=== PATIENT | male | born 1960 | race Caucasian/White ===

== ENCOUNTER 2018-02-22 01:54 | Emergency (ER) | payer SELFPAY ==
[2018-02-22] MEDS ORDERED: ALBUTEROL 2.5 MG/3 ML NEB SOL ONE ×2 (02:23→04:39)
[2018-02-22] MEDS ORDERED: METHYLPREDNISOLONE 125 MG INJ ONE (02:23)
[2018-02-22] MEDS ORDERED: IPRATROPIUM BROM 0.5MG/2.5ML ONE (02:23)
[2018-02-22] MEDS ORDERED: NA CHLORIDE 0.9% 1,000 ML ONE (02:24)
[2018-02-22 02:45] LABS: Absolute Lymphocytes (CBC) 1.4 K/uL (0.7-4.9); Absolute Monocytes 0.4 K/uL (0.1-1.3); Absolute Neutrophil 2.2 K/uL (1.8-8.0); Basophils % 0.9 % (0-1.3); Hematocrit 36.1 % (39.6-49.0); Lymphocytes % 32.1 % (15.3-44.8); MCH 31.5 pg (27.0-35.0); MCV 91.7 fL (80-100); MPV 8.5 fL (7.6-11.3); Monocytes % 9.8 % (3.3-12.3); RBC Red Blood Cell Count 3.94 M/uL (4.33-5.43)
[2018-02-22 02:46] LABS: Protime INR 1.09
[2018-02-22 02:57] LABS: ALT/SGPT 39 U/L (12-78); AST/SGOT 39 U/L (15-37); Albumin 3.3 g/dL (3.4-5.0); Alkaline Phosphatase 66 U/L (45-117); BUN Blood Urea Nitrogen 20 mg/dL (7-18); Bicarbonate 27 mmol/L (21-32); Bilirubin Direct 0.2 mg/dL (0-0.2); Bilirubin Total 0.7 mg/dL (0.2-1.0); CKMB Creatine Kinase MB 2.4 ng/mL (0.3-3.6); Creatine Phosphokinase 114 U/L (39-308); Glucose Level 91 mg/dL (74-106); Magnesium 1.9 mg/dL (1.8-2.4); NT PRO-BNP 86 pg/mL (<125); Potassium 4.2 mmol/L (3.5-5.1); Protein, Total 7.3 g/dL (6.4-8.2); Sodium Level 141 mmol/L (136-145)
[2018-02-22 04:17] LABS: Blood Gas Oxyhemoglobin 88.8 % (94-97); Blood O2 Saturation 91.4 % (92-98.5)
--- NOTE | 2018-02-22 04:37 | ER ---
Nurse's Notes [facility] Name: Joseph Quach Age: 58 yrs Sex: Male : 1960 Arrival Date: 02/22/2018 Time: 01:55 Bed 4 Private MD: Diagnosis: Exacerbation COPD Presentation: 02/22 02:04 Presenting complaint: Patient states: he was diagnosed with pneumonia on the and bb started on a zpack, and steroids but symptoms are getting worse he is having more trouble breathing, is having to sit up to try and sleep. Transition of care: patient was not received from another setting of care. Onset of symptoms was February 13, 2018. Risk Assessment: Do you want to hurt yourself or someone else? Patient reports no desire to harm self or others. Initial Sepsis Screen: Does the patient meet any 2 criteria? No. Patient's initial sepsis screen is negative. Does the patient have a suspected source of infection? Yes: Productive cough/pneumonia. Care prior to arrival: None. 02:04 Method Of Arrival: Ambulatory bb 02:04 Acuity: AISLINN 3 bb Historical: - Allergies: 02:06 NKDA; bb - Home Meds: 02:06 zpack [Active]; promethazine syrup [Active]; Prednisone Oral [Active]; bb - PMHx: 02:06 None; bb - PSHx: 02:06 Hernia repair; bb - Immunization history:: Adult Immunizations up to date. - Social history:: Smoking status: Patient uses tobacco products, smokes one pack cigarettes per day. Patient/guardian denies using alcohol, street drugs. - Ebola Screening: : No symptoms or risks identified at this time. Screenin:15 Abuse screen: Denies threats or abuse. Denies injuries from another. Nutritional lp1 screening: No deficits noted. Tuberculosis screening: No symptoms or risk factors identified. Fall Risk None identified. Assessment: 02:13 General: Appears uncomfortable, Behavior is calm, cooperative, appropriate for age. lp1 Pain: Denies pain. Neuro: Level of Consciousness is awake, alert, obeys commands, Oriented to person, place, time, situation. Cardiovascular: Patient's skin is warm and dry. Rhythm is sinus rhythm. Respiratory: Reports shortness of breath at rest cough that is productive, Airway is patent Trachea midline Respiratory effort is even, labored, Respiratory pattern is symmetrical, Breath sounds with wheezes bilaterally. Onset: The symptoms/episode began/occurred gradually, the patient has moderate shortness of breath. GI: No signs and/or symptoms were reported involving the gastrointestinal system. : No signs and/or symptoms were reported regarding the genitourinary system. EENT: No signs and/or symptoms were reported regarding the EENT system. Derm: Skin is intact, Skin is dry, Skin is normal. Musculoskeletal: Circulation, motion, and sensation intact. 03:30 Reassessment: Patient appears in no apparent distress at this time. Patient states lp1 feeling better. 04:41 Reassessment: Patient states feeling better. Respiratory: Respiratory effort is even, lp1 Breath sounds are clear bilaterally. 05:06 Reassessment: Patient calling for ride home, states unable to get in contact with lp1 friend, will continue calling. Vital Signs: 02:06 BP 131 / 90; Pulse 87; Resp 16 S; Temp 98.3(O); Pulse Ox 96% on R/A; Weight 74.84 kg bb (R); Height 5 ft. 11 in. (180.34 cm) (R); 02:30 BP 134 / 93; Pulse 71; Resp 18; Pulse Ox 96% on R/A; lp1 03:30 BP 134 / 89; Pulse 72; Resp 21; Pulse Ox 94% on R/A; lp1 04:30 BP 135 / 86; Pulse 77; Resp 18; Pulse Ox 94% on R/A; lp1 02:06 Body Mass Index 23.01 (74.84 kg, 180.34 cm) bb ED Course: 01:55 Patient arrived in ED. ds1 02:00 Todd Avila MD is Attending Physician. pkl 02:05 Alex Henderson, JEZ is Primary Nurse. ao 02:05 Triage completed. bb 02:05 Inserted saline lock: 20 gauge in left wrist, using aseptic technique. Blood collected. cc 02:06 Arm band placed on Patient placed in an exam room, on a stretcher, on bus monitor, bb on pulse oximetry. 02:13 EKG done, by ED staff, reviewed by Todd Avila MD. lp1 02:15 Patient has correct armband on for positive identification. Placed in gown. Bed in low lp1 position. Call light in reach. teletypesetter monitor on. Pulse ox on. NIBP on. 02:24 Initial lab(s) drawn, by me, sent to lab. cc 02:37 XRAY Chest (1 view) In Process Unspecified. EDMS 02:37 X-ray completed. Portable x-ray completed in exam room. Patient tolerated procedure kp1 well. 03:39 Ute Carl, RN is Primary Nurse. lp1 03:41 No provider procedures requiring assistance completed. lp1 05:07 IV discontinued, No redness/swelling at site. Pressure dressing applied. lp1 Administered Medications: 02:27 Drug: NS 0.9% 1000 ml Route: IV; Rate: 125 ml/hr; Site: left wrist; ao 04:41 Follow up: IV Status: IV converted to saline lock lp1 02:29 Drug: Albuterol - atroVENT (3:1) (2.5 mg - 0.5 mg) 3 ml Route: Nebulizer; lp1 03:30 Follow up: Response: Marked relief of symptoms lp1 02:29 Drug: SOLU-Medrol 125 mg Route: IVP; Site: left hand; lp1 03:30 Follow up: Response: No adverse reaction lp1 04:40 Drug: Albuterol 1.25 mg Route: Inhalation; lp1 Outcome: 04:37 Discharge ordered by . pklashell 05:07 Condition: good lp1 05:07 Discharge instructions given to patient, Instructed on discharge instructions, follow up and referral plans. medication usage, Demonstrated understanding of instructions, follow-up care, medications, Prescriptions given X 1. 05:24 Discharged to home ambulatory, with friend. lp1 05:25 Patient left the ED. lp1 Signatures: Dispatcher [employer] EDMS Todd Avila MD MD pkBrissa Sprague ds1 Genie Rachel RN RN bb [place] Ute Carl RN RN lp1 Alex Henderson RN RN Kandace Montero [facility] Corrections: (The following items were deleted from the chart) 02:16 02:13 Respiratory: Reports shortness of breath at rest cough that is productive, Airway lp1 is patent Trachea midline Respiratory effort is even, labored, Respiratory pattern is symmetrical, Breath sounds with wheezes bilaterally. the patient has moderate shortness of breath lp1
--- NOTE | 2018-02-22 04:37 | EDPHYS ---
Physician Documentation [facility] Name: Joseph Quach Age: 58 yrs Sex: Male : 1960 Arrival Date: 02/22/2018 Time: 01:55 Bed 4 Private MD: ED Physician Todd Avila HPI: 02/22 02:15 This 58 yrs old Male presents to ER via Ambulatory with complaints of pkl Breathing Difficulty. 02:15 The patient has shortness of breath at rest. Onset: The symptoms/episode began/occurred pkl 1 week(s) ago. Associated signs and symptoms: Pertinent positives: productive cough. The patient has been recently seen by a physician: the patient's primary care provider, with similar presenting complaints, was given a prescription for antibiotics, Z-dev. Historical: - Allergies: 02:06 NKDA; bb - Home Meds: 02:06 zpack [Active]; promethazine syrup [Active]; Prednisone Oral [Active]; bb - PMHx: 02:06 None; bb - PSHx: 02:06 Hernia repair; bb - Immunization history:: Adult Immunizations up to date. - Social history:: Smoking status: Patient uses tobacco products, smokes one pack cigarettes per day. Patient/guardian denies using alcohol, street drugs. - Ebola Screening: : No symptoms or risks identified at this time. ROS: 02:15 Eyes: Negative for injury, pain, redness, and discharge, ENT: Negative for injury, pkl pain, and discharge, Neck: Negative for injury, pain, and swelling, Cardiovascular: Negative for chest pain, palpitations, and edema. 02:15 Respiratory: Positive for cough, with green sputum, shortness of breath, at rest. wheezing. 02:15 Abdomen/GI: Negative for abdominal pain, nausea, vomiting, and diarrhea. 02:15 Back: Negative for acute changes. 02:15 : Negative for urinary symptoms. 02:15 MS/extremity: Negative for acute changes. 02:15 Skin: Negative for rash. 02:15 Neuro: Negative for altered mental status. Exam: 02:15 Head/Face: Normocephalic, atraumatic. Eyes: Pupils equal round and reactive to light, pkl extra-ocular motions intact. Lids and lashes normal. Conjunctiva and sclera are non-icteric and not injected. Cornea within normal limits. Periorbital areas with no swelling, redness, or edema. ENT: Nares patent. No nasal discharge, no septal abnormalities noted. Tympanic membranes are normal and external auditory canals are clear. Oropharynx with no redness, swelling, or masses, exudates, or evidence of obstruction, uvula midline. Mucous membranes moist. Neck: Trachea midline, no thyromegaly or masses palpated, and no cervical lymphadenopathy. Supple, full range of motion without nuchal rigidity, or vertebral point tenderness. No Meningismus. Chest/axilla: Normal chest wall appearance and motion. Nontender with no deformity. No lesions are appreciated. Cardiovascular: Regular rate and rhythm with a normal S1 and S2. No gallops, murmurs, or rubs. Normal PMI, no JVD. No pulse deficits. 02:15 Respiratory: the patient does not display signs of respiratory distress, Respirations: normal, Breath sounds: bronchial sounds, that are mild, rhonchi, that are mild, are scattered. 02:15 Abdomen/GI: Bowel sounds: normal, Palpation: abdomen is soft and non-tender, in all quadrants. 02:15 Back: Exam negative for acute changes. 02:15 : Exam negative for acute changes. 02:15 Musculoskeletal/extremity: Exam is negative for acute changes. 02:15 Skin: Exam negative for rash. 02:15 Neuro: Orientation: is normal, Mentation: is normal, Cranial nerves: grossly normal, Motor: is normal. Vital Signs: 02:06 BP 131 / 90; Pulse 87; Resp 16 S; Temp 98.3(O); Pulse Ox 96% on R/A; Weight 74.84 kg bb (R); Height 5 ft. 11 in. (180.34 cm) (R); 02:30 BP 134 / 93; Pulse 71; Resp 18; Pulse Ox 96% on R/A; lp1 03:30 BP 134 / 89; Pulse 72; Resp 21; Pulse Ox 94% on R/A; lp1 04:30 BP 135 / 86; Pulse 77; Resp 18; Pulse Ox 94% on R/A; lp1 02:06 Body Mass Index 23.01 (74.84 kg, 180.34 cm) MDM: 02:00 Patient medically screened. pkl 04:36 Data reviewed: vital signs, nurses notes, lab test result(s), EKG, radiologic studies, pkl plain films. 02/22 02:12 Order name: Basic Metabolic Panel; Complete Time: 04:06 pkl 02/22 02:12 Order name: CBC with Diff; Complete Time: 04:06 pkl 02/22 02:12 Order name: Ckmb; Complete Time: 04:06 pkl 02/22 02:12 Order name: CPK; Complete Time: 04:06 pkl 02/22 02:12 Order name: LFT's; Complete Time: 04:06 pkl 02/22 02:12 Order name: Magnesium; Complete Time: 04:06 pkl 02/22 02:12 Order name: NT PRO-BNP; Complete Time: 04:06 pkl 02/22 02:12 Order name: PT-INR; Complete Time: 04:06 pkl 02/22 02:12 Order name: Ptt, Activated; Complete Time: 04:06 pkl 02/22 02:12 Order name: Troponin (emerg Dept Use Only); Complete Time: 04:06 pkl 02/22 02:15 Order name: Blood Culture Adult (2) pk 02/22 02:15 Order name: Sputum Culture pk 02/22 02:15 Order name: Procalcitonin; Complete Time: 04:06 pkl 02/22 02:15 Order name: Lactate; Complete Time: 04:06 pkl 02/22 02:12 Order name: XRAY Chest (1 view) pk 02/22 02:12 Order name: EKG; Complete Time: 02:13 pkl 02/22 02:12 Order name: Cardiac monitoring; Complete Time: 02: pkl 02/22 02:12 Order name: EKG - Nurse/Tech; Complete Time: 02: pkl 02/22 02:12 Order name: IV Saline Lock; Complete Time: 02: pkl 02/22 02:12 Order name: Labs collected and sent; Complete Time: 02: pkl 02/22 02:12 Order name: O2 Per Protocol; Complete Time: 02: pkl 02/22 02:12 Order name: O2 Sat Monitoring; Complete Time: 02: pkl 02/22 02:15 Order name: ABG; Complete Time: 04: pkl 02/22 02:15 Order name: Blood Culture [facility] 02/22 02:15 Order name: Sputum Culture [facility] 02/22 05:05 Order name: Urine Dipstick--Ancillary (enter results); Complete Time: 05:47 ms 02/22 02:12 Order name: Urine Dipstick-Ancillary (obtain specimen); Complete Time: 04:55 pkl Administered Medications: 02:27 Drug: NS 0.9% 1000 ml Route: IV; Rate: 125 ml/hr; Site: left wrist; ao 04:41 Follow up: IV Status: IV converted to saline lock lp1 02:29 Drug: Albuterol - atroVENT (3:1) (2.5 mg - 0.5 mg) 3 ml Route: Nebulizer; lp1 03:30 Follow up: Response: Marked relief of symptoms lp1 02:29 Drug: SOLU-Medrol 125 mg Route: IVP; Site: left hand; lp1 03:30 Follow up: Response: No adverse reaction lp1 04:40 Drug: Albuterol 1.25 mg Route: Inhalation; lp1 Disposition: 02/22/18 04:37 Discharged to Home. Impression: Exacerbation COPD. - Condition is Stable. - Prescriptions for Albuterol Sulfate 2.5 mg /3 mL (0.083 %) Inhalation Solution for Nebulization - inhale 1 unit by NEBULIZATION route every 8 hours As needed; 1 box. - Medication Reconciliation Form, Thank You Letter, Antibiotic Education, Prescription Opioid Use form. - Follow up: Private Physician; When: 2 - 3 days; Reason: Re-evaluation by your physician. - Problem is new. - Symptoms have improved. Signatures: Dispatcher [employer] [facility] Todd Avila MD MD pkl Genie Rachel, RN RN bb Ute Carl RN RN lp1 Alex Henderson, RN RN ao Corrections: (The following items were deleted from the chart) 05:25 04:37 02/22/2018 04:37 Discharged to Home. Impression: Exacerbation COPD. Condition is lp1 Stable. Forms are Medication Reconciliation Form, Thank You Letter, Antibiotic Education, Prescription Opioid Use. Follow up: Private Physician; When: 2 - 3 days; Reason: Re-evaluation by your physician. Problem is new. Symptoms have improved. pkl
[2018-02-22 05:19] LABS: Urine Blood NEGATIVE (NEG); Urine Glucose NEGATIVE (NEG); Urine Protein NEGATIVE (NEG)
--- NOTE | 2018-02-22 06:46 | EKG ---
Test Date: 2018-02-22 Test Time: 02:04:39 Program Medical Director: CARLIE MEASUREMENT RESULTS: Intervals: Rate: 85 TX: 128 QRSD: 82 QT: 356 QTc: 423 [place]: P: 79 TX: 128 QRS: 71 T: 61 INTERPRETIVE STATEMENTS: Normal sinus rhythm Normal ECG No previous ECG available for comparison Electronically Signed On 02-22-18 06:45:53 CDT by Shaka De Paz
--- NOTE | 2018-02-22 07:23 | RAD REPORT ---
EXAM DESCRIPTION: RAD - Chest Single View - 02/22/2018 2:39 am CLINICAL HISTORY: COPD, cough, history of pneumonia diagnosis COMPARISON: None. TECHNIQUE: AP portable chest image was obtained 0225 hours . FINDINGS: Lungs are clear. Heart and vasculature are normal. No measurable pleural effusion and no p neumothorax. No gross bony abnormality seen. No acute aortic findings suspected. IMPRESSION: No acute cardiopulmonary process.
== END 2018-02-22 05:25 | disposition home or self-care (01) ==
LOC: ER 01:54
DX: J44.1 Chronic obstructive pulmonary disease with (acute) exacerbation (principal); F17.210 Nicotine dependence, cigarettes, uncomplicated
CPT/HCPCS: 36415; 71045; 80048; 80076; 81003; 82550; 82553; 82805; 83605; 83735; 83880; 84145; 84484; 85025; 85610; 85730; 87040; 87070; 87205; 93005; 94640; 96361; 96374; 99285; J2930; J7030

== ENCOUNTER 2020-10-20 10:08 | Inpatient (IN) | payer SELFPAY ==
[2020-10-20] MEDS ORDERED: METHYLPREDNISOLONE 125 MG INJ ONE (10:43)
[2020-10-20] MEDS ORDERED: IPRATROPIUM BROM 0.5MG/2.5ML ONE (10:44)
[2020-10-20] MEDS ORDERED: Magnesium Sulfate 2gm IVPB 2 G/50 ML BAG IV ONE (10:44)
[2020-10-20] MEDS ORDERED: ALBUTEROL 2.5 MG/3 ML NEB SOL ONE ×2 (10:44→12:29)
[2020-10-20 10:54] LABS: Absolute Lymphocytes (CBC) 0.6 K/uL (0.7-4.9); Basophils % 0.9 % (0-1.3); Hematocrit 38.1 % (39.6-49.0); Lymphocytes % 16.1 % (15.3-44.8); MPV 7.8 fL (7.6-11.3)
[2020-10-20 10:55] LABS: Protime INR 1.19
[2020-10-20 11:10] LABS: ALT/SGPT 27 U/L (12-78); AST/SGOT 33 U/L (15-37); Albumin 2.7 g/dL (3.4-5.0); Alkaline Phosphatase 86 U/L (45-117); BUN Blood Urea Nitrogen 16 mg/dL (7-18); Bicarbonate 31 mmol/L (21-32); Bilirubin Direct 0.3 mg/dL (0-0.2); Bilirubin Total 0.9 mg/dL (0.2-1.0); Glucose Level 119 mg/dL (74-106); Magnesium 1.7 mg/dL (1.8-2.4); NT PRO-BNP 64 pg/mL (<125); Potassium 4.4 mmol/L (3.5-5.1); Sodium Level 141 mmol/L (136-145); Troponin (Emerg Dept Use Only) < 0.02 ng/mL (0.0-0.045)
[2020-10-20 11:35] LABS: Blood Morphology Comment NOT SEEN (NOT SEEN); Platelet Estimate DECR; White Blood Cell Scan OK (OK)
[2020-10-20] MEDS ORDERED: HYDROCODONE/CHLORPHEN 5 ML/OSYR ONE (11:41)
--- NOTE | 2020-10-20 11:51 | RAD REPORT ---
EXAM DESCRIPTION: RAD - Chest Single View - 10/20/2020 11:36 am CLINICAL HISTORY: DYSPNEA Chest pain. COMPARISON: Chest Single View dated 02/22/2018 FINDINGS: Portable technique limits examination quality. The lungs are emphysematous but grossly clear. The heart is normal in size. No displaced fractures. IMPRESSION: No acute intrathoracic process suspected.
--- NOTE | 2020-10-20 12:21 | ER ---
Nurse's Notes [facility] Name: Joseph Quach Age: 60 yrs Sex: Male : 1960 Arrival Date: 10/20/2020 Time: 10:09 Bed 8 Private MD: Diagnosis: Chronic obstructive pulmonary disease with (acute) exacerbation;Acute respiratory failure with hypoxia Presentation: 10/20 10:16 Chief complaint: Patient states: SOB and cough since Tuesday night getting worse each ll1 day. No fever at home. Coronavirus screen: Client denies travel out of the [place] in the last 14 days. cough unrelated to allergies, difficulty breathing, shortness of breath, Client presents with at least one sign or symptom that may indicate coronavirus-19. Standard/surgical mask placed on the client. Ebola Screen: Patient denies travel to an Ebola-affected area in the 21 days before illness onset. Initial Sepsis Screen: Does the patient meet any 2 criteria? RR > 20 per min. HR > 90 bpm. Yes Does the patient have a suspected source of infection? Yes: Productive cough/pneumonia. Risk Assessment: Do you want to hurt yourself or someone else? Patient reports no desire to harm self or others. Onset of symptoms was October 18, 2020. 10:16 Method Of Arrival: Ambulatory ll1 10:16 Acuity: AISLINN 2 ll1 Triage Assessment: 10:25 Respiratory: the patient has severe shortness of breath. sv Historical: - Allergies: 10:16 NKDA; ll1 - PMHx: 10:16 COPD; ll1 - PSHx: 10:16 Hernia repair; ll1 - Immunization history:: Flu vaccine is up to date. - Social history:: Smoking status: Patient reports the use of cigarette tobacco products, denies chronic smoking, but will smoke occasionally, Reported history of juuling and/or vaping. Screenin:25 Abuse screen: Denies threats or abuse. Denies injuries from another. Nutritional sv screening: No deficits noted. Tuberculosis screening: No symptoms or risk factors identified. Fall Risk None identified. Assessment: 10:42 General: Appears in no apparent distress. uncomfortable, well developed, Behavior is sv calm, cooperative, appropriate for age. Pain: Complains of pain in chest. Neuro: Level of Consciousness is awake, alert, obeys commands, Oriented to person, place, time, situation, Moves all extremities. Full function. Cardiovascular: Patient's skin is warm and dry. Pulses are palpable in right radial artery and left radial artery Rhythm is sinus tachycardia. Respiratory: Airway is patent Respiratory effort is labored, pursed lip, shallow, weak, using tripod position, Respiratory pattern is tachypnea. Derm: Skin is intact, Skin is pink, warm \T\ dry. Musculoskeletal: Range of motion: intact in all extremities. 11:05 Reassessment: Patient appears in no apparent distress at this time. No changes from sv previously documented assessment. Patient and/or family updated on plan of care and expected duration. Pain level reassessed. Patient is alert, oriented x 3, equal unlabored respirations, skin warm/dry/pink. 12:20 Reassessment: Patient appears in no apparent distress at this time. Patient and/or sv family updated on plan of care and expected duration. Pain level reassessed. Patient is alert, oriented x 3, equal unlabored respirations, skin warm/dry/pink. Patient states feeling better. 12:50 Reassessment: Patient appears in no apparent distress at this time. Patient and/or sv family updated on plan of care and expected duration. Pain level reassessed. Patient is alert, oriented x 3, equal unlabored respirations, skin warm/dry/pink. 13:04 Reassessment: Dr Bright Bowers at the bedside. sv 13:39 Reassessment: Patient appears in no apparent distress at this time. Patient and/or sv family updated on plan of care and expected duration. Pain level reassessed. Patient is alert, oriented x 3, equal unlabored respirations, skin warm/dry/pink. 14:23 Reassessment: Patient appears in no apparent distress at this time. No changes from hb previously documented assessment. Patient and/or family updated on plan of care and expected duration. Pain level reassessed. Patient is alert, oriented x 3, equal unlabored respirations, skin warm/dry/pink. 14:41 Reassessment: Attempted to call report, nurse unavailable. sv 15:20 Reassessment: Attempted to call report, nurse unavailable. sv 15:41 Reassessment: Attempted to call report, nurse unavailable. sv Vital Signs: 10:16 BP 142 / 73; Pulse 106; Resp 26; Temp 98.0; Pulse Ox 90% on R/A; Weight 106.59 kg; ll1 Height 6 ft. 0 in. (182.88 cm); Pain 8/10; 10:46 BP 121 / 78; Pulse 102; Resp 20; Pulse Ox 98% on Nebulizer Mask; sv 11:05 Pulse Ox 83% on R/A; sv 11:26 BP 116 / 82; Pulse 104; Resp 36; Pulse Ox 91% on 2 lpm NC; sv 12:21 BP 131 / 88; Pulse 99; Resp 28; Pulse Ox 94% on Nebulizer Mask; sv 13:05 BP 133 / 89; Pulse 101; Resp 25; Pulse Ox 95% on 2 lpm NC; sv 14:23 BP 126 / 85; Pulse 94; Resp 24; Pulse Ox 95% on 2 lpm NC; hb 16:11 BP 148 / 84; Pulse 91; Resp 24; Pulse Ox 92% on 2 lpm NC; sv 10:16 Body Mass Index 31.87 (106.59 kg, 182.88 cm) ll1 10:16 85-91% RA during triage ll1 11:05 Pt placed on O2 \T\ 2L per NC. O2 sat up to 91%. Informed Dennis DIAZ sv ED Course: 10:09 Patient arrived in ED. ds1 10:12 Dennis Lara PA is PHCP. jr8 10:12 Pee Bowers MD is Attending Physician. jr8 10:12 Nara Guevara, JEZ is Primary Nurse. sv 10:15 Arm band placed on Patient placed in an exam room, on a stretcher. ll1 10:18 Triage completed. ll1 10:25 Patient has correct armband on for positive identification. Bed in low position. Call sv light in reach. patient monitor on. Pulse ox on. NIBP on. Head of bed elevated. 10:25 Inserted saline lock: 20 gauge in left wrist, using aseptic technique. Blood collected. sv Flushed left with 5 ml normal saline. 10:45 Awaiting for x-ray. sv 11:31 X-ray(s) taken. sv 11:32 X-ray completed. Portable x-ray completed in exam room. Patient tolerated procedure sw well. 11:33 XRAY Chest (1 view) In Process Unspecified. EDMS 12:20 Bright Bowers MD is Hospitalizing Provider. jr8 12:44 COVID swab sent to lab. sv 13:29 EKG done, by ED staff, reviewed by Dennis DIAZ. sv 14:09 Awaiting bed assignment. sv 14:42 No provider procedures requiring assistance completed. Patient admitted, IV remains in sv place. intact. Administered Medications: 10:30 Drug: Albuterol - atroVENT (ipratropium) (3:1) (2.5 mg - 0.5 mg) 3 ml Route: Nebulizer; sv 11:00 Follow up: Response: No adverse reaction sv 10:30 Drug: SOLU-Medrol 125 mg Route: IVP; Site: left wrist; sv 11:00 Follow up: Response: No adverse reaction sv 10:32 Drug: Magnesium Sulfate 2 grams Route: IVPB; Infused Over: 2 hrs; Site: left wrist; sv 11:30 Follow up: Response: No adverse reaction; IV Status: Completed infusion; IV Intake: 50mlsv 11:25 Drug: Tussionex Pennkinetic ER (chlorpheniramine-hydrocodone) 5 ml Route: PO; sv 12:19 Follow up: Response: No adverse reaction; Marked relief of symptoms sv 12:18 Drug: LevaQUIN 500 mg Volume: 100 ml; Route: IVPB; Infused Over: 60 mins; Site: left sv wrist; 13:20 Follow up: Response: No adverse reaction; IV Status: Completed infusion; IV Intake: sv 100ml 12:20 Drug: Albuterol 2.5 mg Route: Inhalation; sv 12:20 Drug: Albuterol 2.5 mg Route: Inhalation; sv 12:20 Drug: Albuterol 2.5 mg Route: Inhalation; sv 13:41 Drug: Tylenol 650 mg Route: PO; sv Intake: 11:30 IV: 50ml; Total: 50ml. sv 13:20 IV: 100ml; Total: 150ml. sv Outcome: 12:20 Decision to Hospitalize by Provider. jr8 16:12 Admitted to Tele accompanied by nurse, via wheelchair, room 223, with oxygen, with sv chart, Report called to Eliot STORY 16:12 Condition: stable 16:12 Instructed on the need for admit. 16:24 Patient left the ED. sv Signatures: Dispatcher [employer] EDNara Alba RN RN Brissa Boyd ds1 Dennis Lara PA PA jr8 Mabel Oro Heather, RN RN hb Romeo Ashton RN RN ll1
--- NOTE | 2020-10-20 12:21 | EDPHYS ---
Physician Documentation [facility] Name: Joseph Quach Age: 60 yrs Sex: Male : 1960 Arrival Date: 10/20/2020 Time: 10:09 Bed 8 Private MD: ED Physician Pee Bowers HPI: 10/20 10:47 This 60 yrs old Male presents to ER via Ambulatory with complaints of jr8 Shortness Of Breath. 10:47 The patient has shortness of breath at rest. Onset: The symptoms/episode began/occurred jr8 acutely, 2 day(s) ago. Duration: The symptoms are continuous, and are steadily getting worse. The patient's shortness of breath is aggravated by coughing, talking, walking. Associated signs and symptoms: Pertinent positives: chest pain. Severity of symptoms: At their worst the symptoms were moderate in the emergency department the symptoms are unchanged. It is unknown whether or not the patient has had similar symptoms in the past. The patient has not recently seen a physician. Patient with history of COPD. Currently without breathing treatments at home. Stated that since this past Tuesday has had increased SOB with coughing that will not go away. Got markedly worse today. Stated that he also started to have chest pains which he normally does not have. Historical: - Allergies: 10:16 NKDA; ll1 - PMHx: 10:16 COPD; ll1 - PSHx: 10:16 Hernia repair; ll1 - Immunization history:: Flu vaccine is up to date. - Social history:: Smoking status: Patient reports the use of cigarette tobacco products, denies chronic smoking, but will smoke occasionally, Reported history of juuling and/or vaping. ROS: 10:47 Eyes: Negative for injury, pain, redness, and discharge, ENT: Negative for injury, jr8 pain, and discharge, Neck: Negative for injury, pain, and swelling, Abdomen/GI: Negative for abdominal pain, nausea, vomiting, diarrhea, and constipation, Back: Negative for injury and pain, MS/Extremity: Negative for injury and deformity, Skin: Negative for injury, rash, and discoloration, Neuro: Negative for headache, weakness, numbness, tingling, and seizure. 10:47 Cardiovascular: Positive for chest pain, Negative for edema, orthopnea, palpitations, paroxysmal nocturnal dyspnea. 10:47 Respiratory: Positive for cough, dyspnea on exertion, shortness of breath, wheezing, expiratory. Exam: 10:49 Eyes: Pupils equal round and reactive to light, extra-ocular motions intact. Lids and jr8 lashes normal. Conjunctiva and sclera are non-icteric and not injected. Cornea within normal limits. Periorbital areas with no swelling, redness, or edema. ENT: Nares patent. No nasal discharge, no septal abnormalities noted. Tympanic membranes are normal and external auditory canals are clear. Oropharynx with no redness, swelling, or masses, exudates, or evidence of obstruction, uvula midline. Mucous membranes moist. Neck: Trachea midline, no thyromegaly or masses palpated, and no cervical lymphadenopathy. Supple, full range of motion without nuchal rigidity, or vertebral point tenderness. No Meningismus. Chest/axilla: Normal chest wall appearance and motion. Nontender with no deformity. No lesions are appreciated. Abdomen/GI: Soft, non-tender, with normal bowel sounds. No distension or tympany. No guarding or rebound. No evidence of tenderness throughout. Back: No spinal tenderness. No costovertebral tenderness. Full range of motion. Skin: Warm, dry with normal turgor. Normal color with no rashes, no lesions, and no evidence of cellulitis. MS/ Extremity: Pulses equal, no cyanosis. Neurovascular intact. Full, normal range of motion. Neuro: Awake and alert, GCS 15, oriented to person, place, time, and situation. Cranial nerves II-XII grossly intact. Motor strength 5/5 in all extremities. Sensory grossly intact. 10:49 Constitutional: The patient appears alert, awake, uncomfortable. 10:49 Cardiovascular: Rate: tachycardic, Rhythm: regular, Pulses: Pulses are 2+ in right radial artery and left radial artery. Heart sounds: normal, normal S1and S2, no S3 or S4, no murmur, no rub, no gallop, Edema: 1+ edema to level of left midcalf, left ankle, left foot, right midcalf, right ankle and right foot, JVD: is not appreciated. 10:49 Respiratory: mild respiratory distress is noted, Respirations: labored breathing, tachypnea, Breath sounds: wheezing: expiratory that is moderate, is heard diffusely. 13:36 ECG was reviewed by the Attending Physician. jr8 Vital Signs: 10:16 BP 142 / 73; Pulse 106; Resp 26; Temp 98.0; Pulse Ox 90% on R/A; Weight 106.59 kg; ll1 Height 6 ft. 0 in. (182.88 cm); Pain 8/10; 10:46 BP 121 / 78; Pulse 102; Resp 20; Pulse Ox 98% on Nebulizer Mask; sv 11:05 Pulse Ox 83% on R/A; sv 11:26 BP 116 / 82; Pulse 104; Resp 36; Pulse Ox 91% on 2 lpm NC; sv 12:21 BP 131 / 88; Pulse 99; Resp 28; Pulse Ox 94% on Nebulizer Mask; sv 13:05 BP 133 / 89; Pulse 101; Resp 25; Pulse Ox 95% on 2 lpm NC; sv 14:23 BP 126 / 85; Pulse 94; Resp 24; Pulse Ox 95% on 2 lpm NC; hb 16:11 BP 148 / 84; Pulse 91; Resp 24; Pulse Ox 92% on 2 lpm NC; sv 10:16 Body Mass Index 31.87 (106.59 kg, 182.88 cm) ll1 10:16 85-91% RA during triage ll1 11:05 Pt placed on O2 \T\ 2L per NC. O2 sat up to 91%. Informed Dennis DIAZ MDM: 10:12 Patient medically screened. jr8 12:19 Data reviewed: vital signs, nurses notes, lab test result(s), EKG, radiologic studies, jr8 plain films. Data interpreted: Pulse oximetry: on 3L(s) per nasal canula, is 91 %. Interpretation: borderline. Counseling: I had a detailed discussion with the patient and/or guardian regarding: the historical points, exam findings, and any diagnostic results supporting the discharge/admit diagnosis, lab results, radiology results, the need for further work-up and treatment in the hospital. 10/20 10:25 Order name: Basic Metabolic Panel; Complete Time: : [facility] 10/20 10:25 Order name: CBC with Diff; Complete Time: :35 8 10/20 10:25 Order name: LFT's; Complete Time: 11: 8 10/20 10:25 Order name: Magnesium; Complete Time: 11: [facility] 10/20 10:25 Order name: NT PRO-BNP; Complete Time: 11:35 10/20 10:25 Order name: PT-INR; Complete Time: 11:02 8 10/20 10:25 Order name: Troponin (emerg Dept Use Only); Complete Time: 11:35 8 10/20 10:25 Order name: XRAY Chest (1 view); Complete Time: 11:57 8 10/20 10:25 Order name: Procalcitonin; Complete Time: 11:35 8 10/20 10:56 Order name: CBC Smear Scan; Complete Time: 11:35 EDMS 10/20 13:27 Order name: SARS-COV-2 RT PCR; Complete Time: 13:28 EDMS 10/20 10:25 Order name: EKG; Complete Time: 10:26 10/20 10:25 Order name: Cardiac monitoring; Complete Time: 10:39 10/20 10:25 Order name: EKG - Nurse/Tech; Complete Time: 13:41 10/20 10:25 Order name: IV Saline Lock; Complete Time: 10:39 10/20 10:25 Order name: Labs collected and sent; Complete Time: 10:39 10/20 10:25 Order name: O2 Per Protocol; Complete Time: 10:39 10/20 10:25 Order name: O2 Sat Monitoring; Complete Time: 10:39 jr EC:36 Rate is 99 beats/min. Rhythm is regular, Normal Sinus Rhythm. QRS Sharon is Normal. NC jr8 interval is normal at 136 msec. QRS interval is normal at 82 msec. QT interval is normal at 348 msec. No Q waves. T waves are Normal. No ST changes noted. Clinical impression: Normal ECG. Interpreted by me. Reviewed by me. Administered Medications: 10:30 Drug: Albuterol - atroVENT (ipratropium) (3:1) (2.5 mg - 0.5 mg) 3 ml Route: Nebulizer; sv 11:00 Follow up: Response: No adverse reaction sv 10:30 Drug: SOLU-Medrol 125 mg Route: IVP; Site: left wrist; sv 11:00 Follow up: Response: No adverse reaction sv 10:32 Drug: Magnesium Sulfate 2 grams Route: IVPB; Infused Over: 2 hrs; Site: left wrist; sv 11:30 Follow up: Response: No adverse reaction; IV Status: Completed infusion; IV Intake: 50mlsv 11:25 Drug: Tussionex Pennkinetic ER (chlorpheniramine-hydrocodone) 5 ml Route: PO; sv 12:19 Follow up: Response: No adverse reaction; Marked relief of symptoms sv 12:18 Drug: LevaQUIN 500 mg Volume: 100 ml; Route: IVPB; Infused Over: 60 mins; Site: left sv wrist; 13:20 Follow up: Response: No adverse reaction; IV Status: Completed infusion; IV Intake: sv 100ml 12:20 Drug: Albuterol 2.5 mg Route: Inhalation; sv 12:20 Drug: Albuterol 2.5 mg Route: Inhalation; sv 12:20 Drug: Albuterol 2.5 mg Route: Inhalation; sv 13:41 Drug: Tylenol 650 mg Route: PO; sv Disposition: 16:43 Co-signature as Attending Physician, Pee Bowers MD. rn Disposition: 10/20/20 12:20 Hospitalization ordered by Bright Bowers for Inpatient Admission. Preliminary diagnosis are Chronic obstructive pulmonary disease with (acute) exacerbation, Acute respiratory failure with hypoxia. - Bed requested for Telemetry/MedSurg (Inpatient). - Status is Inpatient Admission. sv - Condition is Stable. - Problem is new. - Symptoms have improved. Signatures: Dispatcher [employer] EDMN Nara Guevara RN RN Pee Bowers MD MD rn Roszak, Josh, PA PA jr8 Babar Arreaga RN RN ja1 Romeo Ashton RN RN ll1 Corrections: (The following items were deleted from the chart) 10:49 10:47 Patient with history of COPD. Currently without breathing treatments at home. jr8 Stated that since this past Tuesday has had increased SOB with coughing that will not go away. Got markedly worse today. jr8 12:46 12:28 CORONAVIRUS+MR.LAB.BRZ ordered. EDMN EDMN 14:17 12:20 Hospitalization Ordered by Bright Bowers MD for Inpatient Admission. Preliminary ja1 diagnosis is Chronic obstructive pulmonary disease with (acute) exacerbation; Acute respiratory failure with hypoxia. Bed requested for Telemetry/MedSurg (Inpatient). Status is Inpatient Admission. Condition is Stable. Problem is new. Symptoms have improved. jr8 16:24 14:17 10/20/2020 12:20 Hospitalization Ordered by Bright Bowers MD for Inpatient sv Admission. Preliminary diagnosis is Chronic obstructive pulmonary disease with (acute) exacerbation; Acute respiratory failure with hypoxia. Bed requested for Telemetry/MedSurg (Inpatient). Status is Inpatient Admission. Condition is Stable. Problem is new. Symptoms have improved. ja1
[2020-10-20] MEDS ORDERED: Levofloxacin500mg IV 500 MG/100 ML BAG IV ONE (12:29)
--- NOTE | 2020-10-20 13:36 | P.HP ---
Certification for Inpatient Patient admitted to: Inpatient With expected LOS: >2 Midnights Practitioner: I am a practitioner with admitting privileges, knowledge of patient current condition, hospital course, and medical plan of care. Services: Services provided to patient in accordance with Admission requirements found in Title 42 Section 412.3 of the Code of Federal Regulations Patient History Date of Service: 10/20/20 Reason for admission: COPD Exacerbation History of Present Illness: 60yo M, PMH: hep c, cirrhosis, COPD, presents to ED due to worsening SOB/Marsh over the past ~2-3 days. Associated with dizziness, mild chest pain, and wheezing. He has been taking his Advair as prescribed, he ran out of the his albuterol inhaler prior to his exacerbation. He was waiting to get a hold of his PCP to get a refill, however shortness of breath worsens was severe enough to bring him to the ER. In the ER, he was noted to be hypoxic to the low 80s, required multiple nebulizers and high-dose steroids. He had marked improvement remained hypoxic. CXR: Emphysematous but grossly clear labs notable for WBC: 3.8, hemoglobin 12.8, BMP rather unremarkable, negative troponin, negative pro calcitonin. COVID negative Allergies No Known Drug Allergies Allergy (Unverified 02/22/18 05:29) Unknown Home Medications: Albuterol Sulfate [Albuterol Sulfate 0.083% Neb Soln] 1 inh IH Q8H 10/20/20 Carvedilol [Coreg] 1 tab PO BID 10/20/20 Fluticasone [Flovent Hfa 110*] 1 puff IH BID 10/20/20 Furosemide 20 mg PO BID 10/20/20 Gabapentin 1 tab PO TID PRN 10/20/20 - Past Medical/Surgical History -: Hernia repair - Family History Family History: Reviewed- Non-Contributory - Family History Sister -: Other (see notes) (Lupus) Brother -: Other (see notes) (Lupus) - Social History Smoking Status: Current every day smoker Place of Residence: Home Review of Systems 10-point ROS is otherwise unremarkable Physical Examination - Physical Exam General: Alert, Moderate distress HEENT: Sclerae nonicteric Respiratory: Diminished, Expiratory wheezes Cardiovascular: No edema, Regular rate/rhythm Gastrointestinal: Soft and benign, Non-distended, No tenderness Musculoskeletal: No tenderness Integumentary: No rashes Neurological: Normal speech, Normal affect - Studies Laboratory Data (last 24 hrs) 10/20/20 10:20: PT 13.7 H, INR 1.19 10/20/20 10:20: WBC 3.80 L, Hgb 12.8 L, Hct 38.1 L, Plt Count 94 L 10/20/20 10:20: Sodium 141, Potassium 4.4, BUN 16, Creatinine 0.61, Glucose 119 H, Magnesium 1.7 L, Total Bilirubin 0.9, AST 33, ALT 27, Alkaline Phosphatase 86 Assessment and Plan - Advance Directives Does patient have a Living Will: No Does patient have a Durable POA for Healthcare: No Physician Review Additional Text: Problem list: Acute hypoxemic respiratory failure secondary to acute on chronic COPD exacerbation Liver cirrhosis History of hepatitis-C Nicotine dependence -patient with significant tachypnea, and hypoxia on presentation -admit, treat COPD with IV Solu-Medrol, nebulizers, Advair, azithromycin, wean O2 as tolerated -patient with some improvement here in the ED -this is the 2nd admission for COPD, 1st was approximately 6 months ago -has not seen a airplane engineer for this issue -Discussed tobacco cessation at length, patient has been trying a switch to a vape pe Dispo: anticipate dc home in ~48hrs Time Spent Managing Pts Care (In Minutes): 60
[2020-10-20] MEDS ORDERED: ACETAMINOPHEN 325 MG TABLET ONE (13:46)
[2020-10-20] MEDS ORDERED: ACETAMINOPHEN 500 MG TAB PO PRN (15:48)
[2020-10-20] MEDS: IPRATROPIUM BROM 0.5MG/2.5ML NEB SCH ×2 (15:48→19:20)
[2020-10-20 17:14] VITALS: BMI 31.8
[2020-10-20] MEDS: METHYLPREDNISOLONE 40 MG INJ IV SCH (17:44)
[2020-10-20] MEDS: AZITHROMYCIN IV 500 MG in NA CHLORIDE 0.9% 250 ML IVPB SCH (17:44)
[2020-10-20] MEDS: ENOXAPARIN 40 MG/0.4 ML SQ SCH (17:44)
[2020-10-20] MEDS: ALBUTEROL 2.5 MG/3 ML NEB SOL NEB PRN (19:20)
[2020-10-20] MEDS: DULERA 100/5 (MOMETASONE/FORMOTEROL) INHALER IH SCH (21:30)
[2020-10-20] MEDS: BENZONATATE 100 MG CAP PO PRN (22:47)
[2020-10-20 23:22] LABS: Urine Appearance CLEAR; Urine Bilirubin NEGATIVE (NEG); Urine Blood NEGATIVE (NEG); Urine Color YELLOW; Urine Glucose 3+ (NEG); Urine Protein NEGATIVE (NEG); Urine Specific Gravity >=1.030 (1.005-1.030); Urine pH 6.5 (5.0-7.0)
[2020-10-20 23:26] LABS: Urine Microscopic Reflex NO UMIC
[2020-10-21] MEDS: METHYLPREDNISOLONE 40 MG INJ IV SCH ×3 (01:30→16:06)
[2020-10-21] MEDS: IPRATROPIUM BROM 0.5MG/2.5ML NEB SCH ×4 (02:55→19:28)
[2020-10-21] MEDS: ALBUTEROL 2.5 MG/3 ML NEB SOL NEB PRN (02:55)
[2020-10-21 04:31] LABS: Absolute Lymphocytes (CBC) 0.3 K/uL (0.7-4.9); Hematocrit 37.2 % (39.6-49.0); Lymphocytes % 7.9 % (15.3-44.8); MPV 8.4 fL (7.6-11.3); RBC Red Blood Cell Count 4.05 M/uL (4.33-5.43)
[2020-10-21 04:55] LABS: ALT/SGPT 26 U/L (12-78); AST/SGOT 30 U/L (15-37); Albumin 2.7 g/dL (3.4-5.0); Alkaline Phosphatase 75 U/L (45-117); BUN Blood Urea Nitrogen 21 mg/dL (7-18); Bicarbonate 30 mmol/L (21-32); Bilirubin Total 0.5 mg/dL (0.2-1.0); Glucose Level 176 mg/dL (74-106); Magnesium 2.1 mg/dL (1.8-2.4); Potassium 4.4 mmol/L (3.5-5.1); Protein, Total 7.1 g/dL (6.4-8.2); Sodium Level 139 mmol/L (136-145)
[2020-10-21 05:30] LABS: Blood Morphology Comment NOT SEEN (NOT SEEN); Platelet Estimate DECR
--- NOTE | 2020-10-21 06:21 | EKG ---
Test Date: 2020-10-20 Test Time: 13:32:04 Molder Shoulder Pad: SV MEASUREMENT RESULTS: Intervals: Rate: 99 ND: 136 QRSD: 82 QT: 348 QTc: 446 Pollok: P: 68 ND: 136 QRS: 69 T: 57 INTERPRETIVE STATEMENTS: Normal sinus rhythm Normal ECG Compared to ECG 02/22/2018 02:04:39 No significant changes Electronically Signed On 10-21-20 06:19:39 CDT by Manuel Joya
[2020-10-21] MEDS: ENOXAPARIN 40 MG/0.4 ML SQ SCH (09:00)
[2020-10-21] MEDS: DULERA 100/5 (MOMETASONE/FORMOTEROL) INHALER IH SCH ×2 (09:14→21:00)
[2020-10-21] MEDS: BENZONATATE 100 MG CAP PO PRN (09:15)
[2020-10-21] MEDS: AZITHROMYCIN IV 500 MG in NA CHLORIDE 0.9% 250 ML IVPB SCH (09:16)
--- NOTE | 2020-10-21 14:27 | P.PN ---
Subjective Date of Service: 10/21/20 Chief Complaint: COPD Exacerbation Patient states he is doing better compared to yesterday. He is still occasionally wheezing audibly. He is maintained on 2 L oxygen by nasal cannula. Physical Examination - Vital Signs Temperature: 97.4 F Blood Pressure: 160/82 Pulse: 95 Respirations: 20 Pulse Ox (%): 93 - Physical Exam General: Alert, In no apparent distress, Oriented x3 HEENT: Mucous membr. moist/pink Neck: Supple, JVD not distended Respiratory: Diminished (Bilateral lungs), Expiratory wheezes (Bilateral lungs) Cardiovascular: No edema, Regular rate/rhythm, Normal S1 S2 Gastrointestinal: Normal bowel sounds, Soft and benign, Non-distended, No tenderness Integumentary: No rashes Neurological: Normal speech, Normal strength at 5/5 x4 extr, Cranial nerves 3-12 intact Assessment And Plan - Current Problems (Diagnosis) (1) COPD exacerbation Current Visit: Yes Status: Acute (2) Acute respiratory failure with hypoxia Current Visit: Yes Status: Acute (3) Liver cirrhosis Current Visit: Yes Status: Acute (4) Tobacco use Current Visit: Yes Status: Acute - Plan Continue scheduled bronchodilators. Continue IV steroid and antibiotics. Weaned off oxygen as possible. Smoking cessation advised. Blood pressure readings are elevated. Monitor and start antihypertensives if high blood pressure persists.
[2020-10-22] MEDS: METHYLPREDNISOLONE 40 MG INJ IV SCH ×2 (00:21→08:58)
[2020-10-22] MEDS: IPRATROPIUM BROM 0.5MG/2.5ML NEB SCH ×2 (02:15→07:41)
[2020-10-22] MEDS: ENOXAPARIN 40 MG/0.4 ML SQ SCH (08:53)
[2020-10-22] MEDS: AZITHROMYCIN IV 500 MG in NA CHLORIDE 0.9% 250 ML IVPB SCH (08:57)
[2020-10-22] MEDS: BENZONATATE 100 MG CAP PO PRN (08:58)
[2020-10-22] MEDS: DULERA 100/5 (MOMETASONE/FORMOTEROL) INHALER IH SCH (08:58)
[2020-10-22 09:30] VITALS: O2SAT 91
--- NOTE | 2020-10-22 12:49 | P.CNS ---
Date of Consult: 10/22/20 Reason for Consult: COPD exacerbation Chief Complaint: COPD Exacerbation History of Present Illness: Patient is 60 years of age with a history of COPD cirrhosis of the liver 3 of hepatitis CAD presented to the emergency room with worsening dyspnea he is compliant with his inhaler ran out of his inhalers a few days ago he is feeling better now patient follows up at the [facility] Allergies No Known Drug Allergies Allergy (Verified 10/21/20 09:13) Unknown Home Medications: Albuterol Sulfate [Albuterol Sulfate 0.083% Neb Soln] 1 inh IH Q8H 10/20/20 Carvedilol [Coreg] 1 tab PO BID 10/20/20 Fluticasone [Flovent Hfa 110*] 1 puff IH BID 10/20/20 Furosemide 20 mg PO BID 10/20/20 Gabapentin 1 tab PO TID PRN 10/20/20 - Past Medical/Surgical History Diabetic: No -: COPD -: Hernia repair - Family History Sister Medical History: Other (see notes) (Lupus) Brother Medical History: Other (see notes) (Lupus) - Social History Smoking Status: Current some day smoker Place of Residence: Home Review of Systems General: Weakness Respiratory: Cough, Shortness of Breath Physical Examination Temp Pulse Resp BP Pulse Ox 97.6 F 103 H 24 H 153/90 H 90 L 10/22/20 08:00 10/22/20 08:00 10/22/20 08:00 10/22/20 08:00 10/22/20 08:00 General: Alert, In no apparent distress, Oriented x3 Respiratory: Expiratory wheezes Cardiovascular: No edema, Regular rate/rhythm - Problems (1) COPD exacerbation Current Visit: Yes Status: Acute Plan: Patient is 60 years of age admitted with COPD exacerbation he has a history of COPD, heavy smoker labs chemistries all reviewed chest x-ray shows COPD changes patient's oxygenation is satisfactory can discharge home on prednisone 20 twice daily for 10 days patient to resume his Advair follow-up with me in 2 weeks
--- NOTE | 2020-10-22 12:51 | P.DS ---
Admission Date: 10/20/20 Discharge Date: 10/22/20 Disposition: ROUTINE DISCHARGE Discharge Condition: FAIR Reason for Admission: COPD Exacerbation - Problems (1) COPD exacerbation Status: Acute (2) Acute respiratory failure with hypoxia Status: Acute (3) Liver cirrhosis Status: Acute (4) Tobacco use Status: Acute Brief History of Present Illness: 60-year-old gentleman with a history of COPD presented to the emergency department with a complaint of shortness of breath, nonproductive cough and wheezing. Patient stated his respiratory symptoms did not respond to his Advair. He was given multiple nebulizer treatments and IV steroids with partially improved in the ED. Chest x-ray demonstrated emphysematous changes, no infiltrate. He was admitted for further management. Hospital Course: Patient admitted to the medical floor and treated for COPD exacerbation with IV steroid, Zithromax, and scheduled bronchodilators. He was initially requiring 2 L of oxygen for his oxygen saturation to stay above 90%. Patient clinically improved within a couple of days of hospitalization. Today patient has been tolerating room air both at rest and with exertion good oxygen saturation. He feels he has improved to baseline. He was seen in consultation by pulmonary-Dr. Douglass. He is deemed clinically stable for discharge today. He is prescribed nebulizer treatment, oral prednisone therapy to continue treatment for COPD exacerbation. Vital Signs/Physical Exam: Temp Pulse Resp BP Pulse Ox 97.6 F 103 H 24 H 153/90 H 90 L 10/22/20 08:00 10/22/20 08:00 10/22/20 08:00 10/22/20 08:00 10/22/20 08:00 General: Alert, In no apparent distress, Oriented x3 HEENT: Mucous membr. moist/pink Neck: Supple, JVD not distended Respiratory: Clear to auscultation bilaterally, Normal air movement Cardiovascular: No edema, Regular rate/rhythm, Normal S1 S2 Gastrointestinal: Soft and benign, Non-distended, No tenderness Musculoskeletal: No clubbing, No swelling Integumentary: No rashes Neurological: Normal strength at 5/5 x4 extr, Cranial nerves 3-12 intact Laboratory Data at Discharge: WBC 4.40 K/uL (4.3-10.9) D 10/21/20 04:00 Hgb 12.2 g/dL (13.6-17.9) L 10/21/20 04:00 Hct 37.2 % (39.6-49.0) L 10/21/20 04:00 Plt Count 83 K/uL (152-406) L 10/21/20 04:00 PT 13.7 SECONDS (9.5-12.5) H 10/20/20 10:20 INR 1.19 10/20/20 10:20 Sodium 139 mmol/L (136-145) 10/21/20 04:00 Potassium 4.4 mmol/L (3.5-5.1) 10/21/20 04:00 BUN 21 mg/dL (7-18) H 10/21/20 04:00 Creatinine 0.63 mg/dL (0.55-1.3) 10/21/20 04:00 Glucose 176 mg/dL (74-106) H 10/21/20 04:00 Magnesium 2.1 mg/dL (1.8-2.4) 10/21/20 04:00 Total Bilirubin 0.5 mg/dL (0.2-1.0) 10/21/20 04:00 AST 30 U/L (15-37) 10/21/20 04:00 ALT 26 U/L (12-78) 10/21/20 04:00 Alkaline Phosphatase 75 U/L (45-117) 10/21/20 04:00 Troponin I < 0.02 ng/mL (0.0-0.045) 10/21/20 00:33 Home Medications: Carvedilol [Coreg] 1 tab PO BID 10/20/20 Fluticasone [Flovent Hfa 110*] 1 puff IH BID 10/20/20 Furosemide 20 mg PO BID 10/20/20 Gabapentin 1 tab PO TID PRN 10/20/20 Albuterol Sulfate [Albuterol Sulfate 0.083% Neb Soln] 1 inh IH Q8H #90 ml 10/22/20 Azithromycin Tab [Zithromax*] 500 mg PO DAILY #6 tab 10/22/20 Benzonatate [Tessalon Perle*] 100 mg PO TID PRN #30 cap 10/22/20 Fluticasone/Salmeterol [Advair 250-50 Diskus] 1 each IH BID #60 blst.w.dev 10/22/20 Ipratropium Neb [Atrovent*] 0.5 mg NEB Q8H #120 amp 10/22/20 predniSONE [Deltasone] 20 mg PO BID 10 Days #20 tab 10/22/20 New Medications: Fluticasone/Salmeterol [Advair 250-50 Diskus] 1 each IH BID #60 blst.w.dev Albuterol Sulfate [Albuterol Sulfate 0.083% Neb Soln] 1 inh IH Q8H #90 ml Ipratropium Neb [Atrovent*] 0.5 mg NEB Q8H #120 amp predniSONE [Deltasone] 20 mg PO BID 10 Days #20 tab Benzonatate [Tessalon Perle*] 100 mg PO TID PRN #30 cap PRN Reason: Cough Azithromycin Tab [Zithromax*] 500 mg PO DAILY #6 tab Diet: AHA Activity: Ad ivan Followup: JAH TYSON [Primary Care Provider] - Richardson Douglass MD [ACTIVE - CAN ADMIT] - 1-2 Weeks Time spent managing pt's care (in minutes): 35
[2020-10-22 13:55] VITALS: BP 156/91; TEMP 98
== END 2020-10-22 14:36 | disposition home or self-care (01) | DRG 190 ==
LOC: ER 10:08 → ERHOLD 13:18 → 2ND 15:41
PROVIDERS: ADMIT Hospitalist; ATTEND Internal Medicine
DX: J44.1 Chronic obstructive pulmonary disease with (acute) exacerbation (principal); J96.01 Acute respiratory failure with hypoxia; F17.210 Nicotine dependence, cigarettes, uncomplicated; K74.60 Unspecified cirrhosis of liver; R07.9 Chest pain, unspecified; Z79.899 Other long term (current) drug therapy; Z79.52 Long term (current) use of systemic steroids; Z20.822 Contact with and (suspected) exposure to COVID-19
CPT/HCPCS: 36415; 71045; 80048; 80053; 80076; 81003; 83735; 83880; 84145; 84484; 85025; 85610; 93005; 94760; 96365; 96367; 96375; 99285; J0456; J1650; J2920; J2930; J3475; J7050; J7606; U0003

== ENCOUNTER 2020-12-27 01:24 | Inpatient (IN) | payer SELFPAY ==
[2020-12-27 02:24] LABS: Absolute Lymphocytes (CBC) 0.9 K/uL (0.7-4.9); Hematocrit 40.7 % (39.6-49.0); MPV 7.6 fL (7.6-11.3); Protime INR 1.13; RBC Red Blood Cell Count 4.51 M/uL (4.33-5.43)
[2020-12-27 02:38] LABS: ALT/SGPT 21 U/L (12-78); AST/SGOT 30 U/L (15-37); Alkaline Phosphatase 75 U/L (45-117); BUN Blood Urea Nitrogen 16 mg/dL (7-18); Bicarbonate 29 mmol/L (21-32); Bilirubin Direct 0.2 mg/dL (0-0.2); Bilirubin Total 0.7 mg/dL (0.2-1.0); Glucose Level 97 mg/dL (74-106); NT PRO-BNP 34 pg/mL (<125); Potassium 4.3 mmol/L (3.5-5.1); Protein, Total 7.3 g/dL (6.4-8.2); Sodium Level 139 mmol/L (136-145); Troponin (Emerg Dept Use Only) < 0.02 ng/mL (0.0-0.045)
[2020-12-27] MEDS ORDERED: ALBUTEROL 2.5 MG/3 ML NEB SOL ONE ×3 (03:12→10:18)
[2020-12-27] MEDS ORDERED: METHYLPREDNISOLONE 125 MG INJ ONE (03:12)
[2020-12-27] MEDS ORDERED: IPRATROPIUM BROM 0.5MG/2.5ML ONE ×2 (03:12→05:16)
--- NOTE | 2020-12-27 04:48 | ER ---
Nurse's Notes [facility] Name: Joseph Quach Age: 60 yrs Sex: Male : 1960 Arrival Date: 12/27/2020 Time: 01:27 Bed 14 Private MD: Diagnosis: COPD Exacerbation Presentation: 12/27 01:41 Chief complaint: Patient states: difficulty breathing X 2 days, worse tonight, has hx iw of COPD, diff breathing worse when he lays down, also having chest pressure and abd pressure , also has productive cough. Coronavirus screen: Ebola Screen: Patient negative for fever greater than or equal to 101.5 degrees Fahrenheit, and additional compatible Ebola Virus Disease symptoms Patient denies exposure to infectious person. Patient denies travel to an Ebola-affected area in the 21 days before illness onset. No symptoms or risks identified at this time. Initial Sepsis Screen: Does the patient meet any 2 criteria? No. Patient's initial sepsis screen is negative. Does the patient have a suspected source of infection? No. Patient's initial sepsis screen is negative. Risk Assessment: Do you want to hurt yourself or someone else? Patient reports no desire to harm self or others. Onset of symptoms was December 25, 2020. 01:41 Method Of Arrival: Wheelchair iw 01:41 Acuity: AISLINN 2 iw Triage Assessment: 02:00 Respiratory: Reports shortness of breath Onset: The symptoms/episode began/occurred pt ea reports a few days ago but worsened , the patient has mild shortness of breath. Historical: - Allergies: 01:44 NKDA; iw - PMHx: 01:44 COPD; iw - PSHx: 01:44 Hernia repair; iw - Immunization history:: Adult Immunizations not up to date, Client reports having NOT received the Covid vaccine. - Social history:: Smoking status: Patient reports the use of cigarette tobacco products, smokes one-half pack cigarettes per day. Screenin: Abuse screen: Denies threats or abuse. Nutritional screening: No deficits noted. ea Tuberculosis screening: No symptoms or risk factors identified. Fall Risk IV access (20 points). Assessment: 02:00 General: Appears uncomfortable, Behavior is cooperative. Pain: Complains of pain in ea chest. Neuro: Level of Consciousness is awake, alert, obeys commands, Oriented to person, place, time. Cardiovascular: Patient's skin is warm and dry. Respiratory: Airway is patent Respiratory effort is even, labored, Respiratory pattern is tachypnea pt placed 2L per nasal cannula. Derm: Skin is pink, warm \T\ dry. 03:30 Reassessment: Patient and/or family updated on plan of care and expected duration. Pain ea level reassessed. Patient is alert, oriented x 3, equal unlabored respirations, skin warm/dry/pink. 04:48 Reassessment: Patient and/or family updated on plan of care and expected duration. Pain ea level reassessed. Patient is alert, oriented x 3, equal unlabored respirations, skin warm/dry/pink. Hospitalist at bedside updating pt on plan of care. 05:57 Reassessment: Patient and/or family updated on plan of care and expected duration. Pain ea level reassessed. Patient is alert, oriented x 3, equal unlabored respirations, skin warm/dry/pink. Awaiting on covid swab. 06:55 Reassessment: Patient and/or family updated on plan of care and expected duration. Pain ea level reassessed. Patient is alert, oriented x 3, equal unlabored respirations, skin warm/dry/pink. Awaiting on room assignment. 07:05 General: Appears in no apparent distress. Behavior is calm, cooperative. Pain: rb3 Complains of pain in chest Quality of pain is described as pressure. Neuro: Level of Consciousness is awake, alert, obeys commands, Oriented to person, place, time. Cardiovascular: Patient's skin is warm and dry. 07:05 Respiratory: Airway is patent Respiratory effort is even, unlabored, Respiratory rb3 pattern is regular, symmetrical, 3 L NC. 08:00 Reassessment: Patient appears in no apparent distress at this time. Patient and/or rb3 family updated on plan of care and expected duration. Pain level reassessed. Patient is alert, oriented x 3, equal unlabored respirations, skin warm/dry/pink. Pt. is sitting in the bedside chair. 09:00 Reassessment: Patient appears in no apparent distress at this time. No changes from rb3 previously documented assessment. 10:00 Respiratory: Airway is patent Respiratory effort is even, labored, Respiratory pattern rb3 is symmetrical. 10:38 Reassessment: Gave report to JEZ Olivares. Information was given from the SBAR. All rb3 questions asked and answered. 10:52 Reassessment: Patient appears in no apparent distress at this time. Patient and/or rb3 family updated on plan of care and expected duration. Pain level reassessed. Patient is alert, oriented x 3, equal unlabored respirations, skin warm/dry/pink. Patient states symptoms have improved. Vital Signs: 01:41 BP 150 / 86; Pulse 106; Resp 30 S; Temp 99.1; Pulse Ox 92% on R/A; Weight 104.33 kg; iw Height 5 ft. 11 in. (180.34 cm); Pain 7/10; 02:33 BP 119 / 85; Pulse 88; Resp 24; Pulse Ox 95% on 2 lpm NC; ea 04:50 BP 127 / 86; Pulse 98; Resp 22; Pulse Ox 97% 2 lpm ; ea 05:58 BP 146 / 91; Pulse 88; Resp 18; Pulse Ox 97% on 3 lpm NC; ea 07:00 BP 147 / 95; Pulse 93; Resp 20; Pulse Ox 93% on 3 lpm NC; rb3 08:00 BP 116 / 79; Pulse 99; Resp 21; Pulse Ox 91% on 3 lpm NC; rb3 09:00 BP 163 / 91; Pulse 93; Resp 22; Pulse Ox 94% on 3 lpm NC; rb3 10:00 BP 159 / 88; Pulse 100; Resp 20; Temp 98.9; Pulse Ox 92% on 3 lpm NC; rb3 10:51 BP 159 / 88; Pulse 90; Resp 20; Pulse Ox 92% on 3 lpm NC; rb3 01:41 Body Mass Index 32.08 (104.33 kg, 180.34 cm) iw ED Course: 01:27 Patient arrived in ED. es 01:43 Triage completed. iw 01:44 Arm band placed on. iw 01:48 Alisha Tucker RN is Primary Nurse. ea 02:12 Fabian Bourne MD is Attending Physician. 7 02:15 Missed attempt(s): 20 gauge in right antecubital area. Bleeding controlled, band aid ea applied, catheter tip intact. 02:20 Inserted saline lock: 20 gauge in right hand, using aseptic technique. ea 02:26 XRAY Chest (1 view) In Process Unspecified. EDMS 02:30 Patient has correct armband on for positive identification. Bed in low position. Call ea light in reach. Side rails up X2. personnel monitor on. Pulse ox on. NIBP on. 04:47 Bright Bowers MD is Hospitalizing Provider. [facility] 04:49 No provider procedures requiring assistance completed. Patient admitted, IV remains in ea place. Administered Medications: 03:10 Drug: SOLU-Medrol (methylPrednisoLONE) 125 mg Route: IVP; Site: right hand; ea 06:55 Follow up: Response: No adverse reaction ea 03:11 Drug: Albuterol - atroVENT (ipratropium) (3:1) (2.5 mg - 0.5 mg) 3 ml Route: Nebulizer; ea 06:55 Follow up: Response: No adverse reaction ea 04:42 Drug: Tessalon Perle (benzonatate) 100 mg Route: PO; ea 06:55 Follow up: Response: No adverse reaction ea 05:01 Drug: AtroVENT (ipratropium) Aerosol 0.5 mg Route: Inhalation; ea 05:02 Drug: Albuterol 2.5 mg Route: Inhalation; ea 05:02 Drug: Magnesium Sulfate 1 grams Route: IVPB; Infused Over: 1 hrs; Site: right hand; ea 06:00 Follow up: Response: No adverse reaction; IV Status: Completed infusion ea 10:20 Drug: Albuterol 2.5 mg Route: Inhalation; rb3 Outcome: 04:47 Decision to Hospitalize by Provider. [facility] 04:49 Instructed on the need for admit. ea 11:12 Admitted to Tele accompanied by tech, via wheelchair, room 403, with oxygen, with rb3 chart, Report called to JEZ Olivares 11:12 Condition: stable 11:14 Patient left the ED. rb3 Signatures: Dispatcher [employer] Candy Ackerman Irene, RN RN iw Antunez, Elena, RN RN ea Holmes, Maurice, MD MD [facility] Maren Oliva RN RN rb3 Corrections: (The following items were deleted from the chart) 01:43 01:41 Chief complaint: Patient states: difficulty breathing X 2 days, worse tonight, iw has hx of COPD, diff breathing worse when he lays down, also having chest pressure and abd pressure iw
--- NOTE | 2020-12-27 04:48 | EDPHYS ---
Physician Documentation [facility] Name: Joseph Quach Age: 60 yrs Sex: Male : 1960 Arrival Date: 12/27/2020 Time: 01:27 Bed 14 Private MD: ED Physician Fabian Bourne HPI: 12/27 04:41 This 60 yrs old Male presents to ER via Wheelchair with complaints of mh7 Breathing Difficulty, Chest Pain, Back Pain. 04:41 The patient has shortness of breath at rest. Onset: The symptoms/episode began/occurred mh7 2 day(s) ago. Duration: The symptoms are continuous, and are steadily getting worse. The patient's shortness of breath is aggravated by coughing, is alleviated by nothing. Associated signs and symptoms: Pertinent positives: chest pain, non-productive cough, Pertinent negatives: diaphoresis, dizziness, fever, hemoptysis, loss of consciousness, nausea, numbness in extremities, visual changes, vomiting. Severity of symptoms: At their worst the symptoms were moderate last night, in the emergency department the symptoms are unchanged. 04:43 The patient has experienced similar episodes in the past, multiple times. mh7 Historical: - Allergies: 01:44 NKDA; iw - PMHx: 01:44 COPD; iw - PSHx: 01:44 Hernia repair; iw - Immunization history:: Adult Immunizations not up to date, Client reports having NOT received the Covid vaccine. - Social history:: Smoking status: Patient reports the use of cigarette tobacco products, smokes one-half pack cigarettes per day. ROS: 04:43 Constitutional: Negative for fever, chills, and weight loss, Eyes: Negative for injury, mh7 pain, redness, and discharge, ENT: Negative for injury, pain, and discharge, Neck: Negative for injury, pain, and swelling, Abdomen/GI: Negative for abdominal pain, nausea, vomiting, diarrhea, and constipation, : Negative for injury, bleeding, discharge, and swelling, MS/Extremity: Negative for injury and deformity, Skin: Negative for injury, rash, and discoloration, Neuro: Negative for headache, weakness, numbness, tingling, and seizure, Psych: Negative for depression, anxiety, suicide ideation, homicidal ideation, and hallucinations, Allergy/Immunology: Negative for hives, rash, and allergies, Endocrine: Negative for neck swelling, polydipsia, polyuria, polyphagia, and marked weight changes, Hematologic/Lymphatic: Negative for swollen nodes, abnormal bleeding, and unusual bruising. Exam: 04:43 Constitutional: This is a well developed, well nourished patient who is awake, alert, mh7 and in no acute distress. Head/Face: Normocephalic, atraumatic. Eyes: Pupils equal round and reactive to light, extra-ocular motions intact. Lids and lashes normal. Conjunctiva and sclera are non-icteric and not injected. Cornea within normal limits. Periorbital areas with no swelling, redness, or edema. Neck: Trachea midline, no thyromegaly or masses palpated, and no cervical lymphadenopathy. Supple, full range of motion without nuchal rigidity, or vertebral point tenderness. No Meningismus. Chest/axilla: Normal chest wall appearance and motion. Nontender with no deformity. No lesions are appreciated. Cardiovascular: Regular rate and rhythm with a normal S1 and S2. No gallops, murmurs, or rubs. Normal PMI, no JVD. No pulse deficits. 04:43 Abdomen/GI: Soft, non-tender, with normal bowel sounds. No distension or tympany. No guarding or rebound. No evidence of tenderness throughout. Back: No spinal tenderness. No costovertebral tenderness. Full range of motion. Skin: Warm, dry with normal turgor. Normal color with no rashes, no lesions, and no evidence of cellulitis. MS/ Extremity: Pulses equal, no cyanosis. Neurovascular intact. Full, normal range of motion. Neuro: Awake and alert, GCS 15, oriented to person, place, time, and situation. Cranial nerves II-XII grossly intact. Motor strength 5/5 in all extremities. Sensory grossly intact. Cerebellar exam normal. Normal gait. Psych: Awake, alert, with orientation to person, place and time. Behavior, mood, and affect are within normal limits. 04:43 Respiratory: the patient does not display signs of respiratory distress, Respirations: prolonged exhalation, that is moderate, Breath sounds: rhonchi, that are mild, are scattered, wheezing: expiratory that is moderate, is heard diffusely, Respiratory rate: 24 Vital Signs: 01:41 BP 150 / 86; Pulse 106; Resp 30 S; Temp 99.1; Pulse Ox 92% on R/A; Weight 104.33 kg; iw Height 5 ft. 11 in. (180.34 cm); Pain 7/10; 02:33 BP 119 / 85; Pulse 88; Resp 24; Pulse Ox 95% on 2 lpm NC; ea 04:50 BP 127 / 86; Pulse 98; Resp 22; Pulse Ox 97% 2 lpm ; ea 05:58 BP 146 / 91; Pulse 88; Resp 18; Pulse Ox 97% on 3 lpm NC; ea 07:00 BP 147 / 95; Pulse 93; Resp 20; Pulse Ox 93% on 3 lpm NC; rb3 08:00 BP 116 / 79; Pulse 99; Resp 21; Pulse Ox 91% on 3 lpm NC; rb3 09:00 BP 163 / 91; Pulse 93; Resp 22; Pulse Ox 94% on 3 lpm NC; rb3 10:00 BP 159 / 88; Pulse 100; Resp 20; Temp 98.9; Pulse Ox 92% on 3 lpm NC; rb3 10:51 BP 159 / 88; Pulse 90; Resp 20; Pulse Ox 92% on 3 lpm NC; rb3 01:41 Body Mass Index 32.08 (104.33 kg, 180.34 cm) iw MDM: 04:43 Differential diagnosis: Anemia Anxiety Reaction asthma, Bronchitis CHF exacerbation, mh7 Chronic Obstructive Pulmonary Disease Myocardial Infarction pneumonia, Pneumothorax Psychogenic pulmonary edema, reactive airway disease. Data reviewed: vital signs, nurses notes, old medical records, lab test result(s), cardiac enzymes, CBC, electrolytes, EKG, radiologic studies, plain films. Data interpreted: Pulse oximetry: on 3L(s) per nasal canula, is 95 %. Interpretation: acceptable. Counseling: I had a detailed discussion with the patient and/or guardian regarding: the historical points, exam findings, and any diagnostic results supporting the discharge/admit diagnosis, lab results, radiology results, the need for further work-up and treatment in the hospital. Response to treatment: the patient's symptoms have mildly improved after treatment. 04:47 Patient medically screened. [facility] 12/27 01:51 Order name: Basic Metabolic Panel 12/27 01:51 Order name: CBC with Diff; Complete Time: 02:45 12/27 01:51 Order name: LFT's; Complete Time: 02:46 12/27 01:51 Order name: Magnesium; Complete Time: 02:46 12/27 01:51 Order name: NT PRO-BNP; Complete Time: 02:46 12/27 01:51 Order name: PT-INR; Complete Time: 02:46 12/27 01:51 Order name: Troponin (emerg Dept Use Only); Complete Time: 02:46 12/27 01:51 Order name: XRAY Chest (1 view) 12/27 01:52 Order name: Basic Metabolic Panel; Complete Time: 02:46 [facility] 12/27 04:38 Order name: Arterial Blood Gas [facility] 12/27 05:16 Order name: COVID-19 : Document "Date of Symptom Onset" if Symptomatic. 12/27 05:36 Order name: CORONAVIRUS [facility] 12/27 06:38 Order name: SARS-COV-2 RT PCR [facility] 12/27 01:51 Order name: EKG; Complete Time: 01:52 12/27 01:51 Order name: Cardiac monitoring; Complete Time: 02:36 12/27 01:51 Order name: EKG - Nurse/Tech; Complete Time: 02:36 12/27 01:51 Order name: IV Saline Lock; Complete Time: 02:36 12/27 01:51 Order name: Labs collected and sent; Complete Time: 02:36 12/27 01:51 Order name: O2 Per Protocol; Complete Time: 02:36 12/27 01:51 Order name: O2 Sat Monitoring; Complete Time: 02:36 ea Administered Medications: 03:10 Drug: SOLU-Medrol (methylPrednisoLONE) 125 mg Route: IVP; Site: right hand; ea 06:55 Follow up: Response: No adverse reaction ea 03:11 Drug: Albuterol - atroVENT (ipratropium) (3:1) (2.5 mg - 0.5 mg) 3 ml Route: Nebulizer; ea 06:55 Follow up: Response: No adverse reaction ea 04:42 Drug: Tessalon Perle (benzonatate) 100 mg Route: PO; ea 06:55 Follow up: Response: No adverse reaction ea 05:01 Drug: AtroVENT (ipratropium) Aerosol 0.5 mg Route: Inhalation; ea 05:02 Drug: Albuterol 2.5 mg Route: Inhalation; ea 05:02 Drug: Magnesium Sulfate 1 grams Route: IVPB; Infused Over: 1 hrs; Site: right hand; ea 06:00 Follow up: Response: No adverse reaction; IV Status: Completed infusion ea 10:20 Drug: Albuterol 2.5 mg Route: Inhalation; rb3 Disposition: 12/27/20 04:47 Hospitalization ordered by Bright Bowers for Inpatient Admission. Preliminary diagnosis is COPD Exacerbation. - Bed requested for Telemetry/MedSurg (Inpatient). - Status is Inpatient Admission. rb3 - Condition is Stable. - Problem is an acute exacerbation. - Symptoms have improved. Signatures: Dispatcher [employer] EDMS Aislinn Chance RN RN iw Percy Correia, CUT OFF SAW OPERATOR PIPE BLANKS-C CUT OFF SAW OPERATOR PIPE BLANKS-Cla1 Alisha Tucker RN RN ea Botello, Elizabeth eb Holmes, Maurice, MD MD 7 Maren Oliva RN RN rb3 Corrections: (The following items were deleted from the chart) 10: 04:47 Hospitalization Ordered by Bright Bowers MD for Inpatient Admission. Preliminary eb diagnosis is COPD Exacerbation. Bed requested for Telemetry/MedSurg (Inpatient). Status is Inpatient Admission. Condition is Stable. Problem is an acute exacerbation. Symptoms have improved. 7 11:14 10:21 12/27/2020 04:47 Hospitalization Ordered by Bright Bowers MD for Inpatient rb3 Admission. Preliminary diagnosis is COPD Exacerbation. Bed requested for Telemetry/MedSurg (Inpatient). Status is Inpatient Admission. Condition is Stable. Problem is an acute exacerbation. Symptoms have improved. eb
[2020-12-27] MEDS ORDERED: BENZONATATE 100 MG CAP PO ONE (04:52)
[2020-12-27 05:00] LABS: Blood Gas Oxyhemoglobin 81.3 % (94-97); Blood O2 Saturation 84.5 % (92-98.5)
--- NOTE | 2020-12-27 05:11 | P.HP ---
Certification for Inpatient Patient admitted to: Inpatient With expected LOS: >2 Midnights Patient will require the following post-hospital care: None Practitioner: I am a practitioner with admitting privileges, knowledge of patient current condition, hospital course, and medical plan of care. Services: Services provided to patient in accordance with Admission requirements found in Title 42 Section 412.3 of the Code of Federal Regulations <Percy Correia - Last Filed: 12/27/20 05:12> Patient History Date of Service: 12/27/20 Primary Care Provider: [facility] Reason for admission: COPD exacerbation History of Present Illness: 60-year-old male with history of COPD, tobacco abuse, hypertension presents emergency department for shortness of breath. Patient reports increasing shortness of breath over the course of the last 3-4 days, at home patient using Advair, albuterol to control his COPD reports that he can barely got cider walk without significant symptoms. Patient has not follow up with pulmonology in the past for financial reasons. Patient evaluated in the emergency department, CBC and chemistry unremarkable, ABG and menstruates hypercapnia, hypoxia with PO2 55.2 and pCO2 50. Patient still with significant amounts of expiratory wheezing after multiple rounds of nebulizer treatments and steroids in the emergency department, ED provider wishes to admit for further evaluation and management of COPD exacerbation. 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 - Family History Sister -: Other (see notes) (Lupus) Brother -: Other (see notes) (Lupus) - Social History Smoking Status: Current every day smoker Counseled patient to stop smoking for: less than 10 minutes Smoking therapy provided: No (Patient declined) Alcohol use: No CD- Drugs: No Caffeine use: Yes Place of Residence: Home <Percy Correia - Last Filed: 12/27/20 05:12> Date of Service: 12/27/20 <Bright Bowers - Last Filed: 12/27/20 13:07> Allergies No Known Drug Allergies Allergy (Verified 10/21/20 09:13) Unknown Home Medications: Carvedilol [Coreg] 1 tab PO BID 10/20/20 Fluticasone [Flovent Hfa 110*] 1 puff IH BID 10/20/20 Furosemide 20 mg PO BID 10/20/20 Gabapentin 1 tab PO TID PRN 10/20/20 Albuterol Sulfate [Albuterol Sulfate 0.083% Neb Soln] 1 inh IH Q8H #90 ml 10/22/20 Azithromycin Tab [Zithromax*] 500 mg PO DAILY #6 tab 10/22/20 Benzonatate [Tessalon Perle*] 100 mg PO TID PRN #30 cap 10/22/20 Fluticasone/Salmeterol [Advair 250-50 Diskus] 1 each IH BID #60 blst.w.dev 10/22/20 Ipratropium Neb [Atrovent*] 0.5 mg NEB Q8H #120 amp 10/22/20 predniSONE [Deltasone] 20 mg PO BID 10 Days #20 tab 10/22/20 Review of Systems 10-point ROS is otherwise unremarkable Respiratory: Cough, Shortness of Breath <Percy Correia - Last Filed: 12/27/20 05:12> Physical Examination - Physical Exam General: Alert, In no apparent distress, Oriented x3 HEENT: Atraumatic, PERRLA, Mucous membr. moist/pink Neck: Supple, 2+ carotid pulse no bruit, No LAD Respiratory: Normal air movement, Expiratory wheezes, Other (Mildly increased respiratory effort, significant expiratory wheezing noted on exam.) Cardiovascular: Regular rate/rhythm, Normal S1 S2 Capillary refill: <2 Seconds Gastrointestinal: Normal bowel sounds, No tenderness Musculoskeletal: No tenderness Integumentary: No rashes Neurological: Normal speech, Normal strength at 5/5 x4 extr, Normal tone, Normal affect - Studies Laboratory Data (last 24 hrs) 12/27/20 02:07: PT 13.0 H, INR 1.13 12/27/20 02:07: WBC 4.30, Hgb 13.4 L, Hct 40.7, Plt Count 106 L 12/27/20 02:07: Sodium 139, Potassium 4.3, BUN 16, Creatinine 0.57, Glucose 97, Magnesium 2.0, Total Bilirubin 0.7, AST 30, ALT 21, Alkaline Phosphatase 75 <Percy Correia - Last Filed: 12/27/20 05:12> - Studies Laboratory Data (last 24 hrs) 12/27/20 02:07: PT 13.0 H, INR 1.13 12/27/20 02:07: WBC 4.30, Hgb 13.4 L, Hct 40.7, Plt Count 106 L 12/27/20 02:07: Sodium 139, Potassium 4.3, BUN 16, Creatinine 0.57, Glucose 97, Magnesium 2.0, Total Bilirubin 0.7, AST 30, ALT 21, Alkaline Phosphatase 75 <Bright Bowers - Last Filed: 12/27/20 13:07> Assessment and Plan - Plan Assessment Acute hypercapnic hypoxic respiratory failure secondary to COPD exacerbation Hypertension Thrombocytopenia secondary to cirrhosis of the liver Plan Acute hypercapnic hypoxic respiratory failure secondary to COPD exacerbation: Continue with scheduled nebs, IV steroids, inhalers. Pulmonology consulted. Daily room air saturations. Anticipate clinical improvement next 24-48 hr, patient may need additional resources at discharge as he is before follow up with pulmonology. DVT prophylaxis with Lovenox 40 mg subcutaneous once daily. Patient unsure of his home medications, will need to evaluate. Hypertension: Patient does not know what medications he is on, will need to evaluate and possibly just. Thrombocytopenia secondary to cirrhosis of the liver: Cirrhosis secondary to hepatitis-C. Continue with Lovenox, hold for platelet count less than 90. Otherwise stable. Discharge Plan: Home Plan to discharge in: 48 Hours - Advance Directives Does patient have a Living Will: No Does patient have a Durable POA for Healthcare: No - Code Status/Comfort Care Code Status Assessed: Yes (Full code) Critical Care: No Time Spent Managing Pts Care (In Minutes): 55 <Percy Correia - Last Filed: 12/27/20 05:12> - Plan Patient seen and examined this morning. Plan of care reviewed as noted above. acute on chronic COPD exacerbation. continue steroids, nebs as noted above. confirm /obtain home medications and restart as appropriate. <Bright Bowers - Last Filed: 12/27/20 13:07>
[2020-12-27] MEDS ORDERED: Magnesium Sulfate 2gm IVPB 2 G/50 ML BAG IV ONE (05:16)
--- NOTE | 2020-12-27 08:21 | RAD REPORT ---
EXAM DESCRIPTION: Lennie Single View12/27/2020 2:26 am CLINICAL HISTORY: Chest pain COMPARISON: September 2020 FINDINGS: Right base is hazy. The remainder of the lungs appear clear of acute infiltrate. The heart is probably borderline enlarge d IMPRESSION: Right base is hazy which may indicate pneumonia or atelectasis. This should be followed until it is clear to help exclude a post obstructive process/underlying mass
[2020-12-27] MEDS ORDERED: ACETAMINOPHEN 500 MG TAB PO PRN (10:39)
[2020-12-27] MEDS: ALBUTEROL 2.5 MG/3 ML NEB SOL NEB SCH ×3 (10:39→19:10)
[2020-12-27] MEDS ORDERED: ONDANSETRON 4 MG/2 ML VIAL IV PRN (10:39)
[2020-12-27] MEDS: IPRATROPIUM BROM 0.5MG/2.5ML NEB SCH ×3 (11:00→19:10)
[2020-12-27] MEDS: ENOXAPARIN 40 MG/0.4 ML SQ SCH (12:43)
[2020-12-27] MEDS: METHYLPREDNISOLONE 125 MG INJ IV SCH ×2 (12:43→18:33)
[2020-12-27 13:09] VITALS: BMI 32.1
[2020-12-27 14:36] LABS: Urine Appearance CLEAR (Clear); Urine Bilirubin NEGATIVE (Negative); Urine Blood NEGATIVE (Negative); Urine Color YELLOW (Yellow); Urine Glucose 1+ (Negative); Urine Protein NEGATIVE (Negative); Urine Specific Gravity >=1.030 (1.005-1.030); Urine pH 6.5 (5.0-7.0)
[2020-12-27 14:56] LABS: Urine Microscopic Reflex NO UMIC
[2020-12-27] MEDS: DULERA 100/5 (MOMETASONE/FORMOTEROL) INHALER IH SCH ×2 (15:21→21:51)
[2020-12-27] MEDS ORDERED: GABAPENTIN 100 MG CAP PO PRN (17:08)
[2020-12-27] MEDS ORDERED: IPRATROPIUM BROM 0.5MG/2.5ML NEB PRN (19:04)
[2020-12-27] MEDS ORDERED: ALBUTEROL 2.5 MG/3 ML NEB SOL NEB PRN (19:04)
[2020-12-27] MEDS: SALMETEROL IH SCH (21:00)
[2020-12-27] MEDS: FLUTICASONE IH SCH (21:00)
[2020-12-27] MEDS: carvediloL 3.125 MG TAB PO SCH (21:50)
[2020-12-27] MEDS: BENZONATATE 100 MG CAP PO PRN (21:50)
[2020-12-28] MEDS: METHYLPREDNISOLONE 125 MG INJ IV SCH ×2 (00:09→05:46)
[2020-12-28] MEDS: ALBUTEROL 2.5 MG/3 ML NEB SOL NEB SCH ×4 (01:05→19:42)
[2020-12-28] MEDS: IPRATROPIUM BROM 0.5MG/2.5ML NEB SCH ×4 (01:05→19:42)
[2020-12-28 04:54] LABS: Absolute Lymphocytes (CBC) 0.4 K/uL (0.7-4.9); Basophils % 0.2 % (0-1.3); Hematocrit 37.9 % (39.6-49.0); MPV 7.8 fL (7.6-11.3); RBC Red Blood Cell Count 4.19 M/uL (4.33-5.43)
[2020-12-28 05:13] LABS: ALT/SGPT 19 U/L (12-78); AST/SGOT 21 U/L (15-37); Albumin 2.8 g/dL (3.4-5.0); Alkaline Phosphatase 60 U/L (45-117); BUN Blood Urea Nitrogen 21 mg/dL (7-18); Bicarbonate 30 mmol/L (21-32); Bilirubin Total 0.7 mg/dL (0.2-1.0); Glucose Level 139 mg/dL (74-106); Magnesium 2.3 mg/dL (1.8-2.4); Potassium 4.9 mmol/L (3.5-5.1); Protein, Total 6.6 g/dL (6.4-8.2); Sodium Level 137 mmol/L (136-145)
[2020-12-28 08:07] LABS: Blood Morphology Comment NOT SEEN (NOT SEEN); Platelet Estimate DECR
[2020-12-28] MEDS: carvediloL 3.125 MG TAB PO SCH ×2 (08:09→20:06)
[2020-12-28] MEDS: GUAIFENESIN 600 MG SA TAB PO SCH ×2 (08:09→20:06)
[2020-12-28] MEDS: ENOXAPARIN 40 MG/0.4 ML SQ SCH (08:12)
[2020-12-28] MEDS: DULERA 100/5 (MOMETASONE/FORMOTEROL) INHALER IH SCH ×2 (08:16→20:06)
[2020-12-28] MEDS: SALMETEROL IH SCH ×2 (09:00→20:06)
[2020-12-28] MEDS: FLUTICASONE IH SCH ×2 (09:00→20:06)
--- NOTE | 2020-12-28 12:22 | P.CNS ---
Date of Consult: 12/28/20 Primary Care Provider: Eileen alexandre Chief Complaint: COPD exacerbation History of Present Illness: patient is 60 years of age with a history of COPD continues to smoker admitted with an exacerbation worsening shortness of breath nocturnal sleep disturbance cough congestion significant choking spells at night Allergies No Known Drug Allergies Allergy (Verified 10/21/20 09:13) Unknown Home Medications: Carvedilol [Coreg] 1 tab PO BID 10/20/20 Fluticasone [Flovent Hfa 110*] 1 puff IH BID 10/20/20 Furosemide 20 mg PO DAILY 10/20/20 Gabapentin 1 tab PO TID PRN 10/20/20 Albuterol Sulfate [Albuterol Sulfate 0.083% Neb Soln] 1 inh IH Q8H #90 ml 10/22/20 Benzonatate [Tessalon Perle*] 100 mg PO TID PRN #30 cap 10/22/20 Fluticasone/Salmeterol [Advair 250-50 Diskus] 1 each IH BID #60 blst.w.dev 10/22/20 Ipratropium Neb [Atrovent*] 0.5 mg NEB Q8H #120 amp 10/22/20 predniSONE [Deltasone] 20 mg PO BID 10 Days #20 tab 10/22/20 - Past Medical/Surgical History Diabetic: No -: COPD -: Tobacco abuse -: Hypertension -: 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 - Family History Sister Medical History: Cancer, Other (see notes) Notes: lupus Brother Medical History: Kidney disease, Other (see notes) Notes: lupus Mother Medical History: Other (see notes) Notes: copd - Social History Smoking Status: Current every day smoker Alcohol use: No CD- Drugs: No Caffeine use: Yes Place of Residence: Home Review of Systems 10-point ROS is otherwise unremarkable General: Weakness Respiratory: Cough, Shortness of Breath Physical Examination Temp Pulse Resp BP Pulse Ox 98.0 F 73 20 112/65 94 12/28/20 12:00 12/28/20 12:00 12/28/20 12:00 12/28/20 12:00 12/28/20 12:00 General: Alert, Oriented x3, Moderate distress Respiratory: Expiratory wheezes Cardiovascular: No edema, Regular rate/rhythm, Normal S1 S2 Gastrointestinal: Normal bowel sounds, Soft and benign - Problems (1) COPD exacerbation Current Visit: No Status: Acute Plan: patient is 60 years of age. I suspect he has severe COPD admitted with an exacerbation significant nocturnal was deemed disturbance chest x-ray shows some cardiomegaly and chronic interstitial changes blood gases show hypoxemia with hypercarbia CBC unremarkable BNP is normal oxygenation satisfactory continue w ith bronchodilator and use a dose of steroids patient is still continues to smoke heavily tsh level ordered at Augmentin sputum cultures pending add theophylline
[2020-12-28] MEDS: METHYLPREDNISOLONE 40 MG INJ IV SCH (13:54)
--- NOTE | 2020-12-28 13:55 | P.PN ---
Subjective Date of Service: 12/28/20 Primary Care Provider: Eileen alexandre Chief Complaint: COPD exacerbation Subjective: Improving (feels ~50% better, still SOB, requiring O2, wheezing.) Review of Systems 10-point ROS is otherwise unremarkable Physical Examination - Vital Signs Temperature: 98.0 F Blood Pressure: 112/65 Pulse: 73 Respirations: 20 Pulse Ox (%): 94 Assessment & Plan Physician Review Additional Text: Physical Exam General: alert, NAD Respiratory: shallow respirations, tight, +expiratory wheeze on 3 LNC Cardiovascular: Regular rate/rhythm, Normal S1 S2 Gastrointestinal: soft, nontender, nondistended Musculoskeletal: No tenderness Integumentary: No rashes Neurological: Normal speech, Normal strength at 5/5 x4 extr, Normal affect Problem List Acute hypercapnic hypoxic respiratory failure secondary to acute on chronic COPD exacerbation Hypertension Thrombocytopenia secondary to cirrhosis of the liver -continue steroids, nebs, inhalers. pulm consulted - d-dimer pending -daily RA sats -improving -continue home meds as indicated -patient reports slept better with O2. advised will need sleep study -medical care difficult as patient does not have insurance and [place] for all tests/treatment needed Dispo: anticipate dc home in ~24-48hrs, may need home o2, uninsured Time Spent Managing Pts Care (In Minutes): 35
[2020-12-28] MEDS: THEOPHYLLINE SR 100 MG TAB PO SCH ×2 (13:56→20:06)
[2020-12-28] MEDS ORDERED: METHYLPREDNISOLONE 125 MG INJ IV SCH (14:00)
--- NOTE | 2020-12-28 15:44 | RAD REPORT ---
EXAM DESCRIPTION: CT - Chest For Pe Angio - 12/28/2020 3:12 pm CLINICAL HISTORY: elevated ddimer COPD, smoking history, worsening shortness of breath COMPARISON: Chest Single View dated 12/27/2020; Chest Single View dated 10/20/2020 TECHNIQUE: Dynamically enhanced 3 mm thick images of the chest were obtained during administration o f approximately 150mL Isovue 370 IV contrast. Coronal and oblique MIP reconstruction images were gene rated and reviewed. Exam utilizes a protocol to evaluate the pulmonary arterial tree. All CT scans are performed using dose optimization technique as appropriate and may include automated exposure control or mA/KV adjustment according to patient size. FINDINGS: Pulmonary arterial tree contrast density is suboptimal but felt to be sufficient for evalu ation of any significant degree of pulmonary embolic disease. The main and lobar arteries for each petra ng field are clear of thrombus. The segmental branches also appear to be clear of thrombus. Subsegmen jamel branch assessment is limited due to the density of contrast and component of motion. The aorta as imaged shows no acute or suspicious finding. No pericardial thickening or effusion. No pulmonary hemorrhage, mass or focal infiltrate seen. A few scattered subpleural bulla and bleb not ed. Trace amounts of atelectasis in each posterior gutter. Trace amount of scarring changes present a s well. No pleural effusion or pleural thickening. No mediastinal or hilar suspicious masses. No chest wall masses or abnormal axillary lymphadenopathy. IMPRESSION: No pulmonary emboli confirmed on this study. Subsegmental branch assessment, particularl y in each lung base, limited due to less than optimal contrast density and respiratory motion. Patient can be monitored with a repeat PE CT study performed if there is evidence for progressive sym ptoms. Mild COPD changes are evident. No acute lung parenchymal process seen.
[2020-12-28] MEDS: AMOX/K CLAV 500 MG TAB PO SCH (20:06)
[2020-12-28] MEDS: BENZONATATE 100 MG CAP PO PRN (23:15)
[2020-12-29] MEDS: METHYLPREDNISOLONE 40 MG INJ IV SCH ×2 (00:29→12:20)
[2020-12-29] MEDS: IPRATROPIUM BROM 0.5MG/2.5ML NEB SCH ×4 (01:25→20:00)
[2020-12-29] MEDS: ALBUTEROL 2.5 MG/3 ML NEB SOL NEB SCH ×4 (01:25→20:00)
[2020-12-29 04:07] LABS: Absolute Lymphocytes (CBC) 0.5 K/uL (0.7-4.9); Basophils % 0.1 % (0-1.3); Lymphocytes % 5.9 % (15.3-44.8); MPV 7.7 fL (7.6-11.3); RBC Red Blood Cell Count 4.15 M/uL (4.33-5.43)
[2020-12-29 04:26] LABS: ALT/SGPT 21 U/L (12-78); AST/SGOT 23 U/L (15-37); Alkaline Phosphatase 61 U/L (45-117); BUN Blood Urea Nitrogen 23 mg/dL (7-18); Bicarbonate 31 mmol/L (21-32); Bilirubin Total 0.6 mg/dL (0.2-1.0); Glucose Level 138 mg/dL (74-106); Magnesium 2.4 mg/dL (1.8-2.4); Potassium 4.4 mmol/L (3.5-5.1); Protein, Total 6.9 g/dL (6.4-8.2); Sodium Level 139 mmol/L (136-145)
[2020-12-29] MEDS: BENZONATATE 100 MG CAP PO PRN (08:11)
[2020-12-29] MEDS: DULERA 100/5 (MOMETASONE/FORMOTEROL) INHALER IH SCH ×2 (08:11→21:00)
[2020-12-29] MEDS: GUAIFENESIN 600 MG SA TAB PO SCH ×2 (08:12→21:02)
[2020-12-29] MEDS: THEOPHYLLINE SR 100 MG TAB PO SCH ×2 (08:12→21:02)
[2020-12-29] MEDS: AMOX/K CLAV 500 MG TAB PO SCH ×2 (08:12→21:02)
[2020-12-29] MEDS: carvediloL 3.125 MG TAB PO SCH ×2 (08:12→21:02)
[2020-12-29] MEDS: FLUTICASONE IH SCH ×2 (08:13→21:00)
[2020-12-29] MEDS: SALMETEROL IH SCH ×2 (08:13→21:00)
--- NOTE | 2020-12-29 13:49 | P.PN ---
Subjective Date of Service: 12/29/20 Primary Care Provider: Eileen alexandre Chief Complaint: COPD exacerbation Subjective: Other (had improvement yesterday but feels liek he has hit a sandstill today. Nebs don't help too much, and helps incosnsistetnly pt has his home advair) Review of Systems 10-point ROS is otherwise unremarkable Physical Examination - Vital Signs Temperature: 97.4 F Blood Pressure: 120/68 Pulse: 70 Respirations: 20 Pulse Ox (%): 93 Assessment & Plan Physician Review Additional Text: Physical Exam General: alert, NAD Respiratory: shallow respirations, tight, +expiratory wheeze on 3 LNC Cardiovascular: Regular rate/rhythm, Normal S1 S2 Gastrointestinal: soft, nontender, nondistended Musculoskeletal: No tenderness Integumentary: No rashes Neurological: Normal speech, Normal strength at 5/5 x4 extr, Normal affect Problem List Acute hypercapnic hypoxic respiratory failure secondary to acute on chronic COPD exacerbation Hypertension Thrombocytopenia secondary to cirrhosis of the liver -continue steroids, nebs, inhalers. pulm consulted -d-dimer elevated. CTA - suboptimal views, but reported negative for PE -daily RA sats, check, plan to wean patient off o2, no insurance -continue home meds as indicated -patient reports slept better with O2. advised will need sleep study -medical care difficult as patient does not have insurance and [place] for all t ests/treatment needed Dispo: anticipate dc home in ~24-48hrs, may need home o2, uninsured Time Spent Managing Pts Care (In Minutes): 35
[2020-12-30] MEDS: METHYLPREDNISOLONE 40 MG INJ IV SCH ×2 (00:53→12:05)
[2020-12-30] MEDS: ALBUTEROL 2.5 MG/3 ML NEB SOL NEB SCH ×4 (02:00→21:00)
[2020-12-30] MEDS: IPRATROPIUM BROM 0.5MG/2.5ML NEB SCH ×4 (02:00→21:00)
[2020-12-30] MEDS: AMOX/K CLAV 500 MG TAB PO SCH ×2 (08:08→20:45)
[2020-12-30] MEDS: GUAIFENESIN 600 MG SA TAB PO SCH ×2 (08:08→20:46)
[2020-12-30] MEDS: THEOPHYLLINE SR 100 MG TAB PO SCH ×2 (08:08→20:45)
[2020-12-30] MEDS: BENZONATATE 100 MG CAP PO PRN (08:08)
[2020-12-30] MEDS: carvediloL 3.125 MG TAB PO SCH ×2 (08:08→20:46)
[2020-12-30] MEDS: DULERA 100/5 (MOMETASONE/FORMOTEROL) INHALER IH SCH ×2 (08:09→20:46)
[2020-12-30] MEDS: SALMETEROL IH SCH ×2 (08:10→20:46)
[2020-12-30] MEDS: FLUTICASONE IH SCH ×2 (08:10→20:46)
--- NOTE | 2020-12-30 12:15 | P.PN ---
Subjective Date of Service: 12/30/20 Primary Care Provider: Elieen alexandre Chief Complaint: COPD exacerbation Subjective: Improving (Patient is doing better room-air sats a satisfactory feeling better) Review of Systems General: Weakness Respiratory: Cough, Shortness of Breath Physical Examination - Vital Signs Temperature: 97.6 F Blood Pressure: 135/78 Pulse: 80 Respirations: 20 Pulse Ox (%): 94 - Physical Exam General: Alert, Oriented x3, Mild distress Respiratory: Expiratory wheezes Cardiovascular: No edema, Regular rate/rhythm Assessment & Plan - Problems (Diagnosis) (1) COPD exacerbation Current Visit: No Status: Acute Plan: Patient is doing a little bit better oxygenation borderline chemistries reviewed change to p.o. prednisone plan for discharge patient is self-pay have ordered oxygen vital signs stable continue with Advair and low-dose prednisone at home follow-up with me in 2 week tsh normal
--- NOTE | 2020-12-30 18:55 | P.PN ---
Subjective Date of Service: 12/30/20 Primary Care Provider: [facility] Chief Complaint: COPD exacerbation Patient still with significant wheezing and requiring 2 L oxygen by nasal cannula. He is complaining of shortness of breath. Physical Examination - Vital Signs Temperature: 97.9 F Blood Pressure: 136/76 Pulse: 85 Respirations: 20 Pulse Ox (%): 94 - Physical Exam General: Alert, In no apparent distress, Oriented x3 HEENT: Mucous membr. moist/pink Neck: Supple, JVD not distended Respiratory: Diminished, Expiratory wheezes Cardiovascular: No edema, Regular rate/rhythm, Normal S1 S2 Gastrointestinal: Normal bowel sounds, Soft and benign, Non-distended Musculoskeletal: No swelling, No tenderness Integumentary: No rashes Neurological: Normal strength at 5/5 x4 extr Assessment And Plan Physician Review Additional Text: Problem List Acute hypercapnic hypoxic respiratory failure secondary to acute on chronic COPD exacerbation Hypertension Thrombocytopenia secondary to cirrhosis of the liver -continue steroids, nebs, inhalers. -pulmonary is following -d-dimer elevated. CTA - suboptimal views, but reported negative for PE -daily RA sats, check, plan to wean patient off o2, no insurance. -I suspect patient would require home oxygen given the severity of COPD changes on his chest CT. -continue home meds as indicated Dispo: May need home o2, uninsured
[2020-12-30] MEDS: predniSONE 20 MG TAB PO SCH (20:46)
[2020-12-31] MEDS: IPRATROPIUM BROM 0.5MG/2.5ML NEB SCH ×4 (01:46→20:00)
[2020-12-31] MEDS: ALBUTEROL 2.5 MG/3 ML NEB SOL NEB SCH ×4 (01:46→20:00)
[2020-12-31] MEDS: THEOPHYLLINE SR 100 MG TAB PO SCH ×2 (07:44→21:55)
[2020-12-31] MEDS: predniSONE 20 MG TAB PO SCH ×2 (07:44→21:55)
[2020-12-31] MEDS: GUAIFENESIN 600 MG SA TAB PO SCH ×2 (07:44→21:54)
[2020-12-31] MEDS: AMOX/K CLAV 500 MG TAB PO SCH ×2 (07:44→21:55)
[2020-12-31] MEDS: carvediloL 3.125 MG TAB PO SCH ×2 (07:45→21:54)
[2020-12-31] MEDS: FLUTICASONE IH SCH ×2 (07:49→21:00)
[2020-12-31] MEDS: DULERA 100/5 (MOMETASONE/FORMOTEROL) INHALER IH SCH ×2 (07:49→21:56)
[2020-12-31] MEDS: SALMETEROL IH SCH ×2 (07:49→21:00)
[2020-12-31] MEDS: BENZONATATE 100 MG CAP PO PRN ×2 (07:50→16:48)
--- NOTE | 2020-12-31 20:01 | P.PN ---
Subjective Date of Service: 12/31/20 Primary Care Provider: [facility] Chief Complaint: COPD exacerbation Patient states he feels much better today. He was tolerating room air at rest but this saturated with ambulation and felt short of breath with exertion. Physical Examination - Vital Signs Temperature: 97.9 F Blood Pressure: 134/90 Pulse: 95 Respirations: 20 Pulse Ox (%): 92 - Physical Exam General: Alert, In no apparent distress, Oriented x3 HEENT: Mucous membr. moist/pink Neck: JVD not distended Respiratory: Expiratory wheezes (Mild scattered wheeze) Cardiovascular: No edema, Regular rate/rhythm, Normal S1 S2 Gastrointestinal: Soft and benign, Non-distended, No tenderness Musculoskeletal: No swelling Integumentary: No rashes Neurological: Normal strength at 5/5 x4 extr Assessment And Plan Physician Review Additional Text: Problem List Acute hypercapnic hypoxic respiratory failure secondary to acute on chronic COPD exacerbation Hypertension Thrombocytopenia secondary to cirrhosis of the liver -continue steroids, nebs, inhalers. -pulmonary is following -d-dimer elevated. CTA - suboptimal views, but reported negative for PE -continue treatment and monitor for 1 more day to to see if we can weaned him off oxygen. -continue home meds as indicated
[2021-01-01] MEDS: BENZONATATE 100 MG CAP PO PRN ×3 (00:35→16:02)
[2021-01-01] MEDS: IPRATROPIUM BROM 0.5MG/2.5ML NEB SCH ×4 (01:38→19:40)
[2021-01-01] MEDS: ALBUTEROL 2.5 MG/3 ML NEB SOL NEB SCH ×4 (01:38→19:40)
[2021-01-01] MEDS: carvediloL 3.125 MG TAB PO SCH ×2 (08:27→21:16)
[2021-01-01] MEDS: FLUTICASONE IH SCH ×2 (08:28→21:00)
[2021-01-01] MEDS: DULERA 100/5 (MOMETASONE/FORMOTEROL) INHALER IH SCH ×2 (08:28→21:00)
[2021-01-01] MEDS: THEOPHYLLINE SR 100 MG TAB PO SCH ×2 (08:28→21:16)
[2021-01-01] MEDS: predniSONE 20 MG TAB PO SCH ×2 (08:28→21:16)
[2021-01-01] MEDS: GUAIFENESIN 600 MG SA TAB PO SCH ×2 (08:28→21:16)
[2021-01-01] MEDS: SALMETEROL IH SCH ×2 (08:28→21:00)
[2021-01-01] MEDS: AMOX/K CLAV 500 MG TAB PO SCH ×2 (08:28→21:16)
--- NOTE | 2021-01-01 14:44 | P.DS ---
Admission Date: 12/27/20 Discharge Date: 01/02/21 Primary Care Provider: Eileen alexandre Disposition: ROUTINE DISCHARGE Discharge Condition: FAIR Reason for Admission: COPD exacerbation - Problems (1) Respiratory failure with hypoxia and hypercapnia Status: Acute (2) COPD exacerbation Status: Acute (3) Liver cirrhosis Status: Acute (4) Tobacco use Status: Acute Brief History of Present Illness: 58-year-old gentleman with a history of COPD, current smoker presented to the emergency department with a complaint of progressive shortness of breath, wheezing and coughing of 4 days duration. Patient noted to be hypoxic on room a ir in the ED. Arterial blood gas showed hypoxemia and hypercapnia. CTA thorax demonstrated COPD changes. Patient given bronchodilators, IV steroid and admitted for further management. Hospital Course: Patient admitted to the medical floor and treated for COPD exacerbation with IV steroid, scheduled bronchodilators. He was placed on oral antibiotics. Patient was seen and evaluated by a pulmonary-Dr. Douglass. His respiratory condition improved gradually with treatment. Patient was unable to weaned off oxygen. He was 90% on room air at rest and 86% with ambulation. Patient is needing home oxygen especially with exertion. He has clinically improved and deemed stable for discharge. Home oxygen recommended. Patient stated he has home oxygen. Patient also discharged with short course prednisone therapy and antibiotics. Vital Signs/Physical Exam: Temp Pulse Resp BP Pulse Ox 97.9 F 85 21 H 134/75 94 01/01/21 12:00 01/01/21 12:00 01/01/21 12:00 01/01/21 12:00 01/01/21 12:00 General: Alert, In no apparent distress, Oriented x3 HEENT: Mucous membr. moist/pink Neck: JVD not distended Respiratory: Normal air movement, Expiratory wheezes (Mild scattered wheezes) Cardiovascular: No edema, Regular rate/rhythm, Normal S1 S2, No murmurs Gastrointestinal: Normal bowel sounds, Soft and benign, Non-distended, No tenderness Musculoskeletal: No swelling Integumentary: No rashes Neurological: Normal strength at 5/5 x4 extr Laboratory Data at Discharge: WBC 9.00 K/uL (4.3-10.9) D 12/29/20 03:08 Hgb 12.7 g/dL (13.6-17.9) L 12/29/20 03:08 Hct 38.0 % (39.6-49.0) L 12/29/20 03:08 Plt Count 108 K/uL (152-406) L D 12/29/20 03:08 PT 13.0 SECONDS (9.5-12.5) H 12/27/20 02:07 INR 1.13 12/27/20 02:07 Sodium 139 mmol/L (136-145) 12/29/20 03:08 Potassium 4.4 mmol/L (3.5-5.1) 12/29/20 03:08 BUN 23 mg/dL (7-18) H 12/29/20 03:08 Creatinine 0.63 mg/dL (0.55-1.3) 12/29/20 03:08 Glucose 138 mg/dL (74-106) H 12/29/20 03:08 Magnesium 2.4 mg/dL (1.8-2.4) 12/29/20 03:08 Total Bilirubin 0.6 mg/dL (0.2-1.0) 12/29/20 03:08 AST 23 U/L (15-37) 12/29/20 03:08 ALT 21 U/L (12-78) 12/29/20 03:08 Alkaline Phosphatase 61 U/L (45-117) 12/29/20 03:08 Home Medications: Carvedilol [Coreg] 1 tab PO BID 10/20/20 Fluticasone [Flovent Hfa 110*] 1 puff IH BID 10/20/20 Furosemide 20 mg PO DAILY 10/20/20 Gabapentin 1 tab PO TID PRN 10/20/20 Albuterol Sulfate [Albuterol Sulfate 0.083% Neb Soln] 1 inh IH Q8H #90 ml 10/22/20 Benzonatate [Tessalon Perle*] 100 mg PO TID PRN #30 cap 10/22/20 Fluticasone/Salmeterol [Advair 250-50 Diskus] 1 each IH BID #60 blst.w.dev 10/22/20 Ipratropium Neb [Atrovent*] 0.5 mg NEB Q8H #120 amp 10/22/20 Amox/Clavulanate [Augmentin 500-125 mg Tab*] 500 mg PO BID #10 tab 01/01/21 Theophylline [Juan C-Dur*] 200 mg PO BID #120 tab 01/01/21 predniSONE [Prednisone*] 20 mg PO BID #10 tab 01/01/21 New Medications: Amox/Clavulanate [Augmentin 500-125 mg Tab*] 500 mg PO BID #10 tab predniSONE [Prednisone*] 20 mg PO BID #10 tab Theophylline [Juan C-Dur*] 200 mg PO BID #120 tab Physician Discharge Instructions: PROBLEM: COPD Exacerbation GOAL: Clear understanding of disease process E-scripts sent to [facility] in [place]. INSTRUCTIONS: - Follow up with your primary care provider in 1 week. - Follow up with pulmonology, Dr. Douglass, in 2 weeks. - Return to the ER if your symptoms worsen. - Call the 4th floor if you have any questions regarding your medications or hospital stay. Diet: Heart healthy Activity: As tolerated DME DME: Home oxygen Date Ordered: 12/30/2020 Name of Company: [employer] Patient IMMUNIZATION Influenza Vaccine Indicated: Influenza Vaccine Given: Date Given: Pneumonia Vaccine Indicated: No Pneumonia Vaccine Given: Date Given: Diet: AHA Activity: Ad ivan Followup: Richardson Douglass MD [ACTIVE - CAN ADMIT] - (Follow up in office in 2 weeks. Call to schedule an appointment.) Time spent managing pt's care (in minutes): 36
--- NOTE | 2021-01-01 14:46 | P.PN ---
Subjective Date of Service: 01/01/21 Primary Care Provider: [facility] Chief Complaint: COPD exacerbation Patient doing much better today. He was tolerating room air at rest but desaturate with ambulation. Physical Examination - Vital Signs Temperature: 97.9 F Blood Pressure: 134/75 Pulse: 85 Respirations: 21 Pulse Ox (%): 94 - Physical Exam General: Alert, In no apparent distress, Oriented x3 HEENT: Mucous membr. moist/pink Neck: JVD not distended Respiratory: Normal air movement, Expiratory wheezes (Mild scattered wheezes) Cardiovascular: No edema, Regular rate/rhythm, Normal S1 S2 Gastrointestinal: Soft and benign, Non-distended, No tenderness Musculoskeletal: No swelling Integumentary: No rashes Neurological: Normal strength at 5/5 x4 extr Assessment And Plan - Current Problems (Diagnosis) (1) Respiratory failure with hypoxia and hypercapnia Current Visit: Yes Status: Acute (2) COPD exacerbation Current Visit: No Status: Acute (3) Liver cirrhosis Current Visit: No Status: Acute (4) Tobacco use Current Visit: No Status: Acute Physician Review Additional Text: Problem List Acute hypercapnic hypoxic respiratory failure secondary to acute on chronic COPD exacerbation Hypertension Thrombocytopenia secondary to cirrhosis of the liver -continue steroids, nebs, inhalers. -d-dimer elevated. CTA - suboptimal views, but reported negative for PE -continue home meds as indicated. -unable to weaned off oxygen. -arranged for home oxygen.
[2021-01-02] MEDS: IPRATROPIUM BROM 0.5MG/2.5ML NEB SCH ×2 (02:15→09:08)
[2021-01-02] MEDS: ALBUTEROL 2.5 MG/3 ML NEB SOL NEB SCH ×2 (02:15→09:08)
[2021-01-02] MEDS: THEOPHYLLINE SR 100 MG TAB PO SCH (07:31)
[2021-01-02] MEDS: carvediloL 3.125 MG TAB PO SCH (07:31)
[2021-01-02] MEDS: GUAIFENESIN 600 MG SA TAB PO SCH (07:31)
[2021-01-02] MEDS: SALMETEROL IH SCH (07:32)
[2021-01-02] MEDS: AMOX/K CLAV 500 MG TAB PO SCH (07:32)
[2021-01-02] MEDS: DULERA 100/5 (MOMETASONE/FORMOTEROL) INHALER IH SCH (07:32)
[2021-01-02] MEDS: predniSONE 20 MG TAB PO SCH (07:32)
[2021-01-02] MEDS: BENZONATATE 100 MG CAP PO PRN (07:32)
[2021-01-02] MEDS: FLUTICASONE IH SCH (07:32)
[2021-01-02 09:41] VITALS: O2SAT 96
[2021-01-02 12:51] VITALS: BP 136/80; TEMP 97.8
== END 2021-01-02 13:05 | disposition home or self-care (01) | DRG 190 ==
LOC: ER 01:24 → ERHOLD 04:48 → 4TH 10:53
PROVIDERS: ADMIT Hospitalist; ATTEND Internal Medicine
DX: J44.1 Chronic obstructive pulmonary disease with (acute) exacerbation (principal); J96.02 Acute respiratory failure with hypercapnia; J96.01 Acute respiratory failure with hypoxia; I10 Essential (primary) hypertension; D69.6 Thrombocytopenia, unspecified; K74.60 Unspecified cirrhosis of liver; B19.20 Unspecified viral hepatitis C without hepatic coma; Z20.822 Contact with and (suspected) exposure to COVID-19; F17.210 Nicotine dependence, cigarettes, uncomplicated
CPT/HCPCS: 36415; 71045; 71275; 80048; 80053; 80076; 81003; 82805; 83605; 83735; 83880; 84443; 84484; 85025; 85379; 85610; 87070; 87205; 94760; 96365; 96375; 99285; J1650; J2920; J2930; J3475; J7512; J7606; Q9967; U0003

== ENCOUNTER 2021-05-14 17:09 | Inpatient (IN) | payer SELFPAY ==
--- NOTE | 2021-05-14 18:29 | RAD REPORT ---
EXAM DESCRIPTION: RAD - Chest Single View - 05/14/2021 6:03 pm CLINICAL HISTORY: Cough;SOB Chest pain. COMPARISON: Chest Single View dated 12/27/2020; Chest Single View dated 10/20/2020; Chest Single View dated 02/22/2018 FINDINGS: Portable technique limits examination quality. Mild interstitial prominence is seen bilaterally likely representing a viral infection or bronchitis. The heart is upper limit of normal in size. No displaced fractures.
[2021-05-14 18:58] LABS: Absolute Lymphocytes (CBC) 0.9 K/uL (0.7-4.9); Basophils % 0.8 % (0-1.3); Hematocrit 42.9 % (39.6-49.0); Lymphocytes % 21.8 % (15.3-44.8); MPV 7.3 fL (7.6-11.3); RBC Red Blood Cell Count 4.72 M/uL (4.33-5.43)
[2021-05-14 18:59] LABS: Protime INR 1.26
[2021-05-14 19:11] LABS: ALT/SGPT 38 U/L (12-78); AST/SGOT 44 U/L (15-37); Albumin 3.3 g/dL (3.4-5.0); Alkaline Phosphatase 72 U/L (45-117); BUN Blood Urea Nitrogen 14 mg/dL (7-18); Bicarbonate 27 mmol/L (21-32); Bilirubin Direct 0.3 mg/dL (0-0.2); Bilirubin Total 0.9 mg/dL (0.2-1.0); Glucose Level 90 mg/dL (74-106); Magnesium 1.9 mg/dL (1.8-2.4); NT PRO-BNP 24 pg/mL (<125); Potassium 4.3 mmol/L (3.5-5.1); Protein, Total 7.7 g/dL (6.4-8.2); Sodium Level 139 mmol/L (136-145); Troponin (Emerg Dept Use Only) < 0.02 ng/mL (0.0-0.045)
[2021-05-14 19:37] LABS: Blood Morphology Comment NOT SEEN (NOT SEEN); Platelet Estimate DECR; White Blood Cell Scan OK (OK)
[2021-05-14] MEDS ORDERED: METHYLPREDNISOLONE 125 MG INJ ONE (20:53)
[2021-05-14 21:53] LABS: Arterial Blood Carboxyhemoglob 1.7 % (0-1.5); Blood Gas Oxyhemoglobin 89.8 % (94-97); Blood O2 Saturation 92.2 % (92-98.5)
--- NOTE | 2021-05-14 21:59 | ER ---
Nurse's Notes [facility] Name: Joseph Quach Age: 61 yrs Sex: Male : 1960 Arrival Date: 05/14/2021 Time: 17:11 Bed 15 Private MD: Diagnosis: Influenza due to other identified influenza virus with pneumonia;COPD/ Chronic obstructive pulmonary disease with acute lower respiratory infection Presentation: 05/14 17:22 Chief complaint: Patient states: he has felt short of breath and has had body aches for ap3 a few days (Since Sunday May 09, 2021). Patient states he has had a cough for about a week as well. Denies fever. Coronavirus screen: Client presents with at least one sign or symptom that may indicate coronavirus-19. Standard/surgical mask placed on the client. Ebola Screen: No symptoms or risks identified at this time. Initial Sepsis Screen: Does the patient meet any 2 criteria? RR > 20 per min. HR > 90 bpm. Yes Does the patient have a suspected source of infection? No. Patient's initial sepsis screen is negative. Risk Assessment: Do you want to hurt yourself or someone else? Patient reports no desire to harm self or others. Onset of symptoms was May 09, 2021. 17:22 Method Of Arrival: Ambulatory ap3 17:22 Acuity: AISLINN 3 ap3 Triage Assessment: 17:25 General: Appears distressed, Behavior is cooperative. Pain: Complains of pain in ap3 generalized body aches, and chest aches with coughing Aggravated by coughing. Neuro: Level of Consciousness is awake, alert, obeys commands, Oriented to person, place, time, situation, Moves all extremities. Gait is steady, Speech is normal. Cardiovascular: Patient's skin is warm and dry. Respiratory: Reports shortness of breath Airway is patent Respiratory effort is even, labored, Respiratory pattern is tachypnea Onset: The symptoms/episode began/occurred gradually, the patient has moderate shortness of breath. Historical: - Allergies: 17:24 NKDA; ap3 - Home Meds: 17:24 Albuterol Nebulizer as needed [Active]; ap3 - PMHx: 17:24 COPD; ap3 17:24 Oxygen as he needs it; ap3 - Immunization history:: Client reports having NOT received the Covid vaccine. - Social history:: Smoking status: Patient/guardian denies using tobacco, Stopped _ months ago 5. Screenin:26 Abuse screen: Denies threats or abuse. Nutritional screening: No deficits noted. ap3 Tuberculosis screening: No symptoms or risk factors identified. 19:10 Fall Risk None identified. oh Assessment: 19:08 General: Reports fever for productive cough, sore throat, hx of copd, pt placed on 2l oh nc. Respiratory: Reports shortness of breath cough that is productive, yellow sputum. Vital Signs: 17:22 BP 145 / 77; Pulse 114; Resp 26; Temp 99.6(TE); Pulse Ox 93% on R/A; Weight 104.33 kg; ap3 Height 6 ft. 0 in. (182.88 cm); 23:10 BP 135 / 67; Pulse 95; Resp 20; Temp 98.8; Pulse Ox 98% on 2 lpm NC; mr2 17:22 Body Mass Index 31.19 (104.33 kg, 182.88 cm) ap3 ED Course: 17:11 Patient arrived in ED. rg4 17:24 Triage completed. ap3 17:26 Arm band placed on left wrist. ap3 17:28 Sohail Jensen PA is PHCP. cp 17:28 Sohail Campbell MD is Attending Physician. cp 17:43 Oscar Flores, JEZ is Primary Nurse. oh 18:02 XRAY Chest (1 view) In Process Unspecified. EDMS 19:08 Basic Metabolic Panel Sent. oh 19:08 CBC with Diff Sent. oh 19:08 LFT's Sent. oh 19:08 Magnesium Sent. oh 19:08 NT PRO-BNP Sent. oh 19:08 PT-INR Sent. oh 19:08 Troponin (emerg Dept Use Only) Sent. oh 19:08 Inserted saline lock: 22 gauge in left wrist, using aseptic technique. Blood collected. oh 19:10 Bed in low position. Call light in reach. oh 21:58 Bright Bowers MD is Hospitalizing Provider. cp Administered Medications: 21:00 Drug: SOLU-Medrol (methylPrednisoLONE) 125 mg Route: IVP; Site: right antecubital; mr2 21:00 Drug: Xopenex (levalbuterol) (3) 1.25 mg Route: Inhalation; mr2 22:00 Drug: Tamiflu (oseltamivir) 75 mg Route: PO; mr2 22:30 Drug: Zithromax (azithromycin) 500 mg Route: PO; mr2 22:30 Drug: Magnesium Sulfate 2 grams Route: IVPB; Infused Over: 1 hrs; Site: left mr2 antecubital; 22:30 Drug: Xopenex (levalbuterol) 1.25 mg Route: Inhalation; mr2 Outcome: 21:59 Decision to Hospitalize by Provider. nasima 05/15 00:55 Patient left the ED. em Signatures: Dispatcher [employer] Cabrera Bishop, RN RN em Sohail Jensen PA PA cp Garcia, Rubi rg4 Mary Lou Rose RN RN ap3 Roberto Lenz RN RN mr2 Oscar Flores RN RN oh
--- NOTE | 2021-05-14 21:59 | EDPHYS ---
Physician Documentation [facility] Name: Joseph Quach Age: 61 yrs Sex: Male : 1960 Arrival Date: 05/14/2021 Time: 17:11 Bed 15 Private MD: ED Physician Sohail Campbell HPI: 05/14 17:50 This 61 yrs old Male presents to ER via Ambulatory with complaints of cp Breathing Difficulty. 17:50 The patient has shortness of breath at rest. Onset: The symptoms/episode began/occurred cp 3 day(s) ago. Duration: The symptoms are continuous, and are steadily getting worse. Associated signs and symptoms: Pertinent positives: chest pain, productive cough, fever, Pertinent negatives: diaphoresis, vomiting. Severity of symptoms: in the emergency department the symptoms are unchanged despite home interventions. Patient reports cough times 1 week. Historical: - Allergies: 17:24 NKDA; ap3 - Home Meds: 17:24 Albuterol Nebulizer as needed [Active]; ap3 - PMHx: 17:24 COPD; ap3 17:24 Oxygen as he needs it; ap3 - Immunization history:: Client reports having NOT received the Covid vaccine. - Social history:: Smoking status: Patient/guardian denies using tobacco, Stopped _ months ago 5. ROS: 17:55 Constitutional: Positive for body aches, Negative for fever, poor PO intake. cp 17:55 Eyes: Negative for injury, pain, redness, and discharge. cp 17:55 ENT: Positive for sore throat, Negative for drainage from ear(s), ear pain, difficulty swallowing, difficulty handling secretions. 17:55 Cardiovascular: Positive for chest pain, Negative for edema, palpitations. 17:55 Respiratory: Positive for cough, shortness of breath, at rest. wheezing. 17:55 Abdomen/GI: Negative for abdominal pain, vomiting, diarrhea, constipation. 17:55 Neuro: Negative for altered mental status, headache, syncope, weakness. 17:55 All other systems are negative. Exam: 18:00 Constitutional: The patient appears in no acute distress, alert, awake, cp non-diaphoretic, non-toxic, well developed, well nourished, uncomfortable. 18:00 Head/Face: Normocephalic, atraumatic. cp 18:00 Eyes: Periorbital structures: appear normal, Conjunctiva: normal, no exudate, no injection, Sclera: no appreciated abnormality, Lids and lashes: appear normal, bilaterally. 18:00 ENT: External ear(s): are unremarkable, Ear canal(s): are normal, clear, TM's: dullness, bilaterally, Nose: is normal, Mouth: Lips: moist, Oral mucosa: moist, Posterior pharynx: Airway: no evidence of obstruction, patent, Tonsils: no enlargement, no exudate, erythema, that is mild, exudate, is not appreciated. 18:00 Neck: ROM/movement: is normal, is supple, without pain, no range of motions limitations, no meningismus. 18:00 Chest/axilla: Inspection: normal, Palpation: is normal, no crepitus, no tenderness. 18:00 Cardiovascular: Rate: tachycardic, Rhythm: regular, Edema: is not appreciated, JVD: is not appreciated. 18:00 Respiratory: mild respiratory distress is noted, Respirations: labored breathing, that is mild, shallow respirations, that is mild, Breath sounds: decreased breath sounds, that are mild, throughout, stridor, is not appreciated, wheezing: that is mild, is heard diffusely. 18:00 Abdomen/GI: Inspection: abdomen appears normal, Bowel sounds: active, all quadrants, Palpation: abdomen is soft and non-tender, in all quadrants. 18:00 Back: pain, is absent, ROM is normal. 18:00 Skin: cellulitis, is not appreciated, no rash present. 18:00 Neuro: Orientation: to person, place \T\ time. Mentation: is normal, Motor: moves all fours, Sensation: is normal. 19:20 ECG was reviewed by the Attending Physician. cp Vital Signs: 17:22 BP 145 / 77; Pulse 114; Resp 26; Temp 99.6(TE); Pulse Ox 93% on R/A; Weight 104.33 kg; ap3 Height 6 ft. 0 in. (182.88 cm); 23:10 BP 135 / 67; Pulse 95; Resp 20; Temp 98.8; Pulse Ox 98% on 2 lpm NC; mr2 17:22 Body Mass Index 31.19 (104.33 kg, 182.88 cm) ap3 MDM: 17:28 Patient medically screened. angelo 18:00 Differential diagnosis: asthma, Bronchitis CHF exacerbation, Chronic Obstructive cp Pulmonary Disease pneumonia, pulmonary edema, Pulmonary Embolism Sepsis Unstable Angina. 21:55 Physician consultation: Percy Correia was contacted at 21:55, regarding admission, to the telemetry unit. patient's condition. 22:00 Data reviewed: vital signs, nurses notes, lab test result(s), EKG, radiologic studies, cp plain films. 22:00 Test interpretation: by ED physician or midlevel provider: ECG, plain radiologic cp studies. 05/14 17:48 Order name: Basic Metabolic Panel 05/14 17:48 Order name: CBC with Diff 05/14 17:48 Order name: LFT's 05/14 17:48 Order name: Magnesium 05/14 17:48 Order name: NT PRO-BNP 05/14 17:48 Order name: PT-INR 05/14 17:48 Order name: Troponin (emerg Dept Use Only) 05/14 17:48 Order name: Strep; Complete Time: 21:27 05/14 17:48 Order name: Influenza Screen (a \T\ B); Complete Time: 21:27 05/14 21:27 Interpretation: Normal except: FLUB FLU B ----- POSITIVE for FLU B protein antigen. 05/14 17:49 Order name: Basic Metabolic Panel; Complete Time: 19:48 EDMS 05/14 19:48 Interpretation: Normal except: CL 108. 05/14 17:49 Order name: CBC with Automated Diff; Complete Time: 19:48 EDMS 05/14 19:48 Interpretation: Normal except: WBC 4.20; PLT 97; MPV 7.3; EOSINOPHIL % 4.9. 05/14 17:49 Order name: Liver (Hepatic) Function; Complete Time: 19:48 EDMS 05/14 19:49 Interpretation: Normal except: AST 44; BILID 0.3; ALB 3.3; GLOB 4.4; A/G 0.8. 05/14 17:49 Order name: Magnesium; Complete Time: 19:48 EDMS 05/14 19:48 Interpretation: MG 1.9; Reviewed. 05/14 17:48 Order name: XRAY Chest (1 view); Complete Time: 18:30 05/14 18:30 Interpretation: Report reviewed. cp 05/14 17:48 Order name: EKG; Complete Time: 17:49 cp 05/14 17:48 Order name: Cardiac monitoring; Complete Time: 18:50 cp 05/14 17:49 Order name: NT PRO-BNP; Complete Time: 19:48 EDMS 05/14 17:49 Order name: Protime (+INR); Complete Time: 19:48 EDMS 05/14 17:49 Order name: Troponin (Emerg Dept Use Only); Complete Time: 19:48 EDMS 05/14 19:37 Order name: CBC Smear Scan; Complete Time: 19:48 EDMS 05/14 20:01 Order name: SARS-COV-2 RT PCR; Complete Time: 21:27 EDMS 05/14 20:59 Order name: Throat Culture EDMS 05/14 21:35 Order name: ABG; Complete Time: 22:05 cp 05/14 17:48 Order name: EKG - Nurse/Tech; Complete Time: 19:08 cp 05/14 17:48 Order name: IV Saline Lock; Complete Time: 18:50 cp 05/14 17:48 Order name: Labs collected and sent; Complete Time: 18:50 cp 05/14 17:48 Order name: O2 Per Protocol; Complete Time: 18:50 cp 05/14 17:48 Order name: O2 Sat Monitoring; Complete Time: 18:50 cp EC:20 Rate is 90 beats/min. Rhythm is regular. AL interval is normal. QRS interval is normal. cp QT interval is normal. T waves are Inverted in lead aVR. Interpreted by me. Reviewed by me. Administered Medications: 21:00 Drug: SOLU-Medrol (methylPrednisoLONE) 125 mg Route: IVP; Site: right antecubital; mr2 21:00 Drug: Xopenex (levalbuterol) (3) 1.25 mg Route: Inhalation; mr2 22:00 Drug: Tamiflu (oseltamivir) 75 mg Route: PO; mr2 22:30 Drug: Zithromax (azithromycin) 500 mg Route: PO; mr2 22:30 Drug: Magnesium Sulfate 2 grams Route: IVPB; Infused Over: 1 hrs; Site: left mr2 antecubital; 22:30 Drug: Xopenex (levalbuterol) 1.25 mg Route: Inhalation; mr2 Disposition: 05/15 13:03 Co-signature as Attending Physician, Sohail Campbell MD I agree with the assessment and angelo plan of care. Disposition Summary: 05/14/21 21:59 Hospitalization Ordered Hospitalization Status: Inpatient Admission cp Provider: Bright Bowers cp Location: Telemetry/MedSurg (Inpatient) cp Condition: Stable cp Problem: new cp Symptoms: have improved cp Bed/Room Type: Standard cp Room Assignment: 204(05/14/21 22:41) cg Diagnosis - Influenza due to other identified influenza virus with pneumonia cp - COPD/ Chronic obstructive pulmonary disease with acute lower respiratory infection cp Forms: - Medication Reconciliation Form cp - SBAR form cp Signatures: Dispatcher [employer] EDWV Sohail Campbell MD MD cha Attema, Lee, GENERAL REPAIRER-C GENERAL REPAIRER-Cla1 Sohail Jensen PA PA cp Elizabeth Hendrickson, RN RN cg Mary Lou Rose RN RN ap3 Roberto Lenz RN RN mr2 Corrections: (The following items were deleted from the chart) 05/14 20:01 17:49 CORONAVIRUS+MR.LAB.BRZ ordered. [facility] EDWV 22:41 21:59 cp cg
--- NOTE | 2021-05-14 22:15 | P.HP ---
Certification for Inpatient Patient admitted to: Inpatient With expected LOS: >2 Midnights Patient will require the following post-hospital care: None Practitioner: I am a practitioner with admitting privileges, knowledge of patient current condition, hospital course, and medical plan of care. Services: Services provided to patient in accordance with Admission requirements found in Title 42 Section 412.3 of the Code of Federal Regulations Patient History Date of Service: 05/14/21 Primary Care Provider: Eileen alexandre Reason for admission: COPD exacerbation, influenza pneumonia History of Present Illness: 61-year-old male with history of COPD on home oxygen as needed presents the emergency department for shortness of breath, myalgias. Patient reports traveling to [place] a few days ago with symptoms starting ever since he got back. Patient tested positive for influenza in the emergency department was noted to have significant expiratory wheezing after IV steroids, nebulizer treatments. Labs are significant for white blood cell count 4.2 platelet count 97 chest x-ray with viral pneumonia pattern. ED provider wishes to admit for further evaluation and management of COPD exacerbation, viral pneumonia/influenza. Allergies No Known Drug Allergies Allergy (Verified 10/21/20 09:13) Unknown Home Medications: Carvedilol [Coreg] 1 tab PO BID 10/20/20 Fluticasone [Flovent Hfa 110*] 1 puff IH BID 10/20/20 Furosemide 20 mg PO DAILY 10/20/20 Gabapentin 1 tab PO TID PRN 10/20/20 Albuterol Sulfate [Albuterol Sulfate 0.083% Neb Soln] 1 inh IH Q8H #90 ml 10/22/20 Benzonatate [Tessalon Perle*] 100 mg PO TID PRN #30 cap 10/22/20 Fluticasone/Salmeterol [Advair 250-50 Diskus] 1 each IH BID #60 blst.w.dev 10/22/20 Ipratropium Neb [Atrovent*] 0.5 mg NEB Q8H #120 amp 10/22/20 Amox/Clavulanate [Augmentin 500-125 mg Tab*] 500 mg PO BID #10 tab 01/01/21 Theophylline [Juan C-Dur*] 200 mg PO BID #120 tab 01/01/21 predniSONE [Prednisone*] 20 mg PO BID #10 tab 01/01/21 - Past Medical/Surgical History Diabetic: No -: COPD -: Tobacco abuse -: Hypertension -: 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 - Family History Sister -: Cancer, Other (see notes) Notes: lupus Brother -: Kidney disease, Other (see notes) Notes: lupus Mother -: Other (see notes) Notes: copd - Social History Smoking Status: Former smoker Alcohol use: No CD- Drugs: No Caffeine use: Yes Place of Residence: Home Review of Systems 10-point ROS is otherwise unremarkable General: Fever, Chills, Weakness, Malaise Respiratory: Cough, Dry, Shortness of Breath Physical Examination - Physical Exam General: Alert, In no apparent distress, Oriented x3 HEENT: Atraumatic, PERRLA, Mucous membr. moist/pink, EOMI, Sclerae nonicteric Neck: Supple, 2+ carotid pulse no bruit, No LAD, Without JVD or thyroid abnormality Respiratory: Diminished, Expiratory wheezes Cardiovascular: Regular rate/rhythm, Normal S1 S2 Gastrointestinal: Normal bowel sounds, No tenderness Musculoskeletal: No tenderness Integumentary: No rashes Neurological: Normal gait, Normal speech, Normal strength at 5/5 x4 extr, Normal tone, Normal affect Lymphatics: No axilla or inguinal lymphadenopathy - Studies Laboratory Data (last 24 hrs) 05/14/21 18:47: Sodium 139, Potassium 4.3, BUN 14, Creatinine 0.64, Glucose 90, Magnesium 1.9 D, Total Bilirubin 0.9, AST 44 H, ALT 38, Alkaline Phosphatase 72 05/14/21 18:41: PT 14.5 H, INR 1.26 05/14/21 18:41: WBC 4.20 L, Hgb 14.5, Hct 42.9, Plt Count 97 L Microbiology Data (last 24 hrs): 05/14/21 18:41 Throat Group A Streptococcus Rapid Screen - Final 05/14/21 18:41 Nasopharnyx Influenza Type A Antigen Screen - Final 05/14/21 18:41 Nasopharnyx Influenza Type B Antigen Screen - Final Assessment and Plan - Plan Assessment: Acute on chronic hypoxic respiratory failure secondary to COPD with exacerbation complicated with viral pneumoniainfluenza B History of hepatitis C currently with thrombocytopenia Plan: Acute on chronic hypoxic respiratory failure secondary to COPD with exacerbation complicated with viral pneumoniainfluenza B: Continue IV steroids, scheduled nebs, incentive spirometry, ICS, Tamiflu, Zithromax. Pulmonology consulted for additional assistance in management. Anticipate clinical provement over the course next 24 to 48 hours. History of hepatitis C currently with thrombocytopenia: Platelets 98 continue with SCDs for DVT prophylaxis for platelets less than 100. DVT PPX: SCDs given thrombocytopenia Code status: Full Discharge Plan: Home Plan to discharge in: 48 Hours - Advance Directives Does patient have a Living Will: No Does patient have a Durable POA for Healthcare: No - Code Status/Comfort Care Code Status Assessed: Yes (Full code) Critical Care: No Time Spent Managing Pts Care (In Minutes): 55
[2021-05-14] MEDS ORDERED: OSELTAMIVIR 75 MG CAP ONE (22:25)
[2021-05-14] MEDS ORDERED: AZITHROMYCIN 250 MG TAB ONE (22:37)
[2021-05-14] MEDS ORDERED: LEVALBUTEROL 1.25 MG/3 ML NEB ONE (22:37)
[2021-05-14] MEDS ORDERED: Magnesium Sulfate 2gm IVPB 2 G/50 ML BAG IV ONE (22:37)
[2021-05-14] MEDS ORDERED: ACETAMINOPHEN 500 MG TAB PO PRN (22:57)
[2021-05-14] MEDS ORDERED: ONDANSETRON 4 MG/2 ML VIAL IV PRN (22:57)
[2021-05-15] MEDS ORDERED: METHYLPREDNISOLONE 40 MG INJ IV SCH (01:00)
[2021-05-15] MEDS: ALBUTEROL 2.5 MG/3 ML NEB SOL NEB SCH ×4 (02:05→19:30)
[2021-05-15] MEDS: IPRATROPIUM BROM 0.5MG/2.5ML NEB SCH ×4 (02:05→19:30)
[2021-05-15 02:11] LABS: Urine Appearance CLEAR (Clear); Urine Blood NEGATIVE (Negative); Urine Color DK YELLOW (Yellow); Urine Glucose 1+ (Negative); Urine Protein NEGATIVE (Negative); Urine Specific Gravity 1.025 (1.005-1.030); Urine pH 5.5 (5.0-7.0)
[2021-05-15 02:14] LABS: Urine Bilirubin NEGATIVE (Negative); Urine Microscopic Reflex NO UMIC
[2021-05-15] MEDS ORDERED: BENZONATATE 100 MG CAP PO PRN (05:27)
[2021-05-15 05:59] LABS: Absolute Lymphocytes (CBC) 0.3 K/uL (0.7-4.9); Basophils % 0.4 % (0-1.3); Hematocrit 40.2 % (39.6-49.0); Lymphocytes % 15.2 % (15.3-44.8); MPV 7.6 fL (7.6-11.3); RBC Red Blood Cell Count 4.39 M/uL (4.33-5.43)
--- NOTE | 2021-05-15 06:00 | P.PN ---
Date of Service: 05/15/21 Subjective: improving, feels he is breathing better, still with SOB/AUGUST, requiring O2 supplementation cough improved, +generalized aches ROS: 10 point ROS otherwise negative Physical Exam General: AOx3, mild distress HEENT: normal conjunctiva, sclera anicteric Respiratory: Diminished, Expiratory wheezes bilaterally Cardiovascular: Regular rate/rhythm, Normal S1 S2 Gastrointestinal: soft, nontender, nondistended Integumentary: No rashes Problem List Acute on chronic hypoxic respiratory failure secondary to COPD with exacerbation complicated with viral pneumoniainfluenza B History of hepatitis C currently with thrombocytopenia mild neutropenia IV -> PO steroids, continue nebs, IS, home inhalers continue tamiflu pulm consulted improving anticipate neutropenia likely from flu wean O2 as tolerated cough meds PRN Dispo: anticipate dc home in 24-48hrs Time Spent Managing Pts Care (In Minutes): 35
[2021-05-15 06:26] LABS: Bilirubin Total 0.7 mg/dL (0.2-1.0); Protein, Total 7.2 g/dL (6.4-8.2); Thyroid Stimulating Hormone 0.823 uIU/mL (0.360-3.740)
[2021-05-15 07:02] LABS: Blood Morphology Comment NOT SEEN (NOT SEEN); Platelet Estimate DECR
[2021-05-15] MEDS ORDERED: INFLUENZA VACCINE (for 6+ mo) 0.5 ML DOSE IMVAC ONE (08:00)
[2021-05-15] MEDS: OSELTAMIVIR 75 MG CAP PO SCH ×2 (09:20→20:18)
[2021-05-15] MEDS: DULERA 200/5 (MOMETASONE/FORMOTEROL) INHALER IH SCH ×2 (09:20→20:18)
[2021-05-15] MEDS: predniSONE 20 MG TAB PO SCH ×2 (09:20→20:18)
--- NOTE | 2021-05-15 13:10 | P.CNS ---
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 - Family History Sister Medical History: Cancer, Other (see notes) Notes: lupus Brother Medical History: Kidney disease, Other (see notes) Notes: lupus Mother Medical History: Other (see notes) Notes: copd - Social History Smoking Status: Current every day smoker Alcohol use: No CD- Drugs: No Caffeine use: Yes Place of Residence: Home Review of Systems 10-point ROS is otherwise unremarkable Respiratory: Shortness of Breath Physical Examination Temp Pulse Resp BP Pulse Ox 99.2 F 102 H 24 H 128/61 93 05/15/21 12:00 05/15/21 12:00 05/15/21 12:00 05/15/21 12:00 05/15/21 12:00 General: Alert, Oriented x3 Neck: Supple Respiratory: Expiratory wheezes Cardiovascular: No edema, Normal S1 S2 Laboratory Data (last 24 hrs) 05/14/21 18:47: Sodium 139, Potassium 4.3, BUN 14, Creatinine 0.64, Glucose 90, Magnesium 1.9 D, Total Bilirubin 0.9, AST 44 H, ALT 38, Alkaline Phosphatase 72 05/14/21 18:41: PT 14.5 H, INR 1.26 05/14/21 18:41: WBC 4.20 L, Hgb 14.5, Hct 42.9, Plt Count 97 L - Problems (1) COPD exacerbation Current Visit: No Status: Acute Plan: Patient is 61 years of age admitted with COPD exacerbation hypoxic mildly hypercapnic history of severe COPD home oxygen uses Advair chest x-ray shows COPD changes signs stable patient can be discharged home resume Advair on prednisone 10 twice daily for 10 days positive for influenza B labs medication all reviewed peers to be neutropenic for some reason DC Zithromax
[2021-05-15] MEDS ORDERED: AZITHROMYCIN IV 500 MG in NA CHLORIDE 0.9% 250 ML IVPB SCH (21:00)
[2021-05-16 00:40] VITALS: BMI 30.9
[2021-05-16] MEDS: IPRATROPIUM BROM 0.5MG/2.5ML NEB SCH ×2 (03:15→08:00)
[2021-05-16] MEDS: ALBUTEROL 2.5 MG/3 ML NEB SOL NEB SCH ×2 (03:15→08:00)
[2021-05-16 06:13] LABS: Absolute Lymphocytes (CBC) 0.6 K/uL (0.7-4.9); Basophils % 0.1 % (0-1.3); Lymphocytes % 10.1 % (15.3-44.8); MPV 7.3 fL (7.6-11.3); RBC Red Blood Cell Count 4.15 M/uL (4.33-5.43)
[2021-05-16 06:21] LABS: ALT/SGPT 30 U/L (12-78); AST/SGOT 28 U/L (15-37); Albumin 2.8 g/dL (3.4-5.0); Alkaline Phosphatase 55 U/L (45-117); BUN Blood Urea Nitrogen 16 mg/dL (7-18); Bicarbonate 26 mmol/L (21-32); Bilirubin Total 0.5 mg/dL (0.2-1.0); Glucose Level 189 mg/dL (74-106); Potassium 4.8 mmol/L (3.5-5.1); Protein, Total 6.7 g/dL (6.4-8.2); Sodium Level 139 mmol/L (136-145)
[2021-05-16 08:22] VITALS: O2SAT 93
[2021-05-16 08:42] VITALS: BP 119/72; TEMP 98.2
[2021-05-16] MEDS: DULERA 200/5 (MOMETASONE/FORMOTEROL) INHALER IH SCH (09:00)
[2021-05-16] MEDS: OSELTAMIVIR 75 MG CAP PO SCH (10:08)
[2021-05-16] MEDS: predniSONE 20 MG TAB PO SCH (10:08)
--- NOTE | 2021-05-16 11:46 | EKG ---
Test Date: 2021-05-14 Test Time: 19:13:03 [employer] Specialist: FRANCIS MEASUREMENT RESULTS: Intervals: Rate: 90 KS: 138 QRSD: 86 QT: 364 QTc: 445 [place]: P: 79 KS: 138 QRS: 82 T: 72 INTERPRETIVE STATEMENTS: Normal sinus rhythm Normal ECG Compared to ECG 10/20/2020 13:32:04 No significant changes Electronically Signed On 05-16-21 11:44:36 CDT by Manuel Joya
--- NOTE | 2021-05-16 20:03 | P.DS ---
Admission Date: 05/14/21 Discharge Date: 05/16/21 Primary Care Provider: Chesterland bettie Disposition: ROUTINE DISCHARGE Discharge Condition: GOOD Reason for Admission: COPD exacerbation, influenza pneumonia Consultations: Pulmonology - Dr. Douglass Procedures: CXR (05/14): Mild interstitial prominence is seen bilaterally likely representing a viral infection or bronchitis. The heart is upper limit of normal in size. No displaced fractures. Problem List Acute on chronic hypoxic respiratory failure secondary to COPD with exacerbation complicated with viral pneumoniainfluenza B acute on chronic COPD exacerbation History of hepatitis C currently with thrombocytopenia mild neutropenia, resolved Brief History of Present Illness: 61-year-old male with history of COPD on home oxygen as needed presents the emergency department for shortness of breath, myalgias. Patient reports traveling to [place] a few days ago with symptoms starting ever since he got back. Patient tested positive for influenza in the emergency department was noted to have significant expiratory wheezing after IV steroids, nebulizer treatments. Labs are significant for white blood cell count 4.2 platelet count 97 chest x-ray with viral pneumonia pattern. ED provider wishes to admit for further evaluation and management of COPD exacerbation, viral pneumonia/influenza. Hospital Course: Treated with tamiflu and steroids. Had quick improvement of his symptoms. Pulmonology was consulted, and patient was deemed stable to discharge home. He is to complete a course of steroids and tamiflu. Follow up with Dr. Douglass (Pulm) in ~1-2 weeks. Vital Signs/Physical Exam: Physical Exam General: AOx3, NAD HEENT: normal conjunctiva, sclera anicteric Respiratory: Diminished at bases, mild expiratory wheeze bilaterally. nonlabored respirations on 2L NC Cardiovascular: Regular rate/rhythm, Normal S1 S2 Gastrointestinal: soft, nontender, nondistended Integumentary: No rashes Temp Pulse Resp BP Pulse Ox 98.2 F 94 H 22 H 119/72 94 05/16/21 08:00 05/16/21 08:00 05/16/21 08:00 05/16/21 08:00 05/16/21 08:00 Laboratory Data at Discharge: WBC 6.10 K/uL (4.3-10.9) D 05/16/21 05:45 Hgb 12.9 g/dL (13.6-17.9) L 05/16/21 05:45 Hct 38.0 % (39.6-49.0) L 05/16/21 05:45 Plt Count 75 K/uL (152-406) L 05/16/21 05:45 PT 14.5 SECONDS (9.5-12.5) H 05/14/21 18:41 INR 1.26 05/14/21 18:41 Sodium 139 mmol/L (136-145) 05/16/21 05:45 Potassium 4.8 mmol/L (3.5-5.1) 05/16/21 05:45 BUN 16 mg/dL (7-18) 05/16/21 05:45 Creatinine 0.56 mg/dL (0.55-1.3) 05/16/21 05:45 Glucose 189 mg/dL (74-106) H 05/16/21 05:45 Magnesium 1.9 mg/dL (1.8-2.4) D 05/14/21 18:47 Total Bilirubin 0.5 mg/dL (0.2-1.0) 05/16/21 05:45 AST 28 U/L (15-37) 05/16/21 05:45 ALT 30 U/L (12-78) 05/16/21 05:45 Alkaline Phosphatase 55 U/L (45-117) 05/16/21 05:45 Triglycerides 69 mg/dL (<150) 05/15/21 05:39 Cholesterol 141 mg/dL (<200) 05/15/21 05:39 HDL Cholesterol 53 mg/dL (40-60) 05/15/21 05:39 Cholesterol/HDL Ratio 2.66 05/15/21 05:39 Home Medications: Oseltamivir [Tamiflu*] 75 mg PO BID 3 Days #6 cap 05/16/21 predniSONE [Prednisone*] 20 mg PO SEECOM 8 Days #12 tab 05/16/21 New Medications: predniSONE [Prednisone*] 20 mg PO SEECOM 8 Days #12 tab Oseltamivir [Tamiflu*] 75 mg PO BID 3 Days #6 cap Diet: AHA Activity: Ad ivan Followup: Richardson Douglass MD [ACTIVE - CAN ADMIT] - NONE,NONE [Primary Care Provider] - Time spent managing pt's care (in minutes): 45
== END 2021-05-16 12:46 | disposition home or self-care (01) | DRG 193 ==
LOC: ER 17:09 → 2ND 22:51
PROVIDERS: ADMIT Hospitalist; ATTEND Hospitalist
DX: J10.08 Influenza due to other identified influenza virus with other specified pneumonia (principal); J96.21 Acute and chronic respiratory failure with hypoxia; J44.1 Chronic obstructive pulmonary disease with (acute) exacerbation; J12.9 Viral pneumonia, unspecified; J44.0 Chronic obstructive pulmonary disease with (acute) lower respiratory infection; D69.6 Thrombocytopenia, unspecified; F17.200 Nicotine dependence, unspecified, uncomplicated; D70.9 Neutropenia, unspecified; I10 Essential (primary) hypertension; Z79.899 Other long term (current) drug therapy; Z99.81 Dependence on supplemental oxygen; Z79.52 Long term (current) use of systemic steroids; Z20.822 Contact with and (suspected) exposure to COVID-19
CPT/HCPCS: 36415; 71045; 80048; 80053; 80061; 80076; 81003; 82805; 83735; 83880; 84145; 84439; 84443; 84484; 85025; 85610; 87070; 87081; 87205; 87804; 93005; 94010; 94640; 99284; J0456; J2920; J2930; J3475; J7050; J7512; J7606; U0003

== ENCOUNTER 2021-08-23 23:07 | Inpatient (IN) | payer SELFPAY ==
[2021-08-23] MEDS ORDERED: METHYLPREDNISOLONE 125 MG INJ ONE (23:28)
[2021-08-23] MEDS ORDERED: ALBUTEROL 2.5 MG/3 ML NEB SOL ONE (23:28)
[2021-08-23] MEDS ORDERED: IPRATROPIUM BROM 0.5MG/2.5ML ONE (23:29)
[2021-08-24 00:04] LABS: Protime INR 1.21
[2021-08-24 00:06] LABS: Absolute Lymphocytes (CBC) 1.2 K/uL (0.7-4.9); Hematocrit 41.1 % (39.6-49.0); Lymphocytes % 19.8 % (15.3-44.8); MPV 7.5 fL (7.6-11.3)
[2021-08-24 00:17] LABS: ALT/SGPT 25 U/L (12-78); AST/SGOT 32 U/L (15-37); Albumin 2.9 g/dL (3.4-5.0); Alkaline Phosphatase 73 U/L (45-117); BUN Blood Urea Nitrogen 13 mg/dL (7-18); Bicarbonate 28 mmol/L (21-32); Bilirubin Direct 0.3 mg/dL (0-0.2); Bilirubin Total 0.9 mg/dL (0.2-1.0); Glucose Level 107 mg/dL (74-106); Magnesium 1.9 mg/dL (1.8-2.4); NT PRO-BNP 39 pg/mL (<125); Potassium 3.9 mmol/L (3.5-5.1); Protein, Total 7.2 g/dL (6.4-8.2); Sodium Level 139 mmol/L (136-145)
[2021-08-24 01:13] LABS: Blood Morphology Comment NOT SEEN (NOT SEEN); Platelet Estimate DECR; White Blood Cell Scan OK (OK)
[2021-08-24] MEDS ORDERED: HYDROCODONE/CHLORPHEN 5 ML/OSYR ONE (01:18)
--- NOTE | 2021-08-24 01:25 | ER ---
Nurse's Notes [facility] Name: Joseph Quach Age: 61 yrs Sex: Male : 1960 Arrival Date: 08/23/2021 Time: 23:12 Bed 17 Private MD: Diagnosis: COPD/ Chronic obstructive pulmonary disease with (acute) exacerbation Presentation: 08/23 23:13 Chief complaint: Patient states: " I am just miserable breathing, and I have coughing tw5 up nasty yellow stuff. I have COPD and I have been having to wear my oxygen most of the day. I also feel so dry I have drank 2-3 Gallons of water today.". Coronavirus screen: Vaccine status: Patient reports being unvaccinated. Ebola Screen: Patient negative for fever greater than or equal to 101.5 degrees Fahrenheit, and additional compatible Ebola Virus Disease symptoms Patient denies exposure to infectious person. Patient denies travel to an Ebola-affected area in the 21 days before illness onset. Initial Sepsis Screen: Does the patient meet any 2 criteria? RR > 20 per min. HR > 90 bpm. Does the patient have a suspected source of infection? No. Patient's initial sepsis screen is negative. Risk Assessment: Do you want to hurt yourself or someone else? Patient reports no desire to harm self or others. Onset of symptoms is unknown. 23:13 Method Of Arrival: Ambulatory tw5 23:13 Acuity: AISLINN 2 tw5 Triage Assessment: 23:14 General: Appears uncomfortable, Behavior is appropriate for age, anxious. Pain: tw5 Complains of pain in chest Pain currently is 4 out of 10 on a pain scale. Respiratory: Reports shortness of breath at rest Onset: The symptoms/episode began/occurred "When the cold front came in", the patient has moderate shortness of breath. Historical: - Allergies: 23:14 NKDA; tw5 - Home Meds: 23:14 Albuterol Inhl as needed [Active]; Advair Diskus 100-50 mcg/dose Inhl dsdv [Active]; tw5 - PMHx: 23:14 COPD; Oxygen as he needs it; tw5 - PSHx: 23:14 hernia repair -1959; tw5 - Immunization history:: Flu vaccine is not up to date. - Social history:: Smoking status: Reported history of juuling and/or vaping. Screenin:36 Abuse screen: Denies threats or abuse. Nutritional screening: No deficits noted. sv1 Tuberculosis screening: No symptoms or risk factors identified. Fall Risk None identified. Assessment: 23:44 Reassessment: No changes from previously documented assessment. Patient and/or family lg3 updated on plan of care and expected duration. Pain level reassessed. Patient is alert, oriented x 3, equal unlabored respirations, skin warm/dry/pink. General: Appears uncomfortable, Behavior is calm, cooperative. Pain: Denies pain. Neuro: No deficits noted. Level of Consciousness is awake, alert, obeys commands, Oriented to person, place, time, situation. Cardiovascular: No deficits noted. Capillary refill < 3 seconds JVD is absent Patient's skin is warm and dry. Cardiovascular: Rhythm is regular. Respiratory: Airway is patent Trachea midline Respiratory effort is even, labored, Breath sounds with rhonchi bilaterally. GI: No deficits noted. No signs and/or symptoms were reported involving the gastrointestinal system. : No deficits noted. No signs and/or symptoms were reported regarding the genitourinary system. EENT: No deficits noted. No signs and/or symptoms were reported regarding the EENT system. Derm: No deficits noted. No signs and/or symptoms reported regarding the dermatologic system. Skin is intact, is healthy with good turgor. Musculoskeletal: No deficits noted. No signs and/or symptoms reported regarding the musculoskeletal system. Circulation, motion, and sensation intact. Range of motion: intact in all extremities. Vital Signs: 23:13 BP 122 / 80; Pulse 114; Resp 26; Temp 98.2; Pulse Ox 94% on R/A; Weight 104.33 kg; tw5 Height 5 ft. 11 in. (180.34 cm); Pain /10; 23:36 BP 132 / 109; Pulse 100 MON; Resp 25 S; Temp 98.3(O); Pulse Ox 94% on R/A; Weight sv1 104.33 kg; Height 5 ft. 11 in. (180.34 cm); 08/24 01:14 BP 140 / 91; Pulse 93; Resp 15 S; Pulse Ox 94% on 3 lpm NC; lg3 02:20 BP 150 / 94; Pulse 95; Resp 21 S; Pulse Ox 94% on 3 lpm NC; Pain 0/10; lg3 08/23 23:36 Body Mass Index 32.08 (104.33 kg, 180.34 cm) sv1 ED Course: 08/23 23:12 Patient arrived in ED. tw5 23:14 Triage completed. tw5 23:14 Arm band placed on left wrist. tw5 23:16 Andrzej Murillo, NICOLA is PHCP. pm1 23:16 Todd Avila MD is Attending Physician. pm1 23:36 Chidi Alexander, JEZ is Primary Nurse. sv1 23:36 Patient has correct armband on for positive identification. Placed in gown. Bed in low sv1 position. Call light in reach. Side rails up X2. 23:43 COVID-19/FLU A+B Sent. lg3 23:43 Basic Metabolic Panel Sent. lg3 23:43 CBC with Diff Sent. lg3 23:43 LFT's Sent. lg3 23:43 Magnesium Sent. lg3 23:43 NT PRO-BNP Sent. lg3 23:43 PT-INR Sent. lg3 23:43 Troponin HS Sent. lg3 23:43 COVID-19/FLU A+B (Document "Date of Onset" if Symptomatic) Sent. lg3 23:44 Inserted saline lock: 20 gauge in left hand, using aseptic technique. Blood collected. lg3 23:53 XRAY Chest (1 view) In Process Unspecified. EDMS 08/24 01:24 Percy Correia FNP-C is Hospitalizing Provider. pm1 01:38 Hospitalizing Provider role handed off by Percy Correia FNP-C pm1 01:38 Belem Clark MD is Hospitalizing Provider. pm1 01:50 Blood Culture Adult (2) Sent. lg3 03:39 ABG Sent. lg3 03:39 Blood Culture Sent. lg3 05:06 No provider procedures requiring assistance completed. Patient admitted, IV remains in lg3 place. 14:29 Inserted saline lock: 22 gauge in right hand, using aseptic technique. mb7 Administered Medications: 08/23 23:30 Drug: SOLU-Medrol (methylPrednisoLONE) 125 mg Route: IVP; Site: left hand; vc1 23:43 Follow up: Response: No adverse reaction lg3 23:30 Drug: Albuterol - atroVENT (ipratropium) (3:1) (2.5 mg - 0.5 mg) 3 ml Route: Nebulizer; vc1 23:43 Follow up: Response: No adverse reaction lg3 08/24 01:18 Drug: Tussionex Pennkinetic ER (chlorpheniramine-hydrocodone) Suspension 5 ml Route: PO;lg3 01:18 Follow up: Response: No adverse reaction lg3 02:19 Drug: Rocephin (cefTRIAXone) 1 grams Route: IV; Rate: calculated rate; Site: left lg3 forearm; 02:26 Follow up: Response: No adverse reaction; IV Status: Completed infusion; IV Intake: 43itto3 02:19 Drug: AZITHromycin 500 mg Route: IVPB; Infused Over: 1 hrs; Site: left forearm; lg3 02:26 Follow up: Response: No adverse reaction; IV Status: Completed infusion; IV Intake: lg3 250ml Intake: 02:26 IV: 10ml; Total: 10ml. lg3 02:26 IV: 250ml; Total: 260ml. lg3 Outcome: 01:24 Decision to Hospitalize by Provider. pm1 05:06 Admitted to ER Hold. Please see [facility] for further documentation. lg3 05:06 Condition: stable 15:34 Patient left the ED. ll1 Signatures: Dispatcher [employer] EDMS Andrzej Murillo, NICOLA MIXER PIGMENT pm1 Rocio Muñoz RN JEZ lg3 Romeo Ashton RN RN ll1 Kaity Sandhu 5 Linsey Britton 7 Chidi Alexander RN RN sv1 Kyara Wick RN RN vc1
--- NOTE | 2021-08-24 01:26 | EDPHYS ---
Physician Documentation [facility] Name: Joseph Quach Age: 61 yrs Sex: Male : 1960 Arrival Date: 08/23/2021 Time: 23:12 Bed 17 Private MD: ED Physician Todd Avila HPI: 08/23 23:48 This 61 yrs old Male presents to ER via Ambulatory with complaints of Breathing pm1 Difficulty. 23:48 The patient has shortness of breath at rest, and the patient has a history of COPD. pm1 Onset: The symptoms/episode began/occurred 3 day(s) ago. Duration: The symptoms are continuous, and are markedly worse than the original presentation, patient reports home o2 saturation in the 70's. The patient's shortness of breath is alleviated by nebulizer treatment, application of supplemental oxygen. Associated signs and symptoms: Pertinent positives: chest pain, productive cough, sputum color change 3 days ago, Pertinent negatives: fever, nausea, vomiting. Severity of symptoms: in the emergency department the symptoms are worse. The patient has experienced similar episodes in the past, multiple times. The patient has not recently seen a physician, Dr. Douglass manages his COPD. Historical: - Allergies: 23:14 NKDA; tw5 - Home Meds: 23:14 Albuterol Inhl as needed [Active]; Advair Diskus 100-50 mcg/dose Inhl dsdv [Active]; tw5 - PMHx: 23:14 COPD; Oxygen as he needs it; tw5 - PSHx: 23:14 hernia repair -1959; tw - Immunization history:: Flu vaccine is not up to date. - Social history:: Smoking status: Reported history of juuling and/or vaping. ROS: 23:48 Constitutional: Negative for fever, chills, and weight loss. pm1 23:48 Abdomen/GI: Negative for abdominal pain, nausea, vomiting, diarrhea, and constipation, Back: Negative for injury and pain, MS/Extremity: Negative for injury and deformity, Skin: Negative for injury, rash, and discoloration, Neuro: Negative for headache, weakness, numbness, tingling, and seizure. 23:48 Cardiovascular: Positive for chest pain, Negative for edema. 23:48 Respiratory: Positive for cough, with yellow sputum, shortness of breath, at rest. 23:48 All other systems are negative. Exam: 23:48 Constitutional: This is a well developed, well nourished patient who is awake, alert, pm1 and in no acute distress. Head/Face: Normocephalic, atraumatic. 23:48 Skin: Warm, dry with normal turgor. Normal color with no rashes, no lesions, and no evidence of cellulitis. MS/ Extremity: Pulses equal, no cyanosis. Neurovascular intact. Full, normal range of motion. 23:48 Cardiovascular: Exam negative for acute changes, Rate: tachycardic, Rhythm: regular, Pulses: no pulse deficits are appreciated, Heart sounds: normal, normal S1and S2. 23:48 Respiratory: mild respiratory distress is noted, Respirations: tachypnea, Breath sounds: bronchial sounds, that are mild, are heard diffusely, wheezing: expiratory that is mild, is heard diffusely. 23:48 Abdomen/GI: Exam negative for acute changes, Inspection: abdomen appears normal, Palpation: abdomen is soft and non-tender, in all quadrants. 23:48 Neuro: Exam negative for acute changes, Orientation: is normal, Mentation: is normal, Motor: is normal, moves all fours. Vital Signs: 23:13 BP 122 / 80; Pulse 114; Resp 26; Temp 98.2; Pulse Ox 94% on R/A; Weight 104.33 kg; tw5 Height 5 ft. 11 in. (180.34 cm); Pain 4/10; 23:36 BP 132 / 109; Pulse 100 MON; Resp 25 S; Temp 98.3(O); Pulse Ox 94% on R/A; Weight sv1 104.33 kg; Height 5 ft. 11 in. (180.34 cm); 08/24 01:14 BP 140 / 91; Pulse 93; Resp 15 S; Pulse Ox 94% on 3 lpm NC; lg3 02:20 BP 150 / 94; Pulse 95; Resp 21 S; Pulse Ox 94% on 3 lpm NC; Pain 0/10; lg3 08/23 23:36 Body Mass Index 32.08 (104.33 kg, 180.34 cm) sv1 MDM: 08/23 23:21 Patient medically screened. pm1 08/24 01:22 Data reviewed: vital signs. Data interpreted: Pulse oximetry: on 2L(s) per nasal pm1 canula, is 94 %. Interpretation: acceptable. 01:22 Counseling: I had a detailed discussion with the patient and/or guardian regarding: the pm1 historical points, exam findings, and any diagnostic results supporting the discharge/admit diagnosis, lab results, radiology results, the need for further work-up and treatment in the hospital. 01:38 Physician consultation: Percy BUENO was contacted at 01:38, regarding admission, pm1 patient's condition, and will see patient would like further tests performed, ABG. 08/23 23:22 Order name: COVID-19/FLU A+B (Document "Date of Onset" if Symptomatic) pm1 08/23 23:22 Order name: Basic Metabolic Panel; Complete Time: 00:31 pm1 08/23 23:22 Order name: CBC with Diff; Complete Time: 01:25 pm1 08/23 23:22 Order name: LFT's; Complete Time: 00:31 pm1 08/23 23:22 Order name: Magnesium; Complete Time: 00:31 pm1 08/23 23:22 Order name: NT PRO-BNP; Complete Time: 00:31 pm1 08/23 23:22 Order name: PT-INR; Complete Time: 00:07 pm1 08/23 23:22 Order name: Troponin HS; Complete Time: 00:31 pm1 08/23 23:22 Order name: COVID-19/FLU A+B; Complete Time: 01:37 EDMS 08/24 00:19 Order name: CBC Smear Scan; Complete Time: 01:25 EDMS 08/24 01:22 Order name: Blood Culture Adult (2) pm08/24 01:23 Order name: Blood Culture EDMS 08/24 01:37 Order name: ABG pm08/24 01:38 Order name: ABG Arterial Blood Gas; Complete Time: 02:18 EDMS 08/23 23:22 Order name: XRAY Chest (1 view); Complete Time: 20:39 pm1 08/23 23:22 Order name: EKG; Complete Time: 23:23 pm08/23 23:22 Order name: Cardiac monitoring; Complete Time: 23:43 pm1 08/23 23:22 Order name: EKG - Nurse/Tech; Complete Time: 23:41 pm1 08/23 23:22 Order name: IV Saline Lock; Complete Time: 23:41 pm1 08/23 23:22 Order name: Labs collected and sent; Complete Time: 23:41 pm1 08/23 23:22 Order name: O2 Per Protocol; Complete Time: 23:43 pm1 08/23 23:22 Order name: O2 Sat Monitoring; Complete Time: 23:43 pm1 08/24 03:24 Order name: Urine Dipstick-Ancillary (obtain specimen); Complete Time: 03:39 3 08/24 03:39 Order name: Urine Dipstick-Ancillary; Complete Time: 20:39 EDMS Administered Medications: 08/23 23:30 Drug: SOLU-Medrol (methylPrednisoLONE) 125 mg Route: IVP; Site: left hand; vc1 23:43 Follow up: Response: No adverse reaction lg3 23:30 Drug: Albuterol - atroVENT (ipratropium) (3:1) (2.5 mg - 0.5 mg) 3 ml Route: Nebulizer; vc1 23:43 Follow up: Response: No adverse reaction 3 08/24 01:18 Drug: Tussionex Pennkinetic ER (chlorpheniramine-hydrocodone) Suspension 5 ml Route: PO;lg3 01:18 Follow up: Response: No adverse reaction lg3 02:19 Drug: Rocephin (cefTRIAXone) 1 grams Route: IV; Rate: calculated rate; Site: left lg3 forearm; 02:26 Follow up: Response: No adverse reaction; IV Status: Completed infusion; IV Intake: 50nwhy2 02:19 Drug: AZITHromycin 500 mg Route: IVPB; Infused Over: 1 hrs; Site: left forearm; lg3 02:26 Follow up: Response: No adverse reaction; IV Status: Completed infusion; IV Intake: lg3 250ml Disposition Summary: 08/24/21 01:24 Hospitalization Ordered Hospitalization Status: Inpatient Admission pm1 Condition: Stable pm1 Problem: new pm1 Symptoms: have improved pm1 Bed/Room Type: Standard pm1 Provider: Belem Clark(08/24/21 01:38) pm1 Location: Telemetry/MedSurg (Inpatient)(08/24/21 14:16) bd Room Assignment: [facility](08/24/21 14:16) bd Diagnosis - COPD/ Chronic obstructive pulmonary disease with (acute) exacerbation pm1 Forms: - Medication Reconciliation Form pm1 - SBAR form pm1 Addendum: 08/28/2021 00:30 Co-signature as Attending Physician, Todd Avila MD. frederick morrow Signatures: Dispatcher [employer] EDBhavana Conrad Pin, MD MD pkElizabeth Joe, RN RN cg Andrzej Murillo, HAND FLESHER HAND FLESHER pm1 Rocio Muñoz RN RN 3 Kaity Sandhu tw5 Kyara Wick RN RN vc1 Corrections: (The following items were deleted from the chart) 08/24 01:38 01:24 Percy Correia pm1 pm1 02:42 01:24 Telemetry/MedSurg (Inpatient) pm1 cg 02:42 01:24 pm1 cg 14:16 02:42 [facility] ER HOLD cg bd 14:16 02:42 ERHOLD- cg bd
[2021-08-24] MEDS ORDERED: CEFTRIAXONE 1000 MG/VIAL ONE ×2 (01:30→08:10)
[2021-08-24] MEDS ORDERED: AZITHROMYCIN 500 MG INJ IVPB ONE ×2 (01:31→08:10)
[2021-08-24] MEDS ORDERED: NA CHLORIDE 0.9% 100 ML ONE ×2 (01:31→08:10)
[2021-08-24] MEDS ORDERED: NA CHLORIDE 0.9% 250 ML ONE ×2 (01:31→08:10)
[2021-08-24 01:37] LABS: SARS-COV-2 RT PCR NEGATIVE (NEGATIVE)
[2021-08-24 02:14] LABS: Arterial Blood Carboxyhemoglob 3.9 % (0-1.5); Blood Gas Oxyhemoglobin 88.9 % (94-97); Blood O2 Saturation 93.4 % (92-98.5)
--- NOTE | 2021-08-24 02:39 | P.HP ---
Certification for Inpatient Patient admitted to: Inpatient With expected LOS: >2 Midnights Patient will require the following post-hospital care: None Practitioner: I am a practitioner with admitting privileges, knowledge of patient current condition, hospital course, and medical plan of care. Services: Services provided to patient in accordance with Admission requirements found in Title 42 Section 412.3 of the Code of Federal Regulations Patient History Date of Service: 08/24/21 Primary Care Provider: none Reason for admission: COPD exacerbation History of Present Illness: 61-year-old male with history of COPD on chronic home oxygen, history of hepatitis with normocytic shannon presents emergency department for shortness of breath. Patient with increasing shortness of breath over the course last 2 days with productive cough. Patient was evaluated in the emergency department labs were unremarkable chest x-ray appears to demonstrate mild right lower lobe pneumonia. Patient was hypoxic reportedly at home with his oxygen with sats in the 70s to 80s, oxygen okay here on nasal cannula. Patient given IV steroids, breathing treatments still wheezing with tachypnea, ED provider wishes to admit for further evaluation and management of COPD exacerbation. 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 - Family History Sister -: Cancer, Other (see notes) Notes: lupus Brother -: Kidney disease, Other (see notes) Notes: lupus Mother -: Other (see notes) Notes: copd - Social History Smoking Status: Former smoker Alcohol use: No CD- Drugs: No Caffeine use: Yes Place of Residence: Home Review of Systems 10-point ROS is otherwise unremarkable Respiratory: Cough, Shortness of Breath, Sputum, Wheezing Physical Examination - Physical Exam General: Alert, In no apparent distress, Oriented x3 HEENT: Atraumatic, PERRLA, Mucous membr. moist/pink, EOMI, Sclerae nonicteric Neck: Supple, 2+ carotid pulse no bruit, No LAD, Without JVD or thyroid abnormality Respiratory: Expiratory wheezes, Other (tachypnea) Cardiovascular: Regular rate/rhythm, Normal S1 S2 Gastrointestinal: Normal bowel sounds, No tenderness Musculoskeletal: No tenderness Integumentary: No rashes Neurological: Normal gait, Normal speech, Normal strength at 5/5 x4 extr, Normal tone, Normal affect Lymphatics: No axilla or inguinal lymphadenopathy - Studies Laboratory Data (last 24 hrs) 08/23/21 23:35: PT 14.0 H, INR 1.21 08/23/21 23:35: WBC 5.90, Hgb 13.7, Hct 41.1, Plt Count 88 L 08/23/21 23:35: Sodium 139, Potassium 3.9, BUN 13, Creatinine 0.69, Glucose 107 H, Magnesium 1.9, Total Bilirubin 0.9, AST 32, ALT 25, Alkaline Phosphatase 73 Assessment and Plan - Plan Assessment: Acute on chronic hypoxic respiratory failure secondary to COPD with exacerbation complicated with possible right lower lobe pneumonia History of hepatitis C currently with thrombocytopenia Plan: Acute on chronic hypoxic respiratory failure secondary to COPD with exacerbation complicated with possible right lower lobe pneumonia: Scheduled ICS nebs, as needed albuterol/Atrovent, IV steroids, supplemental oxygen as needed, pulmonology consulted. Anticipate clinical improvement over the course next 24 to 48 hours. Patient on home oxygen as needed. We will need to continue this at discharge. History of hepatitis C currently with thrombocytopenia: SCDs for DVT prophylaxis. DVT PPX: SCD Code status: Full Discharge Plan: Home Plan to discharge in: 48 Hours - Advance Directives Does patient have a Living Will: No Does patient have a Durable POA for Healthcare: No - Code Status/Comfort Care Code Status Assessed: Yes (FC) Critical Care: No Time Spent Managing Pts Care (In Minutes): 55
[2021-08-24] MEDS ORDERED: IPRATROPIUM BROM 0.5MG/2.5ML NEB PRN (02:52)
[2021-08-24] MEDS ORDERED: ONDANSETRON 4 MG/2 ML VIAL IV PRN (02:52)
[2021-08-24] MEDS ORDERED: ACETAMINOPHEN 500 MG TAB PO PRN (02:52)
[2021-08-24 03:12] VITALS: BMI 32.1
[2021-08-24] MEDS ORDERED: BENZONATATE 100 MG CAP PO ONE ×2 (03:29→12:53)
[2021-08-24 03:38] LABS: Urine Blood Negative (Negative); Urine Glucose Negative (Negative); Urine Protein Negative (Negative); Urine Specific Gravity >=1.030 (1.005-1.030)
[2021-08-24] MEDS: BENZONATATE 100 MG CAP PO PRN ×3 (03:49→19:51)
--- NOTE | 2021-08-24 08:03 | EKG ---
Test Date: 2021-08-23 Test Time: 23:26:01 Instrument Repair Specialist: MEASUREMENT RESULTS: Intervals: Rate: 101 [place]: 134 QRSD: 84 QT: 338 QTc: 438 [place]: P: 67 [place]: 134 QRS: 78 T: 68 INTERPRETIVE STATEMENTS: Sinus tachycardia with premature atrial complexes Otherwise normal ECG Compared to ECG 05/14/2021 19:13:03 Atrial premature complex(es) now present Sinus rhythm no longer present Electronically Signed On 08-24-21 08:02:43 INSIDE TRUCKER by Manuel Joya
[2021-08-24] MEDS ORDERED: METHYLPREDNISOLONE 40 MG INJ ONE (08:10)
[2021-08-24] MEDS: ARFORMOTEROL TARTRATE 15 MCG/2 ML VIAL.NEB NEB SCH ×2 (08:25→21:50)
[2021-08-24] MEDS ORDERED: ARFORMOTEROL TARTRATE 15 MCG/2 ML VIAL.NEB ONE (08:29)
--- NOTE | 2021-08-24 08:30 | RAD REPORT ---
EXAM DESCRIPTION: RAD - Chest Single View - 08/23/2021 11:53 pm CLINICAL HISTORY: SOB COMPARISON: Chest Single View dated 05/14/2021; Chest Single View dated 12/27/2020; Chest Single View dated 10/20/2020; Chest Single View dated 02/22/2018 FINDINGS: Lines: None. Lungs: No evidence of edema or pneumonia. Pleural: No significant pleural effusions or pneumothorax. Cardiac: The heart size is within normal limits. Bones: No acute fractures. Other: IMPRESSION: No acute cardiopulmonary disease.
[2021-08-24] MEDS ORDERED: METHYLPREDNISOLONE 40 MG INJ IV SCH (09:00)
[2021-08-24] MEDS ORDERED: AZITHROMYCIN IV 500 MG in NA CHLORIDE 0.9% 250 ML IVPB SCH (09:00)
[2021-08-24] MEDS ORDERED: CEFTRIAXONE 1,000 MG in NA CHLORIDE 0.9% 50 ML IVPB SCH (09:00)
--- NOTE | 2021-08-24 10:41 | P.PN ---
Subjective Date of Service: 08/24/21 Chief Complaint: COPD exacerbation Subjective: No new changes, No C/O voiced, Improving Review of Systems 10-point ROS is otherwise unremarkable Physical Examination - Vital Signs Temperature: 97.5 F Blood Pressure: 131/78 Pulse: 98 Respirations: 19 Pulse Ox (%): 98 - Physical Exam General: Alert, In no apparent distress HEENT: Atraumatic, PERRLA, EOMI Neck: Supple, JVD not distended Respiratory: Clear to auscultation bilaterally, Normal air movement Cardiovascular: Regular rate/rhythm, Normal S1 S2 Gastrointestinal: Normal bowel sounds, No tenderness Musculoskeletal: No tenderness Integumentary: No rashes Neurological: Normal speech, Normal tone, Normal affect Lymphatics: No axilla or inguinal lymphadenopathy - Studies Laboratory Data (last 24 hrs) 08/23/21 23:35: PT 14.0 H, INR 1.21 08/23/21 23:35: WBC 5.90, Hgb 13.7, Hct 41.1, Plt Count 88 L 08/23/21 23:35: Sodium 139, Potassium 3.9, BUN 13, Creatinine 0.69, Glucose 107 H, Magnesium 1.9, Total Bilirubin 0.9, AST 32, ALT 25, Alkaline Phosphatase 73 Medications List Reviewed: Yes Assessment & Plan - Problems (Diagnosis) (1) Acute respiratory failure with hypoxia Current Visit: No Status: Acute (2) COPD exacerbation Current Visit: No Status: Acute - Advance Directives Does patient have a Living Will: No Does patient have a Durable POA for Healthcare: No
--- NOTE | 2021-08-24 12:42 | P.CNS ---
Date of Consult: 08/24/21 Primary Care Provider: none Chief Complaint: COPD exacerbation History of Present Illness: Patient is 61 years of age with a history of COPD admitted with an exacerbation/has been worse over the past week more short of breath using his inhaler quit smoking is very short of breath Allergies No Known Drug Allergies Allergy (Verified 05/15/21 01:03) Unknown Home Medications: Oseltamivir [Tamiflu*] 75 mg PO BID 3 Days #6 cap 05/16/21 predniSONE [Prednisone*] 20 mg PO SEECOM 8 Days #12 tab 05/16/21 - Past Medical/Surgical History Diabetic: No -: COPD -: Tobacco abuse -: Hypertension -: 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 - Family History Sister Medical History: Cancer, Other (see notes) Notes: lupus Brother Medical History: Kidney disease, Other (see notes) Notes: lupus Mother Medical History: Other (see notes) Notes: copd - Social History Smoking Status: Current every day smoker Alcohol use: No CD- Drugs: No Caffeine use: No Place of Residence: Home Review of Systems 10-point ROS is otherwise unremarkable General: Weakness Respiratory: Cough, Shortness of Breath Physical Examination Temp Pulse Resp BP Pulse Ox 98.4 F 96 H 20 139/88 93 08/24/21 12:00 08/24/21 12:00 08/24/21 12:00 08/24/21 12:00 08/24/21 12:00 General: Alert, Oriented x3, Mild distress Respiratory: Diminished, Expiratory wheezes Cardiovascular: No edema Gastrointestinal: Normal bowel sounds, Soft and benign Musculoskeletal: No clubbing, No swelling Neurological: Normal speech, Normal strength at 5/5 x4 extr Laboratory Data (last 24 hrs) 08/23/21 23:35: PT 14.0 H, INR 1.21 08/23/21 23:35: WBC 5.90, Hgb 13.7, Hct 41.1, Plt Count 88 L 08/23/21 23:35: Sodium 139, Potassium 3.9, BUN 13, Creatinine 0.69, Glucose 107 H, Magnesium 1.9, Total Bilirubin 0.9, AST 32, ALT 25, Alkaline Phosphatase 73 - Problems (1) COPD exacerbation Current Visit: No Status: Acute Plan: Patient is 61 years of age admitted with COPD exacerbation chest x-ray shows some interstitial changes blood gases labs reviewed vital signs satisfactory he is using a bronchodilator at home possible discharge tomorrow check for whether he qualifies for home O2 can be discharged home on prednisone 20 twice daily for 7 days and antibiotics for 5 days he will need a long-acting bronchodilator and follow-up with me in 2-week
[2021-08-24] MEDS ORDERED: IPRATROPIUM BROM 0.5MG/2.5ML ONE (13:54)
[2021-08-24] MEDS ORDERED: ALBUTEROL 2.5 MG/3 ML NEB SOL ONE (13:54)
[2021-08-24] MEDS: IPRATROPIUM BROM 0.5MG/2.5ML NEB SCH ×2 (13:55→21:50)
[2021-08-24] MEDS: ALBUTEROL 2.5 MG/3 ML NEB SOL NEB PRN (13:55)
[2021-08-24] MEDS: GUAIFENESIN/CODEINE 5ML UCUP PO PRN (16:53)
[2021-08-24] MEDS: predniSONE 20 MG TAB PO SCH (19:51)
[2021-08-25] MEDS: GUAIFENESIN/CODEINE 5ML UCUP PO PRN (03:33)
[2021-08-25] MEDS: ALBUTEROL 2.5 MG/3 ML NEB SOL NEB PRN (04:20)
[2021-08-25] MEDS: IPRATROPIUM BROM 0.5MG/2.5ML NEB SCH ×2 (04:20→08:30)
[2021-08-25 05:32] LABS: Absolute Lymphocytes (CBC) 0.7 K/uL (0.7-4.9); Hematocrit 37.5 % (39.6-49.0); Lymphocytes % 10.2 % (15.3-44.8); MPV 7.6 fL (7.6-11.3); RBC Red Blood Cell Count 4.02 M/uL (4.33-5.43)
[2021-08-25 05:48] LABS: ALT/SGPT 23 U/L (12-78); AST/SGOT 26 U/L (15-37); Albumin 2.6 g/dL (3.4-5.0); Alkaline Phosphatase 68 U/L (45-117); BUN Blood Urea Nitrogen 17 mg/dL (7-18); Bicarbonate 27 mmol/L (21-32); Bilirubin Total 0.5 mg/dL (0.2-1.0); Glucose Level 142 mg/dL (74-106); NT PRO-BNP 132 pg/mL (<125); Potassium 4.5 mmol/L (3.5-5.1); Protein, Total 6.7 g/dL (6.4-8.2); Sodium Level 137 mmol/L (136-145)
[2021-08-25 06:47] VITALS: BP 125/69; TEMP 97.9
--- NOTE | 2021-08-25 07:25 | RAD REPORT ---
EXAM DESCRIPTION: RAD - Chest Single View - 08/25/2021 6:18 am CLINICAL HISTORY: pneumonia COMPARISON: Portable August 23 TECHNIQUE: AP portable chest image was obtained 08/25/2021 6:18 am . FINDINGS: Minimal prominence of the interstitial pattern remains. No new or progressive lung parench ymal finding. Heart and vasculature are normal. No measurable pleural effusion and no pneumothorax. Delete select IMPRESSION: No new or progressive lung parenchymal finding. Stable exam since August 23.
[2021-08-25] MEDS: ARFORMOTEROL TARTRATE 15 MCG/2 ML VIAL.NEB NEB SCH (08:30)
--- NOTE | 2021-08-25 08:44 | P.PN ---
Subjective Date of Service: 08/25/21 Primary Care Provider: none Chief Complaint: COPD exacerbation Subjective: Improving (Patient is doing much better cough is improved) Review of Systems Respiratory: Cough, Shortness of Breath Physical Examination - Vital Signs Temperature: 97.9 F Blood Pressure: 125/69 Pulse: 86 Respirations: 18 Pulse Ox (%): 93 - Physical Exam General: Alert, In no apparent distress, Oriented x3 HEENT: Atraumatic Respiratory: Expiratory wheezes Cardiovascular: No edema, Regular rate/rhythm - Studies Medications List Reviewed: Yes Assessment & Plan - Problems (Diagnosis) (1) COPD exacerbation Current Visit: No Status: Acute Plan: Patient has improved significantly plan to discharge home on Dulera 2 puffs twice a day patient has albuterol at home to be used as as needed basis DC Flovent discharge home on prednisone 10 twice a day for at least 10 days continue with antibiotics follow-up with me in 2 weeks may qualify for home O2
[2021-08-25] MEDS ORDERED: DULERA 200/5 (MOMETASONE/FORMOTEROL) INHALER IH SCH (09:00)
[2021-08-25] MEDS ORDERED: levoFLOXacin 500 MG TAB PO SCH (09:00)
[2021-08-25] MEDS: predniSONE 20 MG TAB PO SCH (09:01)
[2021-08-25 09:40] VITALS: O2SAT 94
== END 2021-08-25 11:52 | disposition home or self-care (01) | DRG 190 ==
LOC: ER 23:07 → ERHOLD 08-24 02:06 → 2ND 08-24 15:22
PROVIDERS: ADMIT Hospitalist; ATTEND Hospitalist
DX: J44.1 Chronic obstructive pulmonary disease with (acute) exacerbation (principal); J18.9 Pneumonia, unspecified organism; J96.21 Acute and chronic respiratory failure with hypoxia; J44.0 Chronic obstructive pulmonary disease with (acute) lower respiratory infection; Z99.81 Dependence on supplemental oxygen; D69.6 Thrombocytopenia, unspecified; Z87.891 Personal history of nicotine dependence; Z86.19 Personal history of other infectious and parasitic diseases; Z20.822 Contact with and (suspected) exposure to COVID-19
CPT/HCPCS: 0240U; 36415; 71045; 80048; 80053; 80076; 81003; 82805; 83735; 83880; 84484; 85025; 85610; 87040; 93005; 94640; 99285; J0456; J2920; J2930; J7050; J7512; J7605; J7606

== ENCOUNTER 2021-10-13 20:27 | Inpatient (IN) | payer SELFPAY ==
[2021-10-13] MEDS ORDERED: ALBUTEROL 2.5 MG/3 ML NEB SOL ONE (21:06)
[2021-10-13] MEDS ORDERED: METHYLPREDNISOLONE 125 MG INJ ONE (21:06)
[2021-10-13 21:13] LABS: Absolute Lymphocytes (CBC) 0.8 K/uL (0.7-4.9); Hematocrit 48.4 % (39.6-49.0); Lymphocytes % 22.4 % (15.3-44.8); MPV 7.2 fL (7.6-11.3); RBC Red Blood Cell Count 5.18 M/uL (4.33-5.43)
[2021-10-13 21:15] LABS: Blood Gas Oxyhemoglobin 88.6 % (94-97); Blood O2 Saturation 91.7 % (92-98.5)
[2021-10-13 21:16] LABS: Arterial Blood Carboxyhemoglob 2.4 % (0-1.5)
[2021-10-13 21:16] LABS: Protime INR 1.23
[2021-10-13 21:33] LABS: ALT/SGPT 33 U/L (12-78); AST/SGOT 39 U/L (15-37); Albumin 3.4 g/dL (3.4-5.0); Alkaline Phosphatase 80 U/L (45-117); BUN Blood Urea Nitrogen 13 mg/dL (7-18); Bicarbonate 31 mmol/L (21-32); Bilirubin Direct 0.4 mg/dL (0-0.2); Bilirubin Total 1.1 mg/dL (0.2-1.0); Glucose Level 93 mg/dL (74-106); Magnesium 1.5 mg/dL (1.8-2.4); Protein, Total 7.9 g/dL (6.4-8.2); Sodium Level 137 mmol/L (136-145)
[2021-10-13 21:48] LABS: SARS-COV-2 RT PCR NEGATIVE (NEGATIVE)
[2021-10-13 21:49] LABS: NT PRO-BNP 33 pg/mL (<125)
[2021-10-13] MEDS ORDERED: Magnesium Sulfate 2gm IVPB 2 G/50 ML BAG IV ONE (22:01)
--- NOTE | 2021-10-13 22:08 | P.HP ---
Certification for Inpatient Patient admitted to: Inpatient With expected LOS: >2 Midnights Patient will require the following post-hospital care: None Practitioner: I am a practitioner with admitting privileges, knowledge of patient current condition, hospital course, and medical plan of care. Services: Services provided to patient in accordance with Admission requirements found in Title 42 Section 412.3 of the Code of Federal Regulations Patient History Date of Service: 10/13/21 Reason for admission: COPD exacerbation History of Present Illness: 61-year-old male with history of COPD on chronic home oxygen, history of hepatitis presents emergency department for increasing shortness of breath. Patient reports that his saturations were in the 80s on his normal amount of home oxygen which is 2 L. Patient does not take chronic steroid therapy. Patient evaluated here in the emergency department was found to be mildly hypoxic on 2 L still with expiratory wheezing and mild dyspnea. This x-ray without acute findings pending official radiology interpretation. Patient was given Solu-Medrol, nebulizer treatment still with significant shortness of breath, expiratory wheezing. Will admit for further evaluation and management of acute on chronic hypoxic respiratory failure related to COPD with exacerbation. Allergies No Known Drug Allergies Allergy (Verified 05/15/21 01:03) Unknown Home Medications: Benzonatate [Tessalon Perle*] 100 mg PO TID PRN #30 cap 08/25/21 Gabapentin 300 mg PO BID #60 08/25/21 Guaifen W/Codeine Syrup [ROBITUSSIN A-C Syrup*] 10 ml PO BID PRN #100 ml 08/25/21 Ipratropium/Albuterol Sulfate [Iprat-Albut 0.5-3(2.5) mg/3 ml] 3 ml NEB Q6H #60 ampul.neb 08/25/21 Mometasone/Formoterol [Dulera 200 Mcg/5 Mcg Inhaler] 2 puff IH BID #1 inhaler 08/25/21 levoFLOXacin [Levaquin*] 500 mg PO DAILY #7 tab 08/25/21 predniSONE [Prednisone*] 20 mg PO BID #20 tab 08/25/21 - Past Medical/Surgical History Diabetic: No -: COPD -: Tobacco abuse -: Hypertension -: 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 - Family History Sister -: Cancer, Other (see notes) Notes: lupus Brother -: Kidney disease, Other (see notes) Notes: lupus Mother -: Other (see notes) Notes: copd - Social History Smoking Status: Light Tobacco smoker (1-9 cigarettes/day) Counseled patient to stop smoking for: less than 10 minutes Alcohol use: No CD- Drugs: No Caffeine use: No Place of Residence: Home Review of Systems 10-point ROS is otherwise unremarkable Respiratory: Cough, Shortness of Breath, Sputum (green) Physical Examination - Physical Exam General: Alert, In no apparent distress, Oriented x3 HEENT: Atraumatic Neck: Supple Respiratory: Diminished, Expiratory wheezes Cardiovascular: No edema, Normal S1 S2 Capillary refill: <2 Seconds Gastrointestinal: Normal bowel sounds Musculoskeletal: No erythema, No tenderness, No warmth Integumentary: No erythema, No warmth Neurological: Normal speech, Normal tone - Studies Laboratory Data (last 24 hrs) 10/13/21 20:56: PT 13.6 H, INR 1.23 10/13/21 20:56: WBC 3.80 L, Hgb 16.4, Hct 48.4, Plt Count 108 L 10/13/21 20:56: Sodium 137, Potassium 4.0, BUN 13, Creatinine 0.63, Glucose 93, Magnesium 1.5 L D, Total Bilirubin 1.1 H, AST 39 H, ALT 33, Alkaline Phosphatase 80 Assessment and Plan - Plan Assessment: Acute on chronic hypoxic respiratory failure secondary to COPD with exacerb ationon chronic home oxygen 2 L History of cirrhosis of liver secondary to hepatitis C with chronic anemia/thrombocytopenia Hypomagnesemia Tobacco abuse Plan: Acute on chronic hypoxic respiratory failure secondary to COPD with exacerbationon chronic home oxygen 2 L: Scheduled nebulizer treatment, as needed albuterol/Atrovent, IV steroids, supplemental oxygen as needed. Pulmonary consulted. History of cirrhosis of liver secondary to hepatitis C with chronic anemia/thrombocytopenia: Stable, will hold Lovenox if platelets drop less than 100 currently 108. Hypomagnesemia: Replaced in the ER, monitor daily, protocol in place. Tobacco abuse: Patient reports he is down to about 3 cigarettes per day counseled on need for complete cessation. DVT PPX: Lovenox, hold if platelets less than 100 Code status: Full Discharge Plan: Home Plan to discharge in: 48 Hours - Advance Directives Does patient have a Living Will: No Does patient have a Durable POA for Healthcare: No - Code Status/Comfort Care Code Status Assessed: Yes (Full) Critical Care: No Time Spent Managing Pts Care (In Minutes): 55
--- NOTE | 2021-10-13 22:19 | RAD REPORT ---
EXAM DESCRIPTION: RAD - Chest Single View - 10/13/2021 10:05 pm CLINICAL HISTORY: SOB Chest pain. COMPARISON: Chest Single View dated 08/25/2021; Chest Single View dated 08/23/2021; Chest Single View dated 05/14/2021; Chest Single View dated 12/27/2020 FINDINGS: Portable technique limits examination quality. The lungs are emphysematous but grossly clear. The heart is upper limit of normal in size. No displac ed fractures. IMPRESSION: [id number] COPD.
--- NOTE | 2021-10-13 22:41 | ER ---
Nurse's Notes [facility] Name: Joseph Quach Age: 61 yrs Sex: Male : 1960 Arrival Date: 10/13/2021 Time: 20:28 Bed 5 Private MD: Diagnosis: COPD/ Chronic obstructive pulmonary disease with (acute) exacerbation Presentation: 10/13 20:35 Chief complaint: Patient states: "I've been SOB for the past 4 days but today it has ab2 gotten worse. Im supposed to wear oxygen but I didn't bring it.". Coronavirus screen: Vaccine status: Patient reports being unvaccinated. Client denies travel out of the [place] in the last 14 days. difficulty breathing, shortness of breath, Client presents with at least one sign or symptom that may indicate coronavirus-19. Standard/surgical mask placed on the client. Provider contacted for isolation considerations. Ebola Screen: Patient negative for fever greater than or equal to 101.5 degrees Fahrenheit, and additional compatible Ebola Virus Disease symptoms Patient denies exposure to infectious person. Patient denies travel to an Ebola-affected area in the 21 days before illness onset. No symptoms or risks identified at this time. Initial Sepsis Screen: Does the patient meet any 2 criteria? RR > 20 per min. HR > 90 bpm. Yes Does the patient have a suspected source of infection? No. Patient's initial sepsis screen is negative. Risk Assessment: Do you want to hurt yourself or someone else? Patient reports no desire to harm self or others. Onset of symptoms is unknown. 20:35 Method Of Arrival: Ambulatory ab2 20:35 Acuity: AISLINN 3 ab2 Triage Assessment: 20:37 General: Appears in no apparent distress. uncomfortable, Behavior is calm, cooperative, ab2 appropriate for age. Pain: Denies pain. Respiratory: Reports shortness of breath at rest labored breathing Airway is patent Respiratory effort is labored, Respiratory pattern is symmetrical, Onset: The symptoms/episode began/occurred gradually, the patient has moderate shortness of breath. Historical: - Allergies: 20:37 NKDA; ab2 - Home Meds: 20:37 Advair Diskus 100-50 mcg/dose Inhl dsdv [Active]; Albuterol Inhl as needed [Active]; ab2 - PMHx: 20:37 COPD; ab2 - PSHx: 20:37 hernia repair -1960; ab2 - Immunization history:: Adult Immunizations up to date. - Social history:: Smoking status: Patient reports the use of cigarette tobacco products, unknown amount. Screenin:14 Abuse screen: Denies threats or abuse. Denies injuries from another. Nutritional as6 screening: No deficits noted. Tuberculosis screening: No symptoms or risk factors identified. Fall Risk None identified. Assessment: 20:40 General: Appears distressed, Behavior is cooperative, anxious. Pain: Complains of pain as6 in anterior aspect of right upper chest. Neuro: Level of Consciousness is awake, alert, obeys commands, Oriented to person, place, time, situation. Cardiovascular: Reports chest pain, shortness of breath, Rhythm is sinus tachycardia. 20:40 Respiratory: Airway is patent Trachea midline Respiratory effort is labored, using as6 tripod position, Respiratory pattern is regular, symmetrical, Breath sounds with crackles bilaterally. Vital Signs: 20:30 BP 152 / 82; Pulse 115; Resp 16; Pulse Ox 95% on R/A; st1 20:35 BP 183 / 104; Pulse 117; Resp 28; Temp 97.9(TE); Pulse Ox 86% on R/A; Weight 102.06 kg; ab2 Height 5 ft. 11 in. (180.34 cm); Pain 0/10; 21:00 BP 126 / 83; Pulse 102; Resp 15; Pulse Ox 95% on 2 lpm NC; st1 21:15 BP 122 / 73; Pulse 95; Resp 13; Pulse Ox 99% on 2 lpm NC; st1 22:15 BP 140 / 95; Pulse 98; Resp 27; Pulse Ox 93% on 2 lpm NC; st1 23:15 BP 138 / 99; Pulse 99; Resp 21; Pulse Ox 91% on 2 lpm NC; lg3 03 00:27 BP 136 / 86; Pulse 99; Resp 21 S; Pulse Ox 91% on 2 lpm NC; lg3 10/13 20:35 Body Mass Index 31.38 (102.06 kg, 180.34 cm) ab2 ED Course: 10/13 20:28 Patient arrived in ED. kc5 20:31 Fabian Bourne MD is Attending Physician. mh7 20:31 Lawson Dangelo, JEZ is Primary Nurse. as6 20:37 Triage completed. ab2 20:38 Arm band placed on right wrist. ab2 20:50 Inserted saline lock: 22 gauge in left antecubital area, using aseptic technique. Blood as6 collected. 21:00 COVID-19/FLU A+B (Document "Date of Onset" if Symptomatic) Sent. as6 21:00 CBC with Diff Sent. as6 21:00 LFT's Sent. as6 21:00 Magnesium Sent. as6 21:00 NT PRO-BNP Sent. as6 21:00 PT-INR Sent. as6 21:00 Troponin HS Sent. as6 21:00 Basic Metabolic Panel Sent. as6 21:15 Placed in gown. Bed in low position. Call light in reach. Side rails up X2. Cardiac as6 monitor on. Pulse ox on. NIBP on. 22:27 XRAY Chest (1 view) Sent. st1 22:27 Basic Metabolic Panel Sent. st1 22:39 Bright Bowers MD is Hospitalizing Provider. 7 23:44 No provider procedures requiring assistance completed. st1 23:57 Patient admitted, IV remains in place. st1 Administered Medications: 21:07 Drug: Albuterol - atroVENT (ipratropium) (3:1) (2.5 mg - 0.5 mg) 3 ml Route: Nebulizer; st1 21:31 Follow up: Response: No adverse reaction st1 21:07 Drug: SOLU-Medrol (methylPrednisoLONE) 125 mg Route: IVP; Site: left antecubital; st1 21:32 Follow up: Response: No adverse reaction; Other; Other: patient states he is able to st1 breathe better 22:06 Drug: Magnesium Sulfate 2 grams Route: IVPB; Infused Over: 2 hrs; Site: left ke1 antecubital; 10/14 00:28 Follow up: Response: No adverse reaction; IV Status: Completed infusion; IV Intake: lg3 100ml Intake: 00:28 IV: 100ml; Total: 100ml. lg3 Outcome: 10/13 22:40 Decision to Hospitalize by Provider. 7 23:56 Admitted to [facility] accompanied by tech, via stretcher, room 215, with oxygen, with chart, st1 Report called to JEZ Diggs 23:56 Condition: good 23:56 Instructed on the need for admit, Demonstrated understanding of admission to the hospital 10/14 00:25 Patient left the ED. lg3 Signatures: Rocio Muñoz, RN RN lg3 Fabian Bourne MD MD mh7 Lawson Dangelo RN RN as6 Shirley Jeffrey 5 Ez Balderas 2 Andree Alvarez RN RN st1 CarlosA Alcantara RN RN ke1 Corrections: (The following items were deleted from the chart) 10/13 21:15 21:14 PMHx: Oxygen as he needs it; as6 as6
--- NOTE | 2021-10-13 22:41 | EDPHYS ---
Physician Documentation [facility] Name: Joseph Quach Age: 61 yrs Sex: Male : 1960 Arrival Date: 10/13/2021 Time: 20:28 Bed 5 Private MD: ED Physician Fabian Bourne HPI: 10/13 20:52 This 61 yrs old Male presents to ER via Ambulatory with complaints of Breathing mh7 Difficulty. 20:52 The patient has shortness of breath at rest. Onset: The symptoms/episode began/occurred mh7 4 day(s) ago. Duration: The symptoms are continuous, and are steadily getting worse. The patient's shortness of breath is aggravated by coughing, exertion, light activity, is alleviated by nothing. Associated signs and symptoms: Pertinent positives: chest pain, productive cough, Pertinent negatives: non-productive cough, diaphoresis, dizziness, fever, hemoptysis, loss of consciousness, nausea, numbness in extremities, visual changes, vomiting. Severity of symptoms: At their worst the symptoms were moderate last night, in the emergency department the symptoms are unchanged. The patient has experienced similar episodes in the past, multiple times. Historical: - Allergies: 20:37 NKDA; ab2 - Home Meds: 20:37 Advair Diskus 100-50 mcg/dose Inhl dsdv [Active]; Albuterol Inhl as needed [Active]; ab2 - PMHx: 20:37 COPD; ab2 - PSHx: 20:37 hernia repair -1959; ab2 - Immunization history:: Adult Immunizations up to date. - Social history:: Smoking status: Patient reports the use of cigarette tobacco products, unknown amount. ROS: 20:52 Constitutional: Negative for fever, chills, and weight loss, Eyes: Negative for injury, mh7 pain, redness, and discharge, ENT: Negative for injury, pain, and discharge, Neck: Negative for injury, pain, and swelling, Abdomen/GI: Negative for abdominal pain, nausea, vomiting, diarrhea, and constipation, Back: Negative for injury and pain, : Negative for injury, bleeding, discharge, and swelling, MS/Extremity: Negative for injury and deformity, Skin: Negative for injury, rash, and discoloration, Neuro: Negative for headache, weakness, numbness, tingling, and seizure, Psych: Negative for depression, anxiety, suicide ideation, homicidal ideation, and hallucinations, Allergy/Immunology: Negative for hives, rash, and allergies, Endocrine: Negative for neck swelling, polydipsia, polyuria, polyphagia, and marked weight changes, Hematologic/Lymphatic: Negative for swollen nodes, abnormal bleeding, and unusual bruising. Exam: 20:52 Head/Face: Normocephalic, atraumatic. Eyes: Pupils equal round and reactive to light, mh7 extra-ocular motions intact. Lids and lashes normal. Conjunctiva and sclera are non-icteric and not injected. Cornea within normal limits. Periorbital areas with no swelling, redness, or edema. Neck: Trachea midline, no thyromegaly or masses palpated, and no cervical lymphadenopathy. Supple, full range of motion without nuchal rigidity, or vertebral point tenderness. No Meningismus. Chest/axilla: Normal chest wall appearance and motion. Nontender with no deformity. No lesions are appreciated. 20:52 Abdomen/GI: Soft, non-tender, with normal bowel sounds. No distension or tympany. No guarding or rebound. No evidence of tenderness throughout. Back: No spinal tenderness. No costovertebral tenderness. Full range of motion. Skin: Warm, dry with normal turgor. Normal color with no rashes, no lesions, and no evidence of cellulitis. MS/ Extremity: Pulses equal, no cyanosis. Neurovascular intact. Full, normal range of motion. Neuro: Awake and alert, GCS 15, oriented to person, place, time, and situation. Cranial nerves II-XII grossly intact. Motor strength 5/5 in all extremities. Sensory grossly intact. Cerebellar exam normal. Normal gait. Psych: Awake, alert, with orientation to person, place and time. Behavior, mood, and affect are within normal limits. 20:52 Constitutional: The patient appears alert, awake, in obvious distress, mildly distressed. 20:52 Cardiovascular: Rate: tachycardic, Rhythm: regular, Pulses: no pulse deficits are appreciated, Heart sounds: normal, normal S1and S2, Edema: is not appreciated, JVD: is not appreciated. 20:52 Respiratory: mild respiratory distress is noted, Respirations: prolonged exhalation, that is moderate, tachypnea, that is mild, Breath sounds: rhonchi, that are moderate, are heard diffusely, wheezing: expiratory that is moderate, is heard diffusely, Respiratory rate: 28 20:52 ECG was reviewed by the Attending Physician. 7 Vital Signs: 20:30 BP 152 / 82; Pulse 115; Resp 16; Pulse Ox 95% on R/A; st1 20:35 BP 183 / 104; Pulse 117; Resp 28; Temp 97.9(TE); Pulse Ox 86% on R/A; Weight 102.06 kg; ab2 Height 5 ft. 11 in. (180.34 cm); Pain 0/10; 21:00 BP 126 / 83; Pulse 102; Resp 15; Pulse Ox 95% on 2 lpm NC; st1 21:15 BP 122 / 73; Pulse 95; Resp 13; Pulse Ox 99% on 2 lpm NC; st1 22:15 BP 140 / 95; Pulse 98; Resp 27; Pulse Ox 93% on 2 lpm NC; st1 23:15 BP 138 / 99; Pulse 99; Resp 21; Pulse Ox 91% on 2 lpm NC; lg3 10/14 00:27 BP 136 / 86; Pulse 99; Resp 21 S; Pulse Ox 91% on 2 lpm NC; lg3 10/13 20:35 Body Mass Index 31.38 (102.06 kg, 180.34 cm) ab2 MDM: 10/13 22:36 Differential diagnosis: Anemia Anxiety Reaction asthma, Bronchitis CHF exacerbation, 7 Chronic Obstructive Pulmonary Disease Myocardial Infarction pneumonia, Pneumothorax Psychogenic pulmonary edema, reactive airway disease. Data reviewed: vital signs, nurses notes, old medical records, lab test result(s), EKG, radiologic studies, plain films. Data interpreted: Pulse oximetry: on 2L(s) per nasal canula, is 93 %. Interpretation: acceptable. Counseling: I had a detailed discussion with the patient and/or guardian regarding: the historical points, exam findings, and any diagnostic results supporting the discharge/admit diagnosis, the presence of at least one elevated blood pressure reading (>120/80) during this emergency department visit, lab results, radiology results, the need for further work-up and treatment in the hospital. Response to treatment: the patient's symptoms have mildly improved after treatment. 22:40 Patient medically screened. [facility] 10/13 20:47 Order name: Basic Metabolic Panel [facility] 10/13 20:47 Order name: CBC with Diff; Complete Time: 21:40 [facility] 10/13 20:47 Order name: LFT's; Complete Time: 22:05 [facility] 10/13 20:47 Order name: Magnesium; Complete Time: 22:05 [facility] 10/13 20:47 Order name: NT PRO-BNP; Complete Time: 22:05 [facility] 10/13 20:47 Order name: PT-INR; Complete Time: 21:40 [facility] 10/13 20:47 Order name: Troponin HS; Complete Time: 22:05 [facility] 10/13 20:47 Order name: XRAY Chest (1 view) [facility] 10/13 20:47 Order name: COVID-19/FLU A+B (Document "Date of Onset" if Symptomatic); Complete Time: [facility] :10/13 20:47 Order name: Basic Metabolic Panel; Complete Time: 22:05 [facility] 10/13 20:48 Order name: Arterial Blood Gas; Complete Time: 21:20 [facility] 10/13 22:20 Order name: RAD; Complete Time: 22:33 [facility] 10/13 20:47 Order name: EKG; Complete Time: 20:47 [facility] 10/13 20:47 Order name: Cardiac monitoring; Complete Time: 21:00 [facility] 10/13 20:47 Order name: EKG - Nurse/Tech; Complete Time: 21:00 [facility] 10/13 20:47 Order name: IV Saline Lock; Complete Time: 21:00 [facility] 10/13 20:47 Order name: Labs collected and sent; Complete Time: 21:00 [facility] 10/13 20:47 Order name: O2 Per Protocol; Complete Time: 21:00 [facility] 10/13 20:47 Order name: O2 Sat Monitoring; Complete Time: 21:00 [facility] EC:52 Rate is 107 beats/min. Rhythm is regular, Sinus tachycardia with No ectopy. QRS [place] is 7 Normal. IA interval is normal. QRS interval is normal. QT interval is normal. No Q waves. T waves are Normal. No ST changes noted. Clinical impression: Sinus tachycardia and No evidence of ischemia. Administered Medications: 21:07 Drug: Albuterol - atroVENT (ipratropium) (3:1) (2.5 mg - 0.5 mg) 3 ml Route: Nebulizer; st1 21:31 Follow up: Response: No adverse reaction st1 21:07 Drug: SOLU-Medrol (methylPrednisoLONE) 125 mg Route: IVP; Site: left antecubital; st1 21:32 Follow up: Response: No adverse reaction; Other; Other: patient states he is able to st1 breathe better 22:06 Drug: Magnesium Sulfate 2 grams Route: IVPB; Infused Over: 2 hrs; Site: left ke1 antecubital; 10/14 00:28 Follow up: Response: No adverse reaction; IV Status: Completed infusion; IV Intake: lg3 100ml Disposition Summary: 10/13/21 22:40 Hospitalization Ordered Hospitalization Status: Inpatient Admission [facility] Provider: Bright Bowers [facility] Location: Telemetry/MedSurg (Inpatient) [facility] Condition: Stable [facility] Problem: an acute exacerbation [facility] Symptoms: have improved [facility] Bed/Room Type: Standard [facility] Room Assignment: [facility](10/13/21 23:10) Diagnosis - COPD/ Chronic obstructive pulmonary disease with (acute) exacerbation [facility] Forms: - Medication Reconciliation Form [facility] - SBAR form [facility] Signatures: Dispatcher [employer] EDMS Yessy Marquis RN RN Percy Correia, IMPORT COORDINATION AND PRODUCTION HEAD-C IMPORT COORDINATION AND PRODUCTION HEAD-Cla1 Fabian Bourne MD MD 7 Lawson Dangelo RN RN as6 Ez Balderas Shellie, RN RN st1 Carlos A Alcantara RN RN ke1 Rocio Muñoz RN lg3 Corrections: (The following items were deleted from the chart) 10/13 21:15 21:14 PMHx: Oxygen as he needs it; as6 as6 23:10 22:40 [facility] hospital
[2021-10-14] MEDS ORDERED: ACETAMINOPHEN 500 MG TAB PO PRN (00:39)
[2021-10-14] MEDS ORDERED: ONDANSETRON 4 MG/2 ML VIAL IV PRN (00:39)
[2021-10-14] MEDS ORDERED: GUAIFENESIN/CODEINE 5ML UCUP PO PRN (00:39)
[2021-10-14 00:58] VITALS: BMI 31.0
[2021-10-14] MEDS: METHYLPREDNISOLONE 40 MG INJ IV SCH ×2 (01:23→10:35)
[2021-10-14 04:14] LABS: Absolute Lymphocytes (CBC) 0.4 K/uL (0.7-4.9); Hematocrit 43.7 % (39.6-49.0); Lymphocytes % 11.1 % (15.3-44.8); MPV 6.9 fL (7.6-11.3); RBC Red Blood Cell Count 4.75 M/uL (4.33-5.43)
[2021-10-14 04:35] LABS: ALT/SGPT 32 U/L (12-78); AST/SGOT 34 U/L (15-37); Albumin 3.1 g/dL (3.4-5.0); Alkaline Phosphatase 72 U/L (45-117); BUN Blood Urea Nitrogen 15 mg/dL (7-18); Bicarbonate 27 mmol/L (21-32); Glucose Level 153 mg/dL (74-106); Magnesium 2.1 mg/dL (1.8-2.4); Potassium 4.3 mmol/L (3.5-5.1); Protein, Total 7.2 g/dL (6.4-8.2); Sodium Level 135 mmol/L (136-145)
[2021-10-14 04:38] LABS: Blood Morphology Comment NOT SEEN (NOT SEEN); Platelet Estimate ADEQ
--- NOTE | 2021-10-14 06:12 | P.PN ---
Date of Service: 10/14/21 Subjective: still short of breath, wheezing feeling better vs yesterday denies fever/chills, no new symptoms since admission ROS: 10 point ROS as noted above, otherwise negative Physical exam GEN: Alert, oriented HEENT: Normal conjunctiva, sclera anicteric CV: Regular rate and rhythm, no edema Pulm: Bilateral expiratory wheeze, on 2L NC, slightly tachypneic ABD: Soft, nontender, nondistended Neuro: Normal speech, normal affect Problem List Acute on chronic hypoxic respiratory failure secondary to COPD with exacerbationon chronic home oxygen 2 L History of cirrhosis of liver secondary to hepatitis C with chronic anemia/ thrombocytopenia Hypomagnesemia Tobacco abuse Continue steroids, nebulizers Wean oxygen as tolerated Pulmonology consulted Patient with multiple admissions over the last 6 months due to COPD exacerbation Reports he continues to take his medications as prescribed, has been cutting back on smoking, but does still smoke. 3 cigarettes/day No evidence of pneumonia on chest x-ray VTE: Lovenox Code: Full Dispo: Home, tomorrow, pending further improvement Time Spent Managing Pts Care (In Minutes): 35
--- NOTE | 2021-10-14 07:23 | EKG ---
Test Date: 2021-10-13 Test Time: 19:44:06 Machine Guide Base Winder: JULIANNA MEASUREMENT RESULTS: Intervals: Rate: 107 CT: 134 QRSD: 82 QT: 350 QTc: 467 [place]: P: 83 CT: 134 QRS: 72 T: 70 INTERPRETIVE STATEMENTS: Sinus tachycardia Otherwise normal ECG Compared to ECG 08/23/2021 23:26:01 Atrial premature complex(es) no longer present Electronically Signed On 10-14-21 07:22:00 CDT by Manuel Joya
[2021-10-14] MEDS ORDERED: INFLUENZA VACCINE (for 6+ mo) 0.5 ML DOSE IMVAC ONE (08:00)
[2021-10-14] MEDS ORDERED: ARFORMOTEROL TARTRATE 15 MCG/2 ML VIAL.NEB NEB SCH (08:00)
[2021-10-14] MEDS: ALBUTEROL 2.5 MG/3 ML NEB SOL NEB PRN ×2 (08:08→13:04)
[2021-10-14] MEDS: IPRATROPIUM BROM 0.5MG/2.5ML NEB PRN ×2 (08:08→13:04)
[2021-10-14] MEDS: ENOXAPARIN 40 MG/0.4 ML SQ SCH (09:00)
[2021-10-14 10:23] LABS: Urine Appearance CLEAR (Clear); Urine Bilirubin NEGATIVE (Negative); Urine Blood NEGATIVE (Negative); Urine Color DK YELLOW (Yellow); Urine Glucose NEGATIVE (Negative); Urine Protein NEGATIVE (Negative); Urine Specific Gravity 1.025 (1.005-1.030)
[2021-10-14 10:28] LABS: Urine Microscopic Reflex NO UMIC
[2021-10-14] MEDS: GABAPENTIN 300 MG CAP PO SCH ×2 (10:35→20:37)
--- NOTE | 2021-10-14 12:06 | P.CNS ---
Date of Consult: 10/14/21 Reason for Consult: COPD exacerbation Chief Complaint: COPD exacerbation History of Present Illness: Patient is 61 years of age with a history of COPD and worse over the past week creasing shortness of breath chest congestion hypoxemia he was admitted with res piratory distress he is doing better discussed compliant with his medications at home and inhalers Allergies No Known Drug Allergies Allergy (Verified 05/15/21 01:03) Unknown Home Medications: Benzonatate [Tessalon Perle*] 100 mg PO TID PRN #30 cap 08/25/21 Gabapentin 300 mg PO BID #60 08/25/21 Ipratropium/Albuterol Sulfate [Iprat-Albut 0.5-3(2.5) mg/3 ml] 3 ml NEB Q6H #60 ampul.neb 08/25/21 Mometasone/Formoterol [Dulera 200 Mcg/5 Mcg Inhaler] 2 puff IH BID #1 inhaler 08/25/21 - Past Medical/Surgical History Diabetic: No -: COPD -: Tobacco abuse -: Hypertension -: 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 - Family History Sister Medical History: Cancer, Other (see notes) Notes: lupus Brother Medical History: Kidney disease, Other (see notes) Notes: lupus Mother Medical History: Other (see notes) Notes: copd - Social History Smoking Status: Current every day smoker Alcohol use: No CD- Drugs: No Caffeine use: No Place of Residence: Home Review of Systems 10-point ROS is otherwise unremarkable General: Weakness Respiratory: Cough, Shortness of Breath Physical Examination Temp Pulse Resp BP Pulse Ox 97.3 F 88 24 H 149/99 H 93 10/14/21 08:00 10/14/21 08:00 10/14/21 08:00 10/14/21 08:00 10/14/21 08:00 General: Alert, In no apparent distress, Oriented x3 Respiratory: Expiratory wheezes Cardiovascular: No edema, Regular rate/rhythm, Normal S1 S2 Gastrointestinal: Normal bowel sounds, Soft and benign Laboratory Data (last 24 hrs) 10/13/21 20:56: PT 13.6 H, INR 1.23 10/13/21 20:56: WBC 3.80 L, Hgb 16.4, Hct 48.4, Plt Count 108 L 10/13/21 20:56: Sodium 137, Potassium 4.0, BUN 13, Creatinine 0.63, Glucose 93, Magnesium 1.5 L D, Total Bilirubin 1.1 H, AST 39 H, ALT 33, Alkaline Phosphatase 80 - Problems (1) COPD exacerbation Current Visit: No Status: Acute Plan: Patient is 61 years of age well-known to me admitted with COPD exacerbation is compliant with Dulera patient is uninsured labs chemistries reviewed he does have oxygen at home continue with present medication possible discharge tomorrow on prednisone his bronchodilators add levofloxacin coughing up some productive phlegm possible discharge tomorrow currently stable still continues to smoke
[2021-10-14] MEDS: levoFLOXacin 500 MG TAB PO SCH (12:24)
[2021-10-14] MEDS: DULERA 200/5 (MOMETASONE/FORMOTEROL) INHALER IH SCH (20:37)
[2021-10-14] MEDS: predniSONE 20 MG TAB PO SCH (20:37)
[2021-10-15 04:19] LABS: Absolute Lymphocytes (CBC) 0.8 K/uL (0.7-4.9); Hematocrit 42.5 % (39.6-49.0); MPV 7.3 fL (7.6-11.3); RBC Red Blood Cell Count 4.56 M/uL (4.33-5.43)
[2021-10-15 06:20] LABS: BUN Blood Urea Nitrogen 16 mg/dL (7-18); Bicarbonate 28 mmol/L (21-32); Glucose Level 138 mg/dL (74-106); Potassium 4.6 mmol/L (3.5-5.1); Sodium Level 135 mmol/L (136-145)
[2021-10-15 08:27] VITALS: BP 138/71; TEMP 97.3
[2021-10-15] MEDS: GABAPENTIN 300 MG CAP PO SCH (09:45)
[2021-10-15] MEDS: ENOXAPARIN 40 MG/0.4 ML SQ SCH (09:45)
[2021-10-15] MEDS: predniSONE 20 MG TAB PO SCH (09:45)
[2021-10-15] MEDS: levoFLOXacin 500 MG TAB PO SCH (09:45)
[2021-10-15] MEDS: DULERA 200/5 (MOMETASONE/FORMOTEROL) INHALER IH SCH (09:47)
[2021-10-15 10:29] VITALS: O2SAT 94
--- NOTE | 2021-10-15 10:30 | P.DS ---
Admission Date: 10/13/21 Discharge Date: 10/15/21 Disposition: ROUTINE DISCHARGE Discharge Condition: GOOD Reason for Admission: COPD exacerbation Consultations: Pulmonology - Dr. Douglass Procedures: Problem List Acute on chronic hypoxic respiratory failure secondary to COPD with exacerbationon chronic home oxygen 2 L History of cirrhosis of liver secondary to hepatitis C with chronic ane kiera/thrombocytopenia Hypomagnesemia Tobacco abuse Brief History of Present Illness: 61-year-old male with history of COPD on chronic home oxygen, history of hepatitis presents emergency department for increasing shortness of breath. Patient reports that his saturations were in the 80s on his normal amount of home oxygen which is 2 L. Patient does not take chronic steroid therapy. Patient evaluated here in the emergency department was found to be mildly hypoxic on 2 L still with expiratory wheezing and mild dyspnea. This x-ray without acute findings pending official radiology interpretation. Patient was given Solu-Medrol, nebulizer treatment still with significant shortness of breath, expiratory wheezing. Will admit for further evaluation and management of acute on chronic hypoxic respiratory failure related to COPD with exacerbation. Hospital Course: Patient was found to have acute COPD exacerbation. Improved with steroids and nebulizers. Pulmonology was consulted. Patient improved and deemed stable for discharge home. continue medications as prescribed. Prescriptions for prednisone and levaquin on discharge. Follow up with Pulmonology / PCP within 1 week. Vital Signs/Physical Exam: Temp Pulse Resp BP Pulse Ox 97.3 F 66 20 138/71 93 10/15/21 08:00 10/15/21 08:00 10/15/21 08:00 10/15/21 08:00 10/15/21 08:00 Physical exam GEN: Alert, oriented HEENT: Normal conjunctiva, sclera anicteric CV: Regular rate and rhythm, no edema Pulm: mild b/l wheeze, non-labored respirations on 2L NC ABD: Soft, nontender, nondistended Neuro: Normal speech, normal affect Laboratory Data at Discharge: WBC 7.90 K/uL (4.3-10.9) D 10/15/21 03:59 Hgb 14.4 g/dL (13.6-17.9) 10/15/21 03:59 Hct 42.5 % (39.6-49.0) 10/15/21 03:59 Plt Count 110 K/uL (152-406) L 10/15/21 03:59 PT 13.6 SECONDS (9.5-12.5) H 10/13/21 20:56 INR 1.23 10/13/21 20:56 Sodium 135 mmol/L (136-145) L 10/15/21 03:59 Potassium 4.6 mmol/L (3.5-5.1) 10/15/21 03:59 BUN 16 mg/dL (7-18) 10/15/21 03:59 Creatinine 0.51 mg/dL (0.55-1.3) L 10/15/21 03:59 Glucose 138 mg/dL (74-106) H 10/15/21 03:59 Magnesium 2.0 mg/dL (1.8-2.4) 10/15/21 03:59 Total Bilirubin 1.0 mg/dL (0.2-1.0) 10/14/21 04:02 AST 34 U/L (15-37) 10/14/21 04:02 ALT 32 U/L (12-78) 10/14/21 04:02 Alkaline Phosphatase 72 U/L (45-117) 10/14/21 04:02 Home Medications: Benzonatate [Tessalon Perle*] 100 mg PO TID PRN #30 cap 08/25/21 Gabapentin 300 mg PO BID #60 08/25/21 Ipratropium/Albuterol Sulfate [Iprat-Albut 0.5-3(2.5) mg/3 ml] 3 ml NEB Q6H #60 ampul.neb 08/25/21 Mometasone/Formoterol [Dulera 200 Mcg/5 Mcg Inhaler] 2 puff IH BID #1 inhaler 08/25/21 levoFLOXacin [Levaquin*] 500 mg PO DAILY 7 Days #7 tab 10/15/21 predniSONE [Prednisone*] 20 mg PO SEECOM 7 Days #11 tab 10/15/21 New Medications: levoFLOXacin [Levaquin*] 500 mg PO DAILY 7 Days #7 tab predniSONE [Prednisone*] 20 mg PO SEECOM 7 Days #11 tab Physician Discharge Instructions: Patient was found to have acute COPD exacerbation. Improved with steroids and nebulizers. Pulmonology was consulted. Patient improved and deemed stable for discharge home. continue medications as prescribed. Prescriptions for prednisone and levaquin on discharge. Follow up with Pulmonology / PCP within 1 week. Time spent managing pt's care (in minutes): 45
== END 2021-10-15 11:30 | disposition home or self-care (01) | DRG 190 ==
LOC: ER 20:27 → ERHOLD 21:56 → 2ND 10-14 00:15
PROVIDERS: ADMIT Hospitalist; ATTEND Hospitalist
DX: J44.1 Chronic obstructive pulmonary disease with (acute) exacerbation (principal); J96.21 Acute and chronic respiratory failure with hypoxia; Z99.81 Dependence on supplemental oxygen; E83.42 Hypomagnesemia; D64.9 Anemia, unspecified; D69.6 Thrombocytopenia, unspecified; I10 Essential (primary) hypertension; F17.210 Nicotine dependence, cigarettes, uncomplicated; Z86.19 Personal history of other infectious and parasitic diseases; Z20.822 Contact with and (suspected) exposure to COVID-19
CPT/HCPCS: 0240U; 36415; 71045; 80048; 80053; 80076; 81003; 82805; 83735; 83880; 84484; 85025; 85610; 93005; 94640; 96365; 96366; 96375; 99285; J1650; J2920; J2930; J3475; J7512; J7605; J7606

== ENCOUNTER 2021-10-30 18:54 | Inpatient (IN) | payer SELFPAY ==
[2021-10-30] MEDS ORDERED: METHYLPREDNISOLONE 125 MG INJ ONE (20:04)
[2021-10-30] MEDS ORDERED: ALBUTEROL 2.5 MG/3 ML NEB SOL ONE (20:04)
[2021-10-30] MEDS ORDERED: IPRATROPIUM BROM 0.5MG/2.5ML ONE (20:04)
[2021-10-30 20:17] LABS: Protime INR 1.2
[2021-10-30 20:18] LABS: Absolute Lymphocytes (CBC) 1.3 K/uL (0.7-4.9); Hematocrit 43.7 % (39.6-49.0); Lymphocytes % 27.6 % (15.3-44.8); MPV 7.9 fL (7.6-11.3); RBC Red Blood Cell Count 4.72 M/uL (4.33-5.43)
[2021-10-30 20:35] LABS: Blood Morphology Comment NOT SEEN (NOT SEEN); Platelet Estimate DECR; White Blood Cell Scan OK (OK)
[2021-10-30 20:43] LABS: ALT/SGPT 35 U/L (12-78); Albumin 2.9 g/dL (3.4-5.0); Alkaline Phosphatase 67 U/L (45-117); BUN Blood Urea Nitrogen 14 mg/dL (7-18); Bicarbonate 27 mmol/L (21-32); Bilirubin Direct 0.3 mg/dL (0-0.2); Bilirubin Total 1.3 mg/dL (0.2-1.0); Glucose Level 88 mg/dL (74-106); NT PRO-BNP 949 pg/mL (<125); Protein, Total 6.8 g/dL (6.4-8.2); Sodium Level 136 mmol/L (136-145)
[2021-10-30 20:44] LABS: AST/SGOT 54 U/L (15-37); Magnesium 1.7 mg/dL (1.8-2.4); Potassium 4.2 mmol/L (3.5-5.1)
[2021-10-30 20:47] LABS: Troponin High Sensitivity 411.6 pg/mL (<58.9)
--- NOTE | 2021-10-30 21:05 | EDPHYS ---
Physician Documentation [facility] Name: Joseph Quach Age: 61 yrs Sex: Male : 1960 Arrival Date: 10/30/2021 Time: 18:55 Bed 7 Private MD: ED Physician Fabian Bourne HPI: 10/30 19:51 This 61 yrs old Male presents to ER via Wheelchair with complaints of Chest Pain, mh7 Shortness Of Breath. 19:51 The patient has shortness of breath at rest, with light activity. Onset: The mh7 symptoms/episode began/occurred 3 day(s) ago. Duration: The symptoms are continuous, and are steadily getting worse. The patient's shortness of breath is aggravated by coughing, light activity, is alleviated by nothing. Associated signs and symptoms: Pertinent positives: chest pain, productive cough, Pertinent negatives: diaphoresis, dizziness, fever, hemoptysis, loss of consciousness, nausea, numbness in extremities, visual changes, vomiting. Severity of symptoms: At their worst the symptoms were moderate yesterday, in the emergency department the symptoms are unchanged. The patient has experienced similar episodes in the past, chronically. 19:51 The patient has been recently been admitted at [facility], was mh7 discharged a couple of weeks ago. Historical: - Allergies: 19:06 NKDA; ab2 - PMHx: 19:06 COPD; Cirrhosis of liver; ab2 - PSHx: 19:06 hernia repair -1959; ab2 - Immunization history:: Adult Immunizations up to date. - Social history:: Smoking status: Patient reports the use of cigarette tobacco products, smokes one-half pack cigarettes per day. ROS: 19:51 Constitutional: Negative for fever, chills, and weight loss, Eyes: Negative for injury, mh7 pain, redness, and discharge, ENT: Negative for injury, pain, and discharge, Neck: Negative for injury, pain, and swelling, Abdomen/GI: Negative for abdominal pain, nausea, vomiting, diarrhea, and constipation, Back: Negative for injury and pain, : Negative for injury, bleeding, discharge, and swelling, MS/Extremity: Negative for injury and deformity, Skin: Negative for injury, rash, and discoloration, Neuro: Negative for headache, weakness, numbness, tingling, and seizure, Psych: Negative for depression, anxiety, suicide ideation, homicidal ideation, and hallucinations, Allergy/Immunology: Negative for hives, rash, and allergies, Endocrine: Negative for neck swelling, polydipsia, polyuria, polyphagia, and marked weight changes, Hematologic/Lymphatic: Negative for swollen nodes, abnormal bleeding, and unusual bruising. Exam: 19:15 ECG was reviewed by the Attending Physician. cp 19:51 Head/Face: Normocephalic, atraumatic. Eyes: Pupils equal round and reactive to light, mh7 extra-ocular motions intact. Lids and lashes normal. Conjunctiva and sclera are non-icteric and not injected. Cornea within normal limits. Periorbital areas with no swelling, redness, or edema. Neck: Trachea midline, no thyromegaly or masses palpated, and no cervical lymphadenopathy. Supple, full range of motion without nuchal rigidity, or vertebral point tenderness. No Meningismus. Chest/axilla: Normal chest wall appearance and motion. Nontender with no deformity. No lesions are appreciated. 19:51 Abdomen/GI: Soft, non-tender, with normal bowel sounds. No distension or tympany. No guarding or rebound. No evidence of tenderness throughout. Back: No spinal tenderness. No costovertebral tenderness. Full range of motion. Skin: Warm, dry with normal turgor. Normal color with no rashes, no lesions, and no evidence of cellulitis. MS/ Extremity: Pulses equal, no cyanosis. Neurovascular intact. Full, normal range of motion. Neuro: Awake and alert, GCS 15, oriented to person, place, time, and situation. Cranial nerves II-XII grossly intact. Motor strength 5/5 in all extremities. Sensory grossly intact. Cerebellar exam normal. Normal gait. Psych: Awake, alert, with orientation to person, place and time. Behavior, mood, and affect are within normal limits. 19:51 Constitutional: The patient appears in no acute distress, alert, awake, uncomfortable. 19:51 Cardiovascular: Rate: tachycardic, Rhythm: regular, Pulses: no pulse deficits are appreciated, Heart sounds: normal, normal S1and S2, Edema: is not appreciated, JVD: is not appreciated. 19:51 Respiratory: the patient does not display signs of respiratory distress, Respirations: prolonged exhalation, that is moderate, Breath sounds: rhonchi, that are moderate, are heard diffusely, Respiratory rate: 22 Vital Signs: 19:06 BP 114 / 79; Pulse 99; Resp 24; Temp 98.7(TE); Pulse Ox 90% 3 lpm ; Weight 102.06 kg; ab2 Height 5 ft. 11 in. (180.34 cm); Pain 10/10; 20:09 BP 100 / 75; Pulse 85; Resp 12 S; Pulse Ox 99% on 7% Nebulizer Mask; as6 21:00 BP 125 / 79; Pulse 108; Resp 28 S; Pulse Ox 91% on 3 lpm NC; as6 22:07 BP 97 / 74; Pulse 105; Resp 11 S; Pulse Ox 90% on 3 lpm NC; as6 23:00 BP 110 / 87; Pulse 109; Resp 17 S; Pulse Ox 91% on 3 lpm NC; as6 10/31 00:00 BP 116 / 93; Pulse 111; Resp 17 S; Pulse Ox 90% on 3 lpm NC; as6 01:09 BP 132 / 87; Pulse 112; Resp 17 S; Pulse Ox 96% 4 lpm ; as6 10/30 19:06 Body Mass Index 31.38 (102.06 kg, 180.34 cm) ab2 MDM: 10/30 21:02 Differential diagnosis: Anemia Anxiety Reaction asthma, Bronchitis CHF exacerbation, mh7 Chronic Obstructive Pulmonary Disease Myocardial Infarction pneumonia, Pneumothorax Psychogenic pulmonary edema, Pulmonary Embolism reactive airway disease. Data reviewed: vital signs, nurses notes, old medical records, lab test result(s), cardiac enzymes, CBC, electrolytes, EKG, radiologic studies, plain films. Data interpreted: Pulse oximetry: on 2L(s) per nasal canula, is 99 %. Interpretation: acceptable. Counseling: I had a detailed discussion with the patient and/or guardian regarding: the historical points, exam findings, and any diagnostic results supporting the discharge/admit diagnosis, the presence of at least one elevated blood pressure reading (>120/80) during this emergency department visit, lab results, radiology results, the need for further work-up and treatment in the hospital. Response to treatment: the patient's symptoms have markedly improved after treatment. 21:05 Patient medically screened. [facility] 10/30 19:40 Order name: Basic Metabolic Panel; Complete Time: 20:57 as10/30 19:40 Order name: CBC with Diff; Complete Time: 20:57 as10/30 19:40 Order name: LFT's; Complete Time: 20:57 10/30 19:40 Order name: Magnesium; Complete Time: 20:57 10/30 19:40 Order name: NT PRO-BNP; Complete Time: 20:57 as10/30 19:40 Order name: PT-INR; Complete Time: 20:57 10/30 19:40 Order name: Troponin HS; Complete Time: 20:57 10/30 19:40 Order name: XRAY Chest (1 view) as6 10/30 20:36 Order name: CBC Smear Scan; Complete Time: 20:57 EDMS 10/30 21:01 Order name: CT Chest For PE Angio; Complete Time: 21:59 mh7 10/30 21:02 Order name: CT Chest For PE Angio la1 10/30 21:23 Order name: COVID-19/FLU A+B (Document "Date of Onset" if Symptomatic); Complete Time: 00:51 10/30 19:11 Order name: EKG - Nurse/Tech; Complete Time: 19:57 ab2 10/30 19:40 Order name: EKG; Complete Time: 19:41 10/30 19:40 Order name: Cardiac monitoring; Complete Time: 19:57 10/30 19:40 Order name: EKG - Nurse/Tech; Complete Time: 19:57 10/30 19:40 Order name: IV Saline Lock; Complete Time: 19:57 10/30 19:40 Order name: Labs collected and sent; Complete Time: 19:57 10/30 19:40 Order name: O2 Per Protocol; Complete Time: 19:57 10/30 19:40 Order name: O2 Sat Monitoring; Complete Time: 19:57 EC:15 Rate is 102 beats/min. Rhythm is regular. SD interval is normal. QRS interval is cp normal. QT interval is normal. T waves are Inverted in leads aVL, aVR, V2, V3. Interpreted by me. Reviewed by me. Administered Medications: 20:06 Drug: Albuterol - atroVENT (ipratropium) (3:1) (2.5 mg - 0.5 mg) 3 ml Route: Nebulizer; 10/31 01:34 Follow up: Response: No adverse reaction 10/30 20:06 Drug: SOLU-Medrol (methylPrednisoLONE) 125 mg Route: IVP; Site: left hand; 10/31 01:34 Follow up: Response: No adverse reaction 10/30 22:04 Drug: Zofran (Ondansetron) 4 mg Route: IVP; Site: left hand; 10/31 01:34 Follow up: Response: No adverse reaction 10/30 22:04 Drug: morphine 4 mg Route: IVP; Site: left hand; 10/31 01:34 Follow up: Response: No adverse reaction; RASS: Alert and Calm (0) 10/30 22:08 CANCELLED (Duplicate Order): morphine 4 mg IVP once; RASS on ADMIN: Combtv4, Very as6 Agttd3, Agttd2, Rstlss1, AlertClm0, Drwsy-1, Lt Sdtn-2, Mod Sdtn-3, Dp Sdtn-4, UnArsble-5 22:08 CANCELLED (Duplicate Order): Zofran (Ondansetron) 4 mg IVP once; over 2 minutes as6 22:28 Drug: Aspirin Chewable Tablet 324 mg Route: PO; 10/31 01:34 Follow up: Response: No adverse reaction as6 00:52 Drug: morphine 2 mg Route: IVP; Site: left hand; 01:35 Follow up: Response: No adverse reaction; RASS: Alert and Calm (0) as6 01:05 Drug: Albuterol 2.5 mg Route: Inhalation; 01:35 Follow up: Response: No adverse reaction as6 Disposition Summary: 10/30/21 21:05 Hospitalization Ordered Hospitalization Status: Inpatient Admission 7 Provider: Brgiht Bowers Condition: Stable [facility] Problem: new [facility] Symptoms: have improved [facility] Bed/Room Type: Standard [facility] Location: Intensive Care Unit(10/30/21 23:57) cg Room Assignment: 6-(10/30/21 23:57) cg Diagnosis - Subsequent non-ST elevation (NSTEMI) myocardial infarction mh7 - COPD/ Chronic obstructive pulmonary disease with (acute) exacerbation mh7 Forms: - Medication Reconciliation Form [facility] - SBAR form [facility] Signatures: Dispatcher [employer] EDMS Percy Correia, MEDICAL ASSEMBLY-C MEDICAL ASSEMBLY-Cla1 Sohail Jensen PA PA cp Garcia, Cindy, RN RN cg Abel Velazquez RN RN jb4 Fabian Bourne MD MD 7 Kaity Sandhu 5 Lawson Dangelo RN RN as6 Ez Balderas ab2 Corrections: (The following items were deleted from the chart) 10/30 22:08 22:04 morphine 4 mg IVP once; RASS on ADMIN: Combtv4, Very Agttd3, Agttd2, Rstlss1, as6 AlertClm0, Drwsy-1, Lt Sdtn-2, Mod Sdtn-3, Dp Sdtn-4, UnArsble-5 ordered. la1 22:08 22:04 Zofran (Ondansetron) 4 mg IVP once; over 2 minutes ordered. [facility] as6 23:57 21:05 [place] [facility] [place] 21:05 [facility] [place]
--- NOTE | 2021-10-30 21:05 | ER ---
Nurse's Notes [facility] Name: Joseph Quach Age: 61 yrs Sex: Male : 1960 Arrival Date: 10/30/2021 Time: 18:55 Bed 7 Private MD: Diagnosis: Subsequent non-ST elevation (NSTEMI) myocardial infarction;COPD/ Chronic obstructive pulmonary disease with (acute) exacerbation Presentation: 10/30 19:06 Chief complaint: Patient states: "I was discharged from here a few days ago and im not ab2 getting better. Im still having chest pain and SOB. I keep coughing up junk.". Coronavirus screen: Vaccine status: Patient reports being unvaccinated. Client denies travel out of the [place] in the last 14 days. At this time, the client does not indicate any symptoms associated with coronavirus-19. Ebola Screen: Patient negative for fever greater than or equal to 101.5 degrees Fahrenheit, and additional compatible Ebola Virus Disease symptoms Patient denies exposure to infectious person. Patient denies travel to an Ebola-affected area in the 21 days before illness onset. No symptoms or risks identified at this time. Initial Sepsis Screen: Does the patient meet any 2 criteria? RR > 20 per min. HR > 90 bpm. Yes Does the patient have a suspected source of infection? No. Patient's initial sepsis screen is negative. Risk Assessment: Do you want to hurt yourself or someone else? Patient reports no desire to harm self or others. Onset of symptoms is unknown. 19:06 Method Of Arrival: Wheelchair ab2 19:06 Acuity: AISLINN 3 ab2 Triage Assessment: 19:10 General: Appears in no apparent distress. uncomfortable, Behavior is calm, cooperative, ab2 appropriate for age. Pain: Complains of pain in chest Pain does not radiate. Pain currently is 10 out of 10 on a pain scale. Neuro: Level of Consciousness is awake, alert, obeys commands, Oriented to person, place, time, situation, Appropriate for age Magnetizer are equal bilaterally. Cardiovascular: Reports chest pain, shortness of breath, Patient's skin is warm and dry. Respiratory: Airway is patent Respiratory effort is labored, Respiratory pattern is symmetrical. GI: No deficits noted. No signs and/or symptoms were reported involving the gastrointestinal system. Abdomen is round non-distended. Derm: Skin is fragile. Historical: - Allergies: 19:06 NKDA; ab2 - PMHx: 19:06 COPD; Cirrhosis of liver; ab2 - PSHx: 19:06 hernia repair -1960; ab2 - Immunization history:: Adult Immunizations up to date. - Social history:: Smoking status: Patient reports the use of cigarette tobacco products, smokes one-half pack cigarettes per day. Screenin:59 Abuse screen: Denies threats or abuse. Denies injuries from another. Nutritional as6 screening: No deficits noted. Tuberculosis screening: No symptoms or risk factors identified. Fall Risk None identified. Assessment: 19:57 General: Appears uncomfortable, Behavior is calm, cooperative. Pain: Complains of pain as6 in mid-sternal area Pain radiates to thoracic area Quality of pain is described as heavy, Pain began gradually. Neuro: Level of Consciousness is awake, alert, obeys commands, Oriented to person, place, time, situation, Reports headache. Cardiovascular: Capillary refill < 3 seconds Patient's skin is warm and dry. Respiratory: Airway is patent Trachea midline Respiratory effort is even, Respiratory pattern is regular, symmetrical, pt grunting Breath sounds are coarse bilaterally. 20:09 Respiratory: Reports shortness of breath cough that is productive, hacking. as6 Vital Signs: 19:06 BP 114 / 79; Pulse 99; Resp 24; Temp 98.7(TE); Pulse Ox 90% 3 lpm ; Weight 102.06 kg; ab2 Height 5 ft. 11 in. (180.34 cm); Pain 10/10; 20:09 BP 100 / 75; Pulse 85; Resp 12 S; Pulse Ox 99% on 7% Nebulizer Mask; as6 21:00 BP 125 / 79; Pulse 108; Resp 28 S; Pulse Ox 91% on 3 lpm NC; as6 22:07 BP 97 / 74; Pulse 105; Resp 11 S; Pulse Ox 90% on 3 lpm NC; as6 23:00 BP 110 / 87; Pulse 109; Resp 17 S; Pulse Ox 91% on 3 lpm NC; as6 0402 00:00 BP 116 / 93; Pulse 111; Resp 17 S; Pulse Ox 90% on 3 lpm NC; as6 01:09 BP 132 / 87; Pulse 112; Resp 17 S; Pulse Ox 96% 4 lpm ; as6 10/30 19:06 Body Mass Index 31.38 (102.06 kg, 180.34 cm) ab2 ED Course: 10/30 18:55 Patient arrived in ED. as 19:10 Triage completed. ab2 19:10 Arm band placed on left wrist. ab2 19:39 Fabian Bourne MD is Attending Physician. mh7 19:39 Lawson Dangelo, JEZ is Primary Nurse. as6 19:55 Inserted saline lock: 22 gauge in left hand, using aseptic technique. Blood collected. as6 19:55 Oxygen administration via nasal cannula \\T\\ 3L/min Response to oxygen therapy:. as6 19:57 Troponin HS Sent. as6 19:57 PT-INR Sent. as6 19:57 NT PRO-BNP Sent. as6 19:57 Magnesium Sent. as6 19:57 LFT's Sent. as6 19:57 CBC with Diff Sent. as6 19:57 Basic Metabolic Panel Sent. as6 19:59 Bed in low position. Call light in reach. Side rails up X2. alarm security or surveillance monitor on. Pulse as6 ox on. NIBP on. 20:37 XRAY Chest (1 view) In Process Unspecified. EDMS 21:04 Bright Bowers MD is Hospitalizing Provider. mh7 21:31 Inserted saline lock: 20 gauge in left forearm, using aseptic technique. jb4 21:36 CT Chest For PE Angio In Process Unspecified. EDMS Administered Medications: 20:06 Drug: Albuterol - atroVENT (ipratropium) (3:1) (2.5 mg - 0.5 mg) 3 ml Route: Nebulizer; 10/31 01:34 Follow up: Response: No adverse reaction 10/30 20:06 Drug: SOLU-Medrol (methylPrednisoLONE) 125 mg Route: IVP; Site: left hand; 10/31 01:34 Follow up: Response: No adverse reaction 10/30 22:04 Drug: Zofran (Ondansetron) 4 mg Route: IVP; Site: left hand; 10/31 01:34 Follow up: Response: No adverse reaction 10/30 22:04 Drug: morphine 4 mg Route: IVP; Site: left hand; 10/31 01:34 Follow up: Response: No adverse reaction; RASS: Alert and Calm (0) as6 10/30 22:08 CANCELLED (Duplicate Order): morphine 4 mg IVP once; RASS on ADMIN: Combtv4, Very as6 Agttd3, Agttd2, Rstlss1, AlertClm0, Drwsy-1, Lt Sdtn-2, Mod Sdtn-3, Dp Sdtn-4, UnArsble-5 22:08 CANCELLED (Duplicate Order): Zofran (Ondansetron) 4 mg IVP once; over 2 minutes as6 22:28 Drug: Aspirin Chewable Tablet 324 mg Route: PO; jb4 10/31 01:34 Follow up: Response: No adverse reaction as6 00:52 Drug: morphine 2 mg Route: IVP; Site: left hand; jb4 01:35 Follow up: Response: No adverse reaction; RASS: Alert and Calm (0) as6 01:05 Drug: Albuterol 2.5 mg Route: Inhalation; jb4 01:35 Follow up: Response: No adverse reaction as6 Outcome: 10/30 21:05 Decision to Hospitalize by Provider. [facility] 10/31 01:47 Patient left the ED. jb4 Signatures: Dispatcher [employer] Celsa Son James, RN RN jb4 Fabian Bourne MD MD 7 Kaity Sandhu 5 Lawson Dangelo RN RN as6 Ez Balderas
--- NOTE | 2021-10-30 21:44 | RAD REPORT ---
EXAM DESCRIPTION: CT - Chest For Pe Angio - 10/30/2021 9:34 pm CLINICAL HISTORY: Chest pain;SOB COMPARISON: Chest For Pe Angio dated 12/28/2020 TECHNIQUE: Dynamically enhanced 3 mm thick images of the chest were obtained during administration o f approximately 150mL Isovue 370 IV contrast. Coronal and oblique MIP reconstruction images were gene rated and reviewed. Exam utilizes a protocol to evaluate the pulmonary arterial tree. All CT scans are performed using dose optimization technique as appropriate and may include automated exposure control or mA/KV adjustment according to patient size. FINDINGS: No central, lobar or segmental branch pulmonary emboli identified. The subsegmental far pe ripheral branches are limited due to motion. Pulmonary emboli are not suspected. The aorta as imaged shows no acute or suspicious finding. No pericardial thickening or effusion. No infiltrate or mass in the lung parenchyma. No pleural effusion or pleural thickening. Numerous bul la and bleb noted throughout the lung parenchyma. No mediastinal or hilar suspicious masses. No chest wall masses or abnormal axillary lymphadenopathy. IMPRESSION: Exam has some limitation in the far peripheral branch assessment. However, no pulmonary emboli identifiable and none suspected. Emphysematous lung changes are present with no acute lung parenchymal finding.
[2021-10-30] MEDS ORDERED: ONDANSETRON 4 MG/2 ML VIAL ONE (22:03)
[2021-10-30] MEDS ORDERED: MORPHINE 4 MG/ML SYR ONE (22:03)
[2021-10-30] MEDS ORDERED: ASPIRIN 81 MG CHEWABLE TABLET ONE (22:28)
[2021-10-30 22:46] LABS: SARS-COV-2 RT PCR NEGATIVE (NEGATIVE)
--- NOTE | 2021-10-30 22:46 | P.HP ---
Certification for Inpatient Patient admitted to: Inpatient With expected LOS: >2 Midnights Patient will require the following post-hospital care: None Practitioner: I am a practitioner with admitting privileges, knowledge of patient current condition, hospital course, and medical plan of care. Services: Services provided to patient in accordance with Admission requirements found in Title 42 Section 412.3 of the Code of Federal Regulations Patient History Date of Service: 10/30/21 Reason for admission: NSTEMI History of Present Illness: 61-year-old male with history of COPD, cirrhosis of the liver secondary to history of hepatitis C presents emergency department for chest pain. Patient reports that has been having chest pain on and off for last few days described as sharp radiating to the back associated with deep breaths. Patient was evaluated emergency department had CT PE protocol which was negative for pulmonary embolism or other acute findings his initial troponin was 411.6 BNP 949 EKG did not show any changes from previous. Patient does have low platelet count/thrombocytopenia with platelets of 69 I discussed the case with cardiology recommendation is for aspirin currently rather than full dose anticoagulation given thrombocytopenia although if his troponin were to have severe elevations throughout the evening would recommend heparin drip. Will admit for further evaluation and management of NSTEMI. Allergies No Known Drug Allergies Allergy (Verified 05/15/21 01:03) Unknown Home Medications: Benzonatate [Tessalon Perle*] 100 mg PO TID PRN #30 cap 08/25/21 Gabapentin 300 mg PO BID #60 08/25/21 Ipratropium/Albuterol Sulfate [Iprat-Albut 0.5-3(2.5) mg/3 ml] 3 ml NEB Q6H #60 ampul.neb 08/25/21 Mometasone/Formoterol [Dulera 200 Mcg/5 Mcg Inhaler] 2 puff IH BID #1 inhaler 08/25/21 levoFLOXacin [Levaquin*] 500 mg PO DAILY 7 Days #7 tab 10/15/21 predniSONE [Prednisone*] 20 mg PO SEECOM 7 Days #11 tab 10/15/21 - Past Medical/Surgical History Diabetic: No -: COPD -: Tobacco abuse -: Hypertension -: 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 - Family History Sister -: Cancer, Other (see notes) Notes: lupus Brother -: Kidney disease, Other (see notes) Notes: lupus Mother -: Other (see notes) Notes: copd - Social History Smoking Status: Current some day smoker Alcohol use: No CD- Drugs: No Caffeine use: No Place of Residence: Home Review of Systems 10-point ROS is otherwise unremarkable Respiratory: Cough, SOB with Excertion Cardiovascular: Chest Pain Physical Examination - Physical Exam General: Alert, In no apparent distress, Oriented x3 HEENT: Atraumatic, PERRLA, Mucous membr. moist/pink, EOMI, Sclerae nonicteric Neck: Supple, 2+ carotid pulse no bruit, No LAD, Without JVD or thyroid abnormality Respiratory: Diminished, Expiratory wheezes Cardiovascular: Regular rate/rhythm, Normal S1 S2 Gastrointestinal: Normal bowel sounds, No tenderness Musculoskeletal: No tenderness Integumentary: No rashes Neurological: Normal speech, Normal strength at 5/5 x4 extr, Normal tone, Normal affect - Studies Laboratory Data (last 24 hrs) 10/30/21 19:54: PT 13.2 H, INR 1.20 10/30/21 19:54: WBC 4.7, Hgb 14.8, Hct 43.7, Plt Count 69 L 10/30/21 19:54: Sodium 136, Potassium 4.2, BUN 14, Creatinine 0.51 L, Glucose 88, Magnesium 1.7 L, Total Bilirubin 1.3 H, AST 54 H, ALT 35, Alkaline Phosphatase 67 Assessment and Plan - Plan Assessment: NSTEMI COPD on home oxygen Cirrhosis of liver secondary to hepatitis C with thrombocytopenia Plan: NSTEMI: Trend troponins, monitor on telemetry, aspirin, statin, beta-jeanette therapy. Cardiology consulted case discussed given thrombocytopenia will hold off on full dose anticoagulation unless there are marked elevation in the troponin throughout the evening. COPD on home oxygen: Similar to baseline as needed nebulizer treatments continue medications supplemental oxygen as needed. Cirrhosis of liver secondary to hepatitis C with thrombocytopenia: Continue as above hold off on anticoagulation unless troponin rises sharply. DVT PPX: SCD Code status: Full Discharge Plan: Home Plan to discharge in: 72 Hours - Advance Directives Does patient have a Living Will: No Does patient have a Durable POA for Healthcare: No - Code Status/Comfort Care Code Status Assessed: Yes (Full code) Critical Care: No Time Spent Managing Pts Care (In Minutes): 55
[2021-10-31] MEDS ORDERED: ALBUTEROL 2.5 MG/3 ML NEB SOL NEB PRN (00:31)
[2021-10-31] MEDS ORDERED: MORPHINE 2 MG/ML SYR IV PRN (00:31)
[2021-10-31] MEDS ORDERED: ONDANSETRON 4 MG/2 ML VIAL IV PRN (00:31)
[2021-10-31] MEDS ORDERED: IPRATROPIUM BROM 0.5MG/2.5ML NEB PRN (00:31)
[2021-10-31] MEDS ORDERED: MORPHINE 2 MG/ML SYR ONE (00:50)
[2021-10-31] MEDS ORDERED: ALBUTEROL 2.5 MG/3 ML NEB SOL ONE (01:01)
[2021-10-31 02:46] VITALS: BMI 30.7
[2021-10-31 03:51] LABS: Absolute Lymphocytes (CBC) 0.3 K/uL (0.7-4.9); Hematocrit 43.3 % (39.6-49.0); Lymphocytes % 10.2 % (15.3-44.8); MPV 8.4 fL (7.6-11.3); RBC Red Blood Cell Count 4.63 M/uL (4.33-5.43)
[2021-10-31 04:09] LABS: ALT/SGPT 36 U/L (12-78); AST/SGOT 40 U/L (15-37); Albumin 2.8 g/dL (3.4-5.0); Alkaline Phosphatase 65 U/L (45-117); BUN Blood Urea Nitrogen 15 mg/dL (7-18); Bicarbonate 28 mmol/L (21-32); Glucose Level 186 mg/dL (74-106); HDL Cholesterol 46 mg/dL (40-60); LDL Cholesterol, Calculated 92 (<130); Potassium 4.2 mmol/L (3.5-5.1); Protein, Total 6.8 g/dL (6.4-8.2); Sodium Level 135 mmol/L (136-145)
[2021-10-31] MEDS: METOPROLOL TAR 25 MG TAB PO SCH ×2 (06:17→17:04)
[2021-10-31 06:23] LABS: Urine Appearance Clear (Clear); Urine Bilirubin Negative (Negative); Urine Blood Trace-intact (Negative); Urine Color DK YELLOW (Yellow); Urine Glucose Negative (Negative); Urine Microscopic Reflex ORDER UMIC; Urine Protein Negative (Negative); Urine Specific Gravity 1.015 (1.005-1.030); Urine pH 6.5 (5.0-7.0)
[2021-10-31 06:33] LABS: Urine Bacteria NONE SEEN /HPF (NONE SEEN); Urine RBC <5 /HPF (NONE SEEN)
[2021-10-31] MEDS ORDERED: INFLUENZA VACCINE (for 6+ mo) 0.5 ML DOSE IMVAC ONE (08:00)
[2021-10-31] MEDS: ASPIRIN EC 81 MG TAB PO SCH (08:34)
--- NOTE | 2021-10-31 08:42 | RAD REPORT ---
EXAM DESCRIPTION: RAD - Chest Single View - 10/30/2021 8:35 pm CLINICAL HISTORY: CHEST PAIN COMPARISON: Portable 10/13/2021 TECHNIQUE: AP portable chest image was obtained 10/30/2021 8:35 pm . FINDINGS: No peripheral mass or consolidation. Interstitial markings are prominent but not clearly d ifferent from prior study. Heart and vasculature are normal. No measurable pleural effusion and no pneumothorax. No acute bony abnormality seen. No acute aortic findings suspected. IMPRESSION: No acute cardiopulmonary process. Mild chronic interstitial lung pattern has not changed.
[2021-10-31] MEDS ORDERED: ENOXAPARIN 100 MG/ML SYR SQ SCH (10:02)
--- NOTE | 2021-10-31 10:03 | P.PN ---
Subjective Date of Service: 10/31/21 Chief Complaint: Chest pain non-STEMI Patient is 61 years of age multiple medical problems COPD cirrhosis it again with chest pain non-STEMI no evidence of pulmonary emboli still having some chest discomfort discharged home on steroids and antibiotics Review of Systems General: Weakness Respiratory: Shortness of Breath Cardiovascular: Chest Pain Physical Examination - Vital Signs Temperature: 97.2 F Blood Pressure: 120/90 Pulse: 73 Respirations: 14 Pulse Ox (%): 94 - Physical Exam General: Alert, In no apparent distress, Mild distress Respiratory: Clear to auscultation bilaterally, Normal air movement Cardiovascular: No edema, Regular rate/rhythm, Normal S1 S2 Gastrointestinal: Normal bowel sounds, Soft and benign, No ascites Musculoskeletal: No swelling - Studies Laboratory Data (last 24 hrs) 10/30/21 19:54: PT 13.2 H, INR 1.20 10/30/21 19:54: WBC 4.7, Hgb 14.8, Hct 43.7, Plt Count 69 L 10/30/21 19:54: Sodium 136, Potassium 4.2, BUN 14, Creatinine 0.51 L, Glucose 88, Magnesium 1.7 L, Total Bilirubin 1.3 H, AST 54 H, ALT 35, Alkaline Phosphatase 67 Assessment And Plan - Current Problems (Diagnosis) (1) Non-STEMI (non-ST elevated myocardial infarction) Current Visit: Yes Status: Acute - Plan Patient admitted with elevated troponin chest pain non-STEMI no evidence of pulmonary emboli I will order a 2D echo continue with beta-blockers fully anticoagulated continue with bronchodilators steroids vital signs satisfactory cardiology consultation
[2021-10-31] MEDS: predniSONE 20 MG TAB PO SCH ×2 (11:42→20:45)
[2021-10-31] MEDS: IPRATROPIUM BROM 0.5MG/2.5ML NEB SCH ×2 (14:30→19:55)
--- NOTE | 2021-10-31 16:35 | CON ---
Date of Consultation: 10/31/2021 Reason For Consultation: Elevated troponin. History Of Present Illness: This is a 61-year-old male, history of COPD, liver cirrhosis, hepatitis C, presented to the emergency room with chest pain, cough, shortness of breath and wheezing. Has BACK TACKER D with frequent hospitalization due to exacerbation and never had elevated troponin; however, at this time, he tested positive for influenza A, seen by bedside and he is feeling well. No further chest pain. Past Medical History: As outlined above in the HPI. Medications: Refer to medication reconciliation sheet for detailed list. Allergies: NO KNOWN DRUG ALLERGIES. Family History: No premature coronary artery disease or cancer. Social History: Smokes daily. Does not drink, use any drugs. Review of Systems: All systems reviewed and they were negative except for what mentioned in the HPI. Physical Examination: Vital Signs: Reviewed. Head and Neck: Pupils are equal, reactive to light. Intact eye movements. No JVD. No cervical lym phadenopathy. Neck is supple. Thyroid is not enlarged. Lungs: Clear to auscultation bilaterally. No rhonchi, rales, or crackles. No accessory muscle use. He has wheezing bilaterally. Heart: Regular rate and rhythm. No extra sounds. Abdomen: Soft, nontender. Bowel sounds positive. No organomegaly. No masses or hernia. No rigidi ty or rebound. Extremities: No edema, clubbing, or cyanosis. Intact pulses. Skin: No rash noted. Neurologic: Alert, awake, oriented x3. No acute focal deficits appreciated. Investigations: Hemoglobin 14.5, platelets are 70,000. Troponin . Positive for influenza A. Creatinine is 0.74. Assessment And Plan: Elevated troponin. This is likely demand ischemia. The patient, however, has significant risk factors for coronary artery disease including heavy smoking and age. Given the fact that his platelets are low and troponin is mildly elevated, I will discontinue full dose of Lovenox and just put him on deep vein thrombosis prophylaxis dose, carefully monitor the platelets, and plan for echocardiogram and an exercise nuclear stress test once his condition is more stable to do that. In summary, ischemia workup is indicated; however, I do not believe that this is an acute coronary s yndrome likely the troponin elevation is due to demand. Thank you for the consult. /ZENAL Voice ID: [id number] Report ID: [id number]
[2021-10-31] MEDS ORDERED: ENOXAPARIN 40 MG/0.4 ML SQ SCH (17:00)
[2021-10-31] MEDS: OSELTAMIVIR 75 MG CAP PO SCH ×2 (17:05→21:00)
[2021-10-31] MEDS: MORPHINE 4 MG/ML SYR IV PRN ×2 (17:22→22:05)
[2021-10-31] MEDS: GABAPENTIN 300 MG CAP PO SCH (20:45)
[2021-10-31] MEDS: ATORVASTATIN 40 MG TAB PO SCH (20:45)
[2021-10-31] MEDS: APIXABAN 2.5 MG TABLET PO SCH (20:45)
[2021-11-01] MEDS: IPRATROPIUM BROM 0.5MG/2.5ML NEB SCH ×4 (01:15→20:15)
[2021-11-01 06:03] LABS: Absolute Lymphocytes (CBC) 0.8 K/uL (0.7-4.9); Hematocrit 40.6 % (39.6-49.0); Lymphocytes % 9.5 % (15.3-44.8); MPV 8.6 fL (7.6-11.3); RBC Red Blood Cell Count 4.37 M/uL (4.33-5.43)
[2021-11-01 06:18] LABS: ALT/SGPT 33 U/L (12-78); AST/SGOT 28 U/L (15-37); Albumin 2.6 g/dL (3.4-5.0); Alkaline Phosphatase 57 U/L (45-117); BUN Blood Urea Nitrogen 20 mg/dL (7-18); Bicarbonate 30 mmol/L (21-32); Bilirubin Total 0.8 mg/dL (0.2-1.0); Glucose Level 132 mg/dL (74-106); Potassium 5.1 mmol/L (3.5-5.1); Protein, Total 6.1 g/dL (6.4-8.2); Sodium Level 136 mmol/L (136-145)
[2021-11-01] MEDS: METOPROLOL TAR 25 MG TAB PO SCH ×2 (06:44→17:11)
[2021-11-01] MEDS: APIXABAN 2.5 MG TABLET PO SCH ×2 (08:46→20:38)
[2021-11-01] MEDS: OSELTAMIVIR 75 MG CAP PO SCH ×2 (08:46→20:39)
[2021-11-01] MEDS: ASPIRIN EC 81 MG TAB PO SCH (08:46)
[2021-11-01] MEDS: GABAPENTIN 300 MG CAP PO SCH ×2 (08:46→20:39)
[2021-11-01] MEDS: predniSONE 20 MG TAB PO SCH ×2 (08:47→20:38)
--- NOTE | 2021-11-01 12:58 | P.PN ---
Subjective Date of Service: 11/01/21 Chief Complaint: Chest pain non-STEMI Patient is doing better chest pain has improved notes of breath is also improved is still wheezing Review of Systems General: Weakness Respiratory: Shortness of Breath Physical Examination - Vital Signs Temperature: 97.5 F Blood Pressure: 122/82 Pulse: 67 Respirations: 18 Pulse Ox (%): 93 - Physical Exam General: Alert, In no apparent distress, Mild distress Respiratory: Expiratory wheezes Cardiovascular: No edema, Normal pulses Assessment And Plan - Current Problems (Diagnosis) (1) Non-STEMI (non-ST elevated myocardial infarction) Current Visit: Yes Status: Acute - Plan Patient is doing better and STEMI seen by cardiology recent history of influenza A which could be contributing to still wheezing troponins are declining no change in present medication dated count is stable possible discharge in 1 to 2 days stable outpatient stress test seen by cardiology
[2021-11-01] MEDS: NITROGLYCERIN 0.4 MG/TAB SL PRN ×2 (14:56→15:01)
[2021-11-01] MEDS: MORPHINE 4 MG/ML SYR IV PRN (15:05)
--- NOTE | 2021-11-01 18:51 | PN ---
Date of Progress Note: 11/01/2021 Subjective: The patient is still having chest pains, but mainly with coughing and inspiration. Review of Systems: No nausea, vomiting, or diarrhea. No dysuria, polyuria, or urgency. All other systems reviewed are negative. Physical Examination: Vital Signs: Reviewed. Head and Neck: Pupils are equal, reactive to light. Intact eye movements. No JVD. No cervical lym phadenopathy. Neck is supple. Thyroid is not enlarged. Lungs: Decreased breathing sounds with diffuse wheezing. Heart: Regular. No extra sounds. Abdomen: Soft, nontender. Bowel sounds positive. No organomegaly. No masses or hernia. No rigidi ty or rebound. Extremities: No edema, clubbing, or cyanosis. Intact pulses. Skin: No rash noted. Neurologic: Alert, awake. No acute focal deficits appreciated. Investigations: Labs were reviewed. Assessment And Recommendations: Chest pain with elevated troponin. I believe this troponin leak is due to the influenza; however, he continues to have chest pain, which sounds to be pleuritic in natur e; however, I will repeat a stat troponin now if there is substantial change and then we might need t o consider coronary angiogram. If the troponin has not changed, then we will keep the original plan with a stress test once the patient's condition and lung status is more stable. Continue aspirin and monitor on telemetry and please obtain an echocardiogram. /NIGHAT Voice ID: [id number] Report ID: [id number]
[2021-11-01] MEDS: ARFORMOTEROL TARTRATE 15 MCG/2 ML VIAL.NEB NEB SCH (20:15)
[2021-11-01] MEDS: ATORVASTATIN 40 MG TAB PO SCH (20:39)
[2021-11-02] MEDS: NITROGLYCERIN 0.4 MG/TAB SL PRN (01:46)
[2021-11-02] MEDS: MORPHINE 4 MG/ML SYR IV PRN (01:48)
[2021-11-02] MEDS: IPRATROPIUM BROM 0.5MG/2.5ML NEB SCH ×4 (01:57→20:30)
[2021-11-02 04:13] LABS: Absolute Lymphocytes (CBC) 0.7 K/uL (0.7-4.9); Hematocrit 41.9 % (39.6-49.0); Lymphocytes % 10.9 % (15.3-44.8); MPV 8.4 fL (7.6-11.3); RBC Red Blood Cell Count 4.48 M/uL (4.33-5.43)
[2021-11-02 04:30] LABS: ALT/SGPT 33 U/L (12-78); AST/SGOT 33 U/L (15-37); Albumin 2.6 g/dL (3.4-5.0); Alkaline Phosphatase 54 U/L (45-117); BUN Blood Urea Nitrogen 23 mg/dL (7-18); Bicarbonate 31 mmol/L (21-32); Glucose Level 119 mg/dL (74-106); Potassium 5.1 mmol/L (3.5-5.1); Sodium Level 138 mmol/L (136-145)
[2021-11-02] MEDS: ARFORMOTEROL TARTRATE 15 MCG/2 ML VIAL.NEB NEB SCH ×2 (09:30→20:30)
[2021-11-02] MEDS: METOPROLOL TAR 25 MG TAB PO SCH ×2 (10:04→18:50)
[2021-11-02] MEDS: OSELTAMIVIR 75 MG CAP PO SCH ×2 (10:04→22:34)
[2021-11-02] MEDS: APIXABAN 2.5 MG TABLET PO SCH ×2 (10:05→22:34)
[2021-11-02] MEDS: predniSONE 20 MG TAB PO SCH ×2 (10:05→22:34)
[2021-11-02] MEDS: GABAPENTIN 300 MG CAP PO SCH ×2 (10:05→22:34)
[2021-11-02] MEDS: ASPIRIN EC 81 MG TAB PO SCH (10:05)
--- NOTE | 2021-11-02 11:18 | EKG ---
Test Date: 2021-10-30 Test Time: 19:08:55 Vocational Nursing Instructor: RILEY MEASUREMENT RESULTS: Intervals: Rate: 102 NV: 128 QRSD: 84 QT: 344 QTc: 448 [place]: P: 81 NV: 128 QRS: 90 T: 75 INTERPRETIVE STATEMENTS: Sinus tachycardia Rightward axis T wave abnormality, consider anterior ischemia Abnormal ECG Compared to ECG 10/13/2021 19:44:06 Right-axis deviation now present T-wave abnormality now present Possible ischemia now present Electronically Signed On 11-02-21 11:13:02 CDT by Manuel Joya
[2021-11-02] MEDS: ATORVASTATIN 40 MG TAB PO SCH (22:34)
[2021-11-03] MEDS: IPRATROPIUM BROM 0.5MG/2.5ML NEB SCH ×3 (01:25→14:37)
[2021-11-03 06:35] LABS: Arterial Blood Carboxyhemoglob 1.2 % (0-1.5); Blood Gas Oxyhemoglobin 91.5 % (94-97); Blood O2 Saturation 93.7 % (92-98.5)
[2021-11-03] MEDS: METOPROLOL TAR 25 MG TAB PO SCH (06:45)
--- NOTE | 2021-11-03 08:34 | EKG ---
Test Date: 2021-11-01 Test Time: 14:56:11 Planting Material Unloader: KRISSY MEASUREMENT RESULTS: Intervals: Rate: 78 RI: 130 QRSD: 96 QT: 368 QTc: 419 [place]: P: 76 RI: 130 QRS: 68 T: 46 INTERPRETIVE STATEMENTS: Normal sinus rhythm T wave abnormality, consider anterior ischemia Abnormal ECG Compared to ECG 10/30/2021 19:08:55 Sinus tachycardia no longer present Right-axis deviation no longer present T-wave abnormality still present Possible ischemia still present Electronically Signed On 11-03-21 08:28:25 CDT by Manuel Joya
[2021-11-03] MEDS: ARFORMOTEROL TARTRATE 15 MCG/2 ML VIAL.NEB NEB SCH (08:44)
[2021-11-03] MEDS: ASPIRIN EC 81 MG TAB PO SCH (09:23)
[2021-11-03] MEDS: OSELTAMIVIR 75 MG CAP PO SCH (09:23)
[2021-11-03] MEDS: predniSONE 20 MG TAB PO SCH (09:23)
[2021-11-03] MEDS: GABAPENTIN 300 MG CAP PO SCH (09:23)
[2021-11-03] MEDS: APIXABAN 2.5 MG TABLET PO SCH (09:23)
[2021-11-03 09:40] VITALS: O2SAT 94
--- NOTE | 2021-11-03 10:11 | ECHO ---
HEIGHT: 5 ft 11 in WEIGHT: 220 lb 0 oz DATE OF STUDY: 11/02/[address]: Manuel Joya MD 2-DIMENSIONAL: YES M.MODE: YES DOPPLER: YES COLOR FLOW: YES TDS: NO PORTABLE: NO DEFINITY: NO BUBBLE STUDY: NO DIAGNOSIS: NSTEMI CARDIAC HISTORY: CATHERIZATION: SURGERY: PROSTHETIC VALVE: PACEMAKER: MEASUREMENTS (cm) DIASTOLIC (NORMALS) SYSTOLIC (NORMALS) IVSd 1.0 (0.6-1.2) LA Diam 3.7 (1.9-4.0) LVEF 50% LVIDd 4.4 (3.5-5.7) LVIDs 3.3 (2.0-3.5) %FS 25% LVPWd 1.1 (0.6-1.2) Ao Diam 2.9 (2.0-3.7) 2 DIMENSIONAL ASSESSMENT: RIGHT ATRIUM: NORMAL LEFT ATRIUM: NORMAL RIGHT VENTRICLE: NORMAL LEFT VENTRICLE: NORMAL TRICUSPID VALVE: NORMAL MITRAL VALVE: NORMAL PULMONIC VALVE: NORMAL AORTIC VALVE: NORMAL PERICARDIAL EFFUSION: NONE AORTIC ROOT: NORMAL LEFT VENTRICULAR WALL MOTION: NORMAL. DOPPLER/COLOR FLOW: MILD TRICUSPID REGURGITATION. COMMENTS: MILD TRICUSPID REGURGITATION - RIGHT VENTRICULAR SYSTOLIC PRESSURE 47mmHg. NORMAL LEFT VENTRICULAR SIZE AND FUNCTION. NO WALL MOTION ABNORMALITY. NO EFFUSION. TECHNOLOGIST: ENRIQUETA ILGESIAS
[2021-11-03 14:28] VITALS: BP 158/81; TEMP 97.8
--- NOTE | 2021-11-05 16:26 | PN ---
Date of Progress Note: 11/02/2021 Mr. Sellers had come in with elevated troponin, admitted to Dr. Clark. Has been followed by Dr. Jaramillo . Has been pain free. No nausea, vomiting, diaphoresis. His vital signs are stable. He is afebril e. Echocardiogram is pending for today, 11/02/2021. I think he can go home after the echo. If the echo is normal, to have an outpatient Lexiscan and see us in the office. JAZIEL/NIGHAT Voice ID: [id number] Report ID: [id number]
== END 2021-11-03 17:30 | disposition home or self-care (01) | DRG 280 ==
LOC: ER 18:54 → ERHOLD 22:18 → 3RD-ICU 23:59 → 2ND 10-31 21:57
PROVIDERS: ADMIT Internal Medicine Sleep Medicine; ATTEND Hospitalist
DX: I21.4 Non-ST elevation (NSTEMI) myocardial infarction (principal); J10.00 Influenza due to other identified influenza virus with unspecified type of pneumonia; J44.1 Chronic obstructive pulmonary disease with (acute) exacerbation; I10 Essential (primary) hypertension; K74.60 Unspecified cirrhosis of liver; D69.6 Thrombocytopenia, unspecified; F17.210 Nicotine dependence, cigarettes, uncomplicated; B19.20 Unspecified viral hepatitis C without hepatic coma; Z79.82 Long term (current) use of aspirin; Z79.52 Long term (current) use of systemic steroids; Z79.899 Other long term (current) drug therapy; Z99.81 Dependence on supplemental oxygen
CPT/HCPCS: 0240U; 36415; 71045; 71275; 80048; 80053; 80061; 80076; 81003; 81015; 82805; 83735; 83880; 84484; 85025; 85610; 93005; 93306; 94640; 96374; 96375; 99285; J2270; J2405; J2930; J7512; J7605; Q9967

== ENCOUNTER 2021-11-19 06:54 | Inpatient (IN) | payer OTHER, SELFPAY ==
--- OUTSIDE RECORDS SUMMARY | 2021-11-19 06:58 | XMS REPORT | Continuity of Care Document ---
:1960 Author Organization [facility] t Address [address] [place] [address] Care Team Providers Name Role Phone PHONG Primary Care Physician Unavailable Stuart STORY Attending Clinician Unavailable PONCHO Attending Clinician Unavailable Oren PAC, S Attending Clinician America STEELE Attending Clinician Poncho STEELE Attending Clinician PONCHO Admitting Clinician Unavailable Poncho STEELE Admitting Clinician Payers Payer Name Policy Type Policy Number Effective Date Expiration Date S ource Problems Condition Condition Condition Status Onset Resolution Last Treating Co mments Source Name Details Category Date Date Treatment Clinician Date COPD with COPD with Disease Active Uni vers acute acute 4-07 [place] [facility] Obesity Obesity Disease Active Univers (BMI (BMI 4-06 ity of 30-39.9) 30-39.9) 00:00: [address] COPD COPD Disease Active Univers exacerbati exacerbati 4-06 it y of on on 00:: [address] Troponin I Troponin I Disease Active U nivers above above 4-06 ity of reference reference 00:00: Ray s range range [address] [place] [address] Cigarette Cigarette Disease Active 2022-0 Uni vers smoker smoker 4-06 ity of 00:00: [address] Chest pain Chest pain Disease Active U nivers 4-05 ity of 00:00: [address] Allergies, Adverse Reactions, Alerts Allergy Allergy Status Severity Reaction(s) Onset Inactive Treating Comm ents Source Name Type Date Date Clinician Seafood/ Propensi Active Rash 2018-08 Univer s Fish ty to 2-17 ity of adverse 00:00: [place] reaction [address] [place] [address] SEAFOOD/ Food Active Rash 2018-08 Univers FISH 2-17 ity of 00:00: [address] Social History Social Habit Start Date Stop Date Quantity Comments Source Exposure to Not sure [facility] SARS-CoV-2 [facility] (event) [place] Alcohol intake 2021-11-04 2021-11-04 Ex-drinker [facility] 00:00:00 00:00:00 (finding) [facility] Education 2021-11-04 2021-11-04 9 University 00:00:00 00:00:00 [facility] Tobacco use and 2019-05-29 2019-05-29 Current user Univers ity of exposure 00:00:00 00:00:00 [facility] History of 2017-05-29 Smoker University of tobacco use 00:00:00 [facility] Sex Ass[birth year] Universit y of 00:00:00 00:00:00 [facility] Smoking Status Start Date Stop Date Source Former smoker 2019-05-29 00:00:00 2019-05-29 00:00:00 Universi ty of [facility] Medications Ordered Filled Start Stop Current Ordering Indication Dosage Frequency Signature Comments Components Source Medication Medication Date Date Medication? Clinician (SIG) Name Name carol 2021- Yes 500mg 500 mg, U nivers n 11-06 04-09 Oral, ity of (ZITHROMAX) 13:00: 00:59 [place] 1 [place] 500 00 :00 dose, On Medic al mg 11/06/21 Branch at 0800, Routine
Reason for Anti-Infec tive: Empiric Therapy for Suspected Infection< br>Empiric Therapy Site: Respirator y
Durat ion of therapy: 72 hours aspirin 2021- Yes [id number] 325mg Take 1 U nivers E.C. 325 mg 11-06-09 tablet by it y of EC tablet 00:00: 04:59 mouth [place] 00 :00 daily with Medical breakfast [place] for 30 days. cholecalcif 2021- Yes [id number] 2000U Take 2 Univers tere, 4- 05-09 tablets by ity of vitamin D3, 00:00: 04:[place] 25 mcg 00 :00 daily for Medical (,000 30 days. Branch unit) tablet metoprolol 2021- Yes [id number] 25mg Take 1 Univers succinate 11-06 05-09 tablet by ity of XL 25 mg 24 00:00: 04:59 [place] hr tablet 00 :00 daily for Medic al 30 days. Branch aspirin 2021- Yes [id number] 325mg Take 1 U nivers E.C. 325 mg 11-06-09 tablet by it y of EC tablet 00:00: 04:59 mouth [place] 00 :00 daily with Medical breakfast [place] for 30 days. cholecalcif 2021- Yes [id number] 2000U Take 2 Univers tere, 11-06-09 tablets by ity of vitamin D3, 00:00: 04:59 [place] 25 mcg 00 :00 daily for Medical (000 30 days. Branch unit) tablet metoprolol 2021- Yes [id number] 25mg Take 1 Univers succinate 11-06 05-09 tablet by ity of XL 25 mg 24 00:00: 04:59 [place] tablet 00 :00 daily for Medic al 30 days. Branch predniSONE 2021- Yes [id number] 50mg Take 1 Univers 50 mg 11-06-12 tablet by ity of tablet 00:00: 04:59 mouth [place] 00 :00 every day Medical at 1200 Branch (noon) for 3 days. predniSONE 2021- Yes [id number] 50mg Take 1 Univers 50 mg 4-08 04-12 tablet by ity of tablet 00:00: 04:59 mouth [place] 00 :00 every day Medical at 1200 Branch (noon) for 3 days. mometasone/ Yes Inhale. Uni vers formoterol 11-05 ity of (DULERA 18:48: [place] INHALE) 11 Medical Branch mometasone/ Yes Inhale. Uni vers formoterol -07 ity of (DULERA 18:48: [place] INHALE) 11 Medical Branch cholecalcif 0 Yes 2000U 2,000 [facility] ers tere 4-07 Units, ity of (vitamin 15:00: Oral, [place] D3) tablet 00 DAILY, Medical 2,000 Units First dose Br anch on [place] 11/05/21 at 1000, Until Discontinu ed, Routine gabapentin 2021- No 300mg Take 300 U nivers 300 mg 11-05 04-07 mg by ity of capsule 14:03: 00:00 mouth 2 [place] 31 :00 (two) Medical times Branch daily. Unsure on dose ALBUTEROL 2021- No Inhale. [facility] ers INHALE 11-05 04-07 ity of 14:03: 00:00 [place] 31 :00 Medical Branch albuterol Yes [id number] 2{puff} Inhale 2 Univers 90 4-07 Puffs ity of mcg/actuati 00:00: every 6 [place] on inhaler 00 (six) Medical hours as Branch needed for Wheezing or Shortness of Breath. Budesonide Yes [id number] 1{puff} Inhale 1 Univers 90 4-07 Puff every ity of mcg/actuati 00:00: morning [place] on aerosol 00 and Medical powder evening. Branch HYDROcodone Yes [id number] 1{tbl} Take 1 Un [place] -acetaminop -07 tablet by ity of hen 5-325 00:00: mouth [place] mg tablet 00 every 6 Medical (six) Branch hours as needed for Pain (scale 4-6). Indication s: acute pain albuterol Yes [id number] 2{puff} Inhale 2 Univers 90 4-07 Puffs ity of mcg/actuati 00:00: every 6 [place] inhaler 00 (six) Medical hours as Branch needed for Wheezing or Shortness of Breath. Budesonide Yes [id number] 1{puff} Inhale 1 Univers 90 4-07 Puff every ity of mcg/actuati 00:00: morning [place] aerosol 00 and Medical powder evening. Branch HYDROcodone Yes [id number] 1{tbl} Take 1 Un [place] -acetaminop 4-07 tablet by ity of hen 5-325 00:00: mouth [place] mg tablet 00 every 6 Medical (six) Branch hours as needed for Pain (scale 4-6). Indication s: acute pain gabapentin 2021- Yes [id number] 300mg Take 1 Univers 300 mg 11-05- capsule by ity of capsule 00:00: 04:59 mouth 2 [place] 00 :00 (two) Medical times Branch daily for 30 days. gabapentin 2021- Yes [id number] 300mg Take 1 Univers 300 mg 11-05- capsule by ity of capsule 00:00: 04:59 mouth 2 [place] 00 :00 (two) Medical times Branch daily for 30 days. azithromyci 2021- Yes [id number] 500mg Take 1 Univers n 500 mg 11-0510 tablet by ity o f tablet 00:00: 04:59 mouth [place] 00 :00 daily for Medical 2 doses. [place] azithromyci 2021- Yes [id number] 500mg Take 1 Univers n 500 mg 11-0510 tablet by ity o f tablet 00:00: 04:59 mouth [place] 00 :00 daily for Medical 2 doses. [place] enoxaparin Yes 30mg 30 mg, Unive rs (LOVENOX) 11-04 Subcutaneo ity of injection 22:00: [place], [place]ILY, [place] 30 mg 00 First dose Medical on Tue11/04/21 at 1700, Until Discontinu ed, Routine sulfur 2021- No [id number] 5mL 5 mL, Univ ers hexafluorid 11-04 04-06 Intravenou i ty of e microsphr 17:45: 17:45 s, ONCE, 1 [place] (LUMASON) 00 :00 dose, On Medica l injection Tue11/04/21 Br anch mL at 1245, Routine
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 : ERIC ARANA predniSONE Yes 50mg 50 mg, Unive rs (DELTASONE) 4-06 Oral, ity of tablet 50 17:00: QNOON, [place] mg 00 First dose Medical on Tue Branch 11/04/21 at 1200, Until Discontinu ed, Routine morpHINE No 2mg 2 mg, Slow Un [place] injection 2 11-04 04-06 IV Push, ity of mg 16:15: 15:22 ONCE, 1 [place] 00 :00 dose, On Medical Tue11/04/21 Branch at 1115, Routine HYDROcodone 2021-0 Yes 1{tbl} 1 tablet, Univers -acetaminop 11-04 Oral, ity of hen (NORCO 15:06: Q6HPRN, [place] 5) 5-325 mg 46 Starting Medi reynaldo tablet 1 on Tue Branch tablet 11/04/21 at 1006, Until Discontinu ed, Routine, Pain (scale 4-6) metoprolol Yes 25mg 25 mg, Unive rs succinate 11-04 Oral, ity of XL (TOPROL 14:00: DAILY, [place] XL) tablet 00 First dose Med ical 25 mg on Tue Branch 11/04/21 at 0900, Until Discontinu ed, Routine azithromyci 2021- No 500mg 500 mg, IV Univers n 11-04 04-07 Piggyback, ity of (ZITHROMAX) 09:00: 13:35 Q24H ABX, [place] 500 mg in 00 :10 7 doses, Medica l NaCl 0.9% First dose Bran ch (NS) 250 mL on Tue VIAL-MATE 11/04/21 at IV 0400, Last piggyback dose on Tue11/10/21 at 0400, Administer over 60 Minutes, 250 mL
Reas on for Anti-Infec tive: Empiric Therapy for Suspected Infection< br>Empiric Therapy Site: Respirator y
Durat ion of therapy: 7 days aspirin Yes 325mg 325 mg, Univer s E.C. 4-06 Oral, QAM ity of (ECOTRIN) 08:30: WITH [place] tablet 325 00 BREAKFAST, Med ical mg First dose Branch on Tue11/04/21 at 0330, Until Discontinu ed, Routine budesonide Yes .5mg 0.5 mg, Univ ers (PULMICORT 11-04 Inhalation ity of RESPULE) 08:00: , BID, [place] nebulizer 00 First dose Medi reynaldo solution on Tue Branch 0.5 mg 11/04/21 at 0300, Until Discontinu ed, Routine ipratropium 2021-0 Yes 3mL 3 mL, Unive rs -albuteroL -06 Inhalation ity of (DUONEB) 08:00: , Q4H, [place] 0.5 mg-3 00 First dose Medic al mg(2.5 mg (after Branch base)/3 mL last nebulizer reorder) solution 3 on Tue mL 11/04/21 at 0300, Until Discontinu ed, Routine gabapentin 2021-0 Yes 300mg 300 mg, Uni vers (NEURONTIN) 4-06 Oral, BID, it y of capsule 300 08:00: First dose [place] mg 00 on Tue Medical 11/04/21 at Branch 0300, Until Discontinu ed, Routine docusate 2021-0 Yes 100mg 100 mg, Unive rs (COLACE) 4-06 Oral, BID, ity o f capsule 100 08:00: First dose [place] mg 00 on Tue Medical 11/04/21 at Branch 0300, Until Discontinu ed, Routine ondansetron 2021-0 Yes 4mg 4 mg, Slow Univers (ZOFRAN 11-04 IV Push, ity of (PF)) 07:56: Q6HPRN, [place] injection 4 12 Starting Medi reynaldo mg on Tue Branch 11/04/21 at 0256, Until Discontinu ed, Routine, Nausea and Vomiting (N/V) ipratropium 2021-0 2021- No 3mL 3 mL, Univ ers -albuteroL 11-04 04-06 Inhalation it y of (DUONEB) 04:45: 03:59 , ONCE, 1 [place] 0.5 mg-3 00 :00 dose, On Medical mg(2.5 mg e 11/03/21 Bran ch base)/3 mL at 2345, nebulizer Routine solution 3 mL methylpredn 2021-0 2021- No 125mg 125 mg, IV Univers isolone sod 11-04 04-06 Piggyback, i ty of succ 04:45: 04:59 ONCE, 1 [place] (SOLU-MEDRO 00 :00 dose, On Medi reynaldo L) Tue11/03/21 Branch injection at 2345, 125 mg LARRY Vital Signs Vital Name Observation Time Observation Value Comments Source Oxygen saturation in 2021-11-05 21:30:00 93 /min [facility] Arterial blood by [facility] Pulse oximetry Branch Respiratory rate 2021-11-05 21:30:00 20 /min [facility] Systolic blood 2021-11-05 16:16:00 116 mm[Hg] [facility] Diastolic blood 2021-11-05 16:16:00 71 mm[Hg] [facility] Heart rate 2021-11-05 16:16:00 95 /min General acute hospital Body temperature 2021-11-05 16:16:00 36.28 Lesley [facility] Body weight 2021-11-05 09:32:00 100.971 kg General acute hospital BMI 2021-11-05 09:32:00 31.05 kg/m2 General acute hospital Body height 2021-11-04 17:37:00 180.3 cm General acute hospital Procedures Procedure Date / Time Performing Clinician Source Performed MAGNESIUM 2021-11-05 16:31:00 Nader Cross [facility] COMP. METABOLIC PANEL 2021-11-05 16:31:00 Nader Cross [facility] ([id number]) [facility] LIPID PANEL ([id number])(TOTAL 2021-11-05 16:31:00 Jorge Fernández [facility] CHOLESTEROL, [facility] TRIGLYCERIDES, HDL) TROPONIN I 2021-11-05 09:50:00 Nadre Cross [facility] FREE T4 2021-11-05 09:50:00 Jorge Fernánedz [facility] THYROID STIMULATING 2021-11-05 09:50:00 Jorge Fernández [facility] HORMONE [facility] N-TERMINAL PRO-BNP 2021-11-05 09:50:00 Nader Cross [facility] TROPONIN I 2021-11-04 23:44:00 Nader Cross [facility] TRANSTHORACIC ECHO (TTE) 2021-11-04 17:37:10 Nader Cross [facility] COMPLETE W/ CONTRAST Medical [facility] PHOSPHORUS 2021-11-04 12:05:00 Nader Cross [facility] URIC ACID 2021-11-04 12:05:00 [place] edmond [facility] MAGNESIUM 2021-11-04 12:05:00 [place] edmond [facility] TROPONIN I 2021-11-04 12:05:00 [place] edmond [facility] LIPID PANEL ([id number])(TOTAL 2021-11-04 12:05:00 Nader Cross [facility] CHOLESTEROL, Medical Branch TRIGLYCERIDES, HDL) VITAMIN B12, LEVEL 2021-11-04 08:48:00 [place] edmond [facility] TROPONIN I 2021-11-04 08:48:00 [place] [facility] SEDIMENTATION RATE 2021-11-04 08:48:00 [place] edmond [facility] VITAMIN D, 25-OH 2021-11-04 08:48:00 [place] [facility] PROCALCITONIN 2021-11-04 08:48:00 [place] [facility] URINE DRUG (IMMUNOASSAY) 2021-11-04 08:08:00 Nader Cross [facility] SCREEN URINALYSIS 2021-11-04 08:08:00 [place] edmond [facility] URINE CULTURE 2021-11-04 08:08:00 [place] edmond [facility] UREA NITROGEN, URINE 2021-11-04 08:08:00 Nader Cross [facility] SODIUM, URINE RANDOM 2021-11-04 08:08:00 [place] edmond [facility] PROTEIN CREAT RATIO URINE 2021-11-04 08:08:[address] [facility] RESPIRATORY PANEL BY PCR 2021-11-04 08:08:00 Nader Cross [facility] COVID-19 (ID NOW RAPID 2021-11-04 04:03:00 Lott, Sheba S [facility] TESTING) Medical [place] LAB ONLY COVID 2021-11-04 04:03:00 Sheba Lott [facility] [place] INTERPRETATION [facility] XR CHEST 1 VW 2021-11-04 02:57:00 Birgit Lemon [facility] ACUTE CARE ARTERIAL BLOOD 2021-11-04 02:57:00 [facility] LIPASE 2021-11-04 02:45:00 Birgit Lemon [facility] TROPONIN I 2021-11-04 02:45:00 Birgit Lemon [facility] COMP. METABOLIC PANEL 2021-11-04 02:45:00 Birgit Lemon [facility] ([id number]) [facility] CBC WITH DIFF 2021-11-04 02:45:00 Birgit Lemon [facility] GLYCOSYLATED HEMOGLOBIN 2021-11-04 02:45:00 [facility] (A1C) [facility] PROTHROMBIN TIME / INR 2021-11-04 02:45:00 Birgit Lemon [facility] ACTIVATED PARTIAL 2021-11-04 02:45:00 Birgit Lemon [facility] THRFormerly [facility] HB ECG ROUTINE & RHYTHM 2021-11-04 02:13:29 Birgit Lemon [facility] NOTICE OF PRIVACY 2021-11-04 01:59:17 Doctor Unassigned, [facility] PRACTICES [place] [facility] [place] CONSENT/REFUSAL FOR 2021-11-04 01:58:37 Doctor Unasssilverio, [facility] DIAGNOSIS AND TREATMENT [place] [facility] Encounters Start End Encounter Admission Attending Care Care Encounter Source Date/Time Date/Time Type Type Clinicians Facility Department ID 2021-11-06 2021-11-06 Transition DONAVAN Davidson [id number] Univers 00:00:00 00:00:00 of Care Nickie LOYD [id number] y of [place] [id number] Ray kay [id number] [facility] 403 Branch 2021-11-03 2021-11-05 Outpatient X PONCHO [facility] [id number] Univers 21:06:00 18:36:00 ALEXIS [facility] 2021-11-03 2021-11-05 [facility] Sheba Lott [facility] [id number] Univers 21:06:00 18:36:00 Encounter [id number] [facility] [id number] [facility] [id number] [facility] 081 Branch Results Test Description Test Time Test Comments Results Result Comments Source LIPID PANEL (15570)(TOTAL CHOLESTEROL, TRIGLYCERIDES, HDL) 17:05:42 Test Item Value Reference Range Interpretation Comme nts CHOL (test code = 8553518853) 186 mg/dL 120-200 HDL (test code = 9380495253) 45 mg/dL >40 HDLC RATIO (test code = See_Comment [Au tomated message] The 0664413202) system which [facility] nerated this result transmit michael reference range: <=5.0. T he reference range was not u sed to interpret this result as normal/abnormal . TRIG (test code = 9581627043) 64 mg/dL 30-170 LDL CHOL (test code = 83202-9) 128 mg/dL See_Comment [Automated message] The system which [facility] nerated this result transmit michael reference range: <=160. T he reference range was not u sed to interpret this result as normal/abnormal . VLDL (test code = 3745815463) 13 mg/dL 5-60 Lab Interpretation (test code = Normal 78283-2) [facility] (88561)2021-11-05 17:05:21 Test Item Value Reference Range Interpretation Comments NA (test code = 138 mmol/L 135-145 7865820175) K (test code = 4.6 mmol/L 3.5-5.0 8902884754) CL (test code = 104 mmol/L 98-108 1963484274) CO2 TOTAL (test code = 30 mmol/L 23-31 3261045112) AGAP (test code = 2-16 8426308123) BUN (test code = 20 mg/dL 7-23 4811483043) GLUCOSE (test code = 102 mg/dL 70-110 9881061807) CREATININE (test code = 0.63 mg/dL 0.60-1.25 1394455990) TOTAL BILI (test code = 1.2 mg/dL 0.1-1.1 H 2606358347) CALCIUM (test code = 9.0 mg/dL 8.6-10.6 8105192960) T PROTEIN (test code = 6.6 g/dL 6.3-8.2 9088769548) ALBUMIN (test code = 3.2 g/dL 3.5-5.0 L 3447226613) ALK PHOS (test code = 75 U/L 34-122 0582379578) ALTv (test code = 35 U/L 5-50 2-6) AST(SGOT) (test code = 39 U/L 13-40 4120202100) eGFR (test code = mL/min/1.73m2 5248954035) TIFFANY (test code = TIFFANY) Association of Glomerular Filtration Rate (GFR) and Staging of Kidney Disease* + --+ --+ ------+| GFR (mL/min/1.73 m2) ?| With Kidney Damage ?| ?Without Kidney Damage+ --------+ --------+ +| ?>90 ?| ?Stage one ?| ? Normal ?+ ---+ ---+ -------+| ?60-89 ?| ?Stage two ?| ? Decreased GFR ? + --+ --+ ------+| ?30-59 ?| ?Stage three ?| ? Stage three ? + --+ --+ ------+| ?15-29 ?| ?Stage four ? | ? Stage four ?+ ---+ ---+ -------+| ?<15 (or dialysis) ? ?| ?Stage five ? | ? Stage five ?+ ---+ ---+ -------+ *Each stage assumes the associated GFR level has been in effect for at least three months. ?Stages 1 to 5, with or without kidney disease, indicate chronic kidney disease. Notes: Determination of stages one and two (with eGFR >59mL/min/1.73 m2) requires estimation of kidney damage for at least three months as defined by structural or functional abnormalities of the kidney, manifested by either:Pathological abnormalities or Markers of kidney damage (including abnormalities in the composition of the blood or urine or abnormalities in imaging tests). Lab Interpretation Abnormal (test code = 19791-8) [facility] 17:05:21 Test Item Value Reference Range Interpretation Comments MAGNESIUM (test code = 1951215284) 1.9 mg/dL 1.7-2.4 Lab Interpretation (test code = Normal 25876-3) [facility] [id number] 12:35:38 Test Item Value Reference Range Interpretation Comments TSH (test code = See_Comment [Automated message] 9760342584) The system [employer] generated this result transmitted ref erence range: 0.45 - 4 .70 mIU/L. The refe rence range was not u sed to interpret this result as normal/abnor mal. Lab Interpretation (test Normal code = 76252-4) [facility] [id number] 12:22:17 Test Item Value Reference Range Interpretation Comments FREE T4 (test code = See_Comment [Autom ated message] 4055770325) The system [employer] generated this result transmitted ref erence range: 0.78 - 2 .20 ng/dL:. The ref erence range was not u sed to interpret this result as normal/abnor mal. Lab Interpretation (test Normal code = 14335-0) [facility] [id number] 12:16:59 Test Item Value Reference Interpretation Comments Range TROPONIN I (test 0.026 ng/mL See_Comment [Automated code = 1055853364) message] The system which generated this result transmitted reference range : <=0.034. The reference range was not used to interpret this result as normal/abnormal . TIFFANY (test code = Reference (Normal) TIFFANY) Range (defined by the 99th percentile reference limit): <= 0.034 ng/mL Note: Cardiac troponin begins to rise 3-4 hours after the onset of ischemia. Repeat in 4-6 hours if the sample was drawn within 3-4 hours of the onset of the symptom and found normal. Diagnosis of myocardial injury is made with acute changes in cTn concentrations with at least one serial sample above the 99th percentile upper reference limit (URL), taken together with the patient's clinical presentation. Biotin has been reported to cause a negative bias, interpret results relative to patient's use of biotin. Lab Interpretation Normal (test code = 93402-7) [facility] [id number] 12:13:58 Test Item Value Reference Range Interpretation Comments NT-proBNP (test code 228 pg/mL See_Comment H [Autom ated = 4481866034) message] The system which generated this result transmitted reference range : <=125. The reference range was not used to interpret this result as normal/abnormal . TIFFANY (test code = TIFFANY) Biotin has been reported to cause a negative bias, interpret results relative to patient's use of biotin. Lab Interpretation Abnormal (test code = 66842-5) [facility] (TTE)2021-11-05 00:59:55 Test Item Value Reference Range Interpretation Comments LVIDD (test code = 4.50 cm 2953505866) IVS (test code = 1.10 cm 5733399212) Interventricular Septum 1.10 cm Diastolic Thickness by 2D (test code = 8228043) LVPWD (test code = 1.24 cm 9164176340) PW (test code = 1.24 cm 0.6-1.0 1072278299) LVOT diameter (test code 1.92 cm = 4651960161) ACS (test code = 1.82 cm 2067055554) Ao root annulus (test 3.5 cm code = 6874549682) Ao root diam (test code 3.50 cm = 8652138463) Aortic root (test code = 3.5 cm 2022922627) LA size (test code = 4.6 cm 6972022514) E wave decelartion time 0.21 s (test code = 6795716011) MV Peak E William (test code 64.9 cm/s = 2791263519) MV Peak A William (test code 83.8 cm/s = 3285463802) E/A ratio (test code = ratio 4398365856) MV Prop V (test code = 65.80 cm/s 1011740374) Tapse (test code = 1.92 cm 7969419335) LVOT stroke volume (test 67.60 cm3 code = 1336219007) LVOT peak william (test code 110.2 cm/s = 3233263350) LVOT mn grad (test code mmHg = 6318474465) AV LVOT peak gradient mmHg (test code = 0299991586) LVOT peak VTI (test code 23.3 cm = 0904378667) LV V1 mean (test code = 62.80 cm/s 6715552712) Aortic valve mean 129.2 cm/s velocity (test code = 0284319660) Ao peak william (test code = 230.1 cm/s 2082489333) Ao VTI (test code = 39.0 cm 9176288067) AV area by cont VTI 1.7 cm2 (test code = 3207185576) AV area peak william (test 1.4 cm2 code = 2139647183) Ao max PG (test code = 21.20 mm[Hg] 8593701721) AV peak gradient (test mmHg code = 5679960673) AV valve area (test code 1.73 cm2 = 0418702388) AV mean gradient (test mmHg code = 0377831480) TR Peak William (test code = 233.7 cm/s 1590667298) Triscuspid Valve mmHg Regurgitation Peak Gradient (test code = 2663395838) EF(Teich) (test code = 60.40 % 8552697649) LVIDS (test code = 3.10 cm 6260603609) FS (test code = 32 % 1159681197) EF - 2D (test code = 60.40 % 50597944) Radiology Study observation (narrative) (test code = 96712-1) TIFFANY (test code = TIFFANY) ?Left?Ventricle: Left ventricle size is normal. Mildly increased wall thickness. Normal wall motion. Normal systolic function with a visually estimated EF of 55 - 60%. There is impaired relaxation. ?Tricuspid?Valve: Tricuspid valve structure is grossly normal. Mild transvalvular regurgitation. Right ventricular systolic pressure is 20-25 mmHg. ?IVC not well seen. ?Right?Ventricle: Right ventricle is mildly dilated. Normal systolic function. ?Aorta: Mildly enlarged ascending aorta 3.4 cm. VitalsHeight Weight BSA (Calculated - sq m) BP Pulse 5' 11" (1.803 m) 220 lb (99.8 kg) 2.23 sq meters 130/95 88 [facility] [id number] 00:28[facility]36 Test Item Value Reference Interpretation Comments Range TROPONIN I (test 0.015 ng/mL See_Comment [Automated code = 9198621826) message] The system which generated this result transmitted reference range : <=0.034. The reference range was not used to interpret this result as normal/abnormal . TIFFANY (test code = Reference (Normal) TIFFANY) Range (defined by the 99th percentile reference limit): <= 0.034 ng/mL Note: Cardiac troponin begins to rise 3-4 hours after the onset of ischemia. Repeat in 4-6 hours if the sample was drawn within 3-4 hours of the onset of the symptom and found normal. Diagnosis of myocardial injury is made with acute changes in cTn concentrations with at least one serial sample above the 99th percentile upper reference limit (URL), taken together with the patient's clinical presentation. Biotin has been reported to cause a negative bias, interpret results relative to patient's use of biotin. Lab Interpretation Normal (test code = 87105-1) [facility], [id number] 17:50:34 Test Item Value Reference Range Interpretation Comments VIT D 25OH (test code = 19 ng/mL 25-80 L 81668-4) TIFFANY (test code = TIFFANY) Deficiency: <20 ng/mLInsufficiency: 20-24 ng/mLOptimal: 25-80 ng/mL Lab Interpretation (test Abnormal code = 45295-4) [facility] 16:54:29 Test Item Value Reference Range Interpretation Comments Procalcitonin (test 0.03 ng/mL <0.07 code = 6448742556) TIFFANY (test code = TIFFANY) INTERPRETATION OF PROCALCITONIN RESULTS IN ADULTS >= 18 YEARS OF AGE Initiation and discontinuation of antibiotics on patients with suspected or confirmed Lower Respiratory Tract Infection in Adults >= 18 years of age. + +-------- --------+ + -----+|Procalcitonin |Interpretation ?|Antibiotic ? ? |Considerations ? |ng/mL ? | ?|recommendation | ? + +-------- --------+ + -----+| <0.1 ? | Bacterial ? ? ?| Strongly ? ? ?| ? | ?| infection very | discouraged ? | Overruling: ? | ?| unlikely ? ? ? | ? | ? Clinically unstable ? ? ? + +-------- --------+ + ? High risk for adverse ? ? | <0.25 ?| Bacterial ? ? ?| Discouraged ? | ? outcome ? | ?| infection ? ? ?| ? | ? SEE IMPORTANT NOTE ?| ?| unlikely ? ? ? | ? | ? + +-------- --------+ + -----+| >=0.25 ? ? ? | Bacterial ? ? ?| Encouraged ? ?| ? | ?| infection ? ? ?| ? | ? | ?| likely ? | ? | Consider treatment failure ?+ +------- ---------+ -+ if levels does not decrease | >0.5 ? | Bacterial ? ? ?| Strongly ? ? ?| appropriately ? | ?| infection very | encouraged ? ?| ? | ?| likely ? | ? | ? + +-------- --------+ + -----+ Discontinuation of antibiotics in high-acuity patients with suspected or confirmed sepsis in Adults >= 18 years of age. + +-------- --------+ + -----+|Procalcitonin |Interpretation ?|Antibiotic ? ? |Considerations ? |ng/mL ? | ?|recommendation | ? + +-------- --------+ + -----+| <0.25 ?| Bacterial ? ? ?| Strongly ? ? ?| ? | ?| infection very | discouraged ? | Overruling: ? | ?| unlikely ? ? ? | ? | ? Clinically unstable ? ? ? + +-------- --------+ + ? High risk for adverse ? ? | <0.5 or drop | Bacterial ? ? ?| Discouraged ? | ? outcome ? | >80% from ? ?| infection ? ? ?| ? | ? SEE IMPORTANT NOTE ?| highest PCT ?| unlikely ? ? ? | ? | ? | level ?| ?| ? | ? + +-------- --------+ + -----+| >=0.5 ?| Bacterial ? ? ?| Encouraged ? ?| ? | ?| infection ? ? ?| ? | ? | ?| likely ? | ? | Consider treatment failure ?+ +------- ---------+ -+ if levels does not decrease | >1.0 ? | Bacterial ? ? ?| Strongly ? ? ?| appropriately ? | ?| infection very | encouraged ? ?| ? | ?| likely ? | ? | ? + +-------- --------+ + -----+ Percentage of drop of Procalcitonin calculation for Discontinuation of antibiotics in high-acuity patients with suspected or confirmed sepsis in Adults >= 18 years of age. ? Procalcitonin highest{}-Procalcitonin current{}Delta Procalcitonin = x100% ? Procalcitonin current {} IMPORTANT NOTE: Procalcitonin may be elevated without bacterial infection by physiologic stress related to trauma, spencer, chronic dialysis, metastatic cancer, surgery in the past seven days, malaria, some fungal infections, and some forms of vasculitis. The interpretation algorithm may not apply to patients with immunosuppression (equivalent of >10 mg of prednisone daily), HIV with CD4 cell count < 350 cells/mm3, active malignancy on systemic chemotherapy, solid organ transplant or hematopoietic stem cell transplantation, or hospital acquired pneumonia. Additionally, some clinical trials of procalcitonin have excluded patients with shock requiring vasopressor use, acute respiratory failure requiring mechanical ventilation, or those with known lung abscess/empyema. For further information please refer to:[email or web address] Lab Interpretation Normal (test code = 19791-5) [facility]12, [id number] 16:39:51 Test Item Value Reference Range Interpretation Comments VIT B12 (test code = 636 pg/mL 240-930 [id number]) TIFFANY (test code = TIFFANY) Biotin has been reported to cause a positive bias, interpret results relative to patient's use of biotin. Lab Interpretation (test Normal code = 08284-9) [facility]LIP[facility] PANEL (06546)(TOTAL CHOLESTEROL, TRIGLYCERIDES, HDL)2021-11-04 15:21:56 Test Item Value Reference Range Interpretation Comments CHOL (test code = 183 mg/dL 120-200 6175422747) HDL (test code = 40 mg/dL >40 L 1852392750) HDLC RATIO (test code = See_Comment [Au tomated message] 0330378722) The system [employer] generated this result transmit michael reference range : <=5.0. The refe rence range was not u sed to interpret th is result as normal/abnormal . TRIG (test code = 57 mg/dL 30-170 5903929025) LDL CHOL (test code = 132 mg/dL See_Comment [Auto mated message] 61546-1) The system [employer] generated this result transmit michael reference range : <=160. The refe rence range was not u sed to interpret th is result as normal/abnormal . VLDL (test code = 11 mg/dL 5-60 8262708937) Lab Interpretation (test Abnormal code = 22161-9) [facility] 15:21:56 Test Item Value Reference Range Interpretation Comments MAGNESIUM (test code = 4243472270) 1.6 mg/dL 1.7-2.4 L Lab Interpretation (test code = Abnormal 66834-5) [facility]2022-[facility] 15:21:36 Test Item Value Reference Range Interpretation Comments PHOSPHORUS (test code = 5196171547) 3.1 mg/dL 2.5-5.0 Lab Interpretation (test code = Normal 07739-1) [facility]URIC [id number] 15:21:16 Test Item Value Reference Range Interpretation Comments URIC ACID (test code = 9481764831) 4.4 mg/dL 3.6-8.0 Lab Interpretation (test code = Normal 85625-9) [facility] [id number] 13:34:13 Test Item Value Reference Interpretation Comments Range TROPONIN I (test 0.038 ng/mL See_Comment H [Automated code = 3302357818) message] The system which generated this result transmitted reference range : <=0.034. The reference range was not used to interpret this result as normal/abnormal . TIFFANY (test code = Reference (Normal) TIFFANY) Range (defined by the 99th percentile reference limit): <= 0.034 ng/mL Note: Cardiac troponin begins to rise 3-4 hours after the onset of ischemia. Repeat in 4-6 hours if the sample was drawn within 3-4 hours of the onset of the symptom and found normal. Diagnosis of myocardial injury is made with acute changes in cTn concentrations with at least one serial sample above the 99th percentile upper reference limit (URL), taken together with the patient's clinical presentation. Biotin has been reported to cause a negative bias, interpret results relative to patient's use of biotin. Lab Interpretation Abnormal (test code = 00957-4) [facility] [id number] 11:19:15 Test Item Value Reference Range Interpretation Comments ESR (test code = See_Comment [Automated message] 2210203770) The system [employer] generated this result transmitted ref erence range: 0 - 10 m m/HR. The reference r larua was not used to interpret this result as normal/abnor mal. Lab Interpretation (test Normal code = 10690-1) [facility] [id number] 10:43:39 Test Item Value Reference Interpretation Comments Range TROPONIN I (test 0.037 ng/mL See_Comment H Hemolyzed code = 9610771468) specimen [Automated message] The system which generated this result transmitted reference range : <=0.034. The reference range was not used to interpret this result as normal/abnormal . TIFFANY (test code = Reference (Normal) TIFFANY) Range (defined by the 99th percentile reference limit): <= 0.034 ng/mL Note: Cardiac troponin begins to rise 3-4 hours after the onset of ischemia. Repeat in 4-6 hours if the sample was drawn within 3-4 hours of the onset of the symptom and found normal. Diagnosis of myocardial injury is made with acute changes in cTn concentrations with at least one serial sample above the 99th percentile upper reference limit (URL), taken together with the patient's clinical presentation. Biotin has been reported to cause a negative bias, interpret results relative to patient's use of biotin. Lab Interpretation Abnormal (test code = 60898-4) [facility]GLYCOSYLATED HEMOGLOBIN (A1C)2021-11-04 09:01:59 Test Item Value Reference Range Interpretation Comments HGB A1C (test code = 6.0 % 4.0-5.7 H 4548-4) TIFFANY (test code = TIFFANY) Reference RangesNormal: <5.7%Prediabetes: 5.7 - 6.4%Diabetes: > 6.5% Lab Interpretation (test Abnormal code = 66880-7) [facility] [id number] 03:17:54 Test Item Value Reference Interpretation Comments Range TROPONIN I (test 0.035 ng/mL See_Comment H [Automated code = 8093745595) message] The system which generated this result transmitted reference range : <=0.034. The reference range was not used to interpret this result as normal/abnormal . TIFFANY (test code = Reference (Normal) TIFFANY) Range (defined by the 99th percentile reference limit): <= 0.034 ng/mL Note: Cardiac troponin begins to rise 3-4 hours after the onset of ischemia. Repeat in 4-6 hours if the sample was drawn within 3-4 hours of the onset of the symptom and found normal. Diagnosis of myocardial injury is made with acute changes in cTn concentrations with at least one serial sample above the 99th percentile upper reference limit (URL), taken together with the patient's clinical presentation. Biotin has been reported to cause a negative bias, interpret results relative to patient's use of biotin. Lab Interpretation Abnormal (test code = 40355-4) [facility]COMP. METABOLIC PANEL (49683)2021-11-04 03:06:14 Test Item Value Reference Range Interpretation Comments NA (test code = 136 mmol/L 135-145 7132845100) K (test code = 4.4 mmol/L 3.5-5.0 3215812490) CL (test code = 99 mmol/L 98-108 4511404804) CO2 TOTAL (test code = 29 mmol/L 23-31 2615008391) AGAP (test code = 2-16 9628347395) BUN (test code = 22 mg/dL 7-23 8116276193) GLUCOSE (test code = 164 mg/dL 70-110 H 9576837753) CREATININE (test code = 0.72 mg/dL 0.60-1.25 8197483881) TOTAL BILI (test code = 1.8 mg/dL 0.1-1.1 H 0058758696) CALCIUM (test code = 9.3 mg/dL 8.6-10.6 4699267485) T PROTEIN (test code = 7.5 g/dL 6.3-8.2 5813876245) ALBUMIN (test code = 3.7 g/dL 3.5-5.0 5510890725) ALK PHOS (test code = 98 U/L 34-122 9949743575) ALTv (test code = 35 U/L 5-50 1742-6) AST(SGOT) (test code = 48 U/L 13-40 H 1700980101) eGFR (test code = mL/min/1.73m2 4029545773) TIFFANY (test code = TIFFANY) Association of Glomerular Filtration Rate (GFR) and Staging of Kidney Disease* + --+ --+ ------+| GFR (mL/min/1.73 m2) ?| With Kidney Damage ?| ?Without Kidney Damage+ --------+ --------+ +| ?>90 ?| ?Stage one ?| ? Normal ?+ ---+ ---+ -------+| ?60-89 ?| ?Stage two ?| ? Decreased GFR ? + --+ --+ ------+| ?30-59 ?| ?Stage three ?| ? Stage three ? + --+ --+ ------+| ?15-29 ?| ?Stage four ? | ? Stage four ?+ ---+ ---+ -------+| ?<15 (or dialysis) ? ?| ?Stage five ? | ? Stage five ?+ ---+ ---+ -------+ *Each stage assumes the associated GFR level has been in effect for at least three months. ?Stages 1 to 5, with or without kidney disease, indicate chronic kidney disease. Notes: Determination of stages one and two (with eGFR >59mL/min/1.73 m2) requires estimation of kidney damage for at least three months as defined by structural or functional abnormalities of the kidney, manifested by either:Pathological abnormalities or Markers of kidney damage (including abnormalities in the composition of the blood or urine or abnormalities in imaging tests). Lab Interpretation Abnormal (test code = 93285-6) [facility]LIP[facility], [id number] 03:05:54 Test Item Value Reference Range Interpretation Comments LIPASE (test code = 5727030920) 253 U/L 0-220 H Lab Interpretation (test code = Abnormal 18040-1) [facility]aPTT[facility] 03:03:13 Test Item Value Reference Range Interpretation Comments APTT Patient (test See_Comment [Automat ed code = 3173-2) message] The system which generated this result transmitted reference range : 23 - 38 Seconds . The reference range was not used to interpr et this result as normal/abnormal . TIFFANY (test code = TIFFANY) The [facility] patient population mean normal value for aPTT is 30 seconds. Lab Interpretation Normal (test code = 11775-0) [facility] HospitalPROTHROMBIN TIME / [id number] 03:01:34 Test Item Value Reference Range Interpretation Comments PROTIME PATIENT (test See_Comment H [Auto mated message] code = 5964-2) The system wh ich generated this result transmitted ref erence range: 12.0 - 1 4.7 Seconds. The reference range was not used to int erpret this result as normal/abnormal . INR (test code = 6301-6) Nor mal INR <1.1; Warfarin Therap eutic range 2.0 to 3. 0 or 2.5 to 3.5, dep ending upon the indica tions. Lab Interpretation (test Abnormal code = 61275-8) [facility] HospitalCBC WITH [id number] 02:55:12 Test Item Value Reference Range Interpretation Comments WBC (test code = See_Comment [Automated 6690-2) message] The sy stem which generated this result transmitted reference range : 4.20 - 10.70 10*3/?L. The reference range was not used to interpret this result as normal/abnormal . RBC (test code = See_Comment H [Automated 789-8) message] The sy stem which generated this result transmitted reference range : 4.26 - 5.52 10*6/?L. The reference range was not used to interpret this result as normal/abnormal . HGB (test code = 17.3 g/dL 12.2-16.4 H 718-7) HCT (test code = 51.8 % 38.4-49.3 H 4544-3) MCV (test code = 92.7 fL 81.7-95.6 787-2) MCH (test code = 30.9 pg 26.1-32.7 785-6) MCHC (test code = 33.4 g/dL 31.2-35.0 786-4) RDW-SD (test code = 50.4 fL 38.5-51.6 93729-5) RDW-CV (test code = 14.8 % 12.1-15.4 788-0) PLT (test code = See_Comment L [Automated 777-3) message] The sy stem which generated this result transmitted reference range : 150 - 328 10*3/ ?L. The reference r laura was not used to interpret this result as normal/abnormal . MPV (test code = 10.3 fL 9.8-13.0 57013-4) NRBC/100 WBC (test See_Comment [Automat ed code = 8358563012) message] The system which generated this result transmitted reference range : 0.0 - 10.0 /100 WBCs. The refer ence range was not u sed to interpret th is result as normal/abnormal . NRBC x10^3 (test code <0.01 See_Comment [Auto mated = 1009562722) message] The s ystem which generated this result transmitted reference range : 10*3/?L. The reference range was not used to interpret this result as normal/abnormal . GRAN MAT (NEUT) % 72.3 % (test code = 770-8) IMM GRAN % (test code 1.70 % = 6676153080) LYMPH % (test code = 16.5 % 736-9) MONO % (test code = 8.2 % 5905-5) EOS % (test code = 1.0 % 713-8) BASO % (test code = 0.3 % 706-2) GRAN MAT x10^3(ANC) 7.35 10*3/uL 1.99-6.95 H (test code = 3154672878) IMM GRAN x10^3 (test 0.17 10*3/uL 0.00-0.06 H code = 5547991874) LYMPH x10^3 (test code 1.67 10*3/uL 1.09-3.23 = 731-0) MONO x10^3 (test code 0.83 10*3/uL 0.36-1.02 = 742-7) EOS x10^3 (test code = 0.10 10*3/uL 0.06-0.53 711-2) BASO x10^3 (test code 0.03 10*3/uL 0.01-0.09 = 704-7) Lab Interpretation Abnormal (test code = 19022-7) [facility]
[2021-11-19] MEDS ORDERED: METHYLPREDNISOLONE 125 MG INJ ONE (07:49)
[2021-11-19] MEDS ORDERED: FUROSEMIDE 40 MG/4 ML VIAL ONE ×2 (07:52→14:25)
[2021-11-19] MEDS ORDERED: LEVALBUTEROL 1.25 MG/3 ML NEB ONE (07:52)
[2021-11-19] MEDS ORDERED: AZITHROMYCIN 500 MG INJ IVPB ONE (07:52)
[2021-11-19] MEDS ORDERED: NA CHLORIDE 0.9% 250 ML ONE (07:53)
[2021-11-19] MEDS ORDERED: IPRATROPIUM BROM 0.5MG/2.5ML ONE (07:53)
[2021-11-19 08:16] LABS: Absolute Lymphocytes (CBC) 0.9 K/uL (0.7-4.9); Hematocrit 40.8 % (39.6-49.0); Lymphocytes % 13.9 % (15.3-44.8); MPV 7.1 fL (7.6-11.3)
[2021-11-19 08:31] LABS: Protime INR 1.11
[2021-11-19 08:34] LABS: ALT/SGPT 45 U/L (12-78); AST/SGOT 31 U/L (15-37); Albumin 2.7 g/dL (3.4-5.0); Alkaline Phosphatase 79 U/L (45-117); BUN Blood Urea Nitrogen 17 mg/dL (7-18); Bicarbonate 28 mmol/L (21-32); Bilirubin Direct 0.5 mg/dL (0-0.2); Bilirubin Total 1.6 mg/dL (0.2-1.0); CKMB Creatine Kinase MB 1.9 ng/mL (1.0-3.6); Creatine Phosphokinase 41 U/L (39-308); Glucose Level 106 mg/dL (74-106); Lipase 214 U/L (73-393); NT PRO-BNP 53 pg/mL (<125); Protein, Total 6.4 g/dL (6.4-8.2); Sodium Level 139 mmol/L (136-145); Troponin High Sensitivity 16.3 pg/mL (<58.9)
--- NOTE | 2021-11-19 08:43 | RAD REPORT ---
EXAM DESCRIPTION: RAD - Chest Single View - 11/19/2021 8:13 am CLINICAL HISTORY: CONGESTION Chest pain. COMPARISON: Chest Single View dated 11/11/2021; Chest Single View dated 10/30/2021; Chest Single View d ated 10/13/2021; Chest Single View dated 08/25/2021 FINDINGS: Portable technique limits examination quality. Small left pleural effusion with moderate bibasilar lung opacities present likely representing bibasi lar pneumonia. The heart is mildly prominent in size. No displaced fractures.
--- NOTE | 2021-11-19 08:57 | ER ---
Nurse's Notes [facility] Name: Joseph Quach Age: 61 yrs Sex: Male : 1960 Arrival Date: 11/19/2021 Time: 06:59 Bed 26 Private MD: Diagnosis: Chest pain, unspecified;Systolic (congestive) heart failure;Other pneumonia, unspecified organism Presentation: 11/19 07:16 Chief complaint: Patient states: Productive cough, left and right sided chest pain x 3 jl7 weeks, pt wears home O2 at 2 lpm NC. Coronavirus screen: At this time, the client does not indicate any symptoms associated with coronavirus-19. Ebola Screen: No symptoms or risks identified at this time. Initial Sepsis Screen: Does the patient meet any 2 criteria? RR > 20 per min. Risk Assessment: Do you want to hurt yourself or someone else? Patient reports no desire to harm self or others. Onset of symptoms was October 30, 2021. Care prior to arrival: None. 07:16 Method Of Arrival: Ambulatory jl7 07:16 Acuity: AISLINN 3 jl7 07:16 Initial Sepsis Screen: Does the patient have a suspected source of infection? Yes: aa5 Productive cough/pneumonia. Historical: - Allergies: 07:17 NKDA; jl7 - PMHx: 07:17 cirrhosis of liver; COPD; Myocardial infarction; Hypertensive disorder; high jl7 cholesterol; - PSHx: 07:17 hernia repair -1959; jl7 - Social history:: Patient/guardian denies using alcohol, street drugs, The patient lives with family, Smoking status: Patient/guardian denies using tobacco, Pt reports he quit smoking 2 weeks ago after getting out of hospital . - Family history:: not pertinent. Assessment: 07:30 General: Appears uncomfortable, Behavior is calm, cooperative. Pain: Complains of pain dw3 in right lateral anterior chest and left lateral anterior chest Pain currently is 10 out of 10 on a pain scale. 07:30 Pain: Complains of pain in right foot and left foot Pain currently is 10 out of 10 on a dw3 pain scale. Neuro: Level of Consciousness is awake, alert, obeys commands, Oriented to person, place, time, situation. Cardiovascular: Pulses are 4+ in pt has bilateral lower extremity swellling with wheeping. Cardiovascular: Chest pain quality is sharp, pt states he's had chest pain for the past 3 weeks, but it has now gotten unbearable . Respiratory: Sputum is yellow Breath sounds are coarse bilaterally. the patient has severe shortness of breath. Respiratory: GI: Abdomen is round. GI: No signs and/or symptoms were reported involving the gastrointestinal system. : No signs and/or symptoms were reported regarding the genitourinary system. EENT: No signs and/or symptoms were reported regarding the EENT system. Derm: Skin Skin is pt has purplish brown bruising on his arms and purple colored bruising on his abdomen area. Musculoskeletal: Swelling present in lateral aspect of right calf, right ankle, lateral aspect of right foot, right calf, right Achilles, right heel, medial aspect of right calf, medial aspect of right foot, right finn, anterior aspect of right ankle and dorsum of right foot. 08:35 General: notified MD of critical lab value D-Dimer [id number]. ap3 09:20 Reassessment: Patient is alert, oriented x 3, equal unlabored respirations, skin aa5 warm/dry/pink. Reports SOB has improved but chest pain has not improved, MD was notified. . 09:20 Respiratory: Breath sounds are clear bilaterally. aa5 Vital Signs: 07:16 BP 128 / 81; Pulse 87; Resp 26 S; Temp 98.6(TE); Pulse Ox 97% on 2 lpm NC; Weight 100.7 aa5 kg; Height 5 ft. 11 in. (180.34 cm); 08:35 BP 129 / 84; Pulse 76; Pulse Ox 100% on Nebulizer Mask; ap3 08:35 Temp 98.6; dw3 09:30 BP 120 / 72; Pulse 95; Resp 18 S; Pulse Ox 96% on 2 lpm NC; aa5 10:39 BP 114 / 90; Pulse 89; Resp 18; Temp 97.6; Pulse Ox 92% on 2 lpm NC; Pain 6/10; dw3 11:39 BP 121 / 75; Pulse 92; Resp 19; Temp 98.2; Pulse Ox 93% on 2 lpm NC; Pain 6/10; dw3 07:16 Body Mass Index 30.96 (100.70 kg, 180.34 cm) aa5 10:39 pt's states that his chest pain has decreased from 10/10 down to a 6/10. His feet are dw3 still paining him at 10/10. Pt had socks on both feet, I removed his socks to help reduce his feet swelling. At this time pt's calfs are still wheeping due to excessive fluid retention. 11:39 pt's stated "I feel like the medication is helping. My chest pain is slowly dw3 decreasing." pt's chest pain is now rated 5/10. The fluid retention in the pt's feet is still present and now appears to be non pitable but still 4+, pt rates the pain in his feet still at 10/10. ED Course: 06:59 Patient arrived in ED. bp1 07:04 Belem Molina MD is Attending Physician. ma2 07:17 Triage completed. jl7 07:17 Arm band placed on right wrist. jl7 08:04 Inserted saline lock: 20 gauge in left wrist, using aseptic technique. Blood collected. aa5 08:04 Initial lab(s) drawn, by me, sent to lab. First set of blood cultures drawn by me. aa5 08:15 XRAY Chest (1 view) In Process Unspecified. EDMS 08:39 Maria De Jesus Mathis, RN is Primary Nurse. dw3 08:57 Jose Alfredo Yates is Hospitalizing Provider. ma2 Administered Medications: 08:18 Drug: Lasix (furosemide) 40 mg Route: IVP; Site: left wrist; dw3 09:08 Follow up: Response: No adverse reaction dw3 08:18 Drug: SOLU-Medrol (methylPrednisoLONE) 125 mg Route: IVP; Site: left wrist; dw3 09:08 Follow up: Response: No adverse reaction dw3 08:39 Drug: AZITHromycin 500 mg Route: IVPB; Infused Over: 1 hrs; Site: left wrist; dw3 09:43 Follow up: Response: No adverse reaction; IV Status: Completed infusion aa5 08:40 Drug: AtroVENT (ipratropium) Aerosol 0.5 mg Route: Inhalation; dw3 09:08 Follow up: Response: No adverse reaction dw3 09:10 Follow up: Response: No adverse reaction dw3 08:40 Drug: AtroVENT (ipratropium) Aerosol 0.5 mg Route: Inhalation; dw3 08:40 Drug: AtroVENT (ipratropium) Aerosol 0.5 mg Route: Inhalation; dw3 08:41 Drug: Xopenex (levalbuterol) 1.25 mg Route: Inhalation; dw3 09:11 Follow up: Response: No adverse reaction dw3 09:27 Drug: morphine 4 mg Route: IVP; Site: left wrist; aa5 09:43 Follow up: Response: No adverse reaction aa5 09:27 Drug: Zofran (Ondansetron) 4 mg Route: IVP; Site: left wrist; aa5 09:43 Follow up: Response: No adverse reaction aa5 Outcome: 08:57 Decision to Hospitalize by Provider. ma2 16:35 Patient left the ED. jd3 Signatures: Dispatcher [employer] EDMS Dana Campbell, RN RN aa5 Jhoana Lozada RN RN jl7 Archie Hobbs RN RN jd3 Belem Molina MD MD ma2 Mary Lou Rose RN RN ap3 Antonia Chavez Danielle, RN RN dw3 Corrections: (The following items were deleted from the chart) 09: 07:16 Initial Sepsis Screen: Does the patient meet any 2 criteria? jl7 aa5 09:28 07:28 BP 128 / 81; Pulse 87bpm; Pulse Ox 97% 2 lpm Nasal Cannula; 100.7 kg; Height 5 aa5 ft. 11 in.; BMI: 30.9; dw3 09:28 07:28 BP 128 / 81; Pulse 87bpm; Resp 26bpm; Spontaneous; Pulse Ox 97% 2 lpm Nasal aa5 Cannula; Temp 98.6F Temporal; 100.7 kg; Height 5 ft. 11 in.; BMI: 30.9; aa5 09:53 07:30 Cardiovascular: Chest pain quality is sharp, pt states he's had chest pain for dw3 the past 3 weeks, but not it has gotten unbearable . dw3 :53 07:30 Pain: Complains of pain in right foot and left foot Pain currently is 10 out of dw3 10 on a pain scale. dw3
--- NOTE | 2021-11-19 08:57 | EDPHYS ---
Physician Documentation [facility] Name: Joseph Quach Age: 61 yrs Sex: Male : 1960 Arrival Date: 11/19/2021 Time: 06:59 Bed 26 Private MD: ED Physician Belem Molina HPI: 11/19 07:41 This 61 yrs old Male presents to ER via Ambulatory with complaints of Productive Cough. ma2 07:41 61-year-old male history of COPD on home oxygen 2 L daily 21/02, patient presents with ma2 cough productive for 1 week, patient also states he had chest pain that started substernal a week ago and now its left-sided intermittent, not patient was diagnosed with a flu 2 weeks ago and since then has been having this cough that seems to be worsening.. Historical: - Allergies: 07:17 NKDA; jl7 - PMHx: 07:17 cirrhosis of liver; COPD; Myocardial infarction; Hypertensive disorder; high jl7 cholesterol; - PSHx: 07:17 hernia repair -1959; jl7 - Social history:: Patient/guardian denies using alcohol, street drugs, The patient lives with family, Smoking status: Patient/guardian denies using tobacco, Pt reports he quit smoking 2 weeks ago after getting out of hospital . - Family history:: not pertinent. ROS: 07:41 Constitutional: Negative for fever, chills, and weight loss. ma2 07:41 All other systems are negative. Exam: 07:41 Constitutional: This is a well developed, well nourished patient who is awake, alert, ma2 and in no acute distress. ENT: Nares patent. No nasal discharge, no septal abnormalities noted. Tympanic membranes are normal and external auditory canals are clear. Oropharynx with no redness, swelling, or masses, exudates, or evidence of obstruction, uvula midline. Mucous membranes moist. Neck: Trachea midline, no thyromegaly or masses palpated, and no cervical lymphadenopathy. Supple, full range of motion without nuchal rigidity, or vertebral point tenderness. No Meningismus. Chest/axilla: Normal chest wall appearance and motion. Nontender with no deformity. No lesions are appreciated. Cardiovascular: Regular rate and rhythm with a normal S1 and S2. No gallops, murmurs, or rubs. Normal PMI, no JVD. No pulse deficits. Respiratory: Patient has bilateral basal rales diffuse, on oxygen 2 L, lungs have equal breath sounds bilaterally, clear to auscultation and percussion. No rales, rhonchi or wheezes noted. No increased work of breathing, no retractions or nasal flaring. Abdomen/GI: Soft, non-tender, with normal bowel sounds. No distension or tympany. No guarding or rebound. No evidence of tenderness throughout. Skin: Warm, dry with normal turgor. Normal color with no rashes, no lesions, and no evidence of cellulitis. MS/ Extremity: Bilateral lower extremity edema pitting 3+ equal bilaterally, pulses equal, no cyanosis. Neurovascular intact. Full, normal range of motion. Neuro: Awake and alert, GCS 15, oriented to person, place, time, and situation. Cranial nerves II-XII grossly intact. Motor strength 5/5 in all extremities. Sensory grossly intact. Cerebellar exam normal. Normal gait. Vital Signs: 07:16 BP 128 / 81; Pulse 87; Resp 26 S; Temp 98.6(TE); Pulse Ox 97% on 2 lpm NC; Weight 100.7 aa5 kg; Height 5 ft. 11 in. (180.34 cm); 08:35 BP 129 / 84; Pulse 76; Pulse Ox 100% on Nebulizer Mask; ap3 08:35 Temp 98.6; dw3 09:30 BP 120 / 72; Pulse 95; Resp 18 S; Pulse Ox 96% on 2 lpm NC; aa5 10:39 BP 114 / 90; Pulse 89; Resp 18; Temp 97.6; Pulse Ox 92% on 2 lpm NC; Pain 6/10; dw3 11:39 BP 121 / 75; Pulse 92; Resp 19; Temp 98.2; Pulse Ox 93% on 2 lpm NC; Pain 6/10; dw3 07:16 Body Mass Index 30.96 (100.70 kg, 180.34 cm) aa5 10:39 pt's states that his chest pain has decreased from 10/10 down to a 6/10. His feet are dw3 still paining him at 10/10. Pt had socks on both feet, I removed his socks to help reduce his feet swelling. At this time pt's calfs are still wheeping due to excessive fluid retention. 11:39 pt's stated "I feel like the medication is helping. My chest pain is slowly dw3 decreasing." pt's chest pain is now rated 5/10. The fluid retention in the pt's feet is still present and now appears to be non pitable but still 4+, pt rates the pain in his feet still at 10/10. MDM: 07:41 Differential Diagnosis: Bronchitis Influenza Upper Respiratory Infection Sinusitis ma2 Pharyngitis. Data reviewed: vital signs, nurses notes, EMS record. Counseling: I had a detailed discussion with the patient and/or guardian regarding: the historical points, exam findings, and any diagnostic results supporting the discharge/admit diagnosis, the presence of at least one elevated blood pressure reading (>120/80) during this emergency department visit, the need for outpatient follow up. Response to treatment: the patient's symptoms have markedly improved after treatment. ED course: Shortness of breath with chest pain and lower extremity edema, differentials include COPD with cor pulmonale versus CHF new onset versus pneumonia, versus acute CHF, versus ACS, will get labs chest x-ray treat for COPD exacerbation antibiotics. Patient is Lasix giuliana we will give Lasix 40 IV or new onset lower extremity edema severe equal bilaterally. 08:56 ED course: We will admit patient for chest pain ACS rule out, pneumonia, new onset CHF. nj2 08:57 Patient medically screened. 11/19 07:28 Order name: Basic Metabolic Panel; Complete Time: 08:45 11/19 07:28 Order name: CBC with Diff; Complete Time: 11:03 11/19 07:28 Order name: NT PRO-BNP; Complete Time: 08:45 11/19 07:28 Order name: PT-INR; Complete Time: 08:45 11/19 07:28 Order name: Troponin HS; Complete Time: 08:45 11/19 07:28 Order name: Blood Culture Adult (2) 11/19 07:28 Order name: CPK; Complete Time: 08:45 11/19 07:28 Order name: Ckmb; Complete Time: 08:45 11/19 07:28 Order name: D-Dimer; Complete Time: 08:45 nj11/19 07:28 Order name: Hepatic Function; Complete Time: 08:45 ma2 11/19 07:28 Order name: Lipase; Complete Time: 08:45 ma2 11/19 07:28 Order name: Magnesium; Complete Time: 08:45 ma2 11/19 07:28 Order name: Ptt, Activated; Complete Time: 08:45 ma2 11/19 09:38 Order name: CBC Smear Scan; Complete Time: 11:03 EDMS 11/19 09:51 Order name: COVID-19/FLU A+B; Complete Time: 11:03 EDMS 11/19 13:06 Order name: Basic Metabolic Panel EDMS 11/19 13:06 Order name: Basic Metabolic Panel EDMS 11/19 13:06 Order name: CBC with Automated Diff EDMS 11/19 13:06 Order name: CBC with Automated Diff EDMS 11/19 13:06 Order name: Lipid Profile EDMS 11/19 13:06 Order name: Lipid Profile EDMS 11/19 13:06 Order name: Magnesium EDMS 11/19 13:06 Order name: Magnesium EDMS 11/19 13:06 Order name: Phosphorus EDMS 11/19 13:06 Order name: Phosphorus EDMS 11/19 13:06 Order name: Troponin High Sensitivity EDMS 11/19 13:06 Order name: Troponin High Sensitivity EDMS 11/19 13:06 Order name: Troponin High Sensitivity EDMS 11/19 07:28 Order name: XRAY Chest (1 view); Complete Time: 08:45 ma2 11/19 07:28 Order name: EKG; Complete Time: 07:29 ma2 11/19 07:28 Order name: Cardiac monitoring; Complete Time: 07:31 ma2 11/19 07:28 Order name: EKG - Nurse/Tech; Complete Time: 07:31 ma2 11/19 07:28 Order name: IV Saline Lock; Complete Time: 07:31 ma2 11/19 07:28 Order name: Labs collected and sent; Complete Time: 07:31 ma2 11/19 07:28 Order name: O2 Per Protocol; Complete Time: 07:31 ma2 11/19 07:28 Order name: O2 Sat Monitoring; Complete Time: 07:31 ma2 11/19 13:06 Order name: Heart Healthy EDMS 11/19 13:06 Order name: Echo with Doppler EDMS Administered Medications: 08:18 Drug: Lasix (furosemide) 40 mg Route: IVP; Site: left wrist; dw3 09:08 Follow up: Response: No adverse reaction dw3 08:18 Drug: SOLU-Medrol (methylPrednisoLONE) 125 mg Route: IVP; Site: left wrist; dw3 09:08 Follow up: Response: No adverse reaction dw3 08:39 Drug: AZITHromycin 500 mg Route: IVPB; Infused Over: 1 hrs; Site: left wrist; dw3 09:43 Follow up: Response: No adverse reaction; IV Status: Completed infusion aa5 08:40 Drug: AtroVENT (ipratropium) Aerosol 0.5 mg Route: Inhalation; dw3 09:08 Follow up: Response: No adverse reaction dw3 09:10 Follow up: Response: No adverse reaction dw3 08:40 Drug: AtroVENT (ipratropium) Aerosol 0.5 mg Route: Inhalation; dw3 08:40 Drug: AtroVENT (ipratropium) Aerosol 0.5 mg Route: Inhalation; dw3 08:41 Drug: Xopenex (levalbuterol) 1.25 mg Route: Inhalation; dw3 09:11 Follow up: Response: No adverse reaction dw3 09:27 Drug: morphine 4 mg Route: IVP; Site: left wrist; aa5 09:43 Follow up: Response: No adverse reaction aa5 09:27 Drug: Zofran (Ondansetron) 4 mg Route: IVP; Site: left wrist; aa5 09:43 Follow up: Response: No adverse reaction aa5 Disposition Summary: 11/19/21 08:57 Hospitalization Ordered Hospitalization Status: Inpatient Admission ma2 Provider: Jose Alfredo Yates Condition: Stable ma2 Problem: new ma2 Symptoms: are unchanged ma2 Bed/Room Type: Standard ma2 Location: Telemetry/MedSurg (Inpatient)(11/19/21 15:35) em1 Room Assignment: 216(11/19/21 15:35) em1 Diagnosis - Chest pain, unspecified ma2 - Systolic (congestive) heart failure ma2 - Other pneumonia, unspecified organism ma2 Forms: - Medication Reconciliation Form ma2 - SBAR form ma2 Signatures: Dispatcher [employer] Matt Son em1 Dana Campbell RN RN aa5 Jhoana Lozada RN RN jl7 Archie Hobbs RN RN jd3 Belem Molina MD MD ma2 Maria De Jesus Mathis, RN RN dw3 Corrections: (The following items were deleted from the chart) 09:51 07:44 SARS-COV-2 RT PCR+MOL.LAB.BRZ ordered. EDMS EDMS 09:52 07:44 Influenza Screen (A \\T\\ B)+BA.LAB.BRZ ordered. EDMS EDMS 11:56 08:57 Telemetry/MedSurg (Inpatient) nj2 jd3 11:56 08:57 nj2 jd3 15:35 11:56 [facility] ER HOLD jd3 em1 15:35 11:56 ERHOLD- jd3 em1
[2021-11-19] MEDS ORDERED: ONDANSETRON 4 MG/2 ML VIAL ONE (09:26)
[2021-11-19] MEDS ORDERED: MORPHINE 4 MG/ML SYR ONE (09:26)
[2021-11-19 09:36] LABS: White Blood Cell Scan OK (OK)
[2021-11-19 09:37] LABS: Blood Morphology Comment NOT SEEN (NOT SEEN); Platelet Estimate DECR
[2021-11-19 10:28] LABS: SARS-COV-2 RT PCR NEGATIVE (NEGATIVE)
--- NOTE | 2021-11-19 12:53 | P.HP ---
Certification for Inpatient Patient admitted to: Inpatient With expected LOS: >2 Midnights Practitioner: I am a practitioner with admitting privileges, knowledge of patient current condition, hospital course, and medical plan of care. Services: Services provided to patient in accordance with Admission requirements found in Title 42 Section 412.3 of the Code of Federal Regulations Patient History Date of Service: 11/19/21 Reason for admission: Shortness of breath and chest pain History of Present Illness: 61-year-old gentleman with a history of COPD and liver cirrhosis presented to the emergency department with a complaint of chest pain of 21 days duration, associated shortness of breath. Patient also reports increased lower extremity swelling. Chest pain described as pleuritic, worse with deep breathing and coughing. Patient reports cough productive of yellowish sputum. He also reports orthopnea and paroxysmal nocturnal dyspnea. Checks x-ray done in the emergency department demonstrate pulm edema and bibasilar pneumonia. Troponin is negative. Patient is admitted for further management of new onset CHF and pneumonia. Allergies Fish Containing Products Allergy (Verified 10/31/21 09:57) Anaphylaxis Home Medications: Benzonatate [Tessalon Perle*] 100 mg PO TID PRN #30 cap 08/25/21 Gabapentin 300 mg PO BID #60 08/25/21 Ipratropium/Albuterol Sulfate [Iprat-Albut 0.5-3(2.5) mg/3 ml] 3 ml NEB Q6H #60 ampul.neb 08/25/21 Mometasone/Formoterol [Dulera 200 Mcg/5 Mcg Inhaler] 2 puff IH BID #1 inhaler 0 08/25/21 levoFLOXacin [Levaquin*] 500 mg PO DAILY 7 Days #7 tab 10/15/21 predniSONE [Prednisone*] 20 mg PO SEECOM 7 Days #11 tab 10/15/21 Albuterol Neb [Proventil 0.083% Neb Soln] 2.5 mg NEB [id number] PRN #60 amp 11/03/21 Apixaban [Eliquis *] 2.5 mg PO BID #60 tablet 11/03/21 Arformoterol Tartrate [Brovana] 15 mcg NEB BIDRESP #60 vial.neb 11/03/21 Atorvastatin Calcium [Lipitor] 40 mg PO BEDTIME #30 tab 11/03/21 Furosemide [Lasix] 40 mg PO DAILY #30 tab 04/05/22 Ipratropium Neb [Atrovent*] 0.5 mg NEB Q9DIQVB #60 amp 11/03/21 Oseltamivir [Tamiflu*] 75 mg PO BID #10 cap 11/03/21 Potassium Chloride 20 meq PO DAILY #30 tab.er.prt 11/03/21 predniSONE [Prednisone*] 20 mg PO BID #11 tab 11/03/21 - Past Medical/Surgical History Diabetic: No -: COPD -: Tobacco abuse -: Hypertension -: 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 - Family History Sister -: Cancer, Other (see notes) Notes: lupus Brother -: Kidney disease, Other (see notes) Notes: lupus Mother -: Other (see notes) Notes: copd - Social History Alcohol use: No CD- Drugs: No Caffeine use: Yes Review of Systems Other: Except as documented, all other systems reviewed and negative. Physical Examination - Physical Exam General: Alert, In no apparent distress, Oriented x3 HEENT: Mucous membr. moist/pink Neck: Supple, JVD not distended Respiratory: Normal air movement, Crackles/rales (Bilateral) Cardiovascular: Regular rate/rhythm, Normal S1 S2, Edema (Bilateral legs) Capillary refill: <2 Seconds Gastrointestinal: Normal bowel sounds, Soft and benign, Non-distended, No tenderness Musculoskeletal: No tenderness, Swelling (Bilateral legs) Integumentary: No cyanosis, Other (Bilateral venous stasis dermatitis) Neurological: Normal strength at 5/5 x4 extr, Cranial nerves 3-12 intact Lymphatics: No axilla or inguinal lymphadenopathy - Studies Laboratory Data (last 24 hrs) 11/19/21 08:05: PT 12.2, INR 1.11, APTT 29.2 11/19/21 08:05: WBC 6.2, Hgb 13.8, Hct 40.8, Plt Count 86 L D 11/19/21 08:05: Sodium 139, Potassium 4.0, BUN 17, Creatinine 0.58, Glucose 106, Magnesium 2.0, Total Bilirubin 1.6 H, AST 31, ALT 45, Alkaline Phosphatase 79, Lipase 214 Assessment and Plan - Problems (Diagnosis) (1) Acute heart failure Current Visit: Yes Status: Acute (2) Pneumonia Current Visit: Yes Status: Acute (3) Chest pain Current Visit: Yes Status: Acute (4) COPD exacerbation Current Visit: No Status: Acute (5) Liver cirrhosis Current Visit: No Status: Acute - Plan Admit patient to the medical floor. Start IV Levaquin for pneumonia IV Lasix for acute CHF Patient recently admitted and had an echocardiogram. Pulmonary edema is new so we will repeat the echo. Treat COPD exacerbation with scheduled bronchodilators and IV steroid. Monitor and replete electrolytes as needed Supplemental oxygen as needed. Trend troponin. - Advance Directives Does patient have a Living Will: No Does patient have a Durable POA for Healthcare: No
[2021-11-19] MEDS ORDERED: ACETAMINOPHEN 500 MG TAB PO PRN (13:03)
[2021-11-19] MEDS ORDERED: ONDANSETRON 4 MG/2 ML VIAL IV PRN (13:03)
[2021-11-19] MEDS: IPRATROPIUM BROM 0.5MG/2.5ML NEB SCH ×2 (14:00→21:00)
[2021-11-19] MEDS ORDERED: Levofloxacin 750mg IV 750 MG/150 ML BAG IV ONE (14:25)
[2021-11-19] MEDS ORDERED: METHYLPREDNISOLONE 40 MG INJ ONE (14:25)
[2021-11-19] MEDS: Levofloxacin 750mg IV 750 MG/150 ML BAG IV SCH (14:32)
[2021-11-19 14:52] VITALS: BMI 30.9
[2021-11-19] MEDS: METHYLPREDNISOLONE 40 MG INJ IV SCH (17:07)
[2021-11-19] MEDS: FUROSEMIDE 40 MG/4 ML VIAL IV SCH (17:07)
[2021-11-20] MEDS ORDERED: MORPHINE 4 MG/ML SYR IV ONE (00:09)
[2021-11-20] MEDS: METHYLPREDNISOLONE 40 MG INJ IV SCH ×3 (00:21→16:43)
[2021-11-20] MEDS: IPRATROPIUM BROM 0.5MG/2.5ML NEB SCH ×4 (02:20→19:42)
[2021-11-20 06:39] LABS: BUN Blood Urea Nitrogen 22 mg/dL (7-18); Bicarbonate 29 mmol/L (21-32); Glucose Level 151 mg/dL (74-106); HDL Cholesterol 84 mg/dL (40-60); LDL Cholesterol, Calculated 95 mg/dL (<130); Magnesium 1.9 mg/dL (1.8-2.4); Phosphorus 3.7 mg/dL (2.5-4.9); Potassium 4.3 mmol/L (3.5-5.1); Sodium Level 136 mmol/L (136-145)
[2021-11-20 06:45] LABS: Absolute Lymphocytes (CBC) 0.4 K/uL (0.7-4.9); Hematocrit 39.4 % (39.6-49.0); Lymphocytes % 8.4 % (15.3-44.8); MPV 7.7 fL (7.6-11.3); RBC Red Blood Cell Count 4.17 M/uL (4.33-5.43)
[2021-11-20] MEDS: FUROSEMIDE 40 MG/4 ML VIAL IV SCH ×2 (09:03→16:43)
[2021-11-20] MEDS: ENOXAPARIN 40 MG/0.4 ML SQ SCH (09:04)
[2021-11-20] MEDS: ASPIRIN EC 81 MG TAB PO SCH (09:05)
--- NOTE | 2021-11-20 12:00 | P.PN ---
Subjective Date of Service: 11/20/21 Chief Complaint: Shortness of breath and chest pain Patient states he feels better. He still complaining of pleuritic chest pain. Physical Examination - Vital Signs Temperature: 97.0 F Blood Pressure: 132/83 Pulse: 84 Respirations: 20 Pulse Ox (%): 96 - Studies Microbiology Data (last 24 hrs): 11/19/21 08:30 Blood - Blood Anaerobic Blood Culture - Final Assessment And Plan - Current Problems (Diagnosis) (1) Acute heart failure Current Visit: Yes Status: Acute (2) Pneumonia Current Visit: Yes Status: Acute (3) Chest pain Current Visit: Yes Status: Acute (4) COPD exacerbation Current Visit: No Status: Acute (5) Liver cirrhosis Current Visit: No Status: Acute - Plan Physical Exam General: Alert, In no apparent distress, Oriented x3 HEENT: Mucous membr. moist/pink Neck: Supple, JVD not distended Respiratory: Normal air movement, Crackles/rales (Bilateral) Cardiovascular: Regular rate/rhythm, Normal S1 S2, Edema (Bilateral legs) Gastrointestinal: Normal bowel sounds, Soft and benign, Non-distended, No tenderness Musculoskeletal: No tenderness, Swelling (Bilateral legs) Integumentary: No cyanosis, Other (Bilateral venous stasis dermatitis) Neurological: Normal strength at 5/5 x4 extr, Cranial nerves 3-12 intact Continue IV Levaquin for pneumonia Continue IV Lasix for acute CHF Follow-up echocardiogram Continue scheduled bronchodilators and IV steroid. Monitor and replete electrolytes as needed Pain management as needed Supplemental oxygen as needed. Troponin trended negative. No ACS.
[2021-11-20] MEDS: Levofloxacin 750mg IV 750 MG/150 ML BAG IV SCH (13:28)
[2021-11-20] MEDS: HYDROCODONE/APAP 5/325 MG TAB PO PRN (13:28)
[2021-11-21] MEDS: METHYLPREDNISOLONE 40 MG INJ IV SCH ×3 (01:45→16:52)
[2021-11-21] MEDS: HYDROCODONE/APAP 5/325 MG TAB PO PRN ×2 (01:45→12:59)
[2021-11-21] MEDS: IPRATROPIUM BROM 0.5MG/2.5ML NEB SCH ×4 (02:55→20:20)
[2021-11-21 03:28] LABS: Absolute Lymphocytes (CBC) 0.5 K/uL (0.7-4.9); Hematocrit 38.5 % (39.6-49.0); Lymphocytes % 8.1 % (15.3-44.8); MPV 7.4 fL (7.6-11.3); RBC Red Blood Cell Count 4.06 M/uL (4.33-5.43)
[2021-11-21 04:18] LABS: BUN Blood Urea Nitrogen 23 mg/dL (7-18); Bicarbonate 32 mmol/L (21-32); Glucose Level 172 mg/dL (74-106); Potassium 4.3 mmol/L (3.5-5.1); Sodium Level 136 mmol/L (136-145)
[2021-11-21] MEDS: ALBUTEROL 2.5 MG/3 ML NEB SOL NEB PRN ×2 (07:47→20:20)
[2021-11-21] MEDS: FUROSEMIDE 40 MG/4 ML VIAL IV SCH ×2 (08:39→16:52)
[2021-11-21] MEDS: ASPIRIN EC 81 MG TAB PO SCH (08:39)
[2021-11-21] MEDS: ENOXAPARIN 40 MG/0.4 ML SQ SCH (08:40)
--- NOTE | 2021-11-21 13:12 | P.PN ---
Subjective Date of Service: 11/21/21 Chief Complaint: Shortness of breath and chest pain Patient states he continues to improve. He remains on oxygen. He has been ambulatory. His legs edema have significantly improved. Physical Examination - Vital Signs Temperature: 97.4 F Blood Pressure: 139/73 Pulse: 92 Respirations: 20 Pulse Ox (%): 95 - Studies Microbiology Data (last 24 hrs): 11/19/21 08:30 Blood - Blood Anaerobic Blood Culture - Final Assessment And Plan - Current Problems (Diagnosis) (1) Acute heart failure Current Visit: Yes Status: Acute (2) Pneumonia Current Visit: Yes Status: Acute (3) Chest pain Current Visit: Yes Status: Acute (4) COPD exacerbation Current Visit: No Status: Acute (5) Liver cirrhosis Current Visit: No Status: Acute - Plan Physical Exam General: Alert, NAD. HEENT: Mucous membr. moist/pink Neck: Supple, JVD not distended Respiratory: Normal air movement, mild bibasilar crackles. Cardiovascular: Regular rate/rhythm, Normal S1 S2, bilateral lower extremity edema. Gastrointestinal: Normal bowel sounds, Soft and benign, Non-distended, No tenderness Musculoskeletal: No tenderness. Integumentary: No cyanosis. Neurological: Normal strength at 5/5 x4 extr, Cranial nerves 3-12 intact Continue IV Levaquin for pneumonia Continue IV Lasix for acute CHF for 1 more day. Follow-up echocardiogram Continue scheduled bronchodilators and IV steroid. Monitor and replete electrolytes as needed Pain management for pleuritic chest pain Supplemental oxygen as needed. Troponin trended negative. No ACS.
[2021-11-21] MEDS: Levofloxacin 750mg IV 750 MG/150 ML BAG IV SCH (14:21)
[2021-11-22] MEDS: HYDROCODONE/APAP 5/325 MG TAB PO PRN (00:36)
[2021-11-22] MEDS: METHYLPREDNISOLONE 40 MG INJ IV SCH ×2 (00:37→09:16)
[2021-11-22] MEDS: ALBUTEROL 2.5 MG/3 ML NEB SOL NEB PRN (02:00)
[2021-11-22] MEDS: IPRATROPIUM BROM 0.5MG/2.5ML NEB SCH ×2 (02:00→07:38)
[2021-11-22 03:47] LABS: Absolute Lymphocytes (CBC) 0.3 K/uL (0.7-4.9); Lymphocytes % 7.1 % (15.3-44.8); MPV 7.7 fL (7.6-11.3); RBC Red Blood Cell Count 4.11 M/uL (4.33-5.43)
[2021-11-22 04:05] LABS: BUN Blood Urea Nitrogen 19 mg/dL (7-18); Bicarbonate 32 mmol/L (21-32); Glucose Level 203 mg/dL (74-106); Sodium Level 134 mmol/L (136-145)
[2021-11-22 08:31] VITALS: O2SAT 96
[2021-11-22] MEDS: ASPIRIN EC 81 MG TAB PO SCH (09:15)
[2021-11-22] MEDS: FUROSEMIDE 40 MG/4 ML VIAL IV SCH (09:15)
[2021-11-22] MEDS: ENOXAPARIN 40 MG/0.4 ML SQ SCH (09:16)
[2021-11-22] MEDS ORDERED: ALBUTEROL 2.5 MG/3 ML NEB SOL NEB PRN (12:00)
[2021-11-22 12:21] VITALS: BP 142/77; TEMP 97.5
--- NOTE | 2021-11-22 12:27 | P.DS ---
Admission Date: 11/19/21 Discharge Date: 11/22/21 Disposition: ROUTINE DISCHARGE Discharge Condition: FAIR Reason for Admission: Shortness of breath and chest pain - Problems (1) Acute heart failure Current Visit: Yes Status: Acute (2) Pneumonia Current Visit: Yes Status: Acute (3) Chest pain Current Visit: Yes Status: Acute (4) COPD exacerbation Current Visit: No Status: Acute (5) Liver cirrhosis Current Visit: No Status: Acute Brief History of Present Illness: 61-year-old gentleman with a history of COPD and liver cirrhosis presented to the emergency department with a complaint of chest pain of 21 days duration, associated shortness of breath. Patient also reports increased lower extremity swelling. Chest pain described as pleuritic, worse with deep breathing and coughing. Patient reports cough productive of yellowish sputum. He also reports orthopnea and paroxysmal nocturnal dyspnea. Checks x-ray done in the emergency department demonstrate pulm edema and bibasilar pneumonia. Troponin negative. Patient admitted for further management of new onset CHF and pneumonia. Hospital Course: Patient admitted to the medical floor and treated for CHF exacerbation with IV Lasix. He diuresed well, lower extremity edema resolved, patient shortness of breath also improved. Patient was at baseline oxygen of 2 L by nasal cannula. He was also treated for COPD exacerbation with IV steroid and scheduled bronchodilators. Chest x-ray demonstrated pneumonia patient was treated with IV Levaquin. He has clinically improved, he is eating well, he is ambulatory just oxygen and vitals stable. Patient deemed stable for discharge. He is discharged with a tapering dose of prednisone, oral Levaquin to continue treatment for the pneumonia. Vital Signs/Physical Exam: Temp Pulse Resp BP Pulse Ox 97.5 F 89 20 142/77 H 95 11/22/21 12:00 11/22/21 12:00 11/22/21 12:00 11/22/21 12:00 11/22/21 12:00 General: Alert, In no apparent distress, Oriented x3, Obese HEENT: Mucous membr. moist/pink Neck: JVD not distended Respiratory: Clear to auscultation bilaterally, Normal air movement Cardiovascular: Regular rate/rhythm, Normal S1 S2, Edema (Trace bilateral lower extremity edema) Gastrointestinal: Soft and benign, Non-distended Musculoskeletal: No tenderness Integumentary: No erythema, No cyanosis Neurological: Normal strength at 5/5 x4 extr Laboratory Data at Discharge: WBC 4.5 K/uL (4.3-10.9) D 11/22/21 03:28 Hgb 13.1 g/dL (13.6-17.9) L 11/22/21 03:28 Hct 39.0 % (39.6-49.0) L 11/22/21 03:28 Plt Count 65 K/uL (152-406) L 11/22/21 03:28 PT 12.2 SECONDS (9.5-12.5) 11/19/21 08:05 INR 1.11 11/19/21 08:05 APTT 29.2 SECONDS (24.3-36.9) 11/19/21 08:05 Sodium 134 mmol/L (136-145) L 11/22/21 03:28 Potassium 4.0 mmol/L (3.5-5.1) 11/22/21 03:28 BUN 19 mg/dL (7-18) H 11/22/21 03:28 Creatinine 0.57 mg/dL (0.55-1.3) 11/22/21 03:28 Glucose 203 mg/dL (74-106) H 11/22/21 03:28 Phosphorus 3.7 mg/dL (2.5-4.9) 11/20/21 05:54 Magnesium 1.9 mg/dL (1.8-2.4) 11/20/21 05:54 Total Bilirubin 1.6 mg/dL (0.2-1.0) H 11/19/21 08:05 AST 31 U/L (15-37) 11/19/21 08:05 ALT 45 U/L (12-78) 11/19/21 08:05 Alkaline Phosphatase 79 U/L (45-117) 11/19/21 08:05 Triglycerides 40 mg/dL (<150) 11/20/21 05:54 Cholesterol 187 mg/dL (<200) 11/20/21 05:54 HDL Cholesterol 84 mg/dL (40-60) H 11/20/21 05:54 Cholesterol/HDL Ratio 2.23 11/20/21 05:54 Lipase 214 U/L (73-393) 11/19/21 08:05 Home Medications: Gabapentin 300 mg PO BID #60 08/25/21 Ipratropium/Albuterol Sulfate [Iprat-Albut 0.5-3(2.5) mg/3 ml] 3 ml NEB Q6H #60 ampul.neb 08/25/21 Mometasone/Formoterol [Dulera 200 Mcg/5 Mcg Inhaler] 2 puff IH BID #1 inhaler 08/25/21 Albuterol Neb [Proventil 0.083% Neb Soln] 2.5 mg NEB [id number] PRN #60 amp Apixaban [Eliquis *] 2.5 mg PO BID #60 tablet 11/03/21 Atorvastatin Calcium [Lipitor] 40 mg PO BEDTIME #30 tab 11/03/21 Metoprolol Succinate 25 mg PO DAILY 11/19/21 Aspirin [Aspirin EC 81 MG] 81 mg PO DAILY #30 tablet. 11/22/21 Furosemide [Lasix*] 40 mg PO BID #60 tab 11/22/21 levoFLOXacin [Levaquin] 750 mg PO DAILY #5 tab 11/22/21 predniSONE [Deltasone*] 10 mg PO DAILY #30 tab 11/22/21 New Medications: Aspirin [Aspirin EC 81 MG] 81 mg PO DAILY #30 tablet. predniSONE [Deltasone*] 10 mg PO DAILY #30 tab Furosemide [Lasix*] 40 mg PO BID #60 tab levoFLOXacin [Levaquin] 750 mg PO DAILY #5 tab Diet: AHA Activity: Ad ivan Followup: NONE,NONE [Primary Care Provider] - Manuel Joya MD [ACTIVE - CAN ADMIT] - 1-2 Weeks Richardson Douglass MD [ACTIVE - CAN ADMIT] - 1-2 Weeks Time spent managing pt's care (in minutes): 35
--- NOTE | 2021-11-23 07:04 | ECHO ---
HEIGHT: 5 ft 11 in WEIGHT: 222 lb 0.088 oz DATE OF STUDY: 11/20/[address]: erica haq 2-DIMENSIONAL: YES M.MODE: YES DOPPLER: YES COLOR FLOW: YES TDS: PORTABLE: YES DEFINITY: BUBBLE STUDY: DIAGNOSIS: CHEST PAIN CARDIAC HISTORY: CATHERIZATION: SURGERY: PROSTHETIC VALVE: PACEMAKER: MEASUREMENTS (cm) DIASTOLIC (NORMALS) SYSTOLIC (NORMALS) IVSd 1.2 (0.6-1.2) LA Diam 4.0 (1.9-4.0) LVEF 66% LVIDd 4.1 (3.5-5.7) LVIDs 2.6 (2.0-3.5) %FS 36% LVPWd 1.2 (0.6-1.2) Ao Diam 3.2 (2.0-3.7) 2 DIMENSIONAL ASSESSMENT: RIGHT ATRIUM: NORMAL LEFT ATRIUM: NORMAL RIGHT VENTRICLE: NORMAL LEFT VENTRICLE: NORMAL TRICUSPID VALVE: NORMAL MITRAL VALVE: NORMAL PULMONIC VALVE: NORMAL AORTIC VALVE: NORMAL PERICARDIAL EFFUSION: NONE AORTIC ROOT: NORMAL LEFT VENTRICULAR WALL MOTION: NORMAL DOPPLER/COLOR FLOW: SEE BELOW COMMENTS: NORMAL LEFT VENTRICULAR EJECTION FRACTION 60-65%. NORMAL WALL MOTION. MILD AORTIC VALVE CALCIFICATION. TECHNOLOGIST: ENRIQUETA PIÑA
== END 2021-11-22 13:47 | disposition home or self-care (01) | DRG 193 ==
LOC: ER 06:54 → ERHOLD 12:40 → 2ND 16:31
PROVIDERS: ADMIT Internal Medicine; ATTEND Internal Medicine
DX: J18.9 Pneumonia, unspecified organism (principal); I50.21 Acute systolic (congestive) heart failure; J44.0 Chronic obstructive pulmonary disease with (acute) lower respiratory infection; J44.1 Chronic obstructive pulmonary disease with (acute) exacerbation; I11.0 Hypertensive heart disease with heart failure; K74.60 Unspecified cirrhosis of liver; I87.2 Venous insufficiency (chronic) (peripheral); Z20.822 Contact with and (suspected) exposure to COVID-19; Z99.81 Dependence on supplemental oxygen
CPT/HCPCS: 0240U; 36415; 71045; 80048; 80061; 80076; 82550; 82553; 83690; 83735; 83880; 84100; 84484; 85025; 85379; 85610; 85730; 87040; 93005; 93306; 94640; 94760; 96365; 96375; 99284; J0456; J1650; J1940; J2405; J2920; J2930; J7050

== ENCOUNTER 2021-11-26 02:56 | Inpatient (IN) | payer OTHER, SELFPAY ==
--- OUTSIDE RECORDS SUMMARY | 2021-11-26 03:00 | XMS REPORT | Continuity of Care Document ---
:1960 Author Organization [facility] t Address [address] [place] [address] Care Team Providers Name Role Phone PHONG [...] exacerbati exacerb[place] Obesity Obesity Disease Active Univers (BMI (BMI 4-06 ity of 30-39.9) 30-39.9) 00:00: [address] COPD COPD Disease Active Univers exacerbati exacerbati 4-06 it y of on on 00:00: [address] Troponin I Troponin I Disease Active U nivers above above 4-06 ity of reference reference 00:00: Ray s range range [facility] Cigarette Cigarette Disease Active Uni vers smoker smoker -06 ity of 00:00: [place] 00 [facility] Chest pain Chest pain Disease Active U nivers 4-05 ity of 00:00: [address] Allergies, Adverse Reactions, Alerts Allergy Allergy Status Severity Reaction(s) Onset Inactive Treating Comm ents Source Name Type Date Date Clinician Seafood/ Propensi Active Rash 2018-08 Univer s Fish ty to 2-17 ity of adverse 00:00: [place] reaction 00 [facility] SEAFOOD/ Food Active Rash 2018-08 Univers FISH 2-17 ity of 00:00: [address] Social History Social Habit Start Date Stop Date Quantity Comments Source Exposure to Not sure [facility] SARS-CoV-2 [facility] (event) Brothers Alcohol intake 2021-11-04 2021-11-04 Ex-drinker [facility] 00:00:00 00:00:00 (finding) [facility] Education 2021-11-04 2021-11-04 9 University 00:00:00 00:00:00 [facility] Tobacco use and 2019-05-29 2019-05-29 Current user Univers ity of exposure 00:00:00 00:00:00 [facility] History of 2017-05-29 Smoker University of tobacco use 00:00:00 [facility] Sex [birth year] Universit y of 00:00:00 00:00:00 [facility] [place] [facility] Smoking Status Start Date Stop Date Source Former smoker 2019-05-29 00:00:00 2019-05-29 00:00:00 Universi ty of [facility] Medications Ordered Filled Start Stop Current Ordering Indication Dosage Frequency Signature Comments Components Source Medication Medication Date Date Medication? Clinician (SIG) Name Name veenai 2021- Yes 500mg 500 mg, U nivers n -08 04-09 Oral, ity of (ZITHROMAX) 13:00: 00:59 [place]CE[place] 1 [place] 500 00 :00 dose, On Medic al mg 11/06/21 Branch at 0800, Routine
Reason for Anti-Infec tive: Empiric Therapy for Suspected Infection< br>Empiric Therapy Site: Respirator y
Durat ion of therapy: 72 hours aspirin 2021- Yes [id number] 325mg Take 1 U nivers E.C. 325 mg 11-06-09 tablet by it y of EC tablet 00:00: 04:59 mouth [place] 00 :00 daily with Medical breakfast Brothers for 30 days. cholecalcif 2021- Yes [id number] 2000U Take 2 Univers tere, 4- 05-09 tablets by ity of vitamin D3, 00:00[place] 04[place] 25 mcg 00 :00 daily for Medical (,000 30 days. Branch unit) tablet metoprolol 2021- Yes [id number] 25mg Take 1 Univers succinate 11-06 05-09 tablet by ity of XL 25 mg 24 00:00: 04:59 [place] tablet 00 :00 daily for Medic al 30 days. Branch aspirin 2021- Yes [id number] 325mg Take 1 U nivers E.C. 325 mg 11-06-09 tablet by it y of EC tablet 00:00: 04:59 mouth [place] 00 :00 daily with Medical breakfast Brothers for 30 days. cholecalcif 2021- Yes [id number] 2000U Take 2 Univers tere, 11-06-09 tablets by ity of vitamin D3, 00:00: 04:59 [place] 25 mcg 00 :00 daily for Medical (,000 30 days. Branch unit) tablet metoprolol 2021- Yes [id number] 25mg Take 1 Univers succinate 11-06-09 tablet by ity of XL 25 mg 24 00:00: 04:59 [place] tablet 00 :00 daily for Medic al 30 days. Branch predniSONE 2021- Yes [id number] 50mg Take 1 Univers 50 mg 11-06-12 tablet by ity of tablet 00:00: 04:59 mouth [place] 00 :00 every day Medical at 1200 Branch (noon) for 3 days. predniSONE 2021- Yes [id number] 50mg Take 1 Univers 50 mg 4- 04-12 tablet by ity of tablet 00:00: 04:59 mouth [place] 00 :00 every day Medical at 1200 Branch (noon) for 3 days. mometasone/ Yes Inhale. Uni vers formoterol 4-07 ity of (DULERA 18:48: [place] INHALE) 11 Medical Branch mometasone/ Yes Inhale. Uni vers formoterol 4-07 ity of (DULERA 18:48: [place] INHALE) 11 Medical Branch cholecalcif Yes 2000U 2,000 [facility] ers tere 4-07 Units, ity of (vitamin [...] Unsure on dose ALBUTEROL 2021- No Inhale. [facility] ers INHALE 4-07 04-07 ity of 14:03: 00:00 [place] 31 :00 Medical Branch albuterol Yes [id number] 2{puff} Inhale 2 Univers 90 4-07 Puffs ity of mcg/actuati 00:00: every 6 [place] on inhaler 00 (six) Medical hours as Branch needed for Wheezing or Shortness of Breath. Budesonide Yes [id number] 1{puff} Inhale 1 Univers 90 4-07 Puff every ity of mcg/actuati 00:00: morning [place] on aerosol 00 and Medical powder evening. Branch HYDROcodone Yes [id number] 1{tbl} Take 1 Un savanna -acetaminop 4-07 tablet by ity of hen 5-325 00:00: mouth [place] mg tablet 00 every 6 Medical (six) Branch hours as needed for Pain (scale 4-6). Indication s: acute pain albuterol Yes [id number] 2{puff} Inhale 2 Univers 90 4-07 Puffs ity of mcg/actuati 00:00: every 6 [place] on inhaler 00 (six) Medical hours as Branch needed for Wheezing or Shortness of Breath. Budesonide Yes [id number] 1{puff} Inhale 1 Univers 90 4-07 Puff every ity of mcg/actuati 00:00: morning [place] on aerosol 00 and Medical powder evening. Brothers HYDROcodone Yes [id number] 1{tbl} Take 1 Un [place] -acetaminop -07 tablet by ity of hen 5-325 00:00: mouth [place] mg tablet 00 every 6 Medical (six) Branch hours as needed for Pain (scale 4-6). Indication s: acute pain gabapentin 2021- Yes [id number] 300mg Take 1 Univers 300 mg 11-05 capsule by ity of capsule 00:00: 04:59 mouth 2 [place] 00 :00 (two) Medical times Branch daily for 30 days. gabapentin 2021- Yes [id number] 300mg Take 1 Univers 300 mg 11-05- capsule by ity of capsule 00:00: 04:59 mouth 2 [place] 00 :00 (two) Medical times Brothers daily for 30 days. azithromyci 2021- Yes [id number] 500mg Take 1 Univers n 500 mg 11-0510 tablet by ity o f tablet 00:00: 04:59 mouth [place] 00 :00 daily for Medical 2 doses. Brothers azithromyci 2021- Yes [id number] 500mg Take 1 Univers n 500 mg 11-0510 tablet by ity o f tablet 00:00: 04:59 mouth [place] 00 :00 daily for Medical 2 doses. Brothers enoxaparin Yes 30mg 30 mg, Unive rs (LOVENOX) 11-04 Subcutaneo ity of injection 22:00: [place]ILY, [place] 30 [place] 00 First dose Medical on Tue11/04/21 at 1700, Until Discontinu ed, Routine sulfur 2021- No [id number] 5mL 5 mL, Univ ers hexafluorid 11-04-06 Intravenou i ty of e microsphr 17:45: 17:45 s, ONCE, 1 [place] (LUMASON) 00 :00 dose, On Medica l injection Tue11/04/21 Br anch mL at 1245, Routine
solar crew member approving Restricted medication : ERIC ARANA predniSONE Yes 50mg 50 mg, Unive rs (DELTASONE) 4-06 Oral, ity of tablet 50 17:00: QNOON, [place] mg 00 First dose Medical on Tue Branch 11/04/21 at 1200, Until Discontinu ed, Routine morpHINE 2021- No 2mg 2 mg, Slow Un savanna [...] Oral, ity of XL (TOPROL 14:00: DAILY, [place] XL) tablet 00 First dose Med ical [...]
Durat ion of therapy: 7 days aspirin 0 Yes 325mg 325 mg, Univer s E.C. 4- Oral, QAM ity of (ECOTRIN) 08:30: WITH [place] tablet 325 00 BREAKFAST, Med ical mg First dose Branch on Tue11/04/21 at 0330, Until Discontinu ed, Routine budesonide Yes .5mg 0.5 mg, Univ ers (PULMICORT - Inhalation ity of RESPULE) 08:00: , BID, [place] nebulizer 00 First dose Medi reynaldo solution on Tue Branch 0.5 mg 11/04/21 at 0300, Until Discontinu ed, Routine ipratropium 2022-0 Yes 3mL 3 mL, Unive rs -albuteroL 4-06 Inhalation ity of (DUONEB) 08:00: , Q4H, [...] No 3mL 3 mL, Univ ers -albuteroL 11-04-06 Inhalation it y of (DUONEB) 04:45: 03:59 , ONCE, 1 [place] 0.5 mg-3 00 :00 dose, On Medical mg(2.5 mg Tue11/03/21 Bran ch base)/3 mL at 2345, nebulizer Routine solution 3 mL methylpredn 2021-0 2021- No 125mg 125 mg, IV Univers isolone sod 11-04-06 Piggyback, i ty of succ 04:45: 04:59 ONCE, 1 [place] (SOLU-MEDRO 00 :00 dose, On Medi reynaldo L) Tue11/03/21 Branch injection at 2345, 125 mg LARRY Vital Signs Vital Name Observation Time Observation Value Comments Source Oxygen saturation in 2021-11-05 21:30:00 93 /min [facility] Arterial blood by [facility] Pulse oximetry Branch Respiratory rate 2021-11-05 21:30:00 20 /min [facility] Systolic blood 2021-11-05 16:16:00 116 mm[Hg] [facility] Diastolic blood 2021-11-05 16:16:00 71 mm[Hg] [facility] Heart rate 2021-11-05 16:16:00 95 /min [facility] Body temperature 2021-11-05 16:16:00 36.28 Lesley [facility] Body weight 2021-11-05 09:32:00 100.971 kg [facility] BMI 2021-11-05 09:32:00 31.05 kg/m2 [facility] Body height 2021-11-04 17:37:00 180.3 cm [facility] Procedures Procedure Date / Time Performing Clinician Source Performed MAGNESIUM 2021-11-05 16:31:00 Nader Cross [facility] COMP. METABOLIC PANEL 2021-11-05 16:31:00 Nader Cross [facility] ([id number]) [facility] LIPID PANEL (64768)(TOTAL 2021-11-05 16:31:00 Jorge Fernández [facility] CHOLESTEROL, [facility] TRIGLYCERIDES, HDL) TROPONIN I 2021-11-05 09:50:00 America edmond [facility] FREE T4 2021-11-05 09:50:00 Jorge Fernández [facility] THYROID STIMULATING 2021-11-05 09:50:00 Jorge Fernández [facility] HORMONE [facility] N-TERMINAL PRO-BNP 2021-11-05 09:50:00 Nader Cross [facility] TROPONIN I 2021-11-04 23:44:00 Nader Cross [facility] TRANSTHORACIC ECHO (TTE) 2021-11-04 17:37:10 Nader Cross [facility] COMPLETE W/ CONTRAST Medical [facility] PHOSPHORUS 2021-11-04 12:05:00 America edmond [facility] URIC ACID 2021-11-04 12:05:00 America edmond [facility] MAGNESIUM 2021-11-04 12:05:00 America edmond [facility] TROPONIN I 2021-11-04 12:05:00 America edmond [facility] LIPID PANEL (74290)(TOTAL 2021-11-04 12:05:00 Nader Cross [facility] CHOLESTEROL, [facility] TRIGLYCERIDES, HDL) VITAMIN B12, LEVEL 2021-11-04 08:48:00 America edmond [facility] TROPONIN I 2021-11-04 08:48:00 America edmond [facility] SEDIMENTATION RATE 2021-11-04 08:48:00 America edmond [facility] VITAMIN D, 25-OH 2021-11-04 08:48:00 America [facility] PROCALCITONIN 2021-11-04 08:48:00 America [facility] URINE DRUG (IMMUNOASSAY) 2021-11-04 08:08:00 Nader Cross [facility] COMPREHENSIVE DRUG Medical [facility] SCREEN URINALYSIS 2021-11-04 08:08:00 America edmond [facility] URINE CULTURE 2021-11-04 08:08:00 America edmond [facility] UREA NITROGEN, URINE 2021-11-04 08:08:00 Nader Cross [facility] SODIUM, URINE RANDOM 2021-11-04 08:08:00 America edmond [facility] PROTEIN CREAT RATIO URINE 2021-11-04 08:08:00 Nader Cross [facility] RESPIRATORY PANEL BY PCR 2021-11-04 08:08:00 Nader Cross [facility] COVID-19 (ID NOW RAPID 2021-11-04 04:03:00 Sheba Lott [facility] TESTING) Medical Branch LAB ONLY COVID 2021-11-04 04:03:00 Sheba Lott [facility] [place] INTERPRETATION [facility] XR CHEST 1 VW 2021-11-04 02:57:00 Birgit Lemon [facility] ACUTE CARE ARTERIAL BLOOD 2021-11-04 02:57:00 [facility] LIPASE 2021-11-04 02:45:00 Birgit Lemon [facility] TROPONIN I 2021-11-04 02:45:00 Birgit Lemon [facility] COMP. METABOLIC PANEL 2021-11-04 02:45:00 Birgit Lemon [facility] ([id number]) [facility] CBC WITH DIFF 2021-11-04 02:45:00 Birgit Lemon [facility] GLYCOSYLATED HEMOGLOBIN 2021-11-04 02:45:00 Nader Cross [facility] (A1C) [facility] PROTHROMBIN TIME / INR 2021-11-04 02:45:00 Birgit Lemon [facility] ACTIVATED PARTIAL 2021-11-04 02:45:00 Birgit Lemon [facility] THRLAS [facility] HB ECG ROUTINE & RHYTHM 2021-11-04 02:13:29 Birgit Lemon [facility] NOTICE OF PRIVACY 2021-11-04 01:59:17 Doctor Unassigned, [facility] PRACTICES [facility] CONSENT/REFUSAL FOR 2021-11-04 01:58:37 Doctor Unassigned, [facility] DIAGNOSIS AND TREATMENT [place] [facility] Encounters Start End Encounter Admission Attending Care Care Encounter Source Date/Time Date/Time Type Type Clinicians Facility Department ID 2021-11-06 2021-11-06 Transition BALBINA DavidsonRosa [id number] Univers 00:00:00 00:00:00 of Care Nickie LOYD [id number] Maximilian [id number] [facility] [id number] [facility] 403 Branch 2021-11-03 2021-11-05 Outpatient X [facility] [id number] [facility] 21:06:00 18:36:00 ALEXIS [facility] 2021-11-03 2021-11-05 [facility] L[facility] [id number] [facility] 21:06:00 18:36:00 Encounter AmericaNader agudelo [id number] [facility] Alexis Carey [place] [id number] [facility] [id number] [facility] 081 Branch Results Test Description Test Time Test Comments Results Result Comments Source LIPID PANEL (71837)(TOTAL CHOLESTEROL, TRIGLYCERIDES, HDL) 17:05:42 Test Item Value Reference Range Interpretation Comme nts CHOL (test code = 7270428755) 186 mg/dL 120-200 HDL (test code = 5167749507) 45 mg/dL >40 HDLC RATIO (test code = See_Comment [Au tomated message] The 2146744411) system which [employer] nerated this result transmit michael reference range: <=5.0. T he reference range was not u sed to interpret this result as normal/abnormal . TRIG (test code = 2593534509) 64 mg/dL 30-170 LDL CHOL (test code = 33466-7) 128 mg/dL See_Comment [Automated message] The system which [employer] nerated this result transmit michael reference range: <=160. T he reference range was not u sed to interpret this result as normal/abnormal . VLDL (test code = 4821516694) 13 mg/dL 5-60 Lab Interpretation (test code = Normal 02837-3) [facility] (20686)2021-11-05 17:05:21 Test Item Value Reference Range Interpretation Comments NA (test code = 138 mmol/L 135-145 1908498939) K (test code = 4.6 mmol/L 3.5-5.0 3394883837) CL (test code = 104 mmol/L 98-108 5544946535) CO2 TOTAL (test code = 30 mmol/L 23-31 5828349673) AGAP (test code = 2-16 6426858393) BUN (test code = 20 mg/dL 7-23 0074655127) GLUCOSE (test code = 102 mg/dL 70-110 8034173129) CREATININE (test code = 0.63 mg/dL 0.60-1.25 8160764656) TOTAL BILI (test code = 1.2 mg/dL 0.1-1.1 H 2931826807) CALCIUM (test code = 9.0 mg/dL 8.6-10.6 5157822544) T PROTEIN (test code = 6.6 g/dL 6.3-8.2 1907221738) ALBUMIN (test code = 3.2 g/dL 3.5-5.0 L 0608594893) ALK PHOS (test code = 75 U/L 34-122 3532618451) ALTv (test code = 35 U/L 5-50 1742-6) AST(SGOT) (test code = 39 U/L 13-40 9028117398) eGFR (test code = mL/min/1.73m2 6353787307) TIFFANY (test code = TIFFANY) Association of [...] tests). Lab Interpretation Abnormal (test code = 90025-4) [facility]2022-04-07 17:05:21 Test Item Value Reference Range Interpretation Comments MAGNESIUM (test code = 6479221899) 1.9 mg/dL 1.7-2.4 Lab Interpretation (test code = Normal 88007-5) [facility] Club[facility]YROID STIMULATING [id number] 12:35:38 Test Item Value Reference Range Interpretation Comments TSH (test code = See_Comment [Automated message] 5708940687) The system [employer] generated this result transmitted ref erence range: 0.45 - 4 .70 mIU/L. The refe rence range was not u sed to interpret this result as normal/abnor mal. Lab Interpretation (test Normal code = 88718-0) [facility] [id number] 12:22:17 Test Item Value Reference Range Interpretation Comments FREE T4 (test code = See_Comment [Autom ated message] 8320497119) The system [employer] generated this result transmitted ref erence range: 0.78 - 2 .20 ng/dL:. The ref erence range was not u sed to interpret this result as normal/abnor mal. Lab Interpretation (test Normal code = 95144-9) [facility] ClubTROP[facility] [id number] 12:16:59 Test Item Value Reference Interpretation Comments Range TROPONIN I (test 0.026 ng/mL See_Comment [Automated code = 5277986880) message] The system which generated this result [...] biotin. Lab Interpretation Normal (test code = 00959-0) [facility] ClubN-TERMINAL [id number] 12:13:58 Test Item Value Reference Range Interpretation Comments NT-proBNP (test code 228 pg/mL See_Comment H [Autom ated = 6919541968) message] The system which generated this result transmitted reference range : <=125. The reference range was not used to interpret this result as normal/abnormal . TIFFANY (test code = TIFFANY) Biotin has been reported to cause a negative bias, interpret results relative to patient's use of biotin. Lab Interpretation Abnormal (test code = 42204-8) [facility] ClubTransthoracic echo (TTE)2021-11-05 00:59:55 Test Item Value Reference Range Interpretation Comments LVIDD (test code = 4.50 cm 0454830168) IVS (test code = 1.10 cm 4102319064) Interventricular Septum 1.10 cm Diastolic Thickness by 2D (test code = 2981612) LVPWD (test code = 1.24 cm 2888637981) PW (test code = 1.24 cm 0.6-1.3 5545999582) LVOT diameter (test code 1.92 cm = 9569888165) ACS (test code = 1.82 cm 5077411671) Ao root annulus (test 3.5 cm code = 3054908878) Ao root diam (test code 3.50 cm = 6841122797) Aortic root (test code = 3.5 cm 8999866477) LA size (test code = 4.6 cm 5047758615) E wave decelartion time 0.21 s (test code = 0066690670) MV Peak E William (test code 64.9 cm/s = 0890049075) MV Peak A William (test code 83.8 cm/s = 3078089822) E/A ratio (test code = ratio 4977917870) MV Prop V (test code = 65.80 cm/s 4079592512) Tapse (test code = 1.92 cm 2193610771) LVOT stroke volume (test 67.60 cm3 code = 9610805942) LVOT peak william (test code 110.2 cm/s = 9760745059) LVOT mn grad (test code mmHg = 8631195354) AV LVOT peak gradient mmHg (test code = 4453935777) LVOT peak VTI (test code 23.3 cm = 9940373996) LV V1 mean (test code = 62.80 cm/s 9006061722) Aortic valve mean 129.2 cm/s velocity (test code = 9465234373) Ao peak william (test code = 230.1 cm/s 1423479302) Ao VTI (test code = 39.0 cm 0918372670) AV area by cont VTI 1.7 cm2 (test code = 1830000770) AV area peak william (test 1.4 cm2 code = 1230355137) Ao max PG (test code = 21.20 mm[Hg] 1362317226) AV peak gradient (test mmHg code = 0335208011) AV valve area (test code 1.73 cm2 = 8046489775) AV mean gradient (test mmHg code = 2988141828) TR Peak William (test code = 233.7 cm/s 6868048025) Triscuspid Valve mmHg Regurgitation Peak Gradient (test code = 6404678679) EF(Teich) (test code = 60.40 % 3056400879) LVIDS (test code = 3.10 cm 7528862138) FS (test code = 32 % 5998049971) EF - 2D (test code = 60.40 % 67005018) Radiology Study observation (narrative) (test code = 48531-8) TIFFANY (test code = TIFFANY) ?Left?Ventricle: Left [...] (99.8 kg) 2.23 sq meters 130/95 88 [facility] [id number] 00:28:36 Test Item Value Reference Interpretation Comments Range TROPONIN I (test 0.015 ng/mL See_Comment [Automated code = 0967579907) message] The system which generated this result [...] biotin. Lab Interpretation Normal (test code = 88735-3) [facility] ClubVIT[facility] D, [id number] 17:50:34 Test Item Value Reference Range Interpretation Comments VIT D 25OH (test code = 19 ng/mL 25-80 L 48174-6) TIFFANY (test code = TIFFANY) Deficiency: <20 ng/mLInsufficiency: 20-24 ng/mLOptimal: 25-80 ng/mL Lab Interpretation (test Abnormal code = 17281-5) [facility]ALCITONIN2022-04-06 16:54:29 Test Item Value Reference Range Interpretation Comments Procalcitonin (test 0.03 ng/mL <0.07 code = 0582841464) TIFFANY (test code = TIFFANY) INTERPRETATION OF [...] lung abscess/empyema. For further information please refer to:[email or web address] Lab Interpretation Normal (test code = 80770-3) [facility] Club[facility]IT[facility] B12, [id number] 16:39:51 Test Item Value Reference Range Interpretation Comments VIT B12 (test code = 636 pg/mL 240-930 6738070244) TIFFANY (test code = TIFFANY) Biotin has been reported to cause a positive bias, interpret results relative to patient's use of biotin. Lab Interpretation (test Normal code = 07601-5) [facility] ClubLIPID PANEL (62083)(TOTAL CHOLESTEROL, TRIGLYCERIDES, HDL)2021-11-04 15:21:56 Test Item Value Reference Range Interpretation Comments CHOL (test code = 183 mg/dL 120-200 3524166344) HDL (test code = 40 mg/dL >40 L 5505008849) HDLC RATIO (test code = See_Comment [Au tomated message] 3247957612) The system [employer] generated this result transmit michael reference range : <=5.0. The refe rence range was not u sed to interpret th is result as normal/abnormal . TRIG (test code = 57 mg/dL 30-170 4850613623) LDL CHOL (test code = 132 mg/dL See_Comment [Auto mated message] 51338-1) The system [employer] generated this result transmit michael reference range : <=160. The refe rence range was not u sed to interpret th is result as normal/abnormal . VLDL (test code = 11 mg/dL 5-60 2359496640) Lab Interpretation (test Abnormal code = 29027-4) [facility]2022-04-06 15:21:56 Test Item Value Reference Range Interpretation Comments MAGNESIUM (test code = 4233606358) 1.6 mg/dL 1.7-2.4 L Lab Interpretation (test code = Abnormal 84847-4) [facility]PHOSPHORUS2022-04-06 15:21:36 Test Item Value Reference Range Interpretation Comments PHOSPHORUS (test code = 3229975827) 3.1 mg/dL 2.5-5.0 Lab Interpretation (test code = Normal 39970-2) [facility] ClubURIC [id number] 15:21:16 Test Item Value Reference Range Interpretation Comments URIC ACID (test code = 5012689708) 4.4 mg/dL 3.6-8.0 Lab Interpretation (test code = Normal 58811-9) [facility] [id number] 13:34:13 Test Item Value Reference Interpretation Comments Range TROPONIN I (test 0.038 ng/mL See_Comment H [Automated code = 7988167171) message] The system which generated this result [...] biotin. Lab Interpretation Abnormal (test code = 70705-9) [facility] [id number] 11:19:15 Test Item Value Reference Range Interpretation Comments ESR (test code = See_Comment [Automated message] 7901412744) The system [employer] generated this result transmitted ref erence range: 0 - 10 m m/HR. The reference r laura was not used to interpret this result as normal/abnor mal. Lab Interpretation (test Normal code = 39294-9) [facility] [id number] 10:43:39 Test Item Value Reference Interpretation Comments Range TROPONIN I (test 0.037 ng/mL See_Comment H Hemolyzed code = 1208369644) specimen [Automated message] The system which generated [...] biotin. Lab Interpretation Abnormal (test code = 66158-6) [facility] ClubGLYCOSYLATED HEMOGLOBIN (A1C)2021-11-04 09:01:59 Test Item Value Reference Range Interpretation Comments HGB A1C (test code = 6.0 % 4.0-5.7 H 4548-4) TIFFANY (test code = TIFFANY) Reference RangesNormal: <5.7%Prediabetes: 5.7 - 6.4%Diabetes: > 6.5% Lab Interpretation (test Abnormal code = 27030-9) [facility] [id number] 03:17:54 Test Item Value Reference Interpretation Comments Range TROPONIN I (test 0.035 ng/mL See_Comment H [Automated code = 9269640552) message] The system which generated this result [...] biotin. Lab Interpretation Abnormal (test code = 46177-2) [facility] Club[facility]. METABOLIC PANEL (35207)2021-11-04 03:06:14 Test Item Value Reference Range Interpretation Comments NA (test code = 136 mmol/L 135-145 5602503731) K (test code = 4.4 mmol/L 3.5-5.0 0246213852) CL (test code = 99 mmol/L 98-108 0610677968) CO2 TOTAL (test code = 29 mmol/L 23-31 9042910545) AGAP (test code = 2-16 2829306398) BUN (test code = 22 mg/dL 7-23 4678969260) GLUCOSE (test code = 164 mg/dL 70-110 H 9990020476) CREATININE (test code = 0.72 mg/dL 0.60-1.25 5392979306) TOTAL BILI (test code = 1.8 mg/dL 0.1-1.1 H 8223298189) CALCIUM (test code = 9.3 mg/dL 8.6-10.6 3520033649) T PROTEIN (test code = 7.5 g/dL 6.3-8.2 1379661344) ALBUMIN (test code = 3.7 g/dL 3.5-5.0 8685646222) ALK PHOS (test code = 98 U/L 34-122 3323548821) ALTv (test code = 35 U/L 5-50 1742-6) AST(SGOT) (test code = 48 U/L 13-40 H 4544590131) eGFR (test code = mL/min/1.73m2 5310169909) TIFFANY (test code = TIFFANY) Association of [...] tests). Lab Interpretation Abnormal (test code = 41644-8) [facility] Club[facility]IP[facility], [id number] 03:05:54 Test Item Value Reference Range Interpretation Comments LIPASE (test code = 7935223403) 253 U/L 0-220 H Lab Interpretation (test code = Abnormal 27612-5) [facility] ClubaPTT2022-04-06 03:03:13 Test Item Value Reference Range Interpretation Comments APTT Patient (test See_Comment [Automat ed code = 3173-2) message] The system which generated this result transmitted reference range : 23 - 38 Seconds . The reference range was not used to interpr et this result as normal/abnormal . TIFFANY (test code = TIFFANY) The [facility] patient population mean normal value for aPTT is 30 seconds. Lab Interpretation Normal (test code = 07266-9) [facility] ClubPROTHROMBIN TIME / [id number] 03:01:34 Test Item Value Reference Range Interpretation [...] tions. Lab Interpretation (test Abnormal code = 44999-8) [facility] ClubCB WITH [id number] 02:55:12 Test Item Value Reference Range Interpretation Comments WBC (test code = See_Comment [Automated 8590-2) message] The sy stem which generated this [...] RDW-SD (test code = 50.4 fL 38.5-51.6 26823-9) RDW-CV (test code = 14.8 % 12.1-15.4 788-0) PLT (test code = See_Comment L [Automated 777-3) message] The sy stem which generated this result transmitted reference range : 150 - 328 10*3/ ?L. The reference r laura was not used to interpret this result as normal/abnormal . MPV (test code = 10.3 fL 9.8-13.0 11424-1) NRBC/100 WBC (test See_Comment [Automat ed code = 6061983117) message] The system which generated this result transmitted reference range : 0.0 - 10.0 /100 WBCs. The refer ence range was not u sed to interpret th is result as normal/abnormal . NRBC x10^3 (test code <0.01 See_Comment [Auto mated = 7245406526) message] The s ystem which generated this result transmitted reference range : 10*3/?L. The reference range was not used to interpret this result as normal/abnormal . GRAN MAT (NEUT) % 72.3 % (test code = 770-8) IMM GRAN % (test code 1.70 % = 0901552043) LYMPH % (test code = 16.5 % 736-9) MONO % (test code = 8.2 % 5905-5) EOS % (test code = 1.0 % 713-8) BASO % (test code = 0.3 % 706-2) GRAN MAT x10^3(ANC) 7.35 10*3/uL 1.99-6.95 H (test code = 7760105892) IMM GRAN x10^3 (test 0.17 10*3/uL 0.00-0.06 H code = 3872327431) LYMPH x10^3 (test code 1.67 10*3/uL 1.09-3.23 = 731-0) MONO x10^3 (test code 0.83 10*3/uL 0.36-1.02 = 742-7) EOS x10^3 (test code = 0.10 10*3/uL 0.06-0.53 711-2) BASO x10^3 (test code 0.03 10*3/uL 0.01-0.09 = 704-7) Lab Interpretation Abnormal (test code = 41701-8) [facility]
[2021-11-26 03:25] LABS: Blood Gas Oxyhemoglobin 97.6 % (94-97); Blood O2 Saturation 99.4 % (92-98.5)
[2021-11-26] MEDS ORDERED: METHYLPREDNISOLONE 125 MG INJ ONE (03:32)
[2021-11-26] MEDS ORDERED: IPRATROPIUM BROM 0.5MG/2.5ML ONE (03:33)
[2021-11-26] MEDS ORDERED: ONDANSETRON 4 MG/2 ML VIAL ONE ×2 (03:33→12:27)
[2021-11-26] MEDS ORDERED: LEVALBUTEROL 1.25 MG/3 ML NEB ONE (03:33)
[2021-11-26] MEDS ORDERED: dexAMETHasone 10 MG/ML VIAL ONE (03:33)
[2021-11-26] MEDS ORDERED: MORPHINE 2 MG/ML SYR ONE ×3 (03:33→12:27)
[2021-11-26] MEDS ORDERED: NA CHLORIDE 0.9% 1,000 ML ONE (03:34)
[2021-11-26] MEDS ORDERED: NA CHLORIDE 0.9% 500 ML ONE (03:34)
[2021-11-26] MEDS ORDERED: Levofloxacin500mg IV 500 MG/100 ML BAG IV ONE (03:34)
[2021-11-26] MEDS ORDERED: FAMOTIDINE 20 MG/2 ML VIAL IV ONE (03:34)
--- NOTE | 2021-11-26 03:38 | ER ---
Nurse's Notes [facility] Name: Joseph Quach Age: 61 yrs Sex: Male : 1960 Arrival Date: 11/26/2021 Time: 02:58 Bed 6 Private MD: Diagnosis: COPD/ Chronic obstructive pulmonary disease with (acute) exacerbation;Tachycardia, unspecified;Chest pain on breathing;Other cirrhosis of liver Presentation: 11/26 03:03 Chief complaint: Patient states: pt presents with chest pain and SOB. Coronavirus as6 screen: Client presents with at least one sign or symptom that may indicate coronavirus-19. Ebola Screen: No symptoms or risks identified at this time. 03:03 Method Of Arrival: Wheelchair as6 03:34 Onset of symptoms is unknown. as6 03:34 Acuity: AISLINN 2 as6 04:11 Initial Sepsis Screen: Does the patient meet any 2 criteria? HR > 90 bpm. Yes Does the as6 patient have a suspected source of infection? Yes: Productive cough/pneumonia. Risk Assessment: Do you want to hurt yourself or someone else? Patient reports no desire to harm self or others. Historical: - Allergies: 03:34 NKDA; as6 - PMHx: 03:34 cirrhosis of liver; COPD; High Cholesterol; Hypertensive disorder; Myocardial as6 infarction; Angina pectoris; - PSHx: 03:34 hernia repair -1959; as6 - Immunization history:: Adult Immunizations unknown. - Social history:: Smoking status: Patient/guardian denies using tobacco, Stopped _ months ago 1. - Family history:: not pertinent. Screenin:10 Abuse screen: Denies threats or abuse. Denies injuries from another. Nutritional as6 screening: No deficits noted. Tuberculosis screening: No symptoms or risk factors identified. Fall Risk None identified. Assessment: 03:30 General: Appears distressed, uncomfortable, Behavior is cooperative, restless. as6 03:30 Pain: Complains of pain in chest Pain does not radiate. Pain began gradually. Neuro: as6 Level of Consciousness is awake, alert, obeys commands, Oriented to person, place, time, situation. Cardiovascular: Reports chest pain, shortness of breath. Respiratory: Respiratory effort is labored, using tripod position, Patient placed on BiPAP:. 04:59 Respiratory: Respiratory effort is even, unlabored, Respiratory pattern is regular, as6 symmetrical. 05:57 General: pt removed to BiPAP. placed on 4 LPM via NC. tolerating well . as6 Vital Signs: 03:03 BP 140 / 111; Pulse 129; Resp 20; Temp 98.1(TE); Pulse Ox 100% on 100% BiPAP; Weight as6 100.7 kg; Height 5 ft. 11 in. (180.34 cm); Pain 10/10; 04:00 BP 129 / 81; Pulse 114; Resp 17; Pulse Ox 99% on BiPAP; oe 05:00 BP 128 / 81; Pulse 101; Resp 15 S; Pulse Ox 98% on 40% BiPAP; as6 06:00 BP 145 / 88; Pulse 88; Resp 17 S; Pulse Ox 100% on 4 lpm NC; as6 03:03 Body Mass Index 30.96 (100.70 kg, 180.34 cm) as6 ED Course: 02:58 Patient arrived in ED. kz 03:01 Lawson Dangelo, JEZ is Primary Nurse. as6 03:06 Sohail Campbell MD is Attending Physician. angelo 03:34 Triage completed. as6 03:37 Bright Bowers MD is Hospitalizing Provider. angelo 03:40 Inserted saline lock: 22 gauge in left forearm, using aseptic technique. Blood as6 collected. Response to oxygen therapy: symptoms improved. 03:43 XRAY Chest (1 view) In Process Unspecified. EDMS 03:46 Kary Carpio MD is Hospitalizing Provider. la1 04:08 Arm band placed on. as6 04:12 Bed in low position. Call light in reach. Side rails up X2. craft coordinator on. Pulse as6 ox on. NIBP on. 06:00 No provider procedures requiring assistance completed. Patient admitted, IV remains in as6 place. Administered Medications: 03:41 Drug: NS 0.9% 500 ml Route: IV; Rate: bolus; Site: left forearm; as6 06:01 Follow up: Response: No adverse reaction; IV Status: Completed infusion; IV Intake: as6 500ml 03:41 Drug: morphine 2 mg Route: IVP; Site: left forearm; as6 03:41 Drug: Zofran (Ondansetron) 4 mg Route: IVP; Site: left forearm; as6 05:01 Follow up: Response: No adverse reaction as6 03:45 Drug: Decadron - Dexamethasone 10 mg Route: IVP; Site: left forearm; as6 05:02 Follow up: Response: No adverse reaction as6 03:46 Drug: NS 0.9% 1000 ml Route: IV; Rate: 125 ml/hr; Site: left forearm; as6 06:01 Follow up: IV Status: Infusion continued upon admission as6 03:46 Drug: Pepcid (famotidine) 20 mg Route: IVP; Site: left forearm; as6 05:02 Follow up: Response: No adverse reaction as6 03:46 Drug: SOLU-Medrol (methylPrednisoLONE) 125 mg Route: IVP; Site: left forearm; as6 05:02 Follow up: Response: No adverse reaction as6 03:52 Drug: levofloxacin 500 mg Volume: 100 ml; Route: IVPB; Infused Over: 60 mins; Site: as6 left forearm; 06:01 Follow up: Response: No adverse reaction; IV Status: Completed infusion; IV Intake: as6 100ml 04:07 Drug: Xopenex (levalbuterol) 3.75 mg Route: Inhalation; as6 05:01 Follow up: Response: No adverse reaction as6 04:07 Drug: AtroVENT (ipratropium) Aerosol 0.5 mg Route: Inhalation; as6 05:01 Follow up: Response: No adverse reaction as6 04:43 Drug: morphine 2 mg Route: IVP; Site: left forearm; as6 05:01 Follow up: Response: No adverse reaction; RASS: Alert and Calm (0) as6 09:28 Drug: Xopenex (levalbuterol) 2.5 mg Route: Inhalation; farooq Intake: 06:01 IV: 500ml; Total: 500ml. as6 06:01 IV: 100ml; Total: 600ml. as6 Outcome: 03:38 Decision to Hospitalize by Provider. angelo 06:00 Admitted to ER Hold. [facility]. as6 06:00 Condition: stable 06:00 Instructed on the need for admit. 17:52 Patient left the ED. ll1 Signatures: Dispatcher [employer] EDMS Sohail Campbell MD MD cha Attema, Lee, TELEPHONIC CASE MANAGER-C TELEPHONIC CASE MANAGER-Cla1 Enio Sams Lynsay, RN RN ll1 Lawson Dangelo, RN RN as6 Kala Back, RN RN Samanta Walls
--- NOTE | 2021-11-26 03:38 | EDPHYS ---
Physician Documentation [facility] Name: Joseph Quach Age: 61 yrs Sex: Male : 1960 Arrival Date: 11/26/2021 Time: 02:58 Bed 6 Private MD: CATHY Physician Sohail Campbell HPI: 11/26 03:33 This 61 yrs old Male presents to ER via Wheelchair with complaints of Chest angelo Pain, Breathing Difficulty. 03:33 The patient or guardian reports chest pain that is located primarily in the anterior angelo chest wall, bilaterally. Onset: this morning, today. The pain does not radiate. Associated signs and symptoms: Pertinent positives: cough, shortness of breath. The chest pain is described as squeezing. Duration: The patient or guardian reports a single episode, that is still ongoing. Modifying factors: The symptoms are alleviated by remaining still, the symptoms are aggravated by activity, breathing, exertion, movement, palpation of area, twisting torso. Severity of pain: At its worst the pain was moderate in the emergency department the pain is unchanged. The patient has experienced similar episodes in the past, several times. Historical: - Allergies: 03:34 NKDA; as6 - PMHx: 03:34 cirrhosis of liver; COPD; High Cholesterol; Hypertensive disorder; Myocardial as6 infarction; Angina pectoris; - PSHx: 03:34 hernia repair -1959; - Immunization history:: Adult Immunizations unknown. - Social history:: Smoking status: Patient/guardian denies using tobacco, Stopped _ months ago 1. - Family history:: not pertinent. ROS: 03:33 Constitutional: Negative for fever, chills, and weight loss, Eyes: Negative for injury, angelo pain, redness, and discharge, ENT: Negative for injury, pain, and discharge, Neck: Negative for injury, pain, and swelling, Abdomen/GI: Negative for abdominal pain, nausea, vomiting, diarrhea, and constipation, Back: Negative for injury and pain, : Negative for injury, bleeding, discharge, and swelling, MS/Extremity: Negative for injury and deformity, Skin: Negative for injury, rash, and discoloration, Neuro: Negative for headache, weakness, numbness, tingling, and seizure, Psych: Negative for depression, anxiety, suicide ideation, homicidal ideation, and hallucinations, Allergy/Immunology: Negative for hives, rash, and allergies, Endocrine: Negative for neck swelling, polydipsia, polyuria, polyphagia, and marked weight changes, Hematologic/Lymphatic: Negative for swollen nodes, abnormal bleeding, and unusual bruising. 03:33 Cardiovascular: Positive for chest pain, of the chest. 03:33 Respiratory: Positive for cough, shortness of breath, at rest. wheezing, expiratory. Exam: 03:33 Constitutional: This is a well developed, well nourished patient who is awake, alert, angelo and in no acute distress. Head/Face: Normocephalic, atraumatic. Eyes: Pupils equal round and reactive to light, extra-ocular motions intact. Lids and lashes normal. Conjunctiva and sclera are non-icteric and not injected. Cornea within normal limits. Periorbital areas with no swelling, redness, or edema. ENT: Nares patent. No nasal discharge, no septal abnormalities noted. Tympanic membranes are normal and external auditory canals are clear. Oropharynx with no redness, swelling, or masses, exudates, or evidence of obstruction, uvula midline. Mucous membranes moist. Neck: Trachea midline, no thyromegaly or masses palpated, and no cervical lymphadenopathy. Supple, full range of motion without nuchal rigidity, or vertebral point tenderness. No Meningismus. Chest/axilla: Normal chest wall appearance and motion. Nontender with no deformity. No lesions are appreciated. Abdomen/GI: Soft, non-tender, with normal bowel sounds. No distension or tympany. No guarding or rebound. No evidence of tenderness throughout. Back: No spinal tenderness. No costovertebral tenderness. Full range of motion. Male : Normal genitalia with no discharge or lesions. Skin: Warm, dry with normal turgor. Normal color with no rashes, no lesions, and no evidence of cellulitis. MS/ Extremity: Pulses equal, no cyanosis. Neurovascular intact. Full, normal range of motion. Neuro: Awake and alert, GCS 15, oriented to person, place, time, and situation. Cranial nerves II-XII grossly intact. Motor strength 5/5 in all extremities. Sensory grossly intact. Cerebellar exam normal. Normal gait. Psych: Awake, alert, with orientation to person, place and time. Behavior, mood, and affect are within normal limits. 03:33 Cardiovascular: Rate: tachycardic, Rhythm: regular, Pulses: Pulses are 4+ in bilateral radial, brachial, femoral, popliteal, posterior tibial and and dorsalis pedis arteries.. Heart sounds: normal, Edema: 1+ edema to level of left midcalf and right midcalf, JVD: is not appreciated. 03:33 ECG was reviewed by the Attending Physician. Vital Signs: 03:03 BP 140 / 111; Pulse 129; Resp 20; Temp 98.1(TE); Pulse Ox 100% on 100% BiPAP; Weight as6 100.7 kg; Height 5 ft. 11 in. (180.34 cm); Pain 10/10; 04:00 BP 129 / 81; Pulse 114; Resp 17; Pulse Ox 99% on BiPAP; oe 05:00 BP 128 / 81; Pulse 101; Resp 15 S; Pulse Ox 98% on 40% BiPAP; as6 06:00 BP 145 / 88; Pulse 88; Resp 17 S; Pulse Ox 100% on 4 lpm NC; as6 03:03 Body Mass Index 30.96 (100.70 kg, 180.34 cm) as6 MDM: 03:06 Patient medically screened. angelo 03:40 Differential diagnosis: abnormal EKG, acute myocardial infarction, acute pericarditis, angelo anxiety, costochondritis, gastritis, hiatal hernia, pancreatitis, peptic ulcer disease, pleurisy, pulmonary embolus, thoracic aortic disection, unstable angina. HEART Score: History: Slightly Suspicious (0), ECG: Non specific repolarization disturbance / LBTB / PM (1), Age: > 45 and < 65 years (1), Risk Factors: > or = 3 Risk factors for atherosclerotic disease (2), [Hypercholesterolemia] [Hypertension] [+ Family HX] [Obesity] Troponin: < or = 1 x Normal Limit (0). The patient was given aspirin in the Emergency Department. The patient's deep vein thrombosis risk score was calculated as follows: Total Score: 0. This patient was found to be at low risk for a deep vein thrombosis by using the Well's assessment criteria. The patient's pulmonary embolism risk score was calculated as follows: the patients heart rate is greater than 100 beats per minute (1.5 Pts) Total Score: 0-2 points. This patient was found to be at low risk for a pulmonary embolism by using the Well's assessment criteria. BUFFY Risk Score: 1 - Three or more CAD risk factors, 1- Known CAD, TOTAL SCORE = 2. Data reviewed: vital signs, nurses notes, lab test result(s), EKG, radiologic studies, plain films. Data interpreted: environmental monitoring technician: rate is 129 beats/min, rhythm is regular, Pulse oximetry: on room air is 100 %. Test interpretation: by ED physician or midlevel provider: ECG, plain radiologic studies. Counseling: I had a detailed discussion with the patient and/or guardian regarding: the historical points, exam findings, and any diagnostic results supporting the discharge/admit diagnosis, lab results, radiology results, the need for further work-up and treatment in the hospital. 11/26 03:08 Order name: Basic Metabolic Panel; Complete Time: 04:04 [facility] 11/26 03:08 Order name: CBC with Diff; Complete Time: 06:04 [facility] 11/26 03:08 Order name: LFT's; Complete Time: 04:04 [facility] 11/26 03:08 Order name: Magnesium; Complete Time: 04:04 [facility] 11/26 03:08 Order name: NT PRO-BNP; Complete Time: 04:04 [facility] 11/26 03:08 Order name: PT-INR; Complete Time: 03:40 [facility] 11/26 03:08 Order name: Troponin HS; Complete Time: 04:04 [facility] 11/26 03:08 Order name: SARS-COV-2 RT PCR (Document "Date of Onset" if Symptomatic) [facility] 11/26 03:08 Order name: ABG; Complete Time: 03:40 [facility] 11/26 04:15 Order name: Manual Differential; Complete Time: 06:04 [facility] 11/26 04:45 Order name: Urinalysis [facility] 11/26 04:45 Order name: CBC with Automated Diff [facility] 11/26 04:45 Order name: CBC with Automated Diff [facility] 11/26 04:45 Order name: CBC with Automated Diff [facility] 11/26 03:08 Order name: XRAY Chest (1 view) [facility] 11/26 03:08 Order name: BIPAP [facility] 11/26 04:45 Order name: Comprehensive Metabolic Panel [facility] 11/26 04:45 Order name: Comprehensive Metabolic Panel [facility] 11/26 04:45 Order name: Comprehensive Metabolic Panel [facility] 11/26 04:45 Order name: Magnesium [facility] 11/26 04:45 Order name: Magnesium [facility] 11/26 04:45 Order name: Magnesium [facility] 11/26 04:45 Order name: Troponin High Sensitivity [facility] 11/26 04:45 Order name: Troponin High Sensitivity [facility] 11/26 04:45 Order name: Troponin High Sensitivity [facility] 11/26 04:50 Order name: Chest For Pe Angio [facility] 11/26 03:08 Order name: EKG; Complete Time: 03:09 angelo 11/26 03:08 Order name: Cardiac monitoring; Complete Time: 03:21 angelo 11/26 03:08 Order name: EKG - Nurse/Tech; Complete Time: 03:21 angleo 11/26 03:08 Order name: IV Saline Lock; Complete Time: 03:25 [facility] 11/26 03:08 Order name: Labs collected and sent; Complete Time: 03:21 [facility] 11/26 03:08 Order name: O2 Per Protocol; Complete Time: 03:21 [facility] 11/26 03:08 Order name: O2 Sat Monitoring; Complete Time: 03:21 [facility] 11/26 04:45 Order name: Heart Healthy EDID EC:33 Rate is 125 beats/min. Rhythm is regular. QRS [place] is Normal. PA interval is normal. angelo QRS interval is normal. QT interval is normal. No Q waves. T waves are Normal. No ST changes noted. Clinical impression: Sinus tachycardia and No evidence of ischemia. Interpreted by me. Reviewed by me. Administered Medications: 03:41 Drug: NS 0.9% 500 ml Route: IV; Rate: bolus; Site: left forearm; as6 06:01 Follow up: Response: No adverse reaction; IV Status: Completed infusion; IV Intake: as6 500ml 03:41 Drug: morphine 2 mg Route: IVP; Site: left forearm; as6 03:41 Drug: Zofran (Ondansetron) 4 mg Route: IVP; Site: left forearm; as6 05:01 Follow up: Response: No adverse reaction as6 03:45 Drug: Decadron - Dexamethasone 10 mg Route: IVP; Site: left forearm; as6 05:02 Follow up: Response: No adverse reaction as6 03:46 Drug: NS 0.9% 1000 ml Route: IV; Rate: 125 ml/hr; Site: left forearm; as6 06:01 Follow up: IV Status: Infusion continued upon admission as6 03:46 Drug: Pepcid (famotidine) 20 mg Route: IVP; Site: left forearm; as6 05:02 Follow up: Response: No adverse reaction as6 03:46 Drug: SOLU-Medrol (methylPrednisoLONE) 125 mg Route: IVP; Site: left forearm; as6 05:02 Follow up: Response: No adverse reaction as6 03:52 Drug: levofloxacin 500 mg Volume: 100 ml; Route: IVPB; Infused Over: 60 mins; Site: as6 left forearm; 06:01 Follow up: Response: No adverse reaction; IV Status: Completed infusion; IV Intake: as6 100ml 04:07 Drug: Xopenex (levalbuterol) 3.75 mg Route: Inhalation; as6 05:01 Follow up: Response: No adverse reaction as6 04:07 Drug: AtroVENT (ipratropium) Aerosol 0.5 mg Route: Inhalation; as6 05:01 Follow up: Response: No adverse reaction as6 04:43 Drug: morphine 2 mg Route: IVP; Site: left forearm; as6 05:01 Follow up: Response: No adverse reaction; RASS: Alert and Calm (0) as6 09:28 Drug: Xopenex (levalbuterol) 2.5 mg Route: Inhalation; farooq Disposition Summary: 11/26/21 03:38 Hospitalization Ordered Hospitalization Status: Inpatient Admission angelo Condition: Fair angelo Problem: new angelo Symptoms: have improved angelo Bed/Room Type: Standard angelo Provider: Kary Carpio(11/26/21 03:46) la1 Location: Telemetry/MedSurg (Inpatient)(11/26/21 16:34) [facility] Room Assignment: [facility](11/26/21 16:34) [facility] Diagnosis - COPD/ Chronic obstructive pulmonary disease with (acute) exacerbation angelo - Tachycardia, unspecified angelo - Chest pain on breathing angelo - Other cirrhosis of liver angelo Forms: - Medication Reconciliation Form angelo - SBAR form angelo Signatures: Dispatcher [employer] EDSohail Johnson MD MD cha Attema, Lee, GERIATRICS PHYSICIAN-C GERIATRICS PHYSICIAN-Cla1 Babar Arreaga RN RN ja1 Felisha Castro RN RN eb1 Slawson, Ashby, RN RN as6 Au-Stager, Kala, RN RN farooq Corrections: (The following items were deleted from the chart) 03:46 03:38 Robinson Bright angelo la1 03:54 03:38 Telemetry/MedSurg (Inpatient) angelo eb1 03:54 03:38 angelo eb1 04:50 04:35 Chest Angio+CT.RAD.BRZ ordered. EDMS EDMS 16:34 03:54 [facility] ER HOLD eb1 ja1 16:34 03:54 ERHOLD- eb1 ja1
[2021-11-26 03:39] LABS: Protime INR 1.13
[2021-11-26 03:40] LABS: Absolute Lymphocytes (CBC) 1.7 K/uL (0.7-4.9); Hematocrit 44.2 % (39.6-49.0); Lymphocytes % 18.3 % (15.3-44.8); MPV 7.6 fL (7.6-11.3); RBC Red Blood Cell Count 4.64 M/uL (4.33-5.43)
[2021-11-26 03:57] LABS: Albumin 3.1 g/dL (3.4-5.0); Bilirubin Direct 0.6 mg/dL (0-0.2); Bilirubin Total 1.6 mg/dL (0.2-1.0); Magnesium 1.9 mg/dL (1.8-2.4); Potassium 3.6 mmol/L (3.5-5.1); Protein, Total 6.7 g/dL (6.4-8.2); Troponin High Sensitivity 24.7 pg/mL (<58.9)
[2021-11-26] MEDS ORDERED: HYDROCODONE/APAP 5/325 MG TAB PO PRN (04:37)
[2021-11-26] MEDS ORDERED: ONDANSETRON 4 MG/2 ML VIAL IV PRN (04:37)
--- NOTE | 2021-11-26 04:50 | P.HP ---
Certification for Inpatient Patient admitted to: Observation With expected LOS: <2 Midnights Patient will require the following post-hospital care: None Practitioner: I am a practitioner with admitting privileges, knowledge of patient current condition, hospital course, and medical plan of care. Services: Services provided to patient in accordance with Admission requirements found in Title 42 Section 412.3 of the Code of Federal Regulations Patient History Date of Service: 11/26/21 Reason for admission: Chest pain History of Present Illness: 61-year-old male with history of cirrhosis of liver, COPD on home oxygen, chronic diastolic congestive heart failure, recurrent chest pain presents emergency department for severe chest pain, tachycardia and shortness of breath. Patient was placed on BiPAP upon arrival to the emergency department for respiratory distress. His labs were significant for a normal initial troponin chest x-ray demonstrates possible left perihilar pneumonia although patient was recently treated for pneumonia and is on his last day of Levaquin today. Patient reports that his oxygen has been fine throughout the day around 95% with his oxygen patient having severe chest pain radiating to his back associated with tachycardia. Patient did have echocardiogram last week with normal ejection fraction also had CT angio chest to rule out PE at the beginning of this month which rule out central PE but had some motion degradation. Patient has been evaluated by cardiology has had recommended echocardiogram but has not been able to have stress test yet. Will admit for chest pain, obtain CT angio to rule out PE and consult cardiology. Allergies Fish Containing Products Allergy (Verified 10/31/21 09:57) Anaphylaxis Home Medications: Gabapentin 300 mg PO BID #60 08/25/21 Ipratropium/Albuterol Sulfate [Iprat-Albut 0.5-3(2.5) mg/3 ml] 3 ml NEB Q6H #60 ampul.neb 08/25/21 Mometasone/Formoterol [Dulera 200 Mcg/5 Mcg Inhaler] 2 puff IH BID #1 inhaler 08/25/21 Albuterol Neb [Proventil 0.083% Neb Soln] 2.5 mg NEB [id number] PRN #60 amp 11/03/21 Apixaban [Eliquis *] 2.5 mg PO BID #60 tablet 11/03/21 Atorvastatin Calcium [Lipitor] 40 mg PO BEDTIME #30 tab 11/03/21 Metoprolol Succinate 25 mg PO DAILY 11/19/21 Aspirin [Aspirin EC 81 MG] 81 mg PO DAILY #30 tablet. 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 - Family History Sister -: Cancer, Other (see notes) Notes: lupus Brother -: Kidney disease, Other (see notes) Notes: lupus Mother -: Other (see notes) Notes: copd - Social History Alcohol use: No CD- Drugs: No Caffeine use: Yes Place of Residence: Home Review of Systems 10-point ROS is otherwise unremarkable Respiratory: Shortness of Breath Cardiovascular: Chest Pain, Palpitations, Orthopnea, Edema Physical Examination - Physical Exam General: Alert, In no apparent distress, Oriented x3 HEENT: Atraumatic, PERRLA, Mucous membr. moist/pink, EOMI, Sclerae nonicteric Neck: Supple, 2+ carotid pulse no bruit, No LAD, Without JVD or thyroid abnormality Respiratory: Clear to auscultation bilaterally, Normal air movement Cardiovascular: Regular rate/rhythm, Normal S1 S2, Edema (3+ pitting edema bilateral lower extremities) Capillary refill: <2 Seconds Gastrointestinal: Normal bowel sounds, No tenderness Musculoskeletal: No tenderness Integumentary: No rashes Neurological: Normal gait, Normal speech, Normal strength at 5/5 x4 extr, Normal tone, Normal affect Lymphatics: No axilla or inguinal lymphadenopathy - Studies Laboratory Data (last 24 hrs) 11/26/21 03:22: PT 12.5, INR 1.13 11/26/21 03:22: WBC 9.5 D, Hgb 14.6, Hct 44.2, Plt Count 125 L D 11/26/21 03:22: Sodium 139, Potassium 3.6, BUN 20 H, Creatinine 0.92, Glucose 150 H, Magnesium 1.9, Total Bilirubin 1.6 H, AST 39 H, ALT 53, Alkaline Phosphatase 106 Assessment and Plan - Plan Assessment: Chest painrecurrent rule out ACS/PE Acute on chronic diastolic congestive heart failure COPD Cirrhosis of liver Plan: Chest painrecurrent rule out ACS/PE: Patient continues to have significant chest pain to the anterior chest wall/substernal described as sharp/stabbing worse with deep breaths/coughs now pain is radiating to back. Patient has seen cardiology had recent echocardiogram that had normal left ventricular ejection fraction and wall motion. Will obtain CT PE protocol to rule out pulmonary embolism given his tachycardia, persistent pleuritic pain and shortness of breath. Acute on chronic diastolic congestive heart failure: Patient with 3+ pitting to bilateral lower extremities likely commendation cirrhosis liver and chronic diastolic congestive heart failure continue with IV Lasix 40 twice daily patient reports has been taking Lasix 40 daily at home and has had significant swelling. COPD: Continue IV steroids,. Nebulizer treatments, ICS. Patient without wheezing at this time states his COPD appears to be at his baseline is on home oxygen 3 L. Cirrhosis of liver: Stable, continue medication/Lasix. DVT PPX: Lovenox Code status: Full Discharge Plan: Home Plan to discharge in: 24 Hours - Advance Directives Does patient have a Living Will: No Does patient have a Durable POA for Healthcare: No - Code Status/Comfort Care Code Status Assessed: Yes (Full code) Critical Care: No Time Spent Managing Pts Care (In Minutes): 55
[2021-11-26 05:27] LABS: Blood Morphology Comment NOT SEEN (NOT SEEN); Platelet Estimate ADEQ
[2021-11-26 07:52] VITALS: BMI 30.7
[2021-11-26] MEDS ORDERED: Levofloxacin 750mg IV 750 MG/150 ML BAG IV ONE (08:42)
[2021-11-26] MEDS ORDERED: FUROSEMIDE 40 MG/4 ML VIAL ONE (08:42)
[2021-11-26] MEDS ORDERED: METHYLPREDNISOLONE 40 MG INJ ONE (08:42)
[2021-11-26] MEDS ORDERED: ENOXAPARIN 40 MG/0.4 ML SQ ONE (08:43)
[2021-11-26] MEDS: DULERA 200/5 (MOMETASONE/FORMOTEROL) INHALER IH SCH ×2 (08:50→20:01)
[2021-11-26] MEDS: FUROSEMIDE 40 MG/4 ML VIAL IV SCH ×2 (08:51→17:58)
[2021-11-26] MEDS: METHYLPREDNISOLONE 40 MG INJ IV SCH ×2 (08:52→17:59)
[2021-11-26] MEDS: ENOXAPARIN 40 MG/0.4 ML SQ SCH (08:52)
[2021-11-26] MEDS ORDERED: levoFLOXacin 750 MG TAB PO ONE (09:00)
--- NOTE | 2021-11-26 11:14 | RAD REPORT ---
EXAM DESCRIPTION: RAD - Chest Single View - 11/26/2021 3:41 am CLINICAL HISTORY: COPD COMPARISON: 10/13/2021. TECHNIQUE: XR CHEST 1 VIEW 11/26/2021 3:08 AM CDT FINDINGS: The heart is enlarged. There is a vague left perihilar opacity. There may be a small left pleural effusion. There is no pneumothorax. There are no acute osseous findings. IMPRESSION: Possible left perihilar pneumonia. Electronically signed by: Lowell Garner MD 11/26/2021 3:52 AM CDT Due to temporary technical issues with the PACS/Fluency reporting system, reports are being signed by the in house radiologist without review as a courtesy to ensure prompt reporting. The interpreting r adiologist is fully responsible for the content of the report.
--- NOTE | 2021-11-26 11:15 | RAD REPORT ---
EXAM DESCRIPTION: CT - Chest For Pe Angio - 11/26/2021 6:20 am CLINICAL HISTORY: Pulmonary embolism (PE) suspected, unknown D-dimer COMPARISON: None. TECHNIQUE: CT CHEST ANGIOGRAPHY WITH IV CONTRAST on 11/26/2021 4:34 AM CDT. MIPS reconstructions were generated. This exam was performed according to our departmental dose-optimization program, which includes autom ated exposure control, adjustment of the mA and/or kV according to patient size and/or use of iterati ve reconstruction technique. MIP images were generated. FINDINGS: Thoracic aorta is normal in course and caliber without aneurysm or dissection. Pulmonary a rteries are adequately opacified without acute or chronic filling defects. The heart is mildly enlarged. There is lipomatous hypertrophy of the interatrial septum. There is no pericardial effusion. Intrathoracic lymph nodes are not enlarged. There is no pleural effusion, pleural thickening or pneumothorax. Central airways are patent. There i s moderate bibasilar atelectasis. There is mild upper lung centrilobular emphysema. There is a questi onable mass within the periphery of the right lobe of the liver laterally measuring 2.9 cm. In the upper abdomen, the liver is cirrhotic in morphology. There are no acute osseous findings. No suspicious bony lesions. IMPRESSION: Cardiomegaly with no aortic dissection or aneurysm. No pulmonary embolus. Emphysema with bibasilar atelectasis. Hepatic cirrhosis with a questionable right hepatic lobe mass. Recommend nonemergent MRI. Electronically signed by: Lowell Garner MD 11/26/2021 6:05 AM CDT Due to temporary technical issues with the PACS/Fluency reporting system, reports are being signed by the in house radiologist without review as a courtesy to ensure prompt reporting. The interpreting r adiologist is fully responsible for the content of the report.
[2021-11-26] MEDS: MORPHINE 2 MG/ML SYR IV PRN ×2 (12:19→20:01)
--- NOTE | 2021-11-26 14:23 | CON ---
Date of Consultation: 11/26/[address] Carpio on 11/26/2021 with chest pain. I saw the patient on 11/26/2021. History Of Present Illness: Mr. Sellers was just discharged from the hospital after an episode of [employer] D exacerbation and he had a normal echocardiogram and he was supposed to have a stress test as an out patient, but had not done that yet. He came in with chest pain that is substernal, sharp, stabbing, atypical, does not radiate. It is not exertional. It is not associated with nausea, vomiting, diaph oresis, PND, orthopnea, pedal edema, palpitation, or syncope. MO has been ruled out. Past Medical History: Includes COPD, hypertension, dyslipidemia, coronary artery disease, and cirrho sis. Allergies: HE IS ALLERGIC TO FISH CONTAINING PRODUCT. Review of Systems: Negative. Social History: Negative. Family History: Noncontributory. Medications: At home include Lasix, inhalers, metoprolol, Neurontin, aspirin, Lopressor. He was als o taking antibiotics and . Physical Examination: Vital Signs: Stable, sinus rhythm, afebrile. He was on BiPAP with pO2 of 219, pCO2 of 53, pH of 7.4 1. HEENT: Negative. Neck: Supple with no bruit. Chest: Revealed wheezing on expiration. Cardiac: Normal. Abdomen: Benign. Extremities: Revealed no clubbing, cyanosis, or edema. Diagnostic Data: Showed a glucose of 150, otherwise was unremarkable. Impression And Plan: This is a patient with hypertension, dyslipidemia, coronary artery disease with atypical chest pain. We will arrange for stress test for the morning. The patient does not want farooq ve a heart catheterization unless it is absolutely necessary. His echo was normal. He does have cir rhosis. He does have chronic obstructive pulmonary disease with mild exacerbation. We will see what his stress test shows in the morning. JAZIEL/NIGHAT Voice ID: [id number] Report ID: [id number]
--- NOTE | 2021-11-26 16:22 | P.PN ---
Subjective Date of Service: 11/26/21 Chief Complaint: Chest pain Subjective: No new changes, No C/O voiced (Patient refused cardiac cath earlier today but later agreeable during discussion with me. Cardiology has been notified. Plan for cardiac cath in the a.m. we will keep n.p.o. overnight) Physical Examination - Vital Signs Temperature: 98.2 F Blood Pressure: 151/95 Pulse: 95 Respirations: 18 Pulse Ox (%): 95 - Studies Laboratory Data (last 24 hrs) 11/26/21 03:22: PT 12.5, INR 1.13 11/26/21 03:22: WBC 9.5 D, Hgb 14.6, Hct 44.2, Plt Count 125 L D 11/26/21 03:22: Sodium 139, Potassium 3.6, BUN 20 H, Creatinine 0.92, Glucose 150 H, Magnesium 1.9, Total Bilirubin 1.6 H, AST 39 H, ALT 53, Alkaline Phosphatase 106
[2021-11-26] MEDS: ALBUTEROL 2.5 MG/3 ML NEB SOL NEB PRN (20:15)
[2021-11-26] MEDS: IPRATROPIUM BROM 0.5MG/2.5ML NEB PRN (20:15)
[2021-11-26] MEDS ORDERED: ATORVASTATIN 40 MG TAB PO SCH (21:00)
[2021-11-26 22:44] LABS: Urine Appearance Clear (Clear); Urine Bilirubin Negative (Negative); Urine Blood Negative (Negative); Urine Color Yellow (Yellow); Urine Glucose Negative (Negative); Urine Protein Negative (Negative); Urine Specific Gravity 1.015 (1.005-1.030); Urine Urobilinogen 0.2 mg/dL (0.2-1.0)
[2021-11-26 23:13] LABS: Urine Microscopic Reflex NO UMIC
[2021-11-27] MEDS: METHYLPREDNISOLONE 40 MG INJ IV SCH ×3 (00:31→10:09)
[2021-11-27] MEDS: MORPHINE 2 MG/ML SYR IV PRN ×2 (02:19→09:57)
[2021-11-27 04:45] LABS: Absolute Lymphocytes (CBC) 0.3 K/uL (0.7-4.9); Lymphocytes % 5.8 % (15.3-44.8); MPV 7.5 fL (7.6-11.3); RBC Red Blood Cell Count 4.01 M/uL (4.33-5.43)
[2021-11-27 05:00] LABS: ALT/SGPT 40 U/L (12-78); AST/SGOT 24 U/L (15-37); Albumin 2.5 g/dL (3.4-5.0); Alkaline Phosphatase 71 U/L (45-117); BUN Blood Urea Nitrogen 23 mg/dL (7-18); Bicarbonate 34 mmol/L (21-32); Bilirubin Total 1.2 mg/dL (0.2-1.0); Glucose Level 124 mg/dL (74-106); Magnesium 1.8 mg/dL (1.8-2.4); Potassium 3.8 mmol/L (3.5-5.1); Protein, Total 5.4 g/dL (6.4-8.2); Sodium Level 138 mmol/L (136-145)
[2021-11-27] MEDS ORDERED: NA CHLORIDE 0.9% 500 ML ONE (05:44)
[2021-11-27] MEDS ORDERED: LIDOCAINE 1% 20 ML MDV ONE (05:51)
[2021-11-27] MEDS ORDERED: HEPA 1000U/500MLS 1,000 UNIT/500 ML BAG IV ONE (05:51)
[2021-11-27] MEDS ORDERED: MAGNESIUM SULFATE 1 gm IVPB 1 GM/100 ML BAG IV ONE (06:14)
[2021-11-27] MEDS ORDERED: FENTANYL CITR 100 MCG/2 ML ONE (07:16)
[2021-11-27] MEDS ORDERED: MIDAZOLAM HCL 2 MG/2 ML INJ ONE (07:16)
[2021-11-27] MEDS ORDERED: ATROPINE SULF 1 MG/10 ML SYR IV ONE (07:17)
[2021-11-27] MEDS ORDERED: NA CHLORIDE 0.9% 0 ML ONE (07:17)
[2021-11-27] MEDS ORDERED: FLUMAZENIL 0.1 MG/ML (5 mL VIAL) IV ONE (07:31)
[2021-11-27] MEDS: ENOXAPARIN 40 MG/0.4 ML SQ SCH (07:42)
[2021-11-27] MEDS: DULERA 200/5 (MOMETASONE/FORMOTEROL) INHALER IH SCH (07:42)
[2021-11-27] MEDS: FUROSEMIDE 40 MG/4 ML VIAL IV SCH ×2 (07:42→10:09)
--- NOTE | 2021-11-27 07:46 | EKG ---
Test Date: 2021-11-26 Test Time: 03:13:44 Expert Medical Writer: OSKAR MEASUREMENT RESULTS: Intervals: Rate: 125 NH: 134 QRSD: 78 QT: 302 QTc: 435 [place]: P: 87 NH: 134 QRS: 79 T: 74 INTERPRETIVE STATEMENTS: Sinus tachycardia with premature atrial complexes with aberrant conduction Otherwise normal ECG Compared to ECG 11/19/2021 07:28:57 Aberrant conduction of supraventricular beat(s) now present Sinus rhythm no longer present Electronically Signed On 11-27-21 07:42:36 CDT by Maunel Joya
[2021-11-27] MEDS: ALBUTEROL 2.5 MG/3 ML NEB SOL NEB PRN (08:25)
[2021-11-27] MEDS: IPRATROPIUM BROM 0.5MG/2.5ML NEB PRN (08:25)
[2021-11-27 12:32] VITALS: BP 163/86; TEMP 98.2
--- NOTE | 2021-11-27 14:45 | P.DS ---
Admission Date: 11/27/21 Discharge Date: 11/27/21 Disposition: ROUTINE DISCHARGE Discharge Condition: FAIR Reason for Admission: Chest pain Brief History of Present Illness: istory of Present Illness: 61-year-old male with history of cirrhosis of liver, COPD on home oxygen, chronic diastolic congestive heart failure, recurrent chest pain presents emergency department for severe chest pain, tachycardia and shortness of breath. Patient was placed on BiPAP upon arrival to the emergency department for respiratory distress. His labs were significant for a normal initial troponin chest x-ray demonstrates possible left perihilar pneumonia although patient was recently treated for pneumonia and is on his last day of Levaquin today. Patient reports that his oxygen has been fine throughout the day around 95% with his oxygen patient having severe chest pain radiating to his back associated with tachycardia. Patient did have echocardiogram last week with normal ejection fraction also had CT angio chest to rule out PE at the beginning of this month which rule out central PE but had some motion degradation. Patient has been evaluated by cardiology has had recommended echocardiogram but has not been able to have stress test yet. Will admit for chest pain, obtain CT angio to rule out PE and consult cardiology. Allergies Fish Containing Products Allergy (Verified 10/31/21 09:57) Anaphylaxis Home Medications: Gabapentin 300 mg PO BID #60 08/25/21 Ipratropium/Albuterol Sulfate [Iprat-Albut 0.5-3(2.5) mg/3 ml] 3 ml NEB Q6H #60 ampul.neb 08/25/21 Mometasone/Formoterol [Dulera 200 Mcg/5 Mcg Inhaler] 2 puff IH BID #1 inhaler 08/25/21 Albuterol Neb [Proventil 0.083% Neb Soln] 2.5 mg NEB [id number] PRN #60 amp 11/03/21 Apixaban [Eliquis *] 2.5 mg PO BID #60 tablet 11/03/21 Atorvastatin Calcium [Lipitor] 40 mg PO BEDTIME #30 tab 11/03/21 Metoprolol Succinate 25 mg PO DAILY 11/19/21 Aspirin [Aspirin EC 81 MG] 81 mg PO DAILY #30 tablet. 11/22/21 Furosemide [Lasix*] 40 mg PO BID #60 tab 11/22/21 levoFLOXacin [Levaquin] 750 mg PO DAILY #5 tab 11/22/21 predniSONE [Deltasone*] 10 mg PO DAILY #30 tab 11/22/21 Hospital Course: Hospital course Patient with hypertension, COPD with recent exacerbation on steroids and antibiotics admitted for persistent rib and chest pain. Patient denies any prior history of coronary artery disease. He continues to have persistent cough symptoms. He states he is adherent with his nebulizer and has completed the steroids and antibiotics. He was continued on IV steroids. Cardiology consult was obtained patient underwent cardiac cath with findings of normal coronaries. His chest pain symptoms improved with current pain medications. Patient will be discharged home to continue current pain and to follow-up with pulmonary in 1 to 2 weeks Vital Signs/Physical Exam: Temp Pulse Resp BP Pulse Ox 98.2 F 121 H 16 163/86 H 92 11/27/21 12:00 11/27/21 12:00 11/27/21 12:00 11/27/21 12:00 11/27/21 12:00 General: Alert, In no apparent distress, Oriented x3, Other (ON nc 02 2 L) HEENT: Atraumatic, Normocephalic, PERRLA Neck: Supple, 2+ carotid pulse no bruit, JVD not distended Respiratory: Clear to auscultation bilaterally, Normal air movement, Expiratory wheezes (FEW) Cardiovascular: Normal pulses, Regular rate/rhythm, Normal S1 S2 Gastrointestinal: Normal bowel sounds, Soft and benign, Non-distended Musculoskeletal: No clubbing, No swelling Neurological: Normal speech, Normal strength at 5/5 x4 extr, Normal tone, Sensation intact Laboratory Data at Discharge: WBC 5.9 K/uL (4.3-10.9) D 11/27/21 04:10 Hgb 12.9 g/dL (13.6-17.9) L 11/27/21 04:10 Hct 38.0 % (39.6-49.0) L 11/27/21 04:10 Plt Count 80 K/uL (152-406) L D 11/27/21 04:10 PT 12.5 SECONDS (9.5-12.5) 11/26/21 03:22 INR 1.13 11/26/21 03:22 Sodium 138 mmol/L (136-145) 11/27/21 04:10 Potassium 3.8 mmol/L (3.5-5.1) 11/27/21 04:10 BUN 23 mg/dL (7-18) H 11/27/21 04:10 Creatinine 0.63 mg/dL (0.55-1.3) 11/27/21 04:10 Glucose 124 mg/dL (74-106) H 11/27/21 04:10 Magnesium 1.8 mg/dL (1.8-2.4) 11/27/21 04:10 Total Bilirubin 1.2 mg/dL (0.2-1.0) H 11/27/21 04:10 AST 24 U/L (15-37) 11/27/21 04:10 ALT 40 U/L (12-78) 11/27/21 04:10 Alkaline Phosphatase 71 U/L (45-117) 11/27/21 04:10 Home Medications: Gabapentin 300 mg PO BID #60 08/25/21 Mometasone/Formoterol [Dulera 200 Mcg/5 Mcg Inhaler] 2 puff IH BID #1 inhaler 08/25/21 Albuterol Neb [Proventil 0.083% Neb Soln] 2.5 mg NEB [id number] PRN #60 amp 11/03/21 Metoprolol Succinate 25 mg PO DAILY 11/19/21 Aspirin [Aspirin EC 81 MG] 81 mg PO DAILY #30 tablet. 11/22/21 Furosemide [Lasix*] 40 mg PO BID #60 tab 11/22/21 Cholecalciferol (Vitamin D3) [Vitamin D3] 50 mcg PO DAILY 11/26/21 Ipratropium/Albuterol Sulfate [Iprat-Albut 0.5-3(2.5) mg/3 ml] 3 ml IH Q6H 11/26/21 Hydrocodone 5/APAP 325 [Ladd 5/325] 1 tab PO Q6H PRN #15 tab 11/27/21 predniSONE [Deltasone*] 10 mg PO DAILY #30 tab 11/27/21 New Medications: predniSONE [Deltasone*] 10 mg PO DAILY #30 tab Hydrocodone 5/APAP 325 [Ladd 5/325] 1 tab PO Q6H PRN #15 tab PRN Reason: Pain Diet: Low sodium Activity: Ad ivan Followup: Unknown,U [Primary Care Provider] - Richardson Douglass MD [ACTIVE - CAN ADMIT] - 1-2 Weeks Time spent managing pt's care (in minutes): 35
[2021-11-27 15:01] VITALS: O2SAT 97
--- NOTE | 2021-11-27 19:28 | OP ---
Date of Procedure: 11/27/2021 Surgeon: Manuel Joya MD Manual Lathe Operator: Ariadne Hendrickson. Indications: Admitted to Dr. Carpio on 11/26/2021. I saw the patient on 11/26/2021. Reason for c onsultation is recurrent admission to the hospital with chest pain and congestive heart failure diast olic with a COPD exacerbation, unstable angina type symptoms. Description Of Procedure: Brought to the photo lab manager today on 11/27/2021, underwent a left heart cathet erization with selective coronary arteriogram. Indication was unstable angina. The patient was prep ped and draped in the routine sterile fashion. Given Versed and fentanyl for sedation. A 6-Tamazight s latha introduced in the right common femoral artery successfully. Angiography there was normal. Sta rClose was used to close the case. Emily catheter was used to cannulate the left main and right ma in respectively. The patient was found to have perfectly normal coronaries. Large vessel codominant system. There were no complications. Blood Loss: 5 mL. The patient tolerated the procedure well. Anesthesia: Total conscious sedation was 30 minutes. Final Diagnoses: Unstable angina, chronic diastolic congestive heart failure, chronic obstructive pu lmonary disease exacerbation, normal coronaries. Disposition: The patient can go home today after 2 hours of bedrest. I will see him in the office i n 2 weeks. JAZIEL/NIGHAT Voice ID: [id number] Report ID: [id number]
== END 2021-11-27 16:00 | disposition home or self-care (01) | DRG 286 ==
LOC: ER 02:56 → ERHOLD 04:37 → 4TH 17:09 → OBSVTOIN 11-27 09:08
PROVIDERS: ADMIT Internal Medicine; ATTEND Internal Medicine
PROC: B201YZZ Plain Radiography of Multiple Coronary Arteries using Other Contrast (ICD-10-PCS; principal; 2021-11-27)
PROC: 5A09357 Assistance with Respiratory Ventilation, Less than 24 Consecutive Hours, Continuous Positive Airway Pressure (ICD-10-PCS; 2021-11-27)
DX: I20.0 Unstable angina (principal); I50.33 Acute on chronic diastolic (congestive) heart failure; J44.1 Chronic obstructive pulmonary disease with (acute) exacerbation; I11.0 Hypertensive heart disease with heart failure; K74.60 Unspecified cirrhosis of liver; B19.20 Unspecified viral hepatitis C without hepatic coma; E78.5 Hyperlipidemia, unspecified; R06.03 Acute respiratory distress; Z99.81 Dependence on supplemental oxygen; Z20.822 Contact with and (suspected) exposure to COVID-19
CPT/HCPCS: 36415; 71045; 71275; 80048; 80053; 80076; 81003; 82805; 83735; 83880; 84484; 85025; 85610; 93005; 93454; 94640; 94660; 96365; 96366; 96375; 99285; C1893; G0378; J0583; J1100; J1644; J1650; J1940; J2250; J2270; J2405; J2920; J2930; J3010; J3475; J3490; J3535; J7030; J7040; Q9967; U0003

== ENCOUNTER 2021-12-05 15:12 | Emergency (ER) | payer OTHER ==
--- OUTSIDE RECORDS SUMMARY | 2021-12-05 15:16 | XMS REPORT | Continuity of Care Document ---
:1960 Author Organization [facility] t Address [address] [place] [address] Care Team Providers Name Role Phone PHONG [...] Date COPD with COPD with Disease Active NPI :183 acute acute 11-05 [id number] exacerbati exacerbati 00:00: on on 00 Obesity Obesity Disease Active NPI:183 (BMI (BMI 11-048781 30-39.9) 30-39.9) 00:00: 00 COPD COPD Disease Active NPI:183 exacerbati exacerbati 11-04 on on 00:00: 00 Troponin I Troponin I Disease Active N PI:183 above above [id number] reference reference 00:00: range range 00 Cigarette Cigarette Disease Active NPI :183 smoker smoker 11-04 [id number] 00:00: 00 Chest pain Chest pain Disease Active N PI:183 11-03 [id number] 00:00: 00 Allergies, Adverse Reactions, Alerts Allergy Allergy Status Severity Reaction(s) Onset Inactive Treating Comm ents Source Name Type Date Date Clinician Seafood/ Propensi Active Rash 2018-08 NPI:18 3 Fish ty to 2-17 [id number] adverse 00:00: reaction 00 s SEAFOOD/ Food Active Rash 2018-08 NPI:183 FISH 2-17 [id number] 00:00: 00 Social History Social Habit Start Date Stop Date Quantity Comments Source Exposure to Not sure NPI:[id number] SARS-CoV-2 (event) Alcohol intake 2021-11-04 2021-11-04 Ex-drinker NPI:[id number] 00:00:00 00:00:00 (finding) Education 2021-11-04 2021-11-04 9 00:00:00 00:00:00 Tobacco use and 2019-05-29 2019-05-29 Current user NPI:613 [id number] exposure 00:00:00 00:00:00 History of tobacco 2017-05-29 Smoker NPI:18 [id number] use 00:00:00 Sex [birth year] At [birth year] NPI:59051 59049 00:00:00 00:00:00 Smoking Status Start Date Stop Date Source Former smoker 2019-05-29 00:00:00 2019-05-29 00:00:00 NPI:1831 [id number] Medications Ordered Filled Start Stop Current Ordering Indication Dosage Frequency Signature Comments Components Source Medication Medication Date Date Medication? Clinician (SIG) Name Name veenai 2021- Yes 500mg 500 mg, N PI:183 n 11-06 Oral, [id number] (ZITHROMAX) 13:00: 00:59 ONCE, 1 tablet 500 00 :00 dose, On mg 11/06/21 at 0800, Routine
Reason for Anti-Infec tive: Empiric Therapy for Suspected Infection< br>Empiric Therapy Site: Respirator y
Durat ion of therapy: 72 hours aspirin 2021- Yes [id number] 325mg Take 1 N PI:183 E.C. 325 mg 11-06 tablet by 13 [id number] EC tablet 00:00: 04:59 mouth 00 :00 daily with breakfast for 30 days. cholecalcif 2021- Yes [id number] 2000U Take 2 NPI:183 tere, 11-06 tablets by [id number] vitamin D3, 00:00: 04:59 mouth 25 mcg 00 :00 daily for (1,000 30 days. unit) tablet metoprolol 2021- Yes [id number] 25mg Take 1 NPI:183 succinate 11-06 tablet by [id number] XL 25 mg 24 00:00: 04:59 mouth hr tablet 00 :00 daily for 30 days. aspirin 2021- Yes [id number] 325mg Take 1 N PI:183 E.C. 325 mg 11-06 tablet by 13 [id number] EC tablet 00:00: 04:59 mouth 00 :00 daily with breakfast for 30 days. cholecalcif 2021- Yes [id number] 2000U Take 2 NPI:183 tere, 11-06 tablets by [id number] vitamin D3, 00:00: 04:59 mouth 25 mcg 00 :00 daily for (1,000 30 days. unit) tablet metoprolol 2021- Yes [id number] 25mg Take 1 NPI:183 succinate 11-06 tablet by [id number] XL 25 mg 24 00:00: 04:59 mouth hr tablet 00 :00 daily for 30 days. predniSONE 2021- Yes [id number] 50mg Take 1 NPI:183 50 mg 11-06 tablet by [id number] tablet 00:00: 04:59 mouth 00 :00 every day at 1200 (noon) for 3 days. predniSONE 2021- Yes [id number] 50mg Take 1 NPI:183 50 mg 11-06- tablet by [id number] tablet 00:00: 04:59 mouth 00 :00 every day at 1200 (noon) for 3 days. mometasone/ Yes Inhale. NPI :183 formoterol 11-05 [id number] (DULERA 18:48: INHALE) 11 mometasone/ 0 Yes Inhale. NPI :183 formoterol -07 [id number] (DULERA 18:48: INHALE) 11 cholecalcif 0 Yes 2000U 2,000 NPI: 183 tere 4-07 Units, 3057524 (vitamin 15:00: Oral, D3) tablet 00 DAILY, 2,000 Units First dose on Maribell 11/05/21 at 1000, Until Discontinu ed, Routine gabapentin 2021-0 202- No 300mg Take 300 N PI:183 300 mg - 04-07 mg by [id number] capsule 14:03: 00:00 mouth 2 31 :00 (two) times daily. Unsure on dose ALBUTEROL 2021- No Inhale. NPI: 183 INHALE - 04-07 [id number] 14:03: 00:00 31 :00 albuterol 0 Yes [id number] 2{puff} Inhale 2 NPI:183 90 4-07 Puffs [id number] mcg/actuati 00:00: every 6 on inhaler 00 (six) hours as needed for Wheezing or Shortness of Breath. Budesonide Yes [id number] 1{puff} Inhale 1 NPI:183 90 4-07 Puff every [id number] mcg/actuati 00:00: morning on aerosol 00 and powder evening. 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 Indication s: acute pain albuterol 0 Yes [id number] 2{puff} Inhale 2 NPI:183 90 4-07 Puffs [id number] mcg/actuati 00:00: every 6 on inhaler 00 (six) hours as needed for Wheezing or Shortness of Breath. Budesonide Yes [id number] 1{puff} Inhale 1 NPI:183 90 4-07 Puff every [id number] mcg/actuati 00:00: morning on aerosol 00 and powder evening. 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 Indication s: acute pain gabapentin 2021- Yes [id number] 300mg Take 1 NPI:183 300 mg 11-05-08 capsule by [id number] 1 capsule 00:00: 04:59 mouth 2 00 :00 (two) times daily for 30 days. gabapentin 2021- Yes [id number] 300mg Take 1 NPI:183 300 mg 11-05- capsule by [id number] 1 capsule 00:00: 04:59 mouth 2 00 :00 (two) times daily for 30 days. azithromyci 2021- Yes [id number] 500mg Take 1 NPI:183 n 500 mg 11-[place] [id number] 81 tablet 00:00: 04:59 mouth 00 :00 daily for 2 doses. azithromyci 2021- Yes [id number] 500mg Take 1 NPI:183 n 500 mg 11-[place] [id number] 81 tablet 00:00: 04:59 mouth 00 :00 daily for 2 doses. enoxaparin Yes 30mg 30 mg, NPI:1 83 (LOVENOX) 11-04 Subcutaneo 1318 781 injection 22:00: us, DAILY, 30 mg 00 First dose on Tue11/04/21 at 1700, Until Discontinu ed, Routine sulfur 2021- No [id number] 5mL 5 mL, NPI: 183 hexafluorid 11-04-06 Intravenou 1 091157 e microsphr 17:45: 17:45 s, ONCE, 1 (LUMASON) 00 :00 dose, On injection 5 Tue11/04/21 mL at 1245, Routine
history faculty member approving Restricted medication : ERIC ARANA predniSONE Yes 50mg 50 mg, NPI:1 83 (DELTASONE) 11-04 Oral, [id number] tablet 50 17:00: QNOON, mg 00 First dose on Tue11/04/21 at 1200, Until Discontinu ed, Routine morpHINE 2021- No 2mg 2 mg, Slow 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 DEVELOPMENT MANAGER I:183 injection 2 11-04 04-06 IV Push, 131 8781 mg 16:15: 15:22 ONCE, 1 00 :00 dose, On Tue11/04/21 at 1115, Routine HYDROcodone 2021-0 Yes 1{tbl} 1 tablet, NPI:183 -acetaminop 11-04 Oral, [id number] hen (NORCO 15:06: Q6HPRN, 5) 5-325 mg 46 Starting tablet 1 on Tue tablet 11/04/21 at 1006, Until Discontinu ed, Routine, Pain (scale 4-6) metoprolol 0 Yes 25mg 25 mg, NPI:1 83 succinate 11-04 Oral, [id number] XL (TOPROL 14:00: DAILY, XL) tablet 00 First dose 25 mg on Tue11/04/21 at 0900, Until Discontinu ed, Routine azithromyci 2021- No 500mg 500 mg, IV NPI:183 n 11-04 04-07 Piggyback, [id number] (ZITHROMAX) 09:00: 13:35 Q24H ABX, 500 mg in 00 :10 7 doses, NaCl 0.9% First dose (NS) 250 mL on Tue VIAL-MATE 11/04/21 at IV 0400, Last piggyback dose on Tue11/10/21 at 0400, Administer over 60 Minutes, 250 mL
Reas on for Anti-Infec tive: Empiric Therapy for Suspected Infection< br>Empiric Therapy Site: Respirator y
Durat ion of therapy: 7 days aspirin 2021-0 Yes 325mg 325 mg, NPI:18 3 E.C. -06 Oral, QAM [id number] (ECOTRIN) 08:30: WITH tablet 325 00 BREAKFAST, mg First dose on Tue11/04/21 at 0330, Until Discontinu ed, Routine budesonide 2021- Yes .5mg 0.5 mg, NPI: 183 (PULMICORT - Inhalation 131 8781 RESPULE) 08:00: , BID, nebulizer 00 First dose solution on Tue 0.5 mg 11/04/21 at 0300, Until Discontinu ed, Routine ipratropium 0 Yes 3mL 3 mL, NPI:1 83 -albuteroL 4-06 Inhalation 131 8781 (DUONEB) 08:00: , Q4H, 0.5 mg-3 00 First dose mg(2.5 mg (after base)/3 mL last nebulizer reorder) solution 3 on Tue mL 11/04/21 at 0300, Until Discontinu ed, Routine gabapentin 2021-0 Yes 300mg 300 mg, NPI :183 (NEURONTIN) 4- Oral, BID, 31497 capsule 300 08:00: First dose mg 00 on Tue11/04/21 at 0300, Until Discontinu ed, Routine docusate 0 Yes 100mg 100 mg, NPI:1 83 (COLACE) 4- Oral, BID, 11134 81 capsule 100 08:00: First dose mg 00 on Tue11/04/21 at 0300, Until Discontinu ed, Routine ondansetron Yes 4mg 4 mg, Slow NPI:183 (ZOFRAN 11-04 IV Push, 0936795 (PF)) 07:56: Q6HPRN, injection 4 12 Starting mg on Tue11/04/21 at 0256, Until Discontinu ed, Routine, Nausea and Vomiting (N/V) ipratropium 2021- No 3mL 3 mL, NPI: 183 -albuteroL 11-04- Inhalation 13 79090 (DUONEB) 04:45: 03:59 , ONCE, 1 0.5 mg-3 00 :00 dose, On mg(2.5 mg Tue11/03/21 base)/3 mL at 2345, nebulizer Routine solution 3 mL methylpredn 2021- No 125mg 125 mg, IV NPI:183 isolone sod - 04-06 Piggyback, 1 120367 succ 04:45: 04:59 ONCE, 1 (SOLU-MEDRO 00 :00 dose, On L) 11/03/21 injection at 2345, 125 mg LARRY Vital Signs Vital Name Observation Time Observation Value Comments Source Oxygen saturation in 2021-11-05 21:30:00 93 /min Arterial blood by Pulse oximetry Respiratory rate 2021-11-05 21:30:00 20 /min Systolic blood pressure 2021-11-05 16:16:00 116 mm[Hg] Diastolic blood 2021-11-05 16:16:00 71 mm[Hg] NPI:1 [id number] pressure Heart rate 2021-11-05 16:16:00 95 /min NPI:1831 [id number] Body temperature 2021-11-05 16:16:00 36.28 Lesley Body weight 2021-11-05 09:32:00 100.971 kg NPI:1831 213150 BMI 2021-11-05 09:32:00 31.05 kg/m2 NPI:1 [id number] Body height 2021-11-04 17:37:00 180.3 cm NPI:183 978013 Procedures Procedure Date / Time Performed Performing Clinician Sour e MAGNESIUM 2021-11-05 16:31:00 Nader Cross NPI:[id number] 81 COMP. METABOLIC PANEL 2021-11-05 16:31:00 Nader Cross NPI:18 [id number] ([id number]) LIPID PANEL (06232)(TOTAL 2021-11-05 16:31:00 Jorge Fernández CHOLESTEROL, TRIGLYCERIDES, HDL) TROPONIN I 2021-11-05 09:50:00 Nader Cross NPI:[id number] 81 FREE T4 2021-11-05 09:50:00 Jorge Fernández NPI:[id number] THYROID STIMULATING HORMONE 2021-11-05 09:50:00 Stephen Fernández N-TERMINAL PRO-BNP 2021-11-05 09:50:00 Nader Cross NPI:[id number] TROPONIN I 2021-11-04 23:44:00 Nader Cross NPI:[id number] 81 TRANSTHORACIC ECHO (TTE) 2021-11-04 17:37:10 Nader Cross NPI :[id number] COMPLETE W/ CONTRAST PHOSPHORUS 2021-11-04 12:05:00 Nader Cross NPI:[id number] 81 URIC ACID 2021-11-04 12:05:00 Nader Cross NPI:[id number] 81 MAGNESIUM 2021-11-04 12:05:00 Amercia, Nader NPI:[id number] 81 TROPONIN I 2021-11-04 12:05:00 America, Nader NPI:[id number] 81 LIPID PANEL (45520)(TOTAL 2021-11-04 12:05:00 America, Nader 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 MANAGER I:[id number] CHOLESTEROL, TRIGLYCERIDES, HDL) VITAMIN B12, LEVEL 2021-11-04 08:48:00 America, Nader NPI:[id number] TROPONIN I 2021-11-04 08:48:00 America, Nader NPI:[id number] 81 SEDIMENTATION RATE 2021-11-04 08:48:00 America Nader NPI:[id number] VITAMIN D, 25-OH 2021-11-04 08:48:00 Nader Cross NPI:[id number] PROCALCITONIN 2021-11-04 08:48:00 America Nader NPI:[id number] 81 URINE DRUG (IMMUNOASSAY) - 2021-11-04 08:08:00 Nader Cross N PI:[id number] COMPREHENSIVE DRUG SCREEN URINALYSIS 2021-11-04 08:08:00 America Nader NPI:[id number] 81 URINE CULTURE 2021-11-04 08:08:00 America Nader NPI:[id number] 81 UREA NITROGEN, URINE RANDOM 2021-11-04 08:08:00 America, [place]mond SODIUM, URINE RANDOM 2021-11-04 08:08:00 America Nader NPI:125 [id number] PROTEIN CREAT RATIO URINE 2021-11-04 08:08:00 America, Nader 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 DEVELOPMENT MANAGER I:[id number] RANDOM RESPIRATORY PANEL BY PCR 2021-11-04 08:08:00 America, [place]iedmond NPI :[id number] COVID-19 (ID NOW RAPID 2021-11-04 04:03:00 Sheba Lott NPI:1 [id number] TESTING) LAB ONLY COVID 2021-11-04 04:03:00 Sheba Lott NPI:[id number] 81 INTERPRETATION XR CHEST 1 VW 2021-11-04 02:57:00 Violeta Lemonshayla Castro NPI:[id number] 781 ACUTE CARE ARTERIAL BLOOD 2021-11-04 02:57:00 Lucinaviv Birgit Castro N PI:[id number] GAS LIPASE 2021-11-04 02:45:00 Violeta Lemonshayla Castro NPI:[id number] 781 TROPONIN I 2021-11-04 02:45:00 LucinaNeo namnova Castro NPI:[id number] 781 COMP. METABOLIC PANEL 2021-11-04 02:45:00 Violeta Lemonshayla Castro NPI:1 [id number] ([id number]) CBC WITH DIFF 2021-11-04 02:45:00 PenelopeilirNeo namnova Castro NPI:[id number] 781 GLYCOSYLATED HEMOGLOBIN 2021-11-04 02:45:00 Nader Cross (A1C) PROTHROMBIN TIME / INR 2021-11-04 02:45:00 Lucinaviv Birgit Castro ACTIVATED PARTIAL THRMPLAS 2021-11-04 02:45:00 Neo Lemonnova Castro MARIAM HB ECG ROUTINE & RHYTHM 2021-11-04 02:13:29 LucinaNeo namnova Castro NPI :[id number] STRIP NOTICE OF PRIVACY PRACTICES 2021-11-04 01:59:17 Doctor Jamin miller, No Name CONSENT/REFUSAL FOR 2021-11-04 01:58:37 Doctor Unassigned, No 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 MANAGER I:[id number] DIAGNOSIS AND TREATMENT Name Encounters Start End Encounter Admission Attending Care Care Encounter Source Date/Time Date/Time Type Type Clinicians Facility Department ID 2021-11-06 2021-11-06 Transition DONAVAN Davidson [id number] NPI:183 00:00:00 00:00:00 of Care Nickie LOYD [id number] [place] [id number] [id number] 2021-11-03 2021-11-05 Outpatient [facility] [place] [id number] NPI:183 21:06:00 18:36:00 ALEXIS [id number] 1 2021-11-03 2021-11-05 [facility] Sheba Lott [facility] 1.2.840.11 [id number] NPI:183 21:06:00 18:36:00 Encounter Nader Cross [id number] Alexis Carey 4.2.7.2.686 [facility] [id number] Results Test Description Test Time Test Comments Results Result Comments Source LIPID PANEL (27160)(TOTAL CHOLESTEROL, TRIGLYCERIDES, HDL) 2 17:05:42 Test Item Value Reference Range Interpretation Comme nts CHOL (test code = 1203744437) 186 mg/dL 120-200 HDL (test code = 9780173137) 45 mg/dL >40 HDLC RATIO (test code = See_Comment [Au tomated message] The 2451467649) system which Muut nerated this result transmit michael reference range: <=5.0. T he reference range was not u sed to interpret this result as normal/abnormal . TRIG (test code = 3755519688) 64 mg/dL 30-170 LDL CHOL (test code = 59788-8) 128 mg/dL See_Comment [Automated message] The system which Muut nerated this result transmit michael reference range: <=160. T he reference range was not u sed to interpret this result as normal/abnormal . VLDL (test code = 7224159022) 13 mg/dL 5-60 Lab Interpretation (test code = Normal 74979-4) NPI:[id number]. METABOLIC PANEL (78520)2021-11-05 17:05:21 Test Item Value Reference Range Interpretation Comments NA (test code = 138 mmol/L 135-145 8571529815) K (test code = 4.6 mmol/L 3.5-5.0 3772350636) CL (test code = 104 mmol/L 98-108 9223484191) CO2 TOTAL (test code = 30 mmol/L 23-31 3449605073) AGAP (test code = 2-16 5152307613) BUN (test code = 20 mg/dL 7-23 5018980625) GLUCOSE (test code = 102 mg/dL 70-110 2266574190) CREATININE (test code = 0.63 mg/dL 0.60-1.25 0604028747) TOTAL BILI (test code = 1.2 mg/dL 0.1-1.1 H 9195396377) CALCIUM (test code = 9.0 mg/dL 8.6-10.6 1767070491) T PROTEIN (test code = 6.6 g/dL 6.3-8.2 5990968230) ALBUMIN (test code = 3.2 g/dL 3.5-5.0 L 8653318994) ALK PHOS (test code = 75 U/L 34-122 4359545204) ALTv (test code = 35 U/L 5-50 1742-6) AST(SGOT) (test code = 39 U/L 13-40 8056923674) eGFR (test code = mL/min/1.73m2 9417718905) TIFFANY (test code = TIFFANY) Association of [...] tests). Lab Interpretation Abnormal (test code = 01272-9) NPI:[id number] 17:05:21 Test Item Value Reference Range Interpretation Comments MAGNESIUM (test code = 9848020698) 1.9 mg/dL 1.7-2.4 Lab Interpretation (test code = Normal 35836-0) NPI:[id number] STIMULATING [id number] 12:35:38 Test Item Value Reference Range Interpretation Comments TSH (test code = See_Comment [Automated message] 6663069395) The system Worklight generated this result transmitted ref erence range: 0.45 - 4 .70 mIU/L. The refe rence range was not u sed to interpret this result as normal/abnor mal. Lab Interpretation (test Normal code = 59469-8) NPI:[id number] [id number] 12:22:17 Test Item Value Reference Range Interpretation Comments FREE T4 (test code = See_Comment [Autom ated message] 4399732074) The system Worklight generated this result transmitted ref erence range: 0.78 - 2 .20 ng/dL:. The ref erence range was not u sed to interpret this result as normal/abnor mal. Lab Interpretation (test Normal code = 42114-1) NPI:[id number] [id number] 12:16:59 Test Item Value Reference Interpretation Comments Range TROPONIN I (test 0.026 ng/mL See_Comment [Automated code = 5950751467) message] The system which generated this result [...] biotin. Lab Interpretation Normal (test code = 59764-5) NPI:[id number]-NOTPMCGS [id number] 12:13:58 Test Item Value Reference Range Interpretation Comments NT-proBNP (test code 228 pg/mL See_Comment H [Autom ated = 7048845460) message] The system which generated this result transmitted reference range : <=125. The reference range was not used to interpret this result as normal/abnormal . TIFFANY (test code = TIFFANY) Biotin has been reported to cause a negative bias, interpret results relative to patient's use of biotin. Lab Interpretation Abnormal (test code = 80513-0) NPI:[id number] echo (TTE)2021-11-05 00:59:55 Test Item Value Reference Range Interpretation Comments LVIDD (test code = 4.50 cm 2622498810) IVS (test code = 1.10 cm 8360958127) Interventricular Septum 1.10 cm Diastolic Thickness by 2D (test code = 0613788) LVPWD (test code = 1.24 cm 2256894109) PW (test code = 1.24 cm 0.6-1.2 5467531279) LVOT diameter (test code 1.92 cm = 5685571526) ACS (test code = 1.82 cm 3875178287) Ao root annulus (test 3.5 cm code = 7387604497) Ao root diam (test code 3.50 cm = 3340444380) Aortic root (test code = 3.5 cm 1362184404) LA size (test code = 4.6 cm 8434407669) E wave decelartion time 0.21 s (test code = 7446477194) MV Peak E William (test code 64.9 cm/s = 0041158071) MV Peak A William (test code 83.8 cm/s = 2663343210) E/A ratio (test code = ratio 5705593496) MV Prop V (test code = 65.80 cm/s 7971313707) Tapse (test code = 1.92 cm 2113565898) LVOT stroke volume (test 67.60 cm3 code = 5460804079) LVOT peak william (test code 110.2 cm/s = 7867728834) LVOT mn grad (test code mmHg = 7492856503) AV LVOT peak gradient mmHg (test code = 6248495253) LVOT peak VTI (test code 23.3 cm = 3707521493) LV V1 mean (test code = 62.80 cm/s 7019217660) Aortic valve mean 129.2 cm/s velocity (test code = 6264428732) Ao peak william (test code = 230.1 cm/s 5097557433) Ao VTI (test code = 39.0 cm 7258610392) AV area by cont VTI 1.7 cm2 (test code = 6865751527) AV area peak william (test 1.4 cm2 code = 3300159233) Ao max PG (test code = 21.20 mm[Hg] 1356914002) AV peak gradient (test mmHg code = 0754390402) AV valve area (test code 1.73 cm2 = 2167358846) AV mean gradient (test mmHg code = 5830256242) TR Peak William (test code = 233.7 cm/s 5127041663) Triscuspid Valve mmHg Regurgitation Peak Gradient (test code = 9528101767) EF(Teich) (test code = 60.40 % 8959293106) LVIDS (test code = 3.10 cm 3519724992) FS (test code = 32 % 2558854849) EF - 2D (test code = 60.40 % 66651668) Radiology Study observation (narrative) (test code = 94018-2) TIFFANY (test code = TIFFANY) ?Left?Ventricle: Left [...] (99.8 kg) 2.23 sq meters 130/95 88 NPI:[id number] [id number] 00:28:36 Test Item Value Reference Interpretation Comments Range TROPONIN I (test 0.015 ng/mL See_Comment [Automated code = 6851874487) message] The system which generated this result [...] biotin. Lab Interpretation Normal (test code = 79911-2) NPI:[id number] D, [id number] 17:50:34 Test Item Value Reference Range Interpretation Comments VIT D 25OH (test code = 19 ng/mL 25-80 L 63777-4) TIFFANY (test code = TIFFANY) Deficiency: <20 ng/mLInsufficiency: 20-24 ng/mLOptimal: 25-80 ng/mL Lab Interpretation (test Abnormal code = 62041-2) NPI:[id number] 16:54:29 Test Item Value Reference Range Interpretation Comments Procalcitonin (test 0.03 ng/mL <0.07 code = 2255664290) TIFFANY (test code = TIFFANY) INTERPRETATION OF [...] lung abscess/empyema. For further information please refer to:[email or web address] Lab Interpretation Normal (test code = 17313-0) NPI:[id number] B12, [id number] 16:39:51 Test Item Value Reference Range Interpretation Comments VIT B12 (test code = 636 pg/mL 240-930 6036027324) TIFFANY (test code = TIFFANY) Biotin has been reported to cause a positive bias, interpret results relative to patient's use of biotin. Lab Interpretation (test Normal code = 82424-3) NPI:[id number] PANEL (79601)(TOTAL CHOLESTEROL, TRIGLYCERIDES, HDL) 2021-11-04 15:21:56 Test Item Value Reference Range Interpretation Comments CHOL (test code = 183 mg/dL 120-200 9268519655) HDL (test code = 40 mg/dL >40 L 9134145812) HDLC RATIO (test code = See_Comment [Au tomated message] 1166437217) The system Worklight generated this result transmit michael reference range : <=5.0. The refe rence range was not u sed to interpret th is result as normal/abnormal . TRIG (test code = 57 mg/dL 30-170 9847006806) LDL CHOL (test code = 132 mg/dL See_Comment [Auto mated message] 98655-6) The system Worklight generated this result transmit michael reference range : <=160. The refe rence range was not u sed to interpret th is result as normal/abnormal . VLDL (test code = 11 mg/dL 5-60 4836575739) Lab Interpretation (test Abnormal code = 39007-6) NPI:[id number] 15:21:56 Test Item Value Reference Range Interpretation Comments MAGNESIUM (test code = 0538385775) 1.6 mg/dL 1.7-2.4 L Lab Interpretation (test code = Abnormal 88270-4) NPI:[id number] 15:21:36 Test Item Value Reference Range Interpretation Comments PHOSPHORUS (test code = 9723875046) 3.1 mg/dL 2.5-5.0 Lab Interpretation (test code = Normal 20554-0) NPI:[id number] [id number] 15:21:16 Test Item Value Reference Range Interpretation Comments URIC ACID (test code = 6647328372) 4.4 mg/dL 3.6-8.0 Lab Interpretation (test code = Normal 96087-6) NPI:[id number] [id number] 13:34:13 Test Item Value Reference Interpretation Comments Range TROPONIN I (test 0.038 ng/mL See_Comment H [Automated code = 9871879240) message] The system which generated this result [...] biotin. Lab Interpretation Abnormal (test code = 90790-9) NPI:[id number] [id number] 11:19:15 Test Item Value Reference Range Interpretation Comments ESR (test code = See_Comment [Automated message] 3360766146) The system Worklight generated this result transmitted ref erence range: 0 - 10 m m/HR. The reference r laura was not used to interpret this result as normal/abnor mal. Lab Interpretation (test Normal code = 75798-4) NPI:[id number] [id number] 10:43:39 Test Item Value Reference Interpretation Comments Range TROPONIN I (test 0.037 ng/mL See_Comment H Hemolyzed code = 4003868673) specimen [Automated message] The system which generated [...] biotin. Lab Interpretation Abnormal (test code = 10777-7) NPI:[id number] HEMOGLOBIN (A1C)2021-11-04 09:01:59 Test Item Value Reference Range Interpretation Comments HGB A1C (test code = 6.0 % 4.0-5.7 H 4548-4) TIFFANY (test code = TIFFANY) Reference RangesNormal: <5.7%Prediabetes: 5.7 - 6.4%Diabetes: > 6.5% Lab Interpretation (test Abnormal code = 25747-3) NPI:[id number] 03:17:54 Test Item Value Reference Interpretation Comments Range TROPONIN I (test 0.035 ng/mL See_Comment H [Automated code = [id number]) message] The system which generated this result [...] biotin. Lab Interpretation Abnormal (test code = 27968-1) NPI:[id number]. METABOLIC PANEL (77421)2021-11-04 03:06:14 Test Item Value Reference Range Interpretation Comments NA (test code = 136 mmol/L 135-145 [id number]) K (test code = 4.4 mmol/L 3.5-5.0 9202083440) CL (test code = 99 mmol/L 98-108 3795344959) CO2 TOTAL (test code = 29 mmol/L 23-31 0545756536) AGAP (test code = 2-16 6440982722) BUN (test code = 22 mg/dL 7-23 0772390901) GLUCOSE (test code = 164 mg/dL 70-110 H 6030651329) CREATININE (test code = 0.72 mg/dL 0.60-1.25 0040771906) TOTAL BILI (test code = 1.8 mg/dL 0.1-1.1 H 8655618014) CALCIUM (test code = 9.3 mg/dL 8.6-10.6 [id number]) T PROTEIN (test code = 7.5 g/dL 6.3-8.2 1010934931) ALBUMIN (test code = 3.7 g/dL 3.5-5.0 1982216020) ALK PHOS (test code = 98 U/L 34-122 4339271945) ALTv (test code = 35 U/L 5-50 1742-6) AST(SGOT) (test code = 48 U/L 13-40 H 2857878188) eGFR (test code = mL/min/1.73m2 8502863938) TIFFANY (test code = TIFFANY) Association of [...] tests). Lab Interpretation Abnormal (test code = 33877-9) NPI:[id number], [id number] 03:05:54 Test Item Value Reference Range Interpretation Comments LIPASE (test code = 3176358443) 253 U/L 0-220 H Lab Interpretation (test code = Abnormal 82099-6) NPI:[id number] 03:03:13 Test Item Value Reference Range Interpretation Comments APTT Patient (test See_Comment [Automat ed code = 3173-2) message] The system which generated this result transmitted reference range : 23 - 38 Seconds . The reference range was not used to interpr et this result as normal/abnormal . TIFFANY (test code = TIFFANY) The [facility] patient population mean normal value for aPTT is 30 seconds. Lab Interpretation Normal (test code = 57133-7) NPI:[id number] TIME / [id number] 03:01:34 Test Item Value Reference Range Interpretation [...] tions. Lab Interpretation (test Abnormal code = 52644-0) NPI:[id number] WITH [id number] 02:55:12 Test Item Value Reference Range Interpretation [...] RDW-SD (test code = 50.4 fL 38.5-51.6 69968-4) RDW-CV (test code = 14.8 % 12.1-15.4 788-0) PLT (test code = See_Comment L [Automated 777-3) message] The sy stem which generated this result transmitted reference range : 150 - 328 10*3/ ?L. The reference r laura was not used to interpret this result as normal/abnormal . MPV (test code = 10.3 fL 9.8-13.0 04401-3) NRBC/100 WBC (test See_Comment [Automat ed code = 2293422048) message] The system which generated this result transmitted reference range : 0.0 - 10.0 /100 WBCs. The refer ence range was not u sed to interpret th is result as normal/abnormal . NRBC x10^3 (test code <0.01 See_Comment [Auto mated = 6202986679) message] The s ystem which generated this result transmitted reference range : 10*3/?L. The reference range was not used to interpret this result as normal/abnormal . GRAN MAT (NEUT) % 72.3 % (test code = 770-8) IMM GRAN % (test code 1.70 % = 8269342960) LYMPH % (test code = 16.5 % 736-9) MONO % (test code = 8.2 % 5905-5) EOS % (test code = 1.0 % 713-8) BASO % (test code = 0.3 % 706-2) GRAN MAT x10^3(ANC) 7.35 10*3/uL 1.99-6.95 H (test code = 7636826386) IMM GRAN x10^3 (test 0.17 10*3/uL 0.00-0.06 H code = 9220259586) LYMPH x10^3 (test code 1.67 10*3/uL 1.09-3.23 = 731-0) MONO x10^3 (test code 0.83 10*3/uL 0.36-1.02 = 742-7) EOS x10^3 (test code = 0.10 10*3/uL 0.06-0.53 711-2) BASO x10^3 (test code 0.03 10*3/uL 0.01-0.09 = 704-7) Lab Interpretation Abnormal (test code = 16380-3)
[2021-12-05] MEDS ORDERED: FAMOTIDINE 20 MG/2 ML VIAL IV ONE (16:04)
[2021-12-05 16:22] LABS: Absolute Lymphocytes (CBC) 0.7 K/uL (0.7-4.9); Lymphocytes % 16.4 % (15.3-44.8); RBC Red Blood Cell Count 3.82 M/uL (4.33-5.43)
[2021-12-05 16:24] LABS: Protime INR 1.19
[2021-12-05 16:42] LABS: ALT/SGPT 43 U/L (12-78); AST/SGOT 34 U/L (15-37); Albumin 2.5 g/dL (3.4-5.0); Alkaline Phosphatase 76 U/L (45-117); BUN Blood Urea Nitrogen 17 mg/dL (7-18); Bicarbonate 29 mmol/L (21-32); Bilirubin Direct 0.6 mg/dL (0-0.2); Glucose Level 96 mg/dL (74-106); Magnesium 1.9 mg/dL (1.8-2.4); NT PRO-BNP 60 pg/mL (<125); Potassium 3.7 mmol/L (3.5-5.1); Protein, Total 5.3 g/dL (6.4-8.2); Sodium Level 139 mmol/L (136-145); Troponin High Sensitivity 19.4 pg/mL (<58.9)
--- NOTE | 2021-12-05 17:08 | RAD REPORT ---
EXAM DESCRIPTION: RAD - Chest Single View - 12/05/2021 4:45 pm CLINICAL HISTORY: CHEST PAIN COMPARISON: Chest Single View dated 11/26/2021; Chest Single View dated 11/19/2021; Chest Single View dated 11/11/2021; Chest Single View dated 10/30/2021; Chest For Pe Angio dated 11/26/2021 FINDINGS: Lines: None. Lungs: Mild basilar opacities bilaterally. Pleural: Left pleural effusion. Cardiac: The heart size is within normal limits. Bones: No acute fractures. Other: IMPRESSION: Mild basilar opacities which may reflect atelectasis. Blunting of the left costophrenic angle is chronic and may be secondary to configuration of the patient's pericardial fat pad.
[2021-12-05] MEDS ORDERED: LIDOCAINE VISCOUS 2% SOLN 15 ML UDC ONE ×2 (17:23→17:24)
[2021-12-05] MEDS ORDERED: MAGNES/ALUMIN/SIMET 30ML UCUP ONE (17:24)
--- NOTE | 2021-12-05 17:31 | EDPHYS ---
Physician Documentation [facility] Name: Joseph Quach Age: 61 yrs Sex: Male : 1960 Arrival Date: 12/05/2021 Time: 15:13 Bed 19 Private MD: ED Physician Sohail Campbell HPI: 12/05 15:18 This 61 yrs old Male presents to ER via EMS with complaints of Chest Pain. pm1 15:18 The patient or guardian reports chest pain that is located primarily in the anterior pm1 aspect of right upper chest and anterior aspect of left upper chest. Onset: 6-7 weeks ago. Patient reports admission about 1 week ago with continued chest pain. The pain does not radiate. Associated signs and symptoms: Pertinent positives: pedal edema, he has not taken his evening lasix, Pertinent negatives: abdominal pain, cough, headache, shortness of breath. The chest pain is described as burning. Modifying factors: The symptoms are alleviated by nothing. the symptoms are aggravated by nothing. Severity of pain: in the emergency department the pain is unchanged. The patient has been recently been admitted at [facility], for similar complaints, but despite evaluation and treatment the patient has continued symptoms, patient with echocardiogram and cardiac catheterization during last hospitalization. Historical: - Allergies: 15:16 NKDA; ld1 - PMHx: 15:16 angina pectoris; cirrhosis of liver; COPD; High Cholesterol; Hypertensive disorder; ld1 Myocardial infarction; - PSHx: 15:16 hernia repair -1959; ld1 - Immunization history:: Adult Immunizations not up to date, Client reports having NOT received the Covid vaccine. - Social history:: Smoking status: Patient/guardian denies using tobacco, the patient reports quitting approximately 3 years ago, Patient/guardian denies using alcohol. ROS: 15:18 Constitutional: Negative for fever, chills, and weight loss. pm1 15:18 Respiratory: Negative for shortness of breath, cough, wheezing, and pleuritic chest pain, Abdomen/GI: Negative for abdominal pain, nausea, vomiting, diarrhea, and constipation, Back: Negative for injury and pain, MS/Extremity: Negative for injury and deformity, Skin: Negative for injury, rash, and discoloration, Neuro: Negative for headache, weakness, numbness, tingling, and seizure. 15:18 Cardiovascular: Positive for chest pain, edema, Negative for palpitations. 15:18 All other systems are negative. Exam: 15:18 Constitutional: This is a well developed, well nourished patient who is awake, alert, pm1 and in no acute distress. Head/Face: Normocephalic, atraumatic. 15:18 Back: No spinal tenderness. No costovertebral tenderness. Full range of motion. Skin: Warm, dry with normal turgor. Normal color with no rashes, no lesions, and no evidence of cellulitis. MS/ Extremity: Pulses equal, no cyanosis. Neurovascular intact. Full, normal range of motion. 15:18 Cardiovascular: Exam negative for acute changes, Rate: normal, Rhythm: regular, Pulses: no pulse deficits are appreciated, Heart sounds: normal. 15:18 Respiratory: Exam negative for acute changes, respiratory distress, shortness of breath, Breath sounds: are clear throughout. 15:18 Abdomen/GI: Inspection: obese Palpation: abdomen is soft and non-tender, in all quadrants. 15:18 Neuro: Exam negative for acute changes, Orientation: is normal, Mentation: is normal, Motor: is normal, moves all fours. Vital Signs: 15:15 BP 141 / 129; Pulse 69; Resp 18; Temp 98.1(TE); Pulse Ox 95% on R/A; Weight 109.77 kg; ld1 Height 5 ft. 11 in. (180.34 cm); Pain 10/10; 16:42 BP 97 / 72; Pulse 73; Resp 18; Pulse Ox 97% on R/A; ld1 17:25 BP 112 / 67; Pulse 77; Resp 18; Pulse Ox 97% on R/A; ld1 15:15 Body Mass Index 33.75 (109.77 kg, 180.34 cm) ld1 MDM: 15:16 Patient medically screened. pm1 15:18 Data interpreted: Pulse oximetry: on room air is 97 %. Interpretation: normal. pm1 15:46 Data reviewed: old medical records, Echocardiogram from October admission reviewed. pm1 Patient with 60 to 65% ejection fraction. Cardiac cath on 11/27/2021 reviewed and patient with normal coronaries. 17:27 ED course: patient reports resolution of his chest pain with medications given in the pm1 ER. Patient with negative cardiac catheterization, EF 60-65, negative cardiac work up today and resolution of chest pain with medications targeting burning pain which appears to be GI related. Will discharge home with Pepcid and follow up with GI. patient requested his Lasix since he has not taken his second dose for the day. 17:29 Counseling: I had a detailed discussion with the patient and/or guardian regarding: the pm1 historical points, exam findings, and any diagnostic results supporting the discharge/admit diagnosis, lab results, radiology results, the need for outpatient follow up, a conveyancer, to return to the emergency department if symptoms worsen or persist or if there are any questions or concerns that arise at home. 12/05 15:17 Order name: Basic Metabolic Panel; Complete Time: 16:47 pm1 12/05 15:17 Order name: CBC with Diff; Complete Time: 16:28 pm1 12/05 15:17 Order name: LFT's; Complete Time: 16:47 pm1 12/05 15:17 Order name: Magnesium; Complete Time: 16:47 pm1 12/05 15:17 Order name: NT PRO-BNP; Complete Time: 16:47 pm1 12/05 15:17 Order name: PT-INR; Complete Time: 16:28 pm1 12/05 15:17 Order name: Troponin HS; Complete Time: 16:47 pm1 12/05 15:17 Order name: XRAY Chest (1 view); Complete Time: 17:16 pm1 12/05 15:17 Order name: EKG; Complete Time: 15:18 pm1 12/05 15:17 Order name: Cardiac monitoring; Complete Time: 15:47 pm1 12/05 15:58 Order name: COVID-19 SARS RT PCR (Document "Date of Onset" if Symptomatic); Complete ld1 Time: 17:01 12/05 15:17 Order name: EKG - Nurse/Tech; Complete Time: 15:47 pm1 12/05 15:17 Order name: IV Saline Lock; Complete Time: 16:05 pm1 12/05 15:17 Order name: Labs collected and sent; Complete Time: 16:05 pm1 12/05 15:17 Order name: O2 Per Protocol; Complete Time: 15:19 pm1 12/05 15:17 Order name: O2 Sat Monitoring; Complete Time: 15:19 pm1 Administered Medications: 16:04 Drug: Pepcid (famotidine) 20 mg Route: IVP; Site: left wrist; ld1 17:21 Drug: GI Cocktail without - (Maalox Suspension 30 ml, Lidocaine Liquid 2 % 15 ld1 ml) Route: PO; 17:37 Drug: LaSIX (furosemide) 40 mg Route: PO; ld1 Disposition Summary: 12/05/21 17:30 Discharge Ordered Location: Home pm1 Problem: new pm1 Symptoms: have improved pm1 Condition: Stable pm1 Diagnosis - Chest pain, unspecified pm1 Followup: pm1 - With: Emergency Department - When: As needed - Reason: Worsening of condition Followup: pm1 - With: Private Physician - When: 2 - 3 days - Reason: Recheck today's complaints, Continuance of care, Re-evaluation by your physician Discharge Instructions: - Discharge Summary Sheet pm1 - Nonspecific Chest Pain, Adult pm1 Forms: - Medication Reconciliation Form pm1 - Thank You Letter pm1 - Antibiotic Education pm1 - Prescription Opioid Use pm1 Prescriptions: - Pepcid 20 mg Oral Tablet - take 1 tablet by ORAL route every 12 hours for 10 days; 20 tablet; Refills: 0, pm1 Product Selection Permitted Signatures: Dispatcher [employer] EDMS Andrzej Murillo, NICOLA TIMBER GIRDLER pm1 Alfreda Corral, RN RN ld1
--- NOTE | 2021-12-05 17:31 | ER ---
Nurse's Notes [facility] Name: Joseph Quach Age: 61 yrs Sex: Male : 1960 Arrival Date: 12/05/2021 Time: 15:13 Bed 19 Private MD: Diagnosis: Chest pain, unspecified Presentation: 12/05 15:15 Chief complaint: EMS states: toned out for Right sided chest pain. Pt c/o chest pain ld1 right sided. Coronavirus screen: At this time, the client does not indicate any symptoms associated with coronavirus-19. Ebola Screen: No symptoms or risks identified at this time. Initial Sepsis Screen: Does the patient meet any 2 criteria? No. Patient's initial sepsis screen is negative. Does the patient have a suspected source of infection? No. Patient's initial sepsis screen is negative. Risk Assessment: Do you want to hurt yourself or someone else? Patient reports no desire to harm self or others. Onset of symptoms was December 05, 2021. 15:15 Method Of Arrival: EMS: [facility] ld1 15:15 Acuity: AISLINN 3 ld1 Triage Assessment: 15:16 General: Appears in no apparent distress. uncomfortable, Behavior is cooperative, ld1 anxious. Pain: Complains of pain in chest Pain does not radiate. Pain currently is 9 out of 10 on a pain scale. Quality of pain is described as throbbing. EENT: No signs and/or symptoms were reported regarding the EENT system. Neuro: Level of Consciousness is awake, alert, obeys commands, Oriented to person, place, time, situation. Cardiovascular: Capillary refill < 3 seconds Patient's skin is warm and dry. Rhythm is. Respiratory: Airway is patent Respiratory effort is even, unlabored. GI: Abdomen is round distended, Bowel sounds present X 4 quads. : No signs and/or symptoms were reported regarding the genitourinary system. Derm: No signs and/or symptoms reported regarding the dermatologic system. Musculoskeletal: No signs and/or symptoms reported regarding the musculoskeletal system. Historical: - Allergies: 15:16 NKDA; ld1 - PMHx: 15:16 angina pectoris; cirrhosis of liver; COPD; High Cholesterol; Hypertensive disorder; ld1 Myocardial infarction; - PSHx: 15:16 hernia repair -1960; ld1 - Immunization history:: Adult Immunizations not up to date, Client reports having NOT received the Covid vaccine. - Social history:: Smoking status: Patient/guardian denies using tobacco, the patient reports quitting approximately 3 years ago, Patient/guardian denies using alcohol. Screenin:18 Abuse screen: Denies threats or abuse. Denies injuries from another. Nutritional ld1 screening: On. Nutritional screening: No deficits noted. Tuberculosis screening: No symptoms or risk factors identified. Fall Risk None identified. Assessment: 15:18 Reassessment: See triage assessment. Pain: Complains of pain in chest. ld1 16:05 Reassessment: Patient appears in no apparent distress at this time. ld1 16:42 Reassessment: Patient appears in no apparent distress at this time. Patient and/or ld1 family updated on plan of care and expected duration. Pain level reassessed. 17:25 Reassessment: Patient appears in no apparent distress at this time. Patient and/or ld1 family updated on plan of care and expected duration. Pain level reassessed. Vital Signs: 15:15 BP 141 / 129; Pulse 69; Resp 18; Temp 98.1(TE); Pulse Ox 95% on R/A; Weight 109.77 kg; ld1 Height 5 ft. 11 in. (180.34 cm); Pain 10/10; 16:42 BP 97 / 72; Pulse 73; Resp 18; Pulse Ox 97% on R/A; ld1 17:25 BP 112 / 67; Pulse 77; Resp 18; Pulse Ox 97% on R/A; ld1 15:15 Body Mass Index 33.75 (109.77 kg, 180.34 cm) ld1 ED Course: 15:13 Patient arrived in ED. ld1 15:15 Andrzej Murillo NP is PHCP. pm1 15:15 Sohail Campbell MD is Attending Physician. pm1 15:16 Triage completed. ld1 15:16 Arm band placed on right wrist. ld1 15:18 Patient has correct armband on for positive identification. Placed in gown. Bed in low ld1 position. Call light in reach. Side rails up X2. materials and processes manager on. Pulse ox on. NIBP on. Door closed. Noise minimized. Warm blanket given. 15:18 No provider procedures requiring assistance completed. Patient maintains SpO2 ld1 saturation greater than 95% on room air. 15:19 Alfreda Corral, RN is Primary Nurse. ld1 15:48 Missed attempt(s): 22 gauge in left hand. Bleeding controlled, band aid applied, ll1 catheter tip intact. 15:50 Missed attempt(s): 22 gauge in left wrist. Bleeding controlled, band aid applied, ll1 catheter tip intact. 16:08 COVID-19 SARS RT PCR (Document "Date of Onset" if Symptomatic) Sent. ld1 16:47 XRAY Chest (1 view) In Process Unspecified. EDMS 17:50 IV discontinued, intact, bleeding controlled, No redness/swelling at site. ld1 Administered Medications: 16:04 Drug: Pepcid (famotidine) 20 mg Route: IVP; Site: left wrist; ld1 17:21 Drug: GI Cocktail without - (Maalox Suspension 30 ml, Lidocaine Liquid 2 % 15 ld1 ml) Route: PO; 17:37 Drug: LaSIX (furosemide) 40 mg Route: PO; ld1 Outcome: 17:30 Discharge ordered by MD. pm1 17:50 Discharged to home ambulatory. ld1 17:50 Condition: stable 17:50 Discharge instructions given to patient, Instructed on discharge instructions, follow up and referral plans. Demonstrated understanding of instructions, follow-up care. 17:50 Patient left the ED. ld1 Signatures: Dispatcher [employer] EDMS Andrzej Murillo, NICOLA BLACK LEATHER BUFFER pm1 Romeo Ashton RN RN ll1 Alfreda Corral, RN RN ld1
[2021-12-05] MEDS ORDERED: FUROSEMIDE 20 MG TABLET ONE (17:35)
[2021-12-05 18:12] VITALS: TEMP 98.1
[2021-12-05 18:13] VITALS: O2SAT 97
[2021-12-05 18:15] VITALS: BP 112/67
--- NOTE | 2021-12-07 09:01 | EKG ---
Test Date: 2021-12-05 Test Time: 15:25:47 Teaching Associate: GRACIELA MEASUREMENT RESULTS: Intervals: Rate: 65 MN: 142 QRSD: 82 QT: 376 QTc: 391 Combs: P: 85 MN: 142 QRS: 86 T: 86 INTERPRETIVE STATEMENTS: Normal sinus rhythm Normal ECG Compared to ECG 11/26/2021 03:13:44 Sinus tachycardia no longer present Atrial premature complex(es) no longer present Aberrant conduction of supraventricular beat(s) no longer present Electronically Signed On 12-07-21 08:56:56 CDT by Manuel Joya
== END 2021-12-05 17:50 | disposition home or self-care (01) ==
LOC: ER 15:12
DX: R07.9 Chest pain, unspecified (principal); I25.2 Old myocardial infarction; I10 Essential (primary) hypertension; J44.9 Chronic obstructive pulmonary disease, unspecified; Z20.822 Contact with and (suspected) exposure to COVID-19
CPT/HCPCS: 93005; 85025; 80048; 36415; 83735; 85610; 80076; 84484; 83880; 71045; 96374; 99285; U0003; J3490

== ENCOUNTER 2021-12-07 22:09 | Emergency (ER) | payer OTHER ==
--- OUTSIDE RECORDS SUMMARY | 2021-12-07 22:12 | XMS REPORT | Continuity of Care Document ---
:1960 Author Organization [facility] t Address [address] [place] [address] Care Team Providers Name Role Phone PHONG Primary Care Physician Unavailable Stuart STORY Attending Clinician Unavailable PONCHO Attending Clinician Unavailable Oren BLACK, S Attending Clinician America STEELE Attending Clinician Poncho STEELE Attending Clinician PONCHO Admitting Clinician Unavailable Poncho STEELE Admitting Clinician Payers Payer Name Policy Type Policy Number Effective Date Expiration Date S ource [place]ID [place] [id number] 2020 00:00:00 Problems Condition Condition Condition Status Onset Resolution Last Treating Co mments Source Name Details Category Date Date Treatment Clinician Date COPD with COPD with Disease Active NPI :183 acute acute 11-05 [id number] exacerbati exacerbati 00:00: on on 00 Obesity Obesity Disease Active NPI:183 (BMI (BMI 11-04 5732402 30-39.9) 30-39.9) 00:00: 00 COPD COPD Disease Active NPI:183 exacerbati exacerbati 11-04 54586 on on 00:00: 00 Troponin I Troponin I Disease Active N PI:183 above above 11-04 [id number] reference reference 00:00: range range 00 Cigarette Cigarette Disease Active NPI :183 smoker smoker 11-04 [id number] 00:00: 00 Chest pain Chest pain Disease Active N PI:183 11-03 [id number] 00:00: 00 Allergies, Adverse Reactions, Alerts Allergy Allergy Status Severity Reaction(s) Onset Inactive Treating Comm ents Source Name Type Date Date Clinician Seafood/ Propensi Active Rash 2018-08 NPI:18 3 Fish ty to 2-17 0729605 adverse 00:00: reaction 00 s SEAFOOD/ Food Active Rash 2018-08 NPI:183 FISH 2-17 5529153 00:00: 00 Social History Social Habit Start Date Stop Date Quantity Comments Source Exposure to Not sure NPI:[id number] 1 SARS-CoV-2 (event) Alcohol intake 2021-11-04 2021-11-04 Ex-drinker NPI:[id number] 00:00:00 00:00:00 (finding) Education 2021-11-04 2021-11-04 9 00:00:00 00:00:00 Tobacco use and 2019-05-29 2019-05-29 Current user NPI:608 [id number] exposure 00:00:00 00:00:00 History of tobacco 2017-05-29 Smoker NPI:18 [id number] use 00:00:00 Sex [birth year] At [birth year] NPI:[id number] 67063 00:00:00 00:00:00 Smoking Status Start Date Stop Date Source Former smoker 2019-05-29 00:00:00 2019-05-29 00:00:00 NPI:1831 [id number] Medications Ordered Filled Start Stop Current Ordering Indication Dosage Frequency Signature Comments Components Source Medication Medication Date Date Medication? Clinician (SIG) Name Name carol 2021- 500mg 500 mg, N PI:183 n 11-06 Oral, 8363593 (ZITHROMAX) 13:00: 00:59 ONCE, 1 tablet 500 00 :00 dose, On mg 11/06/21 at 0800, Routine
Reason for Anti-Infec tive: Empiric Therapy for Suspected Infection< br>Empiric Therapy Site: Respirator y
Durat ion of therapy: 72 hours aspirin 2021- Yes [id number] 325mg Take 1 N PI:183 E.C. 325 mg 11-06-09 tablet by 13 [id number] EC tablet 00:00: 04:59 mouth 00 :00 daily with breakfast for 30 days. cholecalcif 2021- Yes [id number] 2000U Take 2 NPI:183 tere, 4 05-09 tablets by [id number] vitamin D3, 00:00: 04:59 mouth 25 mcg 00 :00 daily for (1,000 30 days. unit) tablet metoprolol 2021- Yes [id number] 25mg Take 1 NPI:183 succinate 11-06-09 tablet by [id number] XL 25 mg 24 00:00: 04:59 mouth hr tablet 00 :00 daily for 30 days. aspirin 2021- Yes [id number] 325mg Take 1 N PI:183 E.C. 325 mg 11-06-09 tablet by 13 [id number] EC tablet 00:00: 04:59 mouth 00 :00 daily with breakfast for 30 days. cholecalcif 2021- Yes [id number] 2000U Take 2 NPI:183 tere, 11-06-09 tablets by [id number] vitamin D3, 00:00: 04:59 mouth 25 mcg 00 :00 daily for (1,000 30 days. unit) tablet metoprolol 2021- Yes [id number] 25mg Take 1 NPI:183 succinate 11-06 05-09 tablet by [id number] XL 25 mg 24 00:00: 04:59 mouth hr tablet 00 :00 daily for 30 days. predniSONE 2021- Yes [id number] 50mg Take 1 NPI:183 50 mg 11-06-12 tablet by [id number] tablet 00:00: 04:59 mouth 00 :00 every day at 1200 (noon) for 3 days. predniSONE 2021- Yes [id number] 50mg Take 1 NPI:183 50 mg 4-12 tablet by [id number] tablet 00:00: 04:59 mouth 00 :00 every day at 1200 (noon) for 3 days. mometasone/ Yes Inhale. NPI :183 formoterol 4-07 [id number] (DULERA 18:48: INHALE) 11 mometasone/ 2021-0 Yes Inhale. NPI :183 formoterol 4-07 [id number] (DULERA 18:48: INHALE) 11 cholecalcif 2021-0 Yes 2000U 2,000 NPI: 183 tere 4-07 Units, 9352058 (vitamin 15:00: Oral, D3) tablet 00 DAILY, 2,000 Units First dose on Maribell 11/05/21 at 1000, Until Discontinu ed, Routine gabapentin 2021-0 202- No 300mg Take 300 N PI:183 300 mg 4- 04-07 mg by [id number] capsule 14:03: 00:00 mouth 2 31 :00 (two) times daily. Unsure on dose ALBUTEROL 0 2021- No Inhale. NPI: 183 INHALE 4-07 04-07 [id number] 14:03: 00:00 31 :00 albuterol 2021-0 Yes [id number] 2{puff} Inhale 2 NPI:183 90 4-07 Puffs [id number] mcg/actuati 00:00: every 6 on inhaler 00 (six) hours as needed for Wheezing or Shortness of Breath. Budesonide 0 Yes [id number] 1{puff} Inhale 1 NPI:183 90 4-07 Puff every 3983962 mcg/actuati 00:00: morning on aerosol 00 and powder evening. HYDROcodone 2021-0 Yes 4647 1{tbl} Take 1 STAFF COUNSEL I:183 -acetaminop 4-07 tablet by 131 8781 hen 5-325 00:00: mouth mg tablet 00 every 6 (six) hours as needed for Pain (scale 4-6). Indication s: acute pain albuterol 2021-0 Yes [id number] 2{puff} Inhale 2 NPI:183 90 4-07 Puffs 0246091 mcg/actuati 00:00: every 6 on inhaler 00 (six) hours as needed for Wheezing or Shortness of Breath. Budesonide 0 Yes [id number] 1{puff} Inhale 1 NPI:183 90 4-07 Puff every 4718496 mcg/actuati 00:00: morning on aerosol 00 and powder evening. HYDROcodone Yes 4647 1{tbl} Take 1 STAFF COUNSEL I:183 -acetaminop -07 tablet by 131 8781 hen 5-325 00:00: mouth mg tablet 00 every 6 (six) hours as needed for Pain (scale 4-6). Indication s: acute pain gabapentin 2021- Yes [id number] 300mg Take 1 NPI:183 300 mg 11-05- capsule by [id number] 1 capsule 00:00: 04:59 mouth 2 00 :00 (two) times daily for 30 days. gabapentin 2021- Yes [id number] 300mg Take 1 NPI:183 300 mg 11-05- capsule by [id number] 1 capsule 00:00: 04:59 mouth 2 00 :00 (two) times daily for 30 days. azithromyci 2021- Yes [id number] 500mg Take 1 NPI:183 n 500 mg 11-05 tablet [place] [id number] 81 tablet 00:00: 04:59 mouth 00 :00 daily for 2 doses. azithromyci 2021- Yes [id number] 500mg Take 1 NPI:183 n 500 mg 11-05 [place] [address]69 81 tablet 00:00: 04:59 mouth 00 :00 daily for 2 doses. enoxaparin Yes 30mg 30 mg, NPI:1 83 (LOVENOX) 11-04 Subcutaneo 1318 781 injection 22:00: us, DAILY, 30 mg 00 First dose on Tue11/04/21 at 1700, Until Discontinu ed, Routine sulfur 2021- No [id number] 5mL 5 mL, NPI: 183 hexafluorid 11-04-06 Intravenou 1 318838 e microsphr 17:45: 17:45 s, ONCE, 1 (LUMASON) 00 :00 dose, On injection 5 Tue11/04/21 mL at 1245, Routine
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 approving Restricted medication : ERIC ARANA predniSONE Yes 50mg 50 mg, NPI:1 83 (DELTASONE) 4-06 Oral, 7137375 tablet 50 17:00: QNOON, mg 00 First dose on Tue11/04/21 at 1200, Until Discontinu ed, Routine morpHINE 0 2021- No 2mg 2 mg, Slow STAFF COUNSEL I:183 injection 2 11-04 04-06 IV Push, 131 8781 mg 16:15: 15:22 ONCE, 1 00 :00 dose, On Tue11/04/21 at 1115, Routine HYDROcodone 2021-0 Yes 1{tbl} 1 tablet, NPI:183 -acetaminop -06 Oral, 8897380 hen (NORCO 15:06: Q6HPRN, 5) 5-325 mg 46 Starting tablet 1 on Tue tablet 11/04/21 at 1006, Until Discontinu ed, Routine, Pain (scale 4-6) metoprolol Yes 25mg 25 mg, NPI:1 83 succinate 11-04 Oral, [id number] XL (TOPROL 14:00: DAILY, XL) tablet 00 First dose 25 mg on Tue11/04/21 at 0900, Until Discontinu ed, Routine azithromyci 2021- No 500mg 500 mg, IV NPI:183 n 11-04 04-07 Piggyback, [id number] (ZITHROMAX) 09:00: 13:35 Q24H ABX, 500 mg [...] 7 days aspirin Yes 325mg 325 mg, NPI:18 3 E.C. 4-06 Oral, QAM [id number] (ECOTRIN) 08:30: WITH tablet 325 00 BREAKFAST, mg First dose on Tue11/04/21 at 0330, Until Discontinu ed, Routine budesonide Yes .5mg 0.5 mg, NPI: 183 (PULMICORT [...] at 0300, Until Discontinu ed, Routine gabapentin 0 Yes 300mg 300 mg, NPI :183 (NEURONTIN) 4-06 Oral, BID, 13 93088 capsule 300 08:00: First dose mg 00 on Tue11/04/21 at 0300, Until Discontinu ed, Routine docusate Yes 100mg 100 mg, NPI:1 83 (COLACE) 4-06 Oral, BID, 62714 81 capsule 100 08:00: First dose mg 00 on Tue11/04/21 at 0300, Until Discontinu ed, Routine ondansetron Yes 4mg 4 mg, Slow NPI:183 (ZOFRAN 4-06 IV Push, 0684329 (PF)) 07:56: Q6HPRN, injection 4 12 Starting mg on Tue11/04/21 at 0256, Until Discontinu ed, Routine, Nausea and Vomiting (N/V) ipratropium 2021- No 3mL 3 mL, NPI: 183 -albuteroL - 04-06 Inhalation 13 54845 (DUONEB) 04:45: 03:59 , ONCE, 1 0.5 mg-3 00 :00 dose, On mg(2.5 mg Tue11/03/21 base)/3 mL at 2345, nebulizer Routine solution 3 mL methylpredn 2021- No 125mg 125 mg, IV NPI:183 isolone sod - 04-06 Piggyback, 1 061982 succ 04:45: 04:59 ONCE, 1 (SOLU-MEDRO 00 :00 dose, On L) Tue11/03/21 injection at 2345, 125 mg LARRY Vital Signs Vital Name Observation Time Observation Value Comments Source Oxygen saturation in 2021-11-05 21:30:00 93 /min Arterial blood by Pulse oximetry Respiratory rate 2021-11-05 21:30:00 20 /min Systolic blood pressure 2021-11-05 16:16:00 116 mm[Hg] Diastolic blood 2021-11-05 16:16:00 71 mm[Hg] NPI:1 [id number] pressure Heart rate 2021-11-05 16:16:00 95 /min NPI:1831 [id number] Body temperature 2021-11-05 16:16:00 36.28 Lesley Body weight 2021-11-05 09:32:00 100.971 kg NPI:1831 532158 BMI 2021-11-05 09:32:00 31.05 kg/m2 NPI:1831 [id number] Body height 2021-11-04 17:37:00 180.3 cm NPI:183 [id number] Procedures Procedure Date / Time Performed Performing Clinician Sourc e MAGNESIUM 2021-11-05 16:31:00 Nader Cross NPI:[id number] COMP. METABOLIC PANEL 2021-11-05 16:31:00 Nader Cross NPI:18 [id number] (89595) LIPID PANEL (51012)(TOTAL 2021-11-05 16:31:00 Jorge Fernández CHOLESTEROL, TRIGLYCERIDES, HDL) TROPONIN I 2021-11-05 09:50:00 Nader Cross NPI:[id number] 81 FREE T4 2021-11-05 09:50:00 Jorge Fernández NPI:[id number] THYROID STIMULATING HORMONE 2021-11-05 09:50:00 Stephen Fernández N-TERMINAL PRO-BNP 2021-11-05 09:50:00 Nader Cross NPI:[id number] TROPONIN I 2021-11-04 23:44:00 Nader Cross NPI:[id number] 81 TRANSTHORACIC ECHO (TTE) 2021-11-04 17:37:10 Nader Cross NPI :[id number] COMPLETE W/ CONTRAST PHOSPHORUS 2021-11-04 12:05:00 Nader Cross NPI:[id number] 81 URIC ACID 2021-11-04 12:05:00 America, Nader NPI:[id number] 81 MAGNESIUM 2021-11-04 12:05:00 America, Nader NPI:[id number] 81 TROPONIN I 2021-11-04 12:05:00 America, Nader NPI:[id number] 81 LIPID PANEL (54517)(TOTAL 2021-11-04 12:05:00 America Nader STAFF COUNSEL I:[id number] CHOLESTEROL, TRIGLYCERIDES, HDL) VITAMIN B12, LEVEL 2021-11-04 08:48:00 America, Nader NPI:[id number] TROPONIN I 2021-11-04 08:48:00 America Haiedmond NPI:[id number] 81 SEDIMENTATION RATE 2021-11-04 08:48:00 America, Nader NPI:[id number] VITAMIN D, 25-OH 2021-11-04 08:48:00 AmericaNader agudelo NPI:[id number] 781 PROCALCITONIN 2021-11-04 08:48:00 America, Haiedmond NPI:[id number] 81 URINE DRUG (IMMUNOASSAY) - 2021-11-04 08:08:00 AmericaHaiedmond N PI:[id number] COMPREHENSIVE DRUG SCREEN URINALYSIS 2021-11-04 08:08:00 America Haiedmond NPI:[id number] 81 URINE CULTURE 2021-11-04 08:08:00 America, Nader NPI:[id number] 81 UREA NITROGEN, URINE RANDOM 2021-11-04 08:08:00 Nader Cross SODIUM, URINE RANDOM 2021-11-04 08:08:00 America Haiedmond NPI:[id number] PROTEIN CREAT RATIO URINE 2021-11-04 08:08:00 AmericaNader agudelo STAFF COUNSEL I:[id number] RANDOM RESPIRATORY PANEL BY PCR 2021-11-04 08:08:00 Aemrica, Nader NPI :[id number] COVID-19 (ID NOW RAPID 2021-11-04 04:03:00 Sheba Lott NPI:1 [id number] TESTING) LAB ONLY COVID 2021-11-04 04:03:00 Sheba Lott NPI:[id number] 81 INTERPRETATION XR CHEST 1 VW 2021-11-04 02:57:00 Violeta Lemonshayla Castro NPI:[id number] 781 ACUTE CARE ARTERIAL BLOOD 2021-11-04 02:57:00 PenelopeilirNeo namnova Castro N PI:[id number] GAS LIPASE 2021-11-04 02:45:00 Lucinaviv Birgit Castro NPI:[id number] 781 TROPONIN I 2021-11-04 02:45:00 Neo Lemonnova Castro NPI:[id number] 781 COMP. METABOLIC PANEL 2021-11-04 02:45:00 PenelopeilirNeo namnova Castro NPI:1 [id number] ([id number]) CBC WITH DIFF 2021-11-04 02:45:00 PenelopeilirNeo namnova Castro NPI:[id number] 781 GLYCOSYLATED HEMOGLOBIN 2021-11-04 02:45:00 Nader Cross (A1C) PROTHROMBIN TIME / INR 2021-11-04 02:45:00 PenelopeilirNeo namnova Castro ACTIVATED PARTIAL THRMPLAS 2021-11-04 02:45:00 PenelopeilirNeo namnova Castro MARIAM HB ECG ROUTINE & RHYTHM 2021-11-04 02:13:29 PenelopeilirNeo namnova Castro NPI :[id number] STRIP NOTICE OF PRIVACY PRACTICES 2021-11-04 01:59:17 Doctor Jamin miller, No Name CONSENT/REFUSAL FOR 2021-11-04 01:58:37 Doctor Unassigned, No STAFF COUNSEL I:[id number] DIAGNOSIS AND TREATMENT Name Encounters Start End Encounter Admission Attending Care Care Encounter Source Date/Time Date/Time Type Type Clinicians Facility Department ID 2021-11-06 2021-11-06 Transition DONAVAN Davidson [id number] NPI:183 00:00:00 00:00:00 of Care Nickie RACH [id number] [facility] 4.2.7.2.686 [id number] 2021-11-03 2021-11-05 Outpatient X [facility] [id number] NPI:183 21:06:00 18:36:00 ALEXIS [id number] 1 2021-11-03 2021-11-05 [facility] Sheba Lott [facility] [id number] NPI:183 21:06:00 18:36:00 Encounter Nader Cross [id number] [id number] Alexis Carey [place] 4.2.7.2.686 [facility] [id number] Results Test Description Test Time Test Comments Results Result Comments Source LIPID PANEL (08061)(TOTAL CHOLESTEROL, TRIGLYCERIDES, HDL) 17:05:42 Test Item Value Reference Range Interpretation Comme nts CHOL (test code = 8831100069) 186 mg/dL 120-200 HDL (test code = 6907853526) 45 mg/dL >40 HDLC RATIO (test code = See_Comment [Au tomated message] The 3139308178) system which [employer] nerated this result transmit michael reference range: <=5.0. T he reference range was not u sed to interpret this result as normal/abnormal . TRIG (test code = 2856434319) 64 mg/dL 30-170 LDL CHOL (test code = 61861-5) 128 mg/dL See_Comment [Automated message] The system which [employer] nerated this result transmit michael reference range: <=160. T he reference range was not u sed to interpret this result as normal/abnormal . VLDL (test code = 9410325849) 13 mg/dL 5-60 Lab Interpretation (test code = Normal 00293-1) NPI:[id number]. METABOLIC PANEL (23712)2021-11-05 17:05:21 Test Item Value Reference Range Interpretation Comments NA (test code = 138 mmol/L 135-145 0924677814) K (test code = 4.6 mmol/L 3.5-5.0 5774611144) CL (test code = 104 mmol/L 98-108 6923314879) CO2 TOTAL (test code = 30 mmol/L 23-31 6121317932) AGAP (test code = 2-16 9158306557) BUN (test code = 20 mg/dL 7-23 3203101191) GLUCOSE (test code = 102 mg/dL 70-110 7890683791) CREATININE (test code = 0.63 mg/dL 0.60-1.25 2271606798) TOTAL BILI (test code = 1.2 mg/dL 0.1-1.1 H 5028890124) CALCIUM (test code = 9.0 mg/dL 8.6-10.6 6227141544) T PROTEIN (test code = 6.6 g/dL 6.3-8.2 7053258618) ALBUMIN (test code = 3.2 g/dL 3.5-5.0 L 9396597124) ALK PHOS (test code = 75 U/L 34-122 0860440274) ALTv (test code = 35 U/L 5-50 2-6) AST(SGOT) (test code = 39 U/L 13-40 9396624399) eGFR (test code = mL/min/1.73m2 3989005536) TIFFANY (test code = TIFFANY) Association of [...] tests). Lab Interpretation Abnormal (test code = 02286-0) NPI:[id number] 17:05:21 Test Item Value Reference Range Interpretation Comments MAGNESIUM (test code = 5896916750) 1.9 mg/dL 1.7-2.4 Lab Interpretation (test code = Normal 92005-3) NPI:[id number] STIMULATING [id number] 12:35:38 Test Item Value Reference Range Interpretation Comments TSH (test code = See_Comment [Automated message] 7212745066) The system [employer] generated this result transmitted ref erence range: 0.45 - 4 .70 mIU/L. The refe rence range was not u sed to interpret this result as normal/abnor mal. Lab Interpretation (test Normal code = 42897-5) NPI:[id number] [id number] 12:22:17 Test Item Value Reference Range Interpretation Comments FREE T4 (test code = See_Comment [Autom ated message] 0566962327) The system [employer] generated this result transmitted ref erence range: 0.78 - 2 .20 ng/dL:. The ref erence range was not u sed to interpret this result as normal/abnor mal. Lab Interpretation (test Normal code = 40400-3) NPI:[id number] [id number] 12:16:59 Test Item Value Reference Interpretation Comments Range TROPONIN I (test 0.026 ng/mL See_Comment [Automated code = 0113940439) message] The system which generated this result [...] biotin. Lab Interpretation Normal (test code = 12118-8) NPI:[id number]-IJGEIRJK [id number] 12:13:58 Test Item Value Reference Range Interpretation Comments NT-proBNP (test code 228 pg/mL See_Comment H [Autom ated = 2370653284) message] The system which generated this result transmitted reference range : <=125. The reference range was not used to interpret this result as normal/abnormal . TIFFANY (test code = TIFFANY) Biotin has been reported to cause a negative bias, interpret results relative to patient's use of biotin. Lab Interpretation Abnormal (test code = 80574-4) NPI:[id number] echo (TTE)2021-11-05 00:59:55 Test Item Value Reference Range Interpretation Comments LVIDD (test code = 4.50 cm 4056600097) IVS (test code = 1.10 cm 9762663897) Interventricular Septum 1.10 cm Diastolic Thickness by 2D (test code = 4379443) LVPWD (test code = 1.24 cm 1230226211) PW (test code = 1.24 cm 0.6-1.0 7146725331) LVOT diameter (test code 1.92 cm = 4684629070) ACS (test code = 1.82 cm 9060488986) Ao root annulus (test 3.5 cm code = 4104779740) Ao root diam (test code 3.50 cm = 8229686047) Aortic root (test code = 3.5 cm 5281883322) LA size (test code = 4.6 cm 8233678484) E wave decelartion time 0.21 s (test code = 0781377474) MV Peak E William (test code 64.9 cm/s = 6392907933) MV Peak A William (test code 83.8 cm/s = 3318073521) E/A ratio (test code = ratio 2782924173) MV Prop V (test code = 65.80 cm/s 3788195027) Tapse (test code = 1.92 cm 6285414718) LVOT stroke volume (test 67.60 cm3 code = 3146100559) LVOT peak william (test code 110.2 cm/s = 0969374806) LVOT mn grad (test code mmHg = 5142428590) AV LVOT peak gradient mmHg (test code = 5534373490) LVOT peak VTI (test code 23.3 cm = 3569709680) LV V1 mean (test code = 62.80 cm/s 2174946592) Aortic valve mean 129.2 cm/s velocity (test code = 7573664672) Ao peak william (test code = 230.1 cm/s 9312372394) Ao VTI (test code = 39.0 cm 5235120320) AV area by cont VTI 1.7 cm2 (test code = 0651896209) AV area peak william (test 1.4 cm2 code = 0785441456) Ao max PG (test code = 21.20 mm[Hg] 1655289303) AV peak gradient (test mmHg code = 9246889098) AV valve area (test code 1.73 cm2 = 1777959738) AV mean gradient (test mmHg code = 9955635208) TR Peak William (test code = 233.7 cm/s 7203059347) Triscuspid Valve mmHg Regurgitation Peak Gradient (test code = 6925844899) EF(Teich) (test code = 60.40 % 8206548443) LVIDS (test code = 3.10 cm 6797229063) FS (test code = 32 % 3504858726) EF - 2D (test code = 60.40 % 35406178) Radiology Study observation (narrative) (test code = 18528-2) TIFFANY (test code = TIFFANY) ?Left?Ventricle: Left [...] (99.8 kg) 2.23 sq meters 130/95 88 NPI:[id number] [id number] 00:28:36 Test Item Value Reference Interpretation Comments Range TROPONIN I (test 0.015 ng/mL See_Comment [Automated code = 1285992583) message] The system which generated this result [...] biotin. Lab Interpretation Normal (test code = 41143-6) NPI:[id number] D, [id number] 17:50:34 Test Item Value Reference Range Interpretation Comments VIT D 25OH (test code = 19 ng/mL 25-80 L 10580-5) TIFFANY (test code = TIFFANY) Deficiency: <20 ng/mLInsufficiency: 20-24 ng/mLOptimal: 25-80 ng/mL Lab Interpretation (test Abnormal code = 53609-2) NPI:[id number] 16:54:29 Test Item Value Reference Range Interpretation Comments Procalcitonin (test 0.03 ng/mL <0.07 code = 9468813642) TIFFANY (test code = TIFFANY) INTERPRETATION OF [...] lung abscess/empyema. For further information please refer to:[email or web address] Lab Interpretation Normal (test code = 80746-6) NPI:[id number] B12, [id number] 16:39:51 Test Item Value Reference Range Interpretation Comments VIT B12 (test code = 636 pg/mL 240-930 9069259472) TIFFANY (test code = TIFFANY) Biotin has been reported to cause a positive bias, interpret results relative to patient's use of biotin. Lab Interpretation (test Normal code = 97852-1) NPI:[id number] PANEL (40486)(TOTAL CHOLESTEROL, TRIGLYCERIDES, HDL) 2021-11-04 15:21:56 Test Item Value Reference Range Interpretation Comments CHOL (test code = 183 mg/dL 120-200 4697978032) HDL (test code = 40 mg/dL >40 L 7224265962) HDLC RATIO (test code = See_Comment [Au tomated message] 1999834524) The system [employer] generated this result transmit michael reference range : <=5.0. The refe rence range was not u sed to interpret th is result as normal/abnormal . TRIG (test code = 57 mg/dL 30-170 4818906640) LDL CHOL (test code = 132 mg/dL See_Comment [Auto mated message] 15409-1) The system [employer] generated this result transmit michael reference range : <=160. The refe rence range was not u sed to interpret th is result as normal/abnormal . VLDL (test code = 11 mg/dL 5-60 6996447856) Lab Interpretation (test Abnormal code = 65643-7) NPI:[id number] 15:21:56 Test Item Value Reference Range Interpretation Comments MAGNESIUM (test code = 2829098721) 1.6 mg/dL 1.7-2.4 L Lab Interpretation (test code = Abnormal 77377-6) NPI:[id number] 15:21:36 Test Item Value Reference Range Interpretation Comments PHOSPHORUS (test code = 3563500152) 3.1 mg/dL 2.5-5.0 Lab Interpretation (test code = Normal 18002-8) NPI:[id number] 15:21:16 Test Item Value Reference Range Interpretation Comments URIC ACID (test code = 5487252844) 4.4 mg/dL 3.6-8.0 Lab Interpretation (test code = Normal 85770-5) NPI:[id number] [id number] 13:34:13 Test Item Value Reference Interpretation Comments Range TROPONIN I (test 0.038 ng/mL See_Comment H [Automated code = 4745773366) message] The system which generated this result [...] biotin. Lab Interpretation Abnormal (test code = 90841-3) NPI:[id number] [id number] 11:19:15 Test Item Value Reference Range Interpretation Comments ESR (test code = See_Comment [Automated message] 9493934855) The system [employer] generated this result transmitted ref erence range: 0 - 10 m m/HR. The reference r laura was not used to interpret this result as normal/abnor mal. Lab Interpretation (test Normal code = 44871-6) NPI:[id number] [id number] 10:43:39 Test Item Value Reference Interpretation Comments Range TROPONIN I (test 0.037 ng/mL See_Comment H Hemolyzed code = 2881168862) specimen [Automated message] The system which generated [...] biotin. Lab Interpretation Abnormal (test code = 41254-1) NPI:[id number] HEMOGLOBIN (A1C)2021-11-04 09:01:59 Test Item Value Reference Range Interpretation Comments HGB A1C (test code = 6.0 % 4.0-5.7 H 4548-4) TIFFANY (test code = TIFFANY) Reference RangesNormal: <5.7%Prediabetes: 5.7 - 6.4%Diabetes: > 6.5% Lab Interpretation (test Abnormal code = 17622-4) NPI:[id number] 03:17:54 Test Item Value Reference Interpretation Comments Range TROPONIN I (test 0.035 ng/mL See_Comment H [Automated code = [id number]) message] The system which generated this result [...] biotin. Lab Interpretation Abnormal (test code = 49861-3) NPI:[id number]. METABOLIC PANEL (14286)2021-11-04 03:06:14 Test Item Value Reference Range Interpretation Comments NA (test code = 136 mmol/L 135-145 [id number]) K (test code = 4.4 mmol/L 3.5-5.0 4977545029) CL (test code = 99 mmol/L 98-108 2648983271) CO2 TOTAL (test code = 29 mmol/L 23-31 7197815124) AGAP (test code = 2-16 6291242429) BUN (test code = 22 mg/dL 7-23 3179490664) GLUCOSE (test code = 164 mg/dL 70-110 H [id number]) CREATININE (test code = 0.72 mg/dL 0.60-1.25 8944719595) TOTAL BILI (test code = 1.8 mg/dL 0.1-1.1 H 6835561575) CALCIUM (test code = 9.3 mg/dL 8.6-10.6 7575988823) T PROTEIN (test code = 7.5 g/dL 6.3-8.2 8207632907) ALBUMIN (test code = 3.7 g/dL 3.5-5.0 [id number]) ALK PHOS (test code = 98 U/L 34-122 [id number]) ALTv (test code = 35 U/L 5-50 1742-6) AST(SGOT) (test code = 48 U/L 13-40 H 0776105408) eGFR (test code = mL/min/1.73m2 4547763665) TIFFANY (test code = TIFFANY) Association of [...] tests). Lab Interpretation Abnormal (test code = 57831-5) NPI:[id number], [id number] 03:05:54 Test Item Value Reference Range Interpretation Comments LIPASE (test code = 3875379471) 253 U/L 0-220 H Lab Interpretation (test code = Abnormal 24605-3) NPI:[id number] 03:03:13 Test Item Value Reference Range Interpretation Comments APTT Patient (test See_Comment [Automat ed code = 3173-2) message] The system which generated this result transmitted reference range : 23 - 38 Seconds . The reference range was not used to interpr et this result as normal/abnormal . TIFFANY (test code = TIFFANY) The [facility] patient population mean normal value for aPTT is 30 seconds. Lab Interpretation Normal (test code = 02506-3) NPI:[id number] TIME / [id number] 03:01:34 Test Item Value Reference Range Interpretation [...] tions. Lab Interpretation (test Abnormal code = 51848-3) NPI:[id number] WITH [id number] 02:55:12 Test Item Value Reference Range Interpretation [...] RDW-SD (test code = 50.4 fL 38.5-51.6 69130-3) RDW-CV (test code = 14.8 % 12.1-15.4 788-0) PLT (test code = See_Comment L [Automated 777-3) message] The sy stem which generated this result transmitted reference range : 150 - 328 10*3/ ?L. The reference r laura was not used to interpret this result as normal/abnormal . MPV (test code = 10.3 fL 9.8-13.0 23734-0) NRBC/100 WBC (test See_Comment [Automat ed code = 9765779746) message] The system which generated this result transmitted reference range : 0.0 - 10.0 /100 WBCs. The refer ence range was not u sed to interpret th is result as normal/abnormal . NRBC x10^3 (test code <0.01 See_Comment [Auto mated = 9634724845) message] The s ystem which generated this result transmitted reference range : 10*3/?L. The reference range was not used to interpret this result as normal/abnormal . GRAN MAT (NEUT) % 72.3 % (test code = 770-8) IMM GRAN % (test code 1.70 % = 6153982428) LYMPH % (test code = 16.5 % 736-9) MONO % (test code = 8.2 % 5905-5) EOS % (test code = 1.0 % 713-8) BASO % (test code = 0.3 % 706-2) GRAN MAT x10^3(ANC) 7.35 10*3/uL 1.99-6.95 H (test code = 0473235024) IMM GRAN x10^3 (test 0.17 10*3/uL 0.00-0.06 H code = 2022709968) LYMPH x10^3 (test code 1.67 10*3/uL 1.09-3.23 = 731-0) MONO x10^3 (test code 0.83 10*3/uL 0.36-1.02 = 742-7) EOS x10^3 (test code = 0.10 10*3/uL 0.06-0.53 711-2) BASO x10^3 (test code 0.03 10*3/uL 0.01-0.09 = 704-7) Lab Interpretation Abnormal (test code = 45594-8)
[2021-12-07] MEDS ORDERED: MAGNES/ALUMIN/SIMET 30ML UCUP ONE (22:45)
[2021-12-07] MEDS ORDERED: ASPIRIN 81 MG CHEWABLE TABLET ONE (22:46)
[2021-12-07] MEDS ORDERED: FAMOTIDINE 20 MG/2 ML VIAL IV ONE (22:46)
[2021-12-07] MEDS ORDERED: LIDOCAINE VISCOUS 2% SOLN 15 ML UDC ONE (22:46)
[2021-12-07 23:40] LABS: Absolute Lymphocytes (CBC) 0.8 K/uL (0.7-4.9); Hematocrit 37.8 % (39.6-49.0); Lymphocytes % 15.3 % (15.3-44.8); MPV 7.6 fL (7.6-11.3); RBC Red Blood Cell Count 3.95 M/uL (4.33-5.43)
[2021-12-08 00:05] LABS: Albumin 2.7 g/dL (3.4-5.0); Bilirubin Direct 0.4 mg/dL (0-0.2); Magnesium 1.8 mg/dL (1.8-2.4); Potassium 4.2 mmol/L (3.5-5.1); Protein, Total 5.8 g/dL (6.4-8.2); Troponin High Sensitivity 20.9 pg/mL (<58.9)
[2021-12-08 00:20] LABS: Blood Morphology Comment NOT SEEN (NOT SEEN); Platelet Estimate DECR; White Blood Cell Scan OK (OK)
[2021-12-08] MEDS ORDERED: ONDANSETRON 4 MG/2 ML VIAL ONE (00:37)
[2021-12-08] MEDS ORDERED: MORPHINE 4 MG/ML SYR ONE (00:37)
[2021-12-08] MEDS ORDERED: FUROSEMIDE 20 MG/ 2ML VIAL ONE (01:34)
[2021-12-08] MEDS ORDERED: KETOROLAC 30 MG/ML INJ ONE (01:34)
--- NOTE | 2021-12-08 02:06 | EDPHYS ---
Physician Documentation [facility] Name: Joseph Quach Age: 61 yrs Sex: Male : 1960 Arrival Date: 12/07/2021 Time: 22:13 Bed 16 Private MD: ED Physician Pee Bowers HPI: 12/07 22:35 This 61 yrs old Male presents to ER via Ambulatory with complaints of Chest Pain. jh7 22:35 Onset: The symptoms/episode began/occurred "for weeks and weeks". Associated signs and jh7 symptoms: Pertinent positives: cough, Pertinent negatives: constipation, diarrhea, fever, shortness of breath, vomiting, wheezing. Patient presents complaining of chest pain for several weeks. States that pain is significantly worsened by a cough. States that he is coughing up yellow mucus. Denies fever, shortness of breath, wheezing, dizziness, or any other symptoms. He had a heart cath 2 weeks ago that was normal.. Historical: - Allergies: 22:35 Fish Containing Products; ke1 - PMHx: 22:35 angina pectoris; cirrhosis of liver; COPD; High Cholesterol; Hypertensive disorder; ke1 Myocardial infarction; - Immunization history:: Pneumococcal vaccine is up to date. - Social history:: Smoking status: Patient reports the use of cigarette tobacco products, smokes one-half pack cigarettes per day, Patient/guardian denies using tobacco, Stopped _ months ago 2. ROS: 12/08 01:50 Constitutional: Negative for fever, chills, and weight loss. jh7 Neck: Negative for injury, pain, and swelling, Abdomen/GI: Negative for abdominal pain, nausea, vomiting, diarrhea, and constipation, Back: Negative for injury and pain, Skin: Negative for injury, rash, and discoloration, Neuro: Negative for headache, weakness, numbness, tingling, and seizure. Cardiovascular: Positive for chest pain, with cough, Negative for palpitations. Respiratory: Positive for cough, with yellow sputum, Negative for orthopnea, shortness of breath, wheezing. All other systems are negative. Exam: 01:50 Constitutional: This is a well developed, well nourished patient who is awake, alert, jh7 and in no acute distress. Cardiovascular: Regular rate and rhythm with a normal S1 and S2. No gallops, murmurs, or rubs. Normal PMI, no JVD. No pulse deficits. Respiratory: Lungs have equal breath sounds bilaterally, clear to auscultation and percussion. No rales, rhonchi or wheezes noted. No increased work of breathing, no retractions or nasal flaring. Abdomen/GI: Soft, non-tender, with normal bowel sounds. Protuberant abdomen. No guarding or rebound. No evidence of tenderness throughout. Skin: Warm, dry with normal turgor. Normal color with no rashes, no lesions, and no evidence of cellulitis. Neuro: Awake and alert, GCS 15, oriented to person, place, time, and situation. 01:50 Musculoskeletal/extremity: bilateral pitting edema in LLE. Vital Signs: 12/07 22:31 BP 173 / 95; Pulse 113; Resp 22; Temp 98.2(O); Pulse Ox 92% on R/A; ke1 12/08 02:43 BP 155 / 86; Pulse 96; Resp 18; Pulse Ox 93% on R/A; ke1 MDM: 12/07 22:23 Patient medically screened. [facility] 22:35 Differential diagnosis: viral Infection, bacterial infection, Acute DE. Data [facility] interpreted: Pulse oximetry: is 93 %. Interpretation: acceptable. Counseling: I had a detailed discussion with the patient and/or guardian regarding: the historical points, exam findings, and any diagnostic results supporting the discharge/admit diagnosis, lab results, radiology results. 12/08 02:11 Data reviewed: vital signs, nurses notes, lab test result(s), EKG, radiologic studies, [facility] plain films. Counseling: I had a detailed discussion with the patient and/or guardian regarding: to return to the emergency department if symptoms worsen or persist or if there are any questions or concerns that arise at home. Special discussion: I discussed with the patient/guardian in detail that at this point there is no indication for admission to the hospital. It is understood, however, that if the symptoms persist or worsen the patient needs to return immediately for re-evaluation. ED course: The patient's pain somewhat improved after medication therapy. He remained hemodynamically stable throughout the ER visit. He continued to stressed that the pain was worse when he coughed, and that his cough has been keeping him awake all night for 2 weeks. Requested a cough syrup. Advised for him to follow-up with his PCP. If his symptoms return or he experiences any new concerning symptoms, he should return to the ER for further eval. The patient understood the plan of care.. 12/07 22:31 Order name: Basic Metabolic Panel; Complete Time: 00:25 [facility] 12/07 22:31 Order name: CBC with Diff; Complete Time: 00:25 [facility] 12/07 22:31 Order name: LFT's; Complete Time: 00:25 [facility] 12/07 22:31 Order name: Magnesium; Complete Time: 00:25 [facility] 12/07 22:31 Order name: NT PRO-BNP; Complete Time: 00:25 [facility] 12/07 22:31 Order name: Troponin HS; Complete Time: 00:25 [facility] 12/07 22:31 Order name: XRAY Chest (1 view) [facility] 12/07 23:42 Order name: CBC Smear Scan; Complete Time: 00:25 [facility] 12/07 22:31 Order name: EKG; Complete Time: 22:32 [facility] 12/07 22:31 Order name: Cardiac monitoring; Complete Time: 22:44 [facility] 12/07 22:31 Order name: EKG - Nurse/Tech; Complete Time: 22:44 [facility] 12/07 22:31 Order name: IV Saline Lock; Complete Time: 23:09 [facility] 12/07 22:31 Order name: Labs collected and sent; Complete Time: 23:15 [facility] 12/07 22:31 Order name: O2 Per Protocol; Complete Time: 22:44 [facility] 12/07 22:31 Order name: O2 Sat Monitoring; Complete Time: 22:45 [facility] EC/09 22:35 Rate is 114 beats/min. Rhythm is regular. QRS [place] is Normal. MS interval is normal. [facility] QRS interval is normal. T waves are Normal. No ST changes noted. Clinical impression: Sinus tachycardia. Administered Medications: 22:44 Drug: Aspirin Chewable Tablet 324 mg Route: PO; 12/08 02:42 Follow up: Response: No adverse reaction 12/07 22:44 Drug: GI Cocktail without - (Maalox Suspension 30 ml, Lidocaine Liquid 2 % 15 ke1 ml) Route: PO; 23:00 Follow up: Response: Pain is unchanged, physician notified 23:08 Drug: Pepcid (famotidine) 20 mg Route: IVP; Site: left hand; ke1 23:30 Follow up: Response: No change in condition 12/08 00:35 Drug: Zofran (Ondansetron) 4 mg Route: IVP; Site: left hand; bb 01:00 Follow up: Response: Marked relief of symptoms ke1 00:40 Drug: morphine 4 mg {Note: RASS 0.} Route: IVP; Site: left hand; bb 01:00 Follow up: Response: No change in condition; Pain is unchanged, physician notified ke1 01:35 Drug: Lasix (furosemide) 20 mg Route: IVP; Site: left hand; ke1 02:38 Follow up: Response: No adverse reaction 01:35 Drug: Ketorolac 15 mg Route: IVP; Site: left hand; ke1 02:38 Follow up: Response: Marked relief of symptoms; Pain is decreased ke Disposition: 05:18 Co-signature as Attending Physician, Pee Bowers MD. rn Disposition Summary: 12/08/21 02:05 Discharge Ordered Location: Home [facility] Problem: an ongoing problem [facility] Symptoms: have improved [facility] Condition: Stable [facility] Diagnosis - Chest pain, unspecified [facility] - Cough [facility] Followup: [facility] - With: Private Physician - When: 2 - 3 days - Reason: Recheck today's complaints Discharge Instructions: - Discharge Summary Sheet [facility] Forms: - Medication Reconciliation Form [facility] - Thank You Letter [facility] - Antibiotic Education [facility] - Prescription Opioid Use [facility] Prescriptions: - promethazine 6.25 mg/5 mL Oral Syrup - take 10 milliliters by ORAL route every 6 hours As needed; 200 milliliter; [facility] Refills: 0, Product Selection Permitted Signatures: Dispatcher [employer] Genie Zuluaga RN RN bb Nieto, Roman, MD MD rn Ebrottie, Kouassi, RN RN Toshia Corrales FNP FNP [facility] Corrections: (The following items were deleted from the chart) 12/07 22:36 22:35 PSHx: hernia repair -1960; ke1 12/08 01:53 01:47 Onset: The symptoms/episode began/occurred "for weeks and weeks", [place] [phone] 01:47 Associated signs and symptoms: Pertinent positives: cough, Pertinent negatives: jh7 constipation, diarrhea, fever, shortness of breath, vomiting, wheezing, jh7 01:53 01:47 Patient presents complaining of chest pain for several weeks. States that pain is jh7 significantly worsened by a cough. States that he is coughing up yellow mucus. Denies fever, shortness of breath, wheezing, dizziness, or any other symptoms. He had a heart cath 2 weeks ago that was normal.. jh7 01:53 01:47 This 61 yrs old Male presents to ER via Ambulatory with complaints of Chest Pain. jh7 jh7
--- NOTE | 2021-12-08 02:06 | ER ---
Nurse's Notes [facility] Name: Joseph Quach Age: 61 yrs Sex: Male : 1960 Arrival Date: 12/07/2021 Time: 22:13 Bed 16 Private MD: Diagnosis: Chest pain, unspecified;Cough Presentation: 12/07 22:31 Chief complaint: Patient states: Chest pain for 6 weeks that is getting worse. ke1 Coronavirus screen: Vaccine status: Patient reports being unvaccinated. Ebola Screen: No symptoms or risks identified at this time. Initial Sepsis Screen: Does the patient meet any 2 criteria? No. Patient's initial sepsis screen is negative. Does the patient have a suspected source of infection? No. Patient's initial sepsis screen is negative. Risk Assessment: Do you want to hurt yourself or someone else? Patient reports no desire to harm self or others. Onset of symptoms is unknown. 22:31 Method Of Arrival: Ambulatory [facility] 22:31 Acuity: AISLINN 3 ke1 Triage Assessment: 22:36 General: Appears uncomfortable, Behavior is anxious. Pain: Complains of pain in chest ke1 Pain currently is 10 out of 10 on a pain scale. Historical: - Allergies: 22:35 Fish Containing Products; ke1 - PMHx: 22:35 angina pectoris; cirrhosis of liver; COPD; High Cholesterol; Hypertensive disorder; ke1 Myocardial infarction; - Immunization history:: Pneumococcal vaccine is up to date. - Social history:: Smoking status: Patient reports the use of cigarette tobacco products, smokes one-half pack cigarettes per day, Patient/guardian denies using tobacco, Stopped _ months ago 2. Screenin:01 Abuse screen: Denies threats or abuse. Nutritional screening: No deficits noted. ke1 Tuberculosis screening: No symptoms or risk factors identified. Fall Risk No fall in past 12 months (0 pts). No secondary diagnosis (0 pts). IV access (20 points). Ambulatory Aid- None/Bed Rest/Nurse Assist (0 pts). Gait- Normal/Bed Rest/Wheelchair (0 pts) Mental Status- Oriented to own ability (0 pts). Assessment: 22:30 General: Appears uncomfortable, Behavior is anxious. Pain: Complains of pain in chest ke1 Pain does not radiate. Pain currently is 10 out of 10 on a pain scale. at worst was 10 out of 10 on a pain scale. level that patient reports is acceptable is 4 out of 10 on a pain scale. Quality of pain is described as burning, Pain began 6 weeks ago. Cardiovascular: Reports chest pain, Heart tones S1 S2 Capillary refill < 3 seconds Rhythm is sinus tachycardia. Respiratory: Respiratory effort is even, unlabored, Breath sounds are diminished bilaterally. GI: Abdomen is distended, obese. : No deficits noted. Musculoskeletal: Range of motion: intact in all extremities. 23:02 Reassessment: IV inserted, no good blood return to draw lab, research lab assistant called to draw. ke1 23:26 Reassessment: lab here to draw blood. ke1 12/08 00:30 Reassessment: No changes from previously documented assessment. ke1 01:30 Reassessment: No changes from previously documented assessment. ke1 02:40 Reassessment: Patient states feeling better. Patient states symptoms have improved. ke1 Vital Signs: 12/07 22:31 BP 173 / 95; Pulse 113; Resp 22; Temp 98.2(O); Pulse Ox 92% on R/A; ke1 12/08 02:43 BP 155 / 86; Pulse 96; Resp 18; Pulse Ox 93% on R/A; ke1 ED Course: 12/07 22:13 Patient arrived in ED. ag3 22:22 Toshia Frey FNP is [facility]. jh7 22:22 Pee Bowers MD is Attending Physician. jh7 22:30 No provider procedures requiring assistance completed. Patient maintains SpO2 ke1 saturation greater than 95% on room air. 22:31 Carlos A Alcantara, RN is Primary Nurse. ke1 22:35 Triage completed. ke1 22:55 XRAY Chest (1 view) In Process Unspecified. EDMS 23:00 Inserted saline lock: 22 gauge in left hand, using aseptic technique. ke1 12/08 00:00 Arm band placed on left wrist. ke1 00:00 traffic monitor specialist on. Pulse ox on. NIBP on. ke1 02:41 Bed in low position. Call light in reach. ke1 02:42 IV discontinued. ke1 Administered Medications: 12/07 22:44 Drug: Aspirin Chewable Tablet 324 mg Route: PO; ke1 12/08 02:42 Follow up: Response: No adverse reaction ke1 12/07 22:44 Drug: GI Cocktail without - (Maalox Suspension 30 ml, Lidocaine Liquid 2 % 15 ke1 ml) Route: PO; 23:00 Follow up: Response: Pain is unchanged, physician notified ke1 23:08 Drug: Pepcid (famotidine) 20 mg Route: IVP; Site: left hand; ke1 23:30 Follow up: Response: No change in condition ke1 12/08 00:35 Drug: Zofran (Ondansetron) 4 mg Route: IVP; Site: left hand; bb 01:00 Follow up: Response: Marked relief of symptoms ke1 00:40 Drug: morphine 4 mg {Note: RASS 0.} Route: IVP; Site: left hand; bb 01:00 Follow up: Response: No change in condition; Pain is unchanged, physician notified ke1 01:35 Drug: Lasix (furosemide) 20 mg Route: IVP; Site: left hand; ke1 02:38 Follow up: Response: No adverse reaction ke1 01:35 Drug: Ketorolac 15 mg Route: IVP; Site: left hand; ke1 02:38 Follow up: Response: Marked relief of symptoms; Pain is decreased ke1 Outcome: 00:00 Discharged to home ambulatory. ke1 00:00 Condition: good 00:00 Discharge instructions given to patient. 02:05 Discharge ordered by MD. [place] 02:43 Patient left the ED. ke1 Signatures: Dispatcher [employer] EDGenie López RN RN bb Gomez, Alice Carlos A Lyle RN RN ke1 Toshia Frey FNP FNP 7 Corrections: (The following items were deleted from the chart) 12/07 22:36 22:35 PSHx: hernia repair -1961; ke1 ke1
[2021-12-08 04:03] VITALS: TEMP 98.2
[2021-12-08 04:08] VITALS: BP 155/86; O2SAT 93
--- NOTE | 2021-12-08 10:19 | EKG ---
Test Date: 2021-12-07 Test Time: 22:30:23 Story Writer: CARLIE MEASUREMENT RESULTS: Intervals: Rate: 114 OH: 138 QRSD: 82 QT: 320 QTc: 441 [place]: P: 76 OH: 138 QRS: 66 T: 66 INTERPRETIVE STATEMENTS: Sinus tachycardia Otherwise normal ECG Compared to ECG 12/05/2021 15:25:47 Sinus rhythm no longer present Electronically Signed On 12-08-21 10:17:26 CDT by Manuel Joya
--- NOTE | 2021-12-08 12:08 | RAD REPORT ---
EXAM DESCRIPTION: RAD - Chest Single View - 12/07/2021 10:54 pm CLINICAL HISTORY: 61 years Male CHEST PAIN TECHNIQUE: One view of the chest is compared to the prior dated 11/26/2021. FINDINGS: Again seen is bibasilar atelectasis. Difficult to exclude a focal infiltrate and trace ple ural effusion at the left lung base. No pneumothorax. Stable cardiomediastinal silhouette. IMPRESSION: Difficult to exclude a focal left basilar airspace infiltrate and trace left pleural eff usion. Electronically signed by: Shellie Bey MD 12/07/2021 11:24 PM CDT Due to temporary technical issues with the PACS/Fluency reporting system, reports are being signed by the in house radiologists without review as a courtesy to insure prompt reporting. The interpreting radiologist is fully responsible for the content of the report.
== END 2021-12-08 02:43 | disposition home or self-care (01) ==
LOC: ER 22:09
DX: R07.9 Chest pain, unspecified (principal); R05.9 Cough, unspecified; I10 Essential (primary) hypertension; I25.2 Old myocardial infarction; K74.60 Unspecified cirrhosis of liver; F17.210 Nicotine dependence, cigarettes, uncomplicated; Z91.013 Allergy to seafood
CPT/HCPCS: 93005; 85025; 80048; 36415; 83735; 80076; 84484; 83880; 71045; 96375; 96374; 99285; J1940; J2405; J3490

== ENCOUNTER 2021-12-09 21:53 | Emergency (ER) | payer OTHER ==
--- OUTSIDE RECORDS SUMMARY | 2021-12-09 21:57 | XMS REPORT | Continuity of Care Document ---
:1960 Author Organization [facility] t Address [address] [place] [address] Care Team Providers Name Role Phone PHONG Primary Care Physician Unavailable Stuart STORY Attending Clinician Unavailable PONCHO Attending Clinician Unavailable Oren PAC, S Attending Clinician America STEELE Attending Clinician Poncho STEELE Attending Clinician PONCHO Admitting Clinician Unavailable Poncho STEELE Admitting Clinician Payers Payer Name Policy Type Policy Number Effective Date Expiration Date S ource [place]ID [place] [id number] 2020 00:00:00 Problems Condition Condition Condition Status Onset Resolution Last Treating Co mments Source Name Details Category Date Date Treatment Clinician Date COPD with COPD with Disease Active Uni vers acute acute 4-07 [place] Obesity Obesity Disease Active Univers (BMI (BMI 4-06 ity of 30-39.9) 30-39.9) 00:00: [address] COPD COPD Disease Active Univers exacerbati exacerbati 4-06 it y of on on 00:: [address] Troponin I Troponin I Disease Active U nivers above above 4-06 [place] 00 [facility] Cigarette Cigarette Disease Active Uni vers smoker smoker 4-06 ity of 00:00: [place] 00 [facility] Chest pain Chest pain Disease Active U nivers 4-05 ity of 00:00: [place] 00 [facility] Allergies, Adverse Reactions, Alerts Allergy Allergy Status Severity Reaction(s) Onset Inactive Treating Comm ents Source Name Type Date Date Clinician Seafood/ Propensi Active Rash 2018-08 Univer s Fish ty to 2-17 ity of adverse 00:00: [place] reaction 00 [facility] SEAFOOD/ Food Active Rash 2018-08 Univers FISH 2-17 ity of 00:00: [place] 00 [facility] Social History Social Habit Start Date Stop Date Quantity Comments Source Exposure to Not sure [facility] SARS-CoV-2 [facility] (event) [place] Alcohol intake 2021-11-04 2021-11-04 Ex-drinker [facility] 00:00:00 00:00:00 (finding) [facility] Education 2021-11-04 2021-11-04 9 University of 00:00:00 00:00:00 [facility] Tobacco use and 2019-05-29 2019-05-29 Current user Univers ity of exposure 00:00:00 00:00:00 [facility] History of 2017-05-29 Smoker University of tobacco use 00:00:00 [facility] Sex [birth year] Universit y of 00:00:00 00:00:00 [facility] Smoking Status Start Date Stop Date Source Former smoker 2019-05-29 00:00:00 2019-05-29 00:00:00 Universi ty of [facility] Medications Ordered Filled Start Stop Current Ordering Indication Dosage Frequency Signature Comments Components Source Medication Medication Date Date Medication? Clinician (SIG) Name Name carol 2021- Yes 500mg 500 mg, U nivers n 4-08 04-09 Oral, ity of (ZITHROMAX) 13:00: 00:59 [place] :00 dose, On Medic al mg 11/06/21 Branch at 0800, Routine
Reason for Anti-Infec tive: Empiric Therapy for Suspected Infection< br>Empiric Therapy Site: Respirator y
Durat ion of therapy: 72 hours aspirin 2021- Yes [id number] 325mg Take 1 U nivers E.C. 325 mg 11-06 05-09 tablet by it y of EC tablet 00:00: 04:59 mouth [place] 00 :00 daily with Medical breakfast [place] for 30 days. cholecalcif 2021- Yes [id number] 2000U Take 2 Univers tere, 11-06 05-09 tablets by ity of vitamin D3, 00:00: 04:[place] 25 m[place] 00 :00 daily for Medical (1,000 30 days. Branch unit) tablet metoprolol 2021- Yes [id number] 25mg Take 1 Univers succinate 11-06 05-09 tablet by ity of XL 25 mg 24 00:00: 04:59 [place] hr tablet 00 :00 daily for Medic al 30 days. Branch aspirin 2021- Yes [id number] 325mg Take 1 U nivers E.C. 325 mg 11-06-09 tablet by it y of EC tablet 00:00: 04:59 mouth [place] 00 :00 daily with Medical breakfast [place] for 30 days. cholecalcif 2021- Yes [id number] 2000U Take 2 Univers tere, 11-06 05-09 tablets by ity of vitamin D3, 00:00: 04:59 [place] 25 mcg 00 :00 daily for Medical (1,000 30 days. Branch unit) tablet metoprolol 2021- Yes [id number] 25mg Take 1 Univers succinate 11-06-09 tablet by ity of XL 25 mg 24 00:00: 04:59 [place] hr tablet 00 :00 daily for Medic al 30 days. Branch predniSONE 2021- Yes [id number] 50mg Take 1 Univers 50 mg 4 04-12 tablet by ity of tablet 00:00: 04:59 mouth [place] 00 :00 every day Medical at 1200 Branch (noon) for 3 days. predniSONE 2021- Yes [id number] 50mg Take 1 Univers 50 mg -03 04-12 tablet by ity of tablet 00:00: 04:59 mouth [place] 00 :00 every day Medical at 1200 Branch (noon) for 3 days. mometasone/ 0 Yes Inhale. Uni vers formoterol 4-07 ity of (DULERA 18:48: [place] INHALE) 11 Medical Branch mometasone/ 0 Yes Inhale. Uni vers formoterol 4-07 ity of (DULERA 18:48: [place] INHALE) 11 Medical Branch cholecalcif 0 Yes 2000U 2,000 [facility] ers tere 4-07 Units, ity of (vitamin 15:00: Oral, [place] D3) tablet 00 DAILY, Medical 2,000 Units First dose Br anch on [place] 11/05/21 at 1000, Until Discontinu ed, Routine gabapentin 2021- No 300mg Take 300 U nivers 300 mg 11-05-07 mg by ity of capsule 14:03: 00:00 mouth 2 [place] 31 :00 (two) Medical times Branch daily. Unsure on dose ALBUTEROL 2021- No Inhale. [facility] ers INHALE 11-05 04-07 ity of 14:03: 00:00 [place] 31 :00 Medical Branch albuterol Yes [id number] 2{puff} Inhale 2 Univers 90 4-07 Puffs ity of mcg/actuati 00:00: every 6 [place] on inhaler 00 (six) Medical hours as Branch needed for Wheezing or Shortness of Breath. Budesonide Yes [id number] 1{puff} Inhale 1 Univers 90 4-07 Puff every ity of mcg/actuati 00:00: morning [place] on aerosol 00 and Medical powder evening. Branch HYDROcodone Yes [id number] 1{tbl} Take 1 Un [place] -acetaminop -07 tablet by ity of hen 5-325 00:00: mouth [place] mg tablet 00 every 6 Medical (six) Branch hours as needed for Pain (scale 4-6). Indication s: acute pain albuterol Yes [id number] 2{puff} Inhale 2 Univers 90 4-07 Puffs ity of mcg/actuati 00:00: every 6 [place] on inhaler 00 (six) Medical hours as Branch needed for Wheezing or Shortness of Breath. Budesonide Yes [id number] 1{puff} Inhale 1 Univers 90 4-07 Puff [...] Indication s: acute pain gabapentin 2021- Yes [id number] 300mg Take 1 Univers 300 mg 11-05-08 capsule by ity of capsule 00:00: 04:59 mouth 2 [place] 00 :00 (two) Medical times Branch daily for 30 days. gabapentin 2021- Yes [id number] 300mg Take 1 Univers 300 mg 11-05-08 capsule by ity of capsule 00:00: 04:59 mouth 2 [place] 00 :00 (two) Medical times Branch daily for 30 days. azithromyci 2021- Yes [id number] 500mg Take 1 Univers n 500 mg 11-05-10 tablet by ity o f tablet 00:00: 04:59 mouth [place] 00 :00 daily for Medical 2 doses. Branch azithromyci 2021- Yes [id number] 500mg Take 1 Univers n 500 mg 11-05-10 tablet by ity o f tablet 00:00: 04:59 mouth [place] 00 :00 daily for Medical 2 doses. [place] enoxaparin Yes 30mg 30 mg, Unive rs (LOVENOX) 11-04 Subcutaneo ity of injection 22:00: [place]ILY[place] mg 00 First dose Medical on Tue11/04/21 at 1700, Until Discontinu ed, Routine sulfur 2021- No [id number] 5mL 5 mL, Univ ers hexafluorid 11-04-06 Intravenou i ty of e microsphr 17:45: 17:45 s, ONCE, 1 [place] (LUMASON) 00 :00 dose, On Medica l injection 5 Tue11/04/21 Br anch mL at 1245, Routine
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 Restricted medication : ERIC ARANA predniSONE Yes 50mg 50 mg, Unive rs (DELTASONE) 11-04 Oral, ity of tablet 50 17:00: QNOON, [place] mg 00 First dose Medical on Tue Branch 11/04/21 at 1200, Until Discontinu ed, Routine morpHINE No 2mg 2 mg, Slow Un [place] injection 2 11-04 04-06 IV Push, ity of mg 16:15: 15:22 ONCE, 1 [place] 00 :00 dose, On Medical Tue11/04/21 Branch at 1115, Routine HYDROcodone 0 Yes 1{tbl} 1 tablet, Univers -acetaminop 11-04 Oral, ity of hen (NORCO 15:06: Q6HPRN, [place] 5) 5-325 mg 46 Starting Medi reynaldo tablet 1 on Tue Branch tablet 11/04/21 at 1006, Until Discontinu ed, Routine, Pain (scale 4-6) metoprolol Yes 25mg 25 mg, Unive rs succinate 11-04 Oral, ity of XL (TOPROL 14:00: DAILY, [place] XL) tablet 00 First dose Med ical [...] Yes 325mg 325 mg, Univer s E.C. 4 Oral, QAM ity of (ECOTRIN) 08:30: WITH [place] tablet 325 00 BREAKFAST, Med ical mg First dose Branch on Tue11/04/21 at 0330, Until Discontinu ed, Routine budesonide Yes .5mg 0.5 mg, Univ ers (PULMICORT -06 Inhalation ity of RESPULE) 08:00: , BID, [place] nebulizer 00 First dose Medi reynaldo solution on Tue Branch 0.5 mg 11/04/21 at 0300, Until Discontinu ed, Routine ipratropium 2021-0 Yes 3mL 3 mL, Unive rs -albuteroL 11-04 Inhalation ity of (DUONEB) 08:00: , Q4H, [place] 0.5 mg-3 00 First dose Medic al mg(2.5 mg (after Branch base)/3 mL last nebulizer reorder) solution 3 on Tue mL 11/04/21 at 0300, Until Discontinu ed, Routine gabapentin 2021-0 Yes 300mg 300 mg, Uni vers (NEURONTIN) 406 Oral, BID, it y of capsule 300 08:00: First dose [place] mg 00 on Tue Medical 11/04/21 at Branch 0300, Until Discontinu ed, Routine docusate 2021-0 Yes 100mg 100 mg, Unive rs (COLACE) 06 Oral, BID, ity o f capsule 100 08:00: First dose [place] mg 00 on Tue Medical 11/04/21 at Branch 0300, Until Discontinu ed, Routine ondansetron 0 Yes 4mg 4 mg, Slow Univers (ZOFRAN 11-04 IV Push, ity of (PF)) 07:56: Q6HPRN, [place] injection 4 12 Starting Medi reynaldo mg on Tue Branch 11/04/21 at 0256, Until Discontinu ed, Routine, Nausea and Vomiting (N/V) ipratropium 0 2021- No 3mL 3 mL, Univ ers -albuteroL 11-04 04-06 Inhalation it y of (DUONEB) 04:45: 03:59 , ONCE, 1 [place] 0.5 mg-3 00 :00 dose, On Medical mg(2.5 mg Tue11/03/21 Bran ch base)/3 mL at 2345, nebulizer Routine solution 3 mL methylpredn 2021- No 125mg 125 mg, IV Univers isolone sod 11-04 04-06 Piggyback, i ty of succ 04:45: 04:59 ONCE, 1 [place] (SOLU-MEDRO 00 :00 dose, On Medi reynaldo L) essence 11/03/21 Branch injection at 2345, 125 mg LARRY Vital Signs Vital Name Observation Time Observation Value Comments Source Oxygen saturation in 2021-11-05 21:30:00 93 /min [facility] Arterial blood by [facility] Pulse oximetry Branch Respiratory rate 2021-11-05 21:30:00 20 /min [facility] Systolic blood 2021-11-05 16:16:00 116 mm[Hg] [facility] Diastolic blood 2021-11-05 16:16:00 71 mm[Hg] [facility] Heart rate 2021-11-05 16:16:00 95 /min [facility] Body temperature 2021-11-05 16:16:00 36.28 Lesley [facility] Body weight 2021-11-05 09:32:00 100.971 kg [facility] BMI 2021-11-05 09:32:00 31.05 kg/m2 [facility] Body height 2021-11-04 17:37:00 180.3 cm [facility] Procedures Procedure Date / Time Performing Clinician Source Performed MAGNESIUM 2021-11-05 16:31:00 Nader Cross [facility] COMP. METABOLIC PANEL 2021-11-05 16:31:00 Nader Cross [facility] ([id number]) [facility] LIPID PANEL ([id number])(TOTAL 2021-11-05 16:31:00 Jorge Fern[facility]dez [facility] CHOLESTEROL, [facility] TRIGLYCERIDES, HDL) TROPONIN I 2021-11-05 09:50:00 Nader Cross [facility] FREE T4 2021-11-05 09:50:00 Jorge Fernández [facility] THYROID STIMULATING 2021-11-05 09:50:00 Jorge Fernández [facility] HORMONE [facility] N-TERMINAL PRO-BNP 2021-11-05 09:50:00 Nader Cross [facility] TROPONIN I 2021-11-04 23:44:00 Nader Cross [facility] TRANSTHORACIC ECHO (TTE) 2021-11-04 17:37:10 Nader Cross [facility] COMPLETE W/ CONTRAST Medical [facility] PHOSPHORUS 2021-11-04 12:05:00 America edmond [facility] URIC ACID 2021-11-04 12:05:00 [place] edmond [facility] MAGNESIUM 2021-11-04 12:05:00 America edmond [facility] TROPONIN I 2021-11-04 12:05:00 America [facility] LIPID PANEL (25285)(TOTAL 2021-11-04 12:05:00 Nader Cross [facility] CHOLESTEROL, [facility] TRIGLYCERIDES, HDL) VITAMIN B12, LEVEL 2021-11-04 08:48:00 Nader Cross [facility] TROPONIN I 2021-11-04 08:48:00 America edmond [facility] SEDIMENTATION RATE 2021-11-04 08:48:00 America edmond [facility] VITAMIN D, 25-OH 2021-11-04 08:48:00 [place] [facility] PROCALCITONIN 2021-11-04 08:48:00 America edmond [facility] URINE DRUG (IMMUNOASSAY) 2021-11-04 08:08[facility]00 [facility] SCREEN URINALYSIS 2021-11-04 08:08:00 America edmond [facility] URINE CULTURE 2021-11-04 08:08:00 [place] edmond [facility] UREA NITROGEN, URINE 2021-11-04 08:08:00 Nader Cross [facility] SODIUM, URINE RANDOM 2021-11-04 08:08:00 [place] edmond [facility] PROTEIN CREAT RATIO URINE 2021-11-04 08:08:00 [facility] BY PCR 2021-11-04 08:08:00 Nader Cross [facility] COVID-19 (ID NOW RAPID 2021-11-04 04:03:00 Sheba Lott [facility] TESTING) Medical Branch LAB ONLY COVID 2021-11-04 04:03:00 [place] Lott [place] [facility] [place] INTERPRETATION [facility] Branch XR CHEST 1 VW 2021-11-04 02:57:00 Birgit Lemon [facility] ACUTE CARE ARTERIAL BLOOD 2021-11-04 02:57:00 [facility] LIPASE 2021-11-04 02:45:00 Birgit Lemon [facility] TROPONIN I 2021-11-04 02:45:00 Birgit Lemon [facility] COMP. METABOLIC PANEL 2021-11-04 02:45:00 Birgit Lemon [facility] ([id number]) Medical Branch CBC WITH DIFF 2021-11-04 02:45:00 Birgit Lemon [facility] GLYCOSYLATED HEMOGLOBIN 2021-11-04 02:45:00 Nader Cross [facility] (A1C) [facility] PROTHROMBIN TIME / INR 2021-11-04 02:45:00 Birgit Lemon [facility] ACTIVATED PARTIAL 2021-11-04 02:45:00 Birgit Lemon [facility] THRLAS [facility] HB ECG ROUTINE & RHYTHM 2021-11-04 02:13:29 Birgit Lemon [facility] NOTICE OF PRIVACY 2021-11-04 01:59:17 Doctor Unassigned, [facility] PRACTICES [facility] [place] CONSENT/REFUSAL FOR 2021-11-04 01:58:37 Doctor Unasssilverio, [facility] DIAGNOSIS AND TREATMENT [facility] [place] Encounters Start End Encounter Admission Attending Care Care Encounter Source Date/Time Date/Time Type Type Clinicians Facility Department ID 2021-11-06 2021-11-06 Transition DONAVAN Davidson [id number] Univers 00:00:00 00:00:00 of Care [id number] Ray kay [id number] [facility] 403 Branch 2021-11-03 2021-11-05 Outpatient X PONCHO [facility] [id number] Univers 21:06:00 18:36:00 ALEXIS [facility] 2021-11-03 2021-11-05 Hospital Sheba Lott [facility] [id number] Univers 21:06:00 18:36:00 Encounter Nader Cross [id number] ity Alexis Carey [id number] [facility] [id number] [facility] 081 Branch Results Test Description Test Time Test Comments Results Result Comments Source LIPID PANEL ([id number])(TOTAL CHOLESTEROL, TRIGLYCERIDES, HDL) 17:05:42 Test Item Value Reference Range Interpretation Comme nts CHOL (test code = 4442396694) 186 mg/dL 120-200 HDL (test code = 7394170332) 45 mg/dL >40 HDLC RATIO (test code = See_Comment [Au tomated message] The 0897998856) system which [employer] nerated this result transmit michael reference range: <=5.0. T he reference range was not u sed to interpret this result as normal/abnormal . TRIG (test code = 4381719481) 64 mg/dL 30-170 LDL CHOL (test code = 51067-6) 128 mg/dL See_Comment [Automated message] The system which [employer] nerated this result transmit michael reference range: <=160. T he reference range was not u sed to interpret this result as normal/abnormal . VLDL (test code = 2111077659) 13 mg/dL 5-60 Lab Interpretation (test code = Normal 19631-9) [facility] (30448)2021-11-05 17:05:21 Test Item Value Reference Range Interpretation Comments NA (test code = 138 mmol/L 135-145 9739947207) K (test code = 4.6 mmol/L 3.5-5.0 3714943409) CL (test code = 104 mmol/L 98-108 1343319574) CO2 TOTAL (test code = 30 mmol/L 23-31 7867986316) AGAP (test code = 2-16 3944852950) BUN (test code = 20 mg/dL 7-23 0246839519) GLUCOSE (test code = 102 mg/dL 70-110 9525085137) CREATININE (test code = 0.63 mg/dL 0.60-1.25 1012687557) TOTAL BILI (test code = 1.2 mg/dL 0.1-1.1 H 3254125222) CALCIUM (test code = 9.0 mg/dL 8.6-10.6 4150171803) T PROTEIN (test code = 6.6 g/dL 6.3-8.2 4834302208) ALBUMIN (test code = 3.2 g/dL 3.5-5.0 L 3823916207) ALK PHOS (test code = 75 U/L 34-122 4354168858) ALTv (test code = 35 U/L 5-50 1742-6) AST(SGOT) (test code = 39 U/L 13-40 8031997837) eGFR (test code = mL/min/1.73m2 1692968578) TIFFANY (test code = TIFFANY) Association of [...] tests). Lab Interpretation Abnormal (test code = 07097-1) [facility]2022-[facility]-07 17:05:21 Test Item Value Reference Range Interpretation Comments MAGNESIUM (test code = 4047061081) 1.9 mg/dL 1.7-2.4 Lab Interpretation (test code = Normal 07533-8) [facility] Hospital[facility] STIMULATING [id number] 12:35:38 Test Item Value Reference Range Interpretation Comments TSH (test code = See_Comment [Automated message] 4378747917) The system [employer] generated this result transmitted ref erence range: 0.45 - 4 .70 mIU/L. The refe rence range was not u sed to interpret this result as normal/abnor mal. Lab Interpretation (test Normal code = 67906-5) [facility] [id number] 12:22:17 Test Item Value Reference Range Interpretation Comments FREE T4 (test code = See_Comment [Autom ated message] 8886929475) The system [employer] generated this result transmitted ref erence range: 0.78 - 2 .20 ng/dL:. The ref erence range was not u sed to interpret this result as normal/abnor mal. Lab Interpretation (test Normal code = 87640-4) [facility] [id number] 12:16:59 Test Item Value Reference Interpretation Comments Range TROPONIN I (test 0.026 ng/mL See_Comment [Automated code = 3231934884) message] The system which generated this result [...] biotin. Lab Interpretation Normal (test code = 60633-8) [facility] [id number] 12:13:58 Test Item Value Reference Range Interpretation Comments NT-proBNP (test code 228 pg/mL See_Comment H [Autom ated = 6502759074) message] The system which generated this result transmitted reference range : <=125. The reference range was not used to interpret this result as normal/abnormal . TIFFANY (test code = TIFFANY) Biotin has been reported to cause a negative bias, interpret results relative to patient's use of biotin. Lab Interpretation Abnormal (test code = 00207-0) [facility]an[facility] echo (TTE)2021-11-05 00:59:55 Test Item Value Reference Range Interpretation Comments LVIDD (test code = 4.50 cm 3054484793) IVS (test code = 1.10 cm 4604775794) Interventricular Septum 1.10 cm Diastolic Thickness by 2D (test code = 7886094) LVPWD (test code = 1.24 cm 3078795528) PW (test code = 1.24 cm 0.6-1.2 2518911339) LVOT diameter (test code 1.92 cm = 6959447831) ACS (test code = 1.82 cm 7345179215) Ao root annulus (test 3.5 cm code = 5372977692) Ao root diam (test code 3.50 cm = 6272486608) Aortic root (test code = 3.5 cm 0266774527) LA size (test code = 4.6 cm 9314739531) E wave decelartion time 0.21 s (test code = 6080257220) MV Peak E William (test code 64.9 cm/s = 4339447040) MV Peak A William (test code 83.8 cm/s = 6329772786) E/A ratio (test code = ratio 9721229301) MV Prop V (test code = 65.80 cm/s 1869631801) Tapse (test code = 1.92 cm 5040355539) LVOT stroke volume (test 67.60 cm3 code = 3385680836) LVOT peak william (test code 110.2 cm/s = 3964944506) LVOT mn grad (test code mmHg = 8306359153) AV LVOT peak gradient mmHg (test code = 6889635503) LVOT peak VTI (test code 23.3 cm = 6027713783) LV V1 mean (test code = 62.80 cm/s 7275967667) Aortic valve mean 129.2 cm/s velocity (test code = 2564799794) Ao peak william (test code = 230.1 cm/s 8983125043) Ao VTI (test code = 39.0 cm 8056470636) AV area by cont VTI 1.7 cm2 (test code = 5320882187) AV area peak william (test 1.4 cm2 code = 3339767680) Ao max PG (test code = 21.20 mm[Hg] 5704790571) AV peak gradient (test mmHg code = 8556057050) AV valve area (test code 1.73 cm2 = 6645859588) AV mean gradient (test mmHg code = 1805480397) TR Peak William (test code = 233.7 cm/s 0806451190) Triscuspid Valve mmHg Regurgitation Peak Gradient (test code = 3630090463) EF(Teich) (test code = 60.40 % 9387930131) LVIDS (test code = 3.10 cm 0024530078) FS (test code = 32 % 9205068383) EF - 2D (test code = 60.40 % 72394083) Radiology Study observation (narrative) (test code = 96535-6) TIFFANY (test code = TIFFANY) ?Left?Ventricle: Left [...] (99.8 kg) 2.23 sq meters 130/95 88 [facility] [id number] 00:28:36 Test Item Value Reference Interpretation Comments Range TROPONIN I (test 0.015 ng/mL See_Comment [Automated code = 2581218415) message] The system which generated this result [...] biotin. Lab Interpretation Normal (test code = 98993-9) [facility] D, [id number] 17:50:34 Test Item Value Reference Range Interpretation Comments VIT D 25OH (test code = 19 ng/mL 25-80 L 86483-7) TIFFANY (test code = TIFFANY) Deficiency: <20 ng/mLInsufficiency: 20-24 ng/mLOptimal: 25-80 ng/mL Lab Interpretation (test Abnormal code = 60045-5) [facility]AL[facility]IN2022-04-06 16:54:29 Test Item Value Reference Range Interpretation Comments Procalcitonin (test 0.03 ng/mL <0.07 code = 7358712786) TIFFANY (test code = TIFFANY) INTERPRETATION OF [...] lung abscess/empyema. For further information please refer to:[email or web address] Lab Interpretation Normal (test code = 37010-3) [facility] Hospital[facility] B12, [id number] 16:39:51 Test Item Value Reference Range Interpretation Comments VIT B12 (test code = 636 pg/mL 240-930 2729417918) TIFFANY (test code = TIFFANY) Biotin has been reported to cause a positive bias, interpret results relative to patient's use of biotin. Lab Interpretation (test Normal code = 96907-6) [facility] HospitalLIPID PANEL (70294)(TOTAL CHOLESTEROL, TRIGLYCERIDES, HDL)2021-11-04 15:21:56 Test Item Value Reference Range Interpretation Comments CHOL (test code = 183 mg/dL 120-200 3376811786) HDL (test code = 40 mg/dL >40 L 5496469861) HDLC RATIO (test code = See_Comment [Au tomated message] 8538128771) The system [employer] generated this result transmit michael reference range : <=5.0. The refe rence range was not u sed to interpret th is result as normal/abnormal . TRIG (test code = 57 mg/dL 30-170 6573787586) LDL CHOL (test code = 132 mg/dL See_Comment [Auto mated message] 37518-0) The system [employer] generated this result transmit michael reference range : <=160. The refe rence range was not u sed to interpret th is result as normal/abnormal . VLDL (test code = 11 mg/dL 5-60 9818928785) Lab Interpretation (test Abnormal code = 17400-7) [facility]2022-04-06 15:21:56 Test Item Value Reference Range Interpretation Comments MAGNESIUM (test code = 7544416253) 1.6 mg/dL 1.7-2.4 L Lab Interpretation (test code = Abnormal 44340-3) [facility]PHOSPHORUS2022-04-06 15:21:36 Test Item Value Reference Range Interpretation Comments PHOSPHORUS (test code = 1811456617) 3.1 mg/dL 2.5-5.0 Lab Interpretation (test code = Normal 51906-1) [id number] 15:21:16 Test Item Value Reference Range Interpretation Comments URIC ACID (test code = 0764150771) 4.4 mg/dL 3.6-8.0 Lab Interpretation (test code = Normal 17703-2) [facility] [id number] 13:34:13 Test Item Value Reference Interpretation Comments Range TROPONIN I (test 0.038 ng/mL See_Comment H [Automated code = 7964104907) message] The system which generated this result [...] biotin. Lab Interpretation Abnormal (test code = 98954-2) [facility] [id number] 11:19:15 Test Item Value Reference Range Interpretation Comments ESR (test code = See_Comment [Automated message] 5202444381) The system Miso generated this result transmitted ref erence range: 0 - 10 m m/HR. The reference r laura was not used to interpret this result as normal/abnor mal. Lab Interpretation (test Normal code = 94867-0) [facility] [id number] 10:43:39 Test Item Value Reference Interpretation Comments Range TROPONIN I (test 0.037 ng/mL See_Comment H Hemolyzed code = 5707821626) specimen [Automated message] The system which generated [...] biotin. Lab Interpretation Abnormal (test code = 00751-4) [facility] (A1C)2021-11-04 09:01:59 Test Item Value Reference Range Interpretation Comments HGB A1C (test code = 6.0 % 4.0-5.7 H 4548-4) TIFFANY (test code = TIFFANY) Reference RangesNormal: <5.7%Prediabetes: 5.7 - 6.4%Diabetes: > 6.5% Lab Interpretation (test Abnormal code = 04216-9) [facility] [id number] 03:17:54 Test Item Value Reference Interpretation Comments Range TROPONIN I (test 0.035 ng/mL See_Comment H [Automated code = 0889009589) message] The system which generated this result [...] biotin. Lab Interpretation Abnormal (test code = 31884-2) [facility]COMP. METABOLIC PANEL (00355)2021-11-04 03:06:14 Test Item Value Reference Range Interpretation Comments NA (test code = 136 mmol/L 135-145 2438490547) K (test code = 4.4 mmol/L 3.5-5.0 3437042368) CL (test code = 99 mmol/L 98-108 8705331617) CO2 TOTAL (test code = 29 mmol/L 23-31 7837625244) AGAP (test code = 2-16 2061792276) BUN (test code = 22 mg/dL 7-23 1949248092) GLUCOSE (test code = 164 mg/dL 70-110 H 0161155375) CREATININE (test code = 0.72 mg/dL 0.60-1.25 6314824509) TOTAL BILI (test code = 1.8 mg/dL 0.1-1.1 H 7227620885) CALCIUM (test code = 9.3 mg/dL 8.6-10.6 7917429094) T PROTEIN (test code = 7.5 g/dL 6.3-8.2 9150855639) ALBUMIN (test code = 3.7 g/dL 3.5-5.0 8541642521) ALK PHOS (test code = 98 U/L 34-122 8743232496) ALTv (test code = 35 U/L 5-50 1742-6) AST(SGOT) (test code = 48 U/L 13-40 H 7970644027) eGFR (test code = mL/min/1.73m2 5952776136) TIFFANY (test code = TIFFANY) Association of [...] tests). Lab Interpretation Abnormal (test code = 64455-5) [facility] HospitalLIP[facility], [id number] 03:05:54 Test Item Value Reference Range Interpretation Comments LIPASE (test code = 2704380751) 253 U/L 0-220 H Lab Interpretation (test code = Abnormal 97480-3) [facility] HospitalaPTT2022-04-06 03:03:13 Test Item Value Reference Range Interpretation Comments APTT Patient (test See_Comment [Automat ed code = 3173-2) message] The system which generated this result transmitted reference range : 23 - 38 Seconds . The reference range was not used to interpr et this result as normal/abnormal . TIFFANY (test code = TIFFANY) The [facility] patient population mean normal value for aPTT is 30 seconds. Lab Interpretation Normal (test code = 55492-1) [facility] HospitalPROTHROMBIN TIME / [id number] 03:01:34 Test Item Value Reference Range Interpretation [...] tions. Lab Interpretation (test Abnormal code = 55081-0) [facility] HospitalCB WITH [id number] 02:55:12 Test Item Value Reference Range Interpretation Comments WBC (test code = See_Comment [Automated 5290-2) message] The sy stem which generated this [...] RDW-SD (test code = 50.4 fL 38.5-51.6 59438-3) RDW-CV (test code = 14.8 % 12.1-15.4 788-0) PLT (test code = See_Comment L [Automated 777-3) message] The sy stem which generated this result transmitted reference range : 150 - 328 10*3/ ?L. The reference r laura was not used to interpret this result as normal/abnormal . MPV (test code = 10.3 fL 9.8-13.0 26317-9) NRBC/100 WBC (test See_Comment [Automat ed code = 8624174191) message] The system which generated this result transmitted reference range : 0.0 - 10.0 /100 WBCs. The refer ence range was not u sed to interpret th is result as normal/abnormal . NRBC x10^3 (test code <0.01 See_Comment [Auto mated = 1607845234) message] The s ystem which generated this result transmitted reference range : 10*3/?L. The reference range was not used to interpret this result as normal/abnormal . GRAN MAT (NEUT) % 72.3 % (test code = 770-8) IMM GRAN % (test code 1.70 % = 1633570867) LYMPH % (test code = 16.5 % 736-9) MONO % (test code = 8.2 % 5905-5) EOS % (test code = 1.0 % 713-8) BASO % (test code = 0.3 % 706-2) GRAN MAT x10^3(ANC) 7.35 10*3/uL 1.99-6.95 H (test code = 2775641967) IMM GRAN x10^3 (test 0.17 10*3/uL 0.00-0.06 H code = 6189859637) LYMPH x10^3 (test code 1.67 10*3/uL 1.09-3.23 = 731-0) MONO x10^3 (test code 0.83 10*3/uL 0.36-1.02 = 742-7) EOS x10^3 (test code = 0.10 10*3/uL 0.06-0.53 711-2) BASO x10^3 (test code 0.03 10*3/uL 0.01-0.09 = 704-7) Lab Interpretation Abnormal (test code = 43393-6) [facility]
[2021-12-09] MEDS ORDERED: KETOROLAC 30 MG/ML INJ ONE (23:20)
[2021-12-09] MEDS ORDERED: METHOCARBAMOL 1,000 MG/10 ML VIAL IV ONE (23:20)
[2021-12-09] MEDS ORDERED: FENTANYL CITR 100 MCG/2 ML ONE (23:20)
[2021-12-09] MEDS ORDERED: NA CHLORIDE 0.9% 100 ML IV ONE (23:20)
[2021-12-09 23:28] LABS: Absolute Lymphocytes (CBC) 0.8 K/uL (0.7-4.9); Hematocrit 37.3 % (39.6-49.0); Lymphocytes % 14.5 % (15.3-44.8); MPV 7.2 fL (7.6-11.3); RBC Red Blood Cell Count 3.94 M/uL (4.33-5.43)
[2021-12-09 23:35] LABS: Magnesium 1.6 mg/dL (1.8-2.4); Potassium 3.5 mmol/L (3.5-5.1); Troponin High Sensitivity 20.8 pg/mL (<58.9)
[2021-12-09] MEDS ORDERED: FUROSEMIDE 40 MG/4 ML VIAL ONE (23:37)
[2021-12-10 00:01] LABS: Blood Morphology Comment NOT SEEN (NOT SEEN); Platelet Estimate DECR; White Blood Cell Scan OK (OK)
[2021-12-10] MEDS ORDERED: Magnesium Sulfate 2gm IVPB 2 G/50 ML BAG IV ONE (00:23)
--- NOTE | 2021-12-10 00:24 | EDPHYS ---
Physician Documentation [facility] Name: Joseph Quach Age: 61 yrs Sex: Male : 1960 Arrival Date: 12/09/2021 Time: 21:57 Bed 7 Private MD: ED Physician Sohail Campbell HPI: 12/09 23:27 This 61 yrs old Male presents to ER via Wheelchair with complaints of Breathing jr8 Difficulty, Pain All Over. 23:27 Patient stated that he has been having continued pain to chest and upper back. Stated jr8 that he saw Dr. Douglass and had imaging done of thoracic spine and saw a compression fracture. Stated that he has been ordered meds but have not come in yet. Stated that the pain was too much for him tonight and is causing shortness of breath. Patient had recent echocardiogram and heart cath, both of which did not show acute infarction . Severity of symptoms: At their worst the symptoms were moderate in the emergency department the symptoms are unchanged. The patient has experienced similar episodes in the past, several times. The patient has been recently seen by a physician:. Historical: - Allergies: 22:11 Fish Containing Products; ld1 - PMHx: 22:11 angina pectoris; cirrhosis of liver; COPD; High Cholesterol; Hypertensive disorder; ld1 Myocardial infarction; - Immunization history:: Adult Immunizations up to date, Client reports having NOT received the Covid vaccine. - Social history:: Smoking status: Patient/guardian denies using tobacco, Stopped _ months ago 2 Patient/guardian denies using alcohol. ROS: 23:27 Eyes: Negative for injury, pain, redness, and discharge, ENT: Negative for injury, jr8 pain, and discharge, Neck: Negative for injury, pain, and swelling, Abdomen/GI: Negative for abdominal pain, nausea, vomiting, diarrhea, and constipation, MS/Extremity: Negative for injury and deformity, Skin: Negative for injury, rash, and discoloration, Neuro: Negative for headache, weakness, numbness, tingling, and seizure. 23:27 Cardiovascular: Positive for chest pain, edema, Negative for orthopnea, palpitations, paroxysmal nocturnal dyspnea. 23:27 Respiratory: Positive for shortness of breath. 23:27 Back: Positive for pain at rest, pain with movement, of the thoracic area. Exam: 23:27 Eyes: Pupils equal round and reactive to light, extra-ocular motions intact. Lids and jr8 lashes normal. Conjunctiva and sclera are non-icteric and not injected. Cornea within normal limits. Periorbital areas with no swelling, redness, or edema. Neck: Trachea midline, no thyromegaly or masses palpated, and no cervical lymphadenopathy. Supple, full range of motion without nuchal rigidity, or vertebral point tenderness. No Meningismus. Abdomen/GI: Soft, non-tender, with normal bowel sounds. No distension or tympany. No guarding or rebound. No evidence of tenderness throughout. Skin: Warm, dry with normal turgor. Normal color with no rashes, no lesions, and no evidence of cellulitis. MS/ Extremity: Pulses equal, no cyanosis. Neurovascular intact. Full, normal range of motion. Neuro: Awake and alert, GCS 15, oriented to person, place, time, and situation. Cranial nerves II-XII grossly intact. Motor strength 5/5 in all extremities. Sensory grossly intact. 23:27 Constitutional: The patient appears alert, awake, in obvious pain. 23:27 Cardiovascular: Rate: tachycardic, Rhythm: regular, Pulses: Pulses are 2+ in right radial artery and left radial artery. Heart sounds: normal, Edema: 2+ edema to level of left midcalf, left ankle, left foot, right midcalf, right ankle and right foot. 23:27 Respiratory: the patient does not display signs of respiratory distress, Respirations: normal, Breath sounds: wheezing: expiratory that is mild, is heard diffusely. 23:27 Back: pain, that is moderate, of the thoracic area, ROM is painful, normal spinal alignment noted, vertebral tenderness, is appreciated at T6, T7 and T8. Vital Signs: 22:10 BP 128 / 69; Pulse 118; Resp 18; Temp 98.3(TE); Pulse Ox 96% on R/A; Weight 113.4 kg; ld1 Height 5 ft. 11 in. (180.34 cm); Pain 10/10; 23:39 BP 152 / 81; Pulse 116; Resp 22 S; Pulse Ox 95% on R/A; as6 05/12 00:40 BP 137 / 96; Pulse 108; Resp 20 S; Pulse Ox 93% on R/A; as6 01:43 BP 115 / 77; Pulse 108; Resp 18 S; Pulse Ox 94% on R/A; as6 03:12 BP 123 / 80; Pulse 107; Resp 18 S; Pulse Ox 93% on R/A; as6 12/09 22:10 Body Mass Index 34.87 (113.40 kg, 180.34 cm) ld1 MDM: 12/09 22:37 Patient medically screened[address] [facility] 23:27 Data reviewed: vital signs, nurses notes, lab test result(s), EKG, radiologic studies, jr8 plain films. Data interpreted: Pulse oximetry: on room air is 96 %. Interpretation: normal. Counseling: I had a detailed discussion with the patient and/or guardian regarding: the historical points, exam findings, and any diagnostic results supporting the discharge/admit diagnosis, lab results, radiology results. 12/10 00:15 Transition of care: After a detail discussion of the patient's case, care is jr8 transferred to Sohail Campbell MD. ED course: Patient doing mildly better. Will continue to observe. 12/09 22:37 Order name: Basic Metabolic Panel; Complete Time: 23:[address] [facility] 12/09 22:37 Order name: CBC with Diff; Complete Time: 00:[address] [facility] 12/09 22:37 Order name: Magnesium; Complete Time: 23:[address] [facility] 12/09 22:37 Order name: NT PRO-BNP; Complete Time: 23:[address] [facility] 12/09 22:37 Order name: Troponin HS; Complete Time: 23:[address] [facility] 12/09 23:31 Order name: CBC Smear Scan; Complete Time: 00:02 EDMS 12/09 22:37 Order name: XRAY Chest (1 view) [facility] 12/09 22:37 Order name: EKG; Complete Time: 22:[address] [facility] 12/09 22:37 Order name: Cardiac monitoring; Complete Time: 22:[address] [facility] 12/09 22:37 Order name: EKG - Nurse/Tech; Complete Time: 22:[address] [facility] 12/09 22:37 Order name: IV Saline Lock; Complete Time: 23:[address] [facility] 12/09 22:37 Order name: Labs collected and sent; Complete Time: 23:[address] [facility] 12/09 22:37 Order name: O2 Per Protocol; Complete Time: 23:[address] [facility] 12/09 22:37 Order name: O2 Sat Monitoring; Complete Time: 23:05 jr8 Administered Medications: 12/09 23:25 Drug: Ketorolac 15 mg Route: IVP; Site: left wrist; as6 12/10 03:13 Follow up: Response: No adverse reaction as6 12/09 23:25 Drug: Robaxin (methocarbamol) 1 grams Route: IVPB; Infused Over: 1 hrs; Site: left as6 wrist; 12/10 03:13 Follow up: Response: No adverse reaction; IV Status: Completed infusion; IV Intake: as6 100ml 12/09 23:28 Drug: fentaNYL (PF) 50 mcg Route: IVP; Site: left wrist; as6 12/10 03:13 Follow up: Response: No adverse reaction; RASS: Alert and Calm (0) as6 12/09 23:39 Drug: Lasix (furosemide) 40 mg Route: IVP; Site: left wrist; as6 12/10 03:13 Follow up: Response: No adverse reaction as6 00:47 Drug: fentaNYL (PF) 75 mcg Route: IVP; Site: left wrist; as6 03:13 Follow up: Response: No adverse reaction; RASS: Alert and Calm (0) as6 01:42 Drug: Magnesium Sulfate 2 grams Route: IVPB; Infused Over: 1 hrs; Site: left wrist; as6 03:13 Follow up: Response: No adverse reaction; IV Status: Completed infusion; IV Intake: [id number] Disposition Summary: 12/10/21 00:24 Discharge Ordered Location: Home jr8 Problem: new jr8 Symptoms: have improved jr8 Condition: Stable jr8 Diagnosis - Chest pain, unspecified jr8 - Pain in thoracic spine jr8 Followup: jr8 - With: Private Physician - When: 2 - 3 days - Reason: Recheck today's complaints, Continuance of care, Re-evaluation by your physician Discharge Instructions: - Discharge Summary Sheet jr8 - Nonspecific Chest Pain, Adult jr8 - Chest Wall Pain jr8 Forms: - Medication Reconciliation Form jr8 - Thank You Letter jr8 - Antibiotic Education jr8 - Prescription Opioid Use jr8 Signatures: Dispatcher [employer] EDDennis King PA PA jr8 Alfreda Corral RN RN ld1 Lawson Dangelo RN RN as6
--- NOTE | 2021-12-10 00:24 | ER ---
Nurse's Notes [facility] Name: Joseph Quach Age: 61 yrs Sex: Male : 1960 Arrival Date: 12/09/2021 Time: 21:57 Bed 7 Private MD: Diagnosis: Chest pain, unspecified;Pain in thoracic spine Presentation: 12/09 22:10 Chief complaint: Patient states: I have been to the hospital several times in the past ld1 few weeks. C/O chest pain and SOB. Upon arrival to ER SpO2 96% RA. Coronavirus screen: At this time, the client does not indicate any symptoms associated with coronavirus-19. Ebola Screen: No symptoms or risks identified at this time. Initial Sepsis Screen: Does the patient meet any 2 criteria? No. Patient's initial sepsis screen is negative. Does the patient have a suspected source of infection? No. Patient's initial sepsis screen is negative. Risk Assessment: Do you want to hurt yourself or someone else? Patient reports no desire to harm self or others. Onset of symptoms was December 09, 2021. 22:10 Method Of Arrival: Wheelchair ld1 22:10 Acuity: AISLINN 3 ld1 Triage Assessment: 22:11 General: Appears in no apparent distress. comfortable, Behavior is cooperative, ld1 appropriate for age, anxious. Pain: Complains of pain in chest Pain does not radiate. Pain currently is 8 out of 10 on a pain scale. Quality of pain is described as heavy, throbbing. Neuro: Level of Consciousness is awake, alert, obeys commands, Oriented to person, place, time, situation. Cardiovascular: Capillary refill < 3 seconds Patient's skin is warm and dry. Rhythm is sinus tachycardia. Respiratory: Reports shortness of breath Airway is patent Respiratory effort is even, labored, Onset: The symptoms/episode began/occurred gradually, the patient has moderate shortness of breath. Musculoskeletal: Reports pain in chest. Historical: - Allergies: 22:11 Fish Containing Products; ld1 - PMHx: 22:11 angina pectoris; cirrhosis of liver; COPD; High Cholesterol; Hypertensive disorder; ld1 Myocardial infarction; - Immunization history:: Adult Immunizations up to date, Client reports having NOT received the Covid vaccine. - Social history:: Smoking status: Patient/guardian denies using tobacco, Stopped _ months ago 2 Patient/guardian denies using alcohol. Screenin:41 Abuse screen: Denies threats or abuse. Denies injuries from another. Nutritional as6 screening: No deficits noted. Tuberculosis screening: No symptoms or risk factors identified. Fall Risk None identified. Assessment: 23:00 General: Appears in no apparent distress. Behavior is calm, cooperative. as6 23:00 Pain: Complains of pain in chest Pain radiates to back. Neuro: Level of Consciousness as6 is awake, alert, obeys commands, Oriented to person, place, time, situation. Cardiovascular: Reports chest pain, shortness of breath, Rhythm is sinus tachycardia. Cardiovascular: Edema pitting to left midcalf, left ankle, left foot, left toes, right midcalf, right ankle, right foot and right toes. Respiratory: Reports shortness of breath cough that is Respiratory effort is even, unlabored, Respiratory pattern is regular, symmetrical. Vital Signs: 22:10 BP 128 / 69; Pulse 118; Resp 18; Temp 98.3(TE); Pulse Ox 96% on R/A; Weight 113.4 kg; ld1 Height 5 ft. 11 in. (180.34 cm); Pain 10/10; 23:39 BP 152 / 81; Pulse 116; Resp 22 S; Pulse Ox 95% on R/A; as6 05/12 00:40 BP 137 / 96; Pulse 108; Resp 20 S; Pulse Ox 93% on R/A; as6 01:43 BP 115 / 77; Pulse 108; Resp 18 S; Pulse Ox 94% on R/A; as6 03:12 BP 123 / 80; Pulse 107; Resp 18 S; Pulse Ox 93% on R/A; as6 05 22:10 Body Mass Index 34.87 (113.40 kg, 180.34 cm) ld1 ED Course: 12/09 21:57 Patient arrived in ED. jj6 22:11 Triage completed. ld1 22:11 Arm band placed on right wrist. ld1 22:37 Dennis Lara PA is PHCP. jr8 22:37 Sohail Campbell MD is Attending Physician. jr8 22:38 Lawson Dangelo RN is Primary Nurse. as6 22:55 XRAY Chest (1 view) In Process Unspecified. EDMS 23:02 Inserted saline lock: 22 gauge in left wrist, using aseptic technique. Blood collected. as6 23:41 Placed in gown. Bed in low position. Call light in reach. Side rails up X2. Client as6 placed on continuous cardiac and pulse oximetry monitoring. NIBP monitoring applied. Warm blanket given. 12/10 03:12 No provider procedures requiring assistance completed. IV discontinued, intact, as6 bleeding controlled, No redness/swelling at site. Pressure dressing applied. Administered Medications: 12/09 23:25 Drug: Ketorolac 15 mg Route: IVP; Site: left wrist; as6 12/10 03:13 Follow up: Response: No adverse reaction as6 12/09 23:25 Drug: Robaxin (methocarbamol) 1 grams Route: IVPB; Infused Over: 1 hrs; Site: left as6 wrist; 12/10 03:13 Follow up: Response: No adverse reaction; IV Status: Completed infusion; IV Intake: as6 100ml 12/09 23:28 Drug: fentaNYL (PF) 50 mcg Route: IVP; Site: left wrist; as6 12/10 03:13 Follow up: Response: No adverse reaction; RASS: Alert and Calm (0) as6 12/09 23:39 Drug: Lasix (furosemide) 40 mg Route: IVP; Site: left wrist; as6 12/10 03:13 Follow up: Response: No adverse reaction as6 00:47 Drug: fentaNYL (PF) 75 mcg Route: IVP; Site: left wrist; as6 03:13 Follow up: Response: No adverse reaction; RASS: Alert and Calm (0) as6 01:42 Drug: Magnesium Sulfate 2 grams Route: IVPB; Infused Over: 1 hrs; Site: left wrist; as6 03:13 Follow up: Response: No adverse reaction; IV Status: Completed infusion; IV Intake: [id number] Medication: 12/09 23:41 VIS not applicable for this client. as6 Intake: 12/10 03:13 IV: 100ml; Total: 100ml. as6 03:13 IV: 50ml; Total: 150ml. as6 Outcome: 00:24 Discharge ordered by MD. sorensen 03:12 Discharged to home ambulatory. as6 03:12 Condition: stable 03:12 Discharge instructions given to patient, Instructed on discharge instructions, follow up and referral plans. Demonstrated understanding of instructions, follow-up care. 03:14 Patient left the ED. as6 Signatures: Dispatcher [employer] EDMS Dennis Lara PA PA jr8 Alfreda Corral RN RN ld1 Toshia Coy jj6 Lawson Dangelo RN RN as6
[2021-12-10] MEDS ORDERED: FENTANYL CITR 100 MCG/2 ML ONE (00:45)
[2021-12-10 04:31] VITALS: TEMP 98.3
[2021-12-10 04:36] VITALS: BP 123/80; O2SAT 93
--- NOTE | 2021-12-10 07:43 | EKG ---
Test Date: 2021-12-09 Test Time: 22:52:50 [place] Fil[employer] Supervisor: MEASUREMENT RESULTS: Intervals: Rate: 118 NE: 130 QRSD: 82 QT: 308 QTc: 431 [place]: P: 77 NE: 130 QRS: 75 T: 74 INTERPRETIVE STATEMENTS: Sinus tachycardia with fusion complexes Otherwise normal ECG Compared to ECG 12/07/2021 22:30:23 Fusion complex(es) now present Electronically Signed On 12-10-21 07:42:54 CDT by Manuel Joya
--- NOTE | 2021-12-10 15:38 | RAD REPORT ---
EXAM DESCRIPTION: RAD - Chest Single View - 12/09/2021 10:53 pm CLINICAL HISTORY: 1 years Male, DYSPNEA COMPARISON: Chest radiograph dated 12/07/2021 FINDINGS/IMPRESSION: No focal consolidation. No pleural effusion. No pneumothorax. Cardiomediastinal silhouette is enlarged. Vascular congestion and interstitial edema. No acute osseous abnormality. Electronically signed by: Rafael Hines DO 12/09/2021 11:15 PM CDT Due to temporary technical issues with the PACS/Fluency reporting system, reports are being signed by the in house radiologists without review as a courtesy to insure prompt reporting. The interpreting radiologist is fully responsible for the content of the report.
== END 2021-12-10 03:14 | disposition home or self-care (01) ==
LOC: ER 21:53
DX: R07.9 Chest pain, unspecified (principal); M54.6 Pain in thoracic spine; E78.00 Pure hypercholesterolemia, unspecified; I10 Essential (primary) hypertension; I25.2 Old myocardial infarction; Z91.013 Allergy to seafood
CPT/HCPCS: 96365; 93005; 85025; 80048; 36415; 83735; 84484; 83880; 71045; 96375; 99284; 96366; J1940; J3010 ×2; J3475; J2800

== ENCOUNTER 2021-12-30 07:38 | Emergency (ER) | payer OTHER ==
--- OUTSIDE RECORDS SUMMARY | 2021-12-30 07:43 | XMS REPORT | Continuity of Care Document ---
:1960 Author Organization [facility] t Address [address] [place] [address] Care Team Providers Name Role Phone [facility] [phone] Ingrid MEHTA Attending Clinician Unavailable Laila STEELE Attending Clinician Harlan STEELE W Attending Clinician Ingrid Mehta MD Attending Clinician Valente STEELE Attending Clinician Stuart STORY Attending Clinician Unavailable PONCHO Attending Clinician Unavailable Oren BLACK S Attending Clinician America STEELE Attending Clinician Poncho STEELE Attending Clinician VALENTE Admitting Clinician Unavailable Valente STEELE Admitting Clinician PONCHO Admitting Clinician Unavailable Poncho STEELE Admitting Clinician Payers Payer Name Policy Type Policy Number Effective Date Expiration Date S [facility] [id number] 2021 COMM 00:00:00 [place] OF [place] [id number] 2020 00:00:00 Problems Condition Condition Condition Status Onset Resolution Last Treating Co mments Source Name Details Category Date Date Treatment Clinician Date Volume Volume Disease Active Univers overload overload 5-18 ity of 00:00: [place] [address] [facility] [place] COPD with COPD with Disease Active Uni vers acute acute 4-07 ity of exacerbati exacerb[place] Obesity Obesity Disease Active Univers (BMI (BMI 4-06 ity of 30-39.9) 30-39.9) 00:00: [address] COPD COPD Disease Active Univers exacerbati exacerbati 4-06 it y of on on 00:00: [place] [address] [facility] [place] Troponin I Troponin I Disease Active U nivers above above 4-06 [place] of [place] range [place] Cigarette Cigarette Disease Active Uni vers smoker smoker 4-06 ity of 00:00: [address] Chest pain Chest pain Disease Active U nivers 4-05 ity of 00:00: [place] 00 [facility] Allergies, Adverse Reactions, Alerts Allergy Allergy Status Severity Reaction(s) Onset Inactive Treating Comm ents Source Name Type Date Date Clinician Seafood/ Propensi Active Rash 2018-08 Univer s Fish ty to 2-17 ity of adverse 00:00: [place] reaction 00 Medical Branch SEAFOOD/ Food Active Rash 2018-08 Univers FISH 2-17 ity of 00:00: [address] Social History Social Habit Start Date Stop Date Quantity Comments Source Exposure to 2021-12-05 2021-12-15 Not sure [facility] SARS-CoV-2 00:00:00 15:50:00 [facility] (event) Branch Alcohol intake 2021-12-15 2021-12-15 Ex-drinker [facility] 00:00:00 00:00:00 (finding) [facility] Branch Education 2021-11-04 2021-11-04 9 University of 00:00:00 00:00:00 [facility] Tobacco use and 2019-05-29 2019-05-29 Current user Univers ity of exposure 00:00:00 00:00:00 [facility] History of 2017-05-29 Smoker University of tobacco use 00:00:00 [facility] Sex Ass[birth year] At [birth year] Universit y of 00:00:00 00:00:00 [facility] Smoking Status Start Date Stop Date Source Former smoker 2019-05-29 00:00:00 2019-05-29 00:00:00 [facility] Medications Ordered Filled Start Stop Current Ordering Indication Dosage Frequency Signature Comments Components Source Medication Medication Date Date Medication? Clinician (SIG) Name Name spironolact 2021- Yes [id number] 100mg Take 1 Univers one 100 mg 5-20 -19 tablet by ity of tablet 00:00: 04:59 mouth [place] 00 :00 daily for Medical 90 days. Branch mometasone/ Yes Inhale. Uni vers formoterol 5-19 ity of (DULERA 21:29: [place] INHALE) Medical Branch aspirin 81 0 Yes 81mg Take 81 mg U nivers mg chewable 5-19 by mouth ity of tablet 21:29: daily. [place] [address] Medical [place] gabapentin Yes 300mg Take 300 [place] 300 mg 5-19 mg by ity of capsule 21:29: mouth 2 [place] 50 (two) Medical times Branch daily. lactulose Yes 15mL 15 mL, Univer s (CEPHULAC) -19 Oral, QID, ity of solution 15 17:00: First dose [place] 00 (after Medical last Branch modificati on) on [facility] 12/17/21 at 1200, Until Discontinu ed, Routine furosemide 2021- No 40mg Take 40 mg Univers (LASIX) 40 12-17 05-19 by mouth ity of mg tablet 14:49: 00:00 every [place] 22 :00 morning Medical and Branch evening. torsemide Yes 80mg 80 mg, Univer s (SOAANZ) -19 Oral, ity of tablet 80 14:00: DAILY, [place] mg 00 First dose Medical on [facility] 12/17/21 at 0900, Until Discontinu ed, Routine lactulose 2021- Yes [id number] 15mL Take 15 mL Univers 10 gram/15 12-17 08-18 by mouth 4 it y of mL solution 00:00: 04:59 (four) [place] 00 :00 times Medical daily for Branch 90 days. furosemide 2021- Yes [id number] 60mg Take 1.5 Univers 40 mg 12-17 tablets by ity of tablet 00:00: 04:59 mouth [place] 00 :00 every Medical morning Branch and evening for 90 days. carvediloL 2021- Yes [id number] 3.125mg Take 1 Univers 3.125 mg 12-17 tablet by ity o f tablet 00:00: 04:59 mouth 2 [place] 00 :00 (two) Medical times Branch daily with meals for 90 days. triamcinolo 2021- Yes [id number] Apply to [facility] 12-17 area(s) 2 ity of acetonide 00:00: 04:59 (two) [place] 0.1 % 00 :00 times Medical ointment daily for Branch 30 days. carvedilol 2021- No [id number] 3.125mg Take 2.5 Univers 1.25 mg/mL 12-17 mL by ity of oral 00:00: 00:00 mouth 2 [place] suspension 00 :00 (two) Medical times Branch daily with meals for 90 days. enoxaparin Yes 40mg 40 mg, Unive rs (LOVENOX) 12-16 Subcutaneo ity of injection 22:00: [place], DAILY, [place] 40 mg 00 First dose Medical on Tue Branch 12/16/21 at 1700, Until Discontinu ed, Routine mupirocin Yes Univers (BACTROBAN 12-16 ity of OINT) 2 % 19:00: [place] skin 00 Medical ointment Branch lactulose 2021- No 15mL 15 mL, Unive rs (CEPHULAC) 12-16 Oral, TID, it y of solution 15 19:00: 14:29 First dose [place] mL 00 :17 (after Medical last Branch modificati on) on Tue12/16/21 at 1400, Until Discontinu ed, Routine torsemide 2021- No 60mg 60 mg, Unive rs (SOAANZ) 12-16 Oral, ONCE ity of tablet 60 15:45: 15:50 NOW, 1 [place] mg 00 :00 dose, On Medical Tue Branch 12/16/21 at 1045, Routine triamcinolo Yes Topical, [place] ne 5-18 BID, First ity of acetonide 14:45: dose on (KENALOG) Tue Medical 0.1 % 12/16/21 at [place] ointment 0945, Until Discontinu ed, Routine carvedilol Yes 3.125mg 3.125 mg, Univers (COREG) 18 Oral, BID ity of 1.25 mg/mL 14:30: MEALS, [place] oral 00 First dose Medical suspension on Tue [place] 3.125 mg 12/16/21 at 0930, Until Discontinu ed, Routine spironolact Yes 100mg 100 mg, [place] one 18 Oral, ity of (ALDACTONE) 14:00: DAILY, [place] tablet 100 00 First dose Med ical mg on Tue [place] 12/16/21 at 0900, Until Discontinu ed, Routine aspirin Yes 81mg 81 mg, Univers chewable 12-16 Oral, ity of tablet 81 14:00: DAILY, [place] mg 00 First dose Medical on Tue [place] 12/16/21 at 0900, Until Discontinu ed, Routine lactulose 2021- No 15mL 15 mL, Unive rs (CEPHULAC) 12-16 Oral, ity of solution 15 14:00: 14:13 DAILY, [place] mL 00 :06 First dose Medical on Tue [place] 12/16/21 at 0900, Until Discontinu ed, Routine furosemide 2021- No 40mg 40 mg, Univ ers (LASIX) 12-16 Oral, ity of tablet 40 14:00: 16:26 DAILY, [place] mg 00 :55 First dose Medical on Tue [place] 12/16/21 at 0900, Until Discontinu ed, Routine budesonide- Yes 2{puff} 2 Puff, Univers formoteroL -18 Inhalation ity of (SYMBICORT) 13:00: , BID, [place] 80-4.5 00 First dose Medical mcg/actuati (after Branch on inhaler last 2 Puff modificati on) on Tue12/16/21 at 0800, Until Discontinu ed gabapentin Yes 300mg 300 mg, Uni vers (NEURONTIN) 5-18 Oral, BID, it y of capsule 300 13:00: First dose [place] mg 00 on Tue Medical 12/16/21 at Branch 0800, Until Discontinu ed, Routine ipratropium Yes 3mL 3 mL, Unive rs -albuteroL 12-16 Inhalation ity of (DUONEB) 09:00: , Q4H, [place] 0.5 mg-3 00 First dose Medic al mg(2.5 mg (after Branch base)/3 mL last nebulizer modificati solution 3 on) on Tue mL 12/16/21 at 0400, Until Discontinu ed, Routine albuterol Yes 2.5mg 2.5 mg, Univ ers (PROVENTIL) 12-16 Inhalation it y of 2.5 mg /3 08:29: , Q6HPRN, [place] mL (0.083 37 Starting Medica l %) on Tue nebulizer 12/16/21 at solution 0329, 2.5 mg Until Discontinu ed, Routine, Shortness of Breath, Wheezing acetaminoph Yes 650mg 650 mg, [place] en 12-16 Oral, ity of (TYLENOL) 08:02: [facility], [place] tablet 650 27 Starting Medic al mg on Tue Branch 12/16/21 at 0302, Until Discontinu ed, Routine, Pain (scale 1-3) traMADoL 2021- Yes 50mg 50 mg, Univer s (ULTRAM) 12-16 Oral, ity of tablet 50 08:02: 08:01 Q8HPRN, [place] mg 27 :27 Starting Medical on Tue Branch 12/16/21 at 0302, Until Tue12/18/21 at 0301, Routine, Pain (scale 4-6) iohexol 2021- No [id number] 80mL 80 mL, Uni vers (OMNIPAQUE 12-16 Intravenou it y of 350 02:15: 02:15 s, ONCE, 1 [place] BULK-100 00 :00 dose, On Medical mL) Tue Branch injection 12/15/21 at 80 mL 2115, Routine furosemide 2021- No 80mg 80 mg, IV U nivers (LASIX) 12-16 Push, ity of injection 02:00: 01:23 ONCE, 1 [place] 80 mg 00 :00 dose, On Medical [facility] Branch 12/15/21 at 2100, LARRY aspirin 2021- No 325mg 325 mg, Unive rs tablet 325 12-15 Oral, ity of mg 23:00: 22:47 ONCE, 1 [place] 00 :00 dose, On Medical [facility] Branch 12/15/21 at 1800, STAT ipratropium 2021- No 3mL 3 mL, Univ ers -albuteroL 12-15 Inhalation it y of (DUONEB) 21:48: 22:47 , ONCE [place] 0.5 mg-3 00 :00 NOW, 1 Medical mg(2.5 mg dose, On Branch base)/3 mL Tue nebulizer 12/15/21 at solution 3 1700, LARRY mL sodium Yes 5mL 5 mL, Univers chloride 12-15 Intravenou ity o f (NS) 21:28: s, PRN, [place] injection 5 01 Starting Medi reynaldo mL on e Branch 12/15/21 at 1628, Until Discontinu ed, Routine, IV line flushing azithromyci 2021- Yes 500mg 500 mg, U nivers n 08 04-09 Oral, ity of (ZITHROMAX) 13:00: 00:59 ONCE, 1 [place] tablet 500 00 :00 dose, On Medic al mg 11/06/21 Branch at 0800, Routine
Reason for Anti-Infec tive: Empiric Therapy for Suspected Infection< br>Empiric Therapy Site: Respirator y
Durat ion of therapy: 72 hours albuterol 2021-0 Yes [id number] 2.5mg Inhale 3 Univers 2.5 mg /3 4-08 mL every 4 ity of mL (0.083 00:00: (four) [place] %) 00 hours as Medical nebulizer needed for Bran ch solution Wheezing or Shortness of Breath. ipratropium 2021-0 2021- No [id number] .5mg Inhale 2.5 Univers 0.02 % 4-08 05-18 mL every 4 ity of nebulizer 00:00: 00:00 (four) [place] solution 00 :00 hours as Medical needed for Branch Wheezing or Shortness of Breath. aspirin 2021- Yes [id number] 325mg Take 1 U nivers E.C. 325 mg 4 05-09 tablet by it y of EC tablet 00:00: 04:59 mouth [place] 00 :00 daily with Medical breakfast [place] for 30 days. cholecalcif 2021- Yes [id number] 2000U Take 2 Univers tere, - 05-09 tablets by ity of vitamin D3, 00:00: 04:59 [place] 25 mcg 00 :00 daily for Medical (1,000 30 days. Branch unit) tablet metoprolol 2021- Yes [id number] 25mg Take 1 Univers succinate - 05-09 tablet by ity of XL 25 mg 24 00:00: 04:59 [place] hr tablet 00 :00 daily for Medic al 30 days. Branch aspirin 2021- Yes [id number] 325mg Take 1 U nivers E.C. 325 mg 11-06-09 tablet by it y of EC tablet 00:00: 04:59 mouth [place] 00 :00 daily with Medical breakfast [place] for 30 days. cholecalcif 2021- Yes [id number] 2000U Take 2 Univers tere, - 05-09 tablets by ity of vitamin D3, 00:00: 04:59 mouth [place] 25 mcg 00 :00 daily for Medical (1,000 30 days. Branch unit) tablet metoprolol 2021- Yes [id number] 25mg Take 1 Univers succinate 11-06 05-09 tablet by ity of XL 25 mg 24 00:00: 04:59 [place] hr tablet 00 :00 daily for Medic al 30 days. Branch predniSONE 2021- Yes [id number] 50mg Take 1 Univers 50 mg 4- 04-12 tablet by ity of tablet 00:00: 04:59 mouth [place] 00 :00 every day Medical at 1200 Branch (noon) for 3 days. predniSONE 2021- Yes [id number] 50mg Take 1 Univers 50 mg 4- [...] Medical Branch cholecalcif 0 Yes 2000U 2,000 [facility] ers tere 4-07 Units, ity of (vitamin 15:00: Oral, [place] D3) tablet 00 DAILY, Medical 2,000 Units First dose Br anch on [place] 11/05/21 at 1000, Until Discontinu ed, Routine gabapentin 2021- No 300mg Take 300 U nivers 300 mg 11-05 04-07 mg by ity of capsule 14:03: 00:00 mouth 2 [place] 31 :00 (two) Medical times Branch daily. Unsure on dose ALBUTEROL 2021- No Inhale. [facility] ers INHALE 4-07 04-07 ity of 14:03: 00:00 [place] 31 :00 Medical Branch albuterol Yes [id number] 2{puff} Inhale 2 Univers 90 4-07 Puffs ity of mcg/actuati 00:00: every 6 [place] on inhaler 00 (six) Medical hours as Branch needed for Wheezing or Shortness of Breath. Budesonide Yes [id number] 1{puff} Inhale 1 Univers 90 4-07 Puff every ity of mcg/actuati 00:00: morning [place] on aerosol 00 and Medical powder evening. Branch HYDROcodone 0 Yes [id number] 1{tbl} Take 1 [place] -acetaminop 4-07 tablet by ity of hen 5-325 00:00: mouth [place] mg tablet 00 every 6 Medical (six) Branch hours as needed for Pain (scale 4-6). Indication s: acute pain albuterol Yes [id number] 2{puff} Inhale 2 Univers 90 4-07 Puffs ity of mcg/actuati 00:00: every 6 [place] on inhaler 00 (six) Medical hours as Branch needed for Wheezing or Shortness of Breath. albuterol Yes [id number] 2{puff} Inhale 2 Univers 90 4-07 Puffs ity of mcg/actuati 00:00: every 6 [place] on inhaler 00 (six) Medical hours as Branch needed for Wheezing or Shortness of Breath. Budesonide Yes [id number] 1{puff} Inhale 1 Univers 90 4-07 Puff every ity of mcg/actuati 00:00: morning [place] on aerosol 00 and Medical powder evening. Branch HYDROcodone Yes [id number] 1{tbl} Take 1 [place] -acetaminop 4-07 tablet by ity of hen 5-325 00:00: mouth [place] mg tablet 00 every 6 Medical (six) Branch hours as needed for Pain (scale 4-6). Indication s: acute pain Budesonide 2021- No [id number] 1{puff} Inhale 1 Univers 90 4-07 05-18 Puff every ity of mcg/actuati 00:00: 00:00 [place] aerosol 00 :00 and Medical powder evening. Branch HYDROcodone 2021- No [id number] 1{tbl} Take 1 U nivers -acetaminop 4-07 05-18 tablet by it y of hen 5-325 00:00: 00:00 mouth [place] mg tablet 00 :00 every 6 Medical (six) Branch hours as needed for Pain (scale 4-6). Indication s: acute pain gabapentin 2021- Yes [id number] 300mg Take 1 Univers 300 mg 4- 05-08 capsule by ity of capsule 00:00: 04:59 mouth 2 [place] 00 :00 (two) Medical times Branch daily for 30 days. gabapentin 2021- Yes [id number] 300mg Take 1 Univers 300 mg 4-07 05-08 capsule by ity of capsule 00:00: 04:59 mouth 2 [place] 00 :00 (two) Medical times Branch daily for 30 days. azithromyci 2021- Yes [id number] 500mg Take 1 Univers n 500 mg 4-07 04-10 tablet by ity o f tablet 00:00: 04:59 mouth [place] 00 :00 daily for Medical 2 doses. Branch azithromyci 2021- Yes [id number] 500mg Take 1 Univers n 500 mg 4-07 04-10 tablet by ity o f tablet 00:00: 04:59 mouth [place] 00 :00 daily for Medical 2 doses. Branch enoxaparin Yes 30mg 30 mg, Unive rs (LOVENOX) 11-04 Subcutaneo ity of injection 22:00: [place], DAILY, [place] 30 mg 00 First dose Medical on Tue11/04/21 at 1700, Until Discontinu ed, Routine sulfur 2021- No [id number] 5mL 5 mL, Univ ers hexafluorid 11-04 Intravenou i ty of e microsphr 17:45: 17:45 s, ONCE, 1 [place] (LUMASON) 00 :00 dose, On Medica l injection 5 Tue11/04/21 Br anch mL at 1245, Routine
media law faculty member approving Restricted medication : ERIC ARANA predniSONE Yes 50mg 50 mg, Unive rs (DELTASONE) 11-04 Oral, ity of tablet 50 17:00: QNOON, [place] mg 00 First dose Medical on Tue Branch 11/04/21 at 1200, Until Discontinu ed, Routine morpHINE No 2mg 2 mg, Slow [place] injection 2 11-04 IV Push, ity of mg 16:15: 15:22 ONCE, 1 [place] 00 :00 dose, On Medical Tue11/04/21 Branch at 1115, Routine HYDROcodone Yes 1{tbl} 1 tablet, Univers -acetaminop 11-04 Oral, ity of hen (NORCO 15:06: Q6HPRN, [place] 5) 5-325 mg 46 Starting Medi reynaldo tablet 1 on Tue Branch tablet 11/04/21 at 1006, Until Discontinu ed, Routine, Pain (scale 4-6) metoprolol Yes 25mg 25 mg, Unive rs succinate 11-04 Oral, ity of XL (TOPROL 14:00: DAILY, [place] XL) tablet 00 First dose Med ical 25 mg on Tue Branch 11/04/21 at 0900, Until Discontinu ed, Routine azithromyci 2021- No 500mg 500 mg, IV Univers n 4-06 04-07 Piggyback, ity of (ZITHROMAX) 09:00: 13:35 [...]
Durat ion of therapy: 7 days aspirin 2022-0 Yes 325mg 325 mg, Univer s E.C. 4-06 Oral, QAM ity of (ECOTRIN) 08:30: WITH [place] tablet 325 00 BREAKFAST, Med ical mg First dose Branch on Tue11/04/21 at 0330, Until Discontinu ed, Routine budesonide 2021-0 Yes .5mg 0.5 mg, Univ ers (PULMICORT - Inhalation ity of RESPULE) 08:00: , BID, [place] nebulizer 00 First dose Medi reynaldo solution on Tue Branch 0.5 mg 11/04/21 at 0300, Until Discontinu ed, Routine ipratropium 2021-0 Yes 3mL 3 mL, Unive rs -albuteroL 11-04 Inhalation ity of (DUONEB) 08:00: , Q4H, [place] 0.5 mg-3 00 First dose Medic al mg(2.5 mg (after Branch base)/3 mL last nebulizer reorder) solution 3 on Tue mL 11/04/21 at 0300, Until Discontinu ed, Routine gabapentin 2022-0 Yes 300mg 300 mg, Uni vers (NEURONTIN) 4-06 Oral, BID, it y of capsule 300 08:00: First dose [place] mg 00 on Tue Medical 11/04/21 at Branch 0300, Until Discontinu ed, Routine docusate 2022-0 Yes 100mg 100 mg, Unive rs (COLACE) -06 Oral, BID, ity o f capsule 100 08:00: First dose [place] mg 00 on Tue Medical 11/04/21 at Branch 0300, Until Discontinu ed, Routine ondansetron 2022-0 Yes 4mg 4 mg, Slow Univers (ZOFRAN 11-04 IV Push, ity of (PF)) 07:56: Q6HPRN, [place] injection 4 12 Starting Medi reynaldo mg on Wed Branch 11/04/21 at 0256, Until Discontinu ed, Routine, Nausea and Vomiting (N/V) ipratropium 2021- No 3mL 3 mL, Univ ers -albuteroL 11-04 Inhalation it y of (DUONEB) 04:45: 03:59 , ONCE, 1 [place] 0.5 mg-3 00 :00 dose, On Medical mg(2.5 mg e 11/03/21 Bran ch base)/3 mL at 2345, nebulizer Routine solution 3 mL methylpredn 2021- No 125mg 125 mg, IV Univers isolone sod 11-04 Piggyback, i ty of succ 04:45: 04:59 ONCE, 1 [place] (SOLU-MEDRO 00 :00 dose, On Medi reynaldo L) Tue11/03/21 Branch injection at 2345, 125 mg LARRY Immunizations Ordered Filled Immunization Date Status Comments [facility] e Immunization Name Name Influenza Virus 2021-12-17 Completed Universit y of Vaccine Quad IM, 00:00:00 [place] Me dical Preserv and ABX Branch Free 6 MO-64 YRS Vital Signs Vital Name Observation Time Observation Value Comments Source Heart rate 2021-12-18 00:28:00 85 /min [facility] Respiratory rate 2021-12-18 00:28:00 18 /min [facility] Oxygen saturation in 2021-12-18 00:28:00 98 /min [facility] Arterial blood by [place] Medi [facility] Pulse oximetry [place] Systolic blood 2021-12-17 22:10:00 116 mm[Hg] Univer tahiray of pressure [facility] Diastolic blood 2021-12-17 22:10:00 79 mm[Hg] [facility] Body temperature 2021-12-17 22:10:00 36.11 Lesley [facility] Body height 2021-12-16 09:25:[address] [facility] Body weight 2021-12-16 09:25:[address] [facility] BMI 2021-12-16 09:25:00 32.89 kg/m2 [facility] Respiratory rate 2021-11-05 21:30:00 20 /min [facility] Oxygen saturation in 2021-11-05 21:30:00 93 /min [facility] Arterial blood by [facility] Pulse oximetry [place] Systolic blood 2021-11-05 16:16:00 116 mm[Hg] [facility] Diastolic blood 2021-11-05 16:16:00 71 mm[Hg] [facility] Heart rate 2021-11-05 16:16:00 95 /min [facility] Body temperature 2021-11-05 16:16:00 36.28 Lesley [facility] Body weight 2021-11-05 09:32:[address] [facility] BMI 2021-11-05 09:32:00 31.05 kg/m2 [facility] Body height 2021-11-04 17:37:[address] [facility] Procedures Procedure Date / Time Performing Clinician Source Performed BASIC METABOLIC PANEL 2021-12-17 17:36:00 Javier Colbert [facility] (NA, K, CL, CO2, GLUCOSE, Medica l Branch BUN, CREATININE, CA) BASIC METABOLIC PANEL 2021-12-17 00:18:00 [facility] (NA, K, CL, CO2, GLUCOSE, Medica l [place] BUN, CREATININE, CA) HCV ANTIBODY 2021-12-16 22:26:00 Andria [facility] US ABDOMEN LIMITED WITH 2021-12-16 10:43:58 Leia Flor [facility] DOPPLER [facility] CT ABDOMEN PELVIS WO 2021-12-16 06:10:43 Boyd Claros [facility] CONTRAST [facility] CT THORAX W CONTRAST 2021-12-16 02:02:00 Brigida Ulloa [facility] LIPASE 2021-12-15 22:37:00 Gorge [facility] TROPONIN I 2021-12-15 22:37:00 Gorge [facility] THYROID STIMULATING 2021-12-15 [facility]:37[facility] 2021-12-15 22:37:00 Gorge [facility] ([id number]) [facility] CBC WITH DIFF 2021-12-15 22:37:00 Gorge [facility] N-TERMINAL PRO-BNP 2021-12-15 22:37:00 Laila [facility] XR CHEST 2 VW 2021-12-15 22:22:00 Laila [facility] MAGNESIUM 2021-11-05 16:31:00 America [facility] COMP. METABOLIC PANEL 2021-11-05 16:31:00 America edmond [facility] ([id number] LIPID PANEL ([id number])(TOTAL 2021-11-05 16:31:00 Pradeep Replaced by [facility] CHOLESTEROL, [facility] TRIGLYCERIDES, HDL) TROPONIN I 2021-11-05 09:50:00 America [facility] FREE T4 2021-11-05 09:50:00 [facility] 2021-11-05 09:50:00 [facility]-BNP 2021-11-05 09:50:00 N[facility] Cross [facility] TROPONIN I 2021-11-04 23:44:[address] [facility] TRANSTHORACIC ECHO (TTE) 2021-11-04 17:37:10 Nader Cross [facility] COMPLETE W/ CONTRAST Medical Bra nch PHOSPHORUS 2021-11-04 12:05:[address] [facility] URIC ACID 2021-11-04 12:05:[address] [facility] MAGNESIUM 2021-11-04 12:05:[address] [facility] TROPONIN I 2021-11-04 12:05:[address] [facility] LIPID PANEL ([id number])(TOTAL 2021-11-04 12:05:[address] [facility] CHOLESTEROL, Medical [place] TRIGLYCERIDES, HDL) VITAMIN B12, LEVEL 2021-11-04 08:48:00 Nader Cross [facility] TROPONIN I 2021-11-04 08:48:[address] [facility] SEDIMENTATION RATE 2021-11-04 08:48:00 [place] edmond [facility] VITAMIN D, 25-OH 2021-11-04 08:48:[address] [facility] PROCALCITONIN 2021-11-04 08:48:[address] [facility] URINE DRUG (IMMUNOASSAY) 2021-11-04 08:08:00 Nader Cross [facility] SCREEN URINALYSIS 2021-11-04 08:08:[address] [facility] URINE CULTURE 2021-11-04 08:08:[address] [facility] UREA NITROGEN, URINE 2021-11-04 08:08:00 Nader Cross [facility] SODIUM, URINE RANDOM 2021-11-04 08:08:00 America edmond [facility] PROTEIN CREAT RATIO URINE 2021-11-04 08:08:00 Nader Cross [facility] RESPIRATORY PANEL BY PCR 2021-11-04 08:08:00 Nader Cross [facility] COVID-19 (ID NOW RAPID 2021-11-04 04:03:00 Sheba Lott [facility] TESTING) Medical Branch LAB ONLY COVID 2021-11-04 04:03:00 Sheba Lott [facility] XR CHEST 1 VW 2021-11-04 02:57:00 Birgit Lemon [facility] ACUTE CARE ARTERIAL BLOOD 2021-11-04 02:57:00 [facility] LIPASE 2021-11-04 02:45:00 Birgit Lemon [facility] TROPONIN I 2021-11-04 02:45:00 Birgit Lemon [facility] COMP. METABOLIC PANEL 2021-11-04 02:45:00 Birgit Lemon [facility] ([id number]) [facility] CBC WITH DIFF 2021-11-04 02:45:00 Birgit Lemon [facility] GLYCOSYLATED HEMOGLOBIN 2021-11-04 02:45:00 Nader Cross [facility] (A1C) [facility] PROTHROMBIN TIME / INR 2021-11-04 02:45:00 Birgit [facility] ACTIVATED PARTIAL 2021-11-04 02:45:00 Birgit Lemon [facility] HB ECG ROUTINE & RHYTHM 2021-11-04 02:13:29 Birgit Lemon [facility] NOTICE OF PRIVACY 2021-11-04 01:59:17 Doctor Unassigned, [facility] PRACTICES [facility] CONSENT/REFUSAL FOR 2021-11-04 01:58:37 Doctor Unassigned, [facility] DIAGNOSIS AND TREATMENT [facility] Encounters Start End Encounter Admission Attending Care Care Encounter Source Date/Time Date/Time Type Type Clinicians Facility Department ID 2021-12-15 2021-12-17 Outpatient X [facility] [id number] Univers 15:52:00 21:23:00 [facility] 2021-12-15 2021-12-17 [facility]8 40.114 [id number] Univers 15:52:00 21:23:00 Boyd Claros 350.1.13.10 [facility] Lex Mehta [facility] 4.2.7.2.686 [place] Sarahi Victor [phone] Medical 095 Branch 2021-11-06 2021-11-06 Transition DONAVAN Davidson [id number] Univers 00:00:00 00:00:00 of Joanne LOYD 350.1.13.10 it y of [place] 4.2.7.2.686 [facility] [id number] [facility] [address] Branch 2021-11-03 2021-11-05 Outpatient X PONCHO ESTEFANYEMETERIO JULIETTE [id number] Univers 21:06:00 18:36:[address] [facility] 2021-11-03 2021-11-05 [facility] 1.2.840.11 [id number] Univers 21:06:00 18:36:00 Encounter Nader Cross 350.1.13.10 ity Alexis Carey JAS 4.2.7.2.686 [facility] [id number] [place] [id number] Branch Results Test Description Test Time Test Comments Results Result Comments Source BASIC METABOLIC PANEL (NA, K, CL, CO2, GLUCOSE, BUN, 2021-11 18:59:33 CREATININE, CA) Test Item Value Reference Range Interpretation Comme nts NA (test code = 6629299374) 138 mmol/L 135-145 K (test code = 3910409641) 4.2 mmol/L 3.5-5.0 CL (test code = 8601931520) 97 mmol/L 98-108 L CO2 TOTAL (test code = 6629937751) 38 mmol/L 23-31 H AGAP (test code = 3976500034) 2-16 BUN (test code = 0936451858) 16 mg/dL 7-23 GLUCOSE (test code = 8490122329) 71 mg/dL 70-110 CREATININE (test code = 0.65 mg/dL 0.60-1.25 4396192102) CALCIUM (test code = 7833421310) 8.8 mg/dL 8.6-10.6 eGFR (test code = 0511445430) mL/min/1.73m2 TIFFANY (test code = TIFFANY) Association of Glomerular Filtration Rate (GFR) and Staging of Kidney Disease* + +-------- + ------+| GFR (mL/min/1.73 m2) ?| With Kidney Damage ?| ?Without Kidney Damage+ +-- + +| ?>90 ?| ?Stage one ?| ? Normal ?+ +------- + -------+| ?60-89 ?| ?Stage two ?| ? Decreased GFR ? + +-------- + ------+| ?30-59 ?| ?Stage three ?| ? Stage three ? + +-------- + ------+| ?15-29 ?| ?Stage four ? | ? Stage four ?+ +------- + -------+| ?<15 (or dialysis) ? ?| ?Stage five ? | ? Stage five ?+ +------- + -------+ *Each stage assumes the associated GFR [...] or abnormalities in imaging tests). Lab Interpretation (test code = Abnormal 77316-0) [facility] (NA, K, CL, CO2, GLUCOSE, BUN, CREATININE, CA)2021-12-17 01:21:47 Test Item Value Reference Range Interpretation Comments NA (test code = 135 mmol/L 135-145 8927394855) K (test code = 3.7 mmol/L 3.5-5.0 0522648338) CL (test code = 100 mmol/L 98-108 7815174584) CO2 TOTAL (test code = 33 mmol/L 23-31 H 5420962700) AGAP (test code = 2-16 0083880431) BUN (test code = 14 mg/dL 7-23 0703786001) GLUCOSE (test code = 112 mg/dL 70-110 H 4986743414) CREATININE (test code = 0.65 mg/dL 0.60-1.25 7919882146) CALCIUM (test code = 8.3 mg/dL 8.6-10.6 L 5190668813) eGFR (test code = mL/min/1.73m2 8095148603) TIFFANY (test code = TIFFANY) Association of [...] tests). Lab Interpretation Abnormal (test code = 08625-8) [facility] [id number] 00:35:35 Test Item Value Reference Range Interpretation Comments HCV Ab (test code = Positive 73411-9) HCV Semi-Quantitative (test code = 91405-1) TIFFANY (test code = Positive for HCV antibody. TIFFANY) This specimen has been reflexed to qualitative PCR test and submitted to [facility]. ?A report will be issued by that laboratory. ?If any questions, contact the Clinical Chemistry Director precision lens grinder at [phone].APRI score < 0.5: Suggestive of little to no fibrosisAPRI score > 1.5: Suggestive of moderate to severe fibrosisAPRI score > 2.0: Highly suggestive of cirrhosis. [facility] STIMULATING [id number] 04:08:35 Test Item Value Reference Range Interpretation Comments TSH (test code = See_Comment [Automated message] 6767450315) The system [employer] generated this result transmitted ref erence range: 0.45 - 4 .70 mIU/L. The refe rence range was not u sed to interpret this result as normal/abnor mal. Lab Interpretation (test Normal code = 74976-4) [facility]MINAL [id number] 01:35:18 Test Item Value Reference Range Interpretation Comments NT-proBNP (test code 74 pg/mL See_Comment [Autom ated = 0574481676) message] The system which generated this result transmitted reference range : <=125. The reference range was not used to interpret this result as normal/abnormal . TIFFANY (test code = TIFFANY) Biotin has been reported to cause a negative bias, interpret results relative to patient's use of biotin. Lab Interpretation Normal (test code = 52689-3) [facility] Worth[facility]IN [id number] 00:16:20 Test Item Value Reference Interpretation Comments Range TROPONIN I (test 0.015 ng/mL See_Comment [Automated code = 9754613638) message] The system which generated this result [...] biotin. Lab Interpretation Normal (test code = 81208-7) [facility]. METABOLIC PANEL (80227)2021-12-15 23:32:43 Test Item Value Reference Range Interpretation Comments NA (test code = 134 mmol/L 135-145 L 5961586036) K (test code = 4.8 mmol/L 3.5-5.0 Slight 8307712075) hemolysis CL (test code = 99 mmol/L 98-108 5388847692) CO2 TOTAL (test code 28 mmol/L 23-31 = 1514485559) AGAP (test code = 2-16 9597325942) BUN (test code = 12 mg/dL 7-23 Slight 2157896461) hemolysis GLUCOSE (test code = 84 mg/dL 70-110 1853653407) CREATININE (test code 0.58 mg/dL 0.60-1.25 L = 1405252069) TOTAL BILI (test code 2.4 mg/dL 0.1-1.1 H = 1857072171) CALCIUM (test code = 8.7 mg/dL 8.6-10.6 8868580419) T PROTEIN (test code 6.4 g/dL 6.3-8.2 = 8074708420) ALBUMIN (test code = 3.4 g/dL 3.5-5.0 L 5849912104) ALK PHOS (test code = 101 U/L 34-122 Slight 2210288219) hemolysis ALTv (test code = 31 U/L 5-50 1742-6) AST(SGOT) (test code 60 U/L 13-40 H Slight = 8864941759) hemolysis eGFR (test code = mL/min/1.73m2 9074083152) TIFFANY (test code = TIFFANY) Association of Glomerular Filtration Rate (GFR) and Staging of Kidney Disease* + -----+ --------+ +| GFR (mL/min/1.73 m2) ?| With Kidney Damage ?| ?Without Kidney Damage+ +------- +---- --+| ?>90 ?| ?Stage one ?| ? Normal ?+ ------+ ---------+--------- +| ?60-89 ?| ?Stage two ?| ? Decreased GFR ? + -----+ --------+ +| ?30-59 ?| ?Stage three ?| ? Stage three ? + -----+ --------+ +| ?15-29 ?| ?Stage four ? | ? Stage four ?+ ------+ ---------+--------- +| ?<15 (or dialysis) ? ?| ?Stage five ? | ? Stage five ?+ ------+ ---------+--------- + *Each stage assumes the associated GFR level [...] tests). Lab Interpretation Abnormal (test code = 79069-8) [facility]IP[facility], [id number] 23:32:43 Test Item Value Reference Range Interpretation Comments LIPASE (test code = 8223750815) 155 U/L 0-220 Lab Interpretation (test code = Normal 98226-9) [facility] WorthCBC WITH [id number] 23:10:57 Test Item Value Reference Range Interpretation Comments WBC (test code = See_Comment L [Automated 9890-2) message] The sy stem which generated this result transmitted reference range : 4.20 - 10.70 10*3/?L. The reference range was not used to interpret this result as normal/abnormal . RBC (test code = See_Comment [Automated 789-8) message] The sy stem which generated this result transmitted reference range : 4.26 - 5.52 10*6/?L. The reference range was not used to interpret this result as normal/abnormal . HGB (test code = 13.7 g/dL 12.2-16.4 718-7) HCT (test code = 41.9 % 38.4-49.3 4544-3) MCV (test code = 95.2 fL 81.7-95.6 787-2) MCH (test code = 31.1 pg 26.1-32.7 785-6) MCHC (test code = 32.7 g/dL 31.2-35.0 786-4) RDW-SD (test code = 50.9 fL 38.5-51.6 46013-7) RDW-CV (test code = 14.6 % 12.1-15.4 788-0) PLT (test code = See_Comment L [Automated 777-3) message] The sy stem which generated this result transmitted reference range : 150 - 328 10*3/ ?L. The reference r laura was not used to interpret this result as normal/abnormal . MPV (test code = 9.5 fL 9.8-13.0 L 34143-5) IPF % (test code = 1.3 % 1.2-10.7 Platelet count 3375218183) measured by fluorescence method. NRBC/100 WBC (test See_Comment [Automat ed code = 4508525930) message] The system which generated this result transmitted reference range : 0.0 - 10.0 /100 WBCs. The refer ence range was not u sed to interpret th is result as normal/abnormal . NRBC x10^3 (test code <0.01 See_Comment [Auto mated = 3065635437) message] The s ystem which generated this result transmitted reference range : 10*3/?L. The reference range was not used to interpret this result as normal/abnormal . GRAN MAT (NEUT) % 55.2 % (test code = 770-8) IMM GRAN % (test code 1.00 % = 8100690155) LYMPH % (test code = 25.7 % 736-9) MONO % (test code = 14.7 % 5905-5) EOS % (test code = 2.9 % 713-8) BASO % (test code = 0.5 % 706-2) GRAN MAT x10^3(ANC) 2.30 10*3/uL 1.99-6.95 (test code = 1977211370) IMM GRAN x10^3 (test 0.04 10*3/uL 0.00-0.06 code = 5201684634) LYMPH x10^3 (test code 1.07 10*3/uL 1.09-3.23 L = 731-0) MONO x10^3 (test code 0.61 10*3/uL 0.36-1.02 = 742-7) EOS x10^3 (test code = 0.12 10*3/uL 0.06-0.53 711-2) BASO x10^3 (test code <0.03 0.01-0.09 = 704-7) Lab Interpretation Abnormal (test code = 35323-6) [facility] WorthLIPID PANEL (43007)(TOTAL CHOLESTEROL, TRIGLYCERIDES, HDL)2021-11-05 17:05:42 Test Item Value Reference Range Interpretation Comments CHOL (test code = 186 mg/dL 120-200 8149048078) HDL (test code = 45 mg/dL >40 1871410261) HDLC RATIO (test code = See_Comment [Au tomated message] 9878776704) The system [employer] generated this result transmit michael reference range : <=5.0. The refe rence range was not u sed to interpret th is result as normal/abnormal . TRIG (test code = 64 mg/dL 30-170 5356474353) LDL CHOL (test code = 128 mg/dL See_Comment [Auto mated message] 22590-4) The system [employer] generated this result transmit michael reference range : <=160. The refe rence range was not u sed to interpret th is result as normal/abnormal . VLDL (test code = 13 mg/dL 5-60 4677053373) Lab Interpretation (test Normal code = 11805-1) [facility]. METABOLIC PANEL (91429)2021-11-05 17:05:21 Test Item Value Reference Range Interpretation Comments NA (test code = 138 mmol/L 135-145 4501899823) K (test code = 4.6 mmol/L 3.5-5.0 9672202423) CL (test code = 104 mmol/L 98-108 1000972423) CO2 TOTAL (test code = 30 mmol/L 23-31 9669848580) AGAP (test code = 2-16 7854395056) BUN (test code = 20 mg/dL 7-23 4959646889) GLUCOSE (test code = 102 mg/dL 70-110 5596197381) CREATININE (test code = 0.63 mg/dL 0.60-1.25 4866193120) TOTAL BILI (test code = 1.2 mg/dL 0.1-1.1 H 3496827220) CALCIUM (test code = 9.0 mg/dL 8.6-10.6 0407384129) T PROTEIN (test code = 6.6 g/dL 6.3-8.2 6286256286) ALBUMIN (test code = 3.2 g/dL 3.5-5.0 L 0705206295) ALK PHOS (test code = 75 U/L 34-122 7171921669) ALTv (test code = 35 U/L 5-50 1742-6) AST(SGOT) (test code = 39 U/L 13-40 4193653149) eGFR (test code = mL/min/1.73m2 5671915320) TIFFANY (test code = TIFFANY) Association of [...] tests). Lab Interpretation Abnormal (test code = 10646-4) [facility]NESIUM2022-04-07 17:05:21 Test Item Value Reference Range Interpretation Comments MAGNESIUM (test code = 6149675991) 1.9 mg/dL 1.7-2.4 Lab Interpretation (test code = Normal 52161-3) [facility] WorthTHYROID STIMULATING [id number] 12:35:38 Test Item Value Reference Range Interpretation Comments TSH (test code = See_Comment [Automated message] 6359119608) The system [employer] generated this result transmitted ref erence range: 0.45 - 4 .70 mIU/L. The refe rence range was not u sed to interpret this result as normal/abnor mal. Lab Interpretation (test Normal code = 53650-4) [facility] [id number] 12:22:17 Test Item Value Reference Range Interpretation Comments FREE T4 (test code = See_Comment [Autom ated message] 8340073827) The system [employer] generated this result transmitted ref erence range: 0.78 - 2 .20 ng/dL:. The ref erence range was not u sed to interpret this result as normal/abnor mal. Lab Interpretation (test Normal code = 94351-4) [facility]TRAN[facility] [id number] 12:16:59 Test Item Value Reference Interpretation Comments Range TROPONIN I (test 0.026 ng/mL See_Comment [Automated code = 6022709608) message] The system which generated this result [...] biotin. Lab Interpretation Normal (test code = 12037-1) [facility] WorthN-TERMINAL [id number] 12:13:58 Test Item Value Reference Range Interpretation Comments NT-proBNP (test code 228 pg/mL See_Comment H [Autom ated = 8210361439) message] The system which generated this result transmitted reference range : <=125. The reference range was not used to interpret this result as normal/abnormal . TIFFANY (test code = TIFFANY) Biotin has been reported to cause a negative bias, interpret results relative to patient's use of biotin. Lab Interpretation Abnormal (test code = 22891-2) [facility] WorthTransthoracic echo (TTE)2021-11-05 00:59:55 Test Item Value Reference Range Interpretation Comments LVIDD (test code = 4.50 cm 3468110903) IVS (test code = 1.10 cm 6937196370) Interventricular Septum 1.10 cm Diastolic Thickness by 2D (test code = 9303145) LVPWD (test code = 1.24 cm 8628961698) PW (test code = 1.24 cm 0.6-1.5 3110140918) LVOT diameter (test code 1.92 cm = 9171896574) ACS (test code = 1.82 cm 4372359750) Ao root annulus (test 3.5 cm code = 0492213081) Ao root diam (test code 3.50 cm = 7694226760) Aortic root (test code = 3.5 cm 7375654294) LA size (test code = 4.6 cm 7339781599) E wave decelartion time 0.21 s (test code = 6518857770) MV Peak E William (test code 64.9 cm/s = 9232442564) MV Peak A William (test code 83.8 cm/s = 4443263699) E/A ratio (test code = ratio 8773355085) MV Prop V (test code = 65.80 cm/s 3114545417) Tapse (test code = 1.92 cm 6824259175) LVOT stroke volume (test 67.60 cm3 code = 0114776578) LVOT peak william (test code 110.2 cm/s = 0321372984) LVOT mn grad (test code mmHg = 8181340032) AV LVOT peak gradient mmHg (test code = 5577425642) LVOT peak VTI (test code 23.3 cm = 7372533663) LV V1 mean (test code = 62.80 cm/s 0505008354) Aortic valve mean 129.2 cm/s velocity (test code = 6923600800) Ao peak william (test code = 230.1 cm/s 4696987228) Ao VTI (test code = 39.0 cm 9286765423) AV area by cont VTI 1.7 cm2 (test code = 9139879971) AV area peak william (test 1.4 cm2 code = 0260614843) Ao max PG (test code = 21.20 mm[Hg] 6626216347) AV peak gradient (test mmHg code = 3561949121) AV valve area (test code 1.73 cm2 = 2384924556) AV mean gradient (test mmHg code = 5196818257) TR Peak William (test code = 233.7 cm/s 0939344350) Triscuspid Valve mmHg Regurgitation Peak Gradient (test code = 8638863822) EF(Teich) (test code = 60.40 % 4906596025) LVIDS (test code = 3.10 cm 6286742287) FS (test code = 32 % 3621408444) EF - 2D (test code = 60.40 % 93393734) Radiology Study observation (narrative) (test code = 52977-7) TIFFANY (test code = TIFFANY) ?Left?Ventricle: Left [...] (99.8 kg) 2.23 sq meters 130/95 88 [facility] WorthSCOTT [id number] 00:28:36 Test Item Value Reference Interpretation Comments Range TROPONIN I (test 0.015 ng/mL See_Comment [Automated code = 6479248905) message] The system which generated this result [...] biotin. Lab Interpretation Normal (test code = 21841-9) [facility] WorthVITAMIN D, [id number] 17:50:34 Test Item Value Reference Range Interpretation Comments VIT D 25OH (test code = 19 ng/mL 25-80 L 53237-2) TIFFANY (test code = TIFFANY) Deficiency: <20 ng/mLInsufficiency: 20-24 ng/mLOptimal: 25-80 ng/mL Lab Interpretation (test Abnormal code = 17751-6) [facility] WorthPROCALCITONIN2022-04-06 16:54:29 Test Item Value Reference Range Interpretation Comments Procalcitonin (test 0.03 ng/mL <0.07 code = 0890904692) TIFFANY (test code = TIFFANY) INTERPRETATION OF [...] lung abscess/empyema. For further information please refer to:[email or web address] Lab Interpretation Normal (test code = 93850-8) [facility] WorthVITAMIN B12, [id number] 16:39:51 Test Item Value Reference Range Interpretation Comments VIT B12 (test code = 636 pg/mL 240-930 9503995645) TIFFANY (test code = TIFFANY) Biotin has been reported to cause a positive bias, interpret results relative to patient's use of biotin. Lab Interpretation (test Normal code = 90338-6) [facility] WorthLIPID PANEL (05403)(TOTAL CHOLESTEROL, TRIGLYCERIDES, HDL)2021-11-04 15:21:56 Test Item Value Reference Range Interpretation Comments CHOL (test code = 183 mg/dL 120-200 1264318949) HDL (test code = 40 mg/dL >40 L 2463303921) HDLC RATIO (test code = See_Comment [Au tomated message] 0813733423) The system [employer] generated this result transmit michael reference range : <=5.0. The refe rence range was not u sed to interpret th is result as normal/abnormal . TRIG (test code = 57 mg/dL 30-170 1195705921) LDL CHOL (test code = 132 mg/dL See_Comment [Auto mated message] 74656-4) The system [employer] generated this result transmit michael reference range : <=160. The refe rence range was not u sed to interpret th is result as normal/abnormal . VLDL (test code = 11 mg/dL 5-60 8614809935) Lab Interpretation (test Abnormal code = 32268-7) [facility] WorthMAGNESIUM2022-04-06 15:21:56 Test Item Value Reference Range Interpretation Comments MAGNESIUM (test code = 5090425844) 1.6 mg/dL 1.7-2.4 L Lab Interpretation (test code = Abnormal 32497-0) [facility] WorthPHOSPHORUS2022-04-06 15:21:36 Test Item Value Reference Range Interpretation Comments PHOSPHORUS (test code = 8667394428) 3.1 mg/dL 2.5-5.0 Lab Interpretation (test code = Normal 70601-8) [facility] WorthURIC [id number] 15:21:16 Test Item Value Reference Range Interpretation Comments URIC ACID (test code = 3870527147) 4.4 mg/dL 3.6-8.0 Lab Interpretation (test code = Normal 54118-6) [facility] WorthTROPONIN [id number] 13:34:13 Test Item Value Reference Interpretation Comments Range TROPONIN I (test 0.038 ng/mL See_Comment H [Automated code = 1993636950) message] The system which generated this result [...] biotin. Lab Interpretation Abnormal (test code = 98993-7) [facility] WorthSEDIMENTATION [id number] 11:19:15 Test Item Value Reference Range Interpretation Comments ESR (test code = See_Comment [Automated message] 3037042407) The system [employer] generated this result transmitted ref erence range: 0 - 10 m m/HR. The reference r laura was not used to interpret this result as normal/abnor mal. Lab Interpretation (test Normal code = 33470-7) [facility] WorthTROPONIN [id number] 10:43:39 Test Item Value Reference Interpretation Comments Range TROPONIN I (test 0.037 ng/mL See_Comment H Hemolyzed code = 0458852949) specimen [Automated message] The system which generated [...] biotin. Lab Interpretation Abnormal (test code = 76153-9) [facility] WorthGLYCOSYLATED HEMOGLOBIN (A1C)2021-11-04 09:01:59 Test Item Value Reference Range Interpretation Comments HGB A1C (test code = 6.0 % 4.0-5.7 H 4548-4) TIFFANY (test code = TIFFANY) Reference RangesNormal: <5.7%Prediabetes: 5.7 - 6.4%Diabetes: > 6.5% Lab Interpretation (test Abnormal code = 85465-1) [facility] WorthTROPONIN [id number] 03:17:54 Test Item Value Reference Interpretation Comments Range TROPONIN I (test 0.035 ng/mL See_Comment H [Automated code = 1003921903) message] The system which generated this result [...] biotin. Lab Interpretation Abnormal (test code = 31438-1) [facility] WorthCOMP. METABOLIC PANEL (32660)2021-11-04 03:06:14 Test Item Value Reference Range Interpretation Comments NA (test code = 136 mmol/L 135-145 8758790574) K (test code = 4.4 mmol/L 3.5-5.0 9696668517) CL (test code = 99 mmol/L 98-108 6352389197) CO2 TOTAL (test code = 29 mmol/L 23-31 8889173260) AGAP (test code = 2-16 1263064294) BUN (test code = 22 mg/dL 7-23 2478651238) GLUCOSE (test code = 164 mg/dL 70-110 H 7399083895) CREATININE (test code = 0.72 mg/dL 0.60-1.25 7357391275) TOTAL BILI (test code = 1.8 mg/dL 0.1-1.1 H 6516386005) CALCIUM (test code = 9.3 mg/dL 8.6-10.6 7508064486) T PROTEIN (test code = 7.5 g/dL 6.3-8.2 4937045504) ALBUMIN (test code = 3.7 g/dL 3.5-5.0 1104701329) ALK PHOS (test code = 98 U/L 34-122 0299764387) ALTv (test code = 35 U/L 5-50 1742-6) AST(SGOT) (test code = 48 U/L 13-40 H 1314061730) eGFR (test code = mL/min/1.73m2 3319607917) TIFFANY (test code = TIFFANY) Association of [...] tests). Lab Interpretation Abnormal (test code = 36579-0) [facility] WorthLIPASE, [id number] 03:05:54 Test Item Value Reference Range Interpretation Comments LIPASE (test code = 7315146047) 253 U/L 0-220 H Lab Interpretation (test code = Abnormal 18006-3) [facility] WorthaPTT2022-04-06 03:03:13 Test Item Value Reference Range Interpretation Comments APTT Patient (test See_Comment [Automat ed code = 3173-2) message] The system which generated this result transmitted reference range : 23 - 38 Seconds . The reference range was not used to interpr et this result as normal/abnormal . TIFFANY (test code = TIFFANY) The [facility] patient population mean normal value for aPTT is 30 seconds. Lab Interpretation Normal (test code = 46567-2) [facility] WorthPROTHROMBIN TIME / [id number] 03:01:34 Test Item Value Reference Range Interpretation [...] tions. Lab Interpretation (test Abnormal code = 49092-1) [facility] WITH [id number] 02:55:12 Test Item Value Reference Range Interpretation Comments WBC (test code = See_Comment [Automated 3590-2) message] The sy stem which generated this result transmitted reference range : 4.20 - 10.70 10*3/?L. The reference range was not used to interpret this result as normal/abnormal . RBC (test code = See_Comment H [Automated 459-8) message] The sy stem which generated this [...] RDW-SD (test code = 50.4 fL 38.5-51.6 96870-5) RDW-CV (test code = 14.8 % 12.1-15.4 788-0) PLT (test code = See_Comment L [Automated 777-3) message] The sy stem which generated this result transmitted reference range : 150 - 328 10*3/ ?L. The reference r laura was not used to interpret this result as normal/abnormal . MPV (test code = 10.3 fL 9.8-13.0 35980-1) NRBC/100 WBC (test See_Comment [Automat ed code = 7620232469) message] The system which generated this result transmitted reference range : 0.0 - 10.0 /100 WBCs. The refer ence range was not u sed to interpret th is result as normal/abnormal . NRBC x10^3 (test code <0.01 See_Comment [Auto mated = 9657087658) message] The s ystem which generated this result transmitted reference range : 10*3/?L. The reference range was not used to interpret this result as normal/abnormal . GRAN MAT (NEUT) % 72.3 % (test code = 770-8) IMM GRAN % (test code 1.70 % = 8155085015) LYMPH % (test code = 16.5 % 736-9) MONO % (test code = 8.2 % 5905-5) EOS % (test code = 1.0 % 713-8) BASO % (test code = 0.3 % 706-2) GRAN MAT x10^3(ANC) 7.35 10*3/uL 1.99-6.95 H (test code = 8491351871) IMM GRAN x10^3 (test 0.17 10*3/uL 0.00-0.06 H code = 7118797384) LYMPH x10^3 (test code 1.67 10*3/uL 1.09-3.23 = 731-0) MONO x10^3 (test code 0.83 10*3/uL 0.36-1.02 = 742-7) EOS x10^3 (test code = 0.10 10*3/uL 0.06-0.53 711-2) BASO x10^3 (test code 0.03 10*3/uL 0.01-0.09 = 704-7) Lab Interpretation Abnormal (test code = 02009-9) [facility]
--- NOTE | 2021-12-30 08:57 | RAD REPORT ---
EXAM DESCRIPTION: RAD - Chest Single View - 12/30/2021 8:42 am CLINICAL HISTORY: CHEST PAIN Chest pain. COMPARISON: Chest Single View dated 12/09/2021; Chest Single View dated 12/07/2021; Chest Single View d ated 12/05/2021; Chest Single View dated 11/26/2021 FINDINGS: Portable technique limits examination quality. The lungs are mildly emphysematous but grossly clear. Trace left pleural fluid. The heart is normal i n size. No displaced fractures.
[2021-12-30 09:18] LABS: Hematocrit 44.9 % (39.6-49.0); MPV 7.2 fL (7.6-11.3); RBC Red Blood Cell Count 4.84 M/uL (4.33-5.43)
[2021-12-30] MEDS ORDERED: ASPIRIN 81 MG CHEWABLE TABLET ONE (09:18)
[2021-12-30] MEDS ORDERED: METHYLPREDNISOLONE 125 MG INJ ONE (09:18)
[2021-12-30] MEDS ORDERED: FENTANYL CITR 100 MCG/2 ML ONE (09:19)
[2021-12-30] MEDS ORDERED: LEVALBUTEROL 1.25 MG/3 ML NEB ONE (09:20)
[2021-12-30 09:25] LABS: Protime INR 1.34
[2021-12-30 10:00] LABS: Albumin 3.1 g/dL (3.4-5.0); Bilirubin Direct 0.6 mg/dL (0-0.2); Bilirubin Total 1.6 mg/dL (0.2-1.0); Magnesium 1.6 mg/dL (1.8-2.4); Potassium 3.3 mmol/L (3.5-5.1); Protein, Total 7.2 g/dL (6.4-8.2); Troponin High Sensitivity 11.6 pg/mL (<58.9)
[2021-12-30] MEDS ORDERED: MAGNESIUM SULFATE 1 gm IVPB 1 GM/100 ML BAG IV ONE (10:25)
--- NOTE | 2021-12-30 10:43 | RAD REPORT ---
EXAM DESCRIPTION: CT - Angio Aorta For Dissection - 12/30/2021 10:26 am CLINICAL HISTORY: Chest pain radiating to the back. chest pain radiating to back COMPARISON: No comparisons TECHNIQUE: CT angiography of the aorta was performed with MIPs. All CT scans are performed using dose optimization technique as appropriate and may include automated exposure control or mA/KV adjustment according to patient size. FINDINGS: A left aortic arch is present with bovine pattern of the great vessels.No acute aortic fin ding is seen such as aneurysm, penetrating ulcer or dissection. The celiac axis, SMA, DANIA and renal arteries are patent. No evidence of pulmonary embolism. Moderate diffuse COPD is present. Cirrhotic liver is present. There are multiple enhancing lesions in the liver particularly the right lobe, largest measuring 3.7 cm.The spleen is normal sized.Prominent perisplenic venous collaterals ar e present. The adrenal glands and right kidney are within normal limits. Punctate calculus inferior l eft kidney without hydronephrosis. No bowel obstruction, free fluid or abscess.Normal appendix.No pathologic enlarged lymphadenopathy id entified.Small bilateral inguinal hernias containing fat. Evidence of previous left inguinal surgical repair. No lytic or blastic bone lesion. IMPRESSION: No acute aortic finding is demonstrated. Cirrhotic liver with multiple enhancing liver lesions present particularly in the right lobe which co uld indicate regenerating nodules versus multifocal HCC. Recommend nonemergent MRI liver protocol fol lowup. Moderate COPD.
[2021-12-30] MEDS ORDERED: POTASSIUM 25 MEQ EFFERV TAB ONE (11:51)
[2021-12-30] MEDS ORDERED: MORPHINE 4 MG/ML SYR ONE (12:23)
[2021-12-30] MEDS ORDERED: METOPROLOL TAR 25 MG TAB ONE (12:23)
--- NOTE | 2021-12-30 14:23 | EDPHYS ---
Physician Documentation [facility] Name: Joseph Quach Age: 61 yrs Sex: Male : 1960 Arrival Date: 12/30/2021 Time: 07:39 Bed 13 Private MD: ED Physician Orestes Osorio HPI: 12/30 08:18 This 61 yrs old Male presents to ER via Ambulatory with complaints of Breathing cp Difficulty, Back Pain. 08:18 The patient has shortness of breath at rest. cp 08:18 Onset: The symptoms/episode began/occurred today. Duration: The symptoms are cp continuous, and are steadily getting worse. Associated signs and symptoms: Pertinent positives: chest pain, chronic back pain times 3 months, Pertinent negatives: diaphoresis, fever, vomiting. Severity of symptoms: in the emergency department the symptoms are unchanged despite EMS interventions. Patient reports she was scheduled to have xrays of back today, but was unable to make it to appointment due to pain. Historical: - Allergies: 07:56 Fish Containing Products; ss - PMHx: 07:56 angina pectoris; cirrhosis of liver; COPD; High Cholesterol; Hypertensive disorder; ss Myocardial infarction; - Immunization history:: Client reports having NOT received the Covid vaccine. - Social history:: Smoking status: Patient/guardian denies using tobacco, but has a distant history of tobacco abuse. ROS: 08:20 Constitutional: Negative for body aches, chills, fever, poor PO intake. cp 08:20 Cardiovascular: Positive for chest pain, Negative for palpitations. cp 08:20 Respiratory: Positive for cough, "sounds productive", shortness of breath, at rest. Negative for wheezing. 08:20 Abdomen/GI: Negative for abdominal pain, vomiting, diarrhea, constipation. 08:20 Eyes: Negative for injury, pain, redness, and discharge. cp 08:20 ENT: Negative for drainage from ear(s), ear pain, sore throat, difficulty swallowing, cp difficulty handling secretions. 08:20 Neck: Negative for pain with movement, pain at rest, stiffness. 08:20 Back: Positive for pain at rest, pain with movement. 08:20 Neuro: Negative for altered mental status, dizziness, headache, syncope, weakness. 08:20 All other systems are negative. Exam: 08:25 Constitutional: The patient appears alert, awake, non-diaphoretic, non-toxic, well cp developed, well nourished, in obvious distress, mildly distressed, uncomfortable. 08:25 Head/Face: Normocephalic, atraumatic. cp 08:25 Eyes: Periorbital structures: appear normal, Conjunctiva: normal, no exudate, no injection, Sclera: no appreciated abnormality, Lids and lashes: appear normal, bilaterally. 08:25 ENT: External ear(s): are unremarkable, Nose: is normal, Mouth: Lips: moist, Oral mucosa: pink and intact, moist, Posterior pharynx: Airway: no evidence of obstruction, patent. 08:25 Neck: ROM/movement: is normal, is supple, without pain, no range of motions limitations. 08:25 Chest/axilla: Inspection: normal, Palpation: is normal, no crepitus, no tenderness. 08:25 Cardiovascular: Rate: tachycardic, Rhythm: regular, Edema: is not appreciated, JVD: is not appreciated. 08:25 Respiratory: mild respiratory distress is noted, Respirations: labored breathing, that is mild, Breath sounds: bronchial sounds, that are mild, are heard diffusely, rhonchi, are not appreciated, stridor, is not appreciated, wheezing: is not appreciated. 08:25 Abdomen/GI: Inspection: abdomen appears normal, Bowel sounds: active, all quadrants, Palpation: soft, in all quadrants, nontender, in all quadrants, rebound tenderness, is not appreciated, involuntary guarding, is not appreciated. 08:25 Back: pain, that is moderate, ROM is painful, with all movement, CVA tenderness, is absent, vertebral tenderness, is not appreciated. 08:25 Skin: no rash present. 08:25 Neuro: Orientation: to person, place \\T\\ time. Mentation: is normal, Motor: moves all fours, strength is normal, Sensation: is normal. 09:02 ECG was reviewed by the Attending Physician. cp Vital Signs: 07:54 BP 117 / 63; Pulse 113; Resp 24; Temp 98.9(TE); Pulse Ox 95% on 2 lpm NC; Weight 113.4 ss kg; Height 5 ft. 11 in. (180.34 cm); Pain 10/10; 09:30 BP 133 / 86; Pulse 114; Resp 18 S; Pulse Ox 96% on Nebulizer Mask; Pain 9/10; jg9 11:45 BP 124 / 95; Pulse 115; Resp 20 S; Pulse Ox 95% on 2 lpm NC; Pain 8/10; jg9 13:00 BP 109 / 76; Pulse 81; Resp 17 S; Pulse Ox 93% on 2 lpm NC; jg9 14:00 BP 118 / 90; Pulse 81; Resp 18 S; Pulse Ox 96% on 2 lpm NC; jg9 07:54 Body Mass Index 34.87 (113.40 kg, 180.34 cm) ss MDM: 08:08 Patient medically screened. cp 13:33 Response to treatment: the patient's symptoms have markedly improved after treatment, cp Pain improved, patient observed texting on phone. No signs of respiratory distress. 14:20 Data reviewed: vital signs, nurses notes, lab test result(s), EKG, radiologic studies, cp CT scan, plain films. 14:20 Differential diagnosis: Myocardial Infarction pneumonia, Pneumothorax pulmonary edema, cp Pulmonary Embolism Sepsis Unstable Angina aortic aneurysm. Test interpretation: by ED physician or midlevel provider: ECG, plain radiologic studies. 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 ED course: VSS. Patient had normal cardiac cath performed at this hospital 11/20/2021. Pain improved with meds. Will discharge to home for continued monitoring. 12/30 08:18 Order name: Basic Metabolic Panel; Complete Time: 10:04 cp 12/30 10:04 Interpretation: Normal except: K 3.3; GLUC 255. cp 12/30 08:18 Order name: CBC with Diff; Complete Time: 09:30 cp 12/30 09:30 Interpretation: Normal except: MPV 7.2. cp 12/30 08:18 Order name: LFT's; Complete Time: 10:04 cp 12/30 11:37 Interpretation: Normal except: BILIT 1.6; BILID 0.6; ALB 3.1; GLOB 4.1; A/G 0.8. cp / 08:18 Order name: Magnesium; Complete Time: 10:04 cp 12/30 11:38 Interpretation: Abnormal: MG 1.6. cp 12/30 08:18 Order name: NT PRO-BNP; Complete Time: 10:04 cp 12/30 08:18 Order name: PT-INR; Complete Time: 09:30 cp 12/30 09:36 Interpretation: Reviewed. cp 12/30 08:18 Order name: Troponin HS; Complete Time: 10:04 cp 12/30 08:18 Order name: XRAY Chest (1 view); Complete Time: 09:30 cp 12/30 09:37 Interpretation: Report review. cp 12/30 10:06 Order name: CT Aorta for Dissection; Complete Time: 10:47 cp 12/30 10:48 Interpretation: Report reviewed. cp 12/30 12:10 Order name: Lipase cp 12/30 12:10 Order name: LAB Add On cp 12/30 12:49 Order name: Troponin High Sensitivity cp 12/30 08:18 Order name: EKG; Complete Time: 08:19 cp 12/30 08:18 Order name: Cardiac monitoring; Complete Time: 09:10 cp 12/30 08:18 Order name: EKG - Nurse/Tech; Complete Time: 09:10 cp 12/30 08:18 Order name: IV Saline Lock; Complete Time: 09:10 cp 12/30 08:18 Order name: Labs collected and sent; Complete Time: 09:10 cp 12/30 08:18 Order name: O2 Per Protocol; Complete Time: 09:10 cp 12/30 08:18 Order name: O2 Sat Monitoring; Complete Time: 09:10 cp EC:02 Rate is 108 beats/min. Rhythm is regular. UT interval is normal. QRS interval is cp normal. QT interval is normal. T waves are Inverted in lead aVR. Interpreted by me. Reviewed by me. Administered Medications: 09:15 Drug: Xopenex (levalbuterol) (3) 1.25 mg Route: Inhalation; jg9 10:11 Follow up: Response: No adverse reaction jg9 09:17 Drug: SOLU-Medrol (methylPrednisoLONE) 125 mg Route: IVP; Site: right wrist; jg9 10:11 Follow up: Response: No adverse reaction jg9 09:20 Drug: fentaNYL (PF) 25 mcg Route: IVP; Site: right wrist; jg9 10:11 Follow up: Response: No adverse reaction; Pain is decreased jg9 09:21 Not Given (patient took 1 full dose aspirin this morning prior to comingg): Aspirin jg9 Chewable Tablet 324 mg PO once; 81 mg tablets x 4 10:27 Drug: Magnesium Sulfate 1 grams Route: IVPB; Infused Over: 1 hrs; Site: right wrist; jg9 11:30 Follow up: IV Status: Completed infusion; IV Intake: 100ml jg9 11:46 Drug: Potassium Effervescent Tablet 50 mEq Route: PO; jg9 12:14 Follow up: Response: No adverse reaction jg9 12:20 Drug: morphine 4 mg Route: IVP; Infused Over: 4 mins; Site: right wrist; jg9 13:27 Follow up: Response: No adverse reaction; Pain is decreased jg9 12:21 Drug: Metoprolol 25 mg Route: PO; jg9 13:28 Follow up: Response: No adverse reaction; Blood pressure is lowered jg9 Disposition: 14:42 Co-signature as Attending Physician, Orestes Osorio MD I agree with the assessment and kdr plan of care. Disposition Summary: 12/30/21 14:22 Discharge Ordered Location: Home cp Problem: an acute exacerbation cp Symptoms: have improved cp Condition: Stable cp Diagnosis - COPD/ Chronic obstructive pulmonary disease with (acute) exacerbation cp - Dorsalgia, unspecified cp - Chest pain, unspecified cp Followup: cp - With: Davin Thomas DO - When: 2 - 3 days - Reason: back pain Followup: cp - With: Richardson Douglass MD - When: 2 - 3 days - Reason: COPD exacerbation Discharge Instructions: - Discharge Summary Sheet cp - Chronic Back Pain cp - Nonspecific Chest Pain, Adult cp - Aspirin and Your Heart cp Forms: - Medication Reconciliation Form cp - Thank You Letter cp - Antibiotic Education cp - Prescription Opioid Use cp Prescriptions: - Mobic 7.5 mg Oral Tablet - take 1 tablet by ORAL route once daily take with food; 20 tablet; Refills: 0, cp Product Selection Permitted - Cyclobenzaprine 10 mg Oral Tablet - take 1 tablet by ORAL route every 8 hours As needed; 20 tablet; Refills: 0, cp Product Selection Permitted - Prednisone 20 mg Oral Tablet - take 2 tablets by ORAL route once daily for 5 days; 10 tablet; Refills: 0, cp Product Selection Permitted Signatures: Dispatcher [employer] Orestes Wisdom MD MD kdr Smirch, Shelby RN RN Sohail Roe PA PA cp Gilmore, Jennifer, RN RN jg9
--- NOTE | 2021-12-30 14:23 | ER ---
Nurse's Notes [facility] Name: Joseph Quach Age: 61 yrs Sex: Male : 1960 Arrival Date: 12/30/2021 Time: 07:39 Bed 13 Private MD: Diagnosis: COPD/ Chronic obstructive pulmonary disease with (acute) exacerbation;Dorsalgia, unspecified;Chest pain, unspecified Presentation: 12/30 07:54 Chief complaint: Patient states: Back pain x 3 months. Pt reports that his back pain is ss causing his breathing to become labored. PT reports he was supposed to have an outpatient XRAY today, but he was hurting too bad. Coronavirus screen: Client denies travel out of the [place] in the last 14 days. Ebola Screen: Patient denies exposure to infectious person. Patient denies travel to an Ebola-affected area in the 21 days before illness onset. Initial Sepsis Screen: Does the patient meet any 2 criteria? RR > 20 per min. HR > 90 bpm. Does the patient have a suspected source of infection? No. Patient's initial sepsis screen is negative. Risk Assessment: Do you want to hurt yourself or someone else? Patient reports no desire to harm self or others. Onset of symptoms was September 2021. 07:54 Method Of Arrival: Ambulatory ss 07:54 Acuity: AISLINN 3 ss Triage Assessment: 09:46 General: Appears uncomfortable, Behavior is calm, cooperative. 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 Historical: - Allergies: 07:56 Fish Containing Products; ss - PMHx: 07:56 angina pectoris; cirrhosis of liver; COPD; High Cholesterol; Hypertensive disorder; ss Myocardial infarction; - Immunization history:: Client reports having NOT received the Covid vaccine. - Social history:: Smoking status: Patient/guardian denies using tobacco, but has a distant history of tobacco abuse. Screenin:45 Abuse screen: Denies threats or abuse. Nutritional screening: No deficits noted. jg9 Tuberculosis screening: No symptoms or risk factors identified. Fall Risk None identified. Assessment: 09:43 Reassessment: No changes from previously documented assessment. Patient is alert, jg9 oriented x 3, equal unlabored respirations, skin warm/dry/pink. Patient in bed, breathing tx going, medications given for pain-no change yet. Pain: Complains of pain in chest Pain currently is 9 out of 10 on a pain scale. Cardiovascular: Rhythm is sinus tachycardia. Respiratory: Airway Respiratory effort is even, labored, Breath sounds are diminished bilaterally. 10:28 Reassessment: Patient states feeling better. Patient states symptoms have improved. jg9 11:50 Reassessment: Patient reports pain is returning in his chest-provider notified. jg9 13:18 Reassessment: Patient and/or family updated on plan of care and expected duration. Pain jg9 level reassessed. Patient is alert, oriented x 3, equal unlabored respirations, skin warm/dry/pink. Patient states feeling better. Patient states symptoms have improved. Vital Signs: 07:54 BP 117 / 63; Pulse 113; Resp 24; Temp 98.9(TE); Pulse Ox 95% on 2 lpm NC; Weight 113.4 ss kg; Height 5 ft. 11 in. (180.34 cm); Pain 10/10; 09:30 BP 133 / 86; Pulse 114; Resp 18 S; Pulse Ox 96% on Nebulizer Mask; Pain 9/10; jg9 11:45 BP 124 / 95; Pulse 115; Resp 20 S; Pulse Ox 95% on 2 lpm NC; Pain 8/10; jg9 13:00 BP 109 / 76; Pulse 81; Resp 17 S; Pulse Ox 93% on 2 lpm NC; jg9 14:00 BP 118 / 90; Pulse 81; Resp 18 S; Pulse Ox 96% on 2 lpm NC; jg9 07:54 Body Mass Index 34.87 (113.40 kg, 180.34 cm) ED Course: 07:39 Patient arrived in ED. am2 07:56 Triage completed. ss 07:56 Arm band placed on right wrist. ss 08:08 Sohail Jensen PA is PHCP. cp 08:08 Orestes Osorio MD is Attending Physician. cp 08:17 Toshia Vásquez, JEZ is Primary Nurse. jg9 08:46 XRAY Chest (1 view) In Process Unspecified. EDMS 09:10 Inserted saline lock: 22 gauge in right wrist, using aseptic technique. Blood collected.jg9 09:46 Patient has correct armband on for positive identification. Bed in low position. Call jg9 light in reach. Side rails up X 1. 10:28 CT Aorta for Dissection In Process Unspecified. EDMS 13:22 No apparent distress. Resting quietly. jg9 13:27 LAB Add On Sent. jg9 14:20 Davin Thomas DO is Referral Physician. cp 14:21 Richardson Douglass MD is Referral Physician. cp 14:36 No provider procedures requiring assistance completed. IV discontinued. jg9 Administered Medications: 09:15 Drug: Xopenex (levalbuterol) (3) 1.25 mg Route: Inhalation; jg9 10:11 Follow up: Response: No adverse reaction jg9 09:17 Drug: SOLU-Medrol (methylPrednisoLONE) 125 mg Route: IVP; Site: right wrist; jg9 10:11 Follow up: Response: No adverse reaction jg9 09:20 Drug: fentaNYL (PF) 25 mcg Route: IVP; Site: right wrist; jg9 10:11 Follow up: Response: No adverse reaction; Pain is decreased jg9 09:21 Not Given (patient took 1 full dose aspirin this morning prior to comingg): Aspirin jg9 Chewable Tablet 324 mg PO once; 81 mg tablets x 4 10:27 Drug: Magnesium Sulfate 1 grams Route: IVPB; Infused Over: 1 hrs; Site: right wrist; jg9 11:30 Follow up: IV Status: Completed infusion; IV Intake: 100ml jg9 11:46 Drug: Potassium Effervescent Tablet 50 mEq Route: PO; jg9 12:14 Follow up: Response: No adverse reaction jg9 12:20 Drug: morphine 4 mg Route: IVP; Infused Over: 4 mins; Site: right wrist; jg9 13:27 Follow up: Response: No adverse reaction; Pain is decreased jg9 12:21 Drug: Metoprolol 25 mg Route: PO; jg9 13:28 Follow up: Response: No adverse reaction; Blood pressure is lowered jg9 Medication: 09:47 VIS not applicable for this client. jg9 Intake: 11:30 IV: 100ml; Total: 100ml. jg9 Outcome: 14:22 Discharge ordered by . cp 14:37 Discharged to home via wheelchair. jg9 14:37 Condition: improved 14:37 Discharge instructions given to patient, Instructed on discharge instructions, follow up and referral plans. Demonstrated understanding of instructions, follow-up care, medications, Prescriptions given X 3. 14:37 Patient left the ED. jg9 Signatures: Dispatcher [employer] EDMS Ernestina Lou RN RN Sohail Jensen PA PA Mary Lou Strange am2 Toshia Vásquez RN RN jg9 Corrections: (The following items were deleted from the chart) 14:13 11:45 BP 124 / 95; Pulse 115bpm; Resp 20bpm; Spontaneous; Pulse Ox 95% Nasal Cannula; jg9 Pain 8/10; jg9 14:13 13:00 BP 109 / 76; Pulse 81bpm; Resp 17bpm; Spontaneous; Pulse Ox 93% Nasal Cannula; [id number]
[2021-12-30 14:48] VITALS: TEMP 98.9
[2021-12-30 14:55] VITALS: BP 118/90; O2SAT 96
--- NOTE | 2021-12-31 13:48 | EKG ---
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
== END 2021-12-30 14:37 | disposition home or self-care (01) ==
LOC: ER 07:38
DX: J44.1 Chronic obstructive pulmonary disease with (acute) exacerbation (principal); R07.9 Chest pain, unspecified; M54.9 Dorsalgia, unspecified; I10 Essential (primary) hypertension; I25.2 Old myocardial infarction; Z91.013 Allergy to seafood
CPT/HCPCS: 96365; 93005; 85025; 80048; 36415; 83735; 85610; 80076; 84484 ×2; 83690; 83880; 71275; 74175; 71045; 96375; 99285; Q9967; J3010; J3475; J2930

== ENCOUNTER 2022-06-17 12:12 | Inpatient (IN) | payer OTHER ==
--- OUTSIDE RECORDS SUMMARY | 2022-06-17 12:18 | XMS REPORT | Continuity of Care Document ---
:1960 Author Organization [facility] t Address [address] [place] [address] Care Team Providers Name Role Phone Debora STEELE, [facility] Primary Care Physician [phone] CHRISTOPHER CLARK Attending Clinician Unavailable Christopher Clark MD Attending Clinician [facility] Attending Clinician Unavailable Doctor Unassigned, [place] Attending Clinician Unavailable CORAZON SERRANO Attending Clinician Unavailable LALY MEHTA Attending Clinician Unavailable Brigida Ulloa MD Attending Clinician Boyd Claros MD Attending Clinician Laly Mehta MD Attending Clinician Sarahi Victor MD Attending Clinician Nickie Davidson RN Attending Clinician Unavailable ALEXIS ISAAC Attending Clinician Unavailable Sheba Bhagat Attending Clinician Nader Cross MD Attending Clinician Alexis Isaac MD Attending Clinician SARAHI VICTOR Admitting Clinician Unavailable Sarahi Victor MD Admitting Clinician ALEXIS ISAAC Admitting Clinician Unavailable Alexis Isaac MD Admitting Clinician Payers Payer Name Policy Type Policy Number Effective Date Expiration Date [facility] [id number] 2021 COMM 00:00:00 [place]ICA[place] OF [place] [id number] 2020 00:00:00 Problems Condition Condition Condition Status Onset Resolution Last Treating Co mments Source Name Details Category Date Date Treatment Clinician Date Hepatocell Hepatocell Disease Active 2021-08 U nivers ular ular 0-20 [place] Chronic Chronic Disease Active 2021-08 [facility] hepatitis 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 00 [facility] reynaldo with with Branch cirrhosis cirrhosis Volume Volume Disease Active Univers overload overload 5-18 ity of 00:00: [place] [facility] COPD with COPD with Disease Active Uni vers acute acute 4-07 it[place] of exacerb[place] exacerb[place] Obesity Obesity Disease Active Univers (BMI (BMI 4-06 ity of 30-39.9) 30-39.9) 00:00: [place] [facility] COPD COPD Disease Active Univers exacerbati exacerbati 4-06 it y of on on 00:00: Medical Branch Troponin I Troponin I Disease Active U nivers above above 4-06 it[place] of reference reference 00:00[place] range range 00 [place] Cigarette Cigarette Disease Active Uni vers smoker smoker 4-06 ity of 00:00: [place] [facility] Chest pain Chest pain Disease Active U nivers 4-05 ity of 00:00: Medical Branch Allergies, Adverse Reactions, Alerts Allergy Allergy Status Severity Reaction(s) Onset Inactive Treating Comm ents Source Name Type Date Date Clinician Seafood/ Propensi Active Rash 2018-08 Univer s Fish ty to 2-17 ity of adverse 00:00: [place] reaction 00 Medical s Branch SEAFOOD/ Food Active Rash 2018-08 Univers FISH 2-17 ity of 00:00: [address] Social History Social Habit Start Date Stop Date Quantity Comments Source Exposure to 2022-05-10 2022-05-[address] [facility] SARS-CoV-2 00:00:00 11:07:00 [facility] (event) Branch Tobacco use and 2022-05-20 2022-05-20 User of smokeless Un iversity of exposure 00:00:00 00:00:00 tobacco [facility] Alcohol intake 2022-05-20 2022-05-[address] Ex-[address] [facility] 00:00:00 00:00:00 (finding) [facility] Education 2021-11-04 2021-11-[address] [facility] 00:00:00 00:00:00 [facility] History of 2017-05-29 Cigarette Smoker Universi ty of tobacco use 00:00:00 [facility] Sex Ass[birth year] At [birth year] Universit y of 00:00:00 00:00:00 [facility] Smoking Status Start Date Stop Date Source Ex-smoker 2022-05-20 00:00:00 2022-05-20 00:00:00 Universi ty of [facility] Medications Ordered Filled Start Stop Current Ordering Indication Dosage Frequency Signature Comments Components Source Medication Medication Date Date Medication? Clinician (SIG) Name Name aspirin 81 2021-08 Yes 81mg Take 81 mg U nivers mg chewable 0-20 by mouth ity of tablet 11:22: daily. [address] spironolact 2021-08 Yes 100mg Take 100 U nivers one 100 mg 0-20 mg by ity of tablet 11:22: mouth in [place] [address] the Medical morning. Branch aspirin 81 2021-08 Yes 81mg Take 81 mg U nivers mg chewable 0-20 by mouth ity of tablet 11:22: daily. [address] spironolact 2021-08 Yes 100mg Take 100 U nivers one 100 mg 0-20 mg by ity of tablet 11:22: mouth in [place] [address] the Medical morning. Branch aspirin 81 2021-08 Yes 81mg Take 81 mg U nivers mg chewable 0-20 by mouth ity of tablet 11:22: daily. [address] spironolact 2021-08 Yes 100mg Take 100 U nivers one 100 mg 0-20 mg by ity of tablet 11:22: mouth in [place] [address] the Medical morning. Branch aspirin 81 2021-08 Yes 81mg Take 81 mg U nivers mg chewable 0-20 by mouth ity of tablet 11:22: daily. [place] [address] Medical Branch spironolact 2021-08 Yes 100mg Take 100 U nivers one 100 mg 0-20 mg by ity of tablet 11:22: mouth in [place] [address] the Medical morning. Branch gabapentin 2021-08 Yes 300mg Take 300 [place] 300 mg 0-20 mg by ity of capsule 11:21: mouth 2 [place] [address] (two) Medical times Branch daily. gabapentin 2021-08 Yes 300mg Take 300 [place] 300 mg 0-20 mg by ity of capsule 11:21: mouth 2 [place] [address] (two) Medical times Branch daily. gabapentin 2021-08 Yes 300mg Take 300 [place] 300 mg 0-20 mg by ity of capsule 11:21: mouth 2 [place] [address] (two) Medical times Branch daily. gabapentin 2021-08 Yes 300mg Take 300 [place] 300 mg 0-20 mg by ity of capsule 11:21: mouth 2 [place] [address] (two) Medical times Branch daily. mometasone/ 2021-08 Yes Inhale. Uni vers formoterol 0-20 ity of (DULERA 11:19: [place] INHALE) 44 Medical Branch mometasone/ 2021-08 Yes Inhale. Uni vers formoterol 0-20 ity of (DULERA 11:19: [place] INHALE) 44 Medical Branch mometasone/ 2021-08 Yes Inhale. Uni vers formoterol 0-20 ity of (DULERA 11:19: [place] INHALE) 44 Medical Branch mometasone/ 2021-08 Yes Inhale. Uni vers formoterol 0-20 ity of (DULERA 11:19: [place] INHALE) Medical Branch oxyCODONE-a 2021-08 Yes 1{tbl} Take 1 [place] cetaminophe 0-05 tablet by ity of n 7.5-325 00:00: mouth in [facility] s mg per 00 the Medical tablet morning Branch and 1 tablet in the evening. oxyCODONE-a 2021-08 Yes 1{tbl} Take 1 [place] cetaminophe 0-05 tablet by ity of n 7.5-325 00:00: [place] mg per 00 the Medical tablet morning Branch and 1 tablet in the evening. oxyCODONE-a 2021-08 Yes 1{tbl} Take 1 [place] cetaminophe 0-05 tablet by ity of n 7.5-325 00:00: mouth [place] mg per 00 the Medical tablet morning Branch and 1 tablet in the evening. oxyCODONE-a 2021-08 Yes 1{tbl} Take 1 [place] cetaminophe 0-05 tablet by ity of n 7.5-325 00:00: [place] mg per 00 the Medical tablet morning Branch and 1 tablet in the evening. TAKE 1 No 10 TABLET 3 8-05 TIMES DAILY 00:00: NEEDED. 00 TAKE 1 No 50 TABLET 8-03 DAILY. 00:00: 00 TAKE 1 2021-0 No 50 TABLET 8-03 DAILY. 00:00: 00 spironolact 2021-0 2021- No [id number] 100mg Take 1 Univers one 100 mg 5-20 08-19 tablet by ity of tablet 00:00: 04:59 mouth [place] 00 :00 daily for Medical 90 days. Branch mometasone/ 0 Yes Inhale. Uni vers formoterol 5-19 ity of (DULERA 21:29: [place] INHALE) 50 Medical Branch aspirin 81 0 Yes 81mg Take 81 mg U nivers mg chewable 5-19 by mouth ity of tablet 21:29: daily. [place] [address] Medical Branch gabapentin 0 Yes 300mg Take 300 [place] 300 mg 5-19 mg by ity of capsule 21:29: mouth 2 [place] [address] (two) Medical times Branch daily. mometasone/ 2021-0 Yes Inhale. Uni vers formoterol 5-19 ity of (DULERA 21:29: [place] INHALE) 50 Medical Branch aspirin 81 2021-0 Yes 81mg Take 81 mg U nivers mg chewable 5-19 by mouth ity of tablet 21:29: daily. [place] [address] Medical Branch gabapentin 2021-0 Yes 300mg Take 300 [place] 300 mg 5-19 mg by ity of capsule 21:29: mouth 2 [place] 50 (two) Medical times Branch daily. mometasone/ 2021-0 Yes Inhale. Uni vers formoterol 5-19 ity of (DULERA 21:29: [place] INHALE) 50 Medical Branch aspirin 81 2021-0 Yes 81mg Take 81 mg U nivers mg chewable 5-19 by mouth ity of tablet 21:29: daily. [place] [address] Medical Branch gabapentin 2021-0 Yes 300mg Take 300 [place] 300 mg 5-19 mg by ity of capsule 21:29: mouth 2 [place] 50 (two) Medical times Branch daily. lactulose 0 Yes 15mL 15 mL, Univer s (CEPHULAC) 5-19 Oral, QID, ity of solution 15 17:00: First dose [place] mL 00 (after Medical last Branch modificati on) on [facility] 12/17/21 at 1200, Until Discontinu ed, Routine furosemide 2021-0 2021- No 40mg Take 40 mg Univers (LASIX) 40 12-17 05-19 by mouth ity of mg tablet 14:49: 00:00 every [place] 22 :00 morning Medical and Branch evening. torsemide Yes 80mg 80 mg, Univer s (SOAANZ) -19 Oral, ity of tablet 80 14:00: DAILY, [place] mg 00 First dose Medical on [facility] Branch 12/17/21 at 0900, Until Discontinu ed, Routine Dose 0 No Unknown - 00:00: 00 Dose 2021-0 No Unknown - 00:00: 00 lactulose 2021-0 2021- No [id number] 15mL Take 15 mL Univers 10 gram/15 12-17-18 by mouth 4 it y of mL solution 00:00: 04:59 (four) [place] :00 times Medical daily for Branch 90 days. furosemide 2021-0 2021- No [id number] 60mg Take 1.5 Univers 40 mg 12-17-18 tablets by ity of tablet 00:00: 04:59 mouth [place] 00 :00 every Medical morning Branch and evening for 90 days. carvediloL 2021-0 2021- No [id number] 3.125mg Take 1 Univers 3.125 mg -19 03-18 tablet by ity o f tablet 00:00: 04:59 mouth 2 [place] 00 :00 (two) Medical times Branch daily with meals for 90 days. triamcinolo 2021- No [id number] Apply to [facility] ne 12-17 area(s) 2 ity of acetonide 00:00: 04:59 (two) [place] 0.1 % 00 :00 times Medical ointment daily for Branch 30 days. carvedilol 2021- No [id number] 3.125mg Take 2.5 Univers 1.25 mg/mL 12-17 [...] Routine triamcinolo Yes Topical, [place] ne 12-16 BID, First ity of acetonide 14:45: dose on [place] (KENALOG) [facility] Medical 0.1 % 12/16/21 at Branch ointment 0945, Until Discontinu ed, Routine carvedilol Yes 3.125mg 3.125 mg, Univers (COREG) 12-16 Oral, BID ity of 1.25 mg/mL 14:30: MEALS, [place] oral 00 First dose Medical suspension on Tue Branch 3.125 mg 12/16/21 at 0930, Until Discontinu ed, Routine spironolact Yes 100mg 100 mg, [place] one 12-16 Oral, ity of (ALDACTONE) 14:00: DAILY, [place] tablet 100 00 First dose Med ical mg on Tue12/16/21 at 0900, Until Discontinu ed, Routine aspirin Yes 81mg 81 mg, Univers chewable 12-16 Oral, ity of tablet 81 14:00: DAILY, [place] mg 00 First dose Medical on Tue Branch 12/16/21 at 0900, Until Discontinu ed, Routine lactulose 2021- No 15mL 15 mL, Unive rs (CEPHULAC) 12-16 Oral, ity of solution 15 14:00: 14:13 DAILY, [place] mL 00 :06 First dose Medical on Tue [place] 12/16/21 at 0900, Until Discontinu ed, Routine furosemide 2021- No 40mg 40 mg, Univ ers (LASIX) 12-16 Oral, ity of tablet 40 14:00: 16:26 DAILY, [place] mg 00 :55 First dose Medical on Tue Branch 12/16/21 at 0900, Until Discontinu ed, Routine budesonide- Yes 2{puff} 2 Puff, Univers formoteroL 12-16 Inhalation ity of (SYMBICORT) 13:00: , BID, [place] 80-4.5 00 First dose Medical mcg/actuati (after Branch on inhaler last 2 Puff modificati on) on Tue12/16/21 at 0800, Until Discontinu ed gabapentin Yes 300mg 300 mg, Uni vers (NEURONTIN) 12-16 Oral, BID, it y of capsule 300 13:00: First dose [place] mg 00 on [facility] Medical 12/16/21 at Branch 0800, Until Discontinu ed, Routine ipratropium Yes 3mL 3 mL, Unive rs -albuteroL 18 Inhalation ity of (DUONEB) 09:00: , Q4H, [...] 37 Starting Medica l %) on Tue Branch nebulizer 12/16/21 at solution 0329, 2.5 mg Until Discontinu ed, Routine, Shortness of Breath, Wheezing acetaminoph Yes 650mg 650 mg, [place] en 12-16 Oral, ity of (TYLENOL) 08:02: Q6HPRN, [place] tablet 650 27 Starting Medic al mg on Tue Branch 12/16/21 at 0302, Until Discontinu ed, Routine, Pain (scale 1-3) traMADoL 2021- No 50mg 50 mg, Univer s (ULTRAM) 12-16 Oral, ity of tablet 50 08:02: 08:01 Q8HPRN, [place] mg 27 :27 Starting Medical on Tue Branch 12/16/21 at 0302, Until Tue12/18/21 at 0301, Routine, Pain (scale 4-6) iohexol 2021- No [id number] 80mL 80 mL, Uni vers (OMNIPAQUE 12-16 Intravenou it y of 350 02:15: 02:15 s, ONCE, 1 [place] BULK-100 00 :00 dose, On Medical mL) Tu Branch injection 12/15/21 at 80 mL 2115, Routine furosemide 0 2021- No 80mg 80 mg, IV U nivers (LASIX) 12-16 Push, ity of injection 02:00: 01:23 ONCE, 1 [place] 80 mg 00 :00 dose, On Medical [facility] Branch 12/15/21 at 2100, LARRY aspirin 2021-0 2021- No 325mg 325 mg, Unive rs tablet 325 12-15 Oral, ity of mg 23:00: 22:47 ONCE, 1 [place] 00 :00 dose, On Medical [facility] Branch 12/15/21 at 1800, STAT ipratropium 2021- No 3mL 3 mL, Univ ers -albuteroL 12-15 05-17 Inhalation it y of (DUONEB) 21:48: 22:47 , ONCE [place] 0.5 mg-3 00 :00 NOW, 1 Medical mg(2.5 mg dose, On Branch base)/3 mL Tue nebulizer 12/15/21 at solution 3 1700, LARRY mL sodium 0 Yes 5mL 5 mL, Univers chloride 12-15 Intravenou ity o f (NS) 21:28: s, PRN, [place] injection 5 01 Starting Medi reynaldo mL on Tue Branch 12/15/21 at 1628, Until Discontinu ed, Routine, IV line flushing azithromyci 2021- No 500mg 500 mg, U nivers n 4-08 04-09 Oral, ity of (ZITHROMAX) 13:00: 00:59 ONCE, 1 [place] tablet 500 00 :00 dose, On Medic al mg Tue11/06/21 Branch at 0800, Routine
Reason for Anti-Infec tive: Empiric Therapy for Suspected Infection< br>Empiric Therapy Site: Respirator y
Durat ion of therapy: 72 hours albuterol 0 Yes [id number] 2.5mg Inhale 3 Univers 2.5 mg /3 4-08 mL every 4 ity of mL (0.083 00:00: (four) [place] %) 00 hours as Medical nebulizer needed for Bran ch solution Wheezing or Shortness of Breath. albuterol 0 Yes [id number] 2.5mg Inhale 3 Univers 2.5 mg /3 4-08 mL every 4 ity of mL (0.083 00:00: (four) [place] %) 00 hours as Medical nebulizer needed for Bran ch solution Wheezing or Shortness of Breath. albuterol 0 Yes [id number] 2.5mg Inhale 3 Univers 2.5 mg /3 4-08 mL every 4 ity of mL (0.083 00:00: (four) [place] %) 00 hours as Medical nebulizer needed for Bran ch solution Wheezing or Shortness of Breath. albuterol 2021-0 Yes [id number] 2.5mg Inhale 3 Univers 2.5 mg /3 4-08 mL every 4 ity of mL (0.083 00:00: (four) [place] %) 00 hours as Medical nebulizer needed for Bran ch solution Wheezing or Shortness of Breath. albuterol 2021-0 Yes [id number] 2.5mg Inhale 3 Univers 2.5 mg /3 4-08 mL every 4 ity of mL (0.083 00:00: (four) [place] %) 00 hours as Medical nebulizer needed for Bran ch solution Wheezing or Shortness of Breath. albuterol 2021-0 Yes [id number] 2.5mg Inhale 3 Univers 2.5 mg /3 4-08 mL every 4 ity of mL (0.083 00:00: (four) [place] %) 00 hours as Medical nebulizer needed for Bran ch solution Wheezing or Shortness of Breath. albuterol 2021-0 Yes [id number] 2.5mg Inhale 3 Univers 2.5 mg /3 4-08 mL every 4 ity of mL (0.083 00:00: (four) [place] %) 00 hours as Medical nebulizer needed for Bran ch solution Wheezing or Shortness of Breath. ipratropium 2021- No [id number] .5mg Inhale 2.5 Univers 0.02 % 11-06 05-18 mL every 4 ity of nebulizer 00:00: 00:00 (four) [place] solution 00 :00 hours as Medical needed for Branch Wheezing or Shortness of Breath. aspirin 2021- No [id number] 325mg Take 1 U nivers E.C. 325 mg 11-06 tablet by it y of EC tablet 00:00: 04:59 mouth [place] 00 :00 daily with Medical breakfast Branch for 30 days. cholecalcif 2021- No [id number] 2000U Take 2 Univers tere, 11-06- tablets by ity of vitamin D3, 00:00: 04:59 mouth [place] 25 mcg 00 :00 daily for Medical (1,000 30 days. Branch unit) tablet metoprolol 2021- No [id number] 25mg Take 1 Univers succinate 11-06- tablet by ity of XL 25 mg 24 00:00: 04:59 mouth [place] hr tablet 00 :00 daily for Medic al 30 days. Branch aspirin 2021- No [id number] 325mg Take 1 U nivers E.C. 325 mg 11-06- tablet by it y of EC tablet 00:00: 04:59 mouth [place] 00 :00 daily with Medical breakfast Branch for 30 days. cholecalcif 2021- No [id number] 2000U Take 2 Univers tere, 11-06-09 tablets by ity of vitamin D3, 00:00: 04:59 mouth [place] 25 mcg 00 :00 daily for Medical (1,000 30 days. Branch unit) tablet metoprolol 2021- No [id number] 25mg Take 1 Univers succinate 11-06- tablet by ity of XL 25 mg 24 00:00: 04:59 mouth [place] hr tablet 00 :00 daily for Medic al 30 days. Branch predniSONE 2021- No [id number] 50mg Take 1 Univers 50 mg 11-06 tablet by ity of tablet 00:00: 04:59 mouth [place] 00 :00 every day Medical at 1200 [place] (noon) for 3 days. predniSONE 2021- No [id number] 50mg Take 1 Univers 50 mg 11-06- tablet by ity of tablet 00:00: 04:59 mouth [place] 00 :00 every day Medical at 1200 [place] (noon) for 3 days. mometasone/ Yes Inhale. Uni vers formoterol 4-07 ity of (DULERA 18:48: [place] INHALE) [address] [place] [address] Branch mometasone/ Yes Inhale. Uni vers formoterol 4-07 ity of (DULERA 18:48: [place] INHALE) [address] [place] [address] Branch cholecalcif Yes 2000U 2,000 Univ ers tere 4-07 Units, ity of (vitamin [...] Unsure on dose ALBUTEROL 2021- No Inhale. Univ ers INHALE 4-07 04-07 ity of 14:03: 00:00 [place] 31 :00 Medical Branch albuterol Yes [id number] 2{puff} Inhale 2 Univers 90 4-07 Puffs ity of mcg/actuati 00:00: every 6 [place] on inhaler 00 (six) Medical hours as Branch needed for Wheezing or Shortness of Breath. Budesonide Yes [id number] 1{puff} Inhale 1 Univers 90 4-07 Puff every ity of mcg/actuati 00:00: morning [place] on aerosol 00 and Medical powder evening. Branch HYDROcodone Yes [id number] 1{tbl} Take 1 [place] -acetaminop 4-07 tablet by ity of hen 5-325 00:00: mouth [place] mg tablet 00 every 6 Medical (six) Branch hours as needed for Pain (scale 4-6). Indication s: acute pain albuterol Yes [id number] 2{puff} Inhale 2 Univers 90 4-07 Puffs ity of mcg/actuati 00:00: every 6 [place] on inhaler 00 (six) Medical hours as Branch needed for Wheezing or Shortness of Breath. albuterol Yes [id number] 2{puff} Inhale 2 Univers 90 4-07 Puffs ity of mcg/actuati 00:00: every 6 [place] on inhaler 00 (six) Medical hours as Branch needed for Wheezing or Shortness of Breath. albuterol Yes [id number] 2{puff} Inhale 2 Univers 90 4-07 Puffs ity of mcg/actuati 00:00: every 6 [place] on inhaler 00 (six) Medical hours as Branch needed for Wheezing or Shortness of Breath. albuterol Yes [id number] 2{puff} Inhale 2 Univers 90 4-07 Puffs ity of mcg/actuati 00:00: every 6 [place] on inhaler 00 (six) Medical hours as Branch needed for Wheezing or Shortness of Breath. albuterol Yes [id number] 2{puff} Inhale 2 Univers 90 4-07 Puffs ity of mcg/actuati 00:00: every 6 [place] on inhaler 00 (six) Medical hours as Branch needed for Wheezing or Shortness of Breath. albuterol Yes [id number] 2{puff} Inhale 2 Univers 90 4-07 Puffs ity of mcg/actuati 00:00: every 6 [place] on inhaler 00 (six) Medical hours as Branch needed for Wheezing or Shortness of Breath. albuterol Yes [id number] 2{puff} Inhale 2 Univers 90 4-07 Puffs ity of mcg/actuati 00:00: every 6 [place] on inhaler 00 (six) Medical hours as Branch needed for Wheezing or Shortness of Breath. albuterol Yes [id number] 2{puff} Inhale 2 Univers 90 4-07 Puffs ity of mcg/actuati 00:00: every 6 [place] on inhaler 00 (six) Medical hours as Branch needed for Wheezing or Shortness of Breath. Budesonide Yes [id number] 1{puff} Inhale 1 Univers 90 4-07 Puff [...] Indication s: acute pain Budesonide 2021- No [id number] 1{puff} Inhale 1 Univers 90 4-07 05-18 [...] 4-6). Indication s: acute pain gabapentin 2021- No [id number] 300mg Take 1 Univers 300 mg 11-05- capsule by ity of capsule 00:00: 04:59 mouth 2 [place] 00 :00 (two) Medical times [place] daily for 30 days. gabapentin 2021- No [id number] 300mg Take 1 Univers 300 mg 11-05-08 capsule by ity of capsule 00:00: 04:59 mouth 2 [place] 00 :00 (two) Medical times [place] daily for 30 days. azithromyci No [id number] 500mg Take 1 Univers n 500 mg 11-0510 tablet by ity o f tablet 00:00: 04:59 mouth [place] 00 :00 daily for Medical 2 doses. Branch azithromyci No [id number] 500mg Take 1 Univers n 500 mg 11-0510 tablet by ity o f tablet 00:00: 04:59 mouth [place] 00 :00 daily for Medical 2 doses. [place] enoxaparin Yes 30mg 30 mg, Unive rs (LOVENOX) 11-04 Subcutaneo ity of injection 22:00: [place], DAILY, [place] 30 mg 00 First dose Medical on Tue11/04/21 at 1700, Until Discontinu ed, Routine sulfur 2021- No [id number] 5mL 5 mL, Univ ers hexafluorid 11-04- Intravenou i ty of e microsphr 17:45: 17:45 s, ONCE, 1 [place] (LUMASON) 00 :00 dose, On Medica l injection Tue11/04/21 Br anch mL at 1245, Routine
engineering faculty member approving Restricted medication : SUMIT YIJAMES predniSONE Yes 50mg 50 mg, Unive rs (DELTASONE) 11-04 Oral, ity of tablet 50 17:00: QNOON, [place] mg 00 First dose Medical on Tue11/04/21 at 1200, Until Discontinu ed, Routine morpHINE 2021- No 2mg 2 mg, Slow [place] injection 2 11-04- IV Push, ity of mg 16:15: 15:22 ONCE, 1 [place] 00 :00 dose, On Medical Tue11/04/21 Branch at 1115, Routine HYDROcodone 2021-0 Yes 1{tbl} 1 tablet, Univers -acetaminop 4- Oral, ity of hen (NORCO 15:06: Q6HPRN, [place] 5) 5-325 mg 46 Starting Medi reynaldo tablet 1 on Tue Branch tablet 11/04/21 at 1006, Until Discontinu ed, Routine, Pain (scale 4-6) metoprolol 2021-0 Yes 25mg 25 mg, Unive rs succinate 06 Oral, ity of XL (TOPROL 14:00: DAILY, [place] XL) tablet 00 First dose Med ical 25 mg on Tue Branch 11/04/21 at 0900, Until Discontinu ed, Routine azithromyci 2021-0 202- No 500mg 500 mg, IV Univers n - 04-07 Piggyback, ity of (ZITHROMAX) 09:00: 13:35 [...] days aspirin 2021-0 Yes 325mg 325 mg, Univer s E.C. 4-06 Oral, QAM ity of (ECOTRIN) 08:30: WITH [place] tablet 325 00 BREAKFAST, Med ical mg First dose Branch on Tue11/04/21 at 0330, Until Discontinu ed, Routine budesonide 2021-0 Yes .5mg 0.5 mg, Univ ers (PULMICORT - Inhalation ity of RESPULE) 08:00: , BID, [place] nebulizer 00 First dose Medi reynaldo solution [...] Routine gabapentin 0 Yes 300mg 300 mg, Uni vers (NEURONTIN) 406 Oral, BID, it y of capsule 300 08:00: First dose [place] mg 00 on Tue Medical 11/04/21 at Branch 0300, Until Discontinu ed, Routine docusate Yes 100mg 100 mg, Unive rs (COLACE) 11-04 Oral, BID, ity o f capsule 100 08:00: First dose [place] mg 00 on Tue Medical 11/04/21 at Branch 0300, Until Discontinu ed, Routine ondansetron Yes 4mg 4 mg, Slow Univers (ZOFRAN [...] Branch injection at 2345, 125 mg LARRY Dose 2021-0 No Unknown 2-28 00:00: 00 Dulera 100 2021-0 No 2mcg/ac mcg-5 2-28 tuation mcg/actuati 00:00: on HFA 00 aerosol inhaler Dulera 200 2021-0 No 1mcg/ac mcg-5 2-16 tuation mcg/actuati 00:00: on HFA 00 aerosol inhaler Dose 2022-0 No Unknown 2-16 00:00: 00 prednisone 2022-0 No mg 20 mg 2-16 tablet 00:00: 00 prednisone 2022-0 No mg 20 mg 2-16 tablet 00:00: 00 Bromfed DM 2022-0 No 5mg/5 2 mg-30 2-16 mL mg-10 mg/5 00:00: mL oral 00 syrup Bromfed DM 2022-0 No 5mg/5 2 mg-30 2-16 mL mg-10 mg/5 00:00: mL oral 00 syrup Dulera 200 2022-0 No 1mcg/ac mcg-5 2-16 tuation mcg/actuati 00:00: on HFA 00 aerosol inhaler Dulera 200 2022-0 No 1mcg/ac mcg-5 2-16 tuation mcg/actuati 00:00: on HFA 00 aerosol inhaler prednisone 2022-0 No mg 20 mg 2-16 tablet 00:00: 00 prednisone 2022-0 No mg 20 mg 2-16 tablet 00:00: 00 Bromfed DM 2022-0 No 5mg/5 2 mg-30 2-16 mL mg-10 mg/5 00:00: mL oral 00 syrup Bromfed DM 2022-0 No 5mg/5 2 mg-30 2-16 mL mg-10 mg/5 00:00: mL oral 00 syrup benzonatate 2022-0 No mg 100 mg 2-13 capsule 00:00: 00 Dose 2022-0 No Unknown 2-13 00:00: 00 benzonatate 2022-0 No mg 100 mg 2-13 capsule 00:00: 00 albuterol 2022-0 No /3 mL sulfate 2.5 2-13 (0.083 mg/3 mL 00:00: %) (0.083 %) 00 solution for nebulizatio n prednisone 2022-0 No mg 20 mg 1-25 tablet 00:00: 00 levofloxaci 2022-0 No mg n 500 mg 1-25 tablet 00:00: 00 codeine 10 2-0 No mg/5 mL mg-guaifene 1-25 sin 100 00:00: mg/5 mL 00 oral liquid prednisone 2022-0 No mg 20 mg 1-25 tablet 00:00: 00 levofloxaci 2022-0 No mg n 500 mg 1-25 tablet 00:00: 00 codeine 10 2021-0 No mg/5 mL mg-guaifene 1-25 sin 100 00:00: mg/5 mL 00 oral liquid Dose 2020-0 No Unknown 9-20 00:00: 00 albuterol 2020-0 No 3/3 mL sulfate 2.5 9-20 (0.083 mg/3 mL 00:00: %) (0.083 %) 00 solution for nebulizatio n prednisone 2020-0 No mg 20 mg 3-22 tablet 00:00: 00 Dose 2020-0 No Unknown 3-22 00:00: 00 albuterol 2020-0 No 3/3 mL sulfate 2.5 3-22 (0.083 mg/3 mL 00:00: %) (0.083 %) 00 solution for nebulizatio n Advair 2020-0 No 1mcg/do Diskus 250 3-22 se mcg-50 00:00: mcg/dose 00 powder for inhalation Advair 2020-0 No 1mcg/do Diskus 250 3-22 se mcg-50 00:00: mcg/dose 00 powder for inhalation prednisone 2020-0 No mg 20 mg 3-22 tablet 00:00: 00 prednisone 2020-0 No mg 20 mg 3-22 tablet 00:00: 00 albuterol 2020-0 No 3/3 mL sulfate 2.5 3-22 (0.083 mg/3 mL 00:00: %) (0.083 %) 00 solution for nebulizatio n albuterol 2020-0 No 3/3 mL sulfate 2.5 3-22 (0.083 mg/3 mL 00:00: %) (0.083 %) 00 solution for nebulizatio n Advair 2020-0 No 1mcg/do Diskus 250 3-22 se mcg-50 00:00: mcg/dose 00 powder for inhalation Advair 2020-0 No 1mcg/do Diskus 250 3-22 se mcg-50 00:00: mcg/dose 00 powder for inhalation prednisone 2020-0 No mg 20 mg 3-22 tablet 00:00: 00 Advair 2019-1 No 1mcg/do Diskus 250 1-06 se mcg-50 00:00: mcg/dose 00 powder for inhalation Advair 2019- No 1mcg/do Diskus 250 -06 se mcg-50 00:00: mcg/dose 00 powder for inhalation loratadine 2019-08 No 1mg 10 mg 1-06 tablet 00:00: 00 loratadine 2019- No 1mg 10 mg 1-06 tablet 00:00: 00 furosemide 2019- No 1mg 20 mg 1-06 tablet 00:00: 00 gabapentin 2019- No 1mg 100 mg 1-06 capsule 00:00: 00 albuterol 2019- No 3/3 mL sulfate 2.5 1-06 (0.083 mg/3 mL 00:00: %) (0.083 %) 00 solution for nebulizatio n furosemide 2019-08 No 1mg 20 mg 1-06 tablet 00:00: 00 gabapentin 2019-08 No 1mg 100 mg 1-06 capsule 00:00: 00 albuterol 2019- No 3/3 mL sulfate 2.5 1-06 (0.083 mg/3 mL 00:00: %) (0.083 %) 00 solution for nebulizatio n albuterol 2018-0 No 3/3 mL sulfate 2.5 7-27 (0.083 mg/3 mL 00:00: %) (0.083 %) 00 solution for nebulizatio n albuterol 2018-0 No 3/3 mL sulfate 2.5 7-27 (0.083 mg/3 mL 00:00: %) (0.083 %) 00 solution for nebulizatio n prednisone 2018-0 No mg 20 mg 7-18 tablet 00:00: 00 azithromyci 2018-0 No mg n 250 mg 7-18 tablet 00:00: 00 promethazin 2018-0 No 5mg/5 e-DM 6.25 7-18 mL mg-15 mg/5 00:00: mL syrup 00 prednisone 2018-0 No mg 20 mg 7-18 tablet 00:00: 00 azithromyci 2018-0 No mg n 250 mg 7-18 tablet 00:00: 00 promethazin 2018-0 No 5mg/5 e-DM 6.25 7-18 mL mg-15 mg/5 00:00: mL syrup 00 hydrochloro 2018-0 No 1mg thiazide 25 2-12 mg tablet 00:00: 00 meloxicam 2018-0 No 1mg 7.5 mg 2-12 tablet 00:00: 00 hydrochloro 2018-0 No 1mg thiazide 25 2-12 mg tablet 00:00: 00 meloxicam 2018-0 No 1mg 7.5 mg 2-12 tablet 00:00: 00 hydrochloro 2018-0 No 1mg thiazide 25 2-05 mg tablet 00:00: 00 meloxicam 2018-0 No 1mg 7.5 mg 2-05 tablet 00:00: 00 prednisone 2018-0 No mg 20 mg 2-05 tablet 00:00: 00 hydrochloro 2018-0 No 1mg thiazide 25 2-05 mg tablet 00:00: 00 meloxicam 2018-0 No 1mg 7.5 mg 2-05 tablet 00:00: 00 prednisone 2018-0 No mg 20 mg 2-05 tablet 00:00: 00 prednisone 2017-0 No 2mg 20 mg 3-13 tablet 00:00: 00 diclofenac 2017-0 No 1mg sodium 75 3-13 mg 00:00: tablet,ban 00 yed release prednisone 2017-0 No 2mg 20 mg 3-13 tablet 00:00: 00 diclofenac 2017-0 No 1mg sodium 75 3-13 mg 00:00: tablet,ban 00 yed release Immunizations Ordered Filled Immunization Date Status Comments [facility] e Immunization Name Name Influenza Virus 2021-12-17 Completed Universit y of Vaccine [facility], 00:00:00 [place] Me [place]ical Preserv and ABX Branch Free 6 MO-64 YRS Influenza Virus 2021-12-17 Completed Universit y of Vaccine [facility], 00:00:00 [place] Me [place]ical Preserv and ABX Branch Free 6 MO-64 YRS Influenza Virus 2021-12-17 Completed Universit y of Vaccine [facility] IM, 00:00:00 [place] Me [place]ical Preserv and ABX Branch Free 6 MO-64 YRS Influenza Virus 2021-12-17 Completed Universit y of Vaccine [facility] IM, 00:00:00 [place] Me [place]ical Preserv and ABX Branch Free 6 MO-64 YRS Influenza Virus 2021-12-17 Completed Universit y of Vaccine [facility] IM, 00:00:00 [place] Me [place]ical Preserv and ABX Branch Free 6 MO-64 YRS Influenza Virus 2021-12-17 Completed Universit y of Vaccine [facility] IM, 00:00:00 [place] [facility] [place]ical Preserv and ABX Branch Free 6 MO-64 YRS Influenza Virus 2021-12-17 Completed Universit y of Vaccine [facility] IM, 00:00:00 [place] Me [place]ical Preserv and ABX Branch Free 6 MO-64 YRS Vital Signs Vital Name Observation Time Observation Value Comments Source Systolic blood 2022-05-20 16:17:00 138 mm[Hg] Univer sity of pressure [facility] Branch Diastolic blood 2022-05-20 16:17:00 85 mm[Hg] Unive rsity of [email or web address] Heart rate 2022-05-20 16:17:00 104 /min Universi ty of [facility] Body temperature 2022-05-20 16:17:00 36.22 Lesley Univ ersity of [facility] Body height 2022-05-20 16:17:00 180.3 cm Universi ty of [facility] Body weight 2022-05-20 16:17:00 96.344 kg Universi ty [facility] BMI 2022-05-20 16:17:00 29.62 kg/m2 Universi ty [facility] Oxygen saturation in 2022-05-20 16:17:00 88 /min University of Arterial blood by [facility] Pulse oximetry Branch Heart rate 2021-12-18 00:28:00 85 /min Universi ty [facility] Respiratory rate 2021-12-18 00:28:00 18 /min Univ [facility] Oxygen saturation in 2021-12-18 00:28:00 98 /min University of Arterial blood by [facility] Pulse oximetry Branch Systolic blood 2021-12-17 22:10:00 116 mm[Hg] Univer sity of pressure [facility] Diastolic blood 2021-12-17 22:10:00 79 mm[Hg] Unive rsity of [email or web address] Body temperature 2021-12-17 22:10:00 36.11 Lesley Univ ersity of [place] [facility] Body height 2021-12-16 09:25:00 180.3 cm Universi ty of [place] [facility] [place] Body weight 2021-12-16 09:25:00 106.958 kg Universi ty [facility] [place] [facility] BMI 2021-12-16 09:25:00 32.89 kg/m2 Universi ty [facility] Respiratory rate 2021-11-05 21:30:00 20 /min [facility] in 2021-11-05 21:30:00 93 /min [facility] Arterial blood by [facility] Pulse oximetry Branch Systolic blood 2021-11-05 16:16:00 116 mm[Hg] Univer sity of pressure [facility] Diastolic blood 2021-11-05 16:16:00 71 mm[Hg] Unive rsity of pressure [facility] Heart rate 2021-11-05 16:16:00 95 /min [facility] Body temperature 2021-11-05 16:16:00 36.28 Lesley [facility] Body weight 2021-11-05 09:32:[address] [facility] BMI 2021-11-05 09:32:00 31.05 kg/m2 [facility] Body height 2021-11-04 17:37:[address] [facility] BP Systolic 2022-04-07 10:48:00 118 mm[Hg] BP Diastolic 2022-04-07 10:48:00 81 mm[Hg] Weight Measured 2022-04-07 10:48:00 208.40 pounds Height Measured 2022-04-07 10:48:00 70.85 inches Body Temperature 2022-04-07 10:48:00 98.30 degrees Heart Rate 2022-04-07 10:48:00 113.00 /min Respiratory Rate 2022-04-07 10:48:00 18.00 /min BP Systolic 2022-03-03 08:59:00 152 mm[Hg] BP Diastolic 2022-03-03 08:59:00 87 mm[Hg] Weight Measured 2022-03-03 08:59:00 214.60 pounds Height Measured 2022-03-03 08:59:00 70.85 inches Body Temperature 2022-03-03 08:59:00 98.40 degrees Heart Rate 2022-03-03 08:59:00 110.00 /min Respiratory Rate 2022-03-03 08:59:00 15.00 /min BP Systolic 2021-09-28 18:03:00 151 mm[Hg] BP Diastolic 2021-09-28 18:03:00 88 mm[Hg] Weight Measured 2021-09-28 18:03:00 226.60 pounds Height Measured 2021-09-28 18:03:00 70.85 inches Body Temperature 2021-09-28 18:03:00 98.00 degrees Heart Rate 2021-09-28 18:03:00 102.00 /min Respiratory Rate 2021-09-28 18:03:00 16.00 /min BP Systolic 2021-09-16 08:41:00 146 mm[Hg] BP Diastolic 2021-09-16 08:41:00 88 mm[Hg] Weight Measured 2021-09-16 08:41:00 228.00 pounds Height Measured 2021-09-16 08:41:00 70.85 inches Body Temperature 2021-09-16 08:41:00 98.60 degrees Heart Rate 2021-09-16 08:41:00 111.00 /min Respiratory Rate 2021-09-16 08:41:00 16.00 /min BP Systolic 2020-06-06 15:59:00 139 mm[Hg] BP Diastolic 2020-06-06 15:59:00 84 mm[Hg] Weight Measured 2020-06-06 15:59:00 228.20 pounds Height Measured 2020-06-06 15:59:00 70.85 inches Body Temperature 2020-06-06 15:59:00 Heart Rate 2020-06-06 15:59:00 90.00 /min Respiratory Rate 2020-06-06 15:59:00 22.00 /min BP Systolic 2018-02-24 14:01:00 128 mm[Hg] BP Diastolic 2018-02-24 14:01:00 81 mm[Hg] Weight Measured 2018-02-24 14:01:00 164.60 pounds Height Measured 2018-02-24 14:01:00 70.85 inches Body Temperature 2018-02-24 14:01:00 98.30 degrees Heart Rate 2018-02-24 14:01:00 109.00 /min Respiratory Rate 2018-02-24 14:01:00 16.00 /min BP Systolic 2018-02-24 13:59:00 128 mm[Hg] BP Diastolic 2018-02-24 13:59:00 81 mm[Hg] Weight Measured 2018-02-24 13:59:00 164.60 pounds Height Measured 2018-02-24 13:59:00 70.85 inches Body Temperature 2018-02-24 13:59:00 98.30 degrees Heart Rate 2018-02-24 13:59:00 109.00 /min Respiratory Rate 2018-02-24 13:59:00 16.00 /min BP Systolic 2018-02-15 16:19:00 136 mm[Hg] BP Diastolic 2018-02-15 16:19:00 74 mm[Hg] Weight Measured 2018-02-15 16:19:00 168.40 pounds Height Measured 2018-02-15 16:19:00 70.85 inches Body Temperature 2018-02-15 16:19:00 98.20 degrees Heart Rate 2018-02-15 16:19:00 125.00 /min Respiratory Rate 2018-02-15 16:19:00 20.00 /min BP Diastolic 2017-09-12 16:32:00 88 mm[Hg] Weight Measured 2017-09-12 16:32:00 156.20 pounds Height Measured 2017-09-12 16:32:00 70.00 inches Body Temperature 2017-09-12 16:32:00 98.60 degrees Heart Rate 2017-09-12 16:32:00 88.00 /min Respiratory Rate 2017-09-12 16:32:00 18.00 /min BP Systolic 2017-09-12 16:32:00 136 mm[Hg] BP Systolic 2017-09-05 16:17:00 131 mm[Hg] BP Diastolic 2017-09-05 16:17:00 84 mm[Hg] Weight Measured 2017-09-05 16:17:00 159.00 pounds Height Measured 2017-09-05 16:17:00 70.00 inches Body Temperature 2017-09-05 16:17:00 97.80 degrees Heart Rate 2017-09-05 16:17:00 93.00 /min Respiratory Rate 2017-09-05 16:17:00 BP Systolic 2016-10-11 16:19:00 124 mm[Hg] BP Diastolic 2016-10-11 16:19:00 80 mm[Hg] Weight Measured 2016-10-11 16:19:00 149.40 pounds Height Measured 2016-10-11 16:19:00 70.00 inches Body Temperature 2016-10-11 16:19:00 97.70 degrees Heart Rate 2016-10-11 16:19:00 70.00 /min Respiratory Rate 2016-10-11 16:19:00 18.00 /min Procedures Procedure Date / Time Performing Clinician Source Performed IRON PANEL 2022-05-20 18:03:00 Christopher Clark [facility] REFERRAL- 2022-05-04 05:01:00 Doctor Unassigned, [facility] REQUEST/RESPONSE [place] [facility] BASIC METABOLIC PANEL 2021-12-17 17:36:00 Javier Colbert [facility] (NA, K, CL, CO2, GLUCOSE, Medica l Branch BUN, CREATININE, CA) BASIC METABOLIC PANEL 2021-12-17 00:18:00 Andria [facility] (NA, K, CL, CO2, GLUCOSE, Medica l Branch BUN, CREATININE, CA) HCV ANTIBODY 2021-12-16 22:26:00 Andria [facility] US ABDOMEN LIMITED WITH 2021-12-16 10:43:58 Leia Flor [facility] DOPPLER [facility] CT ABDOMEN PELVIS WO 2021-12-16 06:10:43 Boyd Claros [facility] CONTRAST [facility] CT THORAX W CONTRAST 2021-12-16 02:02:00 Brigida Ulloa [facility] LIPASE 2021-12-15 22:37:[address] [facility] TROPONIN I 2021-12-15 22:37:[address] [facility] THYROID STIMULATING 2021-12-15 22:37:[address] Laila [facility] HORMONE [facility] COMP. METABOLIC PANEL 2021-12-15 22:37:00 Gorge [facility] ([id number]) [facility] [place] CBC WITH DIFF 2021-12-15 22:37:[address] [facility] N-TERMINAL PRO-BNP 2021-12-15 22:37:00 Laila [facility] XR CHEST 2 VW 2021-12-15 22:22:00 Brigida Ulloa [facility] [place] MAGNESIUM 2021-11-05 16:31:00 America edmond [facility] COMP. METABOLIC PANEL 2021-11-05 16:31:00 Nader Cross [facility] ([id number]) Medical Branch LIPID PANEL (28883)(TOTAL 2021-11-05 16:31:00 Jorge Fernández [facility] CHOLESTEROL, [facility] TRIGLYCERIDES, HDL) TROPONIN I 2021-11-05 09:50:00 America edmond [facility] FREE T4 2021-11-05 09:50:00 Jorge Fernández [facility] THYROID STIMULATING 2021-11-05 09:50:00 Jorge Fernández [facility] HORMONE [facility] N-TERMINAL PRO-BNP 2021-11-05 09:50:00 Nader Cross [facility] TROPONIN I 2021-11-04 23:44:00 America edmond [facility] TRANSTHORACIC ECHO (TTE) 2021-11-04 17:37:10 Nader Cross [facility] COMPLETE W/ CONTRAST Medical [place] PHOSPHORUS 2021-11-04 12:05:00 America edmond [facility] URIC ACID 2021-11-04 12:05:00 America edmond [facility] MAGNESIUM 2021-11-04 12:05:00 America edmond [facility] TROPONIN I 2021-11-04 12:05:00 America edmond [facility] LIPID PANEL (44822)(TOTAL 2021-11-04 12:05:00 Nader Cross [facility] TRIGLY[facility], HDL) VITAMIN B12, LEVEL 2021-11-04 08:48:00 Nader Cross [facility] TROPONIN I 2021-11-04 08:48:00 America edmond [facility] SEDIMENTATION RATE 2021-11-04 08:48:00 America edmond [facility] VITAMIN D, 25-OH 2021-11-04 08:48:00 America edmond [facility] PROCALCITONIN 2021-11-04 08:48:00 America edmond [facility] URINE DRUG (IMMUNOASSAY) 2021-11-04 08:08:00 Nader Cross [facility] SCREEN URINALYSIS 2021-11-04 08:08:00 Nader Cross [facility] URINE CULTURE 2021-11-04 08:08:00 America edmond [facility] UREA NITROGEN, URINE 2021-11-04 08:08:00 Nader Cross [facility] SODIUM, URINE RANDOM 2021-11-04 08:08:00 America edmond [facility] PROTEIN CREAT RATIO URINE 2021-11-04 08:08:00 Nader Cross [facility] RESPIRATORY PANEL BY PCR 2021-11-04 08:08:[address] [facility] COVID-19 (ID NOW RAPID 2021-11-04 04:03:00 Sheba Lott [facility] TESTING) Medical [place] LAB ONLY COVID 2021-11-04 04:03:00 Sheba Lott [facility] XR CHEST 1 VW 2021-11-04 02:57:00 Birgit Lemon [facility] ACUTE CARE ARTERIAL BLOOD 2021-11-04 02:57:00 [facility] Branch LIPASE 2021-11-04 02:45:00 Birgit Lemon [facility] TROPONIN I 2021-11-04 02:45:00 Birgit Lemon [facility] COMP. METABOLIC PANEL 2021-11-04 02:45:00 Birgit Lemon [facility] ([id number]) Medical Branch CBC WITH DIFF 2021-11-04 02:45:00 Birgit Lemon [facility] GLYCOSYLATED HEMOGLOBIN 2021-11-04 02:45:00 Nader Cross [facility] (A1C) [facility] PROTHROMBIN TIME / INR 2021-11-04 02:45:00 Birgit Lemon [facility] ACTIVATED PARTIAL 2021-11-04 02:45:00 Birgit Lemon [facility] THRMPLAS [facility] HB ECG ROUTINE & RHYTHM 2021-11-04 02:13:29 Birgit Lemon [facility] NOTICE OF PRIVACY 2021-11-04 01:59:17 Doctor Unassigned, [facility] PRACTICES [place] [facility] [place] CONSENT/REFUSAL FOR 2021-11-04 01:58:37 Doctor Unassigned, [facility] DIAGNOSIS AND TREATMENT [place] [facility] Plan of Care Planned Activity Planned Date Details Comments Source Goal Plan of Care Note [code = 88491-1] Goal Plan of Care Note [code = 41723-1] Goal Plan of Care Note [code = 55055-8] Goal Plan of Care Note [code = 49096-6] Goal Plan of Care Note [code = 97453-5] Goal Plan of Care Note [code = 29088-3] Goal Plan of Care Note [code = 08513-4] Goal Plan of Care Note [code = 69595-3] Goal Plan of Care Note [code = 37084-2] Goal Plan of Care Note [code = 74696-6] Goal Plan of Care Note [code = 41362-9] Goal Plan of Care Note [code = 92398-4] Goal Plan of Care Note [code = 55631-0] Goal Plan of Care Note [code = 62939-5] Goal Plan of Care Note [code = 16567-2] Goal Plan of Care Note [code = 41450-3] Goal Plan of Care Note [code = 55455-4] Goal Plan of Care Note [code = 70269-6] Goal Plan of Care Note [code = 08861-9] Goal Plan of Care Note [code = 05083-0] Goal Plan of Care Note [code = 70512-0] Goal Plan of Care Note [code = 72784-7] Goal Plan of Care Note [code = 73332-8] Goal Plan of Care Note [code = 18079-0] Goal Plan of Care Note [code = 59003-9] Goal Plan of Care Note [code = 51820-2] Goal Plan of Care Note [code = 62889-8] Goal Plan of Care Note [code = 70342-7] Goal Plan of Care Note [code = 02846-2] Goal Plan of Care Note [code = 76773-4] Goal Plan of Care Note [code = 57581-1] Goal Plan of Care Note [code = 85975-5] Goal Plan of Care Note [code = 92555-4] Goal Plan of Care Note [code = 15143-3] Encounters Start End Encounter Admission Attending Care Care Encounter Source Date/Time Date/Time Type Type Clinicians Facility Department ID 2022-06-03 2022-06-[address] [facility] [id number] Univers 00:00:00 00:00:00 CHRISTOPHER ity of [facility] 2022-06-01 2022-06-01 Telephone Amber [facility] [id number] Univers 00:00:00 00:00:00 Christopher SPECIALTY [id number] [place] [id number] Wy beni POSADAS [address] [place] [address] 2022-05-20 2022-05-20 [facility], [facility] [id number] Univers 13:15:00 13:30:00 Visit Christopher Clark SPECIALTY [id number] [id number] [id number] Wy dicneeru POSADAS [address] [facility] 2022-05-20 2022-05-20 Office Amber [facility] [id number] Univers 11:30:00 12:00:00 Visit Christopher SPECIALTY [id number] [place] [id number] Wy beni POSADAS [address] [place] [address] 2022-05-20 2022-05-[address] [facility] [id number] Univers 11:30:00 11:30:00 CHRISTOPHER ity of [facility] 2022-05-05 2022-05-05 Telephone ANDREE Clark [id number] Univers 00:00:00 00:00:[address] [facility] [id number] i ty of CL[place] [id number] [facility] 071 Branch 2022-05-04 2022-05-04 Orders Doctor CARL [id number] Univers 00:00:00 00:00:00 Only Unassigned, RACHEL [id number] ity of [place] [facility] 4.2.7.2.686 [place] [id number] [facility] 009 Branch 2022-04-07 2022-04-07 Outpatient [id number] 00:00:00 00:00:00 Visit [id number] 2022-03-03 2022-03-03 Outpatient [id number] 00:00:00 00:00:00 Visit [id number] 2021-12-15 2021-12-17 [facility] [id number] Univers 15:52:00 21:23:[address] [facility] 2021-12-15 2021-12-17 [id number] Univers 15:52:00 21:23:00 Boyd Claros [id number] ity of Laly Mehta [facility] 4.2.7.2.686 [place] Sarahi Victor [id number] Medical 095 Branch 2021-11-06 2021-11-06 Transition DONAVAN Davidson [id number] Univers 00:00:00 00:00:00 of Care Nickie LOYD [id number] it y of [place] 4.2.7.2.686 Ray kay [id number] [facility] 403 Branch 2021-11-03 2021-11-05 Outpatient X [facility] [id number] Univers 21:06:00 18:36:00 ALEXIS ity of [facility] 2021-11-03 2021-11-05 [facility] Sheba Lott [facility] [id number] [facility] 21:06:00 18:36:00 Encounter Nader Cross [id number] ity of Alexis Isaac 4.2.7.2.686 [facility] [id number] [place] [id number] Branch Results Test Description Test Time Test Comments Results Result Comments Source BASIC METABOLIC PANEL (NA, K, CL, CO2, GLUCOSE, BUN, 2021-11 18:59:33 CREATININE, CA) Test Item Value Reference Range Interpretation Comme nts NA (test code = 1837703016) 138 mmol/L 135-145 K (test code = 1224748709) 4.2 mmol/L 3.5-5.0 CL (test code = 2424040706) 97 mmol/L 98-108 L CO2 TOTAL (test code = 2477376535) 38 mmol/L 23-31 H AGAP (test code = 0179418707) 2-16 BUN (test code = 0545698953) 16 mg/dL 7-23 GLUCOSE (test code = 1796098071) 71 mg/dL 70-110 CREATININE (test code = 0.65 mg/dL 0.60-1.25 1424026603) CALCIUM (test code = 1236871714) 8.8 mg/dL 8.6-10.6 eGFR (test code = 9336165754) mL/min/1.73m2 TIFFANY (test code = TIFFANY) Association [...] tests). Lab Interpretation (test code = Abnormal 33634-4) [facility] (NA, K, CL, CO2, GLUCOSE, BUN, CREATININE, CA)2021-12-17 01:21:47 Test Item Value Reference Range Interpretation Comments NA (test code = 135 mmol/L 135-145 6043524231) K (test code = 3.7 mmol/L 3.5-5.0 2740706875) CL (test code = 100 mmol/L 98-108 4909035772) CO2 TOTAL (test code = 33 mmol/L 23-31 H 2665750690) AGAP (test code = 2-16 2199085725) BUN (test code = 14 mg/dL 7-23 5371296598) GLUCOSE (test code = 112 mg/dL 70-110 H 4795111983) CREATININE (test code = 0.65 mg/dL 0.60-1.25 5834671197) CALCIUM (test code = 8.3 mg/dL 8.6-10.6 L 7769168711) eGFR (test code = mL/min/1.73m2 0216912276) TIFFANY (test code = TIFFANY) Association of [...] tests). Lab Interpretation Abnormal (test code = 04450-5) [facility] [id number] 00:35:35 Test Item Value Reference Range Interpretation Comments HCV Ab (test code = Positive 93385-5) HCV Semi-Quantitative (test code = 26277-9) TIFFANY (test code = Positive for HCV antibody. TIFFANY) This specimen has been reflexed to qualitative PCR test and submitted to [facility]. ?A report will be issued by that laboratory. ?If any questions, contact the Clinical Chemistry Director public relations counselor at [phone].APRI score < 0.5: Suggestive of little to no fibrosisAPRI score > 1.5: Suggestive of moderate to severe fibrosisAPRI score > 2.0: Highly suggestive of cirrhosis. [facility] [id number] 04:08:35 Test Item Value Reference Range Interpretation Comments TSH (test code = See_Comment [Automated message] [id number]) The system whic h generated this result transmitted ref erence range: 0.45 - 4 .70 mIU/L. The refe rence range was not u sed to interpret this result as normal/abnor mal. Lab Interpretation (test Normal code = 84801-9) [facility] [id number] 01:35:18 Test Item Value Reference Range Interpretation Comments NT-proBNP (test code 74 pg/mL See_Comment [Autom ated = 1634660742) message] The system which generated this result transmitted reference range : <=125. The reference range was not used to interpret this result as normal/abnormal . TIFFANY (test code = TIFFANY) Biotin has been reported to cause a negative bias, interpret results relative to patient's use of biotin. Lab Interpretation Normal (test code = 05976-6) [facility] [id number] 00:16:20 Test Item Value Reference Interpretation Comments Range TROPONIN I (test 0.015 ng/mL See_Comment [Automated code = 5055861664) message] The system which generated this result [...] biotin. Lab Interpretation Normal (test code = 24708-9) [facility] [place] [facility] CenterCOMP. METABOLIC PANEL ([id number])2021-12-15 23:32:43 Test Item Value Reference Range Interpretation Comments NA (test code = 134 mmol/L 135-145 L 1821554466) K (test code = 4.8 mmol/L 3.5-5.0 Slight 9416088521) hemolysis CL (test code = 99 mmol/L 98-108 6800479392) CO2 TOTAL (test code 28 mmol/L 23-31 = 9171713451) AGAP (test code = 2-16 8430500242) BUN (test code = 12 mg/dL 7-23 Slight 0001674712) hemolysis GLUCOSE (test code = 84 mg/dL 70-110 9351165744) CREATININE (test code 0.58 mg/dL 0.60-1.25 L = 9916356740) TOTAL BILI (test code 2.4 mg/dL 0.1-1.1 H = 9671457911) CALCIUM (test code = 8.7 mg/dL 8.6-10.6 0723392807) T PROTEIN (test code 6.4 g/dL 6.3-8.2 = 4446624538) ALBUMIN (test code = 3.4 g/dL 3.5-5.0 L 4445374213) ALK PHOS (test code = 101 U/L 34-122 Slight 1370930972) hemolysis ALTv (test code = 31 U/L 5-50 1742-6) AST(SGOT) (test code 60 U/L 13-40 H Slight = 4430081482) hemolysis eGFR (test code = mL/min/1.73m2 9972778566) TIFFANY (test code = TIFFANY) Association of [...] tests). Lab Interpretation Abnormal (test code = 49861-1) [facility] [id number] 23:32:43 Test Item Value Reference Range Interpretation Comments LIPASE (test code = 6402437783) 155 U/L 0-220 Lab Interpretation (test code = Normal 02680-3) [facility]CBC WITH [id number] 23:10:57 Test Item Value Reference Range Interpretation Comments WBC (test code = See_Comment L [Automated 8090-2) message] The sy stem which generated this result transmitted reference range : 4.20 - 10.70 10*3/?L. The reference range was not used to interpret this result as normal/abnormal . RBC (test code = See_Comment [Automated 639-8) message] The sy stem which generated this [...] RDW-SD (test code = 50.9 fL 38.5-51.6 29874-7) RDW-CV (test code = 14.6 % 12.1-15.4 788-0) PLT (test code = See_Comment L [Automated 777-3) message] The sy stem which generated this result transmitted reference range : 150 - 328 10*3/ ?L. The reference r laura was not used to interpret this result as normal/abnormal . MPV (test code = 9.5 fL 9.8-13.0 L 21918-5) IPF % (test code = 1.3 % 1.2-10.7 Platelet count 8413836138) measured by fluorescence method. NRBC/100 WBC (test See_Comment [Automat ed code = 4007759241) message] The system which generated this result transmitted reference range : 0.0 - 10.0 /100 WBCs. The refer ence range was not u sed to interpret th is result as normal/abnormal . NRBC x10^3 (test code <0.01 See_Comment [Auto mated = 9184292089) message] The s ystem which generated this result transmitted reference range : 10*3/?L. The reference range was not used to interpret this result as normal/abnormal . GRAN MAT (NEUT) % 55.2 % (test code = 770-8) IMM GRAN % (test code 1.00 % = 3062915866) LYMPH % (test code = 25.7 % 736-9) MONO % (test code = 14.7 % 5905-5) EOS % (test code = 2.9 % 713-8) BASO % (test code = 0.5 % 706-2) GRAN MAT x10^3(ANC) 2.30 10*3/uL 1.99-6.95 (test code = 8791545837) IMM GRAN x10^3 (test 0.04 10*3/uL 0.00-0.06 code = 3873739966) LYMPH x10^3 (test code 1.07 10*3/uL 1.09-3.23 L = 731-0) MONO x10^3 (test code 0.61 10*3/uL 0.36-1.02 = 742-7) EOS x10^3 (test code = 0.12 10*3/uL 0.06-0.53 711-2) BASO x10^3 (test code <0.03 0.01-0.09 = 704-7) Lab Interpretation Abnormal (test code = 42015-3) [facility] (08604)(TOTAL CHOLESTEROL, TRIGLYCERIDES, HDL)2021-11-05 17:05:42 Test Item Value Reference Range Interpretation Comments CHOL (test code = 186 mg/dL 120-200 9070240571) HDL (test code = 45 mg/dL >40 4385582291) HDLC RATIO (test code = See_Comment [Au tomated message] 7427972954) The system [employer] generated this result transmit michael reference range : <=5.0. The refe rence range was not u sed to interpret th is result as normal/abnormal . TRIG (test code = 64 mg/dL 30-170 3188234095) LDL CHOL (test code = 128 mg/dL See_Comment [Auto mated message] 81039-7) The system [employer] generated this result transmit michael reference range : <=160. The refe rence range was not u sed to interpret th is result as normal/abnormal . VLDL (test code = 13 mg/dL 5-60 9105304245) Lab Interpretation (test Normal code = 26726-3) [facility]. METABOLIC PANEL (55904)2021-11-05 17:05:21 Test Item Value Reference Range Interpretation Comments NA (test code = 138 mmol/L 135-145 9283334844) K (test code = 4.6 mmol/L 3.5-5.0 4552025816) CL (test code = 104 mmol/L 98-108 5383252043) CO2 TOTAL (test code = 30 mmol/L 23-31 0944605981) AGAP (test code = 2-16 0432187832) BUN (test code = 20 mg/dL 7-23 5700955622) GLUCOSE (test code = 102 mg/dL 70-110 0708916376) CREATININE (test code = 0.63 mg/dL 0.60-1.25 6957662025) TOTAL BILI (test code = 1.2 mg/dL 0.1-1.1 H 5740427282) CALCIUM (test code = 9.0 mg/dL 8.6-10.6 6465146716) T PROTEIN (test code = 6.6 g/dL 6.3-8.2 5283562658) ALBUMIN (test code = 3.2 g/dL 3.5-5.0 L 2961231380) ALK PHOS (test code = 75 U/L 34-122 1508498842) ALTv (test code = 35 U/L 5-50 1742-6) AST(SGOT) (test code = 39 U/L 13-40 0860763065) eGFR (test code = mL/min/1.73m2 1488909263) TIFFNAY (test code = TIFFANY) Association of Glomerular [...] tests). Lab Interpretation Abnormal (test code = 14662-6) [facility]MAG[facility]UM20[facility]-07 17:05:21 Test Item Value Reference Range Interpretation Comments MAGNESIUM (test code = 4714392977) 1.9 mg/dL 1.7-2.4 Lab Interpretation (test code = Normal 88064-6) [facility] CenterTHYROID STIMULATING [id number] 12:35:38 Test Item Value Reference Range Interpretation Comments TSH (test code = See_Comment [Automated message] 3027368872) The system [employer] generated this result transmitted ref erence range: 0.45 - 4 .70 mIU/L. The refe rence range was not u sed to interpret this result as normal/abnor mal. Lab Interpretation (test Normal code = 12764-0) [facility] CenterFREE [id number] 12:22:17 Test Item Value Reference Range Interpretation Comments FREE T4 (test code = See_Comment [Autom ated message] 5514241111) The system [employer] generated this result transmitted ref erence range: 0.78 - 2 .20 ng/dL:. The ref erence range was not u sed to interpret this result as normal/abnor mal. Lab Interpretation (test Normal code = 34550-2) [facility] CenterTROPONIN [id number] 12:16:59 Test Item Value Reference Interpretation Comments Range TROPONIN I (test 0.026 ng/mL See_Comment [Automated code = 4322125660) message] The system which generated this result [...] biotin. Lab Interpretation Normal (test code = 88686-3) [facility] CenterN-TERMINAL [id number] 12:13:58 Test Item Value Reference Range Interpretation Comments NT-proBNP (test code 228 pg/mL See_Comment H [Autom ated = 6684770046) message] The system which generated this result transmitted reference range : <=125. The reference range was not used to interpret this result as normal/abnormal . TIFFANY (test code = TIFFANY) Biotin has been reported to cause a negative bias, interpret results relative to patient's use of biotin. Lab Interpretation Abnormal (test code = 36343-1) [facility] 00:59:55 Test Item Value Reference Range Interpretation Comments LVIDD (test code = 4.50 cm 2652037049) IVS (test code = 1.10 cm 8548934956) Interventricular Septum 1.10 cm Diastolic Thickness by 2D (test code = 0182633) LVPWD (test code = 1.24 cm 5338128768) PW (test code = 1.24 cm 0.6-1.0 0180764238) LVOT diameter (test code 1.92 cm = 8340959338) ACS (test code = 1.82 cm 0111175471) Ao root annulus (test 3.5 cm code = 1812092974) Ao root diam (test code 3.50 cm = 6207810372) Aortic root (test code = 3.5 cm 4198146418) LA size (test code = 4.6 cm 9541053276) E wave decelartion time 0.21 s (test code = 3999679710) MV Peak E William (test code 64.9 cm/s = 5321121800) MV Peak A William (test code 83.8 cm/s = 9374225003) E/A ratio (test code = ratio 9963779559) MV Prop V (test code = 65.80 cm/s 2694633221) Tapse (test code = 1.92 cm 5925577834) LVOT stroke volume (test 67.60 cm3 code = 2538980899) LVOT peak william (test code 110.2 cm/s = 9533877530) LVOT mn grad (test code mmHg = 5940853331) AV LVOT peak gradient mmHg (test code = 4850922507) LVOT peak VTI (test code 23.3 cm = 3280951420) LV V1 mean (test code = 62.80 cm/s 2407281422) Aortic valve mean 129.2 cm/s velocity (test code = 1387222989) Ao peak william (test code = 230.1 cm/s 6039337107) Ao VTI (test code = 39.0 cm 1496732014) AV area by cont VTI 1.7 cm2 (test code = 5020801093) AV area peak william (test 1.4 cm2 code = 4066031819) Ao max PG (test code = 21.20 mm[Hg] 9918979340) AV peak gradient (test mmHg code = 5286230511) AV valve area (test code 1.73 cm2 = 4659669025) AV mean gradient (test mmHg code = 8717025867) TR Peak William (test code = 233.7 cm/s 1664408311) Triscuspid Valve mmHg Regurgitation Peak Gradient (test code = 9892041440) EF(Teich) (test code = 60.40 % 5961155088) LVIDS (test code = 3.10 cm 9398844210) FS (test code = 32 % 1182563515) EF - 2D (test code = 60.40 % 08136179) Radiology Study observation (narrative) (test code = 92833-9) TIFFANY (test code = TIFFANY) ?Left?Ventricle: Left [...] (99.8 kg) 2.23 sq meters 130/95 88 [facility] CenterSCOTT [id number] 00:28:36 Test Item Value Reference Interpretation Comments Range TROPONIN I (test 0.015 ng/mL See_Comment [Automated code = 7342674050) message] The system which generated this result [...] biotin. Lab Interpretation Normal (test code = 05334-8) [facility] CenterVITAMIN D, [id number] 17:50:34 Test Item Value Reference Range Interpretation Comments VIT D 25OH (test code = 19 ng/mL 25-80 L 05654-2) TIFFANY (test code = TIFFANY) Deficiency: <20 ng/mLInsufficiency: 20-24 ng/mLOptimal: 25-80 ng/mL Lab Interpretation (test Abnormal code = 88426-4) [facility] CenterPROCALCITONIN2022-04-06 16:54:29 Test Item Value Reference Range Interpretation Comments Procalcitonin (test 0.03 ng/mL <0.07 code = 3708763264) TIFFANY (test code = TIFFANY) INTERPRETATION OF [...] lung abscess/empyema. For further information please refer to:[email or web address] Lab Interpretation Normal (test code = 78494-5) [facility] CenterVITAMIN B12, [id number] 16:39:51 Test Item Value Reference Range Interpretation Comments VIT B12 (test code = 636 pg/mL 240-930 4978981435) TIFFANY (test code = TIFFANY) Biotin has been reported to cause a positive bias, interpret results relative to patient's use of biotin. Lab Interpretation (test Normal code = 71977-5) [facility] CenterLIPID PANEL (95989)(TOTAL CHOLESTEROL, TRIGLYCERIDES, HDL)2021-11-04 15:21:56 Test Item Value Reference Range Interpretation Comments CHOL (test code = 183 mg/dL 120-200 8015403182) HDL (test code = 40 mg/dL >40 L 5714769111) HDLC RATIO (test code = See_Comment [Au tomated message] 9885173045) The system [employer] generated this result transmit michael reference range : <=5.0. The refe rence range was not u sed to interpret th is result as normal/abnormal . TRIG (test code = 57 mg/dL 30-170 6228398879) LDL CHOL (test code = 132 mg/dL See_Comment [Auto mated message] 68364-2) The system [employer] generated this result transmit michael reference range : <=160. The refe rence range was not u sed to interpret th is result as normal/abnormal . VLDL (test code = 11 mg/dL 5-60 2422363442) Lab Interpretation (test Abnormal code = 55290-0) [facility] CenterMAGNESIUM2022-04-06 15:21:56 Test Item Value Reference Range Interpretation Comments MAGNESIUM (test code = 8943366505) 1.6 mg/dL 1.7-2.4 L Lab Interpretation (test code = Abnormal 85811-2) [facility] CenterPHOSPHORUS2022-04-06 15:21:36 Test Item Value Reference Range Interpretation Comments PHOSPHORUS (test code = 6049717117) 3.1 mg/dL 2.5-5.0 Lab Interpretation (test code = Normal 16111-3) [facility] CenterURIC [id number] 15:21:16 Test Item Value Reference Range Interpretation Comments URIC ACID (test code = 4837932767) 4.4 mg/dL 3.6-8.0 Lab Interpretation (test code = Normal 05853-0) [facility] CenterTROPONIN [id number] 13:34:13 Test Item Value Reference Interpretation Comments Range TROPONIN I (test 0.038 ng/mL See_Comment H [Automated code = 6270882808) message] The system which generated this result [...] biotin. Lab Interpretation Abnormal (test code = 75991-8) [facility] CenterSEDIMENTATION [id number] 11:19:15 Test Item Value Reference Range Interpretation Comments ESR (test code = See_Comment [Automated message] 6252020196) The system [employer] generated this result transmitted ref erence range: 0 - 10 m m/HR. The reference r laura was not used to interpret this result as normal/abnor mal. Lab Interpretation (test Normal code = 40273-9) [facility] CenterTROPONIN [id number] 10:43:39 Test Item Value Reference Interpretation Comments Range TROPONIN I (test 0.037 ng/mL See_Comment H Hemolyzed code = 6594563604) specimen [Automated message] The system which generated [...] biotin. Lab Interpretation Abnormal (test code = 69399-7) [facility] CenterGLYCOSYLATED HEMOGLOBIN (A1C)2021-11-04 09:01:59 Test Item Value Reference Range Interpretation Comments HGB A1C (test code = 6.0 % 4.0-5.7 H 4548-4) TIFFANY (test code = TIFFANY) Reference RangesNormal: <5.7%Prediabetes: 5.7 - 6.4%Diabetes: > 6.5% Lab Interpretation (test Abnormal code = 54114-9) [facility] CenterTROPONIN [id number] 03:17:54 Test Item Value Reference Interpretation Comments Range TROPONIN I (test 0.035 ng/mL See_Comment H [Automated code = 7177160638) message] The system which generated this result [...] biotin. Lab Interpretation Abnormal (test code = 24447-3) [facility] CenterCOMP. METABOLIC PANEL (13280)2021-11-04 03:06:14 Test Item Value Reference Range Interpretation Comments NA (test code = 136 mmol/L 135-145 1829743329) K (test code = 4.4 mmol/L 3.5-5.0 5439065969) CL (test code = 99 mmol/L 98-108 4339953754) CO2 TOTAL (test code = 29 mmol/L 23-31 5147657878) AGAP (test code = 2-16 4460940038) BUN (test code = 22 mg/dL 7-23 8471058543) GLUCOSE (test code = 164 mg/dL 70-110 H 6208888593) CREATININE (test code = 0.72 mg/dL 0.60-1.25 8619087200) TOTAL BILI (test code = 1.8 mg/dL 0.1-1.1 H 7596514590) CALCIUM (test code = 9.3 mg/dL 8.6-10.6 0051068004) T PROTEIN (test code = 7.5 g/dL 6.3-8.2 8024026603) ALBUMIN (test code = 3.7 g/dL 3.5-5.0 8315266336) ALK PHOS (test code = 98 U/L 34-122 7690382598) ALTv (test code = 35 U/L 5-50 1742-6) AST(SGOT) (test code = 48 U/L 13-40 H 0940178063) eGFR (test code = mL/min/1.73m2 8147413527) TIFFANY (test code = TIFFANY) Association of [...] tests). Lab Interpretation Abnormal (test code = 67727-0) [facility] CenterLIPASE, [id number] 03:05:54 Test Item Value Reference Range Interpretation Comments LIPASE (test code = 2078959507) 253 U/L 0-220 H Lab Interpretation (test code = Abnormal 57621-4) [facility] CenteraPTT2022-04-06 03:03:13 Test Item Value Reference Range Interpretation Comments APTT Patient (test See_Comment [Automat ed code = 3173-2) message] The system which generated this result transmitted reference range : 23 - 38 Seconds . The reference range was not used to interpr et this result as normal/abnormal . TIFFANY (test code = TIFFANY) The [facility] patient population mean normal value for aPTT is 30 seconds. Lab Interpretation Normal (test code = 22712-7) [facility] CenterPROTHROMBIN TIME / [id number] 03:01:34 Test Item Value Reference Range Interpretation [...] tions. Lab Interpretation (test Abnormal code = 17942-6) [facility] CenterCB WITH [id number] 02:55:12 Test Item Value Reference Range Interpretation Comments WBC (test code = See_Comment [Automated 4190-2) message] The sy stem which generated this result transmitted reference range : 4.20 - 10.70 10*3/?L. The reference range was not used to interpret this result as normal/abnormal . RBC (test code = See_Comment H [Automated 9-8) message] The sy stem which generated this [...] RDW-SD (test code = 50.4 fL 38.5-51.6 96040-1) RDW-CV (test code = 14.8 % 12.1-15.4 788-0) PLT (test code = See_Comment L [Automated 777-3) message] The sy stem which generated this result transmitted reference range : 150 - 328 10*3/ ?L. The reference r laura was not used to interpret this result as normal/abnormal . MPV (test code = 10.3 fL 9.8-13.0 58741-5) NRBC/100 WBC (test See_Comment [Automat ed code = 7762413924) message] The system which generated this result transmitted reference range : 0.0 - 10.0 /100 WBCs. The refer ence range was not u sed to interpret th is result as normal/abnormal . NRBC x10^3 (test code <0.01 See_Comment [Auto mated = 8335522355) message] The s ystem which generated this result transmitted reference range : 10*3/?L. The reference range was not used to interpret this result as normal/abnormal . GRAN MAT (NEUT) % 72.3 % (test code = 770-8) IMM GRAN % (test code 1.70 % = 1634495348) LYMPH % (test code = 16.5 % 736-9) MONO % (test code = 8.2 % 5905-5) EOS % (test code = 1.0 % 713-8) BASO % (test code = 0.3 % 706-2) GRAN MAT x10^3(ANC) 7.35 10*3/uL 1.99-6.95 H (test code = 6657513755) IMM GRAN x10^3 (test 0.17 10*3/uL 0.00-0.06 H code = 8528514038) LYMPH x10^3 (test code 1.67 10*3/uL 1.09-3.23 = 731-0) MONO x10^3 (test code 0.83 10*3/uL 0.36-1.02 = 742-7) EOS x10^3 (test code = 0.10 10*3/uL 0.06-0.53 711-2) BASO x10^3 (test code 0.03 10*3/uL 0.01-0.09 = 704-7) Lab Interpretation Abnormal (test code = 09122-9) [facility] CenterPSA, TOTAL [ADDED]2017-09-14 00:00:00 Test Item Value Reference Range Interpretation Comments PSA, TOTAL (test code = 2606) 0.82 NG/ML PSA, TOTAL [ADDED]2017-09-14 00:00:00 Test Item Value Reference Range Interpretation Comments PSA, TOTAL (test code = 2606) 0.82 NG/ML PSA, TOTAL [ADDED]2017-09-14 00:00:00 Test Item Value Reference Range Interpretation Comments PSA, TOTAL (test code = 2606) 0.82 NG/ML NOTE: [ADDED]2017-09-14 00:00:00 Test Item Value Reference Range Interpretation Comments NOTE: (test code = 998) (NOTE) PSA, TOTAL [ADDED]2017-09-14 00:00:00 Test Item Value Reference Range Interpretation Comments PSA, TOTAL (test code = 2606) 0.82 NG/ML PSA, TOTAL [ADDED]2017-09-14 00:00:00 Test Item Value Reference Range Interpretation Comments PSA, TOTAL (test code = 2606) 0.82 NG/ML NOTE: [ADDED]2017-09-14 00:00:00 Test Item Value Reference Range Interpretation Comments NOTE: (test code = 998) (NOTE) HEMOGLOBIN [id number] 00:00:00 Test Item Value Reference Range Interpretation Comments HEMOGLOBIN A1c (test code = 15973) 5.4 % HEMOGLOBIN [id number] 00:00:00 Test Item Value Reference Range Interpretation Comments HEMOGLOBIN A1c (test code = 18275) 5.4 % HEMOGLOBIN [id number] 00:00:00 Test Item Value Reference Range Interpretation Comments HEMOGLOBIN A1c (test code = 77976) 5.4 % CBC W/AUTO [id number] 00:00:00 Test Item Value Reference Range Interpretation Comments WBC (test code = 1001) 5.4 K/UL RBC (test code = 1002) 4.47 M/UL HEMOGLOBIN (test code = 1003) 13.6 G/DL HEMATOCRIT (test code = 1004) 39.4 % MCV (test code = 1005) 88.1 fL MCH (test code = 1006) 30.4 PG MCHC (test code = 1007) 34.5 G/DL RDW (test code = 1038) 12.6 % NEUTROPHILS (test code = 1008) 83.7 % LYMPHOCYTES (test code = 1010) 13.1 % MONOCYTES (test code = 1011) 2.6 % EOSINOPHILS (test code = 1012) 0.4 % BASOPHILS (test code = 1013) 0.2 % PLATELET COUNT (test code = 1015) 135 K/UL CBC W/AUTO [id number] 00:00:00 Test Item Value Reference Range Interpretation Comments WBC (test code = 1001) 5.4 K/UL RBC (test code = 1002) 4.47 M/UL HEMOGLOBIN (test code = 1003) 13.6 G/DL HEMATOCRIT (test code = 1004) 39.4 % MCV (test code = 1005) 88.1 fL MCH (test code = 1006) 30.4 PG MCHC (test code = 1007) 34.5 G/DL RDW (test code = 1038) 12.6 % NEUTROPHILS (test code = 1008) 83.7 % LYMPHOCYTES (test code = 1010) 13.1 % MONOCYTES (test code = 1011) 2.6 % EOSINOPHILS (test code = 1012) 0.4 % BASOPHILS (test code = 1013) 0.2 % PLATELET COUNT (test code = 1015) 135 K/UL CBC W/AUTO [id number] 00:00:00 Test Item Value Reference Range Interpretation Comments WBC (test code = 1001) 5.4 K/UL RBC (test code = 1002) 4.47 M/UL HEMOGLOBIN (test code = 1003) 13.6 G/DL HEMATOCRIT (test code = 1004) 39.4 % MCV (test code = 1005) 88.1 fL MCH (test code = 1006) 30.4 PG MCHC (test code = 1007) 34.5 G/DL RDW (test code = 1038) 12.6 % NEUTROPHILS (test code = 1008) 83.7 % LYMPHOCYTES (test code = 1010) 13.1 % MONOCYTES (test code = 1011) 2.6 % EOSINOPHILS (test code = 1012) 0.4 % BASOPHILS (test code = 1013) 0.2 % PLATELET COUNT (test code = 1015) 135 K/UL COMPREHENSIVE METABOLIC [id number] 00:00:00 Test Item Value Reference Range Interpretation Comments GLUCOSE (test code = 2217) 120 MG/DL BUN (test code = 2208) 22 MG/DL CREATININE (test code = 2214) 0.81 MG/DL eGFR AMER. (test code 113 ML/MIN/1.73 = 47849) eGFR NON- AMER. (test 97 ML/MIN/1.73 code = 07959) CALC BUN/CREAT (test code = 27 RATIO 2235) SODIUM (test code = 2231) 138 MEQ/L POTASSIUM (test code = 2228) 4.5 MEQ/L CHLORIDE (test code = 2215) 99 MEQ/L CARBON DIOXIDE (test code = 26 MEQ/L 220) CALCIUM (test code = 2209) 9.5 MG/DL PROTEIN, TOTAL (test code = 8.2 G/DL 2228) ALBUMIN (test code = 2201) 4.2 G/DL CALC GLOBULIN (test code = 4.0 G/DL 2240) CALC A/G RATIO (test code = 1.1 RATIO 2234) BILIRUBIN, TOTAL (test code = 0.5 MG/DL 2206) ALKALINE PHOSPHATASE (test 74 U/L code = 2204) AST (test code = 2218) 53 U/L ALT (test code = 2219) 47 U/L COMPREHENSIVE METABOLIC [id number] 00:00:00 Test Item Value Reference Range Interpretation Comments GLUCOSE (test code = 2217) 120 MG/DL BUN (test code = 2208) 22 MG/DL CREATININE (test code = 2214) 0.81 MG/DL eGFR AMER. (test code 113 ML/MIN/1.73 = 68657) eGFR NON- AMER. (test 97 ML/MIN/1.73 code = 11919) CALC BUN/CREAT (test code = 27 RATIO 2235) SODIUM (test code = 2231) 138 MEQ/L POTASSIUM (test code = 2228) 4.5 MEQ/L CHLORIDE (test code = 2215) 99 MEQ/L CARBON DIOXIDE (test code = 26 MEQ/L 2206) CALCIUM (test code = 2209) 9.5 MG/DL PROTEIN, TOTAL (test code = 8.2 G/DL 2228) ALBUMIN (test code = 2201) 4.2 G/DL CALC GLOBULIN (test code = 4.0 G/DL 2239) CALC A/G RATIO (test code = 1.1 RATIO 2234) BILIRUBIN, TOTAL (test code = 0.5 MG/DL 2206) ALKALINE PHOSPHATASE (test 74 U/L code = 2204) AST (test code = 2218) 53 U/L ALT (test code = 2219) 47 U/L LIPID [id number] 00:00:00 Test Item Value Reference Range Interpretation Comments CHOLESTEROL (test code = 2210) 176 MG/DL TRIGLYCERIDES (test code = 2232) 55 MG/DL HDL CHOLESTEROL (test code = 2220) 73 MG/DL CALC LDL CHOL (test code = 2237) 92 MG/DL RISK RATIO LDL/HDL (test code = 1.26 RATIO 2238) LIPID [id number] 00:00:00 Test Item Value Reference Range Interpretation Comments CHOLESTEROL (test code = 2210) 176 MG/DL TRIGLYCERIDES (test code = 2232) 55 MG/DL HDL CHOLESTEROL (test code = 2220) 73 MG/DL CALC LDL CHOL (test code = 2237) 92 MG/DL RISK RATIO LDL/HDL (test code = 1.26 RATIO 2238) HEMOGLOBIN [id number] 00:00:00 Test Item Value Reference Range Interpretation Comments HEMOGLOBIN A1c (test code = 57152) 5.4 % HEMOGLOBIN [id number] 00:00:00 Test Item Value Reference Range Interpretation Comments HEMOGLOBIN A1c (test code = 36954) 5.4 % CBC W/AUTO [id number] 00:00:00 Test Item Value Reference Range Interpretation Comments WBC (test code = 1001) 5.4 K/UL RBC (test code = 1002) 4.47 M/UL HEMOGLOBIN (test code = 1003) 13.6 G/DL HEMATOCRIT (test code = 1004) 39.4 % MCV (test code = 1005) 88.1 fL MCH (test code = 1006) 30.4 PG MCHC (test code = 1007) 34.5 G/DL RDW (test code = 1038) 12.6 % NEUTROPHILS (test code = 1008) 83.7 % LYMPHOCYTES (test code = 1010) 13.1 % MONOCYTES (test code = 1011) 2.6 % EOSINOPHILS (test code = 1012) 0.4 % BASOPHILS (test code = 1013) 0.2 % PLATELET COUNT (test code = 1015) 135 K/UL CBC W/AUTO [id number] 00:00:00 Test Item Value Reference Range Interpretation Comments WBC (test code = 1001) 5.4 K/UL RBC (test code = 1002) 4.47 M/UL HEMOGLOBIN (test code = 1003) 13.6 G/DL HEMATOCRIT (test code = 1004) 39.4 % MCV (test code = 1005) 88.1 fL MCH (test code = 1006) 30.4 PG MCHC (test code = 1007) 34.5 G/DL RDW (test code = 1038) 12.6 % NEUTROPHILS (test code = 1008) 83.7 % LYMPHOCYTES (test code = 1010) 13.1 % MONOCYTES (test code = 1011) 2.6 % EOSINOPHILS (test code = 1012) 0.4 % BASOPHILS (test code = 1013) 0.2 % PLATELET COUNT (test code = 1015) 135 K/UL COMPREHENSIVE METABOLIC [id number] 00:00:00 Test Item Value Reference Range Interpretation Comments GLUCOSE (test code = 2217) 120 MG/DL BUN (test code = 2208) 22 MG/DL CREATININE (test code = 2214) 0.81 MG/DL eGFR AMER. (test code 113 ML/MIN/1.73 = 38476) eGFR NON- AMER. (test 97 ML/MIN/1.73 code = 16252) CALC BUN/CREAT (test code = 27 RATIO 2235) SODIUM (test code = 2231) 138 MEQ/L POTASSIUM (test code = 2228) 4.5 MEQ/L CHLORIDE (test code = 2215) 99 MEQ/L CARBON DIOXIDE (test code = 26 MEQ/L 6) CALCIUM (test code = 2209) 9.5 MG/DL PROTEIN, TOTAL (test code = 8.2 G/DL 2228) ALBUMIN (test code = 2201) 4.2 G/DL CALC GLOBULIN (test code = 4.0 G/DL 0) CALC A/G RATIO (test code = 1.1 RATIO 2234) BILIRUBIN, TOTAL (test code = 0.5 MG/DL 2206) ALKALINE PHOSPHATASE (test 74 U/L code = 2204) AST (test code = 2218) 53 U/L ALT (test code = 2219) 47 U/L LIPID [id number] 00:00:00 Test Item Value Reference Range Interpretation Comments CHOLESTEROL (test code = 2210) 176 MG/DL TRIGLYCERIDES (test code = 2232) 55 MG/DL HDL CHOLESTEROL (test code = 2220) 73 MG/DL CALC LDL CHOL (test code = 2237) 92 MG/DL RISK RATIO LDL/HDL (test code = 1.26 RATIO 2238) URIC [id number] 00:00:00 Test Item Value Reference Range Interpretation Comments URIC ACID (test code = 2233) 4.6 MG/DL URIC [id number] 00:00:00 Test Item Value Reference Range Interpretation Comments URIC ACID (test code = 2233) 4.6 MG/DL URIC [id number] 00:00:00 Test Item Value Reference Range Interpretation Comments URIC ACID (test code = 2233) 4.6 MG/DL
[2022-06-17] MEDS ORDERED: IPRATROPIUM BROM 0.5MG/2.5ML ONE (13:13)
[2022-06-17] MEDS ORDERED: ACETAMINOPHEN 500 MG TAB ONE (13:13)
[2022-06-17] MEDS ORDERED: METHYLPREDNISOLONE 125 MG INJ ONE (13:13)
[2022-06-17] MEDS ORDERED: ALBUTEROL 2.5 MG/3 ML NEB SOL ONE ×2 (13:13→16:53)
[2022-06-17] MEDS ORDERED: MAGNESIUM SULFATE 1 gm IVPB 1 GM/100 ML BAG IV ONE (13:14)
[2022-06-17] MEDS ORDERED: ONDANSETRON 4 MG/2 ML VIAL ONE (13:15)
[2022-06-17] MEDS ORDERED: MORPHINE 4 MG/ML SYR ONE ×2 (13:16→16:31)
[2022-06-17 14:12] LABS: SARS-COV-2 RT PCR NEGATIVE (NEGATIVE)
[2022-06-17 14:20] LABS: Absolute Lymphocytes (CBC) 0.7 K/uL (0.7-4.9); Hematocrit 47.3 % (39.6-49.0); MCV 97.9 fL (80-100); MPV 7.3 fL (7.6-11.3); RBC Red Blood Cell Count 4.83 M/uL (4.33-5.43)
[2022-06-17 15:48] LABS: Potassium 4.4 mmol/L (3.5-5.1)
--- NOTE | 2022-06-17 16:30 | RAD REPORT ---
EXAM DESCRIPTION: RAD - Chest Single View - 06/17/2022 4:21 pm CLINICAL HISTORY: Cough COMPARISON: Chest Single View dated 12/30/2021; Chest Single View dated 12/09/2021; Chest Single View d ated 12/07/2021; Chest Single View dated 12/05/2021 FINDINGS: Lines: None. Lungs: Increased basilar interstitial markings. Pleural: No significant pleural effusions or pneumothorax. Cardiac: The heart size is within normal limits. Mediastinum: Within normal limits. Bones: No acute fractures. Other: None IMPRESSION: Increased interstitial markings in the lung bases nonspecific. This could reflect mild i nfection. No consolidative airspace disease or edema.
--- NOTE | 2022-06-17 16:50 | EDPHYS ---
Physician Documentation [facility] Name: Joseph Quach Age: 62 yrs Sex: Male : 1960 Arrival Date: 06/17/2022 Time: 12:13 Bed 26 Private MD: ED Physician Sohail Campbell HPI: 06/17 16:46 This 62 yrs old Male presents to ER via Wheelchair with complaints of Shortness Of kb Breath. 16:46 The patient has shortness of breath at rest. Onset: The symptoms/episode began/occurred kb 2 day(s) ago. Duration: The symptoms are continuous. The patient's shortness of breath is aggravated by exertion, is alleviated by application of supplemental oxygen. Associated signs and symptoms: Pertinent positives: nausea, vomiting, diarrhea, headache, bodyaches. Severity of symptoms: At their worst the symptoms were moderate in the emergency department the symptoms are unchanged. The patient has not experienced similar symptoms in the past. The patient has not recently seen a physician. Pt reports shortness of breath, headache, bodyaches, n/v/d for 2 days. denies fever. Reports diffuse soreness to abd from vomiting. Historical: - Allergies: 12:46 Fish Containing Products; kr3 - PMHx: 12:46 Myocardial infarction; Hypertensive disorder; High Cholesterol; COPD; cirrhosis of kr3 liver; angina pectoris; - PSHx: 12:46 None; kr3 - Immunization history:: Adult Immunizations up to date. - Social history:: Smoking status: Reported history of juuling and/or vaping. ROS: 16:46 Cardiovascular: Negative for chest pain, palpitations, and edema. kb 16:46 Constitutional: Positive for body aches. 16:46 Respiratory: Positive for shortness of breath. 16:46 Abdomen/GI: Positive for abdominal pain, nausea, vomiting, and diarrhea. 16:46 All other systems are negative. Exam: 16:47 Constitutional: This is a well developed, well nourished patient who is awake, alert, kb and in no acute distress. Head/Face: Normocephalic, atraumatic. ENT: Moist Mucous membranes Cardiovascular: Regular rate and rhythm with a normal S1 and S2. No gallops, murmurs, or rubs. No pulse deficits. Respiratory: Respirations even and unlabored. No increased work of breathing. Talking in full sentences Skin: Warm, dry with normal turgor. Normal color. MS/ Extremity: Pulses equal, no cyanosis. Neurovascular intact. Full, normal range of motion. Neuro: Awake and alert, GCS 15, oriented to person, place, time, and situation. Moves all extremities. Normal gait. Psych: Awake, alert, with orientation to person, place and time. Behavior, mood, and affect are within normal limits. 16:47 Abdomen/GI: Inspection: abdomen appears normal, Bowel sounds: normal, in all quadrants, Palpation: soft, in all quadrants, mild abdominal tenderness, in all quadrants. Vital Signs: 12:43 BP 122 / 79; Pulse 96; Resp 22; Temp 98.2; Pulse Ox 95% on 3 lpm NC; Weight 92.99 kg; kr3 Height 5 ft. 11 in. (180.34 cm); 15:26 BP 142 / 77; Pulse 94; Resp 22; Pulse Ox 97% on 2.5 lpm NC; kc6 18:47 BP 121 / 74; Pulse 102; Resp 21; Pulse Ox 93% on 2.5 lpm NC; ll1 12:43 Body Mass Index 28.59 (92.99 kg, 180.34 cm) kr3 MDM: 12:48 Patient medically screened. kb 16:48 Data reviewed: vital signs, nurses notes. Data interpreted: Pulse oximetry: on room air kb is 97 %. Interpretation: normal. Counseling: I had a detailed discussion with the patient and/or guardian regarding: the historical points, exam findings, and any diagnostic results supporting the discharge/admit diagnosis, lab results, radiology results, the need for further work-up and treatment in the hospital. Physician consultation: Jose Alfredo Yates was contacted at 16:48, regarding admission, patient's condition, and will see patient in ED. 06/17 12:56 Order name: CBC with Diff; Complete Time: 14:28 kb 06/17 12:56 Order name: Basic Metabolic Panel; Complete Time: 16:03 kb 06/17 12:56 Order name: Blood Culture Adult (2) kb 06/17 12:56 Order name: Lactate w/ 2H reflex if indic.; Complete Time: 14:53 kb 06/17 13:27 Order name: COVID-19/FLU A+B; Complete Time: 14:13 kc 06/18 05:21 Order name: CBC with Automated Diff EDMS 06/17 15:36 Order name: Chest Single View XRAY; Complete Time: 16:37 kb 06/17 18:42 Order name: CT Abd/Pelvis - IV Contrast Only; Complete Time: 19:32 la1 06/18 05:36 Order name: Comprehensive Metabolic Panel EDMS 06/17 12:56 Order name: IV Start; Complete Time: 12:58 kb 06/17 14:22 Order name: Labs - recollect needed: green top only; Complete Time: 15:29 ss Administered Medications: 13:25 Drug: DuoNeb (albuterol 2.5 mg, ipratropium 0.5 mg) (3:1) (2.5 mg - 0.5 mg) 3 ml Route: kc6 Nebulizer; 15:28 Follow up: Response: No adverse reaction [facility] 13:25 Drug: Magnesium Sulfate 1 grams Route: IVPB; Infused Over: 1 hrs; Site: left hand; kc6 18:58 Follow up: Response: No adverse reaction; IV Status: Completed infusion; IV Intake: ll1 100ml 13:25 Drug: SOLU-Medrol (methylPrednisoLONE) 125 mg Route: IVP; Site: left hand; kc6 15:28 Follow up: Response: No adverse reaction 6 13:25 Drug: Zofran (Ondansetron) 4 mg Route: IVP; Site: left hand; kc6 15:29 Follow up: Response: No adverse reaction [facility] 13:25 Drug: morphine 4 mg Route: IVP; Infused Over: 4 mins; Site: left hand; kc6 15:29 Follow up: Response: No adverse reaction; Pain is decreased; RASS: Alert and Calm (0) kc6 14:30 Drug: Tylenol 1000 mg Route: PO; kc6 15:51 Follow up: Response: No adverse reaction ll1 16:36 Drug: morphine 4 mg Route: IVP; Infused Over: 4 mins; Site: left hand; ll1 18:45 Follow up: Response: No adverse reaction ll1 16:59 Drug: NS 0.9% 1000 ml Route: IV; Rate: 75 ml/hr; Site: left hand; kc6 16:59 Drug: Albuterol 2.5 mg Route: Inhalation; kc6 18:45 Follow up: Response: No adverse reaction ll1 Disposition Summary: 06/17/22 16:49 Hospitalization Ordered Hospitalization Status: Observation kb Provider: Jose Alfredo Yates Condition: Stable kb Problem: new kb Symptoms: are unchanged kb Bed/Room Type: Standard kb Location: Telemetry/MedSurg (observation)(06/18/22 12:34) dw Room Assignment: 214(06/18/22 12:34) dw Diagnosis - COPD/ Chronic obstructive pulmonary disease with (acute) exacerbation kb - Nausea with vomiting, unspecified kb - Diarrhea, unspecified kb Forms: - Medication Reconciliation Form kb - SBAR form kb Addendum: 06/20/2022 13:32 Co-signature as Attending Physician, Sohail Campbell MD I agree with the assessment and c farooq plan of care. Signatures: Dispatcher [employer] EDMS Elizabeth Leong, INSULATION AND FLOORING ASSEMBLER-C INSULATION AND FLOORING ASSEMBLER-Ckb Suasna Begum RN RN Sohail Luna MD MD cha Smirch, Shelby, RN RN ss Elizabeth Hendrickson RN RN cg Lewis, Lynsay, RN RN ll1 Marimar Cat RN RN kr3 Edwige Myers RN RN kc6 Corrections: (The following items were deleted from the chart) 11 16:49 16:46 Pt reports shortness of breath, headache, bodyaches, n/v/d for 2 days. denies kb fever. . kb 21:42 16:49 Telemetry/MedSurg (observation) kb cg 21:42 16:49 kb cg 06/18 12:34 06/17 21:42 [facility] ER HOLD cg dw 06/18 12:34 06/17 21:42 ERHOLD- cg dw
--- NOTE | 2022-06-17 16:50 | ER ---
Nurse's Notes [facility] Name: Joseph Quach Age: 62 yrs Sex: Male : 1960 Arrival Date: 06/17/2022 Time: 12:13 Bed 26 Private MD: Diagnosis: COPD/ Chronic obstructive pulmonary disease with (acute) exacerbation;Nausea with vomiting, unspecified;Diarrhea, unspecified Presentation: 06/17 12:43 Chief complaint: Patient states: short of breath, N/V x 2 days, body aches. Coronavirus kr3 screen: Vaccine status: Patient reports being unvaccinated. Client denies travel out of the [place] in the last 14 days. Ebola Screen: Patient denies travel to an Ebola-affected area in the 21 days before illness onset. Initial Sepsis Screen: Does the patient meet any 2 criteria? No. Patient's initial sepsis screen is negative. Does the patient have a suspected source of infection? No. Patient's initial sepsis screen is negative. Risk Assessment: Do you want to hurt yourself or someone else? Patient reports no desire to harm self or others. Onset of symptoms was June 15, 2022. 12:43 Method Of Arrival: Wheelchair kr3 12:43 Acuity: AISLINN 3 kr3 Triage Assessment: 12:48 General: Appears distressed, uncomfortable, Behavior is cooperative, appropriate for kr3 age, fussy. Pain: Complains of pain in chest and abdomen. 14:10 Respiratory: Reports shortness of breath Onset: The symptoms/episode began/occurred ll1 yesterday, the patient has mild shortness of breath. Historical: - Allergies: 12:46 Fish Containing Products; kr3 - PMHx: 12:46 Myocardial infarction; Hypertensive disorder; High Cholesterol; COPD; cirrhosis of kr3 liver; angina pectoris; - PSHx: 12:46 None; kr3 - Immunization history:: Adult Immunizations up to date. - Social history:: Smoking status: Reported history of juuling and/or vaping. Screenin:51 Abuse screen: Denies threats or abuse. Nutritional screening: No deficits noted. ll1 Tuberculosis screening: No symptoms or risk factors identified. Fall Risk IV access (20 points). Gait- Weak (10 pts.). Total Paris Fall Scale indicates Low Risk Score (25-44 pts). Fall prevention measures have been instituted. Side Rails Up X 2 Placed close to Nursing Station Frequent Obs/Assesments occuring Family Present and informed to notify staff if they need to leave bedside As available Patient and Family Educated on Fall Prevention Program and strategies. Assessment: 13:26 Reassessment: No changes from previously documented assessment. Patient and/or family kc6 updated on plan of care and expected duration. Pain level reassessed. 14:09 Reassessment: No changes from previously documented assessment. Patient and/or family ll1 updated on plan of care and expected duration. Pain level reassessed. 14:09 Cardiovascular: Reports chest pain, shortness of breath, Rhythm is regular. ll1 Respiratory: Airway is patent Trachea midline Respiratory effort is labored, Respiratory pattern is tachypnea Breath sounds are coarse bilaterally. 15:26 Reassessment: No changes from previously documented assessment. Patient and/or family kc6 updated on plan of care and expected duration. Pain level reassessed. 16:30 Reassessment: No changes from previously documented assessment. Patient and/or family ll1 updated on plan of care and expected duration. Pain level reassessed. 17:30 Reassessment: No changes from previously documented assessment. Patient and/or family ll1 updated on plan of care and expected duration. Pain level reassessed. 18:30 Reassessment: No changes from previously documented assessment. Patient and/or family ll1 updated on plan of care and expected duration. Pain level reassessed. Vital Signs: 12:43 BP 122 / 79; Pulse 96; Resp 22; Temp 98.2; Pulse Ox 95% on 3 lpm NC; Weight 92.99 kg; kr3 Height 5 ft. 11 in. (180.34 cm); 15:26 BP 142 / 77; Pulse 94; Resp 22; Pulse Ox 97% on 2.5 lpm NC; kc6 18:47 BP 121 / 74; Pulse 102; Resp 21; Pulse Ox 93% on 2.5 lpm NC; ll1 12:43 Body Mass Index 28.59 (92.99 kg, 180.34 cm) kr3 ED Course: 12:13 Patient arrived in ED. mr 12:46 Triage completed. kr3 12:47 Elizabeth Leong FNP-C [facility] kb 12:48 Sohail Campbell MD is Attending Physician. kb 12:48 Arm band placed on right wrist. kr3 12:51 Romeo Ashton, JEZ is Primary Nurse. ll1 12:51 Patient placed in an exam room, on a stretcher. ll1 12:51 Patient has correct armband on for positive identification. Bed in low position. Call ll1 light in reach. Side rails up X2. Client placed on continuous cardiac and pulse oximetry monitoring. NIBP monitoring applied. color television console monitor on. 13:08 Inserted saline lock: 22 gauge in left hand, using aseptic technique. kc6 13:09 Missed attempt(s): 22 gauge in right hand. Bleeding controlled, band aid applied, kc6 catheter tip intact. 13:59 Inserted saline lock: 20 gauge in right antecubital area, using aseptic technique. jh5 16:23 Chest Single View XRAY In Process Unspecified. EDMS 16:49 Jose Alfredo Yates is Hospitalizing Provider. kb 18:57 No provider procedures requiring assistance completed. Patient admitted, IV remains in ll1 place. 19:08 Primary Nurse role handed off by Romeo Ashton RN 2 19:19 CT Abd/Pelvis - IV Contrast Only In Process Unspecified. EDMS 22:54 Richard Felder, JEZ is Primary Nurse. ll3 06/18 08:37 Primary Nurse role handed off by Richard Felder RN eb Administered Medications: 06/17 13:25 Drug: DuoNeb (albuterol 2.5 mg, ipratropium 0.5 mg) (3:1) (2.5 mg - 0.5 mg) 3 ml Route: kc6 Nebulizer; 15:28 Follow up: Response: No adverse reaction kc6 13:25 Drug: Magnesium Sulfate 1 grams Route: IVPB; Infused Over: 1 hrs; Site: left hand; kc6 18:58 Follow up: Response: No adverse reaction; IV Status: Completed infusion; IV Intake: ll1 100ml 13:25 Drug: SOLU-Medrol (methylPrednisoLONE) 125 mg Route: IVP; Site: left hand; kc6 15:28 Follow up: Response: No adverse reaction kc6 13:25 Drug: Zofran (Ondansetron) 4 mg Route: IVP; Site: left hand; kc6 15:29 Follow up: Response: No adverse reaction kc6 13:25 Drug: morphine 4 mg Route: IVP; Infused Over: 4 mins; Site: left hand; kc6 15:29 Follow up: Response: No adverse reaction; Pain is decreased; RASS: Alert and Calm (0) kc6 14:30 Drug: Tylenol 1000 mg Route: PO; kc6 15:51 Follow up: Response: No adverse reaction ll1 16:36 Drug: morphine 4 mg Route: IVP; Infused Over: 4 mins; Site: left hand; ll1 18:45 Follow up: Response: No adverse reaction ll1 16:59 Drug: NS 0.9% 1000 ml Route: IV; Rate: 75 ml/hr; Site: left hand; kc6 16:59 Drug: Albuterol 2.5 mg Route: Inhalation; kc6 18:45 Follow up: Response: No adverse reaction ll1 Medication: 12:51 VIS not applicable for this client. ll1 Intake: 18:58 IV: 100ml; Total: 100ml. ll1 Outcome: 16:49 Decision to Hospitalize by Provider. kb 18:57 Condition: stable ll1 18:57 Instructed on the need for admit. 06/18 13:59 Patient left the ED. Signatures: Dispatcher [employer] EDMS Elizabeth Leong, SUPERVISOR IN CHARGE-C SUPERVISOR IN CHARGE-Ckb Messi Linsey Kala Johnson, RN RN Myesha Jacobsen 2 Anuja Ambrocio Lynsay RN RN ll1 Shefali Gilliam RN RN jh5 Richard Felder RN RN ll3 Marimar Cat RN RN arsen3 Edwige Myers RN RN kc6
[2022-06-17] MEDS ORDERED: NA CHLORIDE 0.9% 1,000 ML ONE (16:53)
--- NOTE | 2022-06-17 19:32 | RAD REPORT ---
EXAM DESCRIPTION: CTAbdomen Pelvis W Contrast - 06/17/2022 7:18 pm CLINICAL HISTORY: Nausea/vomiting COMPARISON: Angio Aorta For Dissection dated 12/30/2021; Mri Abdomen W/Wo Cont dated 02/16/2022 TECHNIQUE: CT of the abdomen and pelvis was performed with IV contrast. All CT scans are performed using dose optimization technique as appropriate and may include automated exposure control or mA/KV adjustment according to patient size. FINDINGS: Lower chest: Dependent atelectasis and/or aspiration. Lower paraesophageal varices Liver: Multiple liver masses are again identified. The largest measures 4.4 cm and is increased in si ze. Biliary: No biliary ductal dilatation. Stomach: No significant focal abnormality. Duodenum: No significant focal abnormality. Pancreas: No significant abnormality. Spleen: Splenomegaly. Low-density lesion in the spleen, likely benign. Adrenal: No suspicious lesions. Kidney/ureter: No hydronephrosis. Nonobstructing stone in left kidney. Too small to characterize and/ or benign appearing renal lesions are noted. Retroperitoneum: No retroperitoneal adenopathy. Vascular: No aneurysm. Thrombus present within the left main portal vein. Bowel: No significant focal abnormality. Normal appendix Peritoneum: No ascites or free air. Bladder: Grossly unremarkable. Reproductive: No adnexal masses. Bones: No acute fracture. Degenerative changes at L4-5 Other: n/a IMPRESSION: No acute intra-abdominal or pelvic finding. Suspected multifocal hepatocellular carcinom a. New nonocclusive thrombus in the left main portal vein.
[2022-06-17] MEDS ORDERED: BENZONATATE 100 MG CAP PO PRN (19:45)
[2022-06-17] MEDS ORDERED: ALBUTEROL 2.5 MG/3 ML NEB SOL NEB PRN (19:45)
[2022-06-17] MEDS ORDERED: ONDANSETRON 4 MG/2 ML VIAL IV PRN (19:45)
[2022-06-17] MEDS ORDERED: ACETAMINOPHEN 500 MG TAB PO PRN (19:45)
--- NOTE | 2022-06-17 20:24 | P.HP ---
Certification for Inpatient Patient admitted to: Observation With expected LOS: <2 Midnights Patient will require the following post-hospital care: None Practitioner: I am a practitioner with admitting privileges, knowledge of patient current condition, hospital course, and medical plan of care. Services: Services provided to patient in accordance with Admission requirements found in Title 42 Section 412.3 of the Code of Federal Regulations Patient History Date of Service: 06/17/22 Reason for admission: COPD exacerbation History of Present Illness: 62-year-old male with history of COPD on home O2, chronic diastolic congestive heart failure, recently diagnosed liver cancer presents to the emergency department for shortness of breath. He reports 2 to 3 days of worsening dyspnea, increased oxygen requirement. Patient reports that at home he typically does not have to use his oxygen all the time, the past few days he has had to use his oxygen [id number] as well as increasing from 2 L to 3 L per nasal cannula at home to maintain saturations greater than 90. On 2 L per nasal cannula patient saturations were in the 80s emergency department. Additional labs were significant for white blood cell count 3.2 platelets 106. Patient also is complaining of abdominal pain, nausea, vomiting CT abdomen pelvis IV contrast was performed which did reveal no acute intra-abdominal or pelvic findings. Suspected multifocal hepatocellular carcinoma. New nonocclusive thrombus in the left main portal vein. In the emergency department patient was treated with nebulizer treatments, IV steroids, he is still feeling short of breath having some expiratory wheezing. ED provider wishes to admit under observation for COPD exacerbation. Allergies Fish Containing Products Allergy (Verified 10/31/21 09:57) Anaphylaxis Home Medications: Gabapentin 300 mg PO BID #60 08/25/21 Mometasone/Formoterol [Dulera 200 Mcg/5 Mcg Inhaler] 2 puff IH BID #1 inhaler 08/25/21 Albuterol Neb [Proventil 0.083% Neb Soln] 2.5 mg NEB [id number] PRN #60 amp 11/03/21 Metoprolol Succinate 25 mg PO DAILY 11/19/21 Aspirin [Aspirin EC 81 MG] 81 mg PO DAILY #30 tablet. 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 - Family History Sister -: Cancer, Other (see notes) Notes: lupus Brother -: Kidney disease, Other (see notes) Notes: lupus Mother -: Other (see notes) Notes: copd - Social History Smoking Status: Current every day smoker (Vape) Alcohol use: No CD- Drugs: No Caffeine use: No Place of Residence: Home Review of Systems 10-point ROS is otherwise unremarkable Respiratory: Shortness of Breath, SOB with Excertion, Wheezing Gastrointestinal: Nausea, Vomiting, Abdominal Pain Physical Examination - Physical Exam General: Alert, In no apparent distress, Oriented x3 HEENT: Atraumatic, PERRLA, Mucous membr. moist/pink, EOMI, Sclerae nonicteric Neck: Supple, 2+ carotid pulse no bruit, No LAD, Without JVD or thyroid abnormal ity Respiratory: Diminished, Expiratory wheezes Cardiovascular: Regular rate/rhythm, Normal S1 S2 Capillary refill: <2 Seconds Gastrointestinal: Normal bowel sounds, No tenderness Musculoskeletal: No tenderness Integumentary: No rashes Neurological: Normal speech, Normal strength at 5/5 x4 extr, Normal tone, Normal affect - Studies Laboratory Data (last 24 hrs) 06/17/22 15:15: Sodium 136, Potassium 4.4, BUN 14, Creatinine 0.55, Glucose 110 H 06/17/22 13:55: WBC 3.20 L, Hgb 15.7, Hct 47.3, Plt Count 106 L Assessment and Plan - Plan Assessment: Acute on chronic hypoxic respiratory failure secondary to COPD with exacerbation Chronic diastolic congestive heart failure Liver masses, nonocclusive left portal vein thrombosis suspected liver cancer History of CAD Hypertension Plan: Acute on chronic hypoxic respiratory failure secondary to COPD with exacerba tion: Continue steroids, ICS, as needed nebulizer treatments, pulmonology consult in place. Daily saturations on 2 L per nasal cannula. Patient has home oxygen does not take steroids chronically per patient. Chronic diastolic congestive heart failure: Continue home medications Liver masses, new nonocclusive left portal vein thrombosis suspected liver cancer: Patient pursuing work-up as an outpatient, reports he has seen local oncology who referred him to another specialist he is awaiting them to clear his insurance he can have additional testing including MRI of the liver. Discussed results with patient. History of CAD: Continue home medications Hypertension: Continue home medications DVT PPX:Lovenox Code status: Full Discharge Plan: Home Plan to discharge in: 24 Hours - Advance Directives Does patient have a Living Will: No Does patient have a Durable POA for Healthcare: No - Code Status/Comfort Care Code Status Assessed: Yes (Full code) Critical Care: No Time Spent Managing Pts Care (In Minutes): 70
[2022-06-17] MEDS ORDERED: DULERA 200/5 (MOMETASONE/FORMOTEROL) INHALER IH ONE (22:11)
[2022-06-17] MEDS: DULERA 200/5 (MOMETASONE/FORMOTEROL) INHALER IH SCH (22:15)
[2022-06-17] MEDS ORDERED: HYDROCODONE/APAP 5/325 MG TAB ONE (22:26)
[2022-06-17] MEDS: HYDROCODONE/APAP 5/325 MG TAB PO PRN (22:27)
[2022-06-18] MEDS ORDERED: ONDANSETRON 4 MG/2 ML VIAL ONE (03:37)
[2022-06-18 05:16] LABS: Absolute Lymphocytes (CBC) 0.3 K/uL (0.7-4.9); Hematocrit 38.4 % (39.6-49.0); Lymphocytes % 7.9 % (15.3-44.8); MCV 97.4 fL (80-100); MPV 7.7 fL (7.6-11.3); RBC Red Blood Cell Count 3.94 M/uL (4.33-5.43)
[2022-06-18 05:32] LABS: Albumin 2.7 g/dL (3.4-5.0); Bilirubin Total 0.8 mg/dL (0.2-1.0); Potassium 3.9 mmol/L (3.5-5.1); Protein, Total 6.4 g/dL (6.4-8.2)
[2022-06-18] MEDS ORDERED: HYDROCODONE/APAP 5/325 MG TAB PO PRN (07:20)
[2022-06-18] MEDS ORDERED: METOPROLOL XL 50 MG TAB PO ONE (08:56)
[2022-06-18] MEDS ORDERED: VITAMIN D 1000 UNIT TAB ONE (08:57)
[2022-06-18] MEDS ORDERED: ENOXAPARIN 40 MG/0.4 ML SQ ONE (08:57)
[2022-06-18] MEDS ORDERED: GABAPENTIN 300 MG CAP ONE (08:57)
[2022-06-18] MEDS ORDERED: ASPIRIN EC 81 MG TAB PO ONE (08:57)
[2022-06-18] MEDS ORDERED: FUROSEMIDE 40 MG TABLET ONE (08:57)
[2022-06-18] MEDS ORDERED: predniSONE 20 MG TAB ONE (08:58)
[2022-06-18] MEDS ORDERED: CHOLECALCIFEROL 25 MCG PO SCH (09:00)
[2022-06-18] MEDS: FUROSEMIDE 40 MG TABLET PO SCH ×2 (09:00→21:33)
[2022-06-18] MEDS: DULERA 200/5 (MOMETASONE/FORMOTEROL) INHALER IH SCH ×2 (09:00→21:34)
[2022-06-18] MEDS: predniSONE 20 MG TAB PO SCH (09:00)
[2022-06-18] MEDS: ENOXAPARIN 40 MG/0.4 ML SQ SCH (09:00)
[2022-06-18] MEDS: GABAPENTIN 300 MG CAP PO SCH ×2 (09:00→21:00)
[2022-06-18] MEDS: ASPIRIN EC 81 MG TAB PO SCH (09:00)
[2022-06-18] MEDS: METOPROLOL XL 25 MG TAB PO SCH (09:00)
[2022-06-18] MEDS: VITAMIN D 1000 UNIT TAB PO SCH (09:00)
[2022-06-18] MEDS ORDERED: DULERA 200/5 (MOMETASONE/FORMOTEROL) INHALER IH SCH (09:00)
[2022-06-18] MEDS ORDERED: NA CHLORIDE 0.9% 1,000 ML ONE (09:01)
[2022-06-18] MEDS ORDERED: POTASSIUM CL SA 10 MEQ TAB PO ONE ×2 (13:03→13:23)
--- NOTE | 2022-06-18 14:06 | P.PN ---
Subjective Date of Service: 06/18/22 Chief Complaint: COPD exacerbation Patient states his shortness of breath is better. He denies any chest pain. He reports nonproductive cough. His oxygen saturation is in the 90s with 3 L of oxygen by nasal cannula. Physical Examination - Vital Signs Temperature: 98.1 F Blood Pressure: 122/77 Pulse: 77 Respirations: 14 Pulse Ox (%): 97 - Studies Laboratory Data (last 24 hrs) 06/17/22 15:15: Sodium 136, Potassium 4.4, BUN 14, Creatinine 0.55, Glucose 110 H 06/17/22 13:55: WBC 3.20 L, Hgb 15.7, Hct 47.3, Plt Count 106 L Assessment And Plan - Current Problems (Diagnosis) (1) Acute and chronic respiratory failure with hypoxia Current Visit: Yes Status: Acute (2) Hepatocellular carcinoma Current Visit: Yes Status: Acute (3) COPD exacerbation Current Visit: No Status: Acute (4) Liver cirrhosis Current Visit: No Status: Acute (5) Portal vein thrombosis secondary to HCC invasion Current Visit: Yes Status: Acute (6) Acquired thrombocytopenia Current Visit: Yes Status: Acute - Plan Physical Exam General: Alert, In no apparent distress. Neck: Supple, no JVD elevation. Respiratory: Diminished, Expiratory wheezes Cardiovascular: Regular rate/rhythm, Normal S1 S2 Gastrointestinal: Normal bowel sounds, No tenderness Neurological: No focal motor deficit. Plan: Bronchodilators-nebs, dulera, oral steroid. Resume home dose oral Lasix. Wean oxygen to baseline as tolerated. Check PT/INR. CT abdomen and pelvis demonstrated portal vein thrombosis, acuity is unknown. It also report paraesophageal varices Patient will need anticoagulation for hepatic vein thrombosis but he will need EGD to confirm esophageal varices before anticoagulation. Outpatient follow-up for hepatocellular carcinoma.
[2022-06-18 14:13] VITALS: BMI 28.8
[2022-06-18] MEDS: HYDROCODONE/APAP 5/325 MG TAB PO PRN (17:58)
[2022-06-18] MEDS: IPRATROPIUM BROM 0.5MG/2.5ML NEB PRN (21:05)
[2022-06-18] MEDS: ALBUTEROL 2.5 MG/3 ML NEB SOL NEB PRN (21:05)
[2022-06-19 04:03] LABS: Absolute Lymphocytes (CBC) 0.7 K/uL (0.7-4.9); Hematocrit 37.4 % (39.6-49.0); MPV 7.7 fL (7.6-11.3); RBC Red Blood Cell Count 3.86 M/uL (4.33-5.43)
[2022-06-19 04:32] LABS: Albumin 2.7 g/dL (3.4-5.0); Bilirubin Total 0.7 mg/dL (0.2-1.0); Potassium 3.8 mmol/L (3.5-5.1); Protein, Total 6.3 g/dL (6.4-8.2)
[2022-06-19] MEDS: DULERA 200/5 (MOMETASONE/FORMOTEROL) INHALER IH SCH ×2 (08:40→20:51)
[2022-06-19] MEDS: predniSONE 20 MG TAB PO SCH (08:41)
[2022-06-19] MEDS: ENOXAPARIN 40 MG/0.4 ML SQ SCH (08:41)
[2022-06-19] MEDS: METOPROLOL XL 25 MG TAB PO SCH (08:41)
[2022-06-19] MEDS: ASPIRIN EC 81 MG TAB PO SCH (08:42)
[2022-06-19] MEDS: VITAMIN D 1000 UNIT TAB PO SCH (08:42)
[2022-06-19] MEDS: GABAPENTIN 300 MG CAP PO SCH ×3 (08:42→21:00)
[2022-06-19] MEDS: FUROSEMIDE 40 MG TABLET PO SCH ×2 (08:43→20:48)
[2022-06-19] MEDS: IPRATROPIUM BROM 0.5MG/2.5ML NEB PRN ×2 (08:57→16:01)
[2022-06-19] MEDS: ALBUTEROL 2.5 MG/3 ML NEB SOL NEB PRN ×2 (08:57→16:01)
[2022-06-19] MEDS ORDERED: POTASSIUM CL SA 10 MEQ TAB PO ONE (09:00)
[2022-06-19] MEDS: HYDROCODONE/APAP 5/325 MG TAB PO PRN ×2 (11:09→23:27)
--- NOTE | 2022-06-19 11:32 | P.PN ---
Subjective Date of Service: 06/19/22 Chief Complaint: COPD exacerbation Patient noted to be coughing and wheezing this morning He denies any chest pain. No recorded fever. 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 Neck: Supple, no JVD elevation. Respiratory: Diminished, Expiratory wheezes Cardiovascular: Regular rate/rhythm, Normal S1 S2 Gastrointestinal: Normal bowel sounds, No tenderness Neurological: No focal motor deficit. Plan: Continue bronchodilators-nebs, dulera, oral steroid. Continue oral Lasix. Start oral Levaquin for possible infective bronchitis. Wean oxygen to baseline as tolerated. Consult pulmonary. CT abdomen and pelvis demonstrated portal vein thrombosis, acuity is unknown. It also report paraesophageal varices Patient will need anticoagulation for hepatic vein thrombosis but he will need EGD to confirm esophageal varices before anticoagulation. Outpatient follow-up for hepatocellular carcinoma.
[2022-06-19] MEDS: levoFLOXacin 750 MG TAB PO SCH (12:00)
[2022-06-19 14:09] LABS: Protime INR 1.24
[2022-06-19] MEDS: METHYLPREDNISOLONE 40 MG INJ IV SCH (16:17)
[2022-06-19 22:08] VITALS: O2SAT 96
[2022-06-20] MEDS: METHYLPREDNISOLONE 40 MG INJ IV SCH ×3 (00:42→16:13)
[2022-06-20 04:26] LABS: Absolute Lymphocytes (CBC) 0.2 K/uL (0.7-4.9); Hematocrit 38.2 % (39.6-49.0); Lymphocytes % 8.6 % (15.3-44.8); MCV 97.6 fL (80-100); MPV 7.5 fL (7.6-11.3); RBC Red Blood Cell Count 3.92 M/uL (4.33-5.43)
[2022-06-20 04:28] LABS: Potassium 4.2 mmol/L (3.5-5.1)
[2022-06-20] MEDS: FUROSEMIDE 40 MG TABLET PO SCH (08:31)
[2022-06-20] MEDS: VITAMIN D 1000 UNIT TAB PO SCH (08:31)
[2022-06-20] MEDS: DULERA 200/5 (MOMETASONE/FORMOTEROL) INHALER IH SCH (08:32)
[2022-06-20] MEDS: ENOXAPARIN 40 MG/0.4 ML SQ SCH (08:32)
[2022-06-20] MEDS: levoFLOXacin 750 MG TAB PO SCH (08:32)
[2022-06-20] MEDS: ASPIRIN EC 81 MG TAB PO SCH (08:32)
[2022-06-20] MEDS: GABAPENTIN 300 MG CAP PO SCH (08:33)
[2022-06-20] MEDS: METOPROLOL XL 25 MG TAB PO SCH (08:33)
[2022-06-20 09:13] VITALS: TEMP 98
[2022-06-20 12:18] VITALS: BP 140/83
--- NOTE | 2022-06-20 16:01 | P.PN ---
Subjective Date of Service: 06/20/22 Chief Complaint: COPD exacerbation Patient states he feels better today compared to yesterday. He does report poor sleep. He has not related insomnia to shortness of breath or wheezing or cough. 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 Neck: Supple, no JVD elevation. Respiratory: Improved breath sounds bilaterally, mild scattered wheezes. Cardiovascular: Regular rate/rhythm, Normal S1 S2 Gastrointestinal: Normal bowel sounds, No tenderness Neurological: No focal motor deficit. Plan: Continue bronchodilators-nebs, dulera, oral steroid. Continue oral Lasix. Oral Levaquin. Currently at baseline oxygen requirement. CT abdomen and pelvis demonstrated portal vein thrombosis, acuity is unknown. It also report paraesophageal varices Patient will need anticoagulation for hepatic vein thrombosis but he will need EGD to confirm esophageal varices before anticoagulation. Outpatient follow-up for hepatocellular carcinoma.
--- NOTE | 2022-06-20 17:51 | P.DS ---
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 He reports 2 to 3 days of worsening dyspnea, increased oxygen requirement. Patient reports that at home he typically does not have to use his oxygen all the time, the past few days he has had to use his oxygen [id number] as well as increasing from 2 L to 3 L per nasal cannula at home to maintain saturations greater than 90. On 2 L per nasal cannula patient saturations were in the 80s in the emergency department. Patient also is complaining of abdominal pain, nausea, vomiting. CT abdomen pelvis IV contrast was performed which did reveal no acute intra-abdominal or pelvic findings. Suspected multifocal hepatocellular carcinoma. New nonocclusive thrombus in the left main portal vein. In the emergency department patient was treated with nebulizer treatments, IV steroids, but was still feeling short of breath. Patient admitted for further management. Hospital Course: Patient admitted to the medical floor and treated with nebs dulera, oral steroid. He is on oral Lasix which was continued-same home dose. He was also treated with oral Levaquin for infective bronchitis. His respiratory condition improved with treatment and currently at baseline. CT abdomen and pelvis demonstrated portal vein thrombosis, acuity is unknown. It also report paraesophageal varices Patient will need anticoagulation for hepatic vein thrombosis but he will need EGD to confirm esophageal varices before anticoagulation. Patient has been informed about the hepatic vein thrombosis. He plans to follow-up with Dr. Solares for referral to a specialist for hepatocellular carcinoma. Vital Signs/Physical Exam: Temp Pulse Resp BP Pulse Ox 98.0 F 107 H 18 140/83 93 06/20/22 16:02 06/20/22 16:02 06/20/22 16:02 06/20/22 16:02 06/20/22 16:02 General: Alert, In no apparent distress, Oriented x3, Obese HEENT: Mucous membr. moist/pink Neck: JVD not distended Respiratory: Clear to auscultation bilaterally, Normal air movement Cardiovascular: No edema, Regular rate/rhythm, Normal S1 S2 Gastrointestinal: Soft and benign, Non-distended Musculoskeletal: No swelling Integumentary: No cyanosis Neurological: Normal strength at 5/5 x4 extr Laboratory Data at Discharge: WBC 2.80 K/uL (4.3-10.9) L 06/20/22 03:59 Hgb 12.8 g/dL (13.6-17.9) L 06/20/22 03:59 Hct 38.2 % (39.6-49.0) L 06/20/22 03:59 Plt Count 84 K/uL (152-406) L 06/20/22 03:59 PT 13.6 SECONDS (9.5-12.5) H 06/19/22 13:36 INR 1.24 06/19/22 13:36 Sodium 138 mmol/L (136-145) 06/20/22 03:59 Potassium 4.2 mmol/L (3.5-5.1) 06/20/22 03:59 BUN 18 mg/dL (7-18) 06/20/22 03:59 Creatinine 0.75 mg/dL (0.55-1.3) 06/20/22 03:59 Glucose 184 mg/dL (74-106) H 06/20/22 03:59 Total Bilirubin 0.7 mg/dL (0.2-1.0) 06/19/22 03:50 AST 32 U/L (15-37) 06/19/22 03:50 ALT 30 U/L (12-78) 06/19/22 03:50 Alkaline Phosphatase 59 U/L (45-117) 06/19/22 03:50 Home Medications: Gabapentin 300 mg PO BID #60 08/25/21 Mometasone/Formoterol [Dulera 200 Mcg/5 Mcg Inhaler] 2 puff IH BID #1 inhaler 08/25/21 Metoprolol Succinate 25 mg PO DAILY 11/19/21 Aspirin [Aspirin EC 81 MG] 81 mg PO DAILY #30 tablet. 11/22/21 Furosemide [Lasix*] 40 mg PO BID #60 tab 11/22/21 Cholecalciferol (Vitamin D3) [Vitamin D3] 50 mcg PO DAILY 11/26/21 Ipratropium/Albuterol Sulfate [Iprat-Albut 0.5-3(2.5) mg/3 ml] 3 ml IH Q6H 11/26/21 Hydrocodone 5/APAP 325 [[place] 5/325*] 1 tab PO Q6H PRN #15 tab 11/27/21 predniSONE [Deltasone*] 10 mg PO DAILY #30 tab 11/27/21 levoFLOXacin [Levaquin*] 750 mg PO DAILY #7 tab 06/20/22 predniSONE [Deltasone] 20 mg PO DAILY #7 tab 06/20/22 New Medications: levoFLOXacin [Levaquin*] 750 mg PO DAILY #7 tab predniSONE [Deltasone] 20 mg PO DAILY #7 tab Diet: AHA Activity: Ad ivan Followup: Glenis Cain MD [ACTIVE - CAN ADMIT] - 1-2 Weeks Time spent managing pt's care (in minutes): 33
== END 2022-06-20 18:13 | disposition home or self-care (01) | DRG 190 ==
LOC: ER 12:12 → ERHOLD 19:30 → 2ND 06-18 13:53
PROVIDERS: ADMIT Internal Medicine; ATTEND Internal Medicine
DX: J44.1 Chronic obstructive pulmonary disease with (acute) exacerbation (principal); I81 Portal vein thrombosis; J96.21 Acute and chronic respiratory failure with hypoxia; C22.0 Liver cell carcinoma; I50.32 Chronic diastolic (congestive) heart failure; I11.0 Hypertensive heart disease with heart failure; D69.6 Thrombocytopenia, unspecified; K74.60 Unspecified cirrhosis of liver; J40 Bronchitis, not specified as acute or chronic; I25.10 Atherosclerotic heart disease of native coronary artery without angina pectoris; I25.2 Old myocardial infarction; F17.290 Nicotine dependence, other tobacco product, uncomplicated; R19.7 Diarrhea, unspecified; Z99.81 Dependence on supplemental oxygen; Z79.82 Long term (current) use of aspirin; Z79.52 Long term (current) use of systemic steroids; Z91.013 Allergy to seafood; Z79.899 Other long term (current) drug therapy; Z20.822 Contact with and (suspected) exposure to COVID-19
CPT/HCPCS: 0240U; 36415; 71045; 74177; 80048; 80053; 83605; 85025; 85610; 87040; 94640; 96365; 96366; 96375; 99284; J1650; J2405; J2920; J2930; J3475; J3535; J7030; J7512; J7613; J7644; Q9967

== ENCOUNTER 2022-08-25 19:58 | Emergency (ER) | payer OTHER ==
--- OUTSIDE RECORDS SUMMARY | 2022-08-25 20:12 | XMS REPORT | Continuity of Care Document ---
:1960 Author Organization [facility] [place] [facility] t Address [address] [place] [address] Care Team Providers Name Role Phone [facility] Physician HETAL PAT Attending Clinician Unavailable CHRISTOPHER CLARK Attending Clinician Unavailable Hetal Carter Attending Clinician Doctor Unassigned, [place] Attending Clinician Unavailable Lab, Lcc Attending Clinician Unavailable Christopher Clark MD Attending Clinician CORAZON SERRANO Attending Clinician Unavailable LEX MEHTA Attending Clinician Unavailable Brigida Ulloa MD Attending Clinician Boyd Claros MD Attending Clinician Lex Mehta MD Attending Clinician Valente STEELE, Sarahi Attending Clinician Stuart STOYR, Nickie Attending Clinician Unavailable Sheba Bhagat Attending Clinician Nader Cross MD Attending Clinician Arnol Isaac MD Attending Clinician ARNOL ISAAC Attending Clinician Unavailable SARAHI VICTOR Admitting Clinician Unavailable Sarahi Victor MD Admitting Clinician Arnol Isaac MD Admitting Clinician ARNOL ISAAC Admitting Clinician Unavailable Payers Payer Name Policy Type Policy Number Effective Date Expiration Date Matthew del angel [facility] [id number] 2022 00:00:00 PLUS Problems Condition Condition Condition Status Onset Resolution Last Treating Co mments Source Name Details Category Date Date Treatment Clinician Date Thrombocyt Thrombocyt Disease Active 2021-08 U nivers openia openia 2-08 ity of 00:00: [place] [facility] Gastric Gastric Disease Active 2021-08 Univers varices varices 2-08 ity of 00:00: [place] [facility] Hepatocell Hepatocell Disease Active 2021-08 U nivers ular ular 0-20 ity of carcinoma carcinoma 00:00: Ray kay [facility] Branch Chronic Chronic Disease Active 2021-08 Univers hepatitis hepatitis 0-20 ity of C virus C virus 00:00: [place] infection infection 00 [facility] reynaldo with with Branch cirrhosis cirrhosis Volume Volume Disease Active Univers overload overload 5-18 ity of 00:00: [place] [facility] COPD with COPD with Disease Active Uni vers acute acute 4-07 [place] of exacerb[place] exacerb[place] Obesity Obesity Disease Active Univers (BMI (BMI 4-06 ity of 30-39.9) 30-39.9) 00:00: [place] [facility] COPD COPD Disease Active Univers exacerbati exacerbati 4-06 it y of on on 00:00: [place] [facility] Troponin I Troponin I Disease Active U nivers above above 4-06 it[place] of reference [place] range 00 [place] Cigarette Cigarette Disease Active Uni vers smoker smoker 4-06 ity of 00:00: [place] [facility] Chest pain Chest pain Disease Active U nivers 4-05 ity of 00:00: [place] [facility] Allergies, Adverse Reactions, Alerts Allergy Allergy Status Severity Reaction(s) Onset Inactive Treating Comm ents Source Name Type Date Date Clinician Seafood/ Propensi Active Rash 2018-08 Univer s Fish ty to 2-17 ity of adverse 00:00: [place] reaction 00 Medical s Branch SEAFOOD/ Food Active Rash 2018-08 Univers FISH 2-17 ity of 00:00: [place] 00 Medical [facility] Social History Social Habit Start Date Stop Date Quantity Comments Source Exposure to 2022-06-28 2022-07-08 Not sure [facility] SARS-CoV-2 00:00:00 09:39:00 [facility] (event) Branch Alcohol intake 2022-07-08 2022-07-08 Ex-drinker [facility] 00:00:00 00:00:00 (finding) [facility] Tobacco use and 2022-05-20 2022-05-20 User of smokeless Un iversity of exposure 00:00:00 00:00:00 tobacco [facility] Education 2021-11-04 2021-11-04 9 [facility] 00:00:00 00:00:00 [facility] History of 2017-05-29 Cigarette Smoker Universi ty of tobacco use 00:00:00 [facility] Sex [birth year] Universit y of 00:00:00 00:00:00 [facility] Smoking Status Start Date Stop Date Source Ex-smoker 2022-05-20 00:00:00 2022-05-20 00:00:00 Universi ty of [facility] Medications Ordered Filled Start Stop Current Ordering Indication Dosage Frequency Signature Comments Components Source Medication Medication Date Date Medication? Clinician (SIG) Name Name aspirin 81 2021-08 Yes 81mg Take 81 mg U nivers mg chewable 2-08 by mouth ity of tablet 09:48: daily. [address] spironolact 2021-08 Yes 100mg Take 100 U nivers one 100 mg 2-08 mg by ity of tablet 09:48: mouth in [place] [address] [facility]. Branch aspirin 81 2021-08 Yes 81mg Take 81 mg U nivers mg chewable 2-08 by mouth ity of tablet 09:48: daily. [address] spironolact 2021-08 Yes 100mg Take 100 U nivers one 100 mg 2-08 mg by ity of tablet 09:48: mouth in [place] [address] the Medical morning. Branch aspirin 81 2021-08 Yes 81mg Take 81 mg U nivers mg chewable 2-08 by mouth ity of tablet 09:48: daily. [address] Branch spironolact 2021-08 Yes 100mg Take 100 U nivers one 100 mg 2-08 mg by ity of tablet 09:48: mouth in [place] [address] the Medical morning. Branch aspirin 81 2021-08 Yes 81mg Take 81 mg U nivers mg chewable 2-08 by mouth ity of tablet 09:48: daily. [address] Branch spironolact 2021-08 Yes 100mg Take 100 U nivers one 100 mg 2-08 mg by ity of tablet 09:48: mouth in [place] [address] the Medical morning. Branch aspirin 81 2021-08 Yes 81mg Take 81 mg U nivers mg chewable 2-08 by mouth ity of tablet 09:48: daily. [address] Branch spironolact 2021-08 Yes 100mg Take 100 U nivers one 100 mg 2-08 mg by ity of tablet 09:48: mouth in [place] [address] the Medical morning. Branch aspirin 81 2021-08 Yes 81mg Take 81 mg U nivers mg chewable 2-08 by mouth ity of tablet 09:48: daily. [address] spironolact 2021-08 Yes 100mg Take 100 U nivers one 100 mg 2-08 mg by ity of tablet 09:48: mouth in [place] [address] the Medical morning. Branch aspirin 81 2021-08 Yes 81mg Take 81 mg U nivers mg chewable 2-08 by mouth ity of tablet 09:48: daily. [address] Branch spironolact 2021-08 Yes 100mg Take 100 U nivers one 100 mg 2-08 mg by ity of tablet 09:48: mouth in [place] [address] the Medical morning. Branch TAKE 1 2021-08 No TABLET BY 2-01 MOUTH ONCE 00:00: DAILY 00 aspirin 81 2021- Yes 81mg Take 81 mg U nivers mg chewable 0-20 by mouth ity of tablet 11:22: daily. [address] Branch spironolact 2021-08 Yes 100mg Take 100 U nivers one 100 mg 0-20 mg by ity of tablet 11:22: mouth in [place] [address] the Medical morning. Branch aspirin 81 2021-08 Yes 81mg Take 81 mg U nivers mg chewable 0-20 by mouth ity of tablet 11:22: daily. [address] Branch spironolact 2021-08 Yes 100mg Take 100 U nivers one 100 mg 0-20 mg by ity of tablet 11:22: mouth in [place] [address] the Medical morning. Branch aspirin 81 2021-08 Yes 81mg Take 81 mg U nivers mg chewable 0-20 by mouth ity of tablet 11:22: daily. [address] Branch spironolact 2021-08 Yes 100mg Take 100 U nivers one 100 mg 0-20 mg by ity of tablet 11:22: mouth in [place] [address] the Medical morning. Branch aspirin 81 2021-08 Yes 81mg Take 81 mg U nivers mg chewable 0-20 by mouth ity of tablet 11:22: daily. [address] spironolact 2021-08 Yes 100mg Take 100 U nivers one 100 mg 0-20 mg by ity of tablet 11:22: mouth in [place] [address] the Medical morning. Branch aspirin 81 2021-08 Yes 81mg Take 81 mg U nivers mg chewable 0-20 by mouth ity of tablet 11:22: daily. [address] spironolact 2021-08 Yes 100mg Take 100 U nivers one 100 mg 0-20 mg by ity of tablet 11:22: mouth in [place] [address] the Medical morning. Branch aspirin 81 2021-08 Yes 81mg Take 81 mg U nivers mg chewable 0-20 by mouth ity of tablet 11:22: daily. [address] Branch spironolact 2021-08 Yes 100mg Take 100 U nivers one 100 mg 0-20 mg by ity of tablet 11:22: mouth in [place] [address] the Medical morning. Branch aspirin 81 2021-08 Yes 81mg Take 81 mg U nivers mg chewable 0-20 by mouth ity of tablet 11:22: daily. [address] Branch spironolact 2021-08 Yes 100mg Take 100 U nivers one 100 mg 0-20 mg by ity of tablet 11:22: mouth in [place] [address] the Medical morning. Branch gabapentin 2021-08 Yes 300mg Take 300 [place] 300 mg 0-20 mg by ity of capsule 11:21: mouth 2 [place] [address] (two) Medical times Branch daily. gabapentin 2022-1 Yes 300mg Take 300 [place] 300 mg 0-20 mg by ity of capsule 11:21: mouth 2 (two) Medical times Branch daily. gabapentin 2022-1 Yes 300mg Take 300 [place] 300 mg 0-20 mg by ity of capsule 11:21: mouth 2 (two) Medical times Branch daily. gabapentin 2022-1 Yes 300mg Take 300 [place] 300 mg 0-20 mg by ity of capsule 11:21: mouth 2 (two) Medical times Branch daily. gabapentin 2022-1 Yes 300mg Take 300 [place] 300 mg 0-20 mg by ity of capsule 11:21: mouth 2 (two) Medical times Branch daily. gabapentin 2022-1 Yes 300mg Take 300 [place] 300 mg 0-20 mg by ity of capsule 11:21: mouth 2 (two) Medical times Branch daily. gabapentin 2022-1 Yes 300mg Take 300 [place] 300 mg 0-20 mg by ity of capsule 11:21: mouth (two) Medical times Branch daily. gabapentin 2022-1 Yes 300mg Take 300 [place] 300 mg 0-20 mg by ity of capsule 11:21: mouth (two) Medical times Branch daily. gabapentin 2022-1 Yes 300mg Take 300 [place] 300 mg 0-20 mg by ity of capsule 11:21: mouth 2 (two) Medical times Branch daily. gabapentin 2022-1 Yes 300mg Take 300 [place] 300 mg 0-20 mg by ity of capsule 11:21: mouth (two) Medical times Branch daily. gabapentin 2022-1 Yes 300mg Take 300 [place] 300 mg 0-20 mg by ity of capsule 11:21: mouth 2 (two) Medical times Branch daily. gabapentin 2022-1 Yes 300mg Take 300 [place] 300 mg 0-20 mg by ity of capsule 11:21: mouth 2 (two) Medical times Branch daily. gabapentin 2022-1 Yes 300mg Take 300 [place] 300 mg 0-20 mg by ity of capsule 11:21: mouth 2 (two) Medical times Branch daily. gabapentin 2022-1 Yes 300mg Take 300 [place] 300 mg 0-20 mg by ity of capsule 11:21: mouth 2 [place] 07 (two) Medical times Branch daily. mometasone2021-08 Yes Inhale. Uni vers formoterol 0-20 ity of (DULERA 11:19: [place] INHALE) 44 Medical Branch muscogeeetasone/ 2021-08 Yes Inhale. Uni vers formoterol 0-20 ity of (DULERA 11:19: [place] INHALE) [facility] Yes Inhale. Uni vers formoterol 0-20 ity of (DULERA 11:19: [place] INHALE) 44 Medical Branch muscogeeetasone/ 2021-08 Yes Inhale. Uni vers formoterol 0-20 ity of (DULERA 11:19: [place] INHALE) 44 Medical Branch muscogeeetasone/ 2021-08 Yes Inhale. Uni vers formoterol 0-20 ity of (DULERA 11:19: [place] INHALE) 44 [facility]08 Yes Inhale. Uni vers formoterol 0-20 ity of (DULERA 11:19: [place] INHALE) 44 Medical Branch muscogeeetasone/ 2021-08 Yes Inhale. Uni vers formoterol 0-20 ity of (DULERA 11:19: [place] INHALE) [facility] Yes Inhale. Uni vers formoterol 0-20 ity of (DULERA 11:19: [place] INHALE) [facility] 2021-08 Yes Inhale. Uni vers formoterol 0-20 ity of (DULERA 11:19: [place] INHALE) 44 Medical Branch muscogeeetasone2021-08 Yes Inhale. Uni vers formoterol 0-20 ity of (DULERA 11:19: [place] INHALE) 44 Medical Branch muscogeeetasone/ 2021-08 Yes Inhale. Uni vers formoterol 0-20 ity of (DULERA 11:19: [place] INHALE) Medical Branch muscogeeetasone/ 2021-08 Yes Inhale. Uni vers formoterol 0-20 ity of (DULERA 11:19: [place] INHALE) Medical Branch muscogeeetasone2021-08 Yes Inhale. Uni vers formoterol 0-20 ity of (DULERA 11:19: [place] INHALE) 44 Medical Branch mometasone/ 2021-08 Yes Inhale. Uni vers formoterol 0-20 ity of (DULERA 11:19: [place] INHALE) 44 Medical Branch oxyCODONE-a 2021-08 Yes 1{tbl} Take [...] DAILY 00:00: NEEDED. 00 TAKE 1 No 10 TABLET 3 8-05 TIMES DAILY 00:00: NEEDED. 00 TAKE 1 No 50 TABLET 8-03 DAILY. 00:00: 00 TAKE 1 2021-0 No 50 TABLET 8-03 DAILY. 00:00: 00 TAKE 1 2021-0 No 50 TABLET 8-03 DAILY. 00:00: 00 spironolact 2021-0 2021- No [id number] 100mg Take 1 Univers one 100 mg 5-20 08-19 tablet by ity of tablet 00:00: 04:59 mouth [place] 00 :00 daily for Medical 90 days. Branch mometasone/ 2021-0 Yes Inhale. Uni vers formoterol 5-19 ity of (DULERA 21:29: [place] INHALE) 50 Medical Branch aspirin 81 0 Yes 81mg Take 81 mg U nivers mg chewable 5-19 by mouth ity of tablet 21:29: daily. [address] Branch gabapentin 0 Yes 300mg Take 300 [place] 300 mg 5-19 mg by ity of capsule 21:29: mouth 2 [place] [address] (two) Medical times Branch daily. mometasone/ 2021-0 Yes Inhale. Uni vers formoterol 5-19 ity of (DULERA 21:29: [place] INHALE) 50 Medical Branch aspirin 81 0 Yes 81mg Take 81 mg U nivers mg chewable 5-19 by mouth ity of tablet 21:29: daily. [address] Branch gabapentin 0 Yes 300mg Take 300 [place] 300 mg 5-19 mg by ity of capsule 21:29: mouth 2 [place] [address] (two) Medical times Branch daily. mometasone/ 2021-0 Yes Inhale. Uni vers formoterol 5-19 ity of (DULERA 21:29: [place] INHALE) 50 Medical Branch aspirin 81 2021-0 Yes 81mg Take 81 mg U nivers mg chewable 5-19 by mouth ity of tablet 21:29: daily. [address] gabapentin 2021-0 Yes 300mg Take 300 [place] 300 mg 5-19 mg by ity of capsule 21:29: mouth 2 [place] [address] (two) Medical times Branch daily. lactulose 0 Yes 15mL 15 mL, Univer s (CEPHULAC) 5-19 Oral, QID, ity of solution 15 17:00: First dose [place] mL 00 (after Medical last Branch modificati on) on [facility] 12/17/21 at 1200, Until Discontinu ed, Routine furosemide 2021- No 40mg Take 40 mg Univers (LASIX) 40 12-17 by mouth ity of mg tablet 14:49: 00:00 every [place] 22 :00 morning Medical and Branch evening. torsemide Yes 80mg 80 mg, Univer s (SOAANZ) 12-17 Oral, ity of tablet 80 14:00: DAILY, [place] mg 00 First dose Medical on [facility] Branch 12/17/21 at 0900, Until Discontinu ed, Routine Dose No Unknown 12-17 00:00: 00 Dose 0 No Unknown 12-17 00:00: 00 Dose No Unknown 12-17 00:00: 00 lactulose 2021- No [id number] 15mL Take 15 mL Univers 10 gram/15 12-17 by mouth 4 it y of mL solution 00:00: 04:59 (four) [place] 00 :00 times Medical daily for Branch 90 days. furosemide 2021- No [id number] 60mg Take 1.5 Univers 40 mg 12-17 tablets by ity of tablet 00:00: 04:59 mouth [place] 00 :00 every Medical morning Branch and evening for 90 days. carvediloL 2021- No [id number] 3.125mg Take 1 Univers 3.125 mg 12-17 tablet by ity o f tablet 00:00: 04:59 mouth 2 [place] 00 :00 (two) Medical times Branch daily with meals for 90 days. triamcinolo 2021- No [id number] Apply to [place] [facility] 12-17 area(s) 2 ity of acetonide 00:00: 04:59 (two) [place] 0.1 % 00 :00 times Medical ointment daily for Branch 30 days. carvedilol 2021- No [id number] 3.125mg Take 2.5 Univers 1.25 mg/mL 12-17 [...] No 15mL 15 mL, Unive rs (CEPHULAC) 12-1619 Oral, TID, it y of solution 15 19:00: 14:29 First dose [place] mL 00 :17 (after Medical last Branch modificati on) on Tue12/16/21 at 1400, Until Discontinu ed, Routine torsemide 2021- No 60mg 60 mg, Unive rs (SOAANZ) 12-1618 Oral, ONCE ity of tablet 60 15:45: 15:50 NOW, 1 [place] mg 00 :00 dose, On Medical Tue Branch 12/16/21 at 1045, Routine triamcinolo Yes Topical, [place] ne 18 BID, First ity of acetonide 14:45: dose on (KENALOG) Tue Medical 0.1 % 12/16/21 at Branch ointment 0945, Until Discontinu ed, Routine carvedilol Yes 3.125mg 3.125 mg, Univers (COREG) 18 Oral, BID ity of 1.25 mg/mL 14:30: MEALS, [place] oral 00 First dose Medical suspension on Tue 3.125 mg 12/16/21 at 0930, Until Discontinu [...] 15mL 15 mL, Unive rs (CEPHULAC) 12-16 05-18 Oral, ity of solution 15 14:00: 14:13 DAILY, [place] mL 00 :06 First dose Medical on Tue Branch 12/16/21 at 0900, Until Discontinu ed, Routine furosemide 2021- No 40mg 40 mg, Univ ers (LASIX) 12-16-18 Oral, ity of tablet 40 14:00: 16:26 DAILY, [place] mg 00 :55 First dose Medical on Tue Branch 12/16/21 at 0900, Until Discontinu ed, Routine budesonide- 0 Yes 2{puff} 2 Puff, Univers formoteroL 12-16 Inhalation ity of (SYMBICORT) 13:00: , BID, [place] 80-4.5 00 First dose Medical mcg/actuati (after Branch on inhaler last 2 Puff modificati on) on Tue12/16/21 at 0800, Until Discontinu ed gabapentin Yes 300mg 300 mg, Uni vers (NEURONTIN) 18 Oral, BID, it y of capsule 300 13:00: First dose [place] mg 00 on Tue Medical 12/16/21 at Branch 0800, Until Discontinu ed, Routine ipratropium Yes 3mL 3 mL, Unive rs -albuteroL - Inhalation ity of (DUONEB) 09:00: , Q4H, [place] 0.5 mg-3 00 First dose Medic al mg(2.5 mg (after Branch base)/3 mL last nebulizer modificati solution 3 on) on Tue mL 12/16/21 at 0400, Until Discontinu ed, Routine albuterol 0 Yes 2.5mg 2.5 mg, Univ ers (PROVENTIL) -18 Inhalation it y of 2.5 mg /3 08:29: , Q6HPRN, [place] mL (0.083 37 Starting Medica l %) on Tue Branch nebulizer 12/16/21 at solution 0329, 2.5 mg Until Discontinu ed, Routine, Shortness of Breath, Wheezing acetaminoph 0 Yes 650mg 650 mg, Un [place] en -18 Oral, ity of (TYLENOL) 08:02: Q6HPRN, [place] tablet 650 27 Starting Medic al mg on Tue Branch 12/16/21 at 0302, Until Discontinu ed, Routine, Pain (scale 1-3) traMADoL 2021- No 50mg 50 mg, Univer s (ULTRAM) 12-16 Oral, ity of tablet 50 08:02: 08:01 Q8HPRN, [place] mg 27 :27 Starting Medical on Tue Branch 12/16/21 at 0302, Until Tue12/18/21 at 0301, Routine, Pain (scale 4-6) iohexol 2021- No [id number] 80mL 80 mL, Uni vers (OMNIPAQUE 12-16 Intravenou it y of 350 02:15: 02:15 s, ONCE, 1 [place] BULK-100 00 :00 dose, On Medical mL) [facility] injection 12/15/21 at 80 mL 2115, Routine furosemide 2021- No 80mg 80 mg, IV U nivers (LASIX) 12-16 Push, ity of injection 02:00: 01:23 ONCE, 1 [place] 80 mg 00 :00 dose, On Medical [facility] 12/15/21 at 2100, LARRY aspirin 2021- No 325mg 325 mg, Unive rs tablet 325 12-15 Oral, ity of mg 23:00: 22:47 ONCE, 1 [place] 00 :00 dose, On [facility] 12/15/21 at 1800, STAT ipratropium 2021- No 3mL 3 mL, Univ ers -albuteroL 12-15 Inhalation it y of (DUONEB) 21:48: 22:47 , ONCE [place] 0.5 mg-3 00 :00 NOW, 1 Medical mg(2.5 mg dose, On Branch base)/3 mL Tue nebulizer 12/15/21 at solution 3 1700, LARRY mL sodium 2021-0 Yes 5mL 5 mL, Univers chloride 12-15 Intravenou ity o f (NS) 21:28: s, PRN, [place] injection 5 01 Starting Medi reynaldo mL on [facility] Branch 12/15/21 at 1628, Until Discontinu ed, Routine, IV line flushing azithromyci 2021-0 202- No 500mg 500 mg, U nivers n 4-08 04-09 Oral, ity of (ZITHROMAX) 13:00: 00:59 ONCE, 1 [place] tablet 500 00 :00 dose, On Medic al mg Tue11/06/21 Branch at 0800, Routine
Reason for Anti-Infec tive: Empiric Therapy for Suspected Infection< br>Empiric Therapy Site: Respirator y
Durat ion of therapy: 72 hours albuterol 2021-0 Yes [id number] 2.5mg Inhale 3 Univers 2.5 mg /3 4-08 mL every 4 ity of mL (0.083 00:00: (four) [place] %) 00 hours as Medical nebulizer needed for Bran ch solution Wheezing or Shortness of Breath. albuterol 2021-0 Yes [id number] 2.5mg Inhale 3 Univers 2.5 mg /3 4-08 mL every 4 ity of mL (0.083 00:00: (four) [place] %) 00 hours as Medical nebulizer needed for Bran ch solution Wheezing or Shortness of Breath. albuterol 2021-0 Yes [id number] 2.5mg Inhale 3 Univers 2.5 mg /3 4-08 mL every 4 ity of mL (0.083 00:00: (four) [place] %) 00 hours as Medical nebulizer needed for Bran ch solution Wheezing or Shortness of Breath. albuterol 2021-0 Yes [id number] 2.5mg Inhale 3 Univers 2.5 mg /3 4-08 mL every 4 ity of mL (0.083 00:00: (four) [place] %) 00 hours as Medical nebulizer needed for Bran ch solution Wheezing or Shortness of Breath. albuterol 2021-0 Yes [id number] 2.5mg Inhale 3 Univers 2.5 mg /3 4-08 mL every 4 ity of mL (0.083 00:00: (four) [place] %) 00 hours as Medical nebulizer needed for Bran ch solution Wheezing or Shortness of Breath. albuterol 2021-0 Yes [id number] 2.5mg Inhale 3 Univers 2.5 mg /3 4-08 mL every 4 ity of mL (0.083 00:00: (four) [place] %) 00 hours as Medical nebulizer needed for Bran ch solution Wheezing or Shortness of Breath. albuterol 2022-0 Yes [id number] 2.5mg Inhale 3 Univers 2.5 mg /3 4-08 mL every 4 ity of mL (0.083 00:00: (four) [place] %) 00 hours as Medical nebulizer needed for Bran ch solution Wheezing or Shortness of Breath. albuterol 2022-0 Yes [id number] 2.5mg Inhale 3 Univers 2.5 mg /3 4-08 mL every 4 ity of mL (0.083 00:00: (four) [place] %) 00 hours as Medical nebulizer needed for Bran ch solution Wheezing or Shortness of Breath. albuterol 2022-0 Yes [id number] 2.5mg Inhale 3 Univers 2.5 mg /3 4-08 mL every 4 ity of mL (0.083 00:00: (four) [place] %) 00 hours as Medical nebulizer needed for Bran ch solution Wheezing or Shortness of Breath. albuterol 2022-0 Yes [id number] 2.5mg Inhale 3 Univers 2.5 mg /3 4-08 mL every 4 ity of mL (0.083 00:00: (four) [place] %) 00 hours as Medical nebulizer needed for Bran ch solution Wheezing or Shortness of Breath. albuterol 2022-0 Yes [id number] 2.5mg Inhale 3 Univers 2.5 mg /3 4-08 mL every 4 ity of mL (0.083 00:00: (four) [place] %) 00 hours as Medical nebulizer needed for Bran ch solution Wheezing or Shortness of Breath. albuterol 2022-0 Yes [id number] 2.5mg Inhale 3 Univers 2.5 mg /3 4-08 mL every 4 ity of mL (0.083 00:00: (four) [place] %) 00 hours as Medical nebulizer needed for Bran ch solution Wheezing or Shortness of Breath. albuterol 2022-0 Yes [id number] 2.5mg Inhale 3 Univers 2.5 mg /3 4-08 mL every 4 ity of mL (0.083 00:00: (four) [place] %) 00 hours as Medical nebulizer needed for Bran ch solution Wheezing or Shortness of Breath. albuterol 2021-0 Yes [id number] 2.5mg Inhale 3 Univers 2.5 mg /3 4-08 mL every 4 ity of mL (0.083 00:00: (four) [place] %) 00 hours as Medical nebulizer needed for Bran ch solution Wheezing or Shortness of Breath. albuterol 2021-0 Yes [id number] 2.5mg Inhale 3 Univers 2.5 mg /3 4-08 mL every 4 ity of mL (0.083 00:00: (four) [place] %) 00 hours as Medical nebulizer needed for Bran ch solution Wheezing or Shortness of Breath. albuterol 2021-0 Yes [id number] 2.5mg Inhale 3 Univers 2.5 mg /3 4-08 mL every 4 ity of mL (0.083 00:00: (four) [place] %) 00 hours as Medical nebulizer needed for Bran ch solution Wheezing or Shortness of Breath. albuterol 2021-0 Yes [id number] 2.5mg Inhale 3 Univers 2.5 mg /3 4-08 mL every 4 ity of mL (0.083 00:00: (four) [place] %) 00 hours as Medical nebulizer needed for Bran ch solution Wheezing or Shortness of Breath. ipratropium 2021-2021- No [id number] .5mg Inhale 2.5 Univers 0.02 % 11-06 05-18 mL every 4 ity of nebulizer 00:00: 00:00 (four) [place] solution 00 :00 hours as Medical needed for Branch Wheezing or Shortness of Breath. aspirin 2021-0 2021- No [id number] 325mg Take 1 U nivers E.C. 325 mg 11-06 tablet by it y of EC tablet 00:00: 04:59 mouth [place] 00 :00 daily with Medical breakfast Branch for 30 days. cholecalcif 2021-0 2021- No [id number] 2000U Take 2 Univers tere, 11-06- tablets by ity of vitamin D3, 00:00: 04:59 mouth [place] 25 mcg 00 :00 daily for Medical (1,000 30 days. Branch unit) tablet metoprolol 2021-0 2021- No [id number] 25mg Take 1 Univers succinate 11-06- tablet by ity of XL 25 mg 24 00:00: 04:59 mouth [place] hr tablet 00 :00 daily for Medic al 30 days. Branch aspirin 2021- No [id number] 325mg Take 1 U nivers E.C. 325 mg 11-06 tablet by it y of EC tablet 00:00: 04:59 mouth [place] 00 :00 daily with Medical breakfast [facility] for 30 days. cholecalcif 2021- No [id number] 2000U Take 2 Univers tere, 11-06- tablets by ity of vitamin D3, 00:00: 04:59 mouth [place] 25 mcg 00 :00 daily for Medical (1,000 30 days. Branch unit) tablet metoprolol 2021- No [id number] 25mg Take 1 Univers succinate 11-06 tablet by ity of XL 25 mg 24 00:00: 04:59 mouth [place] hr tablet 00 :00 daily for Medic al 30 days. Branch predniSONE 2021- No [id number] 50mg Take 1 Univers 50 mg 11-06 tablet by ity of tablet 00:00: 04:59 mouth [place] 00 :00 every day Medical at 1200 Branch (noon) for 3 days. predniSONE 2021- No [id number] 50mg Take 1 Univers 50 mg 11-06- tablet by ity of tablet 00:00: 04:59 mouth [place] 00 :00 every day Medical at 1200 Branch (noon) for 3 days. mometasone/ Yes Inhale. Uni vers formoterol 4-07 ity of (DULERA 18:48: [place] INHALE) 11 [facility] Branch mometasone/ Yes Inhale. Uni vers formoterol 4-07 ity of (DULERA 18:48: [place] INHALE) 11 Medical Branch cholecalcif Yes 2000U 2,000 Univ ers tere 4-07 Units, ity of (vitamin 15:00: Oral, [place] D3) tablet 00 DAILY, Medical 2,000 Units First dose Br anch on [place] 11/05/21 at 1000, Until Discontinu ed, Routine gabapentin 2021- No 300mg Take 300 U nivers 300 mg 4-07 04-07 mg by ity of capsule 14:03: 00:00 mouth 2 [place] 31 :00 (two) Medical times Branch daily. Unsure on dose ALBUTEROL No Inhale. [facility] ers INHALE 4-07 04-07 ity of 14:03: 00:00 [place] 31 :00 Medical Branch albuterol Yes [id number] 2{puff} Inhale 2 Univers 90 4-07 Puffs ity of mcg/actuati 00:00: every 6 [place] on inhaler 00 (six) Medical hours as Branch needed for Wheezing or Shortness of Breath. Budesonide Yes [id number] 1{puff} Inhale 1 Univers 90 4-07 Puff every ity of mcg/actuati 00:00: morning [place] on aerosol 00 and Medical powder evening. Branch HYDROcodone Yes [id number] 1{tbl} Take 1 Un savanna -acetaminop 4-07 tablet by ity of hen 5-325 00:00: mouth [place] mg tablet 00 every 6 Medical (six) Branch hours as needed for Pain (scale 4-6). Indication s: acute pain albuterol Yes [id number] 2{puff} Inhale 2 Univers 90 4-07 Puffs ity of mcg/actuati 00:00: every 6 [place] on inhaler 00 (six) Medical hours as Branch needed for Wheezing or Shortness of Breath. albuterol Yes [id number] 2{puff} Inhale 2 Univers 90 4-07 Puffs ity of mcg/actuati 00:00: every 6 [place] on inhaler 00 (six) Medical hours as Branch needed for Wheezing or Shortness of Breath. albuterol Yes [id number] 2{puff} Inhale 2 Univers 90 4-07 Puffs ity of mcg/actuati 00:00: every 6 [place] on inhaler 00 (six) Medical hours as Branch needed for Wheezing or Shortness of Breath. albuterol Yes [id number] 2{puff} Inhale 2 Univers 90 4-07 Puffs ity of mcg/actuati 00:00: every 6 [place] on inhaler 00 (six) Medical hours as Branch needed for Wheezing or Shortness of Breath. albuterol Yes [id number] 2{puff} Inhale 2 Univers 90 4-07 Puffs ity of mcg/actuati 00:00: every 6 [place] on inhaler 00 (six) Medical hours as Branch needed for Wheezing or Shortness of Breath. albuterol Yes [id number] 2{puff} Inhale 2 Univers 90 4-07 Puffs ity of mcg/actuati 00:00: every 6 [place] on inhaler 00 (six) Medical hours as Branch needed for Wheezing or Shortness of Breath. albuterol Yes [id number] 2{puff} Inhale 2 Univers 90 4-07 Puffs ity of mcg/actuati 00:00: every 6 [place] on inhaler 00 (six) Medical hours as Branch needed for Wheezing or Shortness of Breath. albuterol Yes [id number] 2{puff} Inhale 2 Univers 90 4-07 Puffs ity of mcg/actuati 00:00: every 6 [place] on inhaler 00 (six) Medical hours as Branch needed for Wheezing or Shortness of Breath. albuterol Yes [id number] 2{puff} Inhale 2 Univers 90 4-07 Puffs ity of mcg/actuati 00:00: every 6 [place] on inhaler 00 (six) Medical hours as Branch needed for Wheezing or Shortness of Breath. albuterol Yes [id number] 2{puff} Inhale 2 Univers 90 4-07 Puffs ity of mcg/actuati 00:00: every 6 [place] on inhaler 00 (six) Medical hours as Branch needed for Wheezing or Shortness of Breath. albuterol Yes [id number] 2{puff} Inhale 2 Univers 90 4-07 Puffs ity of mcg/actuati 00:00: every 6 [place] on inhaler 00 (six) Medical hours as Branch needed for Wheezing or Shortness of Breath. albuterol Yes [id number] 2{puff} Inhale 2 Univers 90 4-07 Puffs ity of mcg/actuati 00:00: every 6 [place] on inhaler 00 (six) Medical hours as Branch needed for Wheezing or Shortness of Breath. albuterol Yes [id number] 2{puff} Inhale 2 Univers 90 4-07 Puffs ity of mcg/actuati 00:00: every 6 [place] on inhaler 00 (six) Medical hours as Branch needed for Wheezing or Shortness of Breath. albuterol Yes [id number] 2{puff} Inhale 2 Univers 90 4-07 Puffs ity of mcg/actuati 00:00: every 6 [place] on inhaler 00 (six) Medical hours as Branch needed for Wheezing or Shortness of Breath. albuterol Yes [id number] 2{puff} Inhale 2 Univers 90 4-07 Puffs ity of mcg/actuati 00:00: every 6 [place] on inhaler 00 (six) Medical hours as Branch needed for Wheezing or Shortness of Breath. albuterol Yes [id number] 2{puff} Inhale 2 Univers 90 4-07 Puffs ity of mcg/actuati 00:00: every 6 [place] on inhaler 00 (six) Medical hours as Branch needed for Wheezing or Shortness of Breath. albuterol Yes [id number] 2{puff} Inhale 2 Univers 90 4-07 Puffs ity of mcg/actuati 00:00: every 6 [place] on inhaler 00 (six) Medical hours as Branch needed for Wheezing or Shortness of Breath. albuterol Yes [id number] 2{puff} Inhale 2 Univers 90 4-07 Puffs ity of mcg/actuati 00:00: every 6 [place] on inhaler 00 (six) Medical hours as Branch needed for Wheezing or Shortness of Breath. Budesonide Yes [id number] 1{puff} Inhale 1 Univers 90 4-07 Puff every ity of mcg/actuati 00:00: morning [place] on aerosol 00 and Medical powder evening. Branch HYDROcodone Yes [id number] 1{tbl} Take 1 Un [place] -acetaminop 4-07 tablet by ity of hen 5-325 00:00: mouth [place] mg tablet 00 every 6 Medical (six) Branch hours as needed for Pain (scale 4-6). Indication s: acute pain Budesonide 202- No [id number] 1{puff} Inhale 1 Univers 90 11-05-18 Puff every ity of mcg/actuati 00:00: 00:00 [place] on aerosol 00 :00 and Medical powder evening. [facility] HYDROcodone 2021- No 4647 1{tbl} Take 1 U nivers -acetaminop 11-0518 tablet by it y of hen 5-325 00:00: 00:00 mouth [place] mg tablet 00 :00 every 6 Medical (six) Branch hours as needed for Pain (scale 4-6). Indication s: acute pain gabapentin No [id number] 300mg Take 1 Univers 300 mg 11-05 capsule by ity of capsule 00:00: 04:59 mouth 2 [place] 00 :00 (two) Medical times [facility] daily for 30 days. gabapentin 2021- No [id number] 300mg Take 1 Univers 300 mg 11-05- capsule by ity of capsule 00:00: 04:59 mouth 2 [place] 00 :00 (two) Medical times [facility] daily for 30 days. azithromyci 2021- No [id number] 500mg Take 1 Univers n 500 mg 11-0510 tablet by ity o f tablet 00:00: 04:59 mouth [place] 00 :00 daily for Medical 2 doses. [facility] azithromyci 2021- No [id number] 500mg Take 1 Univers n 500 mg 11-05-10 tablet by ity o f tablet 00:00: 04:59 mouth [place] 00 :00 daily for Medical 2 doses. [facility] enoxaparin Yes 30mg 30 mg, Unive rs (LOVENOX) 11-04 Subcutaneo ity of injection 22:00: [place], DAILY, [place] 30 mg 00 First dose Medical on Tue [facility] 11/04/21 at 1700, Until Discontinu ed, Routine sulfur 2021- No [id number] 5mL 5 mL, Univ ers hexafluorid 11-04-06 Intravenou i ty of e microsphr 17:45: 17:45 s, ONCE, 1 [place] (LUMASON) 00 :00 dose, On Medica l injection 5 4/6/22 Br anch mL at 1245, Routine
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 Restricted medication : ERIC ARANA predniSONE Yes 50mg 50 mg, Unive rs (DELTASONE) 06 Oral, ity of tablet 50 17:00: QNOON, [...] Oral, ity of XL (TOPROL 14:00: DAILY, [place] XL) tablet 00 First dose Med ical [...] at 0330, Until Discontinu ed, Routine budesonide 2022-0 Yes .5mg 0.5 mg, Univ ers (PULMICORT 4-06 Inhalation ity of RESPULE) 08:00: , BID, [...] mL last nebulizer reorder) solution 3 on 11/04/21 at 0300, Until Discontinu ed, Routine gabapentin 2021-0 Yes 300mg 300 mg, Uni vers (NEURONTIN) 4-06 Oral, BID, it y of capsule 300 08:00: First dose [place] mg 00 on Tue [facility] 11/04/21 at Branch 0300, Until Discontinu ed, Routine docusate 2021-0 Yes 100mg 100 mg, Unive rs (COLACE) 4-06 Oral, BID, ity o f capsule 100 08:00: First dose [place] mg 00 on Tue [facility] 11/04/21 at Branch 0300, Until Discontinu ed, Routine ondansetron 2021-0 Yes 4mg 4 mg, Slow Univers (ZOFRAN 11-04 IV Push, ity of (PF)) 07:56: Q6HPRN, [place] injection 4 12 Starting Medi reynaldo mg on Tue [facility] 11/04/21 at 0256, Until Discontinu ed, Routine, Nausea and Vomiting (N/V) ipratropium 2021-0 202- No 3mL 3 mL, Univ ers -albuteroL 11-04 04-06 Inhalation it y of (DUONEB) 04:45: 03:59 , ONCE, 1 [place] 0.5 mg-3 00 :00 dose, On Medical mg(2.5 mg 11/03/21 Bran ch base)/3 mL at 2345, nebulizer Routine solution 3 mL methylpredn 2022-0 2022- No 125mg 125 mg, IV Univers isolone sod 4-06 04-06 Piggyback, i ty of succ 04:45: 04:59 ONCE, 1 [place] (SOLU-MEDRO 00 :00 dose, On Medi reynaldo L) 11/03/21 Branch injection at 2345, 125 mg LARRY Dose 2-0 No Unknown 2-28 00:00: 00 Dose 2022-0 No Unknown 2-28 00:00: 00 Dulera 100 2-0 No 2mcg/ac mcg-5 2-28 tuation mcg/actuati 00:00: [...] 00:00: mL oral 00 syrup Dulera 200 2-0 No 1mcg/ac mcg-5 2-16 tuation mcg/actuati 00:00: [...] %) 00 solution for nebulizatio n prednisone 2-0 No mg 20 mg 1-25 tablet 00:00: [...] mg 1-25 tablet 00:00: 00 codeine 10 2022-0 No mg/5 mL mg-guaifene 1-25 sin 100 00:00: mg/5 mL 00 oral liquid Dose 2021-0 No Unknown 04-20 00:00: 00 Dose 2021-0 No Unknown 04-20 00:00: 00 albuterol 2021-0 No 3/3 mL sulfate 2.5 9-20 (0.083 [...] 20 mg 3-22 tablet 00:00: 00 Dose 1-0 No Unknown 3-22 00:00: 00 albuterol 1-0 No 3/3 mL sulfate 2.5 3-22 (0.083 mg/3 mL 00:00: %) (0.083 %) 00 solution for nebulizatio n albuterol 0 No 3/3 mL sulfate 2.5 3-22 (0.083 mg/3 mL 00:00: %) (0.083 %) 00 solution for nebulizatio n Advair 2019-08 No 1mcg/do Diskus 250 1-06 se mcg-50 00:00: mcg/dose 00 powder for inhalation Advair 2019-08 No 1mcg/do Diskus 250 1-06 se mcg-50 00:00: mcg/dose 00 powder for inhalation loratadine 2019-08 No 1mg 10 mg 1-06 tablet 00:00: 00 loratadine 2019-08 No 1mg 10 mg 1-06 tablet 00:00: 00 furosemide 2019-08 No 1mg 20 mg 1-06 tablet 00:00: 00 gabapentin 2019-08 No 1mg 100 mg 1-06 capsule 00:00: 00 albuterol 2019-08 No 3/3 mL sulfate 2.5 1-06 (0.083 mg/3 mL 00:00: %) (0.083 %) 00 solution for nebulizatio n furosemide 2019-08 No 1mg 20 mg 1-06 tablet 00:00: 00 gabapentin 2019-08 No 1mg 100 mg 1-06 capsule 00:00: 00 albuterol 2019-08 No 3/3 mL sulfate 2.5 1-06 (0.083 mg/3 mL 00:00: %) (0.083 %) 00 solution for nebulizatio n Advair 2019-08 No 1mcg/do Diskus 250 1-06 se mcg-50 00:00: mcg/dose 00 powder for inhalation loratadine 2019-08 No 1mg 10 mg 1-06 tablet 00:00: 00 furosemide 2019-08 No 1mg 20 mg 1-06 tablet 00:00: 00 gabapentin 2019-08 No 1mg 100 mg 1-06 capsule 00:00: 00 albuterol 2019-08 No 3/3 mL sulfate 2.5 1-06 (0.083 mg/3 mL 00:00: %) (0.083 %) 00 solution for nebulizatio n albuterol No 3/3 mL sulfate 2.5 7-27 (0.083 [...] Immunizations Ordered Filled Immunization Date Status Comments [facility] e Immunization Name Name Influenza Virus 2021-12-17 Completed Universit y of Vaccine Quad IM, 00:00:00 [place] Me dical Preserv and ABX Branch Free [...] Universit y of Vaccine Quad IM, 00:00:00 [place] Me dical Preserv and ABX Branch Free 6 MO-64 YRS Vital Signs Vital Name Observation Time Observation Value Comments Source Systolic blood 2022-07-08 15:46:00 129 mm[Hg] Univer sity of pressure [facility] [facility] Branch Diastolic blood 2022-07-08 15:46:00 89 mm[Hg] Unive rsity of pressure [place] [facility] Heart rate 2022-07-08 15:46:00 113 /min Universi ty of [place] [facility] Body temperature 2022-07-08 15:46:00 36.72 Lesley Univ ersity of [place] [facility] Body height 2022-07-08 15:46:00 180.3 cm Universi ty of [place] [facility] Body weight 2022-07-08 15:46:00 97.024 kg Universi ty of [place] [facility] BMI 2022-07-08 15:46:00 29.83 kg/m2 Universi ty of [place] [facility] Oxygen saturation in 2022-07-08 15:46:00 90 /min University of Arterial blood by [place] Medi reynaldo Pulse oximetry Branch Systolic blood 2022-05-20 16:17:00 138 mm[Hg] Univer sity of pressure [place] [facility] Diastolic blood 2022-05-20 16:17:00 85 mm[Hg] Unive rsity of pressure [place] [facility] Heart rate 2022-05-20 16:17:00 104 /min Universi ty [facility] [place] [facility] Body temperature 2022-05-20 16:17:00 36.22 Lesley Univ ersity of [place] [facility] Body height 2022-05-20 16:17:00 180.3 cm Universi ty [facility] [place] [facility] Body weight 2022-05-20 16:17:00 96.344 kg Universi ty [facility] [place] [facility] BMI 2022-05-20 16:17:00 29.62 kg/m2 Universi ty of [place] [facility] Oxygen saturation in 2022-05-20 16:17:00 88 /min University of Arterial blood by [place] Medi reynaldo Pulse oximetry Branch Heart rate 2021-12-18 00:28:00 85 /min Universi ty of [place] [facility] Respiratory rate 2021-12-18 00:28:00 18 /min Univ ersity of [place] [facility] Oxygen saturation in 2021-12-18 00:28:00 98 /min University of Arterial blood by [place] Medi reynaldo Pulse oximetry Branch Systolic blood 2021-12-17 22:10:00 116 mm[Hg] Univer sity of pressure [place] [facility] Diastolic blood 2021-12-17 22:10:00 79 mm[Hg] Unive rsity of pressure [place] [facility] Body temperature 2021-12-17 22:10:00 36.11 Lesley [facility] ersity of [place] [facility] Body height 2021-12-16 09:25:00 180.3 cm Universi ty of [place] [facility] Body weight 2021-12-16 09:25:00 106.958 kg Universi ty of [place] [facility] BMI 2021-12-16 09:25:00 32.89 kg/m2 Universi ty [facility] Respiratory rate 2021-11-05 21:30:00 20 /min [facility] Oxygen saturation in 2021-11-05 21:30:00 93 /min [facility] Arterial blood by [facility] Pulse oximetry Branch Systolic blood 2021-11-05 16:16:00 116 mm[Hg] Univer sity of [facility] Diastolic blood 2021-11-05 16:16:00 71 mm[Hg] Unive [facility] Heart rate 2021-11-05 16:16:00 95 /min Universi ty of [facility] Body temperature 2021-11-05 16:16:00 36.28 Lesley [facility] Body weight 2021-11-05 09:32:00 100.971 kg Universi ty of [place] [facility] BMI 2021-11-05 09:32:00 31.05 kg/m2 Universi ty of [facility] Body height 2021-11-04 17:37:00 180.3 cm Universi ty [facility] BP Systolic 2022-07-01 16:15:00 116 mm[Hg] BP Diastolic 2022-07-01 16:15:00 72 mm[Hg] Weight Measured 2022-07-01 16:15:00 209.20 pounds Height Measured 2022-07-01 16:15:00 70.85 inches Body Temperature 2022-07-01 16:15:00 98.60 degrees Heart Rate 2022-07-01 16:15:00 110.00 /min Respiratory Rate 2022-07-01 16:15:00 18.00 /min BP Systolic 2022-04-07 10:48:00 118 mm[Hg] BP [...] Date / Time Performing Clinician Source Performed EXTERNAL PROVIDER RECORDS 2022-07-28 06:01:00 Doctor Unassigned, [facility] IRON PANEL 2022-05-20 18:03:00 Loida [facility] REFERRAL- 2022-05-04 05:01:00 Doctor Unassigned, [facility] REQUEST/RESPONSE [place] [facility] BASIC METABOLIC PANEL 2021-12-17 17:36:00 Javier Colbert [facility] (NA, K, CL, CO2, GLUCOSE, Medica l Branch BUN, CREATININE, CA) BASIC METABOLIC PANEL 2021-12-17 00:18:00 Andria [facility] (NA, K, CL, CO2, GLUCOSE, Medica l Branch BUN, CREATININE, CA) HCV ANTIBODY 2021-12-16 22:26:00 Mynor [facility] US ABDOMEN LIMITED WITH 2021-12-16 10:43:58 Leia Flor [facility] DOPPLER [facility] CT ABDOMEN PELVIS WO 2021-12-16 06:10:43 Boyd Claros [facility] CONTRAST [facility] CT THORAX W CONTRAST 2021-12-16 02:02:00 Brigida Ulloa [facility] LIPASE 2021-12-15 22:37:00 [facility] 2021-12-15 22:37:[address] [facility] THYROID STIMULATING 2021-12-15 22:37:00 Laila Brigida [facility] COMP. METABOLIC PANEL 2021-12-15 22:37:00 [facility] ([id number]) [facility] CBC WITH DIFF 2021-12-15 22:37:[address] [facility] N-TERMINAL PRO-BNP 2021-12-15 22:37:00 Laila [facility] XR CHEST 2 VW 2021-12-15 22:22:00 Laila [facility] MAGNESIUM 2021-11-05 16:31:00 [facility] COMP. METABOLIC PANEL 2021-11-05 16:31:00 America edmond [facility] ([id number]) [facility] LIPID PANEL ([id number])(TOTAL 2021-11-05 16:31:00 Pradeep [facility] CHOLESTEROL, [facility] TRIGLYCERIDES, HDL) TROPONIN I 2021-11-05 09:50:00 [facility] FREE T4 2021-11-05 09:50:[address] [facility] THYROID STIMULATING 2021-11-05 09:50:00 Jorge Fernández [facility] N-TERMINAL PRO-BNP 2021-11-05 09:50:00 [facility] TROPONIN I 2021-11-04 23:44:00 [facility] TRANSTHORACIC ECHO (TTE) 2021-11-04 17:37:10 Nader Cross [facility] COMPLETE W/ CONTRAST Medical [facility] PHOSPHORUS 2021-11-04 12:05:00 America edmond [facility] URIC ACID 2021-11-04 12:05:00 [place] edmond [facility] MAGNESIUM 2021-11-04 12:05:00 [place] edmond [facility] TROPONIN I 2021-11-04 12:05:00 [place] edmond [facility] LIPID PANEL ([id number])(TOTAL 2021-11-04 12:05:00 Nader Cross [facility] CHOLESTEROL, Medical Branch TRIGLYCERIDES, HDL) VITAMIN B12, LEVEL 2021-11-04 08:48:00 Nader Cross [facility] TROPONIN I 2021-11-04 08:48:00 [place] edmond [facility] SEDIMENTATION RATE 2021-11-04 08:48:00 Nader Cross [facility] VITAMIN D, 25-OH 2021-11-04 08:48:00 Aemrica [facility] PROCALCITONIN 2021-11-04 08:48:00 [place] edmond [facility] URINE DRUG (IMMUNOASSAY) 2021-11-04 08:08:00 [facility] Medical [facility] SCREEN URINALYSIS 2021-11-04 08:08:00 Nader Cross [facility] URINE CULTURE 2021-11-04 08:08:00 [place] edmond [facility] UREA NITROGEN, URINE 2021-11-04 08:08:00 Nader Cross [facility] SODIUM, URINE RANDOM 2021-11-04 08:08:00 [place] edmond [facility] PROTEIN CREAT RATIO URINE 2021-11-04 08:08:00 [facility] RESPIRATORY PANEL BY PCR 2021-11-04 08:08:00 Nader Cross [facility] COVID-19 (ID NOW RAPID 2021-11-04 04:03:00 Sheba Lott [facility] TESTING) Medical Branch LAB ONLY COVID 2021-11-04 04:03:00 Sheba Lott [facility] [place] INTERPRETATION [facility] Branch XR CHEST 1 VW 2021-11-04 02:57:[address] [facility] ACUTE CARE ARTERIAL BLOOD 2021-11-04 02:57:00 [facility] Branch LIPASE 2021-11-04 02:45:[address] [facility] TROPONIN I 2021-11-04 02:45:[address] [facility] COMP. METABOLIC PANEL 2021-11-04 02:45:00 Birgit Lemon [facility] ([id number]) Medical Branch CBC WITH DIFF 2021-11-04 02:45:[address] [facility] GLYCOSYLATED HEMOGLOBIN 2021-11-04 02:45:00 Nader Cross [facility] (A1C) [facility] PROTHROMBIN TIME / INR 2021-11-04 02:45:00 Birgit Lemon [facility] ACTIVATED PARTIAL 2021-11-04 02:45:00 Birgit Lemon [facility] THRMPLAS MARIAM [facility] HB ECG ROUTINE & RHYTHM 2021-11-04 02:13:29 Birgit Lemon [facility] NOTICE OF PRIVACY 2021-11-04 01:59:17 Doctor Unassigned, [facility] PRACTICES [place] [facility] CONSENT/REFUSAL FOR 2021-11-04 01:58:37 Doctor Unassigned, [facility] DIAGNOSIS AND TREATMENT [place] [facility] Plan of Care Planned Activity Planned Date Details Comments Source Goal Plan of Care Note [code = 95518-0] Goal Plan of Care Note [code = 54285-0] Goal Plan of Care Note [code = 97635-4] Goal Plan of Care Note [code = 89602-4] Goal Plan of Care Note [code = 15529-4] Goal Plan of Care Note [code = 53419-9] Goal Plan of Care Note [code = 63697-9] Goal Plan of Care Note [code = 53581-8] Goal Plan of Care Note [code = 55743-4] Goal Plan of Care Note [code = 54881-1] Goal Plan of Care Note [code = 49782-7] Goal Plan of Care Note [code = 70673-5] Goal Plan of Care Note [code = 55867-5] Goal Plan of Care Note [code = 91388-0] Goal Plan of Care Note [code = 11439-3] Goal Plan of Care Note [code = 99655-5] Goal Plan of Care Note [code = 30684-4] Goal Plan of Care Note [code = 29007-9] Goal Plan of Care Note [code = 14695-5] Goal Plan of Care Note [code = 69447-0] Goal Plan of Care Note [code = 73766-1] Goal Plan of Care Note [code = 40472-8] Goal Plan of Care Note [code = 45708-9] Goal Plan of Care Note [code = 39977-6] Goal Plan of Care Note [code = 11394-2] Goal Plan of Care Note [code = 76639-7] Goal Plan of Care Note [code = 57645-8] Goal Plan of Care Note [code = 64602-9] Goal Plan of Care Note [code = 28732-9] Goal Plan of Care Note [code = 70055-1] Goal Plan of Care Note [code = 01425-1] Goal Plan of Care Note [code = 18841-8] Goal Plan of Care Note [code = 36663-2] Goal Plan of Care Note [code = 00213-8] Goal Plan of Care Note [code = 42508-9] Goal Plan of Care Note [code = 77094-6] Goal Plan of Care Note [code = 85935-9] Goal Plan of Care Note [code = 73730-5] Goal Plan of Care Note [code = 86519-6] Goal Plan of Care Note [code = 23860-7] Goal Plan of Care Note [code = 34508-4] Goal Plan of Care Note [code = 59371-5] Goal Plan of Care Note [code = 50712-4] Goal Plan of Care Note [code = 11404-9] Goal Plan of Care Note [code = 77349-0] Goal Plan of Care Note [code = 11754-9] Goal Plan of Care Note [code = 39559-9] Goal Plan of Care Note [code = 18150-3] Goal Plan of Care Note [code = 21032-4] Goal Plan of Care Note [code = 81730-3] Goal Plan of Care Note [code = 63756-2] Goal Plan of Care Note [code = 76850-0] Goal Plan of Care Note [code = 02819-1] Goal Plan of Care Note [code = 30037-0] Encounters Start End Encounter Admission Attending Care Care Encounter Source Date/Time Date/Time Type Type Clinicians Facility Department ID 2022-09-01 2022-09-01 Outpatient Edelmira CLARK [facility] [id number] Univers 00:00:00 00:00:00 [facility] [place] [facility] 2022-08-25 2022-08-25 Outpatient Edelmira CLARK [facility] [id number] Univers 08:02:32 08:02:32 [facility] [place] [facility] 2022-08-25 2022-08-25 Telephone Rodney, [facility] [id number] Univers 00:00:00 00:00:00 Hetal SPECIALTY [id number] ity of [facility] [id number] [facility] AT [id number] [facility] 2022-07-28 2022-07-28 Orders Doctor CARL [id number] Univers 00:00:00 00:00:00 Only Unassigned, RACHEL [id number] ity of [place] [facility] [id number] [place] [id number] [address] 2022-07-08 2022-07-08 Outpatient Edelmira CLARK [facility] [id number] Univers 11:00:00 15:59:50 [facility] [place] [facility] 2022-07-08 2022-07-08 [facility], [facility] [id number] Univers 11:30:00 11:45:00 Visit Clark, Christopher SPECIALTY [id number] ity of C[place] [id number] [place] [id number] Fl beni POASDAS [address] [facility] 2022-07-08 2022-07-08 [facility] [id number] Univers 11:00:00 11:30:00 Visit Christopher SPECIALTY [id number] ity [place] [id number] [place] [id number] Fl beni POSADAS [address] [place] [address] 2022-07-08 2022-07-08 Telephone [facility] [id number] Univers 00:00:00 00:00:00 [place] SPECIALTY [id number] ity of [place] [id number] [place] [id number] Fl beni POSADAS [address] [place] [address] 2022-07-01 2022-07-01 Outpatient [facility] [id number] Feliciano 16:09:47 16:09:47 1201 F Miko 2022-07-01 2022-07-01 Outpatient [id number] 00:00:00 00:00:00 Visit [id number] -[id number] [id number] 2022-06-30 2022-06-30 [facility]phone [facility].2.154.597 [id number] Univers 00:00:00 00:00:00 Christopher SPECIAL[facility] 350.1.13.10 [place] [phone] Fl beni POSADAS [address] [place] [address] 2022-06-30 2022-06-30 Telephone [facility] 1.2.063.664 [id number] Univers 00:00:00 00:00:00 Christopher SPECIALTY 350.1.13.10 [place] [phone] Fl beni Duarte[address] [place] [address] 2022-06-28 2022-06-28 [facility] 1.2.094.085 [id number] Univers 00:00:00 00:00:00 [place] SPECIALTY 350.1.13.10 [place] [phone] Fl bein POSADAS [address] [place] [address] 2022-06-08 2022-06-08 [facility]phone [facility] 1.2.047.569 [id number] Univers 00:00:00 00:00:00 [place] SPECIALTY 350.1.13.10 [place] [phone] Fl beni POSADAS [address] [place] [address] 2022-06-03 2022-06-03 Outpatient Edelmira CLARK [facility] [id number] Univers 00:00:00 00:00:00 CHRISTOPHER ity of [facility] 2022-06-01 2022-06-01 [facility]phone [facility] 1.2.628.133 [id number] Univers 00:00:00 00:00:00 Christopher SPECIALTY 350.1.13.10 [place] [phone] Fl beni POSADAS [address] [place] [address] 2022-05-20 2022-05-20 [facility], [facility] 1.2.840.114 [id number] Univers 13:15:00 13:30:00 Visit Christopher Clark SPECIAL[facility] 350.1.13.10 [place] [phone] Fl beni POSADAS [address] [place] [address] 2022-05-20 2022-05-20 Office [facility] 1.2.840.114 [id number] Univers 11:30:00 12:00:00 Visit Christopher SPECIALTY 350.1.13.10 [place] [phone] Fl beni POSADAS [address] [place] [address] 2022-05-20 2022-05-20 Outpatient R LOIDA [facility] [id number] Univers 11:30:00 11:30:00 CHRISTOPHER ity of [facility] 2022-05-05 2022-05-05 Telephone MELODY ClarkFABIEN 1.2.840.114 [id number] Univers 00:00:00 00:00:00 Christopher [facility] 350.1.13.10 i ty of CL[place] [phone] [facility] [address] 2022-05-04 2022-05-04 Orders Doctor CARL 1.2.840.114 [id number] Univers 00:00:00 00:00:00 Only Unassigned, RACHEL 350.1.13.10 ity of [place] [facility] 4.2.7.2.686 [place] as [phone] [facility] [address] 2022-04-07 2022-04-07 Outpatient [id number]- [id number] gn5znq-c 00:00:00 00:00:00 Visit [id number] -[id number] 2022-03-03 2022-03-03 Outpatient [id number]- [id number] ca [id number] 00:00:00 00:00:00 Visit 57b4-1sf3 3l0-7yr2-7 -8803-6a8 [id number] [id number] d8c0e5 2021-12-15 2021-12-17 [facility] [id number] Univers 15:52:00 21:23:00 [facility] 2021-12-15 2021-12-17 [facility]8 40.114 [id number] Univers 15:52:00 21:23:00 Boyd Claros 350.1.13.10 ity of Lex Mehta [facility] 4.2.7.2.686 [facility] [phone] Medical [address] 2021-11-06 2021-11-06 Transition DONAVAN Davidson 1.2.840.114 [id number] Univers 00:00:00 00:00:00 of Care Nickie LOYD 350.1.13.10 it y of [place] 4.2.7.2.686 [place] s [phone] [facility] [address] 2021-11-03 2021-11-05 [facility] 1.2.840.11 [id number] Univers 21:06:00 18:36:00 Encounter Nader Cross 350.1.13.10 ity of RosaspeteRandaedward [place] 4.2.7.2.686 [facility] [phone] [facility] [address] 2021-11-03 2021-11-05 Outpatient X [facility]E [facility] [id number] Univers 21:06:00 18:36:00 ARNOL [facility] Results Test Description Test Time Test Comments Results Result Comments Source BASIC METABOLIC PANEL (NA, K, CL, CO2, GLUCOSE, BUN, 2021-11 18:59:33 CREATININE, CA) Test Item Value Reference Range Interpretation Comme nts NA (test code = 8878522956) 138 mmol/L 135-145 K (test code = 2285852052) 4.2 mmol/L 3.5-5.0 CL (test code = 1407375371) 97 mmol/L 98-108 L CO2 TOTAL (test code = 4808580556) 38 mmol/L 23-31 H AGAP (test code = 0555599422) 2-16 BUN (test code = 2751478228) 16 mg/dL 7-23 GLUCOSE (test code = 7604887662) 71 mg/dL 70-110 CREATININE (test code = 0.65 mg/dL 0.60-1.25 4826472058) CALCIUM (test code = 1420286356) 8.8 mg/dL 8.6-10.6 eGFR (test code = 0555244126) mL/min/1.73m2 TIFFANY (test code = TIFFANY) Association [...] tests). Lab Interpretation (test code = Abnormal 36256-5) [facility] METABOLIC PANEL (NA, K, CL, CO2, GLUCOSE, BUN, CREATININE, CA)2021-12-17 01:21:47 Test Item Value Reference Range Interpretation Comments NA (test code = 135 mmol/L 135-145 0002339930) K (test code = 3.7 mmol/L 3.5-5.0 4853390855) CL (test code = 100 mmol/L 98-108 9556395905) CO2 TOTAL (test code = 33 mmol/L 23-31 H 5183179119) AGAP (test code = 2-16 9714056945) BUN (test code = 14 mg/dL 7-23 9612719208) GLUCOSE (test code = 112 mg/dL 70-110 H 1859559438) CREATININE (test code = 0.65 mg/dL 0.60-1.25 0904322351) CALCIUM (test code = 8.3 mg/dL 8.6-10.6 L 2711585385) eGFR (test code = mL/min/1.73m2 4293426977) TIFFANY (test code = TIFFANY) Association of [...] tests). Lab Interpretation Abnormal (test code = 31191-3) [facility] [id number] 00:35:35 Test Item Value Reference Range Interpretation Comments HCV Ab (test code = Positive 23799-9) HCV Semi-Quantitative (test code = 32522-8) TIFFANY (test code = Positive for HCV antibody. TIFFANY) This specimen has been reflexed to qualitative PCR test and submitted to [facility]. ?A report will be issued by that laboratory. ?If any questions, contact the Clinical Chemistry Director acquisition cost estimator at [phone].APRI score < 0.5: Suggestive of little to no fibrosisAPRI score > 1.5: Suggestive of moderate to severe fibrosisAPRI score > 2.0: Highly suggestive of cirrhosis. [facility]ATING [id number] 04:08:35 Test Item Value Reference Range Interpretation Comments TSH (test code = See_Comment [Automated message] 6113554682) The system [employer] generated this result transmitted ref erence range: 0.45 - 4 .70 mIU/L. The refe rence range was not u sed to interpret this result as normal/abnor mal. Lab Interpretation (test Normal code = 61604-2) [facility]AL [id number] 01:35:18 Test Item Value Reference Range Interpretation Comments NT-proBNP (test code 74 pg/mL See_Comment [Autom ated = 9132627293) message] The system which generated this result transmitted reference range : <=125. The reference range was not used to interpret this result as normal/abnormal . TIFFANY (test code = TIFFANY) Biotin has been reported to cause a negative bias, interpret results relative to patient's use of biotin. Lab Interpretation Normal (test code = 92479-0) [facility]TR[facility] [id number] 00:16:20 Test Item Value Reference Interpretation Comments Range TROPONIN I (test 0.015 ng/mL See_Comment [Automated code = 3666507532) message] The system which generated this result [...] biotin. Lab Interpretation Normal (test code = 52565-3) [facility] MET[facility]OLIC PANEL (93410)2021-12-15 23:32:43 Test Item Value Reference Range Interpretation Comments NA (test code = 134 mmol/L 135-145 L 8185067256) K (test code = 4.8 mmol/L 3.5-5.0 Slight 7520434866) hemolysis CL (test code = 99 mmol/L 98-108 0813372380) CO2 TOTAL (test code 28 mmol/L 23-31 = 2310679540) AGAP (test code = 2-16 2302539173) BUN (test code = 12 mg/dL 7-23 Slight 2338707012) hemolysis GLUCOSE (test code = 84 mg/dL 70-110 0761885232) CREATININE (test code 0.58 mg/dL 0.60-1.25 L = 5022378315) TOTAL BILI (test code 2.4 mg/dL 0.1-1.1 H = 7615103569) CALCIUM (test code = 8.7 mg/dL 8.6-10.6 9928197048) T PROTEIN (test code 6.4 g/dL 6.3-8.2 = 8385317819) ALBUMIN (test code = 3.4 g/dL 3.5-5.0 L 4259207369) ALK PHOS (test code = 101 U/L 34-122 Slight 1571933349) hemolysis ALTv (test code = 31 U/L 5-50 1742-6) AST(SGOT) (test code 60 U/L 13-40 H Slight = 0248867293) hemolysis eGFR (test code = mL/min/1.73m2 7159588276) TIFFANY (test code = TIFFANY) Association of [...] tests). Lab Interpretation Abnormal (test code = 50108-1) [facility] HospitalLIPASE, [id number] 23:32:43 Test Item Value Reference Range Interpretation Comments LIPASE (test code = 7513328489) 155 U/L 0-220 Lab Interpretation (test code = Normal 34509-9) [facility] HospitalCBC WITH [id number] 23:10:57 Test Item Value Reference Range Interpretation Comments WBC (test code = See_Comment L [Automated 7390-2) message] The sy stem which generated this result transmitted reference range : 4.20 - 10.70 10*3/?L. The reference range was not used to interpret this result as normal/abnormal . RBC (test code = See_Comment [Automated 649-8) message] The sy stem which generated this [...] RDW-SD (test code = 50.9 fL 38.5-51.6 07549-6) RDW-CV (test code = 14.6 % 12.1-15.4 788-0) PLT (test code = See_Comment L [Automated 777-3) message] The sy stem which generated this result transmitted reference range : 150 - 328 10*3/ ?L. The reference r laura was not used to interpret this result as normal/abnormal . MPV (test code = 9.5 fL 9.8-13.0 L 55133-0) IPF % (test code = 1.3 % 1.2-10.7 Platelet count 6257526549) measured by fluorescence method. NRBC/100 WBC (test See_Comment [Automat ed code = 1272138474) message] The system which generated this result transmitted reference range : 0.0 - 10.0 /100 WBCs. The refer ence range was not u sed to interpret th is result as normal/abnormal . NRBC x10^3 (test code <0.01 See_Comment [Auto mated = 3079707240) message] The s ystem which generated this result transmitted reference range : 10*3/?L. The reference range was not used to interpret this result as normal/abnormal . GRAN MAT (NEUT) % 55.2 % (test code = 770-8) IMM GRAN % (test code 1.00 % = 1544810436) LYMPH % (test code = 25.7 % 736-9) MONO % (test code = 14.7 % 5905-5) EOS % (test code = 2.9 % 713-8) BASO % (test code = 0.5 % 706-2) GRAN MAT x10^3(ANC) 2.30 10*3/uL 1.99-6.95 (test code = 5006258969) IMM GRAN x10^3 (test 0.04 10*3/uL 0.00-0.06 code = 4977381885) LYMPH x10^3 (test code 1.07 10*3/uL 1.09-3.23 L = 731-0) MONO x10^3 (test code 0.61 10*3/uL 0.36-1.02 = 742-7) EOS x10^3 (test code = 0.12 10*3/uL 0.06-0.53 711-2) BASO x10^3 (test code <0.03 0.01-0.09 = 704-7) Lab Interpretation Abnormal (test code = 53463-9) [facility] HospitalLIPID PANEL (29581)(TOTAL CHOLESTEROL, TRIGLYCERIDES, HDL)2021-11-05 17:05:42 Test Item Value Reference Range Interpretation Comments CHOL (test code = 186 mg/dL 120-200 8101761659) HDL (test code = 45 mg/dL >40 2846020144) HDLC RATIO (test code = See_Comment [Au tomated message] 6243448677) The system [employer] generated this result transmit michael reference range : <=5.0. The refe rence range was not u sed to interpret th is result as normal/abnormal . TRIG (test code = 64 mg/dL 30-170 2296241621) LDL CHOL (test code = 128 mg/dL See_Comment [Auto mated message] 67101-3) The system [employer] generated this result transmit michael reference range : <=160. The refe rence range was not u sed to interpret th is result as normal/abnormal . VLDL (test code = 13 mg/dL 5-60 6802185673) Lab Interpretation (test Normal code = 94397-7) [facility]. METABOLIC PANEL (83660)2021-11-05 17:05:21 Test Item Value Reference Range Interpretation Comments NA (test code = 138 mmol/L 135-145 5129061292) K (test code = 4.6 mmol/L 3.5-5.0 3120510656) CL (test code = 104 mmol/L 98-108 4023469139) CO2 TOTAL (test code = 30 mmol/L 23-31 5289475376) AGAP (test code = 2-16 9795957905) BUN (test code = 20 mg/dL 7-23 3205028284) GLUCOSE (test code = 102 mg/dL 70-110 2587828116) CREATININE (test code = 0.63 mg/dL 0.60-1.25 7378168223) TOTAL BILI (test code = 1.2 mg/dL 0.1-1.1 H 6677608948) CALCIUM (test code = 9.0 mg/dL 8.6-10.6 4265003519) T PROTEIN (test code = 6.6 g/dL 6.3-8.2 7130766884) ALBUMIN (test code = 3.2 g/dL 3.5-5.0 L 9078159094) ALK PHOS (test code = 75 U/L 34-122 4811111061) ALTv (test code = 35 U/L 5-50 1742-6) AST(SGOT) (test code = 39 U/L 13-40 3872383857) eGFR (test code = mL/min/1.73m2 1206673630) TIFFANY (test code = TIFFANY) Association of [...] tests). Lab Interpretation Abnormal (test code = 78385-9) [facility]MAG[facility]UM2022-04-07 17:05:21 Test Item Value Reference Range Interpretation Comments MAGNESIUM (test code = 9644545739) 1.9 mg/dL 1.7-2.4 Lab Interpretation (test code = Normal 88035-9) [facility] HospitalTHYROID STIMULATING [id number] 12:35:38 Test Item Value Reference Range Interpretation Comments TSH (test code = See_Comment [Automated message] 9140487901) The system [employer] generated this result transmitted ref erence range: 0.45 - 4 .70 mIU/L. The refe rence range was not u sed to interpret this result as normal/abnor mal. Lab Interpretation (test Normal code = 08681-4) [facility] HospitalFREE [id number] 12:22:17 Test Item Value Reference Range Interpretation Comments FREE T4 (test code = See_Comment [Autom ated message] 6298164193) The system [employer] generated this result transmitted ref erence range: 0.78 - 2 .20 ng/dL:. The ref erence range was not u sed to interpret this result as normal/abnor mal. Lab Interpretation (test Normal code = 48843-8) [facility] HospitalTROPONIN [id number] 12:16:59 Test Item Value Reference Interpretation Comments Range TROPONIN I (test 0.026 ng/mL See_Comment [Automated code = 5745258580) message] The system which generated this result [...] biotin. Lab Interpretation Normal (test code = 00154-6) [facility] HospitalN-TERMINAL [id number] 12:13:58 Test Item Value Reference Range Interpretation Comments NT-proBNP (test code 228 pg/mL See_Comment H [Autom ated = 1555944202) message] The system which generated this result transmitted reference range : <=125. The reference range was not used to interpret this result as normal/abnormal . TIFFANY (test code = TIFFANY) Biotin has been reported to cause a negative bias, interpret results relative to patient's use of biotin. Lab Interpretation Abnormal (test code = 30286-1) [facility] HospitalTransthoracic echo (TTE)2021-11-05 00:59:55 Test Item Value Reference Range Interpretation Comments LVIDD (test code = 4.50 cm 9510041504) IVS (test code = 1.10 cm 0139584320) Interventricular Septum 1.10 cm Diastolic Thickness by 2D (test code = 3179787) LVPWD (test code = 1.24 cm 0128132061) PW (test code = 1.24 cm 0.6-1.9 2093794185) LVOT diameter (test code 1.92 cm = 8626275616) ACS (test code = 1.82 cm 5206943191) Ao root annulus (test 3.5 cm code = 2959693230) Ao root diam (test code 3.50 cm = 7344861383) Aortic root (test code = 3.5 cm 1989784300) LA size (test code = 4.6 cm 4779247997) E wave decelartion time 0.21 s (test code = 0964556623) MV Peak E Catherine (test code 64.9 cm/s = 7413285706) MV Peak A Catherine (test code 83.8 cm/s = 5112310410) E/A ratio (test code = ratio 4947031808) MV Prop V (test code = 65.80 cm/s 8021414447) Tapse (test code = 1.92 cm 0698440712) LVOT stroke volume (test 67.60 cm3 code = 8170703585) LVOT peak catherine (test code 110.2 cm/s = 0776080101) LVOT mn grad (test code mmHg = 5982133460) AV LVOT peak gradient mmHg (test code = 0103761221) LVOT peak VTI (test code 23.3 cm = 5915060551) LV V1 mean (test code = 62.80 cm/s 4815677128) Aortic valve mean 129.2 cm/s velocity (test code = 0807250145) Ao peak catherine (test code = 230.1 cm/s 0158300198) Ao VTI (test code = 39.0 cm 8069941561) AV area by cont VTI 1.7 cm2 (test code = 9978990818) AV area peak catherine (test 1.4 cm2 code = 0403064443) Ao max PG (test code = 21.20 mm[Hg] 7337892349) AV peak gradient (test mmHg code = 8460428369) AV valve area (test code 1.73 cm2 = 6829748480) AV mean gradient (test mmHg code = 5703879181) TR Peak Catherine (test code = 233.7 cm/s 5340169844) Triscuspid Valve mmHg Regurgitation Peak Gradient (test code = 4835405153) EF(Teich) (test code = 60.40 % 2368946959) LVIDS (test code = 3.10 cm 1673820652) FS (test code = 32 % 1527955957) EF - 2D (test code = 60.40 % 82065959) Radiology Study observation (narrative) (test code = 91576-6) TIFFANY (test code = TIFFANY) ?Left?Ventricle: Left [...] (99.8 kg) 2.23 sq meters 130/[address] [facility]SCOTT [id number] 00:28:36 Test Item Value Reference Interpretation Comments Range TROPONIN I (test 0.015 ng/mL See_Comment [Automated code = 3811507527) message] The system which generated this result [...] biotin. Lab Interpretation Normal (test code = 92674-0) [facility] HospitalVITAMIN D, [id number] 17:50:34 Test Item Value Reference Range Interpretation Comments VIT D 25OH (test code = 19 ng/mL 25-80 L 41878-1) TIFFANY (test code = TIFFANY) Deficiency: <20 ng/mLInsufficiency: 20-24 ng/mLOptimal: 25-80 ng/mL Lab Interpretation (test Abnormal code = 46787-3) [facility] HospitalPROCALCITONIN2022-04-06 16:54:29 Test Item Value Reference Range Interpretation Comments Procalcitonin (test 0.03 ng/mL <0.07 code = 4595640726) TIFFANY (test code = TIFFANY) INTERPRETATION OF [...] lung abscess/empyema. For further information please refer to:[email or web address] Lab Interpretation Normal (test code = 00490-8) [facility] HospitalVITAMIN B12, [id number] 16:39:51 Test Item Value Reference Range Interpretation Comments VIT B12 (test code = 636 pg/mL 240-930 7664250006) TIFFANY (test code = TIFFANY) Biotin has been reported to cause a positive bias, interpret results relative to patient's use of biotin. Lab Interpretation (test Normal code = 11024-1) [facility] HospitalLIPID PANEL (66503)(TOTAL CHOLESTEROL, TRIGLYCERIDES, HDL)2021-11-04 15:21:56 Test Item Value Reference Range Interpretation Comments CHOL (test code = 183 mg/dL 120-200 4989102434) HDL (test code = 40 mg/dL >40 L 6028024421) HDLC RATIO (test code = See_Comment [Au tomated message] 6999074856) The system [employer] generated this result transmit michael reference range : <=5.0. The refe rence range was not u sed to interpret th is result as normal/abnormal . TRIG (test code = 57 mg/dL 30-170 3495356872) LDL CHOL (test code = 132 mg/dL See_Comment [Auto mated message] 36057-4) The system [employer] generated this result transmit michael reference range : <=160. The refe rence range was not u sed to interpret th is result as normal/abnormal . VLDL (test code = 11 mg/dL 5-60 1505695766) Lab Interpretation (test Abnormal code = 53289-8) [facility]MAG[facility]UM2022-04-06 15:21:56 Test Item Value Reference Range Interpretation Comments MAGNESIUM (test code = 3741500851) 1.6 mg/dL 1.7-2.4 L Lab Interpretation (test code = Abnormal 36728-2) [facility] HospitalPHOSPHORUS2022-04-06 15:21:36 Test Item Value Reference Range Interpretation Comments PHOSPHORUS (test code = 3346083948) 3.1 mg/dL 2.5-5.0 Lab Interpretation (test code = Normal 12020-4) [facility] HospitalURIC [id number] 15:21:16 Test Item Value Reference Range Interpretation Comments URIC ACID (test code = 4910573375) 4.4 mg/dL 3.6-8.0 Lab Interpretation (test code = Normal 17544-4) [facility] HospitalTROPONIN [id number] 13:34:13 Test Item Value Reference Interpretation Comments Range TROPONIN I (test 0.038 ng/mL See_Comment H [Automated code = 1132011965) message] The system which generated this result [...] biotin. Lab Interpretation Abnormal (test code = 74428-3) [facility] HospitalSEDIMENTATION [id number] 11:19:15 Test Item Value Reference Range Interpretation Comments ESR (test code = See_Comment [Automated message] 3882663195) The system [employer] generated this result transmitted ref erence range: 0 - 10 m m/HR. The reference r laura was not used to interpret this result as normal/abnor mal. Lab Interpretation (test Normal code = 34953-2) [facility] HospitalTROPONIN [id number] 10:43:39 Test Item Value Reference Interpretation Comments Range TROPONIN I (test 0.037 ng/mL See_Comment H Hemolyzed code = 6643736634) specimen [Automated message] The system which generated [...] biotin. Lab Interpretation Abnormal (test code = 31235-0) [facility] HospitalGLYCOSYLATED HEMOGLOBIN (A1C)2021-11-04 09:01:59 Test Item Value Reference Range Interpretation Comments HGB A1C (test code = 6.0 % 4.0-5.7 H 4548-4) TIFFANY (test code = TIFFANY) Reference RangesNormal: <5.7%Prediabetes: 5.7 - 6.4%Diabetes: > 6.5% Lab Interpretation (test Abnormal code = 28572-7) [facility]TR[facility]IN [id number] 03:17:54 Test Item Value Reference Interpretation Comments Range TROPONIN I (test 0.035 ng/mL See_Comment H [Automated code = 8684352181) message] The system which generated this result [...] biotin. Lab Interpretation Abnormal (test code = 92306-5) [facility] METABOLIC PANEL (59737)2021-11-04 03:06:14 Test Item Value Reference Range Interpretation Comments NA (test code = 136 mmol/L 135-145 8091276648) K (test code = 4.4 mmol/L 3.5-5.0 8937342365) CL (test code = 99 mmol/L 98-108 0020664490) CO2 TOTAL (test code = 29 mmol/L 23-31 5259612348) AGAP (test code = 2-16 0995315019) BUN (test code = 22 mg/dL 7-23 9047640331) GLUCOSE (test code = 164 mg/dL 70-110 H 6469483275) CREATININE (test code = 0.72 mg/dL 0.60-1.25 7550278654) TOTAL BILI (test code = 1.8 mg/dL 0.1-1.1 H 8442959534) CALCIUM (test code = 9.3 mg/dL 8.6-10.6 2086514761) T PROTEIN (test code = 7.5 g/dL 6.3-8.2 6211637470) ALBUMIN (test code = 3.7 g/dL 3.5-5.0 3285313140) ALK PHOS (test code = 98 U/L 34-122 5236525132) ALTv (test code = 35 U/L 5-50 1742-6) AST(SGOT) (test code = 48 U/L 13-40 H 6914175668) eGFR (test code = mL/min/1.73m2 1601361517) TIFFANY (test code = TIFFANY) Association of [...] tests). Lab Interpretation Abnormal (test code = 45725-9) [facility] HospitalLIPASE, [id number] 03:05:54 Test Item Value Reference Range Interpretation Comments LIPASE (test code = 5317608958) 253 U/L 0-220 H Lab Interpretation (test code = Abnormal 43037-5) [facility] HospitalaPTT2022-04-06 03:03:13 Test Item Value Reference Range Interpretation Comments APTT Patient (test See_Comment [Automat ed code = 3173-2) message] The system which generated this result transmitted reference range : 23 - 38 Seconds . The reference range was not used to interpr et this result as normal/abnormal . TIFFANY (test code = TIFFANY) [facility] patient population mean normal value for aPTT is 30 seconds. Lab Interpretation Normal (test code = 06644-8) [facility] HospitalPROTHROMBIN TIME / [id number] 03:01:34 Test Item Value Reference Range Interpretation [...] tions. Lab Interpretation (test Abnormal code = 31913-5) [facility] HospitalCB WITH [id number] 02:55:12 Test Item Value Reference Range Interpretation Comments WBC (test code = See_Comment [Automated 9690-2) message] The sy stem which generated this result transmitted reference range : 4.20 - 10.70 10*3/?L. The reference range was not used to interpret this result as normal/abnormal . RBC (test code = See_Comment H [Automated 889-8) message] The sy stem which generated this [...] RDW-SD (test code = 50.4 fL 38.5-51.6 69445-5) RDW-CV (test code = 14.8 % 12.1-15.4 788-0) PLT (test code = See_Comment L [Automated 777-3) message] The sy stem which generated this result transmitted reference range : 150 - 328 10*3/ ?L. The reference r laura was not used to interpret this result as normal/abnormal . MPV (test code = 10.3 fL 9.8-13.0 58252-1) NRBC/100 WBC (test See_Comment [Automat ed code = [id number]) message] The system which generated this result transmitted reference range : 0.0 - 10.0 /100 WBCs. The refer ence range was not u sed to interpret th is result as normal/abnormal . NRBC x10^3 (test code <0.01 See_Comment [Auto mated = [id number]) message] The s ystem which generated this result transmitted reference range : 10*3/?L. The reference range was not used to interpret this result as normal/abnormal . GRAN MAT (NEUT) % 72.3 % (test code = 770-8) IMM GRAN % (test code 1.70 % = 4141056156) LYMPH % (test code = 16.5 % 736-9) MONO % (test code = 8.2 % 5905-5) EOS % (test code = 1.0 % 713-8) BASO % (test code = 0.3 % 706-2) GRAN MAT x10^3(ANC) 7.35 10*3/uL 1.99-6.95 H (test code = 9485480687) IMM GRAN x10^3 (test 0.17 10*3/uL 0.00-0.06 H code = 1051045819) LYMPH x10^3 (test code 1.67 10*3/uL 1.09-3.23 = 731-0) MONO x10^3 (test code 0.83 10*3/uL 0.36-1.02 = 742-7) EOS x10^3 (test code = 0.10 10*3/uL 0.06-0.53 711-2) BASO x10^3 (test code 0.03 10*3/uL 0.01-0.09 = 704-7) Lab Interpretation Abnormal (test code = 90861-6) [facility]:00:00 Test Item Value Reference [...] NOTE: (test code = 998) (NOTE) HEMOGLOBIN [id number] 00:00:00 Test Item Value Reference Range Interpretation Comments HEMOGLOBIN A1c (test code = 98016) 5.4 % HEMOGLOBIN [id number] 00:00:00 Test Item Value Reference Range Interpretation Comments HEMOGLOBIN A1c (test code = 34740) 5.4 % HEMOGLOBIN [id number] 00:00:00 Test Item Value Reference Range Interpretation Comments HEMOGLOBIN A1c (test code = 18596) 5.4 % CBC W/AUTO [id number] 00:00:00 Test Item Value Reference Range Interpretation [...] code = 1015) 135 K/UL CBC W/AUTO [id number] 00:00:00 Test Item Value Reference Range Interpretation [...] code = 1015) 135 K/UL CBC W/AUTO [id number] 00:00:00 Test Item Value Reference Range Interpretation [...] code = 1015) 135 K/UL COMPREHENSIVE METABOLIC [id number] 00:00:00 Test Item Value Reference Range Interpretation Comments GLUCOSE (test code = 2217) 120 MG/DL BUN (test code = 2208) 22 MG/DL CREATININE (test code = 2214) 0.81 MG/DL eGFR AMER. (test code 113 ML/MIN/1.73 = 01380) eGFR NON- AMER. (test 97 ML/MIN/1.73 code = 32257) CALC BUN/CREAT (test code = 27 RATIO 2235) SODIUM (test code = 2231) 138 MEQ/L POTASSIUM (test code = 2228) 4.5 MEQ/L CHLORIDE (test code = 2215) 99 MEQ/L CARBON DIOXIDE (test code = 26 MEQ/L 2206) CALCIUM (test code = 2209) 9.5 MG/DL PROTEIN, TOTAL (test code = 8.2 G/DL 222) ALBUMIN (test code = 2201) 4.2 G/DL CALC GLOBULIN (test code = 4.0 G/DL 2240) CALC A/G RATIO (test code = 1.1 RATIO 2234) BILIRUBIN, TOTAL (test code = 0.5 MG/DL 2206) ALKALINE PHOSPHATASE (test 74 U/L code = 2204) AST (test code = 2218) 53 U/L ALT (test code = 2219) 47 U/L COMPREHENSIVE METABOLIC [id number] 00:00:00 Test Item Value Reference Range Interpretation Comments GLUCOSE (test code = 2217) 120 MG/DL BUN (test code = 2208) 22 MG/DL CREATININE (test code = 2214) 0.81 MG/DL eGFR AMER. (test code 113 ML/MIN/1.73 = 03143) eGFR NON- AMER. (test 97 ML/MIN/1.73 code = 95455) CALC BUN/CREAT (test code = 27 RATIO 2235) SODIUM (test code = 2231) 138 MEQ/L POTASSIUM (test code = 2228) 4.5 MEQ/L CHLORIDE (test code = 2215) 99 MEQ/L CARBON DIOXIDE (test code = 26 MEQ/L 2205) CALCIUM (test code = 2209) 9.5 MG/DL PROTEIN, TOTAL (test code = 8.2 G/DL 2228) ALBUMIN (test code = 2201) 4.2 G/DL CALC GLOBULIN (test code = 4.0 G/DL 2239) CALC A/G RATIO (test code = 1.1 RATIO 4) BILIRUBIN, TOTAL (test code = 0.5 MG/DL 2206) ALKALINE PHOSPHATASE (test 74 U/L code = 2204) AST (test code = 2218) 53 U/L ALT (test code = 2219) 47 U/L LIPID [id number] 00:00:00 Test Item Value Reference Range Interpretation Comments CHOLESTEROL (test code = 2210) 176 MG/DL TRIGLYCERIDES (test code = 2232) 55 MG/DL HDL CHOLESTEROL (test code = 2220) 73 MG/DL CALC LDL CHOL (test code = 2237) 92 MG/DL RISK RATIO LDL/HDL (test code = 1.26 RATIO 2238) LIPID [id number] 00:00:00 Test Item Value Reference Range Interpretation Comments CHOLESTEROL (test code = 2210) 176 MG/DL TRIGLYCERIDES (test code = 2232) 55 MG/DL HDL CHOLESTEROL (test code = 2220) 73 MG/DL CALC LDL CHOL (test code = 2237) 92 MG/DL RISK RATIO LDL/HDL (test code = 1.26 RATIO 2238) HEMOGLOBIN [id number] 00:00:00 Test Item Value Reference Range Interpretation Comments HEMOGLOBIN A1c (test code = 38695) 5.4 % HEMOGLOBIN [id number] 00:00:00 Test Item Value Reference Range Interpretation Comments HEMOGLOBIN A1c (test code = 33846) 5.4 % HEMOGLOBIN [id number] 00:00:00 Test Item Value Reference Range Interpretation Comments HEMOGLOBIN A1c (test code = 80069) 5.4 % CBC W/AUTO [id number] 00:00:00 Test Item Value Reference Range Interpretation [...] code = 1015) 135 K/UL CBC W/AUTO [id number] 00:00:00 Test Item Value Reference Range Interpretation [...] code = 1015) 135 K/UL CBC W/AUTO [id number] 00:00:00 Test Item Value Reference Range Interpretation [...] code = 1015) 135 K/UL COMPREHENSIVE METABOLIC [id number] 00:00:00 Test Item Value Reference Range Interpretation Comments GLUCOSE (test code = 2217) 120 MG/DL BUN (test code = 2208) 22 MG/DL CREATININE (test code = 2214) 0.81 MG/DL eGFR AMER. (test code 113 ML/MIN/1.73 = 74693) eGFR NON- AMER. (test 97 ML/MIN/1.73 code = 79530) CALC BUN/CREAT (test code = 27 RATIO 2235) SODIUM (test code = 2231) 138 MEQ/L POTASSIUM (test code = 2228) 4.5 MEQ/L CHLORIDE (test code = 2215) 99 MEQ/L CARBON DIOXIDE (test code = 26 MEQ/L 2205) CALCIUM (test code = 2209) 9.5 MG/DL PROTEIN, TOTAL (test code = 8.2 G/DL 2228) ALBUMIN (test code = 2201) 4.2 G/DL CALC GLOBULIN (test code = 4.0 G/DL 2240) CALC A/G RATIO (test code = 1.1 RATIO 4) BILIRUBIN, TOTAL (test code = 0.5 MG/DL 2206) ALKALINE PHOSPHATASE (test 74 U/L code = 2204) AST (test code = 2218) 53 U/L ALT (test code = 2219) 47 U/L COMPREHENSIVE METABOLIC [id number] 00:00:00 Test Item Value Reference Range Interpretation Comments GLUCOSE (test code = 2217) 120 MG/DL BUN (test code = 2208) 22 MG/DL CREATININE (test code = 2214) 0.81 MG/DL eGFR AMER. (test code 113 ML/MIN/1.73 = 56550) eGFR NON- AMER. (test 97 ML/MIN/1.73 code = 76303) CALC BUN/CREAT (test code = 27 RATIO 2235) SODIUM (test code = 2231) 138 MEQ/L POTASSIUM (test code = 2228) 4.5 MEQ/L CHLORIDE (test code = 2215) 99 MEQ/L CARBON DIOXIDE (test code = 26 MEQ/L 2205) CALCIUM (test code = 2209) 9.5 MG/DL [...] (test code = 2219) 47 U/L LIPID [id number] 00:00:00 Test Item Value Reference Range Interpretation Comments CHOLESTEROL (test code = 2210) 176 MG/DL TRIGLYCERIDES (test code = 2232) 55 MG/DL HDL CHOLESTEROL (test code = 2220) 73 MG/DL CALC LDL CHOL (test code = 2237) 92 MG/DL RISK RATIO LDL/HDL (test code = 1.26 RATIO 2238) LIPID [id number] 00:00:00 Test Item Value Reference Range Interpretation Comments CHOLESTEROL (test code = 2210) 176 MG/DL TRIGLYCERIDES (test code = 2232) 55 MG/DL HDL CHOLESTEROL (test code = 2220) 73 MG/DL CALC LDL CHOL (test code = 2237) 92 MG/DL RISK RATIO LDL/HDL (test code = 1.26 RATIO 2238) HEMOGLOBIN [id number] 00:00:00 Test Item Value Reference Range Interpretation Comments HEMOGLOBIN A1c (test code = 85261) 5.4 % HEMOGLOBIN [id number] 00:00:00 Test Item Value Reference Range Interpretation Comments HEMOGLOBIN A1c (test code = 56862) 5.4 % CBC W/AUTO [id number] 00:00:00 Test Item Value Reference Range Interpretation [...] code = 1015) 135 K/UL CBC W/AUTO [id number] 00:00:00 Test Item Value Reference Range Interpretation [...] code = 1015) 135 K/UL COMPREHENSIVE METABOLIC [id number] 00:00:00 Test Item Value Reference Range Interpretation Comments GLUCOSE (test code = 2217) 120 MG/DL BUN (test code = 2208) 22 MG/DL CREATININE (test code = 2214) 0.81 MG/DL eGFR AMER. (test code 113 ML/MIN/1.73 = 32204) eGFR NON- AMER. (test 97 ML/MIN/1.73 code = 02525) CALC BUN/CREAT (test code = 27 RATIO 2235) SODIUM (test code = 2231) 138 MEQ/L POTASSIUM (test code = 2228) 4.5 MEQ/L CHLORIDE (test code = 2215) 99 MEQ/L CARBON DIOXIDE (test code = 26 MEQ/L 2205) CALCIUM (test code = 2209) 9.5 MG/DL [...] (test code = 2219) 47 U/L LIPID [id number] 00:00:00 Test Item Value Reference Range Interpretation Comments CHOLESTEROL (test code = 2210) 176 MG/DL TRIGLYCERIDES (test code = 2232) 55 MG/DL HDL CHOLESTEROL (test code = 2220) 73 MG/DL CALC LDL CHOL (test code = 2237) 92 MG/DL RISK RATIO LDL/HDL (test code = 1.26 RATIO 2238) URIC [id number] 00:00:00 Test Item Value Reference Range Interpretation Comments URIC ACID (test code = 2233) 4.6 MG/DL URIC [id number] 00:00:00 Test Item Value Reference Range Interpretation Comments URIC ACID (test code = 2233) 4.6 MG/DL URIC [id number] 00:00:00 Test Item Value Reference Range Interpretation Comments URIC ACID (test code = 2233) 4.6 MG/DL URIC [id number] 00:00:00 Test Item Value Reference Range Interpretation Comments URIC ACID (test code = 2233) 4.6 MG/DL URIC [id number] 00:00:00 Test Item Value Reference Range Interpretation Comments URIC ACID (test code = 2233) 4.6 MG/DL
[2022-08-25] MEDS ORDERED: ONDANSETRON 4 MG/2 ML VIAL ONE (21:08)
[2022-08-25 21:32] LABS: Absolute Lymphocytes (CBC) 0.5 K/uL (0.7-4.9); Hematocrit 44.9 % (39.6-49.0); Lymphocytes % 5.9 % (15.3-44.8); MCV 94.7 fL (80-100); MPV 7.5 fL (7.6-11.3); RBC Red Blood Cell Count 4.74 M/uL (4.33-5.43)
[2022-08-25 21:58] LABS: Albumin 3.1 g/dL (3.4-5.0); Bilirubin Total 1.1 mg/dL (0.2-1.0); Potassium 4.4 mmol/L (3.5-5.1); Protein, Total 7.6 g/dL (6.4-8.2)
--- NOTE | 2022-08-25 22:14 | RAD REPORT ---
EXAM DESCRIPTION: CT - Abdomen Pelvis Wo Contrast - 08/25/2022 10:01 pm CLINICAL HISTORY: Abdominal pain. abd pain COMPARISON: Abdomen Pelvis W Contrast dated 06/17/2022; Mri Abdomen W/Wo Cont dated 02/16/2022 TECHNIQUE: CT imaging of the abdomen and pelvis was performed without contrast. Solid organ, bowel a nd vascular assessment is limited due to lack of IV and oral contrast. All CT scans are performed using dose optimization technique as appropriate and may include automated exposure control or mA/KV adjustment according to patient size. FINDINGS: Mild linear atelectasis is seen in both lung bases. Liver cirrhosis is noted.Several low-density liver masses are present, largest lateral right lobe howard suring 5.3 cm. Spleen is mildly prominent size. There are numerous collateral vessels in the left upper quadrant. Th e pancreas, adrenal glands kidneys show no acute process. No hydronephrosis. 4 mm calculus is present inferior pole left kidney. No bowel obstruction, free air, free fluid or abscess. The appendix is normal. The osseous structures are within normal limits. IMPRESSION: No acute intra-abdominal or pelvic findings. Advanced liver cirrhosis pattern with several masses present the right lobe, presumably neoplastic. F ull evaluation is limited by lack of IV contrast. A limited non-contrast examination was performed as detailed.
[2022-08-25] MEDS ORDERED: METHYLPREDNISOLONE 125 MG INJ ONE (23:24)
[2022-08-25] MEDS ORDERED: IPRATROPIUM BROM 0.5MG/2.5ML ONE (23:25)
[2022-08-25] MEDS ORDERED: ALBUTEROL 2.5 MG/3 ML NEB SOL ONE (23:25)
[2022-08-25] MEDS ORDERED: KETOROLAC 30 MG/ML INJ ONE (23:34)
--- NOTE | 2022-08-25 23:59 | ER ---
Nurse's Notes [facility] Name: Joseph Quach Age: 62 yrs Sex: Male : 1960 Arrival Date: 08/25/2022 Time: 20:00 Bed 13 Private MD: Diagnosis: Nausea with vomiting, unspecified;Diarrhea, unspecified;COPD/ Chronic obstructive pulmonary disease with (acute) exacerbation Presentation: 08/25 20:38 Chief complaint: Patient states: I am very sick. I had a procedure done today and i had kd3 some contrast for a bone scan and I've felt bad ever since. I have been puking for hours and having diarrhea. Coronavirus screen: Vaccine status: Patient reports being unvaccinated. Ebola Screen: No symptoms or risks identified at this time. Risk Assessment: Do you want to hurt yourself or someone else? Patient reports no desire to harm self or others. 20:38 Method Of Arrival: Wheelchair kd3 20:38 Acuity: AISLINN 3 kd3 22:27 Initial Sepsis Screen: Does the patient meet any 2 criteria? No. Patient's initial ha1 sepsis screen is negative. Does the patient have a suspected source of infection? No. Patient's initial sepsis screen is negative. Onset of symptoms was August 25, 2022. Triage Assessment: 20:44 General: Appears uncomfortable, Behavior is calm, cooperative. Pain: Complains of pain kd3 in abdomen. GI: Reports diarrhea, vomiting. Historical: - Allergies: 20:44 Fish Containing Products; kd3 - PMHx: 20:44 angina pectoris; COPD; High Cholesterol; Myocardial infarction; Hypertensive disorder; kd3 cirrhosis of liver; - Immunization history:: Adult Immunizations up to date. - Social history:: Smoking status: unknown. Screenin:44 [facility] ED Fall Risk Assessment (Adult) History of falling in the last 3 months, ha1 including since admission No falls in past 3 months (0 pts) Confusion or Disorientation No (0 pts) Intoxicated or Sedated No (0 pts) Impaired Gait Yes (1 pt) Mobility Assist Device Used Yes (1 pt) Altered Elimination No (0 pt) Score/Fall Risk Level 0 - 2 = Low Risk Oriented to surroundings, Maintained a safe environment, Educated pt \T\ family on fall prevention, incl call for assistance when getting out of bed, Hourly rounding (assess needs \T\ fall precautionary measures) done, Used ambulatory aids as needed (educated on \T\ assisted with). 21:55 Abuse screen: Denies threats or abuse. Denies injuries from another. Nutritional ha1 screening: No deficits noted. Tuberculosis screening: No symptoms or risk factors identified. Assessment: 20:50 General: Appears uncomfortable, Behavior is cooperative. Pain: Complains of pain in ha1 abdomen Pain does not radiate. Pain currently is 8 out of 10 on a pain scale. Neuro: Level of Consciousness is awake, alert, obeys commands, Oriented to person, place, time, situation. Cardiovascular: Capillary refill < 3 seconds Patient's skin is warm and dry. Respiratory: Airway is patent Respiratory effort is even, unlabored, Respiratory pattern is regular, symmetrical. GI: Abdomen is round non-distended, Bowel sounds present X 4 quads. Abd is soft and non tender. GI: Reports lower abdominal pain, cramping, diarrhea, vomiting. Musculoskeletal: Circulation, motion, and sensation intact. 21:50 Reassessment: Patient and/or family updated on plan of care and expected duration. Pain ha1 level reassessed. Patient is alert, oriented x 3, equal unlabored respirations, skin warm/dry/pink. 22:50 Reassessment: Patient and/or family updated on plan of care and expected duration. Pain ha1 level reassessed. Patient is alert, oriented x 3, equal unlabored respirations, skin warm/dry/pink. talking to son at bedside. 23:50 Reassessment: Patient and/or family updated on plan of care and expected duration. Pain ha1 level reassessed. Patient is alert, oriented x 3, equal unlabored respirations, skin warm/dry/pink. Patient states feeling better. Patient states symptoms have improved. Vital Signs: 20:43 BP 113 / 66; Pulse 108; Resp 24; Temp 99.2(TE); Pulse Ox 90% on 2 lpm NC; Weight 92.53 kd3 kg; Height 5 ft. 11 in. (180.34 cm); 21:50 BP 113 / 77; Pulse 60; Resp 19; Pulse Ox 96% on 3 lpm NC; ha1 23:17 BP 123 / 68; Pulse 104; Resp 20 S; Pulse Ox 96% on 6 lpm NC; ha1 23:50 BP 130 / 81; Pulse 103; Resp 20 S; Pulse Ox 98% on 3 lpm NC; ha1 20:43 Body Mass Index 28.45 (92.53 kg, 180.34 cm) kd3 ED Course: 20:00 Patient arrived in ED. mr 20:35 Elizabeth Leong, XIMENA [facility]. kb 20:35 Cortez Durham MD is Attending Physician. kb 20:39 Triage completed. kd3 20:44 Arm band placed on left wrist. kd3 20:44 Patient has correct armband on for positive identification. Placed in gown. Bed in low ha1 position. Call light in reach. Side rails up X 1. 20:48 Faye Meyer, JEZ is Primary Nurse. ha1 22:03 CT Abd/Pelvis - Without Contrast In Process Unspecified. EDMS 23:00 Chest Single View XRAY In Process Unspecified. EDMS 08/26 00:14 No provider procedures requiring assistance completed. IV discontinued, intact, ha1 bleeding controlled, No redness/swelling at site. Pressure dressing applied. Administered Medications: 08/25 21:13 Drug: Zofran (Ondansetron) 4 mg Route: IVP; Site: right forearm; ha1 08/26 00:17 Follow up: Response: No adverse reaction ha1 08/25 23:20 Drug: SOLU-Medrol (methylPrednisoLONE) 125 mg Route: IVP; Site: right forearm; ha1 08/26 00:17 Follow up: Response: No adverse reaction ha1 08/25 23:25 Drug: Albuterol 2.5 mg Route: Inhalation; ha1 08/26 00:16 Follow up: Response: No adverse reaction ha1 08/25 23:25 Drug: AtroVENT (ipratropium) Aerosol 0.5 mg Route: Inhalation; ha1 08/26 00:16 Follow up: Response: No adverse reaction ha1 08/25 23:38 Drug: Ketorolac 15 mg Route: IVP; Site: right forearm; ha1 23:58 Follow up: Response: No adverse reaction ha1 Medication: 08/26 00:15 VIS not applicable for this client. ha1 Outcome: 08/25 23:59 Discharge ordered by . kb 08/26 00:15 Discharged to home ambulatory, with family. ha1 Condition: stable Discharge instructions given to patient, family, Instructed on discharge instructions, follow up and referral plans. medication usage, Demonstrated understanding of instructions, follow-up care, medications, Prescriptions given X 3. 00:17 Patient left the ED. ha1 Signatures: Dispatcher [employer] EDPR Elizabeth Leong, NATIONAL STORMWATER LEADER-C NATIONAL STORMWATER LEADER-Marcos HaskinsaLinsey Diane Mcgraw, RN RN kd3 Faye Meyer RN RN ha1
--- NOTE | 2022-08-25 23:59 | EDPHYS ---
Physician Documentation [facility] Name: Joseph Quach Age: 62 yrs Sex: Male : 1960 Arrival Date: 08/25/2022 Time: 20:00 Bed 13 Private MD: ED Physician Cortez Durham HPI: 08/25 23:24 This 62 yrs old Male presents to ER via Wheelchair with complaints of Abdominal Pain, kb Vomiting/Diarrhea. 23:24 The patient presents with abdominal pain that is diffuse. Onset: The symptoms/episode kb began/occurred today. The symptoms do not radiate. Associated signs and symptoms: Pertinent positives: nausea, vomiting, and diarrhea. The symptoms are described as constant. Modifying factors: The symptoms are alleviated by nothing, the symptoms are aggravated by nothing. Severity of pain: At its worst the pain was moderate in the emergency department the pain is unchanged. The patient has not experienced similar symptoms in the past. The patient has not recently seen a physician. Pt reports n/v/d since having CT and MRI with contrast earlier today to evaluate spots on liver. Historical: - Allergies: 20:44 Fish Containing Products; kd3 - PMHx: 20:44 angina pectoris; COPD; High Cholesterol; Myocardial infarction; Hypertensive disorder; kd3 cirrhosis of liver; - Immunization history:: Adult Immunizations up to date. - Social history:: Smoking status: unknown. ROS: 23:23 Constitutional: Negative for fever, chills, and weight loss. kb 23:23 Respiratory: Positive for shortness of breath. 23:23 Abdomen/GI: Positive for abdominal pain, nausea, vomiting, and diarrhea, Negative for constipation, abdominal cramps, abdominal distension. 23:23 All other systems are negative. Exam: 23:22 Constitutional: This is a well developed, well nourished patient who is awake, alert, kb and in no acute distress. Head/Face: Normocephalic, atraumatic. ENT: Moist Mucous membranes Cardiovascular: Regular rate and rhythm with a normal S1 and S2. No gallops, murmurs, or rubs. No pulse deficits. Skin: Warm, dry with normal turgor. Normal color. MS/ Extremity: Pulses equal, no cyanosis. Neurovascular intact. Full, normal range of motion. Neuro: Awake and alert, GCS 15, oriented to person, place, time, and situation. Moves all extremities. Normal gait. 23:22 Respiratory: the patient does not display signs of respiratory distress, Respirations: labored breathing, is not present, Breath sounds: wheezing: expiratory that is mild, is heard diffusely. 23:22 Abdomen/GI: Inspection: abdomen appears normal, Bowel sounds: normal, Palpation: soft, in all quadrants, mild abdominal tenderness, in all quadrants. Vital Signs: 20:43 BP 113 / 66; Pulse 108; Resp 24; Temp 99.2(TE); Pulse Ox 90% on 2 lpm NC; Weight 92.53 kd3 kg; Height 5 ft. 11 in. (180.34 cm); 21:50 BP 113 / 77; Pulse 60; Resp 19; Pulse Ox 96% on 3 lpm NC; ha1 23:17 BP 123 / 68; Pulse 104; Resp 20 S; Pulse Ox 96% on 6 lpm NC; ha1 23:50 BP 130 / 81; Pulse 103; Resp 20 S; Pulse Ox 98% on 3 lpm NC; ha1 20:43 Body Mass Index 28.45 (92.53 kg, 180.34 cm) kd3 MDM: 20:45 Patient medically screened. kb 23:22 Differential diagnosis: bowel obstruction, diverticulitis, gastritis, non-specific abd kb pain. Data reviewed: vital signs, nurses notes. Consideration of Admission/Observation Escalation of care including admission/observation considered. 23:24 ED course: Pt reports he has had shortness of breath for a few days and it is worse kb now. Pt is on home O2 PRN. 23:58 Counseling: I had a detailed discussion with the patient and/or guardian regarding: the kb historical points, exam findings, and any diagnostic results supporting the discharge/admit diagnosis, lab results, radiology results, the need for outpatient follow up, a family practitioner, to return to the emergency department if symptoms worsen or persist or if there are any questions or concerns that arise at home. Response to treatment: the patient's symptoms have markedly improved after treatment. 08/25 20:45 Order name: CBC with Diff; Complete Time: 21:35 kb 08/25 20:45 Order name: CMP; Complete Time: 22:08 kb 08/25 20:45 Order name: Lipase; Complete Time: 22:08 kb 08/25 21:41 Order name: CT Abd/Pelvis - Without Contrast; Complete Time: 22:22 kb 08/25 22:33 Order name: Chest Single View XRAY 08/25 20:45 Order name: IV Saline Lock; Complete Time: 21:14 kb 08/25 20:45 Order name: Labs collected and sent; Complete Time: 21:14 kb 08/25 22:29 Order name: PO challenge; Complete Time: 00:01 kb Administered Medications: 21:13 Drug: Zofran (Ondansetron) 4 mg Route: IVP; Site: right forearm; 1 08/26 00:17 Follow up: Response: No adverse reaction [facility] 08/25 23:20 Drug: SOLU-Medrol (methylPrednisoLONE) 125 mg Route: IVP; Site: right forearm; 08/26 00:17 Follow up: Response: No adverse reaction 08/25 23:25 Drug: Albuterol 2.5 mg Route: Inhalation; 1 08/26 00:16 Follow up: Response: No adverse reaction [facility] 08/25 23:25 Drug: AtroVENT (ipratropium) Aerosol 0.5 mg Route: Inhalation; 1 08/26 00:16 Follow up: Response: No adverse reaction [facility] 08/25 23:38 Drug: Ketorolac 15 mg Route: IVP; Site: right forearm; 1 23:58 Follow up: Response: No adverse reaction 1 Disposition: 08/26 03:26 I reviewed the patient's care provided by the Advanced Practice Provider and agree with bs3 the diagnosis and treatment plan. Disposition Summary: 08/25/22 23:59 Discharge Ordered Location: Home kb Condition: Stable kb Diagnosis - Nausea with vomiting, unspecified kb - Diarrhea, unspecified kb - COPD/ Chronic obstructive pulmonary disease with (acute) exacerbation kb Followup: kb - With: Emergency Department - When: As needed - Reason: Worsening of condition Followup: kb - With: Private Physician - When: 2 - 3 days - Reason: Recheck today's complaints, Continuance of care, Re-evaluation by your physician Discharge Instructions: - Discharge Summary Sheet kb - Viral Gastroenteritis, Adult, Soax-[id number] kb - Chronic Obstructive Pulmonary Disease Exacerbation, [id number] kb Forms: - Medication Reconciliation Form kb - Thank You Letter kb - Antibiotic Education kb - Prescription Opioid Use kb Prescriptions: - Prednisone 20 mg Oral Tablet - take 1 tablet by ORAL route once daily for 5 days; 5 tablet; Refills: 0, kb Product Selection Permitted - dicyclomine 20 mg Oral Tablet - take 1 tablet by ORAL route 4 times per day As needed; 20 tablet; Refills: 0, kb Product Selection Permitted - ondansetron 4 mg Oral - take 1 tablet by SUBLINGUAL route every 8 hours As needed; 15 tablet; Refills: kb 0, Product Selection Permitted Signatures: Dispatcher [employer] Elizabeth Valdivia, SELENAC Diane Gutierrez, RN RN kd3 Faye Meyer RN RN ha1 Cortez Durham MD MD bs3
[2022-08-26 01:13] VITALS: TEMP 99.2
[2022-08-26 01:17] VITALS: BP 130/81; O2SAT 98
--- NOTE | 2022-08-26 12:42 | RAD REPORT ---
EXAM DESCRIPTION: Chest Single View CLINICAL HISTORY: 2 years Male, DYSPNEA COMPARISON: Chest radiograph dated 12/09/2021 IMPRESSION: Chronic lung changes. No focal consolidation. No pleural effusion. No pneumothorax. Cardiomediastinal silhouette is unchanged. No acute osseous abnormality. Electronically signed by: Rafael Hines DO 08/25/2022 11:12 PM SHOE REPAIRER Due to temporary technical issues with the PACS/Fluency reporting system, reports are being signed by the in house radiologists without review as a courtesy to insure prompt reporting. The interpreting radiologist is fully responsible for the content of the report.
== END 2022-08-26 00:17 | disposition home or self-care (01) ==
LOC: ER 19:58
DX: R11.2 Nausea with vomiting, unspecified (principal); R19.7 Diarrhea, unspecified; J44.1 Chronic obstructive pulmonary disease with (acute) exacerbation; I10 Essential (primary) hypertension; Z91.013 Allergy to seafood
CPT/HCPCS: 85025; 36415; 83690; 80053; 74176; 71045; 96375; 96374; 99284; J7613; J7644; J2930; J2405

== ENCOUNTER 2023-09-10 12:23 | Inpatient (IN) | payer OTHER ==
--- OUTSIDE RECORDS SUMMARY | 2023-09-10 12:34 | XMS REPORT | Continuity of Care Document ---
Author Name Unknown Address [address] [facility] [address] [place] [address] [facility] Address [address] [facility]. [address] [place] [address] Care Team Providers Care Dye Tub Tender Name Role Phone [facility] Primary Car e Physician Unavailable CHRISTOPHER MARISCAL Attending Clinician Unavailable Christopher Mariscal MD Attending Clinician [phone] ANA LI Attending Clinician Unavailable ANA LI Attending Clinician Unavailable RADIOLOGY Attending Clinician Unavailable Radiology Attending Clinician Unavailable KASIE PERSAUD Attending Clinician UnavailKasie Lloyd MD Attending Clinician [phone] Tavia Mariscal MD Attending Clinician [phone] Juan Guy MD Attending Clinician [phone] JUAN GUY Attending Clinician Unavailable Kelsie Valdez RN Attending Clinician Sally Montague Attending Clinician UnavailNaomie PAUL, Emily Attending Clinician [phone] Christine Black MD Attending Clinician [phone] Wily Araujo MD Attending Clinician [phone] WILY ARAUJO Attending Clinician UnaCHRISTINE Chris Attending Clinician Unavailable Viktoriya Perera Attending Clinician [phone] VIKTORIYA HERNÁNDEZ Attending Clinician Unavailable Pob, [facility] Attending Clinician Unavailpranav lowry [facility] Attending Clinician Unavailable HETAL PAT Attending Clinician Unavailable [facility] Attending Clinician Unavail able Hetal Carter Attending Clinician [phone] Doctor Unassigned, [place] Attending Clinician U navailable Lab, [facility] Attending Clinician Unavailable CORAZON SERRANO Attending Clinician Unavailable LEX MEHTA Attending Clinician Unavailable Brigida Ulloa MD Attending Clinician [phone] Boyd Claros MD Attending Clinician [phone] Lex Mehta MD Attending Clinician [phone] Sarahi Victor MD Attending Clinician [phone] Nickie Davidson RN Attending Clinician Unavailable ARNOL CAREY Attending Clinician Unavailable Sheba Bhagat Attending Clinician [phone] Nader Cross MD Attending Clinician [phone] Arnol Carey MD Attending Clinician [phone] ANA LI Admitting Clinician Unavailable SHELBY SCHMITT Admitting Clinician UnaKASIE Parker Admitting Clinician UnavailJUAN Azul Admitting Clinician Unavailable Christine Black MD Admitting Clinician [phone] CHRISTINE BLACK Admitting Clinician Unavailable SARAHI VICTOR Admitting Clinician Unavailable Sarahi Victor MD Admitting Clinician [phone] ARNOL CAREY Admitting Clinician Unavailable Arnol Carey MD Admitting Clinician [phone] Payers Payer Name Policy Type Policy Number Effective Date Expirati on Date Source Problems Condition Name Condition Details Condition Category Status Onset Date Resolution Date Last Treatment Date Treating Clinician Comments Source Thrombocyt openia Thrombocyt openia Disease Active 2021-08 00:00: 00 [facility] Gastric varices Gastric varices Disease Active 2021-08 2-08 00:00: 00 [facility] Hepatocell ular carcinoma Hepatocell ular carcinoma Disease Active 2021-08 0-20 00:00: 00 [facility] 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 hepatitis C virus infection with cirrhosis Disease Active 2021-08 0-20 00:00: 00 [facility] Volume overload Volume overload Disease Active 5-18 00:00: 00 [facility] COPD with acute exacerbati on COPD with acute exacerbati on Disease Active 4-07 00:00: 00 [facility] Obesity (BMI 30-39.9) Obesity (BMI 30-39.9) Disease Active 4-06 00:00: 00 [facility] COPD exacerbati on COPD exacerbati on Disease Active 4-06 00:00: 00 [facility] Troponin I above reference range Troponin I above reference range Disease Active 4-06 00:00: 00 [facility] Cigarette smoker Cigarette smoker Disease Active 4-06 00:00: 00 [facility] Chest pain Chest pain Disease Active 4-05 00:00: 00 [facility] Allergies, Adverse Reactions, Alerts Allergy Name Allergy Type Status Severity Reaction(s) Onset Date Inactive Date Treating Clinician Comments Source Seafood/ Fish Propensi ty to adverse reaction s Active Rash 2018-08 217 00:00: 00 [facility] SEAFOOD/ FISH Food Active Rash 2018-08 217 00:00: 00 [facility] Social History Social Habit Start Date Stop Date Quantity Comments Source [facility] Alcohol intake 2023-07-11 00:00:00 2023-07-11 00:00:00 Ex-drinker (finding) [facility] History of Social function 2023-07-11 00:00:00 2023-07-11 00:00:00 [facility] Tobacco use and exposure 2023-04-07 00:00:00 2023-04-07 00:00:00 Smokeless tobacco non-user [facility] Exposure to SARS-CoV-2 (event) 2022-10-08 00:00:00 2022-10-18 07:11:00 Not sure [facility] Education - What is the highest level of school you have completed or the highest degree you have received? 2021-11-04 00:00:00 2021-11-04 00:00:00 9th grade [facility] History of tobacco use 2017-05-29 00:00:00 Passive smoker [facility] Sex Assigned At 1960 00:00:00 1960 00:00:00 [facility] Smoking Status Start Date Stop Date Source Ex-smoker 2023-04-07 00:00:00 2023-04-07 [facility] Ordered Medication Name Filled Medication Name Start Date Stop Date Current Medication? Ordering Clinician Indication Dosage Frequency Signature (SIG) Comments Components Source iopamidol (ISOVUE 370-500 mL) injection 100 mL 2022-08 19:00: 00 07-18 18:04 :00 No [id number] 100mL 100 mL, Intravenou s, ONCE, 1 dose, On Tue07/18/23 at 1300, Routine [facility] carvediloL 3.125 mg tablet 2022-08 00:00: 00 Yes [id number] 3.125mg Take 1 tablet by mouth in the morning and 1 tablet in the evening. Take with meals. [facility] carvediloL 3.125 mg tablet 2022-08 00:00: 00 Yes [id number] 3.125mg Take 1 tablet by mouth in the morning and 1 tablet in the evening. Take with meals. [facility] carvediloL 3.125 mg tablet 2022-08 00:00: 00 Yes [id number] 3.125mg Take 1 tablet by mouth in the morning and 1 tablet in the evening. Take with meals. [facility] carvediloL 3.125 mg tablet 2022-08 00:00: 00 Yes [id number] 3.125mg Take 1 tablet by mouth in the morning and 1 tablet in the evening. Take with meals. [facility] carvediloL 3.125 mg tablet 2022-08 00:00: 00 Yes [id number] 3.125mg Take 1 tablet by mouth in the morning and 1 tablet in the evening. Take with meals. [facility] carvediloL 3.125 mg tablet 2022-08 00:00: 00 Yes [id number] 3.125mg Take 1 tablet by mouth in the morning and 1 tablet in the evening. Take with meals. [facility] NaCl 0.9% (NS) bolus infusion 1,000 mL 04-27 19:15: 00 04-27 21:07 :00 No 1000mL at 999 mL/hr, 1,000 mL, IV Infusion, ONCE, 1 dose, On Tue04/27/23 at 1415, LARRY [facility] heparin flush (PF) 2,000 units in 1000 mL NS RTU injection 04-22 15:08: 07 04-22 15:08 :07 No IV Push, PRN, Starting on Tue04/22/23 at 1008, Intra-op [facility] heparin flush (PF) 2,000 units in 1000 mL NS RTU injection 04-22 15:08: 07 04-22 15:08 :07 No IV Push, PRN, Starting on Tue04/22/23 at 1008, Intra-op [facility] lidocaine 1% (PF) (XYLOCAINE) injection 04-22 15:07: 23 04-22 15:07 :23 No PRN, Starting on Tue04/22/23 at 1007, Until Tue04/22/23 at 1007, Routine, Intra-op [facility] lidocaine 1% (PF) (XYLOCAINE) injection 04-22 15:07: 23 04-22 15:07 :23 No PRN, Starting on Tue04/22/23 at 1007, Until Tue04/22/23 at 1007, Routine, Intra-op [facility] iohexol (OMNIPAQUE 300-100 mL) injection 100 mL 04-22 14:45: 00 04-22 15:33 :00 No [id number] 100mL 100 mL, Injection, ONCE, 1 dose, On Tue04/22/23 at 0945, Routine [facility] iohexol (OMNIPAQUE 300-100 mL) injection 100 mL 04-22 14:45: 00 04-22 15:33 :00 No [id number] 100mL 100 mL, Injection, ONCE, 1 dose, On Tue04/22/23 at 0945, Routine [facility] yttrium Y-90 resin microsphere s injection 16.4 millicurie 04-22 14:30: 00 04-22 14:30 :00 No [id number] 16.4mCi 16.4 millicurie , Intravenou s, ONCE, 1 dose, On Tue04/22/23 at 0930, Routine [facility] tc 99m-albumin (DRAXIMAGE MAA) injection 3.1 millicurie 04-14 17:00: 00 04-14 17:00 :00 No [id number] 3.1mCi 3.1 millicurie , Intravenou s, ONCE, 1 dose, On Tue04/14/23 at 1200, Routine [facility] iopamidol (ISOVUE 300-100 mL) injection 100 mL 04-14 15:30: 00 04-14 16:43 :00 No [id number] 100mL 100 mL, Intravenou s, ONCE, 1 dose, On Tue04/14/23 at 1030, Routine [facility] iopamidol (ISOVUE 300-100 mL) injection 100 mL 04-14 15:30: 00 04-14 16:43 :00 No [id number] 100mL 100 mL, Intravenou s, ONCE, 1 dose, On Tue04/14/23 at 1030, Routine [facility] ceFAZolin (ANCEF) injection 04-14 14:38: 40 04-14 14:38 :40 No Slow IV Push, PRN, Starting on Maribell 04/14/23 at 0938, Until Discontinu ed, LARRY, Intra-op [facility] ceFAZolin (ANCEF) injection 04-14 14:38: 40 04-14 14:38 :40 No Slow IV Push, PRN, Starting on Maribell 04/14/23 at 0938, Until Discontinu ed, LARRY, Intra-op [facility] FENTanyl PF (SUBLIMAZE (PF)) injection 04-14 14:34: 29 04-14 15:52 :08 No Slow IV Push, PRN, Starting on Maribell 04/14/23 at 0934, Until Discontinu ed, Routine, Intra-op [facility] FENTanyl PF (SUBLIMAZE (PF)) injection 04-14 14:34: 29 04-14 15:52 :08 No Slow IV Push, PRN, Starting on Maribell 04/14/23 at 0934, Until Discontinu ed, Routine, Intra-op [facility] midazolam (VERSED) injection 04-14 14:34: 21 04-14 15:52 :03 No IV Push, PRN, Starting on Maribell 04/14/23 at 0934, Until Discontinu ed, Routine, Intra-op [facility] midazolam (VERSED) injection 04-14 14:34: 21 04-14 15:52 :03 No IV Push, PRN, Starting on Maribell 04/14/23 at 0934, Until Discontinu ed, Routine, Intra-op [facility] aspirin 81 mg chewable tablet 04-11 09:12: 29 Yes 81mg Take 1 tablet by mouth in the morning. [facility] aspirin 81 mg chewable tablet 04-11 09:12: 29 Yes 81mg Take 1 tablet by mouth in the morning. [facility] aspirin 81 mg chewable tablet 04-11 09:12: 29 Yes 81mg Take 1 tablet by mouth in the morning. [facility] aspirin 81 mg chewable tablet 2023-0 11 09:12: 29 Yes 81mg Take 1 tablet by mouth in the morning. [facility] mg chewable tablet 2023-0 11 09:12: 29 Yes 81mg Take 1 tablet by mouth in the morning. [facility] 81 mg chewable tablet 2023-0 11 09:12: 29 Yes 81mg Take 1 tablet by mouth in the morning. [facility] aspirin 81 mg chewable tablet 2023-0 11 09:12: 29 Yes 81mg Take 1 tablet by mouth in the morning. [facility] aspirin 81 mg chewable tablet 2023-0 9-11 09:12: 29 Yes 81mg Take 1 tablet by mouth in the morning. [facility] aspirin 81 mg chewable tablet 2023-0 11 09:12: 29 Yes 81mg Take 1 tablet by mouth in the morning. [facility] aspirin 81 mg chewable tablet 2023-0 11 09:12: 29 Yes 81mg Take 1 tablet by mouth in the morning. [facility] aspirin 81 mg chewable tablet 2023-0 11 09:12: 29 Yes 81mg Take 1 tablet by mouth in the morning. [facility] aspirin 81 mg chewable tablet 3-0 11 09:12: 29 Yes 81mg Take 1 tablet by mouth in the morning. [facility] aspirin 81 mg chewable tablet 2023-0 11 09:12: 29 Yes 81mg Take 1 tablet by mouth in the morning. [facility] aspirin 81 mg chewable tablet 2023-0 11 09:12: 29 Yes 81mg Take 1 tablet by mouth in the morning. [facility] 81 mg chewable tablet 2023-0 11 09:12: 29 Yes 81mg Take 1 tablet by mouth in the morning. [facility] aspirin 81 mg chewable tablet 2023-0 9-11 09:12: 29 Yes 81mg Take 1 tablet by mouth in the morning. [facility] aspirin 81 mg chewable tablet 2023-0 -11 09:12: 29 Yes 81mg Take 1 tablet by mouth in the morning. [facility] TRELEGY ELLIPTA 100-62.5-25 mcg DsDv 3-0 - 00:00: 00 Yes INHALE 1 PUFF BY MOUTH EVERY DAY [facility] TRELEGY ELLIPTA 100-62.5-25 mcg DsDv 3-0 04-08 00:00: 00 Yes INHALE 1 PUFF BY MOUTH EVERY DAY [facility] TRELEGY ELLIPTA 100-62.5-25 mcg DsDv 3-0 04-08 00:00: 00 Yes INHALE 1 PUFF BY MOUTH EVERY DAY [facility] TRELEGY ELLIPTA 100-62.5-25 mcg DsDv 3-0 04-08 00:00: 00 Yes INHALE 1 PUFF BY MOUTH EVERY DAY [facility] TRELEGY ELLIPTA 100-62.5-25 mcg DsDv 3-0 04-08 00:00: 00 Yes INHALE 1 PUFF BY MOUTH EVERY DAY [facility] TRELEGY ELLIPTA 100-62.5-25 mcg DsDv 3-0 04-08 00:00: 00 Yes INHALE 1 PUFF BY MOUTH EVERY DAY [facility] TRELEGY ELLIPTA 100-62.5-25 mcg DsDv 3-0 04-08 00:00: 00 Yes INHALE 1 PUFF BY MOUTH EVERY DAY [facility] TRELEGY ELLIPTA 100-62.5-25 mcg DsDv 3-0 04-08 00:00: 00 Yes INHALE 1 PUFF BY MOUTH EVERY DAY [facility] TRELEGY ELLIPTA 100-62.5-25 mcg DsDv 3-0 04-08 00:00: 00 Yes INHALE 1 PUFF BY MOUTH EVERY DAY [facility] TRELEGY ELLIPTA 100-62.5-25 mcg DsDv 3-0 04-08 00:00: 00 Yes INHALE 1 PUFF BY MOUTH EVERY DAY [facility] TRELEGY ELLIPTA 100-62.5-25 mcg DsDv 3-0 - 00:00: 00 Yes INHALE 1 PUFF BY MOUTH EVERY DAY [facility] TRELEGY ELLIPTA 100-62.5-25 mcg DsDv 3-0 04-08 00:00: 00 Yes INHALE 1 PUFF BY MOUTH EVERY DAY [facility] TRELEGY ELLIPTA 100-62.5-25 mcg DsDv 2022-0 04-08 00:00: 00 Yes INHALE 1 PUFF BY MOUTH EVERY DAY [facility] TRELEGY ELLIPTA 100-62.5-25 mcg DsDv 3-0 04-08 00:00: 00 Yes INHALE 1 PUFF BY MOUTH EVERY DAY [facility] TRELEGY ELLIPTA 100-62.5-25 mcg DsDv 3-0 04-08 00:00: 00 Yes INHALE 1 PUFF BY MOUTH EVERY DAY [facility] TRELEGY ELLIPTA 100-62.5-25 mcg DsDv 3-0 04-08 00:00: 00 Yes INHALE 1 PUFF BY MOUTH EVERY DAY [facility] TRELEGY ELLIPTA 100-62.5-25 mcg DsDv 3-0 04-08 00:00: 00 Yes INHALE 1 PUFF BY MOUTH EVERY DAY [facility] aspirin 81 mg chewable tablet 2022-0 04-07 16:51: 35 Yes 81mg Take 1 tablet by mouth in the morning. [facility] aspirin 81 mg chewable tablet 2022-0 04-07 16:51: 35 Yes 81mg Take 1 tablet by mouth in the morning. [facility] aspirin 81 mg chewable tablet 2022-0 04-07 16:51: 35 Yes 81mg Take 1 tablet by mouth in the morning. [facility] aspirin 81 mg chewable tablet 2022-0 04-07 16:51: 35 Yes 81mg Take 1 tablet by mouth in the morning. [facility] spironolact one (ALDACTONE) tablet 25 mg 2022-04-07 14:00: 00 Yes 25mg 25 mg, Oral, DAILY, First dose on Maribell 04/07/23 at 0900, Until Discontinu ed, Routine [facility] aspirin chewable tablet 81 mg 2022-0 04-07 14:00: 00 Yes 81mg 81 mg, Oral, DAILY, First dose on Maribell /7/23 at 0900, Until Discontinu ed, Routine [facility] enoxaparin (LOVENOX) injection 40 mg 04-07 14:00: 00 Yes 40mg 40 mg, Subcutaneo us, DAILY, First dose on Tue04/07/23 at 0900, Until Discontinu ed, Routine [facility] spironolact one (ALDACTONE) tablet 25 mg 04-07 14:00: 00 04-07 23:51 :39 No 25mg 25 mg, Oral, DAILY, First dose on Tue04/07/23 at 0900, Until Discontinu ed, Routine [facility] aspirin chewable tablet 81 mg 04-07 14:00: 00 04-07 23:51 :39 No 81mg 81 mg, Oral, DAILY, First dose on Tue04/07/23 at 0900, Until Discontinu ed, Routine [facility] enoxaparin (LOVENOX) injection 40 mg 04-07 14:00: 00 04-07 23:51 :39 No 40mg 40 mg, Subcutaneo us, DAILY, First dose on Tue04/07/23 at 0900, Until Discontinu ed, Routine [facility] magnesium sulfate in water 4 gram/50 mL (8 %) IV Piggyback 4 g 04-07 13:00: 00 04-07 16:01 :00 No 4g 4 g, IV Piggyback, at 25 mL/hr Administer over 120 Minutes, ONCE, 1 dose, On Tue04/07/23 at 0800, Routine [facility] magnesium sulfate in water 4 gram/50 mL (8 %) IV Piggyback 4 g 04-07 13:00: 00 04-07 16:01 :00 No 4g 4 g, IV Piggyback, at 25 mL/hr Administer over 120 Minutes, ONCE, 1 dose, On Tue04/07/23 at 0800, Routine [facility] oxyCODONE-a cetaminophe n (PERCOCET) 5-325 mg per tablet 1 tablet 04-07 06:08: 49 Yes 1{tbl} 1 tablet, Oral, Q8HPRN, Starting on Tue04/07/23 at 0108, Until Discontinu ed, Pain (scale 7-10) [facility] oxyCODONE-a cetaminophe n (PERCOCET) 5-325 mg per tablet 1 tablet 04-07 06:08: 49 04-07 23:51 :39 No 1{tbl} 1 tablet, Oral, Q8HPRN, Starting on Tue04/07/23 at 0108, Until Maribell 04/07/23 at 1851, Pain (scale 7-10) [facility] albuterol (VENTOLIN) inhaler 2 Puff 04-07 06:08: 35 Yes 2{puff} 2 Puff, Inhalation , Q6HPRN, Starting on Tue04/07/23 at 0108, Until Discontinu ed, Routine, Wheezing, Shortness of Breath [facility] albuterol (VENTOLIN) inhaler 2 Puff 04-07 06:08: 35 04-07 23:51 :39 No 2{puff} 2 Puff, Inhalation , Q6HPRN, Starting on Tue04/07/23 at 0108, Until Maribell 04/07/23 at 1851, Routine, Wheezing, Shortness of Breath [facility] acetaminoph en (TYLENOL) tablet 650 mg 04-07 05:14: 48 Yes 650mg 650 mg, Oral, Q6HPRN, Starting on Tue04/07/23 at 0014, Until Discontinu ed, Routine, Pain (scale 1-3) [facility] acetaminoph en (TYLENOL) tablet 650 mg 04-07 05:14: 48 04-07 23:51 :39 No 650mg 650 mg, Oral, Q6HPRN, Starting on Maribell 04/07/23 at 0014, Until Maribell 04/07/23 at 1851, Routine, Pain (scale 1-3) [facility] ondansetron (ZOFRAN (PF)) injection 4 mg 04-07 01:42: 18 Yes [id number] 4mg 4 mg, Slow IV Push, PRN, 1 dose, Starting on Tue04/06/23 at 2041, Until Discontinu ed, Routine, Nausea and Vomiting (N/V), IR Post Procedure [facility] FENTanyl PF (SUBLIMAZE (PF)) injection 25 mcg 04-07 01:42: 18 04-07 06:09 :18 No [id number] 25ug 25 mcg, Slow IV Push, Q5MIN PRN, 4 doses, Starting on Tue04/06/23 at 2041, Until Maribell 04/07/23 at 0109, Routine, Pain (scale 4-6), IR Post Procedure [facility] FENTanyl PF (SUBLIMAZE (PF)) injection 25 mcg 04-07 01:42: 18 04-07 06:09 :18 No [id number] 25ug 25 mcg, Slow IV Push, Q5MIN PRN, 4 doses, Starting on Tue04/06/23 at 2041, Until Maribell 04/07/23 at 0109, Routine, Pain (scale 4-6), IR Post Procedure [facility] ondansetron (ZOFRAN (PF)) injection 4 mg 04-07 01:42: 18 04-07 23:51 :39 No [id number] 4mg 4 mg, Slow IV Push, PRN, 1 dose, Starting on Tue04/06/23 at 2041, Until Maribell 04/07/23 at 1851, Routine, Nausea and Vomiting (N/V), IR Post Procedure [facility] aspirin 81 mg chewable tablet 04-07 01:09: 48 Yes 81mg Take 1 tablet by mouth in the morning. [facility] aspirin 81 mg chewable tablet 04-07 01:09: 48 Yes 81mg Take 1 tablet by mouth in the morning. [facility] aspirin 81 mg chewable tablet 04-07 01:09: 48 Yes 81mg Take 1 tablet by mouth in the morning. [facility] gabapentin 300 mg capsule 04-07 01:09: 48 04-07 00:00 :00 No 300mg Take 1 capsule by mouth in the morning and 1 capsule in the evening. [facility] gabapentin 300 mg capsule 04-07 01:09: 48 04-07 00:00 :00 No 300mg Take 1 capsule by mouth in the morning and 1 capsule in the evening. [facility] gabapentin 300 mg capsule 04-07 01:09: 48 04-07 00:00 :00 No 300mg Take 1 capsule by mouth in the morning and 1 capsule in the evening. [facility] gabapentin 300 mg capsule 04-07:: 48 04-07 00:00 :00 No 300mg Take 1 capsule by mouth in the morning and 1 capsule in the evening. [facility] iopamidol (ISOVUE 300-500 mL) injection 260 mL 04-07 00:35: 39 04-07 00:36 :00 No [id number] 260mL 260 mL, Intravenou s, TITRATE - FOR PROCEDURE USE, 1 dose, Starting on Tue04/06/23 at 1935, Until Tue04/06/23 at 1936, Routine, Surgery/Pr ocedure [facility] iopamidol (ISOVUE 300-500 mL) injection 260 mL 04-07 00:35: 39 04-07 00:36 :00 No [id number] 260mL 260 mL, Intravenou s, TITRATE - FOR PROCEDURE USE, 1 dose, Starting on Tue04/06/23 at 1935, Until Tue04/06/23 at 1936, Routine, Surgery/Pr ocedure [facility] yttrium Y-90 resin microsphere s injection 22.3 millicurie 04-06 22:45: 00 04-06 22:45 :00 No [id number] 22.3mCi 22.3 millicurie , Intravenou s, ONCE, 1 dose, On Tue04/06/23 at 1745, Routine [facility] iopamidol (ISOVUE 370-500 mL) injection 70 mL 04-06 15:45: 00 04-06 15:38 :00 No [id number] 70mL 70 mL, Intravenou s, ONCE, 1 dose, On Tue04/06/23 at 1045, [facility] (ISOVUE 300-100 mL) injection 100 mL 04-01 19:00: 00 04-01 18:00 :00 No [id number] 100mL 100 mL, Intravenou s, ONCE, 1 dose, On Tue04/01/23 at 1400, Routine [facility] iopamidol (ISOVUE 300-100 mL) injection 100 mL 04-01 19:00: 00 04-01 18:00 :00 No [id number] 100mL 100 mL, Intravenou s, ONCE, 1 dose, On Tue04/01/23 at 1400, Routine [facility] midazolam (VERSED) injection 04-01 17:36: 34 Yes IV Push, PRN, Starting on Tue04/01/23 at 1236, Until Discontinu ed, Routine, Intra-op [facility] midazolam (VERSED) injection 04-01 17:36: 34 04-02 09:12 :49 No IV Push, PRN, Starting on Tue04/01/23 at 1236, Until 04/02/23 at 0412, Routine, Intra-op [facility] tc 99m-albumin (DRAXIMAGE MAA) injection 3.2 millicurie 04-01 17:30: 00 04-01 17:30 :00 No [id number] 3.2mCi 3.2 millicurie , Intravenou s, ONCE, 1 dose, On Tue04/01/23 at 1230, Routine [facility] FENTanyl PF (SUBLIMAZE (PF)) injection 04-01 14:26: 54 Yes Slow IV Push, PRN, Starting on Tue04/01/23 at 0926, Until Discontinu ed, Routine, Intra-op [facility] FENTanyl PF (SUBLIMAZE (PF)) injection 04-01 14:26: 54 04-02 09:12 :49 No Slow IV Push, PRN, Starting on Tue04/01/23 at 0926, Until 04/02/23 at 0412, Routine, Intra-op [facility] ceFAZolin (ANCEF) injection 04-01 14:11: 03 Yes Slow IV Push, PRN, Starting on Tue04/01/23 at 0911, Until Discontinu ed, LARRY, Intra-op [facility] ceFAZolin (ANCEF) injection 04-01 14:11: 03 04-02 09:12 :49 No Slow IV Push, PRN, Starting on Tue04/01/23 at 0911, Until 04/02/23 at 0412, LARRY, Intra-op [facility] mometasone/ formoterol (DULERA INHALE) 02-16 14:12: 23 02-16 00:00 :00 No Inhale. [facility] nicotine 14 mg/24 hr patch 01-20 00:00: 00 Yes USE DIRECTED ONCE DAILY [facility] nicotine 14 mg/24 hr patch 01-20 00:00: 00 Yes USE DIRECTED ONCE DAILY [facility] nicotine 14 mg/24 hr patch 0 01-20 00:00: 00 Yes USE DIRECTED ONCE DAILY [facility] nicotine 14 mg/24 hr patch 0 01-20 00:00: 00 Yes USE DIRECTED ONCE DAILY [facility] nicotine 14 mg/24 hr patch 0 01-20 00:00: 00 Yes USE DIRECTED ONCE DAILY [facility] nicotine 14 mg/24 hr patch 01-20 00:00: 00 Yes USE DIRECTED ONCE DAILY [facility] nicotine 14 mg/24 hr patch 0 01-20 00:00: 00 Yes USE DIRECTED ONCE DAILY [facility] nicotine 14 mg/24 hr patch 0 01-20 00:00: 00 04-07 00:00 :00 No USE DIRECTED ONCE DAILY [facility] nicotine 14 mg/24 hr patch 01-20 00:00: 00 04-07 00:00 :00 No USE DIRECTED ONCE DAILY [facility] nicotine 14 mg/24 hr patch 01-20 00:00: 00 04-07 00:00 :00 No USE DIRECTED ONCE DAILY [facility] nicotine 14 mg/24 hr patch 01-20 00:00: 00 04-07 00:00 :00 No USE DIRECTED ONCE DAILY [facility] gadobenate dimeglumine (MULTIHANCE -20 mL) injection 0.2 mL/kg 01-19 16:00: 00 01-19 15:46 :00 No [id number] .2mL/kg 0.2 mL/kg, Intravenou s, ONCE, 1 dose, On Tue01/19/23 at 1100, Routine [facility] spironolact one 25 mg tablet 01-03 00:00: 00 Yes [id number] 25mg Take 1 tablet by mouth in the morning. [facility] spironolact one 25 mg tablet 2022-0 01-03 00:00: 00 Yes [id number] 25mg Take 1 tablet by mouth in the morning. [facility] spironolact one 25 mg tablet 2022-0 01-03 00:00: 00 Yes [id number] 25mg Take 1 tablet by mouth in the morning. [facility] spironolact one 25 mg tablet 2022-0 01-03 00:00: 00 Yes [id number] 25mg Take 1 tablet by mouth in the morning. [facility] spironolact one 25 mg tablet 2022-0 01-03 00:00: 00 Yes [id number] 25mg Take 1 tablet by mouth in the morning. [facility] spironolact one 25 mg tablet 2022-0 01-03 00:00: 00 Yes [id number] 25mg Take 1 tablet by mouth in the morning. [facility] spironolact one 25 mg tablet 2023-0 605 00:00: 00 Yes [id number] 25mg Take 1 tablet by mouth in the morning. [facility] spironolact one 25 mg tablet 2023-0 6-05 00:00: 00 Yes [id number] 25mg Take 1 tablet by mouth in the morning. [facility] spironolact one 25 mg tablet 2023-0 605 00:00: 00 Yes [id number] 25mg Take 1 tablet by mouth in the morning. [facility] spironolact one 25 mg tablet 2023-0 6-05 00:00: 00 Yes [id number] 25mg Take 1 tablet by mouth in the morning. [facility] spironolact one 25 mg tablet 2023-0 6-05 00:00: 00 Yes [id number] 25mg Take 1 tablet by mouth in the morning. [facility] spironolact one 25 mg tablet 2023-0 605 00:00: 00 Yes [id number] 25mg Take 1 tablet by mouth in the morning. [facility] spironolact one 25 mg tablet 2023-0 605 00:00: 00 Yes [id number] 25mg Take 1 tablet by mouth in the morning. [facility] spironolact one 25 mg tablet 3-0 605 00:00: 00 Yes [id number] 25mg Take 1 tablet by mouth in the morning. [facility] spironolact one 25 mg tablet 2023-0 605 00:00: 00 Yes [id number] 25mg Take 1 tablet by mouth in the morning. [facility] spironolact one 25 mg tablet 2023-0 605 00:00: 00 Yes [id number] 25mg Take 1 tablet by mouth in the morning. [facility] spironolact one 25 mg tablet 2023-0 605 00:00: 00 Yes [id number] 25mg Take 1 tablet by mouth in the morning. [facility] spironolact one 25 mg tablet 2023-0 6-05 00:00: 00 Yes [id number] 25mg Take 1 tablet by mouth in the morning. [facility] spironolact one 25 mg tablet 2023-0 605 00:00: 00 Yes [id number] 25mg Take 1 tablet by mouth in the morning. [facility] spironolact one 25 mg tablet 2023-0 605 00:00: 00 Yes [id number] 25mg Take 1 tablet by mouth in the morning. [facility] spironolact one 25 mg tablet 2023-0 605 00:00: 00 Yes [id number] 25mg Take 1 tablet by mouth in the morning. [facility] spironolact one 25 mg tablet 2023-0 605 00:00: 00 Yes [id number] 25mg Take 1 tablet by mouth in the morning. [facility] spironolact one 25 mg tablet 3-0 605 00:00: 00 Yes [id number] 25mg Take 1 tablet by mouth in the morning. [facility] spironolact one 25 mg tablet 3-0 01-03 00:00: 00 Yes [id number] 25mg Take 1 tablet by mouth in the morning. [facility] spironolact one 25 mg tablet 3-0 01-03 00:00: 00 Yes [id number] 25mg Take 1 tablet by mouth in the morning. [facility] spironolact one 25 mg tablet 3-0 01-03 00:00: 00 Yes [id number] 25mg Take 1 tablet by mouth in the morning. [facility] spironolact one 25 mg tablet 3-0 605 00:00: 00 Yes [id number] 25mg Take 1 tablet by mouth in the morning. [facility] spironolact one 25 mg tablet 3-0 605 00:00: 00 Yes [id number] 25mg Take 1 tablet by mouth in the morning. [facility] spironolact one 25 mg tablet 2023-0 605 00:00: 00 Yes [id number] 25mg Take 1 tablet by mouth in the morning. [facility] spironolact one 25 mg tablet 2023-0 605 00:00: 00 Yes [id number] 25mg Take 1 tablet by mouth in the morning. [facility] spironolact one 25 mg tablet 2022-0 01-03 00:00: 00 Yes [id number] 25mg Take 1 tablet by mouth in the morning. [facility] spironolact one 25 mg tablet 2022-0 01-03 00:00: 00 Yes [id number] 25mg Take 1 tablet by mouth in the morning. [facility] spironolact one 25 mg tablet 2022-0 01-03 00:00: 00 Yes [id number] 25mg Take 1 tablet by mouth in the morning. [facility] spironolact one 25 mg tablet 2022-0 01-03 00:00: 00 Yes [id number] 25mg Take 1 tablet by mouth in the morning. [facility] spironolact one 25 mg tablet 2022-0 01-03 00:00: 00 Yes [id number] 25mg Take 1 tablet by mouth in the morning. [facility] spironolact one 25 mg tablet 2022-0 01-03 00:00: 00 Yes [id number] 25mg Take 1 tablet by mouth in the morning. [facility] spironolact one 25 mg tablet 2022-0 01-03 00:00: 00 Yes [id number] 25mg Take 1 tablet by mouth in the morning. [facility] DULERA 100-5 mcg/actuati on inhaler 3-0 11-26 00:00: 00 Yes INHALE 2 PUFFS TWICE A DAY FOR 30 DAYS [facility] DULERA 100-5 mcg/actuati on inhaler 3-0 11-26 00:00: 00 Yes INHALE 2 PUFFS TWICE A DAY FOR 30 DAYS [facility] DULERA 100-5 mcg/actuati on inhaler 3-0 11-26 00:00: 00 Yes INHALE 2 PUFFS TWICE A DAY FOR 30 DAYS [facility] DULERA 100-5 mcg/actuati on inhaler 3-0 11-26 00:00: 00 Yes INHALE 2 PUFFS TWICE A DAY FOR 30 DAYS [facility] DULERA 100-5 mcg/actuati on inhaler 3-0 11-26 00:00: 00 Yes INHALE 2 PUFFS TWICE A DAY FOR 30 DAYS [facility] DULERA 100-5 mcg/actuati on inhaler 0 11-26 00:00: 00 Yes INHALE 2 PUFFS TWICE A DAY FOR [address] [facility] DULERA 100-5 mcg/actuati on inhaler 0 11-26 00:00: 00 Yes INHALE 2 PUFFS TWICE A DAY FOR 30 DAYS [facility] DULERA 100-5 mcg/actuati on inhaler 0 11-26 00:00: 00 04-07 00:00 :00 No INHALE 2 PUFFS TWICE A DAY FOR 30 DAYS [facility] DULERA 100-5 mcg/actuati on inhaler 0 11-26 00:00: 00 04-07 00:00 :00 No INHALE 2 PUFFS TWICE A DAY FOR [address] [facility] D[facility]-5 mcg/actuati on inhaler 0 11-26 00:00: 00 04-07 00:00 :00 No INHALE 2 PUFFS TWICE A DAY FOR [address] [facility] DULERA 100-5 mcg/actuati on inhaler 0 11-26 00:00: 00 04-07 00:00 :00 No INHALE 2 PUFFS TWICE A DAY FOR 30 DAYS [facility] SPIRIVA RESPIMAT 1.25 mcg/actuati on Mist 0 11-25 00:00: 00 Yes 2{puff} Inhale 2 Puffs in the morning. [facility] SPIRIVA RESPIMAT 1.25 mcg/actuati on Mist 0 11-25 00:00: 00 Yes 2{puff} Inhale 2 Puffs in the morning. [facility] SPIRIVA RESPIMAT 1.25 mcg/actuati on Mist 0 11-25 00:00: 00 Yes 2{puff} Inhale 2 Puffs in the morning. [facility] SPIRIVA RESPIMAT 1.25 mcg/actuati on Mist 0 11-25 00:00: 00 Yes 2{puff} Inhale 2 Puffs in the morning. [facility] SPIRIVA RESPIMAT 1.25 mcg/actuati on Mist 0 11-25 00:00: 00 Yes 2{puff} Inhale 2 Puffs in the morning. [facility] SPIRIVA RESPIMAT 1.25 mcg/actuati on Mist 0 11-25 00:00: 00 Yes 2{puff} Inhale 2 Puffs in the morning. [facility] SPIRIVA RESPIMAT 1.25 mcg/actuati on Mist 0 11-25 00:00: 00 Yes 2{puff} Inhale 2 Puffs in the morning. [facility] SPIRIVA RESPIMAT 1.25 mcg/actuati on Mist 11-25 00:00: 00 04-07 00:00 :00 No 2{puff} Inhale 2 Puffs in the morning. [facility] SPIRIVA RESPIMAT 1.25 mcg/actuati on Mist 11-25 00:00: 00 04-07 00:00 :00 No 2{puff} Inhale 2 Puffs in the morning. [facility] SPIRIVA RESPIMAT 1.25 mcg/actuati on Mist 11-25 00:00: 00 04-07 00:00 :00 No 2{puff} Inhale 2 Puffs in the morning. [facility] SPIRIVA RESPIMAT 1.25 mcg/actuati on Mist 11-25 00:00: 00 04-07 00:00 :00 No 2{puff} Inhale 2 Puffs in the morning. [facility] iopamidol (ISOVUE 300-500 mL) injection 300 mL 10-18 17:00: 00 10-18 16:10 :00 No [id number] 300mL 300 mL, Intravenou s, ONCE, 1 dose, On Tue10/18/22 at 1200, Routine [facility] iopamidol (ISOVUE 300-500 mL) injection 300 mL 10-18 17:00: 00 10-18 16:10 :00 No [id number] 300mL 300 mL, Intravenou s, ONCE, 1 dose, On Tue10/18/22 at 1200, Routine [facility] yttrium Y-90 resin microsphere s injection 35.4 millicurie 10-18 15:45: 00 10-18 15:35 :00 No [id number] 35.4mCi 35.4 millicurie , Intravenou s, ONCE, 1 dose, On Tue10/18/22 at 1045, [facility] ondans[facility] (ZOFRAN (PF)) injection 10-18 15:13: 55 10-18 15:13 :55 No PRN, Starting on Tue10/18/22 at 1013, Until Discontinu ed, Routine, Intra-op [facility] ondansetron (ZOFRAN (PF)) injection 10-18 15:13: 55 10-18 15:13 :55 No PRN, Starting on Tue10/18/22 at 1013, Until Tue10/18/22 at 1013, Rout[facility], [facility] FENT[facility] (SUBLIMAZE (PF)) injection 10-18 14:04: 00 10-18 15:39 :00 No Slow IV Push, PRN, Starting on Tue10/18/22 at 0904, Until Discontinu ed, Routine, Intra-op [facility] midazolam (VERSED) injection 10-18 14:04: 00 10-18 14:21 :00 No IV Push, PRN, Starting on Tue10/18/22 at 0904, Until Discontinu ed, Routine, Intra-op [facility] FENTanyl PF (SUBLIMAZE (PF)) injection 10-18 14:04: 00 10-18 15:39 :00 No Slow IV Push, PRN, Starting on Tue10/18/22 at 0904, Until Tue10/18/22 at 1039, Routine, Intra-op [facility] midazolam (VERSED) injection 10-18 14:04: 00 10-18 14:21 :00 No IV Push, PRN, Starting on Tue10/18/22 at 0904, Until Tue10/18/22 at 0921, Routine, Intra-op [facility] lidocaine 1% (PF) (XYLOCAINE) injection 10-18 13:52: 41 10-18 13:52 :41 No PRN, Starting on Tue10/18/22 at 0852, Until Discontinu ed, Routine, Intra-op [facility] lidocaine 1% (PF) (XYLOCAINE) injection 10-18 13:52: 41 10-18 13:52 :41 No PRN, Starting on Tue10/18/22 at 0852, Until Tue10/18/22 at 0852, Routine, Intra-op [facility] piperacilli n-tazobacta m (ZOSYN) 3.375 g in NaCl 0.9% (NS) 100 mL MINI-BAG 10-18 13:30: 00 10-18 14:17 :00 No [id number] 3.375g 3.375 g, IV Piggyback, ONCE, 1 dose, On Tue10/18/22 at 0830, Administer over 30 Minutes, 100 mL
Reas on for Anti-Infec tive: Surgical Prophylaxi s
Surgi reynaldo Prophylaxi s: Abdominal< br>Duratio n of therapy: within 24 hours of surgery [facility] piperacilli n-tazobacta m (ZOSYN) 3.375 g in NaCl 0.9% (NS) 100 mL MINI-BAG 10-18 13:30: 00 10-18 14:17 :00 No [id number] 3.375g 3.375 g, IV Piggyback, ONCE, 1 dose, On Tue10/18/22 at 0830, Administer over 30 Minutes, 100 mL
Reas on for Anti-Infec tive: Surgical Prophylaxi s
Surgi reynaldo Prophylaxi s: Abdominal< br>Duratio n of therapy: within 24 hours of surgery [facility] iopamidol (ISOVUE 300-500 mL) injection 350 mL 10-08 23:15: 00 10-08 22:25 :00 No [id number] 350mL 350 mL, Intravenou s, ONCE, 1 dose, On Tue10/08/22 at 1715, Routine [facility] iopamidol (ISOVUE 300-500 mL) injection 350 mL 10-08 23:15: 00 10-08 22:25 :00 No [id number] 350mL 350 mL, Intravenou s, ONCE, 1 dose, On Tue10/08/22 at 1715, Routine [facility] tc 99m-albumin (DRAXIMAGE MAA) injection 3.1 millicurie 10-08 17:00: 00 10-08 17:00 :00 No [id number] 3.1mCi 3.1 millicurie , Intravenou s, ONCE, 1 dose, On Tue10/08/22 at 1100, Routine [facility] FENTanyl PF (SUBLIMAZE (PF)) injection 10-08 14:52: 56 10-08 14:52 :56 No Slow IV Push, PRN, Starting on Tue10/08/22 at 0852, Until Tue10/08/22 at 0852, Routine, Intra-op [facility] FENTanyl PF (SUBLIMAZE (PF)) injection 10-08 14:52: 56 10-08 14:52 :56 No Slow IV Push, PRN, Starting on Tue10/08/22 at 0852, Until Tue10/08/22 at 0852, Routine, Intra-op [facility] midazolam (VERSED) injection 10-08 14:51: 41 10-08 14:51 :41 No IV Push, PRN, Starting on Tue10/08/22 at 0851, Until Tue10/08/22 at 0851, Routine, Intra-op [facility] midazolam (VERSED) injection 10-08 14:51: 41 10-08 14:51 :41 No IV Push, PRN, Starting on Tue10/08/22 at 0851, Until Tue10/08/22 at 0851, Routine, Intra-op [facility] spironolact one 100 mg tablet 2023-0 3 10:32: 10-04 00:00 :00 No 100mg Take 100 mg by mouth in the morning. [facility] spironolact one 100 mg tablet 2023-0 3 10:32: 2022- 10-04 00:00 :00 No 100mg Take 100 mg by mouth in the morning. [facility] spironolact one 25 mg tablet 2023-0 3- 00:00: 00 Yes 25mg Take 1 tablet by mouth in the morning. [facility] spironolact one 25 mg tablet 2023-0 3 00:00: 00 Yes 25mg Take 1 tablet by mouth in the morning. [facility] spironolact one 25 mg tablet 2023-0 3 00:00: 00 Yes 25mg Take 1 tablet by mouth in the morning. [facility] spironolact one 25 mg tablet 2023-0 3 00:00: 00 Yes 25mg Take 1 tablet by mouth in the morning. [facility] spironolact one 25 mg tablet 2023-0 3 00:00: 00 Yes 25mg Take 1 tablet by mouth in the morning. [facility] spironolact one 25 mg tablet 2023-0 3- 00:00: 00 Yes 25mg Take 1 tablet by mouth in the morning. [facility] spironolact one 25 mg tablet 2023-0 3- 00:00: 00 Yes 25mg Take 1 tablet by mouth in the morning. [facility] spironolact one 25 mg tablet 2023-0 3- 00:00: 00 Yes 25mg Take 1 tablet by mouth in the morning. [facility] spironolact one 25 mg tablet 2023-0 3- 00:00: 00 Yes 25mg Take 1 tablet by mouth in the morning. [facility] spironolact one 25 mg tablet 2023-0 3- 00:00: 00 Yes 25mg Take 1 tablet by mouth in the morning. [facility] spironolact one 25 mg tablet 2022-0 3 00:00: 00 Yes 25mg Take 1 tablet by mouth in the morning. [facility] spironolact one 25 mg tablet 2022-0 3 00:00: 00 Yes 25mg Take 1 tablet by mouth in the morning. [facility] spironolact one 25 mg tablet 0 10-04 00:00: 00 Yes 25mg Take 1 tablet by mouth in the morning. [facility] spironolact one 25 mg tablet 0 10-04 00:00: 00 Yes 25mg Take 1 tablet by mouth in the morning. [facility] spironolact one 25 mg tablet 10-04 00:00: 00 01-03 00:00 :00 No 25mg Take 1 tablet by mouth in the morning. [facility] spironolact one 25 mg tablet 10-04 00:00: 00 01-03 00:00 :00 No 25mg Take 1 tablet by mouth in the morning. [facility] tc 99m-medrona te (DRAXIMAGE MDP-25) injection 26.1 millicurie 08-25 16:30: 00 08-25 16:17 :00 No [id number] 26.1mCi 26.1 millicurie , Intravenou s, ONCE, 1 dose, On Tue08/25/22 at 1030, Routine [facility] gadobenate dimeglumine (MULTIHANCE -15 mL) injection 0.2 mL/kg 08-25 16:15: 00 08-25 16:06 :00 No [id number] .2mL/kg 0.2 mL/kg, Intravenou s, ONCE, 1 dose, On Tue08/25/22 at 1015, Routine [facility] aspirin 81 mg chewable tablet 2021-08 09:48: 25 Yes 81mg Take 81 mg by mouth daily. [facility] aspirin 81 mg chewable tablet 2021-09-08 09:48: 25 Yes 81mg Take 81 mg by mouth daily. [facility] 81 mg chewable tablet 2021-08 09:48: 25 Yes 81mg Take 81 mg by mouth daily. [facility] aspirin 81 mg chewable tablet 2021-08 09:48: 25 Yes 81mg Take 81 mg by mouth daily. [facility] aspirin 81 mg chewable tablet 2021-08 09:48: 25 Yes 81mg Take 81 mg by mouth daily. [facility] spironolact one 100 mg tablet 2021-08 09:48: 25 Yes 100mg Take 100 mg by mouth in the morning. [facility] aspirin 81 mg chewable tablet 2021-08 09:48: 25 Yes 81mg Take 81 mg by mouth daily. [facility] spironolact one 100 mg tablet 2021-08 09:48: 25 Yes 100mg Take 100 mg by mouth in the morning. [facility] aspirin 81 mg chewable tablet 2021-08 09:48: 25 Yes 81mg Take 81 mg by mouth daily. [facility] spironolact one 100 mg tablet 2021-08 09:48: 25 Yes 100mg Take 100 mg by mouth in the morning. [facility] aspirin 81 mg chewable tablet 2021-08 09:48: 25 Yes 81mg Take 81 mg by mouth daily. [facility] spironolact one 100 mg tablet 2021-08 09:48: 25 Yes 100mg Take 100 mg by mouth in the morning. [facility] aspirin 81 mg chewable tablet 2021-09-08 09:48: 25 Yes 81mg Take 81 mg by mouth daily. [facility] spironolact one 100 mg tablet 2021-08 09:48: 25 Yes 100mg Take 100 mg by mouth in the morning. [facility] aspirin 81 mg chewable tablet 2021-09-08 09:48: 25 Yes 81mg Take 81 mg by mouth daily. [facility] spironolact one 100 mg tablet 2021-1 09-08 09:48: 25 Yes 100mg Take 100 mg by mouth in the morning. [facility] aspirin 81 mg chewable tablet 2021-09-08 09:48: 25 Yes 81mg Take 81 mg by mouth daily. [facility] spironolact one 100 mg tablet 2021-1 09-08 09:48: 25 Yes 100mg Take 100 mg by mouth in the morning. [facility] aspirin 81 mg chewable tablet 2021-1 09-08 09:48: 25 Yes 81mg Take 81 mg by mouth daily. [facility] spironolact one 100 mg tablet 2021-1 09-08 09:48: 25 Yes 100mg Take 100 mg by mouth in the morning. [facility] aspirin 81 mg chewable tablet 2021-1 09-08 09:48: 25 Yes 81mg Take 81 mg by mouth daily. [facility] spironolact one 100 mg tablet 2021-09-08 09:48: 25 Yes 100mg Take 100 mg by mouth in the morning. [facility] aspirin 81 mg chewable tablet 2021-09-08 09:48: 25 Yes 81mg Take 81 mg by mouth daily. [facility] spironolact one 100 mg tablet 2021-09-08 09:48: 25 Yes 100mg Take 100 mg by mouth in the morning. [facility] aspirin 81 mg chewable tablet 2021-1 09-08 09:48: 25 Yes 81mg Take 81 mg by mouth daily. [facility] spironolact one 100 mg tablet 2021-1 09-08 09:48: 25 Yes 100mg Take 100 mg by mouth in the morning. [facility] aspirin 81 mg chewable tablet 2021-1 09-08 09:48: 25 Yes 81mg Take 81 mg by mouth daily. [facility] spironolact one 100 mg tablet 2021-1 09-08 09:48: 25 Yes 100mg Take 100 mg by mouth in the morning. [facility] aspirin 81 mg chewable tablet 2021-09-08 09:48: 25 Yes 81mg Take 81 mg by mouth daily. [facility] spironolact one 100 mg tablet 2021-09-08 09:48: 25 Yes 100mg Take 100 mg by mouth in the morning. [facility] aspirin 81 mg chewable tablet 2021-09-08 09:48: 25 Yes 81mg Take 81 mg by mouth daily. [facility] spironolact one 100 mg tablet 2021-09-08 09:48: 25 Yes 100mg Take 100 mg by mouth in the morning. [facility] aspirin 81 mg chewable tablet 2021-09-08 09:48: 25 Yes 81mg Take 81 mg by mouth daily. [facility] spironolact one 100 mg tablet 2021-09-08 09:48: 25 Yes 100mg Take 100 mg by mouth in the morning. [facility] aspirin 81 mg chewable tablet 2021-09-08 09:48: 25 Yes 81mg Take 81 mg by mouth daily. [facility] spironolact one 100 mg tablet 2021-08 09:48: 25 Yes 100mg Take 100 mg by mouth in the morning. [facility] aspirin 81 mg chewable tablet 2021-08 09:48: 25 Yes 81mg Take 81 mg by mouth daily. [facility] spironolact one 100 mg tablet 2021-09-08 09:48: 25 Yes 100mg Take 100 mg by mouth in the morning. [facility] aspirin 81 mg chewable tablet 2021-09-08 09:48: 25 Yes 81mg Take 81 mg by mouth daily. [facility] spironolact one 100 mg tablet 2021-1 09-08 09:48: 25 Yes 100mg Take 100 mg by mouth in the morning. [facility] aspirin 81 mg chewable tablet 2021-09-08 09:48: 25 Yes 81mg Take 81 mg by mouth daily. [facility] spironolact one 100 mg tablet 2021-1 09-08 09:48: 25 Yes 100mg Take 100 mg by mouth in the morning. [facility] aspirin 81 mg chewable tablet 2021-08 09:48: 25 Yes 81mg Take 81 mg by mouth daily. [facility] aspirin 81 mg chewable tablet 2021-08 09:48: 25 Yes 81mg Take 81 mg by mouth daily. [facility] aspirin 81 mg chewable tablet 2021-08 09:48: 25 Yes 81mg Take 81 mg by mouth daily. [facility] aspirin 81 mg chewable tablet 2021-08 09:48: 25 Yes 81mg Take 81 mg by mouth daily. [facility] aspirin 81 mg chewable tablet 2021-08 09:48: 25 Yes 81mg Take 81 mg by mouth daily. [facility] aspirin 81 mg chewable tablet 2021-08 09:48: 25 Yes 81mg Take 81 mg by mouth daily. [facility] aspirin 81 mg chewable tablet 2021-08 09:48: 25 Yes 81mg Take 81 mg by mouth daily. [facility] aspirin 81 mg chewable tablet 2021-08 09:48: 25 Yes 81mg Take 81 mg by mouth daily. [facility] aspirin 81 mg chewable tablet 2021-08 09:48: 25 Yes 81mg Take 81 mg by mouth daily. [facility] aspirin 81 mg chewable tablet 2021-08 09:48: 25 Yes 81mg Take 81 mg by mouth daily. [facility] aspirin 81 mg chewable tablet 2021-08 09:48: 25 Yes 81mg Take 81 mg by mouth daily. [facility] aspirin 81 mg chewable tablet 2021-08 09:48: 25 Yes 81mg Take 81 mg by mouth daily. [facility] aspirin 81 mg chewable tablet 2021-08 09:48: 25 Yes 81mg Take 81 mg by mouth daily. [facility] aspirin 81 mg chewable tablet 2021-09-08 09:48: 25 Yes 81mg Take 81 mg by mouth daily. [facility] aspirin 81 mg chewable tablet 2021-08 09:48: 25 Yes 81mg Take 81 mg by mouth daily. [facility] aspirin 81 mg chewable tablet 2021-08 09:48: 25 Yes 81mg Take 81 mg by mouth daily. [facility] aspirin 81 mg chewable tablet 2021-08 09:48: 25 Yes 81mg Take 81 mg by mouth daily. [facility] aspirin 81 mg chewable tablet 2021-08 09:48: 25 Yes 81mg Take 81 mg by mouth daily. [facility] aspirin 81 mg chewable tablet 2021-08 09:48: 25 Yes 81mg Take 81 mg by mouth daily. [facility] aspirin 81 mg chewable tablet 2021-08 09:48: 25 Yes 81mg Take 81 mg by mouth daily. [facility] aspirin 81 mg chewable tablet 2021-08 09:48: 25 Yes 81mg Take 81 mg by mouth daily. [facility] aspirin 81 mg chewable tablet 2021-08 09:48: 25 Yes 81mg Take 81 mg by mouth daily. [facility] aspirin 81 mg chewable tablet 2021-08 09:48: 25 Yes 81mg Take 81 mg by mouth daily. [facility] aspirin 81 mg chewable tablet 2021-08 09:48: 25 Yes 81mg Take 81 mg by mouth daily. [facility] TAKE 1 TABLET BY MOUTH ONCE DAILY 2021-08 00:00: 00 No aspirin 81 mg chewable tablet 2021-08 11:22: 41 Yes 81mg Take 81 mg by mouth daily. [facility] spironolact one 100 mg tablet 2021-0820 11:22: 41 Yes 100mg Take 100 mg by mouth in the morning. [facility] aspirin 81 mg chewable tablet 2021-0820 11:22: 41 Yes 81mg Take 81 mg by mouth daily. [facility] spironolact one 100 mg tablet 2021-08 020 11:22: 41 Yes 100mg Take 100 mg by mouth in the morning. [facility] aspirin 81 mg chewable tablet 2021-1 0-20 11:22: 41 Yes 81mg Take 81 mg by mouth daily. [facility] spironolact one 100 mg tablet 2021- 0-20 11:22: 41 Yes 100mg Take 100 mg by mouth in the morning. [facility] aspirin 81 mg chewable tablet 2021-1 0-20 11:22: 41 Yes 81mg Take 81 mg by mouth daily. [facility] spironolact one 100 mg tablet 2021-1 0-20 11:22: 41 Yes 100mg Take 100 mg by mouth in the morning. [facility] aspirin 81 mg chewable tablet 2021-1 0-20 11:22: 41 Yes 81mg Take 81 mg by mouth daily. [facility] spironolact one 100 mg tablet 2021- 0-20 11:22: 41 Yes 100mg Take 100 mg by mouth in the morning. [facility] aspirin 81 mg chewable tablet 2021-1 0-20 11:22: 41 Yes 81mg Take 81 mg by mouth daily. [facility] spironolact one 100 mg tablet 2021- 0-20 11:22: 41 Yes 100mg Take 100 mg by mouth in the morning. [facility] aspirin 81 mg chewable tablet 2021-1 0-20 11:22: 41 Yes 81mg Take 81 mg by mouth daily. [facility] spironolact one 100 mg tablet 2021- 0-20 11:22: 41 Yes 100mg Take 100 mg by mouth in the morning. [facility] gabapentin 300 mg capsule 2021- 0-20 11:21: 07 Yes 300mg Take 300 mg by mouth 2 (two) times daily. [facility] gabapentin 300 mg capsule 2021- 0-20 11:21: 07 Yes 300mg Take 300 mg by mouth 2 (two) times daily. [facility] gabapentin 300 mg capsule 2021- 0-20 11:21: 07 Yes 300mg Take 300 mg by mouth 2 (two) times daily. [facility] gabapentin 300 mg capsule 2021- 020 11:21: 07 Yes 300mg Take 300 mg by mouth 2 (two) times daily. [facility] gabapentin 300 mg capsule 2021- 020 11:21: 07 Yes 300mg Take 300 mg by mouth 2 (two) times daily. [facility]- 020 11:21: 07 Yes 300mg Take 300 mg by mouth 2 (two) times daily. [facility]- 020 11:21: 07 Yes 300mg Take 300 mg by mouth 2 (two) times daily. [facility]- 0 11:21: 07 Yes 300mg Take 300 mg by mouth 2 (two) times daily. [facility] gabapentin 300 mg capsule 2021-08 11:21: 07 Yes 300mg Take 300 mg by mouth 2 (two) times daily. [facility] gabapentin 300 mg capsule 2021-08 0 11:21: 07 Yes 300mg Take 300 mg by mouth 2 (two) times daily. [facility] gabapentin 300 mg capsule 2021- 0 11:21: 07 Yes 300mg Take 300 mg by mouth 2 (two) times daily. [facility] gabapentin 300 mg capsule 2021-08 0 11:21: 07 Yes 300mg Take 300 mg by mouth 2 (two) times daily. [facility] gabapentin 300 mg capsule 2021- 020 11:21: 07 Yes 300mg Take 300 mg by mouth 2 (two) times daily. [facility] gabapentin 300 mg capsule 2021- 020 11:21: 07 Yes 300mg Take 300 mg by mouth 2 (two) times daily. [facility] gabapentin 300 mg capsule 2021- 0-20 11:21: 07 Yes 300mg Take 300 mg by mouth 2 (two) times daily. [facility] gabapentin 300 mg capsule 2021- 0-20 11:21: 07 Yes 300mg Take 300 mg by mouth 2 (two) times daily. [facility] gabapentin 300 mg capsule 2021-20 11:21: 07 Yes 300mg Take 300 mg by mouth 2 (two) times daily. [facility] gabapentin 300 mg capsule 2021- 020 11:21: 07 Yes 300mg Take 300 mg by mouth 2 (two) times daily. [facility] gabapentin 300 mg capsule 2021-20 11:21: 07 Yes 300mg Take 300 mg by mouth 2 (two) times daily. [facility] gabapentin 300 mg capsule 2021-20 11:21: 07 Yes 300mg Take 300 mg by mouth 2 (two) times daily. [facility] gabapentin 300 mg capsule 2021- 11:21: 07 Yes 300mg Take 300 mg by mouth 2 (two) times daily. [facility] gabapentin 300 mg capsule 2021- 11:21: 07 Yes 300mg Take 300 mg by mouth 2 (two) times daily. [facility] gabapentin 300 mg capsule 2021- 11:21: 07 Yes 300mg Take 300 mg by mouth 2 (two) times daily. [facility] gabapentin 300 mg capsule 2021-08 11:21: 07 Yes 300mg Take 300 mg by mouth 2 (two) times daily. [facility] gabapentin 300 mg capsule 2021-08 11:21: 07 Yes 300mg Take 300 mg by mouth 2 (two) times daily. [facility] gabapentin 300 mg capsule 2021- 11:21: 07 Yes 300mg Take 300 mg by mouth 2 (two) times daily. [facility] gabapentin 300 mg capsule 2021-20 11:21: 07 Yes 300mg Take 300 mg by mouth 2 (two) times daily. [facility] gabapentin 300 mg capsule 2021- 020 11:21: 07 Yes 300mg Take 300 mg by mouth 2 (two) times daily. [facility] gabapentin 300 mg capsule 2021- 020 11:21: 07 Yes 300mg Take 300 mg by mouth 2 (two) times daily. [facility] gabapentin 300 mg capsule 2021-1 0-20 11:21: 07 Yes 300mg Take 300 mg by mouth 2 (two) times daily. [facility] gabapentin 300 mg capsule 2021- 11:21: 07 Yes 300mg Take 300 mg by mouth 2 (two) times daily. [facility] gabapentin 300 mg capsule 2021- 11:21: 07 Yes 300mg Take 300 mg by mouth 2 (two) times daily. [facility] gabapentin 300 mg capsule 2021- 11:21: 07 Yes 300mg Take 300 mg by mouth 2 (two) times daily. [facility] gabapentin 300 mg capsule 2021- 11:21: 07 Yes 300mg Take 300 mg by mouth 2 (two) times daily. [facility] gabapentin 300 mg capsule 2021-08 11:21: 07 Yes 300mg Take 300 mg by mouth 2 (two) times daily. [facility] gabapentin 300 mg capsule 2021-08 11:21: 07 Yes 300mg Take 300 mg by mouth 2 (two) times daily. [facility] gabapentin 300 mg capsule 2021-08 11:21: 07 Yes 300mg Take 300 mg by mouth 2 (two) times daily. [facility] gabapentin 300 mg capsule 2021-08 11:21: 07 Yes 300mg Take 300 mg by mouth 2 (two) times daily. [facility] gabapentin 300 mg capsule 2021- 11:21: 07 Yes 300mg Take 300 mg by mouth 2 (two) times daily. [facility] gabapentin 300 mg capsule 2021- 11:21: 07 Yes 300mg Take 300 mg by mouth 2 (two) times daily. [facility] gabapentin 300 mg capsule 2021- 11:21: 07 Yes 300mg Take 300 mg by mouth 2 (two) times daily. [facility] gabapentin 300 mg capsule 2021- 11:21: 07 Yes 300mg Take 300 mg by mouth 2 (two) times daily. [facility] gabapentin 300 mg capsule 2021- 11:21: 07 Yes 300mg Take 300 mg by mouth 2 (two) times daily. [facility] gabapentin 300 mg capsule 2021-08 11:21: 07 Yes 300mg Take 300 mg by mouth 2 (two) times daily. [facility] gabapentin 300 mg capsule 2021-08 11:21: 07 Yes 300mg Take 300 mg by mouth 2 (two) times daily. [facility] gabapentin 300 mg capsule 2021-08 11:21: 07 Yes 300mg Take 300 mg by mouth 2 (two) times daily. [facility] gabapentin 300 mg capsule 2021-08 11:21: 07 Yes 300mg Take 300 mg by mouth 2 (two) times daily. [facility] gabapentin 300 mg capsule 2021-08 11:21: 07 Yes 300mg Take 300 mg by mouth 2 (two) times daily. [facility] gabapentin 300 mg capsule 2021-08 11:21: 07 Yes 300mg Take 300 mg by mouth 2 (two) times daily. [facility] gabapentin 300 mg capsule 2021-08 11:21: 07 Yes 300mg Take 300 mg by mouth 2 (two) times daily. [facility] gabapentin 300 mg capsule 2021-08 11:21: 07 Yes 300mg Take 300 mg by mouth 2 (two) times daily. [facility] gabapentin 300 mg capsule 2021-08 11:21: 07 Yes 300mg Take 300 mg by mouth 2 (two) times daily. [facility] gabapentin 300 mg capsule 2021-08 11:21: 07 Yes 300mg Take 300 mg by mouth 2 (two) times daily. [facility] gabapentin 300 mg capsule 2021-08 11:21: 07 Yes 300mg Take 300 mg by mouth 2 (two) times daily. [facility] mometasone/ formoterol (DULERA INHALE) 2021-08 11:19: 44 Yes Inhale. [facility] mometasone/ formoterol (DULERA INHALE) 2021-08 11:19: [address] [facility] mometasone/ formoterol (DULERA INHALE) 2021-08 0-20 11:19: [address] [facility] mometasone/ formoterol (DULERA INHALE) 2021-08 0-20 11:19: [address] [facility] mometasone/ formoterol (DULERA INHALE) 2021-08 0-20 11:19: [address] [facility] mometasone/ formoterol (DULERA INHALE) 2021-08 0-20 11:19: [address] [facility] mometasone/ formoterol (DULERA INHALE) 2021-08 0- 11:19: [address] [facility] mometasone/ formoterol (DULERA INHALE) 2021-08 0- 11:19: [address] [facility] mometasone/ formoterol (DULERA INHALE) 2021-08 0-20 11:19: [address] [facility] mometasone/ formoterol (DULERA INHALE) 2021-08 0-20 11:19: [address] [facility] mometasone/ formoterol (DULERA INHALE) 2021-08 0-20 11:19: [address] [facility] mometasone/ formoterol (DULERA INHALE) 2021-08 0-20 11:19: [address] [facility] mometasone/ formoterol (DULERA INHALE) 2021-08 0-20 11:19: [address] [facility] mometasone/ formoterol (DULERA INHALE) 2021-08 0-20 11:19: [address] [facility] mometasone/ formoterol (DULERA INHALE) 2021-08 0-20 11:19: [address] [facility] mometasone/ formoterol (DULERA INHALE) 2021-08 0-20 11:19: [address] [facility] mometasone/ formoterol (DULERA INHALE) 2021-08 0-20 11:19: [address] [facility] mometasone/ formoterol (DULERA INHALE) 2021-08 0-20 11:19: [address] [facility] mometasone/ formoterol (DULERA INHALE) 2021-08 0-20 11:19: [address] [facility] mometasone/ formoterol (DULERA INHALE) 2021-08 0-20 11:19: [address] [facility] mometasone/ formoterol (DULERA INHALE) 2021-08 0-20 11:19: [address] [facility] mometasone/ formoterol (DULERA INHALE) 2021-08 0-20 11:19: [address] [facility] mometasone/ formoterol (DULERA INHALE) 2021-08 0-20 11:19: [address] [facility] mometasone/ formoterol (DULERA INHALE) 2021-08 0-20 11:19: [address] [facility]ULERA [facility]) 2021-08 0-20 11:19: [address] [facility] mometasone/ formoterol (DULERA INHALE) 2021-08 0-20 11:19: [address] [facility] mometasone/ formoterol (DULERA INHALE) 2021-08 0-20 11:19: [address] [facility] mometasone/ formoterol (DULERA INHALE) 2021-08 0-20 11:19: [address] [facility] mometasone/ formoterol (DULERA INHALE) 2021-08 0-20 11:19: [address] [facility] mometasone/ formoterol (DULERA INHALE) 2021-08 0-20 11:19: [address] [facility] mometasone/ formoterol (DULERA INHALE) 2021-08 0-20 11:19: [address] [facility] mometasone/ formoterol (DULERA INHALE) 2021-08 0-20 11:19: [address] [facility] mometasone/ formoterol (DULERA INHALE) 2021-08 0-20 11:19: [address] [facility] mometasone/ formoterol (DULERA INHALE) 2021-08 0- 11:19: [address] [facility] mometasone/ formoterol (DULERA INHALE) 2021-08 0- 11:19: [address] [facility] mometasone/ formoterol (DULERA INHALE) 2021-08 0-20 11:19: [address] [facility] mometasone/ formoterol (DULERA INHALE) 2021-08 0-20 11:19: [address] [facility] mometasone/ formoterol (DULERA INHALE) 2021-08 0-20 11:19: [address] [facility] mometasone/ formoterol (DULERA INHALE) 2021-08 0-20 11:19: [address] [facility] mometasone/ formoterol (DULERA INHALE) 2021-08 0-20 11:19: [address] [facility] mometasone/ formoterol (DULERA INHALE) 2021-08 0-20 11:19: [address] [facility] mometasone/ formoterol (DULERA INHALE) 2021-08 0-20 11:19: [address] [facility] mometasone/ formoterol (DULERA INHALE) 2021-08 11:19: 44 Yes Inhale. [facility] mometasone/ formoterol (DULERA INHALE) 2021-08 0 11:19: 44 Yes Inhale. [facility] mometasone/ formoterol (DULERA INHALE) 2021-08 0 11:19: 44 Yes Inhale. [facility] mometasone/ formoterol (DULERA INHALE) 2021-08 0 11:19: 44 Yes Inhale. [facility] mometasone/ formoterol (DULERA INHALE) 2021-08 0 11:19: 44 Yes Inhale. [facility] oxyCODONE-a cetaminophe n 7.5-325 mg per tablet 2021-08 0 00:00: 00 Yes 1{tbl} Take 1 tablet by mouth in the morning and 1 tablet in the evening. [facility] oxyCODONE-a cetaminophe n 7.5-325 mg per tablet 2021-08 0 00:00: 00 Yes 1{tbl} Take 1 tablet by mouth in the morning and 1 tablet in the evening. [facility] oxyCODONE-a cetaminophe n 7.5-325 mg per tablet 2021-08 00:00: 00 Yes 1{tbl} Take 1 tablet by mouth in the morning and 1 tablet in the evening. [facility] oxyCODONE-a cetaminophe n 7.5-325 mg per tablet 2021-08 005 00:00: 00 Yes 1{tbl} Take 1 tablet by mouth in the morning and 1 tablet in the evening. [facility] oxyCODONE-a cetaminophe n 7.5-325 mg per tablet 2021-08 005 00:00: 00 Yes 1{tbl} Take 1 tablet by mouth every 8 (eight) hours as needed. [facility] oxyCODONE-a cetaminophe n 7.5-325 mg per tablet 2021-08 0-05 00:00: 00 Yes 1{tbl} Take 1 tablet by mouth every 8 (eight) hours as needed. [facility] oxyCODONE-a cetaminophe n 7.5-325 mg per tablet 2021-08 0 00:00: 00 Yes 1{tbl} Take 1 tablet by mouth every 8 (eight) hours as needed. [facility] oxyCODONE-a cetaminophe n 7.5-325 mg per tablet 2021-08 0 00:00: 00 Yes 1{tbl} Take 1 tablet by mouth every 8 (eight) hours as needed. [facility] oxyCODONE-a cetaminophe n 7.5-325 mg per tablet 2021-08 0 00:00: 00 Yes 1{tbl} Take 1 tablet by mouth every 8 (eight) hours as needed. [facility] [facility] oxyCODONE-a cetaminophe n 7.5-325 mg per tablet 2021-08 0 00:00: 00 Yes 1{tbl} Take 1 tablet by mouth every 8 (eight) hours as needed. [facility] oxyCODONE-a cetaminophe n 7.5-325 mg per tablet 2021-08 0 00:00: 00 Yes 1{tbl} Take 1 tablet by mouth every 8 (eight) hours as needed. [facility] oxyCODONE-a cetaminophe n 7.5-325 mg per tablet 2021-08 0 00:00: 00 Yes 1{tbl} Take 1 tablet by mouth every 8 (eight) hours as needed. [facility] oxyCODONE-a cetaminophe n 7.5-325 mg per tablet 2021-08 005 00:00: 00 Yes 1{tbl} Take 1 tablet by mouth every 8 (eight) hours as needed. [facility] oxyCODONE-a cetaminophe n 7.5-325 mg per tablet 2021-08 005 00:00: 00 Yes 1{tbl} Take 1 tablet by mouth every 8 (eight) hours as needed. [facility] oxyCODONE-a cetaminophe n 7.5-325 mg per tablet 2021-08 005 00:00: 00 Yes 1{tbl} Take 1 tablet by mouth every 8 (eight) hours as needed. [facility] oxyCODONE-a cetaminophe n 7.5-325 mg per tablet 2021-08 0 00:00: 00 Yes 1{tbl} Take 1 tablet by mouth every 8 (eight) hours as needed. [facility] oxyCODONE-a cetaminophe n 7.5-325 mg per tablet 2021-08 0 00:00: 00 Yes 1{tbl} Take 1 tablet by mouth every 8 (eight) hours as needed. [facility] oxyCODONE-a cetaminophe n 7.5-325 mg per tablet 2021-08 0 00:00: 00 Yes 1{tbl} Take 1 tablet by mouth every 8 (eight) hours as needed. [facility] oxyCODONE-a cetaminophe n 7.5-325 mg per tablet 2021-08 0 00:00: 00 Yes 1{tbl} Take 1 tablet by mouth every 8 (eight) hours as needed. [facility] oxyCODONE-a cetaminophe n 7.5-325 mg per tablet 2021-08 0 00:00: 00 Yes 1{tbl} Take 1 tablet by mouth every 8 (eight) hours as needed. [facility] oxyCODONE-a cetaminophe n 7.5-325 mg per tablet 2021-08 0 00:00: 00 Yes 1{tbl} Take 1 tablet by mouth every 8 (eight) hours as needed. [facility] oxyCODONE-a cetaminophe n 7.5-325 mg per tablet 2021-08 005 00:00: 00 Yes 1{tbl} Take 1 tablet by mouth every 8 (eight) hours as needed. [facility] oxyCODONE-a cetaminophe n 7.5-325 mg per tablet 2021-08 005 00:00: 00 Yes 1{tbl} Take 1 tablet by mouth every 8 (eight) hours as needed. [facility] oxyCODONE-a cetaminophe n 7.5-325 mg per tablet 2021-08 005 00:00: 00 Yes 1{tbl} Take 1 tablet by mouth every 8 (eight) hours as needed. [facility] oxyCODONE-a cetaminophe n 7.5-325 mg per tablet 2021-08 005 00:00: 00 Yes 1{tbl} Take 1 tablet by mouth every 8 (eight) hours as needed. [facility] oxyCODONE-a cetaminophe n 7.5-325 mg per tablet 2021-08 005 00:00: 00 Yes 1{tbl} Take 1 tablet by mouth every 8 (eight) hours as needed. [facility] oxyCODONE-a cetaminophe n 7.5-325 mg per tablet 2021-08 0 00:00: 00 Yes 1{tbl} Take 1 tablet by mouth every 8 (eight) hours as needed. [facility] oxyCODONE-a cetaminophe n 7.5-325 mg per tablet 2021-08 005 00:00: 00 Yes 1{tbl} Take 1 tablet by mouth every 8 (eight) hours as needed. [facility] oxyCODONE-a cetaminophe n 7.5-325 mg per tablet 2021-08 005 00:00: 00 Yes 1{tbl} Take 1 tablet by mouth in the morning and 1 tablet in the evening. [facility] oxyCODONE-a cetaminophe n 7.5-325 mg per tablet 2021-08 0-05 00:00: 00 Yes 1{tbl} Take 1 tablet by mouth in the morning and 1 tablet in the evening. [facility] oxyCODONE-a cetaminophe n 7.5-325 mg per tablet 2021-08 0-05 00:00: 00 Yes 1{tbl} Take 1 tablet by mouth in the morning and 1 tablet in the evening. [facility] oxyCODONE-a cetaminophe n 7.5-325 mg per tablet 2021-08 00:00: 00 Yes 1{tbl} Take 1 tablet by mouth in the morning and 1 tablet in the evening. [facility] oxyCODONE-a cetaminophe n 7.5-325 mg per tablet 2021-08 00:00: 00 Yes 1{tbl} Take 1 tablet by mouth in the morning and 1 tablet in the evening. [facility] oxyCODONE-a cetaminophe n 7.5-325 mg per tablet 2021-08 00:00: 00 Yes 1{tbl} Take 1 tablet by mouth in the morning and 1 tablet in the evening. [facility] oxyCODONE-a cetaminophe n 7.5-325 mg per tablet 2021-08 00:00: 00 Yes 1{tbl} Take 1 tablet by mouth in the morning and 1 tablet in the evening. [facility] oxyCODONE-a cetaminophe n 7.5-325 mg per tablet 2021-08 00:00: 00 Yes 1{tbl} Take 1 tablet by mouth in the morning and 1 tablet in the evening. [facility] oxyCODONE-a cetaminophe n 7.5-325 mg per tablet 2021-08 00:00: 00 Yes 1{tbl} Take 1 tablet by mouth in the morning and 1 tablet in the evening. [facility] oxyCODONE-a cetaminophe n 7.5-325 mg per tablet 2021-08 00:00: 00 Yes 1{tbl} Take 1 tablet by mouth in the morning and 1 tablet in the evening. [facility] oxyCODONE-a cetaminophe n 7.5-325 mg per tablet 2021-08 00:00: 00 Yes 1{tbl} Take 1 tablet by mouth in the morning and 1 tablet in the evening. [facility] oxyCODONE-a cetaminophe n 7.5-325 mg per tablet 2021-08 00:00: 00 Yes 1{tbl} Take 1 tablet by mouth in the morning and 1 tablet in the evening. [facility] oxyCODONE-a cetaminophe n 7.5-325 mg per tablet 2021-08 0 00:00: 00 Yes 1{tbl} Take 1 tablet by mouth in the morning and 1 tablet in the evening. [facility] oxyCODONE-a cetaminophe n 7.5-325 mg per tablet 2021-08 0 00:00: 00 Yes 1{tbl} Take 1 tablet by mouth in the morning and 1 tablet in the evening. [facility] oxyCODONE-a cetaminophe n 7.5-325 mg per tablet 2021-08 0 00:00: 00 Yes 1{tbl} Take 1 tablet by mouth in the morning and 1 tablet in the evening. [facility] oxyCODONE-a cetaminophe n 7.5-325 mg per tablet 2021-08 0 00:00: 00 Yes 1{tbl} Take 1 tablet by mouth in the morning and 1 tablet in the evening. [facility] oxyCODONE-a cetaminophe n 7.5-325 mg per tablet 2021-08 0 00:00: 00 Yes 1{tbl} Take 1 tablet by mouth in the morning and 1 tablet in the evening. [facility] oxyCODONE-a cetaminophe n 7.5-325 mg per tablet 2021-08 0 00:00: 00 Yes 1{tbl} Take 1 tablet by mouth in the morning and 1 tablet in the evening. [facility] oxyCODONE-a cetaminophe n 7.5-325 mg per tablet 2021-08 005 00:00: 00 Yes 1{tbl} Take 1 tablet by mouth in the morning and 1 tablet in the evening. [facility] oxyCODONE-a cetaminophe n 7.5-325 mg per tablet 2021-08 0-05 00:00: 00 Yes 1{tbl} Take 1 tablet by mouth in the morning and 1 tablet in the evening. [facility] oxyCODONE-a cetaminophe n 7.5-325 mg per tablet 2021-08 00:00: 00 Yes 1{tbl} Take 1 tablet by mouth in the morning and 1 tablet in the evening. [facility] oxyCODONE-a cetaminophe n 7.5-325 mg per tablet 2021-08 00:00: 00 Yes 1{tbl} Take 1 tablet by mouth in the morning and 1 tablet in the evening. [facility] oxyCODONE-a cetaminophe n 7.5-325 mg per tablet 2021-08 00:00: 00 Yes 1{tbl} Take 1 tablet by mouth in the morning and 1 tablet in the evening. [facility] oxyCODONE-a cetaminophe n 7.5-325 mg per tablet 2021-08 00:00: 00 Yes 1{tbl} Take 1 tablet by mouth in the morning and 1 tablet in the evening. [facility] oxyCODONE-a cetaminophe n 7.5-325 mg per tablet 2021-08 00:00: 00 Yes 1{tbl} Take 1 tablet by mouth in the morning and 1 tablet in the evening. [facility] oxyCODONE-a cetaminophe n 7.5-325 mg per tablet 2021-08 00:00: 00 Yes 1{tbl} Take 1 tablet by mouth in the morning and 1 tablet in the evening. [facility] oxyCODONE-a cetaminophe n 7.5-325 mg per tablet 2021-08 00:00: 00 Yes 1{tbl} Take 1 tablet by mouth in the morning and 1 tablet in the evening. [facility] oxyCODONE-a cetaminophe n 7.5-325 mg per tablet 2021-08 0 00:00: 00 Yes 1{tbl} Take 1 tablet by mouth in the morning and 1 tablet in the evening. [facility] oxyCODONE-a cetaminophe n 7.5-325 mg per tablet 2021-08 00:00: 00 Yes 1{tbl} Take 1 tablet by mouth in the morning and 1 tablet in the evening. [facility] oxyCODONE-a cetaminophe n 7.5-325 mg per tablet 2021-08 0 00:00: 00 Yes 1{tbl} Take 1 tablet by mouth in the morning and 1 tablet in the evening. [facility] oxyCODONE-a cetaminophe n 7.5-325 mg per tablet 2021-08 0 00:00: 00 Yes 1{tbl} Take 1 tablet by mouth in the morning and 1 tablet in the evening. [facility] oxyCODONE-a cetaminophe n 7.5-325 mg per tablet 2021-08 0 00:00: 00 Yes 1{tbl} Take 1 tablet by mouth in the morning and 1 tablet in the evening. [facility] oxyCODONE-a cetaminophe n 7.5-325 mg per tablet 2021-08 0 00:00: 00 Yes 1{tbl} Take 1 tablet by mouth in the morning and 1 tablet in the evening. [facility] oxyCODONE-a cetaminophe n 7.5-325 mg per tablet 2021-08 0 00:00: 00 Yes 1{tbl} Take 1 tablet by mouth in the morning and 1 tablet in the evening. [facility] oxyCODONE-a cetaminophe n 7.5-325 mg per tablet 2021-08 0 00:00: 00 Yes 1{tbl} Take 1 tablet by mouth in the morning and 1 tablet in the evening. [facility] oxyCODONE-a cetaminophe n 7.5-325 mg per tablet 2021-08 0 00:00: 00 Yes 1{tbl} Take 1 tablet by mouth in the morning and 1 tablet in the evening. [facility] oxyCODONE-a cetaminophe n 7.5-325 mg per tablet 2021-08 0 00:00: 00 Yes 1{tbl} Take 1 tablet by mouth in the morning and 1 tablet in the evening. [facility] oxyCODONE-a cetaminophe n 7.5-325 mg per tablet 2021-08 00:00: 00 Yes 1{tbl} Take 1 tablet by mouth in the morning and 1 tablet in the evening. [facility] oxyCODONE-a cetaminophe n 7.5-325 mg per tablet 2021-08 00:00: 00 Yes 1{tbl} Take 1 tablet by mouth in the morning and 1 tablet in the evening. [facility] oxyCODONE-a cetaminophe n 7.5-325 mg per tablet 2021-08 00:00: 00 Yes 1{tbl} Take 1 tablet by mouth in the morning and 1 tablet in the evening. [facility] oxyCODONE-a cetaminophe n 7.5-325 mg per tablet 2021-08 00:00: 00 Yes 1{tbl} Take 1 tablet by mouth in the morning and 1 tablet in the evening. [facility] oxyCODONE-a cetaminophe n 7.5-325 mg per tablet 2021-08 00:00: 00 Yes 1{tbl} Take 1 tablet by mouth in the morning and 1 tablet in the evening. [facility] oxyCODONE-a cetaminophe n 7.5-325 mg per tablet 2021-08 00:00: 00 Yes 1{tbl} Take 1 tablet by mouth in the morning and 1 tablet in the evening. [facility] oxyCODONE-a cetaminophe n 7.5-325 mg per tablet 2021-08 00:00: 00 Yes 1{tbl} Take 1 tablet by mouth in the morning and 1 tablet in the evening. [facility] oxyCODONE-a cetaminophe n 7.5-325 mg per tablet 2021-08 0 00:00: 00 Yes 1{tbl} Take 1 tablet by mouth in the morning and 1 tablet in the evening. [facility] oxyCODONE-a cetaminophe n 7.5-325 mg per tablet 2021-08 00:00: 00 Yes 1{tbl} Take 1 tablet by mouth in the morning and 1 tablet in the evening. [facility] oxyCODONE-a cetaminophe n 7.5-325 mg per tablet 2021-08 0 00:00: 00 Yes 1{tbl} Take 1 tablet by mouth in the morning and 1 tablet in the evening. [facility] oxyCODONE-a cetaminophe n 7.5-325 mg per tablet 2021-08 0 00:00: 00 Yes 1{tbl} Take 1 tablet by mouth in the morning and 1 tablet in the evening. [facility] oxyCODONE-a cetaminophe n 7.5-325 mg per tablet 2021-08 00:00: 00 Yes 1{tbl} Take 1 tablet by mouth in the morning and 1 tablet in the evening. [facility] oxyCODONE-a cetaminophe n 7.5-325 mg per tablet 2021-08 00:00: 00 Yes 1{tbl} Take 1 tablet by mouth in the morning and 1 tablet in the evening. [facility] TAKE 1 TABLET 3 TIMES DAILY NEEDED. 03-05 00:00: 00 No 10 TAKE 1 TABLET 3 TIMES DAILY NEEDED. 03-05 00:00: 00 No 10 TAKE 1 TABLET DAILY. 03-03 00:00: 00 No 50 TAKE 1 TABLET DAILY. 03-03 00:00: 00 No 50 TAKE 1 TABLET DAILY. 03-03 00:00: 00 No 50 spironolact one 100 mg tablet 12-18 00:00: 00 03-19 04:59 :00 No [id number] 100mg Take 1 tablet by mouth daily for 90 days. [facility] mometasone/ formoterol (DULERA INHALE) 12-17 21:29: 50 Yes Inhale. [facility] aspirin 81 mg chewable tablet 12-17 21:29: 50 Yes 81mg Take 81 mg by mouth daily. [facility] gabapentin 300 mg capsule 12-17 21:29: 50 Yes 300mg Take 300 mg by mouth 2 (two) times daily. [facility] mometasone/ formoterol (DULERA INHALE) 12-17 21:29: 50 Yes Inhale. [facility] aspirin 81 mg chewable tablet 12-17 21:29: 50 Yes 81mg Take 81 mg by mouth daily. [facility] gabapentin 300 mg capsule 12-17 21:29: 50 Yes 300mg Take 300 mg by mouth 2 (two) times daily. [facility] mometasone/ formoterol (DULERA INHALE) 12-17 21:29: 50 Yes Inhale. [facility] aspirin 81 mg chewable tablet 12-17 21:29: 50 Yes 81mg Take 81 mg by mouth daily. [facility] gabapentin 300 mg capsule 12-17 21:29: 50 Yes 300mg Take 300 mg by mouth 2 (two) times daily. [facility] lactulose (CEPHULAC) solution 15 mL 12-17 17:00: 00 Yes 15mL 15 mL, Oral, QID, First dose (after last modificati on) on Maribell 12/17/21 at 1200, Until Discontinu ed, Routine [facility] furosemide (LASIX) 40 mg tablet 12-17 14:49: 22 12-17 00:00 :00 No 40mg Take 40 mg by mouth every morning and evening. [facility] torsemide (SOAANZ) tablet 80 mg 12-17 14:00: 00 Yes 80mg 80 mg, Oral, DAILY, First dose on Tue12/17/21 at 0900, Until Discontinu ed, Routine [facility] Dose Unknown 12-17 00:00: 00 No Dose Unknown 12-17 00:00: 00 No Dose Unknown 12-17 00:00: 00 No lactulose 10 gram/15 mL solution 12-17 00:00: 00 03-18 04:59 :00 No [id number] 15mL Take 15 mL by mouth 4 (four) times daily for 90 days. [facility] furosemide 40 mg tablet 12-17 00:00: 00 03-18 04:59 :00 No [id number] 60mg Take 1.5 tablets by mouth every morning and evening for 90 days. [facility] carvediloL 3.125 mg tablet 12-17 00:00: 00 03-18 04:59 :00 No [id number] 3.125mg Take 1 tablet by mouth 2 (two) times daily with meals for 90 days. [facility] triamcinolo ne acetonide 0.1 % ointment 12-17 00:00: 00 01-17 04:59 :00 No [id number] Apply to area(s) 2 (two) times daily for 30 days. [facility] carvedilol 1.25 mg/mL oral suspension 12-17 00:00: 00 12-17 00:00 :00 No [id number] 3.125mg Take 2.5 mL by mouth 2 (two) times daily with meals for 90 days. [facility] enoxaparin (LOVENOX) injection 40 mg 12-16 22:00: 00 Yes 40mg 40 mg, Subcutaneo us, DAILY, First dose on Tue12/16/21 at 1700, Until Discontinu ed, Routine [facility] mupirocin (BACTROBAN OINT) 2 % skin ointment 12-16 19:00: 00 Yes [facility] lactulose (CEPHULAC) solution 15 mL 12-16 19:00: 00 12-17 14:29 :17 No 15mL 15 mL, Oral, TID, First dose (after last modificati on) on Tue12/16/21 at 1400, Until Discontinu ed, [facility]SOAANZ[facility] tablet 60 mg 12-16 15:45: 00 12-16 15:50 :00 No 60mg 60 mg, Oral, ONCE NOW, 1 dose, On Tue12/16/21 at 1045, Routine [facility] triamcinolo ne acetonide (KENALOG) 0.1 % ointment 12-16 14:45: 00 Yes Topical, BID, First dose on Tue12/16/21 at 0945, Until Discontinu ed, Routine [facility] carvedilol (COREG) 1.25 mg/mL oral suspension 3.125 mg 12-16 14:30: 00 Yes 3.125mg 3.125 mg, Oral, BID MEALS, First dose on Tue12/16/21 at 0930, Until Discontinu ed, Routine [facility] spironolact one (ALDACTONE) tablet 100 mg 12-16 14:00: 00 Yes 100mg 100 mg, Oral, DAILY, First dose on Tue12/16/21 at 0900, Until Discontinu ed, Routine [facility] aspirin chewable tablet 81 mg 12-16 14:00: 00 Yes 81mg 81 mg, Oral, DAILY, First dose on Tue12/16/21 at 0900, Until Discontinu ed, Routine [facility] lactulose (CEPHULAC) solution 15 mL 12-16 14:00: 00 12-16 14:13 :06 No 15mL 15 mL, Oral, DAILY, First dose on Tue12/16/21 at 0900, Until Discontinu ed, Routine [facility] furosemide (LASIX) tablet 40 mg 12-16 14:00: 00 12-16 16:26 :55 No 40mg 40 mg, Oral, DAILY, First dose on Tue12/16/21 at 0900, Until Discontinu ed, Routine [facility] budesonide- formoteroL (SYMBICORT) 80-4.5 mcg/actuati on inhaler 2 Puff 12-16 13:00: 00 Yes 2{puff} 2 Puff, Inhalation , BID, First dose (after last modificati on) on Tue12/16/21 at 0800, Until Discontinu ed [facility] gabapentin (NEURONTIN) capsule 300 mg 12-16 13:00: 00 Yes 300mg 300 mg, Oral, BID, First dose on Tue12/16/21 at 0800, Until Discontinu ed, Routine [facility] ipratropium -albuteroL (DUONEB) 0.5 mg-3 mg(2.5 mg base)/3 mL nebulizer solution 3 mL 12-16 09:00: 00 Yes 3mL 3 mL, Inhalation , Q4H, First dose (after last modificati on) on Tue12/16/21 at 0400, Until Discontinu ed, Routine [facility] albuterol (PROVENTIL) 2.5 mg /3 mL (0.083 %) nebulizer solution 2.5 mg 12-16 08:29: 37 Yes 2.5mg 2.5 mg, Inhalation , Q6HPRN, Starting on Tue12/16/21 at 0329, Until Discontinu ed, Routine, Shortness of Breath, Wheezing [facility] acetaminoph en (TYLENOL) tablet 650 mg 12-16 08:02: 27 Yes 650mg 650 mg, Oral, Q6HPRN, Starting on Tue12/16/21 at 0302, Until Discontinu ed, Routine, Pain (scale 1-3) [facility] traMADoL (ULTRAM) tablet 50 mg 12-16 08:02: 27 12-18 08:01 :27 No 50mg 50 mg, Oral, Q8HPRN, Starting on Tue12/16/21 at 0302, Until Tue12/18/21 at 0301, Routine, Pain (scale 4-6) [facility] iohexol (OMNIPAQUE 350 BULK-100 mL) injection 80 mL 12-16 02:15: 00 12-16 02:15 :00 No [id number] 80mL 80 mL, Intravenou s, ONCE, 1 dose, On Tue12/15/21 at 2115, Routine [facility] furosemide (LASIX) injection 80 mg 12-16 02:00: 00 2022- 05-18 01:23 :00 No 80mg 80 mg, IV Push, ONCE, 1 dose, On Tue12/15/21 at 2100, [facility]Y [facility] aspirin tablet 325 mg 12-15 23:00: 00 12-15 22:47 :00 No 325mg 325 mg, Oral, ONCE, 1 dose, On Tue12/15/21 at 1800, STAT [facility] ipratropium -albuteroL (DUONEB) 0.5 mg-3 mg(2.5 mg base)/3 mL nebulizer solution 3 mL 12-15 21:48: 00 12-15 22:47 :00 No 3mL 3 mL, Inhalation , ONCE NOW, 1 dose, On Tue12/15/21 at 1700, [facility]Y [facility] sodium chloride (NS) injection 5 mL 12-15 21:28: 01 Yes 5mL 5 mL, Intravenou s, PRN, Starting on Tue12/15/21 at 1628, Until Discontinu ed, Routine, IV line flushing [facility] azithromyci n (ZITHROMAX) tablet 500 mg 11-06 13:00: 00 11-07 00:59 :00 No 500mg 500 mg, Oral, ONCE, 1 dose, On Tue11/06/21 at 0800, Routine
Reason for Anti-Infec tive: Empiric Therapy for Suspected Infection< br>Empiric Therapy Site: Respirator y
Durat ion of therapy: 72 hours [facility] albuterol 2.5 mg /3 mL (0.083 %) nebulizer solution 08 00:00: 00 Yes [id number] 2.5mg Inhale 3 mL every 4 (four) hours as needed for Wheezing or Shortness of Breath. [facility] albuterol 2.5 mg /3 mL (0.083 %) nebulizer solution 08 00:00: 00 Yes [id number] 2.5mg Inhale 3 mL every 4 (four) hours as needed for Wheezing or Shortness of Breath. [facility] albuterol 2.5 mg /3 mL (0.083 %) nebulizer solution 11-06 00:00: 00 Yes [id number] 2.5mg Inhale 3 mL every 4 (four) hours as needed for Wheezing or Shortness of Breath. [facility] albuterol 2.5 mg /3 mL (0.083 %) nebulizer solution 11-06 00:00: 00 Yes [id number] 2.5mg Inhale 3 mL every 4 (four) hours as needed for Wheezing or Shortness of Breath. [facility] albuterol 2.5 mg /3 mL (0.083 %) nebulizer solution 11-06 00:00: 00 Yes [id number] 2.5mg Inhale 3 mL every 4 (four) hours as needed for Wheezing or Shortness of Breath. [facility] albuterol 2.5 mg /3 mL (0.083 %) nebulizer solution 11-06 00:00: 00 Yes [id number] 2.5mg Inhale 3 mL every 4 (four) hours as needed for Wheezing or Shortness of Breath. [facility] albuterol 2.5 mg /3 mL (0.083 %) nebulizer solution 11-06 00:00: 00 Yes [id number] 2.5mg Inhale 3 mL every 4 (four) hours as needed for Wheezing or Shortness of Breath. [facility] albuterol 2.5 mg /3 mL (0.083 %) nebulizer solution 11-06 00:00: 00 Yes [id number] 2.5mg Inhale 3 mL every 4 (four) hours as needed for Wheezing or Shortness of Breath. [facility] albuterol 2.5 mg /3 mL (0.083 %) nebulizer solution 11-06 00:00: 00 Yes [id number] 2.5mg Inhale 3 mL every 4 (four) hours as needed for Wheezing or Shortness of Breath. [facility] albuterol 2.5 mg /3 mL (0.083 %) nebulizer solution 11-06 00:00: 00 Yes [id number] 2.5mg Inhale 3 mL every 4 (four) hours as needed for Wheezing or Shortness of Breath. [facility] albuterol 2.5 mg /3 mL (0.083 %) nebulizer solution 11-06 00:00: 00 Yes [id number] 2.5mg Inhale 3 mL every 4 (four) hours as needed for Wheezing or Shortness of Breath. [facility] albuterol 2.5 mg /3 mL (0.083 %) nebulizer solution 11-06 00:00: 00 Yes [id number] 2.5mg Inhale 3 mL every 4 (four) hours as needed for Wheezing or Shortness of Breath. [facility] albuterol 2.5 mg /3 mL (0.083 %) nebulizer solution 11-06 00:00: 00 Yes [id number] 2.5mg Inhale 3 mL every 4 (four) hours as needed for Wheezing or Shortness of Breath. [facility] albuterol 2.5 mg /3 mL (0.083 %) nebulizer solution 11-06 00:00: 00 Yes [id number] 2.5mg Inhale 3 mL every 4 (four) hours as needed for Wheezing or Shortness of Breath. [facility] albuterol 2.5 mg /3 mL (0.083 %) nebulizer solution 11-06 00:00: 00 Yes [id number] 2.5mg Inhale 3 mL every 4 (four) hours as needed for Wheezing or Shortness of Breath. [facility] albuterol 2.5 mg /3 mL (0.083 %) nebulizer solution 11-06 00:00: 00 Yes [id number] 2.5mg Inhale 3 mL every 4 (four) hours as needed for Wheezing or Shortness of Breath. [facility] albuterol 2.5 mg /3 mL (0.083 %) nebulizer solution 11-06 00:00: 00 Yes [id number] 2.5mg Inhale 3 mL every 4 (four) hours as needed for Wheezing or Shortness of Breath. [facility] [place] [facility] albuterol 2.5 mg /3 mL (0.083 %) nebulizer solution 11-06 00:00: 00 Yes [id number] 2.5mg Inhale 3 mL every 4 (four) hours as needed for Wheezing or Shortness of Breath. [facility] albuterol 2.5 mg /3 mL (0.083 %) nebulizer solution 11-06 00:00: 00 Yes [id number] 2.5mg Inhale 3 mL every 4 (four) hours as needed for Wheezing or Shortness of Breath. [facility] albuterol 2.5 mg /3 mL (0.083 %) nebulizer solution 11-06 00:00: 00 Yes [id number] 2.5mg Inhale 3 mL every 4 (four) hours as needed for Wheezing or Shortness of Breath. [facility] albuterol 2.5 mg /3 mL (0.083 %) nebulizer solution 11-06 00:00: 00 Yes [id number] 2.5mg Inhale 3 mL every 4 (four) hours as needed for Wheezing or Shortness of Breath. [facility] albuterol 2.5 mg /3 mL (0.083 %) nebulizer solution 11-06 00:00: 00 Yes [id number] 2.5mg Inhale 3 mL every 4 (four) hours as needed for Wheezing or Shortness of Breath. [facility] albuterol 2.5 mg /3 mL (0.083 %) nebulizer solution 11-06 00:00: 00 Yes [id number] 2.5mg Inhale 3 mL every 4 (four) hours as needed for Wheezing or Shortness of Breath. [facility] albuterol 2.5 mg /3 mL (0.083 %) nebulizer solution 11-06 00:00: 00 Yes [id number] 2.5mg Inhale 3 mL every 4 (four) hours as needed for Wheezing or Shortness of Breath. [facility] albuterol 2.5 mg /3 mL (0.083 %) nebulizer solution 11-06 00:00: 00 Yes [id number] 2.5mg Inhale 3 mL every 4 (four) hours as needed for Wheezing or Shortness of Breath. [facility] albuterol 2.5 mg /3 mL (0.083 %) nebulizer solution 11-06 00:00: 00 Yes [id number] 2.5mg Inhale 3 mL every 4 (four) hours as needed for Wheezing or Shortness of Breath. [facility] albuterol 2.5 mg /3 mL (0.083 %) nebulizer solution 11-06 00:00: 00 Yes [id number] 2.5mg Inhale 3 mL every 4 (four) hours as needed for Wheezing or Shortness of Breath. [facility] albuterol 2.5 mg /3 mL (0.083 %) nebulizer solution 11-06 00:00: 00 Yes [id number] 2.5mg Inhale 3 mL every 4 (four) hours as needed for Wheezing or Shortness of Breath. [facility] albuterol 2.5 mg /3 mL (0.083 %) nebulizer solution 11-06 00:00: 00 Yes [id number] 2.5mg Inhale 3 mL every 4 (four) hours as needed for Wheezing or Shortness of Breath. [facility] /3 mL (0.083 %) nebulizer solution 11-06 00:00: 00 Yes [id number] 2.5mg Inhale 3 mL every 4 (four) hours as needed for Wheezing or Shortness of Breath. [facility] albuterol 2.5 mg /3 mL (0.083 %) nebulizer solution 11-06 00:00: 00 Yes [id number] 2.5mg Inhale 3 mL every 4 (four) hours as needed for Wheezing or Shortness of Breath. [facility] albuterol 2.5 mg /3 mL (0.083 %) nebulizer solution 11-06 00:00: 00 Yes [id number] 2.5mg Inhale 3 mL every 4 (four) hours as needed for Wheezing or Shortness of Breath. [facility] albuterol 2.5 mg /3 mL (0.083 %) nebulizer solution 11-06 00:00: 00 Yes [id number] 2.5mg Inhale 3 mL every 4 (four) hours as needed for Wheezing or Shortness of Breath. [facility] [place] [facility] albuterol 2.5 mg /3 mL (0.083 %) nebulizer solution 11-06 00:00: 00 Yes [id number] 2.5mg Inhale 3 mL every 4 (four) hours as needed for Wheezing or Shortness of Breath. [facility] albuterol 2.5 mg /3 mL (0.083 %) nebulizer solution 11-06 00:00: 00 Yes [id number] 2.5mg Inhale 3 mL every 4 (four) hours as needed for Wheezing or Shortness of Breath. [facility] albuterol 2.5 mg /3 mL (0.083 %) nebulizer solution 11-06 00:00: 00 Yes [id number] 2.5mg Inhale 3 mL every 4 (four) hours as needed for Wheezing or Shortness of Breath. [facility] albuterol 2.5 mg /3 mL (0.083 %) nebulizer solution 11-06 00:00: 00 Yes [id number] 2.5mg Inhale 3 mL every 4 (four) hours as needed for Wheezing or Shortness of Breath. [facility] albuterol 2.5 mg /3 mL (0.083 %) nebulizer solution 11-06 00:00: 00 Yes [id number] 2.5mg Inhale 3 mL every 4 (four) hours as needed for Wheezing or Shortness of Breath. [facility] albuterol 2.5 mg /3 mL (0.083 %) nebulizer solution 11-06 00:00: 00 Yes [id number] 2.5mg Inhale 3 mL every 4 (four) hours as needed for Wheezing or Shortness of Breath. [facility] albuterol 2.5 mg /3 mL (0.083 %) nebulizer solution 11-06 00:00: 00 Yes [id number] 2.5mg Inhale 3 mL every 4 (four) hours as needed for Wheezing or Shortness of Breath. [facility] albuterol 2.5 mg /3 mL (0.083 %) nebulizer solution 11-06 00:00: 00 Yes [id number] 2.5mg Inhale 3 mL every 4 (four) hours as needed for Wheezing or Shortness of Breath. [facility] albuterol 2.5 mg /3 mL (0.083 %) nebulizer solution 11-06 00:00: 00 Yes [id number] 2.5mg Inhale 3 mL every 4 (four) hours as needed for Wheezing or Shortness of Breath. [facility] albuterol 2.5 mg /3 mL (0.083 %) nebulizer solution 11-06 00:00: 00 Yes [id number] 2.5mg Inhale 3 mL every 4 (four) hours as needed for Wheezing or Shortness of Breath. [facility] albuterol 2.5 mg /3 mL (0.083 %) nebulizer solution 11-06 00:00: 00 Yes [id number] 2.5mg Inhale 3 mL every 4 (four) hours as needed for Wheezing or Shortness of Breath. [facility] albuterol 2.5 mg /3 mL (0.083 %) nebulizer solution 11-06 00:00: 00 Yes [id number] 2.5mg Inhale 3 mL every 4 (four) hours as needed for Wheezing or Shortness of Breath. [facility] albuterol 2.5 mg /3 mL (0.083 %) nebulizer solution 11-06 00:00: 00 Yes [id number] 2.5mg Inhale 3 mL every 4 (four) hours as needed for Wheezing or Shortness of Breath. [facility] albuterol 2.5 mg /3 mL (0.083 %) nebulizer solution 11-06 00:00: 00 Yes [id number] 2.5mg Inhale 3 mL every 4 (four) hours as needed for Wheezing or Shortness of Breath. [facility] albuterol 2.5 mg /3 mL (0.083 %) nebulizer solution 11-06 00:00: 00 Yes [id number] 2.5mg Inhale 3 mL every 4 (four) hours as needed for Wheezing or Shortness of Breath. [facility] albuterol 2.5 mg /3 mL (0.083 %) nebulizer solution 11-06 00:00: 00 Yes [id number] 2.5mg Inhale 3 mL every 4 (four) hours as needed for Wheezing or Shortness of Breath. [facility] albuterol 2.5 mg /3 mL (0.083 %) nebulizer solution 11-06 00:00: 00 Yes [id number] 2.5mg Inhale 3 mL every 4 (four) hours as needed for Wheezing or Shortness of Breath. [facility] albuterol 2.5 mg /3 mL (0.083 %) nebulizer solution 11-06 00:00: 00 Yes [id number] 2.5mg Inhale 3 mL every 4 (four) hours as needed for Wheezing or Shortness of Breath. [facility] albuterol 2.5 mg /3 mL (0.083 %) nebulizer solution 11-06 00:00: 00 Yes [id number] 2.5mg Inhale 3 mL every 4 (four) hours as needed for Wheezing or Shortness of Breath. [facility] albuterol 2.5 mg /3 mL (0.083 %) nebulizer solution 11-06 00:00: 00 Yes [id number] 2.5mg Inhale 3 mL every 4 (four) hours as needed for Wheezing or Shortness of Breath. [facility] albuterol 2.5 mg /3 mL (0.083 %) nebulizer solution 11-06 00:00: 00 Yes [id number] 2.5mg Inhale 3 mL every 4 (four) hours as needed for Wheezing or Shortness of Breath. [facility] albuterol 2.5 mg /3 mL (0.083 %) nebulizer solution 11-06 00:00: 00 Yes [id number] 2.5mg Inhale 3 mL every 4 (four) hours as needed for Wheezing or Shortness of Breath. [facility] albuterol 2.5 mg /3 mL (0.083 %) nebulizer solution 11-06 00:00: 00 Yes [id number] 2.5mg Inhale 3 mL every 4 (four) hours as needed for Wheezing or Shortness of Breath. [facility] albuterol 2.5 mg /3 mL (0.083 %) nebulizer solution 11-06 00:00: 00 Yes [id number] 2.5mg Inhale 3 mL every 4 (four) hours as needed for Wheezing or Shortness of Breath. [facility] albuterol 2.5 mg /3 mL (0.083 %) nebulizer solution 11-06 00:00: 00 Yes [id number] 2.5mg Inhale 3 mL every 4 (four) hours as needed for Wheezing or Shortness of Breath. [facility] albuterol 2.5 mg /3 mL (0.083 %) nebulizer solution 11-06 00:00: 00 Yes [id number] 2.5mg Inhale 3 mL every 4 (four) hours as needed for Wheezing or Shortness of Breath. [facility] albuterol 2.5 mg /3 mL (0.083 %) nebulizer solution 11-06 00:00: 00 Yes [id number] 2.5mg Inhale 3 mL every 4 (four) hours as needed for Wheezing or Shortness of Breath. [facility] albuterol 2.5 mg /3 mL (0.083 %) nebulizer solution 11-06 00:00: 00 Yes [id number] 2.5mg Inhale 3 mL every 4 (four) hours as needed for Wheezing or Shortness of Breath. [facility] albuterol 2.5 mg /3 mL (0.083 %) nebulizer solution 11-06 00:00: 00 Yes [id number] 2.5mg Inhale 3 mL every 4 (four) hours as needed for Wheezing or Shortness of Breath. [facility] albuterol 2.5 mg /3 mL (0.083 %) nebulizer solution 11-06 00:00: 00 Yes [id number] 2.5mg Inhale 3 mL every 4 (four) hours as needed for Wheezing or Shortness of Breath. [facility] albuterol 2.5 mg /3 mL (0.083 %) nebulizer solution 11-06 00:00: 00 Yes [id number] 2.5mg Inhale 3 mL every 4 (four) hours as needed for Wheezing or Shortness of Breath. [facility] albuterol 2.5 mg /3 mL (0.083 %) nebulizer solution 11-06 00:00: 00 Yes [id number] 2.5mg Inhale 3 mL every 4 (four) hours as needed for Wheezing or Shortness of Breath. [facility] albuterol 2.5 mg /3 mL (0.083 %) nebulizer solution 11-06 00:00: 00 Yes [id number] 2.5mg Inhale 3 mL every 4 (four) hours as needed for Wheezing or Shortness of Breath. [facility] albuterol 2.5 mg /3 mL (0.083 %) nebulizer solution 11-06 00:00: 00 Yes [id number] 2.5mg Inhale 3 mL every 4 (four) hours as needed for Wheezing or Shortness of Breath. [facility] albuterol 2.5 mg /3 mL (0.083 %) nebulizer solution 11-06 00:00: 00 Yes [id number] 2.5mg Inhale 3 mL every 4 (four) hours as needed for Wheezing or Shortness of Breath. [facility] albuterol 2.5 mg /3 mL (0.083 %) nebulizer solution 11-06 00:00: 00 Yes [id number] 2.5mg Inhale 3 mL every 4 (four) hours as needed for Wheezing or Shortness of Breath. [facility] albuterol 2.5 mg /3 mL (0.083 %) nebulizer solution 11-06 00:00: 00 Yes [id number] 2.5mg Inhale 3 mL every 4 (four) hours as needed for Wheezing or Shortness of Breath. [facility] albuterol 2.5 mg /3 mL (0.083 %) nebulizer solution 11-06 00:00: 00 Yes [id number] 2.5mg Inhale 3 mL every 4 (four) hours as needed for Wheezing or Shortness of Breath. [facility] albuterol 2.5 mg /3 mL (0.083 %) nebulizer solution 11-06 00:00: 00 Yes [id number] 2.5mg Inhale 3 mL every 4 (four) hours as needed for Wheezing or Shortness of Breath. [facility] albuterol 2.5 mg /3 mL (0.083 %) nebulizer solution 11-06 00:00: 00 Yes [id number] 2.5mg Inhale 3 mL every 4 (four) hours as needed for Wheezing or Shortness of Breath. [facility] albuterol 2.5 mg /3 mL (0.083 %) nebulizer solution 11-06 00:00: 00 Yes [id number] 2.5mg Inhale 3 mL every 4 (four) hours as needed for Wheezing or Shortness of Breath. [facility] albuterol 2.5 mg /3 mL (0.083 %) nebulizer solution 11-06 00:00: 00 Yes [id number] 2.5mg Inhale 3 mL every 4 (four) hours as needed for Wheezing or Shortness of Breath. [facility] albuterol 2.5 mg /3 mL (0.083 %) nebulizer solution 11-06 00:00: 00 Yes [id number] 2.5mg Inhale 3 mL every 4 (four) hours as needed for Wheezing or Shortness of Breath. [facility] albuterol 2.5 mg /3 mL (0.083 %) nebulizer solution 11-06 00:00: 00 Yes [id number] 2.5mg Inhale 3 mL every 4 (four) hours as needed for Wheezing or Shortness of Breath. [facility] albuterol 2.5 mg /3 mL (0.083 %) nebulizer solution 11-06 00:00: 00 Yes [id number] 2.5mg Inhale 3 mL every 4 (four) hours as needed for Wheezing or Shortness of Breath. [facility] albuterol 2.5 mg /3 mL (0.083 %) nebulizer solution 11-06 00:00: 00 Yes [id number] 2.5mg Inhale 3 mL every 4 (four) hours as needed for Wheezing or Shortness of Breath. [facility] albuterol 2.5 mg /3 mL (0.083 %) nebulizer solution 11-06 00:00: 00 Yes [id number] 2.5mg Inhale 3 mL every 4 (four) hours as needed for Wheezing or Shortness of Breath. [facility] albuterol 2.5 mg /3 mL (0.083 %) nebulizer solution 11-06 00:00: 00 Yes [id number] 2.5mg Inhale 3 mL every 4 (four) hours as needed for Wheezing or Shortness of Breath. [facility] ipratropium 0.02 % nebulizer solution 11-06 00:00: 00 12-16 00:00 :00 No [id number] .5mg Inhale 2.5 mL every 4 (four) hours as needed for Wheezing or Shortness of Breath. [facility] aspirin E.C. 325 mg EC tablet 11-06 00:00: 00 12-07 04:59 :00 No [id number] 325mg Take 1 tablet by mouth daily with breakfast for 30 days. [facility] cholecalcif tere, vitamin D3, 25 mcg (1,000 unit) tablet 11-06 00:00: 00 12-07 04:59 :00 No [id number] 2000U Take 2 tablets by mouth daily for 30 days. [facility] metoprolol succinate XL 25 mg 24 hr tablet 11-06 00:00: 00 12-07 04:59 :00 No [id number] 25mg Take 1 tablet by mouth daily for 30 days. [facility] aspirin E.C. 325 mg EC tablet 11-06 00:00: 00 12-07 04:59 :00 No [id number] 325mg Take 1 tablet by mouth daily with breakfast for 30 days. [facility] cholecalcif tere, vitamin D3, 25 mcg (1,000 unit) tablet 11-06 00:00: 00 12-07 04:59 :00 No [id number] 2000U Take 2 tablets by mouth daily for 30 days. [facility] metoprolol succinate XL 25 mg 24 hr tablet 11-06 00:00: 00 12-07 04:59 :00 No [id number] 25mg Take 1 tablet by mouth daily for 30 days. [facility] predniSONE 50 mg tablet 11-06 00:00: 00 11-10 04:59 :00 No [id number] 50mg Take 1 tablet by mouth every day at 1200 (noon) for 3 days. [facility] predniSONE 50 mg tablet 11-06 00:00: 00 11-10 04:59 :00 No [id number] 50mg Take 1 tablet by mouth every day at 1200 (noon) for 3 days. [facility] mometasone/ formoterol (DULERA INHALE) 11-05 18:48: 11 Yes Inhale. [facility] mometasone/ formoterol (DULERA INHALE) 11-05 18:48: 11 Yes Inhale. [facility] cholecalcif tere (vitamin D3) tablet 2,000 Units 11-05 15:00: 00 Yes 2000U 2,000 Units, Oral, DAILY, First dose on [place] 11/05/21 at 1000, Until Discontinu ed, Routine [facility] gabapentin 300 mg capsule 11-05 14:03: 31 11-05 00:00 :00 No 300mg Take 300 mg by mouth 2 (two) times daily. Unsure on dose [facility] ALBUTEROL INHALE 11-05 14:03: 31 11-05 00:00 :00 No Inhale. [facility] albuterol 90 mcg/actuati on inhaler 11-05 00:00: 00 Yes [id number] 2{puff} Inhale 2 Puffs every 6 (six) hours as needed for Wheezing or Shortness of Breath. [facility] albuterol 90 mcg/actuati on inhaler 11-05 00:00: 00 Yes [id number] 2{puff} Inhale 2 Puffs every 6 (six) hours as needed for Wheezing or Shortness of Breath. [facility] albuterol 90 mcg/actuati on inhaler 11-05 00:00: 00 Yes [id number] 2{puff} Inhale 2 Puffs every 6 (six) hours as needed for Wheezing or Shortness of Breath. [facility] albuterol 90 mcg/actuati on inhaler 11-05 00:00: 00 Yes [id number] 2{puff} Inhale 2 Puffs every 6 (six) hours as needed for Wheezing or Shortness of Breath. [facility] albuterol 90 mcg/actuati on inhaler 11-05 00:00: 00 Yes [id number] 2{puff} Inhale 2 Puffs every 6 (six) hours as needed for Wheezing or Shortness of Breath. [facility] albuterol 90 mcg/actuati on inhaler 11-05 00:00: 00 Yes [id number] 2{puff} Inhale 2 Puffs every 6 (six) hours as needed for Wheezing or Shortness of Breath. [facility] albuterol 90 mcg/actuati on inhaler 11-05 00:00: 00 Yes [id number] 2{puff} Inhale 2 Puffs every 6 (six) hours as needed for Wheezing or Shortness of Breath. [facility] albuterol 90 mcg/actuati on inhaler 11-05 00:00: 00 Yes [id number] 2{puff} Inhale 2 Puffs every 6 (six) hours as needed for Wheezing or Shortness of Breath. [facility] albuterol 90 mcg/actuati on inhaler 11-05 00:00: 00 Yes [id number] 2{puff} Inhale 2 Puffs every 6 (six) hours as needed for Wheezing or Shortness of Breath. [facility] albuterol 90 mcg/actuati on inhaler 11-05 00:00: 00 Yes [id number] 2{puff} Inhale 2 Puffs every 6 (six) hours as needed for Wheezing or Shortness of Breath. [facility] albuterol 90 mcg/actuati on inhaler 11-05 00:00: 00 Yes [id number] 2{puff} Inhale 2 Puffs every 6 (six) hours as needed for Wheezing or Shortness of Breath. [facility] albuterol 90 mcg/actuati on inhaler 11-05 00:00: 00 Yes [id number] 2{puff} Inhale 2 Puffs every 6 (six) hours as needed for Wheezing or Shortness of Breath. [facility] albuterol 90 mcg/actuati on inhaler 11-05 00:00: 00 Yes [id number] 2{puff} Inhale 2 Puffs every 6 (six) hours as needed for Wheezing or Shortness of Breath. [facility] albuterol 90 mcg/actuati on inhaler 11-05 00:00: 00 Yes [id number] 2{puff} Inhale 2 Puffs every 6 (six) hours as needed for Wheezing or Shortness of Breath. [facility] albuterol 90 mcg/actuati on inhaler 11-05 00:00: 00 Yes [id number] 2{puff} Inhale 2 Puffs every 6 (six) hours as needed for Wheezing or Shortness of Breath. [facility] albuterol 90 mcg/actuati on inhaler 11-05 00:00: 00 Yes [id number] 2{puff} Inhale 2 Puffs every 6 (six) hours as needed for Wheezing or Shortness of Breath. [facility] albuterol 90 mcg/actuati on inhaler 11-05 00:00: 00 Yes [id number] 2{puff} Inhale 2 Puffs every 6 (six) hours as needed for Wheezing or Shortness of Breath. [facility] albuterol 90 mcg/actuati on inhaler 11-05 00:00: 00 Yes [id number] 2{puff} Inhale 2 Puffs every 6 (six) hours as needed for Wheezing or Shortness of Breath. [facility] albuterol 90 mcg/actuati on inhaler 11-05 00:00: 00 Yes [id number] 2{puff} Inhale 2 Puffs every 6 (six) hours as needed for Wheezing or Shortness of Breath. [facility] albuterol 90 mcg/actuati on inhaler 11-05 00:00: 00 Yes [id number] 2{puff} Inhale 2 Puffs every 6 (six) hours as needed for Wheezing or Shortness of Breath. [facility] albuterol 90 mcg/actuati on inhaler 11-05 00:00: 00 Yes [id number] 2{puff} Inhale 2 Puffs every 6 (six) hours as needed for Wheezing or Shortness of Breath. [facility] albuterol 90 mcg/actuati on inhaler 11-05 00:00: 00 Yes [id number] 2{puff} Inhale 2 Puffs every 6 (six) hours as needed for Wheezing or Shortness of Breath. [facility] albuterol 90 mcg/actuati on inhaler 11-05 00:00: 00 Yes [id number] 2{puff} Inhale 2 Puffs every 6 (six) hours as needed for Wheezing or Shortness of Breath. [facility] albuterol 90 mcg/actuati on inhaler 11-05 00:00: 00 Yes [id number] 2{puff} Inhale 2 Puffs every 6 (six) hours as needed for Wheezing or Shortness of Breath. [facility] albuterol 90 mcg/actuati on inhaler 11-05 00:00: 00 Yes [id number] 2{puff} Inhale 2 Puffs every 6 (six) hours as needed for Wheezing or Shortness of Breath. [facility] albuterol 90 mcg/actuati on inhaler 11-05 00:00: 00 Yes [id number] 2{puff} Inhale 2 Puffs every 6 (six) hours as needed for Wheezing or Shortness of Breath. [facility] albuterol 90 mcg/actuati on inhaler 11-05 00:00: 00 Yes [id number] 2{puff} Inhale 2 Puffs every 6 (six) hours as needed for Wheezing or Shortness of Breath. [facility] [facility] albuterol 90 mcg/actuati on inhaler 11-05 00:00: 00 Yes [id number] 2{puff} Inhale 2 Puffs every 6 (six) hours as needed for Wheezing or Shortness of Breath. [facility] albuterol 90 mcg/actuati on inhaler 11-05 00:00: 00 Yes [id number] 2{puff} Inhale 2 Puffs every 6 (six) hours as needed for Wheezing or Shortness of Breath. [facility] Budesonide 90 mcg/actuati on aerosol powder 11-05 00:00: 00 Yes [id number] 1{puff} Inhale 1 Puff every morning and evening. [facility] HYDROcodone -acetaminop hen 5-325 mg tablet 11-05 00:00: 00 Yes [id number] 1{tbl} Take 1 tablet by mouth every 6 (six) hours as needed for Pain (scale 4-6). Indication s: acute pain [facility] albuterol 90 mcg/actuati on inhaler 11-05 00:00: 00 Yes [id number] 2{puff} Inhale 2 Puffs every 6 (six) hours as needed for Wheezing or Shortness of Breath. [facility] albuterol 90 mcg/actuati on inhaler 11-05 00:00: 00 Yes [id number] 2{puff} Inhale 2 Puffs every 6 (six) hours as needed for Wheezing or Shortness of Breath. [facility] albuterol 90 mcg/actuati on inhaler 11-05 00:00: 00 Yes [id number] 2{puff} Inhale 2 Puffs every 6 (six) hours as needed for Wheezing or Shortness of Breath. [facility] albuterol 90 mcg/actuati on inhaler 11-05 00:00: 00 Yes [id number] 2{puff} Inhale 2 Puffs every 6 (six) hours as needed for Wheezing or Shortness of Breath. [facility] albuterol 90 mcg/actuati on inhaler 11-05 00:00: 00 Yes [id number] 2{puff} Inhale 2 Puffs every 6 (six) hours as needed for Wheezing or Shortness of Breath. [facility] albuterol 90 mcg/actuati on inhaler 11-05 00:00: 00 Yes [id number] 2{puff} Inhale 2 Puffs every 6 (six) hours as needed for Wheezing or Shortness of Breath. [facility] albuterol 90 mcg/actuati on inhaler 11-05 00:00: 00 Yes [id number] 2{puff} Inhale 2 Puffs every 6 (six) hours as needed for Wheezing or Shortness of Breath. [facility] albuterol 90 mcg/actuati on inhaler 11-05 00:00: 00 Yes [id number] 2{puff} Inhale 2 Puffs every 6 (six) hours as needed for Wheezing or Shortness of Breath. [facility] albuterol 90 mcg/actuati on inhaler 11-05 00:00: 00 Yes [id number] 2{puff} Inhale 2 Puffs every 6 (six) hours as needed for Wheezing or Shortness of Breath. [facility] albuterol 90 mcg/actuati on inhaler 4 00:00: 00 Yes [id number] 2{puff} Inhale 2 Puffs every 6 (six) hours as needed for Wheezing or Shortness of Breath. [facility] albuterol 90 mcg/actuati on inhaler 11-05 00:00: 00 Yes [id number] 2{puff} Inhale 2 Puffs every 6 (six) hours as needed for Wheezing or Shortness of Breath. [facility] albuterol 90 mcg/actuati on inhaler 11-05 00:00: 00 Yes [id number] 2{puff} Inhale 2 Puffs every 6 (six) hours as needed for Wheezing or Shortness of Breath. [facility] albuterol 90 mcg/actuati on inhaler 11-05 00:00: 00 Yes [id number] 2{puff} Inhale 2 Puffs every 6 (six) hours as needed for Wheezing or Shortness of Breath. [facility] albuterol 90 mcg/actuati on inhaler 11-05 00:00: 00 Yes [id number] 2{puff} Inhale 2 Puffs every 6 (six) hours as needed for Wheezing or Shortness of Breath. [facility] albuterol 90 mcg/actuati on inhaler 11-05 00:00: 00 Yes [id number] 2{puff} Inhale 2 Puffs every 6 (six) hours as needed for Wheezing or Shortness of Breath. [facility] albuterol 90 mcg/actuati on inhaler 11-05 00:00: 00 Yes [id number] 2{puff} Inhale 2 Puffs every 6 (six) hours as needed for Wheezing or Shortness of Breath. [facility] albuterol 90 mcg/actuati on inhaler 11-05 00:00: 00 Yes [id number] 2{puff} Inhale 2 Puffs every 6 (six) hours as needed for Wheezing or Shortness of Breath. [facility] albuterol 90 mcg/actuati on inhaler 11-05 00:00: 00 Yes [id number] 2{puff} Inhale 2 Puffs every 6 (six) hours as needed for Wheezing or Shortness of Breath. [facility] albuterol 90 mcg/actuati on inhaler 11-05 00:00: 00 Yes [id number] 2{puff} Inhale 2 Puffs every 6 (six) hours as needed for Wheezing or Shortness of Breath. [facility] Budesonide 90 mcg/actuati on aerosol powder 11-05 00:00: 00 Yes [id number] 1{puff} Inhale 1 Puff every morning and evening. [facility] albuterol 90 mcg/actuati on inhaler 11-05 00:00: 00 Yes [id number] 2{puff} Inhale 2 Puffs every 6 (six) hours as needed for Wheezing or Shortness of Breath. [facility] albuterol 90 mcg/actuati on inhaler 11-05 00:00: 00 Yes [id number] 2{puff} Inhale 2 Puffs every 6 (six) hours as needed for Wheezing or Shortness of Breath. [facility] albuterol 90 mcg/actuati on inhaler 11-05 00:00: 00 Yes [id number] 2{puff} Inhale 2 Puffs every 6 (six) hours as needed for Wheezing or Shortness of Breath. [facility] albuterol 90 mcg/actuati on inhaler 11-05 00:00: 00 Yes [id number] 2{puff} Inhale 2 Puffs every 6 (six) hours as needed for Wheezing or Shortness of Breath. [facility] albuterol 90 mcg/actuati on inhaler 11-05 00:00: 00 Yes [id number] 2{puff} Inhale 2 Puffs every 6 (six) hours as needed for Wheezing or Shortness of Breath. [facility] HYDROcodone -acetaminop hen 5-325 mg tablet 11-05 00:00: 00 Yes [id number] 1{tbl} Take 1 tablet by mouth every 6 (six) hours as needed for Pain (scale 4-6). Indication s: acute pain [facility] albuterol 90 mcg/actuati on inhaler 11-05 00:00: 00 Yes [id number] 2{puff} Inhale 2 Puffs every 6 (six) hours as needed for Wheezing or Shortness of Breath. [facility] albuterol 90 mcg/actuati on inhaler 11-05 00:00: 00 Yes [id number] 2{puff} Inhale 2 Puffs every 6 (six) hours as needed for Wheezing or Shortness of Breath. [facility] albuterol 90 mcg/actuati on inhaler 11-05 00:00: 00 Yes [id number] 2{puff} Inhale 2 Puffs every 6 (six) hours as needed for Wheezing or Shortness of Breath. [facility] albuterol 90 mcg/actuati on inhaler 11-05 00:00: 00 Yes [id number] 2{puff} Inhale 2 Puffs every 6 (six) hours as needed for Wheezing or Shortness of Breath. [facility] albuterol 90 mcg/actuati on inhaler 11-05 00:00: 00 Yes [id number] 2{puff} Inhale 2 Puffs every 6 (six) hours as needed for Wheezing or Shortness of Breath. [facility] albuterol 90 mcg/actuati on inhaler 11-05 00:00: 00 Yes [id number] 2{puff} Inhale 2 Puffs every 6 (six) hours as needed for Wheezing or Shortness of Breath. [facility] albuterol 90 mcg/actuati on inhaler 11-05 00:00: 00 Yes [id number] 2{puff} Inhale 2 Puffs every 6 (six) hours as needed for Wheezing or Shortness of Breath. [facility] albuterol 90 mcg/actuati on inhaler 11-05 00:00: 00 Yes [id number] 2{puff} Inhale 2 Puffs every 6 (six) hours as needed for Wheezing or Shortness of Breath. [facility] albuterol 90 mcg/actuati on inhaler 11-05 00:00: 00 Yes [id number] 2{puff} Inhale 2 Puffs every 6 (six) hours as needed for Wheezing or Shortness of Breath. [facility] albuterol 90 mcg/actuati on inhaler 11-05 00:00: 00 Yes [id number] 2{puff} Inhale 2 Puffs every 6 (six) hours as needed for Wheezing or Shortness of Breath. [facility] albuterol 90 mcg/actuati on inhaler 11-05 00:00: 00 Yes [id number] 2{puff} Inhale 2 Puffs every 6 (six) hours as needed for Wheezing or Shortness of Breath. [facility] albuterol 90 mcg/actuati on inhaler 11-05 00:00: 00 Yes [id number] 2{puff} Inhale 2 Puffs every 6 (six) hours as needed for Wheezing or Shortness of Breath. [facility] albuterol 90 mcg/actuati on inhaler 11-05 00:00: 00 Yes [id number] 2{puff} Inhale 2 Puffs every 6 (six) hours as needed for Wheezing or Shortness of Breath. [facility] albuterol 90 mcg/actuati on inhaler 11-05 00:00: 00 Yes [id number] 2{puff} Inhale 2 Puffs every 6 (six) hours as needed for Wheezing or Shortness of Breath. [facility] albuterol 90 mcg/actuati on inhaler 11-05 00:00: 00 Yes [id number] 2{puff} Inhale 2 Puffs every 6 (six) hours as needed for Wheezing or Shortness of Breath. [facility] albuterol 90 mcg/actuati on inhaler 11-05 00:00: 00 Yes [id number] 2{puff} Inhale 2 Puffs every 6 (six) hours as needed for Wheezing or Shortness of Breath. [facility] albuterol 90 mcg/actuati on inhaler 11-05 00:00: 00 Yes [id number] 2{puff} Inhale 2 Puffs every 6 (six) hours as needed for Wheezing or Shortness of Breath. [facility] albuterol 90 mcg/actuati on inhaler 11-05 00:00: 00 Yes [id number] 2{puff} Inhale 2 Puffs every 6 (six) hours as needed for Wheezing or Shortness of Breath. [facility] albuterol 90 mcg/actuati on inhaler 11-05 00:00: 00 Yes [id number] 2{puff} Inhale 2 Puffs every 6 (six) hours as needed for Wheezing or Shortness of Breath. [facility] albuterol 90 mcg/actuati on inhaler 11-05 00:00: 00 Yes [id number] 2{puff} Inhale 2 Puffs every 6 (six) hours as needed for Wheezing or Shortness of Breath. [facility] albuterol 90 mcg/actuati on inhaler 11-05 00:00: 00 Yes [id number] 2{puff} Inhale 2 Puffs every 6 (six) hours as needed for Wheezing or Shortness of Breath. [facility] albuterol 90 mcg/actuati on inhaler 11-05 00:00: 00 Yes [id number] 2{puff} Inhale 2 Puffs every 6 (six) hours as needed for Wheezing or Shortness of Breath. [facility] albuterol 90 mcg/actuati on inhaler 11-05 00:00: 00 Yes [id number] 2{puff} Inhale 2 Puffs every 6 (six) hours as needed for Wheezing or Shortness of Breath. [facility] albuterol 90 mcg/actuati on inhaler 11-05 00:00: 00 Yes [id number] 2{puff} Inhale 2 Puffs every 6 (six) hours as needed for Wheezing or Shortness of Breath. [facility] albuterol 90 mcg/actuati on inhaler 11-05 00:00: 00 Yes [id number] 2{puff} Inhale 2 Puffs every 6 (six) hours as needed for Wheezing or Shortness of Breath. [facility] albuterol 90 mcg/actuati on inhaler 11-05 00:00: 00 Yes [id number] 2{puff} Inhale 2 Puffs every 6 (six) hours as needed for Wheezing or Shortness of Breath. [facility] albuterol 90 mcg/actuati on inhaler 11-05 00:00: 00 Yes [id number] 2{puff} Inhale 2 Puffs every 6 (six) hours as needed for Wheezing or Shortness of Breath. [facility] albuterol 90 mcg/actuati on inhaler 11-05 00:00: 00 Yes [id number] 2{puff} Inhale 2 Puffs every 6 (six) hours as needed for Wheezing or Shortness of Breath. [facility] albuterol 90 mcg/actuati on inhaler 11-05 00:00: 00 Yes [id number] 2{puff} Inhale 2 Puffs every 6 (six) hours as needed for Wheezing or Shortness of Breath. [facility] albuterol 90 mcg/actuati on inhaler 11-05 00:00: 00 Yes [id number] 2{puff} Inhale 2 Puffs every 6 (six) hours as needed for Wheezing or Shortness of Breath. [facility] Budesonide 90 mcg/actuati on aerosol powder 11-05 00:00: 00 12-16 00:00 :00 No [id number] 1{puff} Inhale 1 Puff every morning and evening. [facility] HYDROcodone -acetaminop hen 5-325 mg tablet 11-05 00:00: 00 12-16 00:00 :00 No [id number] 1{tbl} Take 1 tablet by mouth every 6 (six) hours as needed for Pain (scale 4-6). Indication s: acute pain [facility] gabapentin 300 mg capsule 11-05 00:00: 00 12-06 04:59 :00 No [id number] 300mg Take 1 capsule by mouth 2 (two) times daily for 30 days. [facility] gabapentin 300 mg capsule 11-05 00:00: 00 12-06 04:59 :00 No [id number] 300mg Take 1 capsule by mouth 2 (two) times daily for 30 days. [facility] azithromyci n 500 mg tablet 11-05 00:00: 00 11-08 04:59 :00 No [id number] 500mg Take 1 tablet by mouth daily for 2 doses. [facility] azithromyci n 500 mg tablet 11-05 00:00: 00 11-08 04:59 :00 No [id number] 500mg Take 1 tablet by mouth daily for 2 doses. [facility] enoxaparin (LOVENOX) injection 30 mg 11-04 22:00: 00 Yes 30mg 30 mg, Subcutaneo us, DAILY, First dose on Tue11/04/21 at 1700, Until Discontinu ed, Routine [facility] sulfur hexafluorid e microsphr (LUMASON) injection 5 mL 11-04 17:45: 00 11-04 17:45 :00 No [id number] 5mL 5 mL, Intravenou s, ONCE, 1 dose, On Tue11/04/21 at 1245, Routine
administrative appeals tribunal member approving Restricted medication : ERIC ARANA [facility] predniSONE (DELTASONE) tablet 50 mg 11-04 17:00: 00 Yes 50mg 50 mg, Oral, QNOON, First dose on Tue11/04/21 at 1200, Until Discontinu ed, Routine [facility] morpHINE injection 2 mg 11-04 16:15: 00 11-04 15:22 :00 No 2mg 2 mg, Slow IV Push, ONCE, 1 dose, On Tue11/04/21 at 1115, Routine [facility] HYDROcodone -acetaminop hen (NORCO 5) 5-325 mg tablet 1 tablet 11-04 15:06: 46 Yes 1{tbl} 1 tablet, Oral, Q6HPRN, Starting on Tue11/04/21 at 1006, Until Discontinu ed, Routine, Pain (scale 4-6) [facility] metoprolol succinate XL (TOPROL XL) tablet 25 mg 11-04 14:00: 00 Yes 25mg 25 mg, Oral, DAILY, First dose on Tue11/04/21 at 0900, Until Discontinu ed, [facility]AX[facility] 500 mg in NaCl 0.9% (NS) 250 mL VIAL-MATE IV piggyback 11-04 09:00: 00 11-05 13:35 :10 No 500mg 500 mg, IV Piggyback, Q24H ABX, 7 doses, First dose on Tue11/04/21 at 0400, Last dose on Tue11/10/21 at 0400, Administer over 60 Minutes, 250 mL
Reas on for Anti-Infec tive: Empiric Therapy for Suspected Infection< br>Empiric Therapy Site: Respirator y
Durat ion of therapy: 7 days [facility] aspirin E.C. (ECOTRIN) tablet 325 mg 11-04 08:30: 00 Yes 325mg 325 mg, Oral, QAM WITH BREAKFAST, First dose on Tue11/04/21 at 0330, Until Discontinu ed, Routine [facility] budesonide (PULMICORT RESPULE) nebulizer solution 0.5 mg 11-04 08:00: 00 Yes .5mg 0.5 mg, Inhalation , BID, First dose on Tue11/04/21 at 0300, Until Discontinu ed, Routine [facility] ipratropium -albuteroL (DUONEB) 0.5 mg-3 mg(2.5 mg base)/3 mL nebulizer solution 3 mL 11-04 08:00: 00 Yes 3mL 3 mL, Inhalation , Q4H, First dose (after last reorder) on Tue11/04/21 at 0300, Until Discontinu ed, Routine [facility] gabapentin (NEURONTIN) capsule 300 mg 11-04 08:00: 00 Yes 300mg 300 mg, Oral, BID, First dose on Tue11/04/21 at 0300, Until Discontinu ed, [facility] docus[facility] (COLACE) capsule 100 mg 11-04 08:00: 00 Yes 100mg 100 mg, Oral, BID, First dose on Tue11/04/21 at 0300, Until Discontinu ed, Routine [facility] ondansetron (ZOFRAN (PF)) injection 4 mg 11-04 07:56: 12 Yes 4mg 4 mg, Slow IV Push, Q6HPRN, Starting on Tue11/04/21 at 0256, Until Discontinu ed, Routine, Nausea and Vomiting (N/V) [facility] ipratropium -albuteroL (DUONEB) 0.5 mg-3 mg(2.5 mg base)/3 mL nebulizer solution 3 mL 11-04 04:45: 00 11-04 03:59 :00 No 3mL 3 mL, Inhalation , ONCE, 1 dose, On Tue11/03/21 at 2345, Routine [facility] methylpredn isolone sod succ (SOLU-MEDRO L) injection 125 mg 11-04 04:45: 00 11-04 04:59 :00 No 125mg 125 mg, IV Piggyback, ONCE, 1 dose, On Tue11/03/21 at 2345, LARRY [facility] Dose Unknown 09-28 00:00: 00 No Dose Unknown - 00:00: 00 No Dulera 100 mcg-5 mcg/actuati on HFA aerosol inhaler - 00:00: 00 No 2mcg/ac tuation Dulera 200 mcg-5 mcg/actuati on HFA aerosol inhaler - 00:00: 00 No 1mcg/ac tuation Dose Unknown -16 00:00: 00 No prednisone 20 mg tablet 2022-0 2-16 00:00: 00 No mg prednisone 20 mg tablet 0 2-16 00:00: 00 No mg Bromfed DM 2 mg-30 mg-10 mg/5 mL oral syrup 2021-0 2-16 00:00: 00 No 5mg/5 mL Bromfed DM 2 mg-30 mg-10 mg/5 mL oral syrup 2021-0 2-16 00:00: 00 No 5mg/5 mL Dulera 200 mcg-5 mcg/actuati on HFA aerosol inhaler 0 2-16 00:00: 00 No 1mcg/ac tuation Dose Unknown 0 2-16 00:00: 00 No prednisone 20 mg tablet 0 2-16 00:00: 00 No mg prednisone 20 mg tablet 0 2-16 00:00: 00 No mg Bromfed DM 2 mg-30 mg-10 mg/5 mL oral syrup 2021-0 2-16 00:00: 00 No 5mg/5 mL Bromfed DM 2 mg-30 mg-10 mg/5 mL oral syrup 2021-0 2-16 00:00: 00 No 5mg/5 mL Dulera 200 mcg-5 mcg/actuati on HFA aerosol inhaler 2021-0 2-16 00:00: 00 No 1mcg/ac tuation Dulera 200 mcg-5 mcg/actuati on HFA aerosol inhaler 0 2-16 00:00: 00 No 1mcg/ac tuation prednisone 20 mg tablet 2021-0 2-16 00:00: 00 No mg prednisone 20 mg tablet 2021-0 2-16 00:00: 00 No mg Bromfed DM 2 mg-30 mg-10 mg/5 mL oral syrup 2021-0 2-16 00:00: 00 No 5mg/5 mL Bromfed DM 2 mg-30 mg-10 mg/5 mL oral syrup 2021-0 2-16 00:00: 00 No 5mg/5 mL benzonatate 100 mg capsule 2021-0 2-13 00:00: 00 No mg Dose Unknown 2021-0 2-13 00:00: 00 No benzonatate 100 mg capsule 2021-0 2-13 00:00: 00 No mg Dose Unknown 0 2-13 00:00: 00 No benzonatate 100 mg capsule 2-13 00:00: 00 No mg albuterol sulfate 2.5 mg/3 mL (0.083 %) solution for nebulizatio n 2- 00:00: 00 No /3 mL (0.083 %) prednisone 20 mg tablet 1- 00:00: 00 No mg levofloxaci n 500 mg tablet - 00:00: 00 No mg codeine 10 mg-guaifene sin 100 mg/5 mL oral liquid - 00:00: 00 No mg/5 mL prednisone 20 mg tablet - 00:00: 00 No mg levofloxaci n 500 mg tablet 08-25 00:00: 00 No mg codeine 10 mg-guaifene sin 100 mg/5 mL oral liquid - 00:00: 00 No mg/5 mL prednisone 20 mg tablet - 00:00: 00 No mg levofloxaci n 500 mg tablet 08-25 00:00: 00 No mg codeine 10 mg-guaifene sin 100 mg/5 mL oral liquid 08-25 00:00: 00 No mg/5 mL Dose Unknown 04-20 00:00: 00 No Dose Unknown 04-20 00:00: 00 No albuterol sulfate 2.5 mg/3 mL (0.083 %) solution for nebulizatio n 04-20 00:00: 00 No 3/3 mL (0.083 %) Advair Diskus 250 mcg-50 mcg/dose powder for inhalation 10-20 00:00: 00 No 1mcg/do se Advair Diskus 250 mcg-50 mcg/dose powder for inhalation 10-20 00:00: 00 No 1mcg/do se prednisone 20 mg tablet 10-20 00:00: 00 No mg prednisone 20 mg tablet 10-20 00:00: 00 No mg Dose Unknown 10-20 00:00: 00 No albuterol sulfate 2.5 mg/3 mL (0.083 %) solution for nebulizatio n 10-20 00:00: 00 No 3/3 mL (0.083 %) Advair Diskus 250 mcg-50 mcg/dose powder for inhalation 10-20 00:00: 00 No 1mcg/do se Advair Diskus 250 mcg-50 mcg/dose powder for inhalation 10-20 00:00: 00 No 1mcg/do se prednisone 20 mg tablet 10-20 00:00: 00 No mg prednisone 20 mg tablet 10-20 00:00: 00 No mg albuterol sulfate 2.5 mg/3 mL (0.083 %) solution for nebulizatio n 10-20 00:00: 00 No 3/3 mL (0.083 %) Advair Diskus 250 mcg-50 mcg/dose powder for inhalation 10-20 00:00: 00 No 1mcg/do se Advair Diskus 250 mcg-50 mcg/dose powder for inhalation 10-20 00:00: 00 No 1mcg/do se prednisone 20 mg tablet 10-20 00:00: 00 No mg prednisone 20 mg tablet 10-20 00:00: 00 No mg Dose Unknown 10-20 00:00: 00 No albuterol sulfate 2.5 mg/3 mL (0.083 %) solution for nebulizatio n 10-20 00:00: 00 No 3/3 mL (0.083 %) albuterol sulfate 2.5 mg/3 mL (0.083 %) solution for nebulizatio n 10-20 00:00: 00 No 3/3 mL (0.083 %) Advair Diskus 250 mcg-50 mcg/dose powder for inhalation 2019-08 00:00: 00 No 1mcg/do se Advair Diskus 250 mcg-50 mcg/dose powder for inhalation 2019-08 00:00: 00 No 1mcg/do se loratadine 10 mg tablet 2019-08 00:00: 00 No 1mg loratadine 10 mg tablet 2019-08 00:00: 00 No 1mg furosemide 20 mg tablet 2019-08 00:00: 00 No 1mg gabapentin 100 mg capsule 2019-08 00:00: 00 No 1mg albuterol sulfate 2.5 mg/3 mL (0.083 %) solution for nebulizatio n 2019-08 00:00: 00 No 3/3 mL (0.083 %) furosemide 20 mg tablet 2019-08 00:00: 00 No 1mg gabapentin 100 mg capsule 2019-08 00:00: 00 No 1mg albuterol sulfate 2.5 mg/3 mL (0.083 %) solution for nebulizatio n 2019-08 00:00: 00 No 3/3 mL (0.083 %) Advair Diskus 250 mcg-50 mcg/dose powder for inhalation 2019-08 00:00: 00 No 1mcg/do se loratadine 10 mg tablet 2019-08 00:00: 00 No 1mg furosemide 20 mg tablet 2019-08 00:00: 00 No 1mg gabapentin 100 mg capsule 2019-08 00:00: 00 No 1mg albuterol sulfate 2.5 mg/3 mL (0.083 %) solution for nebulizatio n 2019-08 00:00: 00 No 3/3 mL (0.083 %) albuterol sulfate 2.5 mg/3 mL (0.083 %) solution for nebulizatio n 02-24 00:00: 00 No 3/3 mL (0.083 %) albuterol sulfate 2.5 mg/3 mL (0.083 %) solution for nebulizatio n 02-24 00:00: 00 No 3/3 mL (0.083 %) albuterol sulfate 2.5 mg/3 mL (0.083 %) solution for nebulizatio n 02-24 00:00: 00 No 3/3 mL (0.083 %) prednisone 20 mg tablet 02-15 00:00: 00 No mg azithromyci n 250 mg tablet 02-15 00:00: 00 No mg promethazin e-DM 6.25 mg-15 mg/5 mL syrup 02-15 00:00: 00 No 5mg/5 mL prednisone 20 mg tablet 02-15 00:00: 00 No mg azithromyci n 250 mg tablet 02-15 00:00: 00 No mg promethazin e-DM 6.25 mg-15 mg/5 mL syrup 02-15 00:00: 00 No 5mg/5 mL prednisone 20 mg tablet 02-15 00:00: 00 No mg azithromyci n 250 mg tablet 02-15 00:00: 00 No mg promethazin e-DM 6.25 mg-15 mg/5 mL syrup 02-15 00:00: 00 No 5mg/5 mL hydrochloro thiazide 25 mg tablet 09-12 00:00: 00 No 1mg meloxicam 7.5 mg tablet 2 00:00: 00 No 1mg hydrochloro thiazide 25 mg tablet 09-12 00:00: 00 No 1mg meloxicam 7.5 mg tablet 09-12 00:00: 00 No 1mg hydrochloro thiazide 25 mg tablet 212 00:00: 00 No 1mg meloxicam 7.5 mg tablet 212 00:00: 00 No 1mg hydrochloro thiazide 25 mg tablet 205 00:00: 00 No 1mg meloxicam 7.5 mg tablet 205 00:00: 00 No 1mg prednisone 20 mg tablet 205 00:00: 00 No mg hydrochloro thiazide 25 mg tablet 205 00:00: 00 No 1mg meloxicam 7.5 mg tablet 205 00:00: 00 No 1mg prednisone 20 mg tablet 2-05 00:00: 00 No mg hydrochloro thiazide 25 mg tablet 205 00:00: 00 No 1mg meloxicam 7.5 mg tablet 2-05 00:00: 00 No 1mg prednisone 20 mg tablet 0 2-05 00:00: 00 No mg prednisone 20 mg tablet 3-13 00:00: 00 No 2mg diclofenac sodium 75 mg tablet,ban yed release 10-11 00:00: 00 No 1mg prednisone 20 mg tablet 10-11 00:00: 00 No 2mg diclofenac sodium 75 mg tablet,ban yed release 10-11 00:00: 00 No 1mg prednisone 20 mg tablet 10-11 00:00: 00 No 2mg diclofenac sodium 75 mg tablet,ban yed release 10-11 00:00: 00 No 1mg Immunizations Ordered Immunization Name Filled Immunization Name Date Status Comments Source Influenza Virus Vaccine Quad IM, Preserv and ABX Free 6 MO-64 YRS (FLUCELVAX) 2021-12-17 00:00:00 Completed [facility] Influenza Virus Vaccine Quad IM, Preserv and ABX Free 6 MO-64 YRS (FLUCELVAX) 2021-12-17 00:00:00 Completed [facility] Influenza Virus Vaccine Quad IM, Preserv and ABX Free 6 MO-64 YRS (FLUCELVAX) 2021-12-17 00:00:00 Completed [facility] Influenza Virus Vaccine Quad IM, Preserv and ABX Free 6 MO-64 YRS (FLUCELVAX) 2021-12-17 00:00:00 Completed [facility] Influenza Virus Vaccine Quad IM, Preserv and ABX Free 6 MO-64 YRS (FLUCELVAX) 2021-12-17 00:00:00 Completed [facility] Influenza Virus Vaccine Quad IM, Preserv and ABX Free 6 MO-64 YRS (FLUCELVAX) 2021-12-17 00:00:00 Completed [facility] Influenza Virus Vaccine Quad IM, Preserv and ABX Free 6 MO-64 YRS (FLUCELVAX) 2021-12-17 00:00:00 Completed [facility] Influenza Virus Vaccine Quad IM, Preserv and ABX Free 6 MO-64 YRS (FLUCELVAX) 2021-12-17 00:00:00 Completed [facility] Influenza Virus Vaccine Quad IM, Preserv and ABX Free 6 MO-64 YRS (FLUCELVAX) 2021-12-17 00:00:00 Completed [facility] Influenza Virus Vaccine Quad IM, Preserv and ABX Free 6 MO-64 YRS (FLUCELVAX) 2021-12-17 00:00:00 Completed [facility] Influenza Virus Vaccine Quad IM, Preserv and ABX Free 6 MO-64 YRS (FLUCELVAX) 2021-12-17 00:00:00 Completed [facility] Influenza Virus Vaccine Quad IM, Preserv and ABX Free 6 MO-64 YRS (FLUCELVAX) 2021-12-17 00:00:00 Completed [facility] Influenza Virus Vaccine Quad IM, Preserv and ABX Free 6 MO-64 YRS (FLUCELVAX) 2021-12-17 00:00:00 Completed [facility] Influenza Virus Vaccine Quad IM, Preserv and ABX Free 6 MO-64 YRS (FLUCELVAX) 2021-12-17 00:00:00 Completed [facility] Influenza Virus Vaccine Quad IM, Preserv and ABX Free 6 MO-64 YRS (FLUCELVAX) 2021-12-17 00:00:00 Completed [facility] Influenza Virus Vaccine Quad IM, Preserv and ABX Free 6 MO-64 YRS (FLUCELVAX) 2021-12-17 00:00:00 Completed [facility] Influenza Virus Vaccine Quad IM, Preserv and ABX Free 6 MO-64 YRS 2021-12-17 00:00:00 Completed [facility] Influenza Virus Vaccine Quad IM, Preserv and ABX Free 6 MO-64 YRS 2021-12-17 00:00:00 Completed [facility] Influenza Virus Vaccine Quad IM, Preserv and ABX Free 6 MO-64 YRS 2021-12-17 00:00:00 Completed [facility] Influenza Virus Vaccine Quad IM, Preserv and ABX Free 6 MO-64 YRS 2021-12-17 00:00:00 Completed [facility] Influenza Virus Vaccine Quad IM, Preserv and ABX Free 6 MO-64 YRS 2021-12-17 00:00:00 Completed [facility] Influenza Virus Vaccine Quad IM, Preserv and ABX Free 6 MO-64 YRS 2021-12-17 00:00:00 Completed [facility] Influenza Virus Vaccine Quad IM, Preserv and ABX Free 6 MO-64 YRS 2021-12-17 00:00:00 Completed [facility] Influenza Virus Vaccine Quad IM, Preserv and ABX Free 6 MO-64 YRS 2021-12-17 00:00:00 Completed [facility] Influenza Virus Vaccine Quad IM, Preserv and ABX Free 6 MO-64 YRS 2021-12-17 00:00:00 Completed [facility] Influenza Virus Vaccine Quad IM, Preserv and ABX Free 6 MO-64 YRS 2021-12-17 00:00:00 Completed [facility] Influenza Virus Vaccine Quad IM, Preserv and ABX Free 6 MO-64 YRS 2021-12-17 00:00:00 Completed [facility] Influenza Virus Vaccine Quad IM, Preserv and ABX Free 6 MO-64 YRS 2021-12-17 00:00:00 Completed [facility] Influenza Virus Vaccine Quad IM, Preserv and ABX Free 6 MO-64 YRS 2021-12-17 00:00:00 Completed [facility] Influenza Virus Vaccine Quad IM, Preserv and ABX Free 6 MO-64 YRS 2021-12-17 00:00:00 Completed [facility] Influenza Virus Vaccine Quad IM, Preserv and ABX Free 6 MO-64 YRS 2021-12-17 00:00:00 Completed [facility] Influenza Virus Vaccine Quad IM, Preserv and ABX Free 6 MO-64 YRS 2021-12-17 00:00:00 Completed [facility] Influenza Virus Vaccine Quad IM, Preserv and ABX Free 6 MO-64 YRS 2021-12-17 00:00:00 Completed [facility] Influenza Virus Vaccine Quad IM, Preserv and ABX Free 6 MO-64 YRS 2021-12-17 00:00:00 Completed [facility] Influenza Virus Vaccine Quad IM, Preserv and ABX Free 6 MO-64 YRS 2021-12-17 00:00:00 Completed [facility] Influenza Virus Vaccine Quad IM, Preserv and ABX Free 6 MO-64 YRS 2021-12-17 00:00:00 Completed [facility] Influenza Virus Vaccine Quad IM, Preserv and ABX Free 6 MO-64 YRS 2021-12-17 00:00:00 Completed [facility] Influenza Virus Vaccine Quad IM, Preserv and ABX Free 6 MO-64 19 00:00:00 Completed [facility] Influenza Virus Vaccine Quad IM, Preserv and ABX Free 6 MO-64 YRS 2021-12-17 00:00:00 Completed [facility] Influenza Virus Vaccine Quad IM, Preserv and ABX Free 6 MO-64 YRS 2021-12-17 00:00:00 Completed [facility] Influenza Virus Vaccine Quad IM, Preserv and ABX Free 6 MO-64 YRS 2021-12-17 00:00:00 Completed [facility] Influenza Virus Vaccine Quad IM, Preserv and ABX Free 6 MO-64 YRS 2021-12-17 00:00:00 Completed [facility] Influenza Virus Vaccine Quad IM, Preserv and ABX Free 6 MO-64 YRS 2021-12-17 00:00:00 Completed [facility] Influenza Virus Vaccine Quad IM, Preserv and ABX Free 6 MO-64 YRS 2021-12-17 00:00:00 Completed [facility] Influenza Virus Vaccine Quad IM, Preserv and ABX Free 6 MO-64 YRS 2021-12-17 00:00:00 Completed [facility] Influenza Virus Vaccine Quad IM, Preserv and ABX Free 6 MO-64 YRS 2021-12-17 00:00:00 Completed [facility] Influenza Virus Vaccine Quad IM, Preserv and ABX Free MO-64 YRS 2021-12-17 00:00:00 Completed [facility] Influenza Virus Vaccine Quad IM, Preserv and ABX Free 6 MO-64 YRS 2021-12-17 00:00:00 Completed [facility] Influenza Virus Vaccine Quad IM, Preserv and ABX Free 6 MO-64 YRS 2021-12-17 00:00:00 Completed [facility] Influenza Virus Vaccine Quad IM, Preserv and ABX Free 6 MO-64 YRS 2021-12-17 00:00:00 Completed [facility] Influenza Virus Vaccine Quad IM, Preserv and ABX Free 6 MO-64 YRS 2021-12-17 00:00:00 Completed [facility] Influenza Virus Vaccine Quad IM, Preserv and ABX Free 6 MO-64 YRS 2021-12-17 00:00:00 Completed [facility] Influenza Virus Vaccine Quad IM, Preserv and ABX Free 6 MO-64 YRS 2021-12-17 00:00:00 Completed [facility] Influenza Virus Vaccine Quad IM, Preserv and ABX Free 6 MO-64 YRS 2021-12-17 00:00:00 Completed [facility] Influenza Virus Vaccine Quad IM, Preserv and ABX Free 6 MO-64 YRS 2021-12-17 00:00:00 Completed [facility] Influenza Virus Vaccine Quad IM, Preserv and ABX Free 6 MO-64 YRS 2021-12-17 00:00:00 Completed [facility] Influenza Virus Vaccine Quad IM, Preserv and ABX Free 6 MO-64 YRS 2021-12-17 00:00:00 Completed [facility] Influenza Virus Vaccine Quad IM, Preserv and ABX Free 6 MO-64 YRS 2021-12-17 00:00:00 Completed [facility] Influenza Virus Vaccine Quad IM, Preserv and ABX Free 6 MO-64 YRS 2021-12-17 00:00:00 Completed [facility] Influenza Virus Vaccine Quad IM, Preserv and ABX Free 6 MO-64 YRS 2021-12-17 00:00:00 Completed [facility] Influenza Virus Vaccine Quad IM, Preserv and ABX Free 6 MO-64 YRS 2021-12-17 00:00:00 Completed [facility] Influenza Virus Vaccine Quad IM, Preserv and ABX Free 6 MO-64 YRS 2021-12-17 00:00:00 Completed [facility] Influenza Virus Vaccine Quad IM, Preserv and ABX Free 6 MO-64 YRS 2021-12-17 00:00:00 Completed [facility] Influenza Virus Vaccine Quad IM, Preserv and ABX Free 6 MO-64 YRS 2021-12-17 00:00:00 Completed [facility] Influenza Virus Vaccine Quad IM, Preserv and ABX Free 6 MO-64 YRS 2021-12-17 00:00:00 Completed [facility] Influenza Virus Vaccine Quad IM, Preserv and ABX Free 6 MO-64 YRS 2021-12-17 00:00:00 Completed [facility] Influenza Virus Vaccine Quad IM, Preserv and ABX Free 6 MO-64 YRS 2021-12-17 00:00:00 Completed [facility] Influenza Virus Vaccine Quad IM, Preserv and ABX Free 6 MO-64 YRS 2021-12-17 00:00:00 Completed [facility] Influenza Virus Vaccine Quad IM, Preserv and ABX Free 6 MO-64 YRS 2021-12-17 00:00:00 Completed [facility] Influenza Virus Vaccine Quad IM, Preserv and ABX Free 6 MO-64 YRS (FLUCELVAX) Unknown Completed [facility] Influenza Virus Vaccine Quad IM, Preserv and ABX Free 6 MO-64 YRS (FLUCELVAX) Unknown Completed [facility] Influenza Virus Vaccine Quad IM, Preserv and ABX Free 6 MO-64 YRS (FLUCELVAX) Unknown Completed [facility] Influenza Virus Vaccine Quad IM, Preserv and ABX Free 6 MO-64 YRS (FLUCELVAX) Unknown Completed [facility] Influenza Virus Vaccine Quad IM, Preserv and ABX Free 6 MO-64 YRS (FLUCELVAX) Unknown Completed [facility] Influenza Virus Vaccine Quad IM, Preserv and ABX Free 6 MO-64 YRS (FLUCELVAX) Unknown Completed [facility] Influenza Virus Vaccine Quad IM, Preserv and ABX Free 6 MO-64 YRS (FLUCELVAX) Unknown Completed [facility] Influenza Virus Vaccine Quad IM, Preserv and ABX Free 6 MO-64 YRS (FLUCELVAX) Unknown Completed [facility] Influenza Virus Vaccine Quad IM, Preserv and ABX Free 6 MO-64 YRS (FLUCELVAX) Unknown Completed [facility] Influenza Virus Vaccine Quad IM, Preserv and ABX Free 6 MO-64 YRS (FLUCELVAX) Unknown Completed [facility] Influenza Virus Vaccine Quad IM, Preserv and ABX Free 6 MO-64 YRS (FLUCELVAX) Unknown Completed [facility] Influenza Virus Vaccine Quad IM, Preserv and ABX Free 6 MO-64 YRS (FLUCELVAX) Unknown Completed [facility] Vital Signs Vital Name Observation Time Observation Value Comments S ource Systolic blood pressure 2023-07-11 16:56:00 117 mm[Hg] [facility] Diastolic blood pressure 2023-07-11 16:56:00 76 mm[Hg] [facility] Heart rate 2023-07-11 16:56:00 97 /min [facility] Body temperature 2023-07-11 16:56:00 36.11 Lesley [facility] Body height 2023-07-11 16:56:00 180.3 cm [facility] Body weight 2023-07-11 16:56:00 90.22 kg [facility] BMI 2023-07-11 16:56:00 27.74 kg/m2 [facility] Oxygen saturation in Arterial blood by Pulse oximetry 2023-07-11 16:56:00 90 /min pt uses tank - this was w/room air no tank [facility] Systolic blood pressure 2023-04-27 21:00:00 143 mm[Hg] [facility] Diastolic blood pressure 2023-04-27 21:00:00 90 mm[Hg] [facility] Heart rate 2023-04-27 21:00:00 94 /min [facility] Body temperature 2023-04-27 21:00:00 36.89 Lesley [facility] Respiratory rate 2023-04-27 21:00:00 20 /min [facility] Oxygen saturation in Arterial blood by Pulse oximetry 2023-04-27 21:00:00 98 /min [facility] Systolic blood pressure 2023-04-22 21:00:00 165 mm[Hg] [facility] Diastolic blood pressure 2023-04-22 21:00:00 92 mm[Hg] [facility] Oxygen saturation in Arterial blood by Pulse oximetry 2023-04-22 21:00:00 93 /min [facility] Heart rate 2023-04-22 20:00:00 97 /min [facility] Respiratory rate 2023-04-22 18:41:00 20 /min [facility] Body temperature 2023-04-22 13:01:00 36.67 Lesley [facility] Systolic blood pressure 2023-04-14 18:15:00 107 mm[Hg] [facility] Diastolic blood pressure 2023-04-14 18:15:00 75 mm[Hg] [facility] Heart rate 2023-04-14 18:15:00 89 /min [facility] Oxygen saturation in Arterial blood by Pulse oximetry 2023-04-14 18:15:00 91 /min [facility] Respiratory rate 2023-04-14 18:00:00 16 /min [facility] Body temperature 2023-04-14 13:40:00 36.78 Lesley [facility] Systolic blood pressure 2023-04-11 14:11:00 139 mm[Hg] [facility] Diastolic blood pressure 2023-04-11 14:11:00 78 mm[Hg] [facility] Heart rate 2023-04-11 14:11:00 105 /min [facility] Body temperature 2023-04-11 14:11:00 37.22 Lesley [facility] Respiratory rate 2023-04-11 14:11:00 18 /min [facility] Body height 2023-04-11 14:11:00 180.3 cm [facility] Body weight 2023-04-11 14:11:00 89.948 kg [facility] BMI 2023-04-11 14:11:00 27.66 kg/m2 [facility] Oxygen saturation in Arterial blood by Pulse oximetry 2023-04-11 14:11:00 91 /min [facility] Systolic blood pressure 2023-04-07 17:04:00 113 mm[Hg] [facility] Diastolic blood pressure 2023-04-07 17:04:00 67 mm[Hg] [facility] Heart rate 2023-04-07 17:04:00 97 /min [facility] Body temperature 2023-04-07 17:04:00 36.56 Lesley [facility] Respiratory rate 2023-04-07 17:04:00 20 /min [facility] Oxygen saturation in Arterial blood by Pulse oximetry 2023-04-07 17:04:00 94 /min [facility] Body height 2023-04-06 16:09:00 180.3 cm [facility] Body weight 2023-04-06 16:09:00 90.266 kg [facility] BMI 2023-04-06 16:09:00 27.75 kg/m2 [facility] Systolic blood pressure 2023-01-03 14:23:00 121 mm[Hg] [facility] Diastolic blood pressure 2023-01-03 14:23:00 72 mm[Hg] [facility] Heart rate 2023-01-03 14:23:00 91 /min [facility] Body temperature 2023-01-03 14:23:00 35 Lesley [facility] Respiratory rate 2023-01-03 14:23:00 20 /min [facility] Body height 2023-01-03 14:23:00 180.3 cm [facility] Body weight 2023-01-03 14:23:00 90.402 kg [facility] BMI 2023-01-03 14:23:00 27.80 kg/m2 [facility] Oxygen saturation in Arterial blood by Pulse oximetry 2023-01-03 14:23:00 95 /min [facility] Systolic blood pressure 2022-10-08 13:30:00 134 mm[Hg] [facility] Diastolic blood pressure 2022-10-08 13:30:00 85 mm[Hg] [facility] Heart rate 2022-10-08 13:30:00 100 /min [facility] Body temperature 2022-10-08 13:30:00 36.94 Lesley [facility] Respiratory rate 2022-10-08 13:30:00 20 /min [facility] Body height 2022-10-08 13:30:00 180.3 cm [facility] Body weight 2022-10-08 13:30:00 92.987 kg [facility] BMI 2022-10-08 13:30:00 28.59 kg/m2 [facility] Oxygen saturation in Arterial blood by Pulse oximetry 2022-10-08 13:30:00 94 /min on 2 LNC [facility] Systolic blood pressure 2022-10-04 16:19:00 126 mm[Hg] [facility] Diastolic blood pressure 2022-10-04 16:19:00 83 mm[Hg] [facility] Heart rate 2022-10-04 16:19:00 112 /min [facility] Body temperature 2022-10-04 16:19:00 36.22 Lesley [facility] Body height 2022-10-04 16:19:00 180.3 cm [facility] Body weight 2022-10-04 16:19:00 93.078 kg [facility] BMI 2022-10-04 16:19:00 28.62 kg/m2 [facility] Oxygen saturation in Arterial blood by Pulse oximetry 2022-10-04 16:19:00 91 /min patient states he sometimes uses oxygen - liter 2, will provide roxygen concetrator. [facility] Systolic blood pressure 2022-07-08 15:46:00 129 mm[Hg] [facility] Diastolic blood pressure 2022-07-08 15:46:00 89 mm[Hg] [facility] Heart rate 2022-07-08 15:46:00 113 /min [facility] Body temperature 2022-07-08 15:46:00 36.72 Lesley [facility] Body height 2022-07-08 15:46:00 180.3 cm [facility] Body weight 2022-07-08 15:46:00 97.024 kg [facility] BMI 2022-07-08 15:46:00 29.83 kg/m2 [facility] Oxygen saturation in Arterial blood by Pulse oximetry 2022-07-08 15:46:00 90 /min [facility] Systolic blood pressure 2022-05-20 16:17:00 138 mm[Hg] [facility] Diastolic blood pressure 2022-05-20 16:17:00 85 mm[Hg] [facility] Heart rate 2022-05-20 16:17:00 104 /min [facility] Body temperature 2022-05-20 16:17:00 36.22 Lesley [facility] Body height 2022-05-20 16:17:00 180.3 cm [facility] Body weight 2022-05-20 16:17:00 96.344 kg [facility] BMI 2022-05-20 16:17:00 29.62 kg/m2 [facility] Oxygen saturation in Arterial blood by Pulse oximetry 2022-05-20 16:17:00 88 /min [facility] Heart rate 2021-12-18 00:28:00 85 /min [facility] Respiratory rate 2021-12-18 00:28:00 18 /min [facility] Oxygen saturation in Arterial blood by Pulse oximetry 2021-12-18 00:28:00 98 /min [facility] Systolic blood pressure 2021-12-17 22:10:00 116 mm[Hg] [facility] Diastolic blood pressure 2021-12-17 22:10:00 79 mm[Hg] [facility] Body temperature 2021-12-17 22:10:00 36.11 Lesley [facility] Body height 2021-12-16 09:25:00 180.3 cm [facility] Body weight 2021-12-16 09:25:00 106.958 kg [facility] BMI 2021-12-16 09:25:00 32.89 kg/m2 [facility] Respiratory rate 2021-11-05 21:30:00 20 /min [facility] Oxygen saturation in Arterial blood by Pulse oximetry 2021-11-05 21:30:00 93 /min [facility] Systolic blood pressure 2021-11-05 16:16:00 116 mm[Hg] [facility] Diastolic blood pressure 2021-11-05 16:16:00 71 mm[Hg] [facility] Heart rate 2021-11-05 16:16:00 95 /min [facility] Body temperature 2021-11-05 16:16:00 36.28 Lesley [facility] Body weight 2021-11-05 09:32:00 100.971 kg [facility] BMI 2021-11-05 09:32:00 31.05 kg/m2 [facility] Body height 2021-11-04 17:37:00 180.3 cm [facility] BP Systolic 2022-07-01 16:15:00 116 mm[Hg] BP [...] 18.00 /min Procedures Procedure Date / Time Performed Performing Clinician Source ASSIGNMENT OF BENEFITS 2023-07-18 16:55:46 Docto r Unassigned, [place] [facility] CONSENT/REFUSAL FOR DIAGNOSIS AND TREATMENT 2023-07-18 16:55:26 Doctor Unassigned, [place] [facility] EKG-12 LEAD 2023-04-27 20:34:21 Kasie Persaud [facility] URINALYSIS 2023-04-27 19:29:00 Kasie Persaud [facility] XR CHEST 1 VW 2023-04-27 18:42:00 [facility] 2023-04-27 18:32:00 Kasie Persaud [facility] LIPASE 2023-04-27 18:32:00 Kasie Persaud [facility] AMMONIA, PLASMA 2023-04-27 18:32:00 Kasie Persaud [facility] TROPONIN I 2023-04-27 18:32:00 Kasie Persaud [facility] COMP. METABOLIC PANEL ([id number]) 2023-04-27 18:32:00 Kasie Persaud [facility] CBC WITH DIFF 2023-04-27 18:32:00 [facility] NOW RAPID TESTING) 2023-04-27 18:32:00 Kasie Persaud [facility] CONSENT/REFUSAL FOR DIAGNOSIS AND TREATMENT 2023-04-27 17:35:52 Doctor Unassigned, [place] [facility] IR EMBOLIZATION TUMORS ORGAN ISCHEMIA OR INFARCTION 2023-04-14 16:40:54 Demetrice [facility] MAGNESIUM 2023-04-07 08:11:00 Parth Bills [facility] COMP. METABOLIC PANEL ([id number]) 2023-04-07 08:11:00 Parth Bills [facility] CBC WITH DIFF 2023-04-07 08:11:00 Parth Bills [facility] PROTHROMBIN TIME / INR 2023-04-07 08:11:00 Negar Parth [facility] ACTIVATED PARTIAL THRMPLAS MARIAM 2023-04-07 08:11:00 Negar Parth [facility] IR EMBOLIZATION TUMORS ORGAN ISCHEMIA OR INFARCTION 2023-04-07 00:35:05 [facility]+K+GLU+CA2+ 2023-04-06 22:16:00 Marlon Black [facility] ABG+COOX+NA+K+GLU+CA2+ 2023-04-06 22:16:00 [facility] COMP. METABOLIC PANEL ([id number]) 2023-03-10 16:29:00 Viktoriya Hernández [facility] CBC WITHOUT DIFF 2023-03-10 16:29:00 Viktoriya Hernández [facility] PROTHROMBIN TIME / INR 2023-03-10 16:29:00 Viktoriya Hernández [facility] MR ABDOMEN W WO CONTRAST 2023-01-19 16:02:00 Jefe [facility]cal [facility] PATIENT FINANCIAL POLICY 2023-01-19 14:02:45 Doctor Unassigned, [place] [facility] CONSENT/REFUSAL FOR DIAGNOSIS AND TREATMENT 2023-01-19 13:58:49 Doctor Unassigned, [place] [facility] ASSIGNMENT OF BENEFITS 2023-01-19 13:58:33 Docto r Unassigned, [place] [facility] IR EMBOLIZATION TUMORS ORGAN ISCHEMIA OR INFARCTION 2022-10-08 22:00:25 Christopher Mariscal [facility] MR ABDOMEN W WO CONTRAST 2022-08-25 16:15:00 Greg Mariscal [facility] CONSENT/REFUSAL FOR DIAGNOSIS AND TREATMENT 2022-08-25 14:03:55 Doctor Unassigned, [place] [facility] ASSIGNMENT OF BENEFITS 2022-08-25 14:02:58 Docto r Unassigned, [place] [facility] EXTERNAL PROVIDER RECORDS 2022-07-28 06:01:00 Do ctor Unassigned, [place] [facility] IRON PANEL 2022-05-20 18:03:00 Christopher Mariscal [facility] REFERRAL- REQUEST/RESPONSE 2022-05-04 05:01:00 Doctor Unassigned, [place] [facility] BASIC METABOLIC PANEL (NA, K, CL, CO2, GLUCOSE, BUN, CREATININE, CA) 2021-12-17 17:36:00 Javier Colbert [facility] BASIC METABOLIC PANEL (NA, K, CL, CO2, GLUCOSE, BUN, CREATININE, CA) 2021-12-17 00:18:00 Gianna Ayers [facility] HCV ANTIBODY 2021-12-16 22:26:00 Gianna Ayers [facility] US ABDOMEN LIMITED WITH DOPPLER 2021-12-16 10:43:58 Leia Flor [facility] CT ABDOMEN PELVIS WO CONTRAST 2021-12-16 06:10:43 Boyd Claros [facility] CT THORAX W CONTRAST 2021-12-16 02:02:00 Brigida Ulloa [facility] LIPASE 2021-12-15 22:37:00 Jerod Pennington [facility] TROPONIN I 2021-12-15 22:37:00 Gorge [facility] THYROID STIMULATING HORMONE 2021-12-15 22:37:00 Brigida Ulloa [facility] COMP. METABOLIC PANEL ([id number]) 2021-12-15 22:37:00 Jerod Pennington [facility] CBC WITH DIFF 2021-12-15 22:37:00 Gorge [facility] N-TERMINAL PRO-BNP 2021-12-15 22:37:00 Winifred Ulloa [facility] XR CHEST 2 VW 2021-12-15 22:22:00 Brigida Ulloa [facility] MAGNESIUM 2021-11-05 16:31:00 [facility] COMP. METABOLIC PANEL ([id number]) 2021-11-05 16:31:00 [facility] LIPID PANEL ([id number])(TOTAL CHOLESTEROL, TRIGLYCERIDES, HDL) 2021-11-05 16:31:00 Jorge Fernández [facility] TROPONIN I 2021-11-05 09:50:00 [facility] FREE T4 2021-11-05 09:50:00 Jorge Fernández [facility] THYROID STIMULATING HORMONE 2021-11-05 09:50:00 Jorge Fernández [facility] N-TERMINAL PRO-BNP 2021-11-05 09:50:00 [facility] TROPONIN I 2021-11-04 23:44:00 [place] [facility] TRANSTHORACIC ECHO (TTE) COMPLETE W/ CONTRAST 2021-11-04 17:37:10 [place], Adnan [facility] PHOSPHORUS 2021-11-04 12:05:00 [facility] URIC ACID 2021-11-04 12:05:00 [facility] MAGNESIUM 2021-11-04 12:05:00 [facility] 2021-11-04 12:05:00 [facility] LIPID PANEL (73277)(TOTAL CHOLESTEROL, TRIGLYCERIDES, HDL) 2021-11-04 12:05:00 America edmond [facility] VITAMIN B12, LEVEL 2021-11-04 08:48:00 Nader Cross [facility] TROPONIN I 2021-11-04 08:48:00 [facility] SEDIMENTATION RATE 2021-11-04 08:48:00 Nader Cross [facility] VITAMIN D, 25-OH 2021-11-04 08:48:00 Nader Cross [facility] PROCALCITONIN 2021-11-04 08:48:00 Nader Cross [facility] URINE DRUG (IMMUNOASSAY) - COMPREHENSIVE DRUG SCREEN 2021-11-04 08:08:00 America edmond [facility] URINALYSIS 2021-11-04 08:08:00 Nader Cross [facility] URINE CULTURE 2021-11-04 08:08:00 Nader Cross [facility] UREA NITROGEN, URINE RANDOM 2021-11-04 08:08:00 [place] edmond [facility] SODIUM, URINE RANDOM 2021-11-04 08:08:00 John Paul Cross [facility] PROTEIN CREAT RATIO URINE RANDOM 2021-11-04 08:08:00 Nader Cross [facility] RESPIRATORY PANEL BY PCR 2021-11-04 08:08:00 [place] edmond [facility] COVID-19 (ID NOW RAPID TESTING) 2021-11-04 04:03:00 Sheba Lott [facility] LAB ONLY COVID INTERPRETATION 2021-11-04 04:03:00 Sheba Lott [facility] XR CHEST 1 VW 2021-11-04 02:57:00 Birgit Lemon [facility] ACUTE CARE ARTERIAL BLOOD GAS 2021-11-04 02:57:00 Birgit Lemon [facility] LIPASE 2021-11-04 02:45:00 Birgit Lemon [facility] TROPONIN I 2021-11-04 02:45:00 Birgit Lemon [facility] COMP. METABOLIC PANEL (38649) 2021-11-04 02:45:00 Birgit Lemon [facility] CBC WITH DIFF 2021-11-04 02:45:00 Birgit Lemon [facility] GLYCOSYLATED HEMOGLOBIN (A1C) 2021-11-04 02:45:00 Nader Cross [facility] PROTHROMBIN TIME / INR 2021-11-04 02:45:00 Aldair Lemon [facility] ACTIVATED PARTIAL THRMPLAS MARIAM 2021-11-04 02:45:00 Birgit Lemon [facility] HB ECG ROUTINE & RHYTHM STRIP 2021-11-04 02:13:29 Birgit Lemon [facility] NOTICE OF PRIVACY PRACTICES 2021-11-04 01:59:17 Doctor Unassigned, [place] [facility] CONSENT/REFUSAL FOR DIAGNOSIS AND TREATMENT 2021-11-04 01:58:37 Doctor Unassigned, [place] [facility] Plan of Care Planned Activity Planned Date Details Comments Source Goal Plan of Care Note [code = 46176-9] Goal Plan of Care Note [code = 27759-8] Goal Plan of Care Note [code = 97603-6] Goal Plan of Care Note [code = 95675-1] Goal Plan of Care Note [code = 02955-6] Goal Plan of Care Note [code = 86433-1] Goal Plan of Care Note [code = 69422-3] Goal Plan of Care Note [code = 17931-3] Goal Plan of Care Note [code = 17159-5] Goal Plan of Care Note [code = 06137-8] Goal Plan of Care Note [code = 34299-1] Goal Plan of Care Note [code = 26476-1] Goal Plan of Care Note [code = 00434-3] Goal Plan of Care Note [code = 21268-1] Goal Plan of Care Note [code = 23844-5] Goal Plan of Care Note [code = 79332-3] Goal Plan of Care Note [code = 00935-0] Goal Plan of Care Note [code = 36408-5] Goal Plan of Care Note [code = 49514-9] Goal Plan of Care Note [code = 80910-6] Goal Plan of Care Note [code = 20730-3] Goal Plan of Care Note [code = 23185-4] Goal Plan of Care Note [code = 79010-6] Goal Plan of Care Note [code = 22296-5] Goal Plan of Care Note [code = 98350-5] Goal Plan of Care Note [code = 57627-7] Goal Plan of Care Note [code = 67472-3] Goal Plan of Care Note [code = 23847-0] Goal Plan of Care Note [code = 03565-6] Goal Plan of Care Note [code = 92868-3] Goal Plan of Care Note [code = 62143-9] Goal Plan of Care Note [code = 03214-2] Goal Plan of Care Note [code = 48180-1] Goal Plan of Care Note [code = 30305-2] Goal Plan of Care Note [code = 96375-4] Goal Plan of Care Note [code = 64007-3] Goal Plan of Care Note [code = 18450-0] Goal Plan of Care Note [code = 80736-5] Goal Plan of Care Note [code = 75833-9] Goal Plan of Care Note [code = 74760-7] Goal Plan of Care Note [code = 94779-9] Goal Plan of Care Note [code = 30236-0] Goal Plan of Care Note [code = 53032-9] Goal Plan of Care Note [code = 74910-1] Goal Plan of Care Note [code = 28541-0] Goal Plan of Care Note [code = 96723-2] Goal Plan of Care Note [code = 93823-1] Goal Plan of Care Note [code = 28896-3] Goal Plan of Care Note [code = 61561-4] Goal Plan of Care Note [code = 74536-6] Goal Plan of Care Note [code = 47353-4] Goal Plan of Care Note [code = 84912-6] Goal Plan of Care Note [code = 52625-5] Goal Plan of Care Note [code = 81635-4] Encounters Start Date/Time End Date/Time Encounter Type Admission Type Attending [facility] Facility Care Department Encounter ID Source 2023-08-24 14:02:01 2023-08-24 14:02:01 Outpatient [facility] [id number] Feliciano Crouch 2023-07-21 00:00:00 2023-07-21 00:00:00 Telephone [facility] 1.0.114 350.1.13.10 4.2.7.2.686 [id number] [facility] 2023-07-20 00:00:00 2023-07-20 00:00:00 Telephone [facility] 1.0.114 350.1.13.10 4.2.7.2.686 [id number] [facility] 2023-07-18 10:55:41 2023-07-18 23:59:00 Outpatient R ANA LI ASHLEY [facility] [id number] [facility] 2023-07-18 10:55:41 2023-07-18 23:59:00 Hospital Encounter Ana Li [facility] 1.0.114 350.1.13.10 4.2.7.2.686 [id number] [facility] 2023-07-11 10:30:00 2023-07-11 11:00:00 Office Visit [facility] 1.0.114 350.1.13.10 4.2.7.2.686 [id number] [facility] 2023-07-11 10:30:00 2023-07-11 10:30:00 Outpatient R CHRISTOPHER MARISCAL [facility] [id number] [facility] 2023-07-08 07:50:17 2023-07-08 23:59:00 Outpatient R RADIOLOGY [facility] [id number] [facility] 2023-07-08 07:50:17 2023-07-08 23:59:00 Hospital Encounter Radiology [facility] 1..840.114 350.1.13.10 4.2.7.2.686 [id number] [facility] 2023-07-08 08:58:55 2023-07-08 08:58:55 Outpatient [facility] [id number] Feliciano Buchanan [place] 2023-07-04 09:51:59 2023-07-04 09:51:59 Outpatient [facility] [id number] Feliciano Buchanan [place] 2023-06-09 10:52:23 2023-06-09 10:52:23 Outpatient [facility] [id number] Feliciano Buchanan [place] 2023-04-27 12:49:00 2023-04-27 16:08:00 Emergency X KASIE PERSAUD [facility] [id number] [facility] 2023-04-27 12:49:00 2023-04-27 16:08:00 Emergency Kasie Persaud [facility] 1..840.114 350.1.13.10 4.2.7.2.686 [id number] [facility] 2023-04-27 00:00:00 2023-04-27 00:00:00 Case Management Tavia Mariscal [facility] 1..840.114 350.1.13.10 4.2.7.2.686 [id number] [facility] 2023-04-22 07:46:33 2023-04-22 23:59:00 Hospital Encounter Brooks Juan [facility] 1.0.114 350.1.13.10 4.2.7.2.686 [id number] [facility] 2023-04-22 07:46:20 2023-04-22 23:59:00 Outpatient R JUAN GUY [facility] [id number] [facility] 2023-04-22 07:46:20 2023-04-22 23:59:00 Hospital Encounter [facility] 1.84.114 350.1.13.10 4.2.7.2.686 [id number] [facility] 2023-04-22 00:00:00 2023-04-22 00:00:00 Outpatient R BROOKS [facility] [id number] [facility] 2023-04-14 08:00:00 2023-04-14 23:59:00 Hospital Encounter Juan Guy Kelsie Valdez [facility] 1.84.114 350.1.13.10 4.2.7.2.686 [id number] [facility] 2023-04-14 07:23:44 2023-04-14 23:59:00 Outpatient R JUAN GUY [facility] [id number] [facility] 2023-04-14 07:23:57 2023-04-14 07:59:00 Outpatient R BROOKS [facility] [id number] [facility] 2023-04-14 07:23:57 2023-04-14 07:59:00 [facility] 1.0.114 350.1.13.10 4.2.7.2.686 [id number] [facility] 2023-04-11 10:30:00 2023-04-11 11:00:00 Office Visit L[facility] 1.2.840.114 350.1.13.10 4.2.7.2.686 [id number] [facility] 2023-04-11 10:30:00 2023-04-11 10:30:00 Outpatient R CHRISTOPHER MARISCAL [facility] [id number] [facility] 2023-04-08 11:13:27 2023-04-08 11:13:27 Outpatient VANESSA [facility] [id number] Feliciano Crouch 2023-04-08 00:00:00 2023-04-08 00:00:00 Case Management [facility] 1.2.840.114 350.1.13.10 4.2.7.2.686 [id number] [facility] 2023-04-08 00:00:00 2023-04-08 00:00:00 Case Management [facility] 1.2.840.114 350.1.13.10 4.2.7.2.686 [id number] [facility] 2023-04-06 17:48:00 2023-04-07 15:20:00 Hospital Encounter Christine Black Michael Thanh [place], [facility] 1.2.840.114 350.1.13.10 4.2.7.2.686 [id number] [facility] 2023-04-06 10:20:45 2023-04-07 15:20:00 Outpatient [facility] [id number] [facility] 2023-04-06 10:01:24 2023-04-06 10:19:00 Hospital Encounter Christine Black [facility] 1.2.840.114 350.1.13.10 4.2.7.2.686 [id number] [facility] 2023-04-06 07:57:16 2023-04-06 10:00:00 [facility] 1.2.840.114 350.1.13.10 4.2.7.2.686 [id number] [facility] 2023-04-06 07:56:55 2023-04-06 07:56:55 Hospital Encounter Wayne, [facility] 1.2.840.114 350.1.13.10 4.2.7.2.686 [id number] [facility] 2023-04-04 00:00:00 2023-04-04 00:00:[address] [facility] 1.2.840.114 350.1.13.10 4.2.7.2.686 [id number] [facility] 2023-04-01 08:01:14 2023-04-01 23:59:00 Hospital Encounter [place], [facility] 1.2.840.114 350.1.13.10 4.2.7.2.686 [id number] [facility] 2023-04-01 08:00:39 2023-04-01 08:00:39 Hospital Encounter [place], Viktoriya [facility] 1.2.840.114 350.1.13.10 4.2.7.2.686 [id number] [facility] 2023-04-01 08:00:39 2023-04-01 08:00:39 Outpatient R VIKTORIYA HERNÁNDEZ [facility] [id number] [facility]-24 00:00:00 2023-03-24 00:00:00 Outpatient R RADIOLOGY [facility] [id number] [facility] 2023-03-10 11:00:00 2023-03-10 11:15:00 Director Client Visit Pob, [facility] Main Viktoriya Hernández [facility] 1.840.114 350.1.13.10 4.2.7.2.686 [id number] [facility] 2023-03-10 11:00:00 2023-03-10 11:00:00 Outpatient R VIKTORIYA HERNÁNDEZ [facility] [id number] [facility] 2023-03-10 08:53:50 2023-03-10 08:53:50 Outpatient [facility] [id number] Felician[address] [place] 2023-03-09 11:18:47 2023-03-09 11:18:47 Outpatient [facility] [id number] Feliciano Buchanan [place] 2023-03-03 08:21:09 2023-03-03 08:21:09 Outpatient [facility] [id number] Feliciano Buchanan [place] 2023-03-02 17:25:49 2023-03-02 17:25:49 Outpatient [facility] [id number] Feliciano Buchanan [place] 2023-02-21 00:00:00 2023-02-21 00:00:00 [facility] 1.84.114 350.1.13.10 4.2.7.2.686 [id number] [facility] 2023-02-16 14:00:00 2023-02-16 15:00:00 [facility]..114 350.1.13.10 4.2.7.2.686 [id number] [facility] 2023-02-16 14:00:00 2023-02-16 14:00:00 Outpatient R VIKTORIYA HERNÁNDEZ [facility] [id number] [facility] 2023-02-11 00:00:00 2023-02-11 00:00:00 Telephone [facility] 1..114 350.1.13.10 4.2.7.2.686 [id number] [facility] 2023-02-11 00:00:00 2023-02-11 00:00:00 Telephone Mariscal, [facility] 1.2.114 350.1.13.10 4.2.7.2.686 [id number] [facility] 2023-02-09 13:19:34 2023-02-09 13:19:34 Outpatient [facility] [id number] Feliciano Dewayne [place] 2023-02-01 00:00:00 2023-02-01 00:00:00 Case Management [facility] 1..114 350.1.13.10 4.2.7.2.686 [id number] [facility] 2023-01-19 08:59:09 2023-01-19 23:59:00 Outpatient R WAYNE CHRISTINE [facility] [id number] [facility] 2023-01-19 08:59:09 2023-01-19 23:59:00 Hospital Encounter Christine Black [facility] 1..114 350.1.13.10 4.2.7.2.686 [id number] [facility] 2023-01-03 11:00:00 2023-01-03 11:15:00 Director Client Visit [facility] Mariscal, [facility] 1..114 350.1.13.10 4.2.7.2.686 [id number] [facility] 2023-01-03 10:30:00 2023-01-03 11:00:00 Office Visit Mariscal, [facility] 1.2.840.114 350.1.13.10 4.2.7.2.686 [id number] [facility] 2023-01-03 10:30:00 2023-01-03 10:30:00 Outpatient CHRISTOPHER MULLIGAN [facility] [id number] [facility] 2022-11-12 00:00:00 2022-11-12 00:00:00 Outpatient R MARLON BLACKALAN [facility] [id number] [facility] 2022-10-27 16:28:29 2022-10-27 16:28:29 Outpatient VANESSA MENDEZ [id number] Feliciano Crouch 2022-10-18 07:16:21 2022-10-18 23:59:00 Hospital Encounter [facility] 1.2.840.114 350.1.13.10 4.2.7.2.686 [id number] [facility] 2022-10-18 07:15:30 2022-10-18 07:15:30 Hospital Encounter [facility] 1.2.840.114 350.1.13.10 4.2.7.2.686 [id number] [facility] 2022-10-18 07:14:49 2022-10-18 07:14:49 Hospital Encounter [facility] 1.2.840.114 350.1.13.10 4.2.7.2.686 [id number] [facility] 2022-10-18 07:14:13 2022-10-18 07:14:13 Hospital Encounter [facility] 1.2.840.114 350.1.13.10 4.2.7.2.686 [id number] [facility] 2022-10-18 07:13:05 2022-10-18 07:13:05 Outpatient R CHRISTINE BLACK [facility] [id number] [facility] 2022-10-18 07:13:05 2022-10-18 07:13:05 Hospital Encounter [facility] 1.2.840.114 350.1.13.10 4.2.7.2.686 [id number] [facility] 2022-10-12 00:00:00 2022-10-12 00:00:00 Case Management Loida talya [facility] 1.2.840.114 350.1.13.10 4.2.7.2.686 [id number] [facility] 2022-10-08 07:59:58 2022-10-08 23:59:00 Hospital Encounter [facility] 1.2840.114 350.1.13.10 4.2.7.2.686 [id number] [facility] 2022-10-08 06:56:12 2022-10-08 07:58:00 Outpatient R CHRISTOPHER MARISCAL [facility] [id number] [facility] 2022-10-08 06:56:12 2022-10-08 07:58:00 Hospital Encounter [facility] 1.2840.114 350.1.13.10 4.2.7.2.686 [id number] [facility] 2022-10-04 12:00:00 2022-10-04 23:59:00 Hospital Encounter Christopher Mariscal [facility] 1.2.840.114 350.1.13.10 4.2.7.2.686 [id number] [facility] 2022-10-04 11:15:00 2022-10-04 11:30:00 Director Client Visit [facility] 1.2.840.114 350.1.13.10 4.2.7.2.686 [id number] [facility] 2022-10-04 10:00:00 2022-10-04 10:43:50 Outpatient R LOIDA [facility] [id number] [facility] 2022-10-04 10:00:00 2022-10-04 10:43:50 Office Visit [facility] 1.2.840.114 350.1.13.10 4.2.7.2.686 [id number] [facility] 2022-09-29 00:00:00 2022-09-29 00:00:00 Telephone [facility] 1.2.840.114 350.1.13.10 4.2.7.2.686 [id number] [facility] 2022-09-28 00:00:00 2022-09-28 00:00:00 Telephone Hetal Pat [facility] 1.2.840.114 350.1.13.10 4.2.7.2.686 [id number] [facility] 2022-09-27 00:00:00 2022-09-27 00:00:00 Telephone [facility] 1.2.840.114 350.1.13.10 4.2.7.2.686 [id number] [facility] 2022-09-22 00:00:00 2022-09-22 00:00:00 Multidisci plinary Conference [facility] 1.2.840.114 350.1.13.10 4.2.7.2.686 [id number] [facility] 2022-09-10 09:58:10 2022-09-10 09:58:10 Outpatient [facility] [id number] Feliciano Crouch 2022-09-03 14:37:41 2022-09-03 14:37:41 Outpatient [facility] [id number] Feliciano Crouch 2022-09-03 00:00:00 2022-09-03 00:00:00 Telephone Hetal Pat [facility] 1.2.840.114 350.1.13.10 4.2.7.2.686 [id number] [facility] 2022-09-01 00:00:00 2022-09-01 00:00:00 Outpatient R CHRISTOPHER MARISCAL [facility] [id number] [facility] 2022-08-25 08:12:03 2022-08-25 23:59:00 Outpatient R GREG MARISCALHIF [facility] [id number] [facility] 2022-08-25 08:12:03 2022-08-25 23:59:00 Hospital Encounter Christopher Mariscal [facility] 1.2.840.114 350.1.13.10 4.2.7.2.686 [id number] [facility] 2022-08-25 08:04:40 2022-08-25 08:11:00 Hospital Encounter Christopher Mariscal [facility] 1.2.840.114 350.1.13.10 4.2.7.2.686 [id number] [facility] 2022-08-25 08:04:17 2022-08-25 08:11:00 Hospital Encounter Christopher Mariscal [facility] 1.2.840.114 350.1.13.10 4.2.7.2.686 [id number] [facility] 2022-08-25 08:02:32 2022-08-25 08:03:00 Hospital Encounter Christopher Mariscal [facility] 1.2.840.114 350.1.13.10 4.2.7.2.686 [id number] [facility] 2022-08-25 00:00:00 2022-08-25 00:00:00 Telephone Hetal Pat [facility] [place] [facility] 1.2.840.114 350.1.13.10 4.2.7.2.686 [id number] [facility] 2022-07-28 00:00:00 2022-07-28 00:00:00 Orders Only Doctor Unassigned, [place] [facility] 1.2.840.114 350.1.13.10 4.2.7.2.686 [id number] [facility] 2022-07-08 11:00:00 2022-07-08 15:59:50 [id number] 2022-07-08 11:30:00 2022-07-08 11:45:00 Director Client Visit Lab, [facility] Loida [facility] 1.2840.114 350.1.13.10 4.2.7.2.686 [id number] [facility] 2022-07-08 11:00:00 2022-07-08 11:30:00 Office Visit [place] [facility] 1.2.840.114 350.1.13.10 4.2.7.2.686 [id number] [facility] 2022-07-08 00:00:00 2022-07-08 00:00:00 Telephone [place] [facility] 1.2.840.114 350.1.13.10 4.2.7.2.686 [id number] [facility] 2022-07-01 16:09:47 2022-07-01 16:09:47 Outpatient [facility] [id number] 1201 Feliciano Crouch 2022-07-01 00:00:00 2022-07-01 00:00:00 Outpatient Visit [id number] 2022-06-30 00:00:00 2022-06-30 00:00:00 [facility] [place] [facility] 1.2.840.114 350.1.13.10 4.2.7.2.686 [id number] [facility] 2022-06-30 00:00:00 2022-06-30 00:00:00 Telephone Mariscal [facility] 1.2.840.114 350.1.13.10 4.2.7.2.686 [id number] [facility] 2022-06-28 00:00:00 2022-06-28 00:00:00 Telephone Mariscal [facility] 1.2.840.114 350.1.13.10 4.2.7.2.686 [id number] [facility] 2022-06-08 00:00:00 2022-06-08 00:00:00 Telephone Mariscal, [facility] [place] [facility] [place] [facility] 1.2.840.114 350.1.13.10 4.2.7.2.686 [id number] [facility] 2022-06-03 00:00:00 2022-06-03 00:00:00 Outpatient R CHRISTOPHER MARISCAL [facility] [id number] [facility] 2022-06-01 00:00:00 2022-06-01 00:00:00 Telephone Greg Mariscalhif [facility] [place] [facility] 1.2.840.114 350.1.13.10 4.2.7.2.686 [id number] [id number] [facility] 2022-05-20 13:15:00 2022-05-20 13:30:00 Director Client Visit Lab, [facility] [place] [facility] 1.2.840.114 350.1.13.10 4.2.7.2.686 [id number] [id number] [facility] 2022-05-20 11:30:00 2022-05-20 12:00:00 Office Visit [place] [facility] [place] [facility] 1.2.840.114 350.1.13.10 4.2.7.2.686 [id number] [facility] 2022-05-20 11:30:00 2022-05-20 11:30:00 [facility] [id number] [facility] 2022-05-05 00:00:00 2022-05-05 00:00:00 Telephone Christopher Mariscal [facility] 1.2.840.114 350.1.13.10 4.2.7.2.686 [id number] [facility] 2022-05-04 00:00:00 2022-05-04 00:00:00 Orders Only Doctor Unassigned, [place] [facility] 1.2.840.114 350.1.13.10 4.2.7.2.686 [id number] [facility] 2022-04-07 00:00:00 2022-04-07 00:00:00 Outpatient Visit [id number] 2022-03-03 00:00:00 2022-03-03 00:00:00 Outpatient Visit [id number] 2021-12-15 15:52:00 2021-12-17 21:23:00 Outpatient X LEX MEHTA [facility] [id number] [facility] 2021-12-15 15:52:00 2021-12-17 21:23:00 [facility] Brigida Claros, Boyd Me[facility], [facility] 1..840.114 350.1.13.10 4.2.7.2.686 [id number] [facility] 2021-11-06 00:00:00 2021-11-06 00:00:00 Transition of Care Davidson Nickie DONAVAN RACH WHEELER 1.2.840.114 350.1.13.10 4.2.7.2.686 [id number] [facility] 2021-11-03 21:06:00 2021-11-05 18:36:00 Outpatient X ARNOL CAREY [facility] [id number] [facility] 2021-11-03 21:06:00 2021-11-05 18:36:00 Hospital Encounter Sheba Lott Adnan Abdullah, Yaman [facility] 1.2.840.114 350.1.13.10 4.2.7.2.686 [id number] [facility] Results Test Description Test Time Test Comments Results Result Co mments Source CREATINE [id number] 20:15:11* Test Item Value Reference Range Interpretation Comme nts CK (test code = 8936060572) 34 U/L 33-194 Lab Interpretation (test cod e = 24317-2) [facility] [id number] 20:03:43* Test Item Value Reference Range Interpretation Comme nts WBC (test code = 6690-2) 4.57 See_Comment [Automated messa ge] The system which generated this result transmitted reference range: 4.20 - 10.70 10*3/?L. The reference range was not used to interpret this result as normal/abnormal. RBC (test code = 789-8) 4.19 See_Comment L [Automated messa ge] The system which generated this result transmitted reference range: 4.26 - 5.52 10*6/?L. The reference range was not used to interpret this result as normal/abnormal. HGB (test code = 718-7) 13.9 g/dL 12.2-16.4 HCT (test code = 4544-3) 40.0 % 38.4-49.3 MCV (test code = 787-2) 95.5 fL 81.7-95.6 MCH (test code = 785-6) 33.2 pg 26.1-32.7 H MCHC (test code = 786-4) 34.8 g/dL 31.2-35.0 RDW-SD (test code = 92140-3) 48.6 fL 38.5-51.6 RDW-CV (test code = 788-0) 13.8 % 12.1-15.4 PLT (test code = 777-3) 86 See_Comment L [Automated messa ge] The system which generated this result transmitted reference range: 150 - 328 10*3/?L. The reference range was not used to interpret this result as normal/abnormal. MPV (test code = 25594-9) 9.6 fL 9.8-13.0 L NRBC/100 WBC (test code = 1007976895) 0.0 See_Comment [Automated [employer] ssage] The system which generated this result transmitted reference range: 0.0 - 10.0 /100 WBCs. The reference range was not used to interpret this result as normal/abnormal. NRBC x10^3 (test code = 9900309475) See_Comment [Automated messa ge] The system which generated this result transmitted reference range: 10*3/?L. The reference range was not used to interpret this result as normal/abnormal. GRAN MAT (NEUT) % (test code = 770-8) 71.5 % IMM GRAN % (test code = 3419586415) 2.00 % LYMPH % (test code = 736-9) 3.3 % MONO % (test code = 5905-5) 18.6 % EOS % (test code = 713-8) 3.9 % BASO % (test code = 706-2) 0.7 % GRAN MAT x10^3(ANC) (test code = 7271473576) 3.27 10*3/uL 1.99-6.95 IMM GRAN x10^3 (test code = 3929059075) 0.09 10*3/uL 0.00-0.06 H LYMPH x10^3 (test code = 731-0) 0.15 10*3/uL 1.09-3.23 L MONO x10^3 (test code = 742-7) 0.85 10*3/uL 0.36-1.02 EOS x10^3 (test code = 711-2) 0.18 10*3/uL 0.06-0.53 BASO x10^3 (test code = 704-7) 0.03 10*3/uL 0.01-0.09 REACT LYMPHS (test code = 9129012169) Rare Lab Interpretation (test code = 06851-6) [id number] 19:18:40* Test Item Value Reference Range Interpretation Comme nts TROPONIN I (test code = 5336842296) 0.005 ng/mL <=0.034 TIFFANY (test code = TIFFANY) Reference (Normal) Range (defined by the 99th percentile reference [...] patient's use of biotin. Lab Interpretation (test code = 95650-7) [facility]OLIC PANEL (15041)2023-04-27 19:06:59* Test Item Value Reference Range Interpretation Comme nts NA (test code = 7092674121) 132 mmol/L 135-145 L K (test code = 3917123063) 4.1 mmol/L 3.5-5.0 CL (test code = 2308551304) 103 mmol/L 98-108 CO2 TOTAL (test code = 5112127370) 20 mmol/L 23-31 L AGAP (test code = 3351395016) 9 2-16 BUN (test code = 3217512992) 19 mg/dL 7-23 GLUCOSE (test code = 0421258745) 132 mg/dL 70-110 H CREATININE (test code = 8397589778) 0.45 mg/dL 0.60-1.25 L TOTAL BILI (test code = 3946864084) 2.0 mg/dL 0.1-1.1 H CALCIUM (test code = 8299584979) 8.5 mg/dL 8.6-10.6 L T PROTEIN (test code = 6529990866) 8.0 g/dL 6.3-8.2 ALBUMIN (test code = 3415969127) 3.5 g/dL 3.5-5.0 ALK PHOS (test code = 9678706490) 128 U/L 34-122 H ALTv (test code = 1742-6) 66 U/L 5-50 H AST(SGOT) (test code = 7383929231) 63 U/L 13-40 H eGFR (test code = 1761849646) 188.5 mL/min/1.73m2 TIFFANY (test code = TIFFANY) Association [...] imaging tests). Lab Interpretation (test code = 46705-7) [facility] 19:06:38* Test Item Value Reference Range Interpretation Comme nts LIPASE (test code = 1500610315) 295 U/L 0-220 H Lab Interpretation (test cod e = 05133-0) Abnormal [facility] CenterAMMONIA, [id number] 18:59:18* Test Item Value Reference Range Interpretation Comme nts AMMONIA (test code = 6319827992) 57 umol/L 9-33 H Slight hemolysis Lab Interpretation (test code = 04852-3) Abnormal [facility] CenterABG+COOX+NA+K+GLU+CA2+2023-04-07 01:55:25* Test Item Value Reference Range Interpretation Comme nts PH (test code = 2) 7.38 7.35-7.45 PCO2 (test code = 7804919253) 44 See_Comment [Automated messa ge] The system which generated this result transmitted reference range: 35 - 45 mmHg. The reference range was not used to interpret this result as normal/abnormal. PO2 (test code = 9391182745) 141 See_Comment H [Automated messa ge] The system which generated this result transmitted reference range: 80 - 100 mmHg. The reference range was not used to interpret this result as normal/abnormal. HCO3 (test code = 3695258610) 25 See_Comment [Automated messa ge] The system which generated this result transmitted reference range: 22 - 26 mEq/L. The reference range was not used to interpret this result as normal/abnormal. BE (test code = 4652075713) -0.4 See_Comment [Automated messa ge] The system which generated this result transmitted reference range: -3.0 - 3.0 mEq/L. The reference range was not used to interpret this result as normal/abnormal. THB (test code = 0178249477) 14.8 g/dL 13.5-18.0 %O2HB (test code = 5547545494) 96.7 % 94.0-99.0 %COHB ART (test code = 9766516386) 2.0 % 0.0-1.5 H %METHB ART (test code = 9942375803) 0.2 % 0.4-1.5 L VOL%O2 ART (test code = 4947663000) 20.3 % 15.0-23.0 QUES NA (test code = 5122635646) 133 mmol/L 135-145 L K+ (test code = 9371242268) 5.7 mmol/L 3.5-5.0 H AC CA IONZ (test code = 8736508229) 4.40 mg/dL 4.50-5.30 L GLUCOSE (test code = 5792511464) 78 mg/dL 70-110 Lab Interpretation (test code = 55363-1) Abnormal [facility] Center[facility]G+COOX+NA+K+GLU+CA2+2023-04-07 01:55:25* Test Item Value Reference Range Interpretation Comme nts PH (test code = 2) 7.38 7.35-7.45 PCO2 (test code = 5532999020) 44 See_Comment [Automated messa ge] The system which generated this result transmitted reference range: 35 - 45 mmHg. The reference range was not used to interpret this result as normal/abnormal. PO2 (test code = 6302968396) 141 See_Comment H [Automated messa ge] The system which generated this result transmitted reference range: 80 - 100 mmHg. The reference range was not used to interpret this result as normal/abnormal. HCO3 (test code = 5667455718) 25 See_Comment [Automated messa ge] The system which generated this result transmitted reference range: 22 - 26 mEq/L. The reference range was not used to interpret this result as normal/abnormal. BE (test code = 0700709601) -0.4 See_Comment [Automated messa ge] The system which generated this result transmitted reference range: -3.0 - 3.0 mEq/L. The reference range was not used to interpret this result as normal/abnormal. THB (test code = 7698718842) 14.8 g/dL 13.5-18.0 %O2HB (test code = 6029831262) 96.7 % 94.0-99.0 %COHB ART (test code = 1514951124) 2.0 % 0.0-1.5 H %METHB ART (test code = 5970590202) 0.2 % 0.4-1.5 L VOL%O2 ART (test code = 2691045377) 20.3 % 15.0-23.0 QUES NA (test code = 0833132965) 133 mmol/L 135-145 L K+ (test code = 2641352440) 5.7 mmol/L 3.5-5.0 H AC CA IONZ (test code = 0043849929) 4.40 mg/dL 4.50-5.30 L GLUCOSE (test code = 0126723531) 78 mg/dL 70-110 Lab Interpretation (test code = 39322-5) Abnormal [facility] CenterTESTOSTERONE2023-08-11 05:26:27* Test Item Value Reference Range Interpretation Comme nts TESTOSTERONE (test code = 2830) 1092 NG/DL 300-720 H UNLESS OTHERWISE INDICATED, ALL TESTING PERFORMED AT [facility] [address] [place] [address] QUAL FIELD MANAGER: QUENTIN CARTER M.D. CLIA NUMBER [id number] [facility] [place]. [id number] FSH + LH [id number] 05:25:43* Test Item Value Reference Range Interpretation Comme nts FOLLICLE STIM HORMONE (test code = 2700) 11.7 IU/L 1.5-12.4 LUTEINIZING HORMONE (test co de = 2776) 12.5 IU/L 1.2-8.6 H [id number] 02:52:34* Test Item Value Reference Range Interpretation Comme nts TESTOSTERONE (test code = 2830) 1083 NG/DL 300-720 H UNLESS OTHERWISE INDICATED, ALL TESTING PERFORMED AT [facility] [address] [place] [address] QUAL FIELD MANAGER: QUENTIN CARTER M.D. CLIA NUMBER [id number] [place]. [id number] HEPATITIS PANEL, [id number] 04:17:42* Test Item Value Reference Range Interpretation Comme nts HEPATITIS A IgM (test code = 07099) NON-REACTIVE NON-REACTIVE HEPATITIS B CORE IgM (test code = 4644) NON-REACTIVE NON-REACTIVE HEPATITIS B SURF AG (test code = 2739) NON-REACTIVE NON-REACTIVE HEPATITIS C ANTIBODY (test code = 4675) REACTIVE NON-REACTIVE A INTERPRETATION HEPATITIS A: (test code = 2552) (NOTE) Hepatitis A serology shows no evidence of acute hepatitis A. INTERPRETATION HEPATITIS B: (test code = 43914) (NOTE) Hepatitis B serology shows no evidence of acute hepatitis B andno indication of exposure to hepatitis B virus in the previous tucker eight months. INTERPRETATION HEPATITIS C: (test code = 37402) (NOTE) Hepatitis C serology is consistent with exposure to hepatitis Cvirus. The CDC recommends performing a supplemental confirmatory teston initial positive hepatitis C antibody tests. HCV PCR quantitativecan be used to confirm these results on a new sample (See MMWR, 2003;52 RR-3). HEMOGLOBIN [id number] 03:59:41* Test Item Value Reference Range Interpretation Comme nts HEMOGLOBIN A1c (test code = 04513) 5.1 % 4.2-5.6 UNLESS OTHERWISE INDICATED, ALL TESTING PERFORMED AT [facility] [address] [place] [address] QUAL FIELD MANAGER: QUENTIN CARTER M.D. CLIA NUMBER [id number] [place]. [id number] CBC W/AUTO DIFF WITH [id number] 03:32:08* Test Item Value Reference Range Interpretation Comme nts WBC (test code = 1001) 3.8 K/UL 3.5-11.0 RBC (test code = 1002) 4.36 M/UL 4.50-6.10 L HEMOGLOBIN (test code = 1003) 13.9 G/DL 13.5-17.0 HEMATOCRIT (test code = 1004) 42.0 % 40.0-51.0 MCV (test code = 1005) 96.3 fL 80.0-99.0 MCH (test code = 1006) 31.9 PG 25.0-33.0 MCHC (test code = 1007) 33.1 G/DL 31.0-36.0 RDW (test code = 1038) 13.2 % 11.5-15.0 NEUTROPHILS (test code = 1008) 72.6 % LYMPHOCYTES (test code = 1010) 10.3 % MONOCYTES (test code = 1011) 11.6 % EOSINOPHILS (test code = 1012) 4.5 % BASOPHILS (test code = 1013) 0.5 % IMMATURE GRANULOCYTES (test code = 1036) 0.5 % NUCLEATED RBCS (test code = 1065) 0.0 /100 WBC'S See_Comment [Automated [employer]] The system which generated this result transmitted reference range: 0.0. The reference range was not used to interpret this result as normal/abnormal. PLATELET COUNT (test code = 1015) 85 K/UL 130-400 L ABSOLUTE NEUTROPHILS (test code = 1066) 2.76 K/UL 1.50-7.50 ABSOLUTE LYMPHOCYTES (test code = 1067) 0.39 K/UL 1.00-4.00 L ABSOLUTE MONOCYTES (test code = 1068) 0.44 K/UL 0.20-1.00 ABSOLUTE EOSINOPHILS (test code = 1040) 0.17 K/UL 0.00-0.50 ABSOLUTE BASOPHILS (test code = 1069) 0.02 K/UL 0.00-0.20 ABS IMMATURE GRANULOCYTES (test code = 1020) 0.02 K/UL 0.00-0.10 ABS NUCLEATED RBCS (test code = 68118) 0.00 K/UL 0.00-0.11 COMPREHENSIVE METABOLIC [id number] 03:29:01* Test Item Value Reference Range Interpretation Comme nts GLUCOSE (test code = 2217) 79 MG/DL 70-99 BUN (test code = 2208) 13 MG/DL 8-23 CREATININE (test code = 2214) 0.53 MG/DL 0.80-1.40 L eGFR (2020 CKD-EPI) (test code = 54441) 111 ML/MIN/1.73 >60 CALC BUN/CREAT (test code = 2235) 25 RATIO 6-28 SODIUM (test code = 2231) 136 MEQ/L 133-146 POTASSIUM (test code = 8) 4.2 MEQ/L 3.5-5.4 CHLORIDE (test code = 2215) 101 MEQ/L 95-107 CARBON DIOXIDE (test code = 2205) 25 MEQ/L 19-31 CALCIUM (test code = 2208) 9.2 MG/DL 8.5-10.5 PROTEIN, TOTAL (test code = 2228) 7.7 G/DL 6.1-8.3 ALBUMIN (test code = 2200) 3.6 G/DL 3.5-5.2 CALC GLOBULIN (test code = 0) 4.1 G/DL 1.9-3.7 H CALC A/G RATIO (test code = 2233) 0.9 RATIO 1.0-2.6 L BILIRUBIN, TOTAL (test code = 2206) 1.3 MG/DL See_Comment H [Automated me ssage] The system which generated this result transmitted reference range: <=1.2. The reference range was not used to interpret this result as normal/abnormal. ALKALINE PHOSPHATASE (test code = 2203) 113 U/L 40-123 AST (test code = 2217) 120 U/L 9-50 H ALT (test code = 2218) 73 U/L 5-50 H LIPID [id number] 03:29:01* Test Item Value Reference Range Interpretation Comme nts CHOLESTEROL (test code = 2210) 169 MG/DL <200 TRIGLYCERIDES (test code = 2232) 49 MG/DL <150 HDL CHOLESTEROL (test code = 2219) 63 MG/DL >39 CALC LDL CHOL (test code = 2236) 92 MG/DL <100 NOTE: CALCULATED LDL IS BASED ON NATIVIDAD-PITTS METHOD WHICHINCLUDES ADJUSTABLE TRIGLYCERIDE:VLDL CHOLESTEROL RATIO.THIS FACTOR VARIES BY MEASURED TRIGLYCERIDE AND NON-HDLCHOLESTEROL CONCENTRATIONS WITH INCREASED CALCULATED LDL SEENIN HIGHER TRIGLYCERIDE OR LOWER NON-HDL SPECIMENS. FOR MOREINFORMATION, SEE CLIENT ANNOUNCEMENT AT [email or web address] RISK RATIO LDL/HDL (test code = 2238) 1.46 RATIO <3.55 OCCULT BLD,FECAL,IMMUNOASSAY [id number] 11:08:20* Test Item Value Reference Range Interpretation Comme nts OCCULT BLD, FECAL (test code = 41890) NEGATIVE NEGATIVE [facility] has important pathology staff changes effective 09/29/2022. New pathology staff will provide uninterrupted, excellent patient care and clinical consultation. See URL: [email or web address]. UNLESS OTHERWISE INDICATED, ALL TESTING PERFORMED AT [facility] [address] [place] [address] CLIA: [id number], CAP: [id number] BASIC METABOLIC PANEL (NA, K, CL, CO2, GLUCOSE, BUN, CREATININE, CA)2021-12-17 18:59:33* Test Item Value Reference Range Interpretation Comme nts NA (test code = 1270526596) 138 mmol/L 135-145 K (test code = 3158586039) 4.2 mmol/L 3.5-5.0 CL (test code = 4762392576) 97 mmol/L 98-108 L CO2 TOTAL (test code = 0164318250) 38 mmol/L 23-31 H AGAP (test code = 1045926526) 2-16 BUN (test code = 9225649979) 16 mg/dL 7-23 GLUCOSE (test code = 3549410953) 71 mg/dL 70-110 CREATININE (test code = 5596247200) 0.65 mg/dL 0.60-1.25 CALCIUM (test code = 2376074670) 8.8 mg/dL 8.6-10.6 eGFR (test code = 3902454997) mL/min/1.73m2 TIFFANY (test code = TIFFANY) Association [...] imaging tests). Lab Interpretation (test code = 20289-8) Abnormal [facility] METABOLIC PANEL (NA, K, CL, CO2, GLUCOSE, BUN, CREATININE, CA)2021-12-17 01:21:47* Test Item Value Reference Range Interpretation Comme nts NA (test code = 2491830865) 135 mmol/L 135-145 K (test code = 3535195813) 3.7 mmol/L 3.5-5.0 CL (test code = 4012038264) 100 mmol/L 98-108 CO2 TOTAL (test code = 1263309286) 33 mmol/L 23-31 H AGAP (test code = 8514873732) 2-16 BUN (test code = 9097145760) 14 mg/dL 7-23 GLUCOSE (test code = 0074187898) 112 mg/dL 70-110 H CREATININE (test code = 6048853182) 0.65 mg/dL 0.60-1.25 CALCIUM (test code = 0144458499) 8.3 mg/dL 8.6-10.6 L eGFR (test code = 0166930563) mL/min/1.73m2 TIFFANY (test code = TIFFANY) Association [...] imaging tests). Lab Interpretation (test code = 24226-4) [facility]normal [facility] CenterHCV [id number] 00:35:35* Test Item Value Reference Range Interpretation Comme [facility] HCV Ab (test code = 30650-4) Positive HCV Semi-Quantitative (test code = 09297-0) TIFFANY (test code = TIFFANY) Positive for HCV antibody. This specimen has been reflexed to qualitative PCR test and submitted to [facility]. ?A report will be issued by that laboratory. ?If any questions, contact the Clinical Chemistry Director airway traffic controller at [phone].APRI score < 0.5: Suggestive of little to no fibrosisAPRI score > 1.5: Suggestive of moderate to severe fibrosisAPRI score > 2.0: Highly suggestive of cirrhosis. [facility] CenterTHYROID STIMULATING [id number] 04:08:35 * Test Item Value Reference Range Interpretation Comme nts TSH (test code = 0389298601) See_Comment [Automated [employer]] The system which generated this result transmitted reference range: 0.45 - 4.70 mIU/L. The reference range was not used to interpret this result as normal/abnormal. Lab Interpretation (test code = 59421-8) Normal [facility] CenterN-TERMINAL [id number] 01:35:18* Test Item Value Reference Range Interpretation Comme [facility] NT-proBNP (test code = 4178960824) 74 pg/mL See_Comment [Automated message] The system which generated this result transmitted reference range: <=125. The reference range was not used to interpret this result as normal/abnormal. TIFFANY (test code = TIFFANY) Biotin has been reported to cause a negative bias, interpret results relative to patient's use of biotin. Lab Interpretation (test code = 96936-0) Normal [facility] CenterTROPONIN [id number] 00:16:20* Test Item Value Reference Range Interpretation Comments TROPONIN I (test code = 6812060817) 0.015 ng/mL See_Comment [Automated message] The system which generated this result transmitted reference range: <=0.034. The reference range was not used to interpret this result as normal/abnormal. TIFFANY (test code = TIFFANY) Reference (Normal) Range (defined by the 99th percentile reference [...] patient's use of biotin. Lab Interpretation (test code = 42303-5) Normal [facility]. METABOLIC PANEL (07102)2021-12-15 23:32:43* Test Item Value Reference Range Interpretation Comme nts NA (test code = 8000484133) 134 mmol/L 135-145 L K (test code = 3717148947) 4.8 mmol/L 3.5-5.0 Slight hemolysis CL (test code = 4392757564) 99 mmol/L 98-108 CO2 TOTAL (test code = 5832916476) 28 mmol/L 23-31 AGAP (test code = 8225632039) 2-16 BUN (test code = 0304953429) 12 mg/dL 7-23 Slight hemolysis GLUCOSE (test code = 7913708821) 84 mg/dL 70-110 CREATININE (test code = 0911756675) 0.58 mg/dL 0.60-1.25 L TOTAL BILI (test code = 0088181156) 2.4 mg/dL 0.1-1.1 H CALCIUM (test code = 2958641247) 8.7 mg/dL 8.6-10.6 T PROTEIN (test code = 0215571767) 6.4 g/dL 6.3-8.2 ALBUMIN (test code = 2681919606) 3.4 g/dL 3.5-5.0 L ALK PHOS (test code = 7478730449) 101 U/L 34-122 Slight hemolysis ALTv (test code = 1742-6) 31 U/L 5-50 AST(SGOT) (test code = 7727027078) 60 U/L 13-40 H Slight hemolysis eGFR (test code = 9728237490) mL/min/1.73m2 TIFFANY (test code = TIFFANY) Association [...] imaging tests). Lab Interpretation (test code = 13243-0) Abnormal [facility] CenterLIPASE, [id number] 23:32:43* Test Item Value Reference Range Interpretation Comme nts LIPASE (test code = 0802117904) 155 U/L 0-220 Lab Interpretation (test cod e = 84675-5) Normal [facility] CenterCB WITH [id number] 23:10:57* Test Item Value Reference Range Interpretation Comme nts WBC (test code = 6690-2) See_Comment L [Automated [employer]] The system which generated this result transmitted reference range: 4.20 - 10.70 10*3/?L. The reference range was not used to interpret this result as normal/abnormal. RBC (test code = 789-8) See_Comment [Automated [employer]] The system which generated this result transmitted reference range: 4.26 - 5.52 10*6/?L. The reference range was not used to interpret this result as normal/abnormal. HGB (test code = 718-7) 13.7 g/dL 12.2-16.4 HCT (test code = 4544-3) 41.9 % 38.4-49.3 MCV (test code = 787-2) 95.2 fL 81.7-95.6 MCH (test code = 785-6) 31.1 pg 26.1-32.7 MCHC (test code = 786-4) 32.7 g/dL 31.2-35.0 RDW-SD (test code = 90007-1) 50.9 fL 38.5-51.6 RDW-CV (test code = 788-0) 14.6 % 12.1-15.4 PLT (test code = 777-3) See_Comment L [Automated messa ge] The system which generated this result transmitted reference range: 150 - 328 10*3/?L. The reference range was not used to interpret this result as normal/abnormal. MPV (test code = 99342-7) 9.5 fL 9.8-13.0 L IPF % (test code = 1699050818) 1.3 % 1.2-10.7 Platelet count measured by fluorescence method. NRBC/100 WBC (test code = 5636651939) See_Comment [Automated [employer] ssage] The system which generated this result transmitted reference range: 0.0 - 10.0 /100 WBCs. The reference range was not used to interpret this result as normal/abnormal. NRBC x10^3 (test code = 2078066475) <0.01 See_Comment [Automated [employer]] The system which generated this result transmitted reference range: 10*3/?L. The reference range was not used to interpret this result as normal/abnormal. GRAN MAT (NEUT) % (test code = 770-8) 55.2 % IMM GRAN % (test code = 7937067720) 1.00 % LYMPH % (test code = 736-9) 25.7 % MONO % (test code = 5905-5) 14.7 % EOS % (test code = 713-8) 2.9 % BASO % (test code = 706-2) 0.5 % GRAN MAT x10^3(ANC) (test code = 7117991854) 2.30 10*3/uL 1.99-6.95 IMM GRAN x10^3 (test code = 8380167425) 0.04 10*3/uL 0.00-0.06 LYMPH x10^3 (test code = 731-0) 1.07 10*3/uL 1.09-3.23 L MONO x10^3 (test code = 742-7) 0.61 10*3/uL 0.36-1.02 EOS x10^3 (test code = 711-2) 0.12 10*3/uL 0.06-0.53 BASO x10^3 (test code = 704-7) <0.03 0.01-0.09 Lab Interpretation (test code = 28099-0) [facility]TOTAL CHOLESTEROL, TRIGLYCERIDES, HDL)2021-11-05 17:05:42* Test Item Value Reference Range Interpretation Comme nts CHOL (test code = 4751858131) 186 mg/dL 120-200 HDL (test code = 3862488825) 45 mg/dL >40 HDLC RATIO (test code = 3508723179) See_Comment [[employer]] The system which generated this result transmitted reference range: <=5.0. The reference range was not used to interpret this result as normal/abnormal. TRIG (test code = 5566089342) 64 mg/dL 30-170 LDL CHOL (test code = 75397-9) 128 mg/dL See_Comment [[employer]] The system which generated this result transmitted reference range: <=160. The reference range was not used to interpret this result as normal/abnormal. VLDL (test code = [id number]) 13 mg/dL 5-60 Lab Interpretation (test code = 19395-4) Normal [facility]. METABOLIC PANEL (13956)2021-11-05 17:05:21* Test Item Value Reference Range Interpretation Comme nts NA (test code = 9919441661) 138 mmol/L 135-145 K (test code = 7493150568) 4.6 mmol/L 3.5-5.0 CL (test code = 3324243850) 104 mmol/L 98-108 CO2 TOTAL (test code = 3249314158) 30 mmol/L 23-31 AGAP (test code = 0314589686) 2-16 BUN (test code = 8867764495) 20 mg/dL 7-23 GLUCOSE (test code = 6465090656) 102 mg/dL 70-110 CREATININE (test code = 5794045223) 0.63 mg/dL 0.60-1.25 TOTAL BILI (test code = 6712055739) 1.2 mg/dL 0.1-1.1 H CALCIUM (test code = 0083687942) 9.0 mg/dL 8.6-10.6 T PROTEIN (test code = 6419757238) 6.6 g/dL 6.3-8.2 ALBUMIN (test code = 5729609996) 3.2 g/dL 3.5-5.0 L ALK PHOS (test code = 1418945578) 75 U/L 34-122 ALTv (test code = 1742-6) 35 U/L 5-50 AST(SGOT) (test code = 1660952362) 39 U/L 13-40 eGFR (test code = 1693009187) mL/min/1.73m2 TIFFANY (test code = TIFFANY) Association [...] imaging tests). Lab Interpretation (test code = 59472-9) [facility]:05:21* Test Item Value Reference Range Interpretation Comme nts MAGNESIUM (test code = 0077023932) 1.9 mg/dL 1.7-2.4 Lab Interpretation (test cod e = 80045-9) [facility] CenterTHY[facility] STIM[facility] [id number] 12:35:38 * Test Item Value Reference Range Interpretation Comme nts TSH (test code = 4512786779) See_Comment [Automated [employer]] The system which generated this result transmitted reference range: 0.45 - 4.70 mIU/L. The reference range was not used to interpret this result as normal/abnormal. Lab Interpretation (test code = 05177-0) [facility]FR [id number] 12:22:17* Test Item Value Reference Range Interpretation Comme nts FREE T4 (test code = 2732943176) See_Comment [Automated [employer]] The system which generated this result transmitted reference range: 0.78 - 2.20 ng/dL:. The reference range was not used to interpret this result as normal/abnormal. Lab Interpretation (test code = 38366-4) [facility]TR[facility] [id number] 12:16:59* Test Item Value Reference Range Interpretation Comments TROPONIN I (test code = 7897353821) 0.026 ng/mL See_Comment [Automated message] The system which generated this result transmitted reference range: <=0.034. The reference range was not used to interpret this result as normal/abnormal. TIFFANY (test code = TIFFANY) Reference (Normal) Range (defined by the 99th percentile reference [...] patient's use of biotin. Lab Interpretation (test code = 13158-8) [facility] [id number] 12:13:58* Test Item Value Reference Range Interpretation Comme nts NT-proBNP (test code = 7927943913) 228 pg/mL See_Comment H [Automated message] The system which generated this result transmitted reference range: <=125. The reference range was not used to interpret this result as normal/abnormal. TIFFANY (test code = TIFFANY) Biotin has been reported to cause a negative bias, interpret results relative to patient's use of biotin. Lab Interpretation (test code = 82124-5) [facility] CenterTran[facility]hor[facility] (TTE)2021-11-05 00:59:55* Test Item Value Reference Range Interpretation Comme nts LVIDD (test code = 7444763053) 4.50 cm IVS (test code = 0363582290) 1.10 cm Interventricular Septum Diastolic Thickness by 2D (test code = 0298256) 1.10 cm LVPWD (test code = 8663716287) 1.24 cm PW (test code = 9776869982) 1.24 cm 0.6-1.1 LVOT diameter (test code = 4307415590) 1.92 cm ACS (test code = 6735721390) 1.82 cm Ao root annulus (test code = 3352204442) 3.5 cm Ao root diam (test code = 7200191662) 3.50 cm Aortic root (test code = 2750787608) 3.5 cm LA size (test code = 8397410743) 4.6 cm E wave decelartion time (test code = 7751048409) 0.21 s MV Peak E Catherine (test code = 4207623995) 64.9 cm/s MV Peak A Catherine (test code = 1966450511) 83.8 cm/s E/A ratio (test code = 0479149170) ratio MV Prop V (test code = 8981348333) 65.80 cm/s Tapse (test code = 8420123319) 1.92 cm LVOT stroke volume (test code = 4628744049) 67.60 cm3 LVOT peak catherine (test code = 8241524904) 110.2 cm/s LVOT mn grad (test code = 3778514324) mmHg AV LVOT peak gradient (test code = 2170265910) mmHg LVOT peak VTI (test code = 1307587989) 23.3 cm LV V1 mean (test code = 7655890839) 62.80 cm/s Aortic valve mean velocity (test code = 9366272130) 129.2 cm/s Ao peak catherine (test code = 3443638756) 230.1 cm/s Ao VTI (test code = 5504319073) 39.0 cm AV area by cont VTI (test code = 7073391704) 1.7 cm2 AV area peak catherine (test code = 9566782069) 1.4 cm2 Ao max PG (test code = 4150189366) 21.20 mm[Hg] AV peak gradient (test code = 4186765831) mmHg AV valve area (test code = 9120813329) 1.73 cm2 AV mean gradient (test code = 0440848727) mmHg TR Peak Catherine (test code = 9983486651) 233.7 cm/s Triscuspid Valve Regurgitation Peak Gradient (test code = 1017234143) mmHg EF(Teich) (test code = 7523423069) 60.40 % LVIDS (test code = 8095946965) 3.10 cm FS (test code = 5683901203) 32 % EF - 2D (test code = 32604788) 60.40 % Radiology Study observation (narrative) (test code = 66341-1) TIFFANY (test code = TIFFANY) ?Left?Ventricle: Left [...] (99.8 kg) 2.23 sq meters 130/95 88 [facility] CenterTROPONIN [id number] 00:28:36* Test Item Value Reference Range Interpretation Comments TROPONIN I (test code = 8876989062) 0.015 ng/mL See_Comment [Automated message] The system which generated this result transmitted reference range: <=0.034. The reference range was not used to interpret this result as normal/abnormal. TIFFANY (test code = TIFFANY) Reference (Normal) Range (defined by the 99th percentile reference [...] patient's use of biotin. Lab Interpretation (test code = 73808-5) [facility] CenterVIT[facility]IN D, [id number] 17:50:34* Test Item Value Reference Range Interpretation Comme nts VIT D 25OH (test code = 36873-5) 19 ng/mL 25-80 L TIFFANY (test code = TIFFANY) Deficiency: <20 ng/mLInsufficiency: 20-24 ng/mLOptimal: 25-80 ng/mL Lab Interpretation (test code = 76377-4) [facility]normal [facility] CenterPROCALCITONIN2022-04-06 16:54:29* Test Item Value Reference Range Interpretation Comme nts Procalcitonin (test code = 8341490424) 0.03 ng/mL <0.07 TIFFANY (test code = TIFFANY) INTERPRETATION OF [...] lung abscess/empyema. For further information please refer to:[email or web address] Lab Interpretation (test code = 14133-5) [facility] CenterVITAMIN B12, [id number] 16:39:51* Test Item Value Reference Range Interpretation Comme nts VIT B12 (test code = 6254386580) 636 pg/mL 240-930 TIFFANY (test code = TIFFANY) Biotin has been reported to cause a positive bias, interpret results relative to patient's use of biotin. Lab Interpretation (test code = 06306-0) Normal [facility] CenterLIPID PANEL (02100)(TOTAL CHOLESTEROL, TRIGLYCERIDES, HDL)2021-11-04 15:21:56* Test Item Value Reference Range Interpretation Comme nts CHOL (test code = 8544285950) 183 mg/dL 120-200 HDL (test code = 4599632989) 40 mg/dL >40 L HDLC RATIO (test code = 2380266104) See_Comment [Automated [employer]] The system which generated this result transmitted reference range: <=5.0. The reference range was not used to interpret this result as normal/abnormal. TRIG (test code = 7238755052) 57 mg/dL 30-170 LDL CHOL (test code = 57389-0) 132 mg/dL See_Comment [Automated [employer]] The system which generated this result transmitted reference range: <=160. The reference range was not used to interpret this result as normal/abnormal. VLDL (test code = 4921549577) 11 mg/dL 5-60 Lab Interpretation (test code = 58039-3) [facility]MAG[facility]20[facility] 15:21:56* Test Item Value Reference Range Interpretation Comme nts MAGNESIUM (test code = 9867155057) 1.6 mg/dL 1.7-2.4 L Lab Interpretation (test cod e = 13294-9) [facility]normal [facility] CenterPHOSPHORUS2022-04-06 15:21:36* Test Item Value Reference Range Interpretation Comme nts PHOSPHORUS (test code = 1067278399) 3.1 mg/dL 2.5-5.0 Lab Interpretation (test cod e = 79356-1) Normal [facility] CenterURIC [id number] 15:21:16* Test Item Value Reference Range Interpretation Comme nts URIC ACID (test code = 2149591567) 4.4 mg/dL 3.6-8.0 Lab Interpretation (test cod e = 25995-5) Normal [facility] CenterTROPONIN [id number] 13:34:13* Test Item Value Reference Range Interpretation Comments TROPONIN I (test code = 8692783829) 0.038 ng/mL See_Comment H [Automated message] The system which generated this result transmitted reference range: <=0.034. The reference range was not used to interpret this result as normal/abnormal. TIFFANY (test code = TIFFANY) Reference (Normal) Range (defined by the 99th percentile reference [...] patient's use of biotin. Lab Interpretation (test code = 58863-3) Abnormal [facility] CenterSEDIMENTATION [id number] 11:19:15* Test Item Value Reference Range Interpretation Comme nts ESR (test code = 5758543471) See_Comment [Automated messa ge] The system which generated this result transmitted reference range: 0 - 10 mm/HR. The reference range was not used to interpret this result as normal/abnormal. Lab Interpretation (test code = 75808-7) Normal [facility] [id number] 10:43:39* Test Item Value Reference Range Interpretation Comments TROPONIN I (test code = 1262737501) 0.037 ng/mL See_Comment H Hemolyzed specimen [Automated message] The system which generated this result transmitted reference range: <=0.034. The reference range was not used to interpret this result as normal/abnormal. TIFFANY (test code = TIFFANY) Reference (Normal) Range (defined by the 99th percentile reference [...] patient's use of biotin. Lab Interpretation (test code = 44002-3) Abnormal [facility] CenterGLYCOSYLATED HEMOGLOBIN (A1C)2021-11-04 09:01:59* Test Item Value Reference Range Interpretation Comme [facility] HGB A1C (test code = 4548-4) 6.0 % 4.0-5.7 H TIFFANY (test code = TIFFANY) Reference RangesNormal: <5.7%Prediabetes: 5.7 - 6.4%Diabetes: > 6.5% Lab Interpretation (test code = 66817-7) Abnormal [facility] [id number] 03:17:54* Test Item Value Reference Range Interpretation Comments TROPONIN I (test code = 7617311481) 0.035 ng/mL See_Comment H [Automated message] The system which generated this result transmitted reference range: <=0.034. The reference range was not used to interpret this result as normal/abnormal. TIFFANY (test code = TIFFANY) Reference (Normal) Range (defined by the 99th percentile reference [...] patient's use of biotin. Lab Interpretation (test code = 93935-9) Abnormal [facility]. METABOLIC PANEL (17943)2021-11-04 03:06:14* Test Item Value Reference Range Interpretation Comme nts NA (test code = 3202147187) 136 mmol/L 135-145 K (test code = 8283784907) 4.4 mmol/L 3.5-5.0 CL (test code = 5925851571) 99 mmol/L 98-108 CO2 TOTAL (test code = 1685000988) 29 mmol/L 23-31 AGAP (test code = 1519642278) 2-16 BUN (test code = 5784233616) 22 mg/dL 7-23 GLUCOSE (test code = 7863288494) 164 mg/dL 70-110 H CREATININE (test code = 1595421020) 0.72 mg/dL 0.60-1.25 TOTAL BILI (test code = 3394407088) 1.8 mg/dL 0.1-1.1 H CALCIUM (test code = 2408742610) 9.3 mg/dL 8.6-10.6 T PROTEIN (test code = 0287346788) 7.5 g/dL 6.3-8.2 ALBUMIN (test code = 7428814476) 3.7 g/dL 3.5-5.0 ALK PHOS (test code = 5094638688) 98 U/L 34-122 ALTv (test code = 1742-6) 35 U/L 5-50 AST(SGOT) (test code = 0156253187) 48 U/L 13-40 H eGFR (test code = 7859092305) mL/min/1.73m2 TIFFANY (test code = TIFFANY) Association [...] imaging tests). Lab Interpretation (test code = 54004-1) [facility]normal [facility] CenterLIPASE, [id number] 03:05:54* Test Item Value Reference Range Interpretation Comme [facility] LIPASE (test code = 4556716047) 253 U/L 0-220 H Lab Interpretation (test cod e = 70681-3) [facility]normal [facility] CenteraPTT2022-04-06 03:03:13* Test Item Value Reference Range Interpretation Comme [facility] APTT Patient (test code = 3173-2) See_Comment [Automated message] The system which generated this result transmitted reference range: 23 - 38 Seconds. The reference range was not used to interpret this result as normal/abnormal. TIFFANY (test code = TIFFANY) The [facility] patient population mean normal value for aPTT is 30 seconds. Lab Interpretation (test code = 36341-0) Normal [facility] CenterPROTHROMBIN TIME / [id number] 03:01:34* Test Item Value Reference Range Interpretation Comme [facility] PROTIME PATIENT (test code = 5964-2) See_Comment H [Automated messa ge] The system which generated this result transmitted reference range: 12.0 - 14.7 Seconds. The reference range was not used to interpret this result as normal/abnormal. INR (test code = 6301-6) Normal INR <1.1; Warfarin Therapeutic range 2.0 to 3.0 or 2.5 to 3.5, depending upon the indications. Lab Interpretation (test code = 61962-8) [facility]normal [facility] CenterCB WITH [id number] 02:55:12* Test Item Value Reference Range Interpretation Comme nts WBC (test code = 6690-2) See_Comment [Automated messa ge] The system which generated this result transmitted reference range: 4.20 - 10.70 10*3/?L. The reference range was not used to interpret this result as normal/abnormal. RBC (test code = 789-8) See_Comment H [Automated messa ge] The system which generated this result transmitted reference range: 4.26 - 5.52 10*6/?L. The reference range was not used to interpret this result as normal/abnormal. HGB (test code = 718-7) 17.3 g/dL 12.2-16.4 H HCT (test code = 4544-3) 51.8 % 38.4-49.3 H MCV (test code = 787-2) 92.7 fL 81.7-95.6 MCH (test code = 785-6) 30.9 pg 26.1-32.7 MCHC (test code = 786-4) 33.4 g/dL 31.2-35.0 RDW-SD (test code = 32071-1) 50.4 fL 38.5-51.6 RDW-CV (test code = 788-0) 14.8 % 12.1-15.4 PLT (test code = 777-3) See_Comment L [Automated messa ge] The system which generated this result transmitted reference range: 150 - 328 10*3/?L. The reference range was not used to interpret this result as normal/abnormal. MPV (test code = 14594-7) 10.3 fL 9.8-13.0 NRBC/100 WBC (test code = 1368095241) See_Comment [Automated me ssage] The system which generated this result transmitted reference range: 0.0 - 10.0 /100 WBCs. The reference range was not used to interpret this result as normal/abnormal. NRBC x10^3 (test code = 0427734853) <0.01 See_Comment [Automated messa ge] The system which generated this result transmitted reference range: 10*3/?L. The reference range was not used to interpret this result as normal/abnormal. GRAN MAT (NEUT) % (test code = 770-8) 72.3 % IMM GRAN % (test code = 5501207787) 1.70 % LYMPH % (test code = 736-9) 16.5 % MONO % (test code = 5905-5) 8.2 % EOS % (test code = 713-8) 1.0 % BASO % (test code = 706-2) 0.3 % GRAN MAT x10^3(ANC) (test code = 0257185740) 7.35 10*3/uL 1.99-6.95 H IMM GRAN x10^3 (test code = 0990314558) 0.17 10*3/uL 0.00-0.06 H LYMPH x10^3 (test code = 731-0) 1.67 10*3/uL 1.09-3.23 MONO x10^3 (test code = 742-7) 0.83 10*3/uL 0.36-1.02 EOS x10^3 (test code = 711-2) 0.10 10*3/uL 0.06-0.53 BASO x10^3 (test code = 704-7) 0.03 10*3/uL 0.01-0.09 Lab Interpretation (test code = 00237-1) [facility] CenterPS[facility], TOTAL [ADDED]2017-09-14 00:00:00* Test Item Value Reference Range Interpretation Comme nts PSA, TOTAL (test code = 2606) 0.82 NG/ML PSA, TOTAL [ADDED]2017-09-14 00:00:00* Test Item Value Reference Range Interpretation Comme nts PSA, TOTAL (test code = 2606) 0.82 NG/ML PSA, TOTAL [ADDED]2017-09-14 00:00:00* Test Item Value Reference Range Interpretation Comme nts PSA, TOTAL (test code = 2606) 0.82 NG/ML NOTE: [ADDED]2017-09-14 00:00:00* Test Item Value Reference Range Interpretation Comme nts NOTE: (test code = 998) (NOTE) PSA, TOTAL [ADDED]2017-09-14 00:00:00* Test Item Value Reference Range Interpretation Comme nts PSA, TOTAL (test code = 2606) 0.82 NG/ML PSA, TOTAL [ADDED]2017-09-14 00:00:00* Test Item Value Reference Range Interpretation Comme nts PSA, TOTAL (test code = 2606) 0.82 NG/ML PSA, TOTAL [ADDED]2017-09-14 00:00:00* Test Item Value Reference Range Interpretation Comme nts PSA, TOTAL (test code = 2606) 0.82 NG/ML NOTE: [ADDED]2017-09-14 00:00:00* Test Item Value Reference Range Interpretation Comme nts NOTE: (test code = 998) (NOTE) PSA, TOTAL [ADDED]2017-09-14 00:00:00* Test Item Value Reference Range Interpretation Comme nts PSA, TOTAL (test code = 2606) 0.82 NG/ML PSA, TOTAL [ADDED]2017-09-14 00:00:00* Test Item Value Reference Range Interpretation Comme nts PSA, TOTAL (test code = 2606) 0.82 NG/ML NOTE: [ADDED]2017-09-14 00:00:00* Test Item Value Reference Range Interpretation Comme nts NOTE: (test code = 998) (NOTE) HEMOGLOBIN [id number] 00:00:00* Test Item Value Reference Range Interpretation Comme nts HEMOGLOBIN A1c (test code = 32716) 5.4 % HEMOGLOBIN [id number] 00:00:00* Test Item Value Reference Range Interpretation Comme nts HEMOGLOBIN A1c (test code = 58464) 5.4 % HEMOGLOBIN [id number] 00:00:00* Test Item Value Reference Range Interpretation Comme nts HEMOGLOBIN A1c (test code = 39953) 5.4 % CBC W/AUTO [id number] 00:00:00* Test Item Value Reference Range Interpretation Comme nts WBC (test code = 1001) 5.4 K/UL [...] code = 1015) 135 K/UL CBC W/AUTO [id number] 00:00:00* Test Item Value Reference Range Interpretation Comme nts WBC (test code = 1001) 5.4 K/UL [...] code = 1015) 135 K/UL CBC W/AUTO [id number] 00:00:00* Test Item Value Reference Range Interpretation Comme nts WBC (test code = 1001) 5.4 K/UL [...] code = 1015) 135 K/UL COMPREHENSIVE METABOLIC [id number] 00:00:00* Test Item Value Reference Range Interpretation Comme nts GLUCOSE (test code = 2217) 120 MG/DL BUN (test code = 2208) 22 MG/DL CREATININE (test code = 2214) 0.81 MG/DL eGFR AMER. (test cod e = 28993) 113 ML/MIN/1.73 eGFR NON- AMER. (test code = 47091) 97 ML/MIN/1.73 CALC BUN/CREAT (test code = 2235) 27 RATIO SODIUM (test code = 2231) 138 MEQ/L POTASSIUM (test code = 2228) 4.5 MEQ/L CHLORIDE (test code = 2215) 99 MEQ/L CARBON DIOXIDE (test code = 2206) 26 MEQ/L CALCIUM (test code = 2209) 9.5 MG/DL PROTEIN, TOTAL (test code = 2229) 8.2 G/DL ALBUMIN (test code = 2201) 4.2 G/DL CALC GLOBULIN (test code = 2240) 4.0 G/DL CALC A/G RATIO (test code = 2234) 1.1 RATIO BILIRUBIN, TOTAL (test code = 2207) 0.5 MG/DL ALKALINE PHOSPHATASE (test code = 2204) 74 U/L AST (test code = 2218) 53 U/L ALT (test code = 2219) 47 U/L COMPREHENSIVE METABOLIC [id number] 00:00:00* Test Item Value Reference Range Interpretation Comme nts GLUCOSE (test code = 2217) 120 MG/DL BUN (test code = 2208) 22 MG/DL CREATININE (test code = 2214) 0.81 MG/DL eGFR AMER. (test cod e = 51593) 113 ML/MIN/1.73 eGFR NON- AMER. (test code = 87367) 97 ML/MIN/1.73 CALC BUN/CREAT (test code = 2235) 27 RATIO SODIUM (test code = 2231) 138 MEQ/L POTASSIUM (test code = 2228) 4.5 MEQ/L CHLORIDE (test code = 2215) 99 MEQ/L CARBON DIOXIDE (test code = 2206) 26 MEQ/L CALCIUM (test code = 2209) 9.5 MG/DL PROTEIN, TOTAL (test code = 2229) 8.2 G/DL ALBUMIN (test code = 2201) 4.2 G/DL CALC GLOBULIN (test code = 2240) 4.0 G/DL CALC A/G RATIO (test code = 2234) 1.1 RATIO BILIRUBIN, TOTAL (test code = 2207) 0.5 MG/DL ALKALINE PHOSPHATASE (test code = 2204) 74 U/L AST (test code = 2218) 53 U/L ALT (test code = 2219) 47 U/L LIPID [id number] 00:00:00* Test Item Value Reference Range Interpretation Comme nts CHOLESTEROL (test code = 2210) 176 MG/DL TRIGLYCERIDES (test code = 2232) 55 MG/DL HDL CHOLESTEROL (test code = 2220) 73 MG/DL CALC LDL CHOL (test code = 2237) 92 MG/DL RISK RATIO LDL/HDL (test cod e = 2238) 1.26 RATIO LIPID [id number] 00:00:00* Test Item Value Reference Range Interpretation Comme nts CHOLESTEROL (test code = 2210) 176 MG/DL TRIGLYCERIDES (test code = 2232) 55 MG/DL HDL CHOLESTEROL (test code = 2220) 73 MG/DL CALC LDL CHOL (test code = 2237) 92 MG/DL RISK RATIO LDL/HDL (test cod e = 2238) 1.26 RATIO HEMOGLOBIN [id number] 00:00:00* Test Item Value Reference Range Interpretation Comme nts HEMOGLOBIN A1c (test code = 25681) 5.4 % HEMOGLOBIN [id number] 00:00:00* Test Item Value Reference Range Interpretation Comme nts HEMOGLOBIN A1c (test code = 54833) 5.4 % HEMOGLOBIN [id number] 00:00:00* Test Item Value Reference Range Interpretation Comme nts HEMOGLOBIN A1c (test code = 86249) 5.4 % CBC W/AUTO [id number] 00:00:00* Test Item Value Reference Range Interpretation Comme nts WBC (test code = 1001) 5.4 K/UL [...] code = 1015) 135 K/UL CBC W/AUTO [id number] 00:00:00* Test Item Value Reference Range Interpretation Comme nts WBC (test code = 1001) 5.4 K/UL [...] code = 1015) 135 K/UL CBC W/AUTO [id number] 00:00:00* Test Item Value Reference Range Interpretation Comme nts WBC (test code = 1001) 5.4 K/UL [...] code = 1015) 135 K/UL COMPREHENSIVE METABOLIC [id number] 00:00:00* Test Item Value Reference Range Interpretation Comme nts GLUCOSE (test code = 2217) 120 MG/DL BUN (test code = 2208) 22 MG/DL CREATININE (test code = 2214) 0.81 MG/DL eGFR AMER. (test cod e = 09148) 113 ML/MIN/1.73 eGFR NON- AMER. (test code = 01420) 97 ML/MIN/1.73 CALC BUN/CREAT (test code = 2235) 27 RATIO SODIUM (test code = 2231) 138 MEQ/L POTASSIUM (test code = 2228) 4.5 MEQ/L CHLORIDE (test code = 2215) 99 MEQ/L CARBON DIOXIDE (test code = 2206) 26 MEQ/L CALCIUM (test code = 2209) 9.5 MG/DL PROTEIN, TOTAL (test code = 2229) 8.2 G/DL ALBUMIN (test code = 2201) 4.2 G/DL CALC GLOBULIN (test code = 2240) 4.0 G/DL CALC A/G RATIO (test code = 2234) 1.1 RATIO BILIRUBIN, TOTAL (test code = 2207) 0.5 MG/DL ALKALINE PHOSPHATASE (test code = 2204) 74 U/L AST (test code = 2218) 53 U/L ALT (test code = 2219) 47 U/L COMPREHENSIVE METABOLIC [id number] 00:00:00* Test Item Value Reference Range Interpretation Comme nts GLUCOSE (test code = 2217) 120 MG/DL BUN (test code = 2208) 22 MG/DL CREATININE (test code = 2214) 0.81 MG/DL eGFR AMER. (test cod e = 17701) 113 ML/MIN/1.73 eGFR NON- AMER. (test code = 79853) 97 ML/MIN/1.73 CALC BUN/CREAT (test code = 2235) 27 RATIO SODIUM (test code = 2231) 138 MEQ/L POTASSIUM (test code = 2228) 4.5 MEQ/L CHLORIDE (test code = 2215) 99 MEQ/L CARBON DIOXIDE (test code = 2206) 26 MEQ/L CALCIUM (test code = 2209) 9.5 MG/DL PROTEIN, TOTAL (test code = 2229) 8.2 G/DL ALBUMIN (test code = 2201) 4.2 G/DL CALC GLOBULIN (test code = 2240) 4.0 G/DL CALC A/G RATIO (test code = 2234) 1.1 RATIO BILIRUBIN, TOTAL (test code = 2207) 0.5 MG/DL ALKALINE PHOSPHATASE (test code = 2204) 74 U/L AST (test code = 2218) 53 U/L ALT (test code = 2219) 47 U/L LIPID [id number] 00:00:00* Test Item Value Reference Range Interpretation Comme nts CHOLESTEROL (test code = 2210) 176 MG/DL TRIGLYCERIDES (test code = 2232) 55 MG/DL HDL CHOLESTEROL (test code = 2220) 73 MG/DL CALC LDL CHOL (test code = 2237) 92 MG/DL RISK RATIO LDL/HDL (test cod e = 2238) 1.26 RATIO LIPID [id number] 00:00:00* Test Item Value Reference Range Interpretation Comme nts CHOLESTEROL (test code = 2210) 176 MG/DL TRIGLYCERIDES (test code = 2232) 55 MG/DL HDL CHOLESTEROL (test code = 2220) 73 MG/DL CALC LDL CHOL (test code = 2237) 92 MG/DL RISK RATIO LDL/HDL (test cod e = 2238) 1.26 RATIO HEMOGLOBIN [id number] 00:00:00* Test Item Value Reference Range Interpretation Comme nts HEMOGLOBIN A1c (test code = 48883) 5.4 % HEMOGLOBIN [id number] 00:00:00* Test Item Value Reference Range Interpretation Comme nts HEMOGLOBIN A1c (test code = 74876) 5.4 % CBC W/AUTO [id number] 00:00:00* Test Item Value Reference Range Interpretation Comme nts WBC (test code = 1001) 5.4 K/UL [...] code = 1015) 135 K/UL CBC W/AUTO [id number] 00:00:00* Test Item Value Reference Range Interpretation Comme nts WBC (test code = 1001) 5.4 K/UL [...] code = 1015) 135 K/UL COMPREHENSIVE METABOLIC [id number] 00:00:00* Test Item Value Reference Range Interpretation Comme nts GLUCOSE (test code = 2217) 120 MG/DL BUN (test code = 2208) 22 MG/DL CREATININE (test code = 2214) 0.81 MG/DL eGFR AMER. (test cod e = 93188) 113 ML/MIN/1.73 eGFR NON- AMER. (test code = 29045) 97 ML/MIN/1.73 CALC BUN/CREAT (test code = 2235) 27 RATIO SODIUM (test code = 2231) 138 MEQ/L POTASSIUM (test code = 2228) 4.5 MEQ/L CHLORIDE (test code = 2215) 99 MEQ/L CARBON DIOXIDE (test code = 2206) 26 MEQ/L CALCIUM (test code = 2209) 9.5 MG/DL PROTEIN, TOTAL (test code = 2229) 8.2 G/DL ALBUMIN (test code = 2201) 4.2 G/DL CALC GLOBULIN (test code = 2240) 4.0 G/DL CALC A/G RATIO (test code = 2234) 1.1 RATIO BILIRUBIN, TOTAL (test code = 2207) 0.5 MG/DL ALKALINE PHOSPHATASE (test code = 2204) 74 U/L AST (test code = 2218) 53 U/L ALT (test code = 2219) 47 U/L LIPID [id number] 00:00:00* Test Item Value Reference Range Interpretation Comme nts CHOLESTEROL (test code = 2210) 176 MG/DL TRIGLYCERIDES (test code = 2232) 55 MG/DL HDL CHOLESTEROL (test code = 2220) 73 MG/DL CALC LDL CHOL (test code = 2237) 92 MG/DL RISK RATIO LDL/HDL (test cod e = 2238) 1.26 RATIO URIC [id number] 00:00:00* Test Item Value Reference Range Interpretation Comme nts URIC ACID (test code = 2233) 4.6 MG/DL URIC [id number] 00:00:00* Test Item Value Reference Range Interpretation Comme nts URIC ACID (test code = 2233) 4.6 MG/DL URIC [id number] 00:00:00* Test Item Value Reference Range Interpretation Comme nts URIC ACID (test code = 2233) 4.6 MG/DL URIC [id number] 00:00:00* Test Item Value Reference Range Interpretation Comme nts URIC ACID (test code = 2233) 4.6 MG/DL URIC [id number] 00:00:00* Test Item Value Reference Range Interpretation Comme nts URIC ACID (test code = 2233) 4.6 MG/DL History and Physical Notes Date/Time Note Provider Source 2023-04-14 08:00:00 OIBb8AbMmyi7s+QLPapFCvKBaRaAJDiG8+ //cdbnwD+hYJxE9hH7dZv4yxP4Q71d2912 -09-14T08:00:00 INTERVENTIONAL RADIOLOGY HISTORY AND PHYSICALAttending: Ahmad [facility] Joseph Sellers is a 63 year old male here for Y90 mapping.Medications (Current)Current Outpatient Medications on File Prior to Encounter Medication Sig Dispense Refill TRELEGY ELLIPTA 100-62.5-25 mcg DsDv INHALE 1 PUFF BY MOUTH EVERY DAY spironolactone 25 mg tablet Take 1 tablet by mouth in the morning. 30 tablet 5 oxyCODONE-acetaminophen 7.5-325 mg per tablet Take 1 tablet by mouth every 8 (eight) hours as needed. aspirin 81 mg chewable tablet Take 1 tablet by mouth in the morning. albuterol 2.5 mg /3 mL (0.083 %) nebulizer solution Inhale 3 mL every 4 (four) hours as needed for Wheezing or Shortness of Breath. 2.5 mL 25 albuterol 90 mcg/actuation inhaler Inhale 2 Puffs every 6 (six) hours as needed for Wheezing or Shortness of Breath. 8.5 g 3 No current facility-administered medications on file prior to encounter. Past Medical History:Past Medical History: Diagnosis Date COPD (chronic obstructive pulmonary disease) Former smoker Neuropathy Past Surgical History: Past Surgical History: Procedure Laterality Date ESOPHAGOGASTRODUODENOSCOPY N/A 07/18/2019 Surgeon: Christopher Mariscal MD; Location: Endoscopy ([facility]) OR Location IR EMBOLIZATION TUMORS ORGAN ISCHEMIA OR INFARCTION Right 10/08/2022 right lobe Y90 radioembolization Social History: Social History Tobacco Use Smoking status: Former Types: Cigarettes Quit date: 05/29/2017 Years since quittin.8 Passive exposure: Past Smokeless tobacco: Never Substance Use Topics Alcohol use: Not Currently Drug use: Not Currently ROS (BOLDED IF POSITIVE - otherwise negative)Constitutional: Nausea, Vomiting, Fevers, ChillsEyes: NegativeEars, nose, mouth, and throat: NegativeEndocrine: NegativeHematologic: NegativeCard: Chest pain, PalpitationsPulm: Cough, Shortness of breathGI: Diarrhea, Constipation, : NegativeInteg: Masses, Rashes, LesionsMsk: Weakness, PainNeuro: Headache, Vision changes, Dizziness, WeaknessPEVitals: Vitals: 04/14/23 0920 04/14/23 0930 04/14/23 0935 04/14/23 0940 BP: 118/86 117/75 (!) 155/79 106/73 BP Location: Patient Position: Pulse: 86 89 92 97 Resp: 18 14 15 16 Temp: TempSrc: SpO2: 95% 96% 95% 94% Exam:Appearance: NADOropharynx: moist mucus membranesCardiovascular: RRRRespiratory: nonlaboredAbdomen: soft, non-tender, non-distendedNeurologic: normocephalicPsychiatric: appropriate affectSkin: normal turgorLabs:No results for input(s): "WBC", "HGB", "HCT", "PLT" in the last 72 hours.]No results for input(s): "NA", "K", "CL", "TCO2", "BUN", "CREAT", "GLU", "PHOS", "MG", "CA", "CAIONIZ" in the last 72 hours.]No results for input(s): "ACPH", "ACPCO2", "ACPO2", "ACHCO3", "ACNA", "ACK", "ACCAIONZ", "ACBE" in the last 72 hours.No results for input(s): "PTPAT", "PTINR", "APTTMNNM", "APTTPAT" in the last 72 hours.No results for input(s): "UPROTEIN", "UGLUCOSE", "UKETONES", "UBILI", "UBLOOD", "UUROBILIN", "ULEUKEST", "UNITRITE", "USPGRAV" in the last 72 hours.@1LFT@No results for input(s): "PHENYTOIN", "PHENYFREE" in the last 72 hours. Imaging: IR EMBOLIZATION TUMORS ORGAN ISCHEMIA OR INFARCTIONResult Date: 04/08/2023Technically successful Y-90 radio-embolization in right and middle hepatic arteries common trunk supplying the multifocal right hepatic lobe HCC. Results of the nuclear medicine liver-lung scan are pending. PLAN: The patient will follow with interventional radiology clinic in approximately 2-4 weeks. Preliminary Report Dictated by Resident: Tavia Mariscal Attestation Signer name: Christine Wayne I attest that I was present for the entire procedure. I reviewed the stored images and agree with the report as written. I, Christine Black MD., have reviewed this study and agree with the above report.CT ABDOMEN PELVIS W WO CONTRASTResult Date: 04/07/2023Impression: 1. The large exophytic right hepatic lobe lesion, reportedly the treated lesion, is unchanged in size and morphology from the MRI of January 19, 2023. There is persistent hyperenhancement, although with central necrosis again noted. LR-TR Viable 2. There has been interval enlargement of masses within segments 2/3 and 4. These are LR-5 lesions. 3. The remainder of the previously described observations are stable or decreased in size. 4. Additional stable findings as described. HS:Y RL: 460 End of Report Assessment: Joseph Sellers is a 63 year old male here for Y90 mapping.Pre-Procedure Sedation EvaluationNPO StatusSolids: >6 hoursClear liquids: >2 hoursHistoryHistory of anesthesia/sedation complications: NoHistory of difficult airway: NoHistory of neck problems, craniofacial abnormalities, head/neck surgery: NoIncreased risk for airway obstruction, sleep apnea, morbid obesity: NoFocused Physical ExamHeart: documented in H&P NormalLung: documented in H&P NormalAirwayMallampati: II (full visibility of soft palate and part of uvula)Mouth opening: NormalRange of motion neck: NormalDentition: NormalAssessment: ASA 3Plan: Moderate sedationThe risks, benefits, and treatment options of sedation were discussed with the patient/guardian and they desire to proceed. The consent form was completed and signed. Bran Sorensen MDInterventional Radiology ssociated attestation - Juan Guy MD - 04/14/2023 3:03 PM CDT I, Dr. Juan Guy, have reviewed and agree with the resident's note.28305-9Lxotjut and physical [id number], Farhan1.2.840.088129.1.13.104.2.7. 2.600466HjqelMnrczvBC0272-72-17U63 :03:18History and physical noteTXT1.2.840.550547.1.13.104.2.7 .2.130640|[id number] for patient calp20685-0Tliaqqm and physical noteLNRAD-VASCULAR & INTERVENTIONAL RADIOLOGYRAD-VASCULAR & INTERVENTIONAL RADIOLOGY[address] Vx[id number] 21UCZGIOZVNWJXXNDREQMMCW4537-66-88 T15:03:181.2.840.360098.1.72.3.15| 1.2.840.375135.1.13.104.2.7.2.7278 [id number] RAD-VASCULAR & INTERVENTIONAL RADIOLOGY [facility] 2023-04-06 23:26:13 K1tuA9obDXb9LENJH1ibpPsGzEx/QTUdqm 0s3CUnMNYNEGfctQzYXl8GV4WHDEJE0119 -09-06T23:26:13 JEREMIAS Admit [facility]: [facility]CHIEF COMPLAINT: HCC s/p right lobar radioembolization HISTORY OF PRESENT ILLNESSJoseph Sellers is a 63 year old male with a PMHx of COPD (on 2L O2 at night), Liver cirrhosis 2/2 HCV treated w/ Epclusa (2016), EV & GOV-1 varices seen on EGD 2018, multiple multifocal LR5 HCC lesions s/p right lobe Y90 radioembolization (10/08/22) who is admitted for overnight monitoring after undergoing repeat Y-90 right lobar radioembolization today with IR. Pt was initially diagnosed w/ HCC 01/2022 via MRI Abd contrast which showed 4 lesions concerning for HCC. He first became aware of the lesions in 12/2021 after they were noted on CT Angiogram of aorta (dissection protocol) imaging from [facility]. He was determined not to be a surgical candidate for resection or transplant due to COPD and more recently, due to extent of liver lesions. He underwent the 1st radioembolization on 10/08 after surveillance MR (08/25/2022) revealed 9 LIRADS 5 liver lesions w/ no distant mets identified. He tolerated the procedure well and surveillance MR (01/19/23) reported decreased size of the vast majority of previously seen lesions. Pt states he was in his usual state of health and came to the hospital today for a pre-planned embolization by IR, mapping was completed last Tuesday. There were no complications and the pt tolerated the procedure well. Pt denies current abdominal pain but notes muscle pain in back which he attributes to laying flat for long periods of time last Tuesday for mapping and today pending the procedure. Pt states he has been able to eat since surgery and reports a good appetite. Otherwise, denies N/V, F/C. Pt states he will return in the next week for scheduled L Lobar radioembolization. He notes his oncologist has also recently discussed beginning chemotherapy in the near future. Prior to procedure, he notes history of ascites managed by diuretics. He has never undergone paracentesis. He denies recent abdominal pain/distension, N/V, F/C/ CP. He endorses estimated 60lb wt loss since initially being diagnosed with HCC last year. He reports that he is physically active and tries to exercise at least 3x weekly.Past medical history: has a past medical history of COPD (chronic obstructive pulmonary disease), Former smoker, and Neuropathy.Past surgical history: has a past surgical history that includes esophagogastroduodenoscopy (N/A, 07/18/2019) and ir embolization tumors organ ischemia or infarction (Right, 10/08/2022).Social history: reports that he quit smoking about 5 years ago. His smoking use included cigarettes. He has never used smokeless tobacco. He reports that he does not currently use alcohol. He reports that he does not currently use drugs.Pt lives in [facility] and is independent in ADL but has a cloak room attendant which helps him with house chores and cooking. Notes good social support, is active in community AA and NA programs. History of smoking 3pc/d for 30yrs then 1pc/d for 15yrs and reports occasionally smoking a cigarette when stressed. Denies history of alcohol use or drug use. Family history: non-contributory.Allergies: Allergies Allergen Reactions Fish [Seafood/Fish] Rash MEDICATIONSNo current facility-administered medications on file prior to encounter. Current Outpatient Medications on File Prior to Encounter Medication Sig Dispense Refill spironolactone 25 mg tablet Take 1 tablet by mouth in the morning. 30 tablet 5 oxyCODONE-acetaminophen 7.5-325 mg per tablet Take 1 tablet by mouth every 8 (eight) hours as needed. aspirin 81 mg chewable tablet Take 1 tablet by mouth in the morning. albuterol 2.5 mg /3 mL (0.083 %) nebulizer solution Inhale 3 mL every 4 (four) hours as needed for Wheezing or Shortness of Breath. 2.5 mL 25 albuterol 90 mcg/actuation inhaler Inhale 2 Puffs every 6 (six) hours as needed for Wheezing or Shortness of Breath. 8.5 g 3 ROS: As per HPI unless otherwise stated.PHYSICAL EXAMINATIONTemp: [36.2 ?C (97.2 ?F)-36.9 ?C (98.5 ?F)] Heart Rate (monitor): [75-85] Pulse: [83-90] Resp: [15-20] BP: (133-153)/(83-118) Arterial Line BP: (-9-93)/(-24-88) MAP (mmHg): [109-128] General: AOx4, no acute distress Cardio: RRR, no mrg, Resp: diffuse wheezes Abd: soft, non tender, bowel sounds present, bandage in place over incision site C/D/I, no active bleedingExt: No LE edema, no calf tenderness Radiology01/19/2023 MR Abdomen: Hepatobiliary: Small size with cirrhotic appearance. The treated hepatic lesion now measures 5.5 x 6.4 x 6.3 cm (AP x TV x CC), grossly unchanged in size from prior with residual contrast enhancement but increased central nonenhancing necrosis. The remainder of the previously seen right hepatic lobe lesions are all decreased in size (12:18, 15, 12). A new 2.0 cm arterially enhancing focus with delayed washout in segment III is seen (12:15). Other New 1.1 and 0.9 cm arterially enhancing foci with washout are seen in segment VIII (12:16, 19). An additional subcentimeter arterial enhancing foci without washout is seen in segment IVB (12:27). No biliary ductal dilatation. Gall bladder appears normal. IMPRESSION 1. Decreased size of the vast majority of previously seen lesions. Overall this is consistent with mixed treatment response. 2. New 2.0 cm segment III and segment VIII LR-5 lesions. Segment IVB arterial enhancement lesion without washout (LR-3). 3. The large exophytic right-sided hepatic lesion is grossly unchanged in size with increased central necrosis and residual enhancement showing treatment response, however this lesion has imaging characteristics consistent with LR-TR viable designation. 4. Hepatic cirrhosis with splenomegaly and gastric and splenic varices consistent with portal hypertension. 08/25/2022 MR Abdomen: 1. Multiple (at least 9) LIRADS 5 liver masses measuring up to 5.5 cm involving right hepatic lobe and segment 4. 2. Cirrhotic liver with sequela of portal hypertension with portosystemic shunt and splenomegaly. 3. No filling defect to suggest portal vein thrombosis and no prior imaging for comparison. However attenuated left lateral segmental branch and posterior right hepatic branch can represent chronic thrombosis.PROCEDURES: Y-90 radioembolization 04/06/2023Findings: -Multiple bilateral tumor blushes and perfusion, with new and left hepatic lesions.-Recanalized previously embolized GDA. -Gastric enhancement and arterial supply from the left hepatic artery via accessory left gastric artery which was gelfoam and metallic coils. ASSESSMENT/PLANDennis Aaron Sellers is a 63 year old male with PMH as listed above, admitted to the hospital with:Multifocal HCC s/p 2x right lobar radioembolization (10/08, 04/06)Cirrhosis 2/2 HCV (tx w/ Epculsa, 2017) (MELD-Na: 11)Pt w/ history of cirrhosis 2/2 HCV and multifocal HCC presenting for pre-planned procedure of repeat right lobar radioembolization by IR, prior embolization was done on 10/08. Per IR procedure note, no complications, EBL: <20mL. Patient is feeling well and hemodynamically stable. Anticipate discharge tomorrow. - Ad[facility] to [facility]- Basic admission labs - F/u CT Abd Pelvis read - c/w ASA 81 mg daily- c/w Spironolactone 25 mg dailyCOPDChronic. Pt is on home oxygen (2L) which he uses only at night. - c/w AlbuterolChronic low back pain- c/w home Percocet 7.5-325 q8hprn (will use dose of 5-325 instead as the 7.5 dose is non-formulary)Prophylaxis: DVT- Anant Smith, MS409/02/20I personally examined the patient on 04/07/2023 and have verified the medical student documentation and/or findings, including the history, physical exam, and medical decision making. Additionally, I have personally performed or re-performed the physical exam and medical decision making activities of this patient's evaluation and management service. Parth Bills, [facility] | [place] Team ssociated attestation - Karen Keane MD - 04/07/2023 1:51 AM CDT After discussion with Dr. Jefe Hall, I examined this patient. I actively participated in the decision-making process and I agree with resident's note as written.Karen Keane M.D.Internal Medicine Chief Resident|Clinical Instructor 22850-6Ytwflig and physical [id number], Sarah1.2.840.771882.1.13.104.2.7.2 .956259EygrhfjTxtekKC1030-19-49A02 :51:08History and physical noteTXT1.2.840.241149.1.13.104.2.7 .2.976852|[id number] for patient pvbc25806-5Bxhfpxe and physical noteLNUT[address] Beck StreetTXTX[address]75 87FLHJKFYQRQQGEOZHMKEBPF8421-65-27 T01:51:081.2.840.972218.1.72.3.15| 1.2.840.013042.1.13.104.2.7.2.7278 [id number] [facility] [[email or web address]] Health Procedure Notes Date/Time Note Provider Source 2023-04-14 08:00:00 b0IG6ZS11Y9hUr5HPfQ+ ++YCOc3+n fVV+dk7cNOAfeyk8q3Ala6/hOdCwS kI3afv5710-33-72C08:00:00Form atting of this note might be different from the original..VASCULAR AND INTERVENTIONAL RADIOLOGY PROCEDURE NOTE Pre-procedure diagnosis: 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 Post-procedure diagnosis: Same. Procedure: Left INDEXER US guided access sheath placement ( CPT 33552, 50395)Proper hepatic artery catheterization and arteriogram (CPT 77739,83414)Left hepatic artery catheterization and arteriogram (CPT 30838,37077)MAA injection at the level of left hepatic arteries shared trunkLeft INDEXER arteriotomy hemostasis using manual compression. Anesthesia: IV fentanyl and IV versed.Local 1% lidocaine. Findings: Successful infusion of 3 mCi of Tech MAA at the level of left hepatic artery. Successful achievement of hemostasis at the left INDEXER arteriotomy using manual compression. Complications: None Condition: Stable EBL: < 10 mL. Post-Procedure Sedation AddendumImmediately prior to start of sedation, the patient was evaluated and there was no change from the pre-procedure evaluation. I was present and directed medical care.The patient underwent moderate sedation for the procedure. The medications administered were recorded in the MAR; oxygenation, ventilation and circulation were monitored continuously and were recorded in the EMR. I evaluated the patient after the procedure.The patient was evaluated immediately as recovering from sedation. Complications: None. Full dictated note to follow in PACS. ssociated attestation - Juan Guy MD - 04/14/2023 5:20 PM CDT I, Dr. Juan Guy, have reviewed and agree with the resident's note.27983-4Xujmaitfc uuvtUT5878685Elzrf, Farhan1.2.840.270572.1.13.104 .2.7.2.616076KrdsrOslffxOH447 10-07-13T17:20:48Procedure noteTXT1.2.840.029092.1.13.10 4.2.7.2.940297|[id number] ailable for patient irmy26345-3Mkcfzgukk noteLNRAD-VASCULAR & INTERVENTIONAL RADIOLOGYRAD-VASCULAR & INTERVENTIONAL RADIOLOGY[address]TXTX[address] 3521851YSVNXRGOOPQFEJVYHTFISZ 6335-97-49X57:20:481.2.840.11 4350.1.72.3.15|1.2.840.771457 .1.13.104.2.7.2.727879_[id number] 6585 RAD-VASCULAR & INTERVENTIONAL RADIOLOGY [facility] Notes Date/Time Note Provider Source 2023-07-21 10:25:01 wm8XcYg0mRyy+uza99QA bvDh9o5voN xgttukMvhcg4AFuTQl0+p8+fzebuTs jTmC9302-02-48H86:25:01Formatt ing of this note might be different from the original.I called patient to relay answer to his question about carvedilol. Patient voiced understanding of the reason he is taking the medication. 75366-6Gkgbxfgkt encounter PtdySW7067-12-89H57:26:27Telep beth encounter NoteTXT1.2.840.254787.1.13.104 .2.7.2.390289|[id number] lable for patient xpwc07161-0NohxVLYYZNCVIAMYoid atted C-CDA narrative [id number] L Allen RN[address]TXTX[address] 392654YBNKGYNZOIZSDZRATGVNUL30 23-07-21T10:26:271.2.840.21508 0.1.72.3.15|1.2.840.913584.1.1 3.104.2.7.2.727879_[id number] Wily Soria RN [facility] 2023-07-21 09:02:54 5owmiYHOFxIY4LMBaBrk KfWPzz3pB/ sA++KeG+AHpw/IizlAD7lDaCRS+wolof DYX81336-77-74O05:02:54Formatt ing of this note might be different from the original.Yes, carvedilol is typically a cardiac medication. However, nonselective beta blockers, such as carvedilol, are the main medications for prophylaxis for patients with cirrhosis and esophageal varices who do not have a contraindication or intolerance to beta blockers. The medication reduces portal venous inflow through nonselective beta blockade, the anti-alpha 1 adrenergic activity lowers hepatic vascular tone and hepatic resistance. This results in greater reduction in portal pressure. We started him on the lowest dose in order to hopefully preventing esophageal variceal bleeding/complications.Ana Li PA-C 07/21/2023 9:03 AMDivision of Gastroenterology and HepatologyEn[facility] 28154-2Ayexuprud encounter TihgPB8780-36-44V22:04:44Telep beth encounter NoteTXT1.2.840.083994.1.13.104 .2.7.2.599118|[id number] lable for patient zcfs07984-7EsnbMPOETSSHDLOFpiq atted C-CDA narrative text[address] WcaqWupvhrlegGqwkubytcILVQ8668 748601PFMAJEWKJMLJABGMTCGPVB02 23-07-21T09:04:441.2.840.82042 0.1.72.3.15|1.2.840.526971.1.1 3.104.2.7.2.727879_[id number] [facility] 2023-07-20 14:34:08 ls3LIr7vLeRphenoky6J pymF+yzx/m xd+griZPOvdZfxpHT7OjGoCCIOaZwT VqGq5064-64-14Z51:34:08Formatt ing of this note might be different from the original.Joseph Sellers is a 63 year old male pt is calling because he is concerned the the medication id for heat issues not GI.Please call pt to confirm the medication carvediloL 3.125 mg tabletPlease advise 10367-7Hyspxpmzg encounter RigvVQ5483-38-55Y33:36:12Telep beth encounter NoteTXT1.2.840.781285.1.13.104 .2.7.2.895859|[id number] lable for patient zvmn05622-8SxrsCBXEMALWGYMQczp atted C-CDA narrative jctk466049578Vxrtbkp Annalisa Oksana[address] ChyqSrrmthqehGbsgwurfmYYMB5381 077410CIIZOFWMFPTZSKZIERQRFP92 23-07-20T14:36:121.2.840.69491 0.1.72.3.15|1.2.840.600109.1.1 3.104.2.7.2.727879_[id number] Annabelle Gandhi [facility] 2023-04-07 15:20:00 IUsxy7/hNlEiA3HWSA7w qNMbElEkX1 aD8f3xjFaXl61tZ+KL/KUcKK8I+UQC xpad7131-90-06I35:20:00Formatt ing of this note might be different from the original.Patient given discharge instructions and verbalized understanding. IV removed with tip intact. Patient accompanied to private auto by family member. Patient in stable condition. 57474-6Lpmma NgbjEY0132-31-20D55:39:32Nurse NoteTXT1.2.840.024103.1.13.104 .2.7.2.786046|[id number] lable for patient kmmg11835-6IkqlUI501056892Nitt gretta Herrmann RN[address] XdijWpgtdgwdjQedskawixOQLE3483 220943UMZFXOJZGFZGIUVIZWFFEX36 23-04-07T16:39:321.2.840.35498 0.1.72.3.15|1.2.840.580441.1.1 3.104.2.7.2.727879_[id number] Wei Herrmann RN [facility] 2023-04-07 14:52:24 Os2gkbxZcAvYjyVtlJi9 rTR9ii800M A979plnBEQLpaeTLGeJtRGbH2F0MaT 4FzL6271-47-10C32:52:24Formatt ing of this note might be different from the original.Problem: PainGoal: Control of pain at or below patient's documented comfort goal04/07/2023 1452 by Wei Herrmann RNOutcome: Adequate for discharge04/07/2023 1239 by Wei Herrmann RNOutcome: Progressing as expectedGoal: Reduction in pain sensation04/07/2023 1452 by Wei Herrmann RNOutcome: Adequate for discharge04/07/2023 1239 by Wei Herrmann RNOutcome: Progressing as expected Problem: Urinary Elimination - ImpairedGoal: Return to baseline elimination pattern04/07/2023 1452 by Wei Herrmann RNOutcome: Adequate for discharge04/07/2023 1239 by Wei Herrmann RNOutcome: Progressing as expected Problem: Falls, Risk ofGoal: Absence of falls04/07/2023 1452 by Wei Herrmann RNOutcome: Adequate for discharge04/07/2023 1239 by Wei Herrmann RNOutcome: Progressing as expected 07780-3Uuvv of care ewveZO6589-50-39N37:52:27Plan of care noteTXT1.2.840.019833.1.13.104 .2.7.2.617812|[id number] lable for patient yrrp13879-5WbkgEDXFXOPBXV[address] StreetTXTX[address] 008570UKRZRRIYYAZNPWWUIMPVKB07 23-04-074:52:271.2.840.56243 0.1.72.3.15|1.2.840.768799.1.1 3.104.2.7.2.727879_[id number] [facility] 2023-04-07 12:39:18 W5sw27iHasieLF1uoJ7M m6nmy1Q8jd v9+BX5OfcTQ5Rz6q0CNqb+nqGXXcYC X7889037-89-89P79:39:18Formatt ing of this note might be different from the original.Problem: PainGoal: Control of pain at or below patient's documented comfort goalOutcome: Progressing as expectedGoal: Reduction in pain sensationOutcome: Progressing as expected Problem: Urinary Elimination - ImpairedGoal: Return to baseline elimination patternOutcome: Progressing as expected Problem: Falls, Risk ofGoal: Absence of fallsOutcome: Progressing as expected 28726-2Aekp of care ganvAC6935-22-08J41:39:28Plan of care noteTXT1.2.840.800958.1.13.104 .2.7.2.125728|[id number] lable for patient gzup82414-2LropYWOXVDHEVD[address] StreetTXTX[address] [id number]27 23-04-072:39:281.2.840.26354 0.1.72.3.15|1.2.840.716724.1.1 3.104.2.7.2.727879_[id number] [facility] 2023-04-07 08:52:19 63L7hLeqCpnk4v/J5Vbx qsLKr5LMaO UO/7W+x/pccXANpVJoz14mnnwRj316 mSf/9442-03-23U11:52:19Formatt ing of this note might be different from the original.Lott catheter removed per MD's order. Will continue to monitor UOP 89567-7Wpmsb YgjxMP6708-50-57U61:53:26Nurse NoteTXT1.2.840.496364.1.13.104 .2.7.2.203703|[id number] lable for patient woyq83340-5VobnEMWDIIPSCH[address] EeahKscalgdznThobfywzrEZZD7965 [id number]57 23-04-07T08:53:261.2.840.15161 0.1.72.3.15|1.2.840.646956.1.1 3.104.2.7.2.727879_[id number] [facility] 2023-04-06 21:00:32 E4eQ3SZG4o54LcfV8Of9 RW0lriKMAj /jDaaCWFthgZN4G9zT+A6bdaQMbXXz EeBQ0971-44-63V01:00:32Summary : Post Y-90 Procedure @1924 patient was taken by serafin from IR Procedure Room #5 to [facility] to be scanned. Patient remained intubated and under care of anesthesia team. @2009 Post scan, patient was extubated by anesthesia while still in [facility], patient tolerated extubation well, was able to speak and communicate with care team. @2034 patient was delivered to [facility] PACU escorted by anesthesia and IR nurse on monitor. Patient tolerated transfer well and was left under care of JEZ Newberry in PACU. 16403-0Pylmb ZgicNG2715-40-44T34:06:14Nurse NoteTXT1.2.840.851199.1.13.104 .2.7.2.979683|[id number] lable for patient spnh83621-8Ryfhm WauxGH831690550Mfvdo Kenneth Lopez RN[address]TXTX[address] [id number]63 23-04-06:06:141.2.840.16397 0.1.72.3.15|1.2.840.752041.1.1 3.104.2.7.2.727879_[id number] Kam Lopez [facility] 2023-04-06 16:25:00 aiJY0SkV70+SIeogynZW fHEDXWZKV3 Emi6j7fZTesloCf4gMVx060z8S7lLH /k9s7409-42-77O17:25:00Formatt ing of this note might be different from the original.Pt and anesthesia in the room. Pt in care of anesthesia. See their notes for vital signs, medications, and other documentation. 01800-1Jabgj EgwqCR5370-45-39W83:09:22Nurse NoteTXT1.2.840.503509.1.13.104 .2.7.2.763881|[id number] lable for patient qevc99748-2GdhiCS398820955Aip E Smith RN[address]TXTX[address] [id number] 23-04-06:09:221.2.840.86750 0.1.72.3.15|1.2.840.164348.1.1 3.104.2.7.2.727879_[id number] Suzan Pillai RN [facility] 2023-04-01 09:00:00 eEMTyTt4KAFM22uYPdmD KSVYsLg4uA m2RtoXy3Dlp7Yi1kK588L2g2rR6YkP kcmm9220-56-46D70:00:00Formatt ing of this note might be different from the original.Pt vss. Right groin w/o hematoma. Dressing clean dry intact. Distal pulses palpable. 99110-9Cxqzg ByvpMQ3349-97-08Y80:13:54Nurse NoteTXT1.2.840.187710.1.13.104 .2.7.2.846661|[id number] lable for patient [id number] E Smith RN[address] CsagErnlrstvfFthauwzqoNEQM6193 239167NNSAMQTXALRZRUYWFQYLVL59 23-04-01T13:13:541.2.840.00848 0.1.72.3.15|1.2.840.190683.1.1 3.104.2.7.2.727879_[id number] Suzan Pillai RN [facility] 2023-03-10 11:00:00 2jTxr5cQ4CymLil2xRf0 drAoZW2FoW VZoQBjFmkO2WSyiik0zlibBF4VtAZQ gQzo8132-23-08T34:00:00Formatt ing of this note is different from the original.Images from the original note were not included.Per pt he is here to complete lab orders for Viktoriya Hernández FNP . Yevgeniy Arreaga 03/10/2023 11:18 AMVenipuncture collection performed by clean technique on the back of right hand. Total of 1 attempts were made. Slight pressure and a bandage/dressing were applied to the site(s). The patient experienced no complications. The following specimens were processed according to instructions and sent to [facility] laboratories per lab order on 03/10/2023: LT BLUE 1 SST 1 RED LAV 1 PPT DK GREEN (LiHep) DK GREEN (SodH) BETANCOURT DK BLUE (K2) DK BLUE (S) ACD Blood Culture NIPT/NTD 11739-1Vklqy ZdqkUU8506-49-74F37:30:41Nurse NoteTXT1.2.840.186695.1.13.104 .2.7.2.552563|[id number] lable for patient ttbx19651-1Ftkxm NoteLNUT[address] MqgmSmggmsrrtKzqephflaHXHI9175 [id number] 23-03-10T11:30:411.2.840.37822 0.1.72.3.15|1.2.840.689898.1.1 3.104.2.7.2.727879_[id number] [facility]
[2023-09-10 13:07] LABS: Absolute Lymphocytes (CBC) 0.3 K/uL (0.7-4.9); Hematocrit 39.4 % (39.6-49.0); Lymphocytes % 2.5 % (15.3-44.8); MCV 104.4 fL (80-100); MPV 7.4 fL (7.6-11.3); Platelets 66 thou/uL (152-406); RBC Red Blood Cell Count 3.78 M/uL (4.33-5.43)
[2023-09-10 13:11] LABS: Protime INR 2.3
[2023-09-10 13:14] LABS: Arterial Blood Carboxyhemoglob 2.5 % (0-1.5); Blood Gas Oxyhemoglobin 92.9 % (94-97); Blood O2 Saturation 96.7 % (92-98.5)
[2023-09-10 13:18] LABS: SARS-CoV-2 Antigen Rapid Res Negative (Negative)
[2023-09-10 13:23] LABS: Albumin 1.8 g/dL (3.4-5.0); Bilirubin Total 11.7 mg/dL (0.2-1.0); Potassium 4.9 mEq/L (3.5-5.1); Protein, Total 7.3 g/dL (6.4-8.2)
--- NOTE | 2023-09-10 13:26 | RAD REPORT ---
EXAM DESCRIPTION: RAD - Chest Single View - 09/10/2023 1:01 pm CLINICAL HISTORY: DYSPNEA COMPARISON: Chest Single View dated 08/25/2022; Chest Single View dated 06/17/2022; Chest Single View dated 12/30/2021; Chest Single View dated 12/09/2021 FINDINGS: Lines: Similar size and configuration. Lungs: Airspace opacities present at the left lung base. Diffuse chronic prominence of the interstiti um. Pleural: Mild left costophrenic angle. Cardiac: The heart size is within normal limits. Mediastinum: Within normal limits. Bones: No acute fractures. Other: None IMPRESSION: Mild airspace disease in left lung base could reflect atelectasis and/or pneumonia.
[2023-09-10] MEDS ORDERED: ONDANSETRON 4 MG/2 ML VIAL IV PRN (13:43)
[2023-09-10] MEDS ORDERED: ACETAMINOPHEN 500 MG TAB PO PRN (13:43)
--- NOTE | 2023-09-10 13:52 | EDPHYS ---
Physician Documentation [facility] Name: Joseph Quach Age: 63 yrs Sex: Male : 1960 Arrival Date: 09/10/2023 Time: 12:23 Bed 4 Private MD: ED Physician Severino Anaya HPI: 09/10 13:57 This 63 yrs old Male presents to ER via Wheelchair with complaints of Shortness Of kb Breath. 13:57 Pt is a 63 year old male who presents with shortness of breath, cough, congestion and kb fever that started one week ago. Denies n/v/d. Historical: - Allergies: 12:41 Fish Containing Products; cm10 - PMHx: 12:41 angina pectoris; cirrhosis of liver; COPD; High Cholesterol; Hypertensive disorder; cm10 Myocardial infarction; - Immunization history:: Adult Immunizations up to date. - Social history:: Smoking status: unknown. ROS: 13:57 Abdomen/GI: Negative for abdominal pain, nausea, vomiting, diarrhea, and constipation, kb 13:57 Constitutional: Positive for fever, 13:57 ENT: Positive for rhinorrhea, sinus congestion, 13:57 Respiratory: Positive for cough, shortness of breath, 13:57 All other systems are negative, Exam: 13:57 Head/Face: Normocephalic, atraumatic. ENT: Moist Mucous membranes Cardiovascular: kb Regular rate Abdomen/GI: Soft, non-tender. No distention MS/ Extremity: Pulses equal, no cyanosis. Neurovascular intact. Full, normal range of motion. Neuro: Awake and alert, GCS 15, oriented to person, place, time, and situation. Moves all extremities. Normal gait. 13:57 Constitutional: The patient appears alert, awake, 13:57 Respiratory: moderate respiratory distress is noted, Respirations: labored breathing, Breath sounds: decreased breath sounds, that are mild, that are moderate, are located in both bases, 13:57 Skin: Appearance: Color: jaundiced, Vital Signs: 12:39 BP 148 / 69; Pulse 114; Resp 24; Temp 97.1(TE); Pulse Ox 83% on R/A; cm10 14:05 BP 135 / 89; Pulse 111; Resp 27 S; Pulse Ox 99% on BiPAP; as6 15:46 BP 113 / 80; Pulse 101; Resp 24; Pulse Ox 99% on R/A; hb 12:39 Pt being placed on BiPap during triage. cm10 MDM: 12:28 Patient medically screened. kb 13:37 Data reviewed: vital signs, nurses notes. Management of patient was discussed with the kb following: Hospitalist: Hospitalist team, pt accepted for admission under Dr Clark. 13:57 Differential diagnosis: Bronchitis Chronic Obstructive Pulmonary Disease pneumonia, kb pulmonary edema, covid, flu, rsv. Antibiotic administration: Rocephin and Zithromax given. Consideration of Admission/Observation Patient was admitted/placed on observation. Escalation of care including admission/observation considered. Historians other than the Patient: Daughter/Son: son. Care significantly affected by the following chronic conditions: Hypertension, Chronic Obstructive Pulmonary Disease, Liver Disease. Counseling: I had a detailed discussion with the patient and/or guardian regarding the historical points, exam findings, and any diagnostic results supporting the discharge/admit diagnosis, lab results, radiology results, the need for further work-up and treatment in the hospital. 09/10 12:32 Order name: Blood Culture Adult (2) kb 09/10 12:32 Order name: CBC with Diff; Complete Time: 11:58 kb 09/10 12:32 Order name: CMP; Complete Time: 13:23 kb 09/10 12:32 Order name: Lactate w/ 2H reflex if indic.; Complete Time: 13:32 kb 09/10 12:32 Order name: Protime (+inr); Complete Time: 13:16 kb 09/10 12:32 Order name: Ptt, Activated; Complete Time: 13:16 kb 09/10 12:32 Order name: SARS-COV-2 Antigen Rapid; Complete Time: 13:23 kb 09/10 12:32 Order name: Flu; Complete Time: 13:23 kb 09/10 12:32 Order name: RSV; Complete Time: 13:23 kb 09/10 13:05 Order name: ABG; Complete Time: 13:36 kb 09/10 13:49 Order name: Urinalysis w/ reflexes; Complete Time: 11:58 EDMS 09/10 13:50 Order name: Basic Metabolic Panel EDMS 09/10 13:50 Order name: Basic Metabolic Panel; Complete Time: 11:58 EDMS 09/10 13:50 Order name: Basic Metabolic Panel EDMS 09/10 13:50 Order name: Basic Metabolic Panel EDMS 09/10 13:50 Order name: Basic Metabolic Panel EDMS 09/10 13:50 Order name: CBC with Automated Diff EDMS 09/10 13:50 Order name: CBC with Automated Diff; Complete Time: 11:58 EDMS 09/10 13:50 Order name: CBC with Automated Diff EDMS 09/10 13:50 Order name: CBC with Automated Diff EDMS 09/10 13:50 Order name: CBC with Automated Diff EDMS 09/10 13:50 Order name: Magnesium EDMS 09/10 13:50 Order name: Magnesium; Complete Time: 11:58 EDMS 09/10 13:50 Order name: Magnesium EDMS 09/10 13:50 Order name: Magnesium EDMS 09/10 13:50 Order name: Magnesium EDMS 09/10 13:50 Order name: Lactate w/ 2H reflex if indic.; Complete Time: 11:58 EDMS 09/10 14:15 Order name: Ammonia; Complete Time: 11:58 EDMS 09/10 12:32 Order name: Chest Single View XRAY; Complete Time: 13:28 kb 09/10 12:33 Order name: BIPAP kb 09/10 13:55 Order name: BiPap ([employer] Only) EDMS 09/10 16:03 Order name: US; Complete Time: 16:03 EDMS 09/10 12:32 Order name: EKG; Complete Time: 12:33 kb 09/10 13:45 Order name: CONS Physician Consult EDMS 09/10 12:32 Order name: Accucheck; Complete Time: 12:47 kb 09/10 12:32 Order name: Cardiac monitoring; Complete Time: 12:47 kb 09/10 12:32 Order name: EKG - Nurse/Tech; Complete Time: 12:43 kb 09/10 12:32 Order name: IV Saline Lock - Large Bore; Complete Time: 13:54 kb 09/10 12:32 Order name: Labs collected and sent; Complete Time: 13:54 kb 09/10 12:32 Order name: O2 Per Protocol; Complete Time: 12:47 kb 09/10 12:32 Order name: O2 Sat Monitoring; Complete Time: 12:47 kb 09/10 12:32 Order name: Vital Signs; Complete Time: 12:47 kb Administered Medications: 14:04 Drug: Zithromax IVPB 500 mg IVPB once over 1 hrs; mix in 250 mL NS Route: IVPB; Infused as6 Over: 1 hrs; Site: left antecubital; 14:04 Drug: Rocephin IV 1 grams IV at calculated rate once; Given slow IV push per pharmacy as6 instructions Route: IV; Rate: calculated rate; Site: left antecubital; Disposition Summary: 09/10/23 13:52 Hospitalization Ordered Notes: Hospitalization Status: Inpatient Admission kb Provider: Belem Clark Location: Telemetry/MedSurg (Inpatient) kb Condition: Fair kb Problem: new kb Symptoms: are unchanged kb Bed/Room Type: Standard kb Room Assignment: 207(09/10/23 14:13) eb Diagnosis - Pneumonia, unspecified organism kb - Severe sepsis without septic shock kb - Other cirrhosis of liver kb - Unspecified jaundice kb - Hypoxia kb Forms: - Medication Reconciliation Form kb - SBAR form kb - Leadership Thank You Letter kb Addendum: 09/11/2023 18:10 I agree with the assessment and plan of care. e c2 Signatures: Dispatcher [employer] Elizabeth Valdivia, CONCHE LOADER AND UNLOADER-C CONCHE LOADER AND UNLOADER-Ckb Anuja Ambrocio Ashby, RN RN as6 Diane Valdez RN RN cm10 Severino Anaya MD MD ec2 Corrections: (The following items were deleted from the chart) 09/10 14:02 13:57 Respiratory: Positive for cough, kb kb 14:13 13:52 kb eb
--- NOTE | 2023-09-10 13:52 | ER ---
Nurse's Notes [facility] Name: Joseph Quach Age: 63 yrs Sex: Male : 1960 Arrival Date: 09/10/2023 Time: 12:23 Bed 4 Private MD: Diagnosis: Pneumonia, unspecified organism;Severe sepsis without septic shock;Other cirrhosis of liver;Unspecified jaundice;Hypoxia Presentation: 09/10 12:39 Chief complaint: Patient states: Shortness of breath X1 week that has been getting cm10 worse. Pt O2 sat 83% on RA, pt placed on 4L NC and improved to 91%. Respiratory at bedside placing pt on BiPap. Coronavirus screen: Client denies travel out of the [place] in the last 14 days. Ebola Screen: Patient denies travel to an Ebola-affected area in the 21 days before illness onset. No symptoms or risks identified at this time. Initial Sepsis Screen: Does the patient meet any 2 criteria? RR > 20 per min. HR > 90 bpm. Does the patient have a suspected source of infection? No. Patient's initial sepsis screen is negative. Risk Assessment: Do you want to hurt yourself or someone else? Patient reports no desire to harm self or others. Onset of symptoms was September 10, 2023. 12:39 Acuity: AISLINN 2 cm10 12:39 Method Of Arrival: Wheelchair cm10 Historical: - Allergies: 12:41 Fish Containing Products; cm10 - PMHx: 12:41 angina pectoris; cirrhosis of liver; COPD; High Cholesterol; Hypertensive disorder; cm10 Myocardial infarction; - Immunization history:: Adult Immunizations up to date. - Social history:: Smoking status: unknown. Screenin:12 [facility] ED Fall Risk Assessment (Adult) History of falling in the last 3 months, ph including since admission No falls in past 3 months (0 pts) Confusion or Disorientation No (0 pts) Intoxicated or Sedated No (0 pts) Impaired Gait Yes (1 pt) Mobility Assist Device Used Yes (1 pt) Altered Elimination Yes (1 pt) Score/Fall Risk Level 3 or more points = High Risk Oriented to surroundings, Maintained a safe environment, Hourly rounding (assess needs \T\ fall precautionary measures) done, Used ambulatory aids as needed (educated on \T\ assisted with). Abuse screen: Denies threats or abuse. Denies injuries from another. Nutritional screening: No deficits noted. Tuberculosis screening: No symptoms or risk factors identified. Vital Signs: 12:39 BP 148 / 69; Pulse 114; Resp 24; Temp 97.1(TE); Pulse Ox 83% on R/A; cm10 14:05 BP 135 / 89; Pulse 111; Resp 27 S; Pulse Ox 99% on BiPAP; as6 15:46 BP 113 / 80; Pulse 101; Resp 24; Pulse Ox 99% on R/A; hb 12:39 Pt being placed on BiPap during triage. cm10 ED Course: 12:28 Patient arrived in ED. ts1 12:28 Elizabeth Leong FNP-C is [facility]. kb 12:28 Severino Anaya MD is Attending Physician. kb 12:40 EKG done, by ED staff, reviewed by Elizabeth BUENO. aa5 12:41 Triage completed. cm10 12:41 Arm band placed on Patient placed in an exam room, on a stretcher, on oxygen, on cm10 lining inserter, on pulse oximetry. 12:49 BIPAP Sent. hb 13:03 Chest Single View XRAY In Process Unspecified. EDMS 13:11 Accessed peripheral vein via ultrasound, utilizing dynamic ultrasound technique using ph 20G Nexia IV catheter ,sterile technique, per hospital protocol. Clean \T\ dry. Dressing intact. Good blood return. Flushes easily. bilateral ACs. 13:13 Patient has correct armband on for positive identification. Placed in gown. Bed in low ph position. Call light in reach. Side rails up X2. Client placed on continuous cardiac and pulse oximetry monitoring. NIBP monitoring applied. 13:52 Belem Clark MD is Hospitalizing Provider. kb Administered Medications: 14:04 Drug: Zithromax IVPB 500 mg IVPB once over 1 hrs; mix in 250 mL NS Route: IVPB; Infused as6 Over: 1 hrs; Site: left antecubital; 14:04 Drug: Rocephin IV 1 grams IV at calculated rate once; Given slow IV push per pharmacy as6 instructions Route: IV; Rate: calculated rate; Site: left antecubital; Medication: 13:13 VIS not applicable for this client. ph Outcome: 13:52 Decision to Hospitalize by Provider. kb 16:50 Patient left the ED. ec2 Signatures: Dispatcher [employer] EDElizabeth Rosales, INSPECTOR MECHANICAL-C INSPECTOR MECHANICAL-CkDana Mcgregor, RN RN aa5 Ynaeth Valentin, JEZ RN ph Kala Qureshi, RN RN Lawson Dangelo, JEZ RN as6 Sheba Fisher PAS PAS ts1 Diane Valdez RN RN cm10 Severino Anaya MD MD ec2
[2023-09-10] MEDS ORDERED: NA CHLORIDE 0.9% 250 ML ONE (13:56)
[2023-09-10] MEDS ORDERED: AZITHROMYCIN 500 MG INJ IVPB ONE (13:56)
[2023-09-10] MEDS ORDERED: CEFTRIAXONE 1000 MG/VIAL ONE (13:56)
--- NOTE | 2023-09-10 14:10 | P.HP ---
Certification for Inpatient Patient admitted to: Inpatient Patient will require the following post-hospital care: None Practitioner: I am a practitioner with admitting privileges, knowledge of patient current condition, hospital course, and medical plan of care. Services: Services provided to patient in accordance with Admission requirements found in Title 42 Section 412.3 of the Code of Federal Regulations Patient History Date of Service: 09/10/23 Reason for admission: Shortness of breath History of Present Illness: 62-year-old male with history of COPD on home O2, chronic diastolic congestive heart failure, recently diagnosed liver cancer presents to the emergency department for shortness of breath. He reports 2 to 3 days of worsening dyspnea, increased oxygen requirement. Patient reports that at home he typically does not have to use his oxygen all the time, son is at bedside, reports worsening shortness of breath and confusion. Reports no cough, no reported chest pain, fever, nausea vomiting diarrhea rectal bleeding or vomiting blood. Plan to admit for pneumonia, acute hypoxic respiratory failure on BiPAP, pulmonology consult Allergies Fish Containing Products Allergy (Verified 10/31/21 09:57) Anaphylaxis Home Medications: Gabapentin 300 mg PO BID #60 08/25/21 Mometasone/Formoterol [Dulera 200 Mcg/5 Mcg Inhaler] 2 puff IH BID #1 inhaler 08/25/21 Metoprolol Succinate 25 mg PO DAILY 11/19/21 Aspirin [Aspirin EC 81 MG] 81 mg PO DAILY #30 tablet. 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 - Family History Sister -: Cancer, Other (see notes) Notes: lupus Brother -: Kidney disease, Other (see notes) Notes: lupus Mother -: Other (see notes) Notes: copd - Social History Alcohol use: No CD- Drugs: No Caffeine use: No Review of Systems per HPI Physical Examination - Vital Signs Pulse: 112 Pulse Ox (%): 99 - Physical Exam General: Alert, In no apparent distress, Oriented x2, Mild distress, Other (On BiPAP) HEENT: Atraumatic, Normocephalic Neck: Supple, JVD not distended Respiratory: Diminished, Expiratory wheezes Cardiovascular: No edema, Normal pulses, Regular rate/rhythm Capillary refill: <2 Seconds Gastrointestinal: Normal bowel sounds, Soft and benign Musculoskeletal: No clubbing, No swelling Integumentary: No rashes Neurological: Other (Confused, no focal deficit) - Studies Laboratory Data (last 24 hrs) 09/10/23 09/10/23 09/10/23 12:50 12:50 12:50 WBC 12.50 H Hgb 13.6 Hct 39.4 L Plt Count 66 L PT 24.7 H INR 2.30 APTT 35.0 Sodium 132 L Potassium 4.9 BUN 33 H Creatinine 0.84 Glucose 116 H Total Bilirubin 11.7 H AST 115 H ALT 60 Alkaline Phosphatase 152 H Microbiology Data (last 24 hrs): 09/10/23 12:44 Nasopharnyx Respiratory Syncytial Virus Ag Scrn - Final 09/10/23 12:44 Nasopharnyx Influenza Type A Antigen Screen - Final 09/10/23 12:44 Nasopharnyx Influenza Type B Antigen Screen - Final Assessment and Plan - Plan Plan Assessment: Acute on chronic hypoxic respiratory failure secondary to COPD with exacerbation Sepsis with secondary to pneumonia HX Liver masses, nonocclusive left portal vein thrombosis suspected liver cancer History of hepatitis C History of CAD Hypertension Plan: Acute on chronic hypoxic respiratory failure secondary to COPD with exacerbation vs pna BiPAP, ABG, continue steroids, as needed nebulizer treatments, pulmonology consult in place. Daily saturations on 2 L per nasal cannula. Patient has home oxygen does not take steroids chronically per patient. Sepsis, trend lactic, IV fluids, IV antibiotic HXLiver masses, new nonocclusive left portal vein thrombosis suspected liver cancer: Abdominal ultrasound, ammonia Patient pursuing work-up as an outpatient, reports he has seen local oncology who referred him to another specialist he is awaiting them to clear his insurance he can have additional testing including MRI of the liver. Discussed results with patient. History of CAD: Continue home medications Hypertension: Continue home medications DVT PPX:Lovenox Code status: Full Discharge Plan: Home Plan to discharge in: 24 Hours - Advance Directives Does patient have a Living Will: No Does patient have a Durable POA for Healthcare: No Discharge Plan: Home Plan to discharge in: 48 Hours - Advance Directives Does patient have a Living Will: No Does patient have a Durable POA for Healthcare: No - Code Status/Comfort Care Code Status: Full Code Critical Care: No Time Spent Managing Pts Care (In Minutes): 55
--- NOTE | 2023-09-10 16:03 | RAD REPORT ---
EXAM DESCRIPTION: US - Liver Only - 09/10/2023 3:51 pm CLINICAL HISTORY: Evaluate for ascites, liver mass, COMPARISON: Abdomen Pelvis Wo Contrast dated 08/25/2022 FINDINGS: The liver demonstrates 6.3 x 5.9 cm mass in the right hepatic lobe. This has mixed echogen icity.Cirrhotic liver morphology with coarsened echotexture and nodular contour. Mild perihepatic ascites and lower quadrant. IMPRESSION: 1. 6.3 x 5.9 cm right hepatic lobe mass could represent hepatocellular carcinoma. This h as been seen on prior CT from 08/25/2022. 2. Mild volume of ascites.
[2023-09-10] MEDS ORDERED: PIPERACIL/TAZO 3.375 GM VIAL IV ONE (18:05)
[2023-09-10] MEDS ORDERED: NA CHLORIDE 0.9% 100 ML ONE (18:05)
[2023-09-10] MEDS ORDERED: METHYLPREDNISOLONE 125 MG INJ ONE ×2 (18:05→23:13)
[2023-09-10] MEDS ORDERED: ALBUMIN HUMAN 25% 100 ML IV ONE (18:06)
[2023-09-10] MEDS: PIPER TAZO 3.375 GM in NA CHLORIDE 0.9% 100 ML IV SCH (18:10)
[2023-09-10] MEDS: METHYLPREDNISOLONE 125 MG INJ IV SCH (18:10)
[2023-09-10] MEDS: ALBUMIN HUMAN 25% 100 ML IV ONE (18:10)
[2023-09-10 18:15] LABS: Urine Bacteria None Seen /HPF (<20); Urine Bilirubin 2+ (Negative); Urine Blood Negative (Negative); Urine Clarity Extremely Turbid (Clear); Urine Color Dark-Yellow (Yellow); Urine Glucose NEGATIVE (Negative); Urine Mucus 1+ /HPF (None Seen); Urine Protein TRACE (Negative); Urine Urobilinogen 3+ (Normal)
[2023-09-10 18:17] LABS: Urine Crystals Unidentified Few /HPF (None Seen)
[2023-09-10 19:59] LABS: Anisocytosis 1+; Blood Morphology Comment NOTED (NOT SEEN); Platelet Estimate DECR; Poikilocytosis 1+; White Blood Cell Scan OK (OK)
--- NOTE | 2023-09-10 21:30 | RAD REPORT ---
EXAM DESCRIPTION: CTAbdomen Pelvis W Contrast - 09/10/2023 9:07 pm CLINICAL HISTORY: Cirrhosis with HCCa; sepsis; SBP COMPARISON: Abdomen Pelvis W Contrast dated 06/17/2022 TECHNIQUE: CT of the abdomen and pelvis was performed. All CT scans are performed using dose optimization technique as appropriate and may include automated exposure control or mA/KV adjustment according to patient size. FINDINGS: Lower chest: Cardiomegaly. Coronary calcifications. Dependent atelectasis . Liver: Cirrhotic liver morphology. Exophytic right hepatic lobe mass measuring 6.8 cm, previously 4.2 cm. There are some other hypoattenuating areas in the liver including a possible mass or lymph node at the caudate. MRI could better assess. Biliary: No biliary ductal dilatation. Stomach: No significant focal abnormality. Duodenum: No significant focal abnormality. Pancreas: No significant abnormality. Spleen: Mild splenomegaly. Large perisplenic collaterals. Low-density lesion in the superior aspect o f the spleen is unchanged, likely benign. Adrenal: No suspicious lesions. Kidney/ureter: No hydronephrosis. No renal calculi. Left lower pole renal cyst. Retroperitoneum: No retroperitoneal adenopathy. Vascular: No aneurysm. Bowel: No significant focal abnormality. Peritoneum: Small volume of ascites. Bladder: Grossly unremarkable. Reproductive: No adnexal masses. Bones: No acute fracture. Other: n/a IMPRESSION: No acute intra-abdominal or pelvic finding. Enlarged exophytic mass at the right hepatic lobe likely reflecting hepatocellular carcinoma. New mas s at the caudate. Other areas of heterogeneity. Background of cirrhosis. Mild abdominopelvic ascites.
[2023-09-11 04:38] LABS: Absolute Lymphocytes (CBC) 0.2 K/uL (0.7-4.9); Hematocrit 38.4 % (39.6-49.0); Lymphocytes % 1.6 % (15.3-44.8); MCV 105.5 fL (80-100); MPV 7.9 fL (7.6-11.3); Platelets 59 thou/uL (152-406); RBC Red Blood Cell Count 3.64 M/uL (4.33-5.43)
[2023-09-11 04:45] VITALS: BMI 24.7
[2023-09-11 05:13] LABS: Albumin 2.1 g/dL (3.4-5.0); Bilirubin Direct 6.9 mg/dL (0-0.2); Magnesium 2.3 mg/dL (1.6-2.4); Protein, Total 7.4 g/dL (6.4-8.2)
[2023-09-11 05:19] LABS: Bilirubin Total 10.9 mg/dL (0.2-1.0); Potassium 5.6 mEq/L (3.5-5.1)
[2023-09-11] MEDS ORDERED: METHYLPREDNISOLONE 125 MG INJ ONE ×4 (06:08→23:16)
--- NOTE | 2023-09-11 07:58 | P.PN ---
Subjective Date of Service: 09/11/23 Chief Complaint: Shortness of breath Tolerated BiPAP overnight, more alert, O2 on 4 L 90% Coughing with thin liquids, will add a speech eval in a.m. - Physical Exam General: Alert, In no apparent distress, Oriented x3 HEENT: Atraumatic, Normocephalic, PERRLA, Mucous membr. moist/pink Neck: 2+ carotid pulse no bruit, JVD not distended Respiratory: Expiratory expiratory wheeze, Normal air movement Cardiovascular: No edema, Normal pulses Capillary refill: <2 Seconds Gastrointestinal: Normal bowel sounds, Hyperactive Musculoskeletal: No clubbing, No swelling Integumentary: No rashes, No breakdown Neurological: Normal speech, Normal strength at 5/5 x4 extr Review of Systems per HPI Physical Examination - Vital Signs Temperature: 97.0 F Blood Pressure: 123/68 Pulse: 93 Respirations: 20 Pulse Ox (%): 95 - Studies Laboratory Data (last 24 hrs) 09/10/23 09/10/23 09/10/23 12:50 12:50 12:50 WBC 12.50 H Hgb 13.6 Hct 39.4 L Plt Count 66 L PT 24.7 H INR 2.30 APTT 35.0 Sodium 132 L Potassium 4.9 BUN 33 H Creatinine 0.84 Glucose 116 H Total Bilirubin 11.7 H AST 115 H ALT 60 Alkaline Phosphatase 152 H Microbiology Data (last 24 hrs): 09/10/23 12:44 Nasopharnyx Respiratory Syncytial Virus Ag Scrn - Final 09/10/23 12:44 Nasopharnyx Influenza Type A Antigen Screen - Final 09/10/23 12:44 Nasopharnyx Influenza Type B Antigen Screen - Final Assessment And Plan - Plan Plan Assessment/Plan: Acute on chronic hypoxic respiratory failure secondary to COPD with exacerbation vs pna BiPAP, ABG, continue steroids, as needed nebulizer treatments, pulmonology consult in place, home O2 BiPAP FiO2 50 Productive cough suspected aspiration Sepsis without shock likely secondary to pneumonia trend lactic, IV fluids, IV antibiotic We will add a speech eval for swallow evaluation Hepatic encephalopathy likely secondary to liver cirrhosis HXLiver masses, new nonocclusive left portal vein thrombosis suspected liver cancer: HX Liver masses, nonocclusive left portal vein thrombosis suspected liver cancer History of hepatitis C Transaminitis CT of the abdomen pelvis abdominal ultrasound, ammonia T. bili 11 point 7 repeat 10.9 Ammonia 82, repeat 75 Lactulose when p.o., resume Xifaxan History of CAD: Continue home medications Hypertension: Continue home medications DVT PPX:Lovenox Code status: Full Discharge Plan: Home - Advance Directives Does patient have a Living Will: No Does patient have a Durable POA for Healthcare: No Discharge Plan: Home - Code Status/Comfort Care Code Status: Full Code Critical Care: Yes Time Spent Managing PTS Care (In Minutes): 55
[2023-09-11 08:32] LABS: Blood Morphology Comment NOTED (NOT SEEN); Macrocytosis 1+; Platelet Estimate DECR; Toxic Granulation 1+
[2023-09-11] MEDS ORDERED: AZITHROMYCIN IV 500 MG in NA CHLORIDE 0.9% 250 ML IVPB SCH (09:00)
[2023-09-11] MEDS ORDERED: CEFTRIAXONE 1,000 MG in NA CHLORIDE 0.9% 50 ML IVPB SCH (09:00)
[2023-09-11] MEDS ORDERED: NA CHLORIDE 0.9% 100 ML ONE ×3 (09:10→23:16)
[2023-09-11] MEDS ORDERED: PIPERACIL/TAZO 3.375 GM VIAL IV ONE ×3 (09:11→23:16)
[2023-09-11] MEDS: ALBUMIN HUMAN 25% 100 ML IV ONE (09:37)
[2023-09-11] MEDS: Rifaximin 550 MG Tab PO SCH (09:37)
[2023-09-11] MEDS ORDERED: LACTULOSE 20 GM/30 ML UCUP ONE ×2 (09:40→17:09)
[2023-09-11] MEDS ORDERED: INFLUENZA VACCINE (for 6+ mo) 0.5 ML DOSE IMVAC ONE (09:40)
[2023-09-11] MEDS: LACTULOSE 20 GM/30 ML UCUP PO SCH (09:41)
[2023-09-11] MEDS: INFLUENZA VACCINE (for 6+ mo) 0.5 ML DOSE IMVAC ONE (09:42)
[2023-09-11 15:09] LABS: Potassium 4.6 mEq/L (3.5-5.1)
[2023-09-12] MEDS ORDERED: METHYLPREDNISOLONE 125 MG INJ ONE ×4 (05:10→23:35)
[2023-09-12 05:26] LABS: Protime INR 2.27
[2023-09-12 05:27] LABS: Absolute Lymphocytes (CBC) 0.2 K/uL (0.7-4.9); Hematocrit 33.9 % (39.6-49.0); Lymphocytes % 3.1 % (15.3-44.8); MPV 8.1 fL (7.6-11.3); Platelets 46 thou/uL (152-406)
[2023-09-12 05:39] LABS: Bilirubin Direct 4.8 mg/dL (0-0.2); Bilirubin Indirect, Calculated 3.1 mg/dL (0.2-0.8); Bilirubin Total 7.9 mg/dL (0.2-1.0); Magnesium 2.4 mg/dL (1.6-2.4); Potassium 4.8 mEq/L (3.5-5.1); Protein, Total 6.6 g/dL (6.4-8.2)
[2023-09-12] MEDS: ALBUMIN HUMAN 25% 100 ML IV ONE (07:14)
[2023-09-12] MEDS: FUROSEMIDE 20 MG/ 2ML VIAL IV ONE (07:14)
[2023-09-12] MEDS ORDERED: LACTULOSE 20 GM/30 ML UCUP ONE (07:57)
[2023-09-12] MEDS ORDERED: FENTANYL CITR 100 MCG/2 ML ONE ×4 (07:57→21:10)
[2023-09-12] MEDS: FENTANYL CITR 100 MCG/2 ML IV PRN (08:01)
--- NOTE | 2023-09-12 08:29 | RAD REPORT ---
[facility] CLINICAL HISTORY: pneumonia COMPARISON: Chest Single View dated 09/10/2023; Chest Single View dated 08/25/2022; Chest Single View dated 06/17/2022; Chest Single View dated 12/30/2021 TECHNIQUE: Portable AP view of the chest. FINDINGS: Stable left basilar patchy airspace opacification. Right lung remains clear. No pneumotho rax or effusion. The cardiomediastinal contours are unremarkable. IMPRESSION: Stable left basilar patchy airspace opacification, may represent atelectasis or pneumoni a.
[2023-09-12] MEDS: NA CHLORIDE 0.9% 100 ML ONE (08:47)
--- NOTE | 2023-09-12 10:01 | P.PN ---
Subjective Date of Service: 09/12/23 Chief Complaint: Shortness of breath Subjective: Improving <Madeline Mcbride - Last Filed: 09/12/23 12:46> Date of Service: 09/12/23 <Cyn Catherine - Last Filed: 09/12/23 13:42> Review of Systems General: Chills Eyes: Unremarkable ENT: Unremarkable Respiratory: Unremarkable Cardiovascular: Unremarkable Gastrointestinal: Unremarkable Genitourinary: Unremarkable Musculoskeletal: Unremarkable Integumentary: Unremarkable Neurological: Other (alert and oriented this am) <Madeline Mcbride - Last Filed: 09/12/23 12:46> Physical Examination - Vital Signs Temperature: 96.5 F Blood Pressure: 135/89 Pulse: 83 Respirations: 21 Pulse Ox (%): 96 - Physical Exam General: Alert, In no apparent distress, Oriented x3 HEENT: Atraumatic, Normocephalic Neck: Supple, 2+ carotid pulse no bruit Respiratory: Diminished Cardiovascular: No edema, Regular rate/rhythm Capillary refill: <2 Seconds Gastrointestinal: Hypoactive Musculoskeletal: No clubbing Integumentary: No rashes Neurological: Normal speech Lymphatics: No axilla or inguinal lymphadenopathy External genitalia: Deferred Rectal: Deferred <Madeline Mcbride - Last Filed: 09/12/23 12:46> Assessment And Plan - Current Problems (Diagnosis) (1) COPD exacerbation Current Visit: No Status: Acute Plan: Pt off of BiPap, on High flow oxygen at 6L. SpO2 stable, no complaints of SOB Continue Methylprednisone, continue continuous SpO2 monitoring. Bronchodilators. (2) Hepatocellular carcinoma Current Visit: No Status: Acute Plan: Liver ultrasound perfomed. "IMPRESSION: 1. 6.3 x 5.9 cm right hepatic lobe mass could represent hepatocellular carcinoma. This has been seen on prior CT from 08/25/2022. 2. Mild volume of ascites." Continue f/u with oncology (3) Liver cirrhosis Current Visit: No Status: Acute Plan: Ammonia down and AMS resolved. Will decrease lactulose to BID. Qualifiers: Ascites presence: with ascites (4) Neutrophilic leukocytosis Current Visit: Yes Status: Acute Plan: Continue Zosyn and Rifaximin until return of blood cultures. (no growth at 24 hours) Discharge Plan: Home Plan to discharge in: 48 Hours <Madeline Mcbride - Last Filed: 09/12/23 12:46> Physician Review Additional Text: 09/12/23 13:37 Pt seen and examined. I agree withe the note by the COMPUTER TECHNOLOGY INSTRUCTOR. Pt is still in the ICU. Will continue treatment for the following medical problems listed below: Acute resp failure with hypoxia: Likely due to COPD exacerbation. Will continue steroid, duoneb, oxygen and prn BIPAP. consulted Pulm. Septic shock / pna: Improved. Will continue iv abx. Follow up blood cx. Hx of liver cirrhosis, liver mass and Hepatitis C: Abd is not distended. Continue lactulose and rifaximin for Acute metabolic encephalopathy due to elevated ammonia. Ammonia has trended down ( 23 <- 75 <- 85) Hypotension: Hold BP meds. Hyerkalemia: k is 4.8. Will monitor Anemia: Hgb is 11.9. Will monitor H/H. Hx of CAD: continue home meds <Cyn Catherine - Last Filed: 09/12/23 13:42>
--- NOTE | 2023-09-12 13:38 | EKG ---
Test Date: 2023-09-10 Test Time: 12:40:41 Instructor Physical Education: BURAK MEASUREMENT RESULTS: Intervals: Rate: 117 ID: [id number] QRSD: 90 QT: 336 QTc: 468 Uneeda: P: 87 ID: [id number] QRS: 90 T: 58 INTERPRETIVE STATEMENTS: Sinus tachycardia T wave abnormality, consider anterior ischemia Abnormal ECG Compared to ECG 12/30/2021 08:56:37 T-wave abnormality now present Possible ischemia now present Electronically Signed On 09-12-23 13:33:31 BAGGAGE SCREENER by Wayne Jaramillo
--- NOTE | 2023-09-12 14:44 | RAD REPORT ---
EXAM DESCRIPTION: RAD - Barium Swallow Modified - 09/12/2023 2:26 pm CLINICAL HISTORY: Cough, choking, pneumonia FINDINGS: Laryngeal penetration not cleared with thin liquid via cup and straw aspiration with cough on thin via cup and chin tuck technique pharyngeal residue: vallecular, pyriform, posterior wall decreased mastication and delayed swallow reflex with soft and bite sized as well as dry required mul tiple swallows for solid premature with clearing of soft and bite sized and dry solid fluoro time 3.20 16 fluoroscopic spot series obtained
[2023-09-12] MEDS ORDERED: NA CHLORIDE 0.9% 100 ML ONE (16:32)
[2023-09-12] MEDS ORDERED: PIPERACIL/TAZO 3.375 GM VIAL IV ONE (16:33)
[2023-09-12] MEDS: LACTULOSE 20 GM/30 ML UCUP PO SCH (20:57)
[2023-09-13] MEDS ORDERED: FENTANYL CITR 100 MCG/2 ML ONE ×2 (04:19→08:01)
[2023-09-13 05:19] LABS: Absolute Lymphocytes (CBC) 0.1 K/uL (0.7-4.9); Hematocrit 35.4 % (39.6-49.0); MCV 107.6 fL (80-100); MPV 7.5 fL (7.6-11.3); Platelets 42 thou/uL (152-406); RBC Red Blood Cell Count 3.29 M/uL (4.33-5.43)
[2023-09-13] MEDS ORDERED: METHYLPREDNISOLONE 125 MG INJ ONE (05:36)
[2023-09-13 05:37] LABS: Magnesium 2.3 mg/dL (1.6-2.4); Potassium 4.7 mEq/L (3.5-5.1)
--- NOTE | 2023-09-13 08:26 | P.PN ---
Subjective Date of Service: 09/13/23 Chief Complaint: Shortness of breath Subjective: Worsening <Madeline Mcbride - Last Filed: 09/13/23 08:20> Date of Service: 09/13/23 <Cyn Catherine - Last Filed: 09/13/23 09:45> Review of Systems 10-point ROS is otherwise unremarkable General: Weakness Eyes: Unremarkable ENT: Unremarkable Respiratory: Cough, Shortness of Breath, SOB with Excertion Cardiovascular: Unremarkable Gastrointestinal: Constipation Genitourinary: Unremarkable Musculoskeletal: Unremarkable Integumentary: Unremarkable Neurological: Unremarkable <Madeline Mcbride - Last Filed: 09/13/23 08:20> Physical Examination - Vital Signs Temperature: 97.0 F Blood Pressure: 119/90 Pulse: 77 Respirations: 24 Pulse Ox (%): 92 - Physical Exam General: Alert, Oriented x3, Mild distress HEENT: Atraumatic, Normocephalic, Scleral icterus Neck: Supple, 2+ carotid pulse no bruit Respiratory: Diminished, Other (tachypnea, wet sounding cough, really only moving air in upper lung pascual) Cardiovascular: No edema, Other (except to left arm ) Capillary refill: <2 Seconds Gastrointestinal: Normal bowel sounds, Soft and benign Musculoskeletal: No clubbing Integumentary: No rashes, Other (ecchymosis at all venipuncture sites, color seems a bit more jaundiced today) Neurological: Normal speech Lymphatics: No axilla or inguinal lymphadenopathy External genitalia: Deferred <Madeline Mcbride - Last Filed: 09/13/23 08:20> Assessment And Plan - Current Problems (Diagnosis) (1) COPD exacerbation Current Visit: No Status: Acute Plan: Pt off of BiPap, on High flow oxygen at 6L. SpO2 stable, no complaints of SOB Continue Methylprednisone, continue continuous SpO2 monitoring. Bronchodilators. Add incentive spirometry, more frequent albuterol nebs, atrovent. (2) Hepatocellular carcinoma Current Visit: No Status: Acute Plan: Liver ultrasound perfomed. "IMPRESSION: 1. 6.3 x 5.9 cm right hepatic lobe mass could represent hepatocellular carcinoma. This has been seen on prior CT from 08/25/2022. 2. Mild volume of ascites." Continue f/u with oncology (3) Liver cirrhosis Current Visit: No Status: Acute Plan: Ammonia down and AMS resolved. Will decrease lactulose to BID. Continue xifaxan. monitor liver function Qualifiers: Ascites presence: with ascites (4) Neutrophilic leukocytosis Current Visit: Yes Status: Acute Plan: Continue Zosyn and Rifaximin until return of blood cultures. (no growth at 24 hours) (5) Edema of extremity Current Visit: Yes Status: Acute Plan: Noted left upper extremity edema, will US to r/o thrombus <Madeline Mcbride - Last Filed: 09/13/23 08:20> - Plan Pt seen and examined. I agree with the note by the ORACLE EBS ARCHITECT. Pt is still in the ICU. Will continue treatment for the following medical problems listed below: Acute resp failure with hypoxia: Likely due to COPD exacerbation. Will continue steroid, duoneb, oxygen and prn BIPAP. consulted Pulm. Septic shock 2/ pna: Improved. Will continue iv abx. Follow up blood cx. Hx of liver cirrhosis, liver mass and Hepatitis C: Abd is not distended. Continue lactulose and rifaximin for Acute metabolic encephalopathy due to elevated ammonia. Ammonia has trended down ( 23 <- 75 <- 85). Continue lactulose 20mg po daily and rifaximin. Hypotension: Hold BP meds. Hyerkalemia: k is 4.7. Will monitor Thrombocytopenia: Plt is 42. Likely due to liver cirrhosis. Will avoid antiplatelet. Anemia: Hgb is 11.9. Will monitor H/H. Hx of CAD: continue home meds Dispo: Will transfer pt to the floor. <Cyn Catherine - Last Filed: 09/13/23 09:45>
[2023-09-13] MEDS: ASPIRIN EC 81 MG TAB PO SCH (08:49)
[2023-09-13] MEDS ORDERED: ALBUTEROL 2.5 MG/3 ML NEB SOL ONE (10:06)
[2023-09-13] MEDS: ALBUTEROL 2.5 MG/3 ML NEB SOL NEB PRN (10:09)
--- NOTE | 2023-09-13 10:15 | RAD REPORT ---
EXAM DESCRIPTION: US - UPPER EXTREMITY VENOUS UNILATE - 09/13/2023 10:07 am CLINICAL HISTORY: swelling left arm Arm swelling and edema COMPARISON: No comparisons FINDINGS: Left upper extremity venous system was interrogated with Doppler technique. Normal flow, c ompressibility and augmentation was noted. There is no DVT present. IMPRESSION: No evidence of left upper extremity deep venous thrombosis.
[2023-09-13] MEDS ORDERED: METHYLPREDNISOLONE 40 MG INJ ONE (11:36)
[2023-09-13] MEDS: FENTANYL CITR 100 MCG/2 ML IV PRN (14:22)
[2023-09-13] MEDS: IPRATROPIUM BROM 0.5MG/2.5ML NEB SCH (15:30)
[2023-09-13] MEDS: ALBUTEROL 2.5 MG/3 ML NEB SOL NEB SCH (15:30)
[2023-09-14 06:07] LABS: Absolute Lymphocytes (CBC) 0.1 K/uL (0.7-4.9); Hematocrit 35.2 % (39.6-49.0); Lymphocytes % 1.6 % (15.3-44.8); MCV 106.9 fL (80-100); MPV 7.5 fL (7.6-11.3); Platelets 54 thou/uL (152-406); RBC Red Blood Cell Count 3.29 M/uL (4.33-5.43)
[2023-09-14 06:26] LABS: Magnesium 2.2 mg/dL (1.6-2.4); Potassium 4.7 mEq/L (3.5-5.1)
[2023-09-14] MEDS: CHLORHEXIDINE 0.12% 473ML BOT MM SCH (09:45)
[2023-09-14] MEDS: LACTULOSE 20 GM/30 ML UCUP PO SCH (09:46)
--- NOTE | 2023-09-14 10:50 | P.PN ---
Date of Service: 09/14/23 Subjective Date of Service: 09/14/23 Chief Complaint: Shortness of breath Subjective: Improved respiratory status Review of Systems 10-point ROS is otherwise unremarkable General: Weakness Eyes: Unremarkable ENT: Unremarkable Respiratory: Cough, Shortness of Breath, SOB with Exertion improved, "working with respiratory" Cardiovascular: Unremarkable Gastrointestinal: Constipation Genitourinary: Unremarkable Musculoskeletal: Unremarkable Integumentary: Unremarkable Neurological: Unremarkable Physical Examination - Vital Signs Temperature: 97.5 F Blood Pressure: 128/78 Pulse: 75 Respirations: 19 Pulse Ox (%): 95 on 2L N/C - Physical Exam General: Alert, Oriented x3, Mild distress HEENT: Atraumatic, Normocephalic, Scleral icterus Neck: Supple, 2+ carotid pulse no bruit Respiratory: improved movement, improved lower lobe engagement Cardiovascular: No edema Capillary refill: <2 Seconds Gastrointestinal: Normal bowel sounds, Soft and benign Musculoskeletal: No clubbing Integumentary: No rashes Neurological: Normal speech Lymphatics: No axilla or inguinal lymphadenopathy External genitalia: Deferred Assessment And Plan - Current Problems (Diagnosis) (1) COPD exacerbation Current Visit: No Status: Acute Plan: Pt off of BiPap, on oxygen via NC at 2L. SpO2 stable at 95%, no complaints of SOB Continue Methylprednisone, continue spot SpO2 monitoring. Bronchodilators. Add incentive spirometry, more frequent albuterol nebs, atrovent. (2) Hepatocellular carcinoma Current Visit: No Status: Acute Plan: Liver ultrasound perfomed. "IMPRESSION: 1. 6.3 x 5.9 cm right hepatic lobe mass could represent hepatocellular carcinoma. This has been seen on prior CT from 08/25/2022. 2. Mild volume of ascites." Continue f/u with oncology (3) Liver cirrhosis Current Visit: No Status: Acute Plan: Ammonia down and AMS resolved. Will decrease lactulose to BID. Continue xifaxan. monitor liver function Ammonia trend upward, will consider increasing Lactulose to BID again Qualifiers: Ascites presence: with ascites (4) Neutrophilic leukocytosis Current Visit: Yes Status: Acute Plan: Continue Zosyn and Rifaximin until return of blood cultures. (no growth at 48 hours) (5) Edema of extremity Current Visit: Yes Status: Acute Plan: Noted left upper extremity edema, US negative for DVT <Madeline Mcbride - Last Filed: 09/14/23 11:51> Pt seen and examined. I agree with the note by the DIVISION ENGINEER. He is doing well. Will continue lactulose and rifaxmin. Monitor Ammonia level. <Cyn Catherine - Last Filed: 09/14/23 15:59>
--- NOTE | 2023-09-14 12:38 | P.CNS ---
Date of Consult: 09/11/23 Reason for Consult: History of COPD and liver cancer Chief Complaint: Shortness of breath History of Present Illness: Christiana 62 years of age has a history of liver cancer and COPD on home O2 chronic diastolic heart failure is being treated at [facility] here with worsening dyspnea increasing oxygen requirement was very jaundiced patient is confused history obtained from the son and noticed increasing confusion Allergies Fish Containing Products Allergy (Verified 10/31/21 09:57) Anaphylaxis Home Medications: Aspirin [Aspirin EC 81 MG] 81 mg PO DAILY 09/11/23 Fluticasone/Umeclidin/Vilanter [Trelegy Ellipta 100-62.5-25] 1 inh IH BID 09/11/23 Ipratropium/Albuterol Sulfate [Iprat-Albut 0.5-3(2.5) mg/3 ml] 3 ml NEB QID PRN 09/11/23 Multivitamin 1 tab PO DAILY 09/11/23 Nicotine [Nicoderm] 1 patch TD DAILY 09/11/23 Oxycodone HCl/Acetaminophen [Oxycodone-Acetaminophn 7.5-325] 1 tab PO BID 09/11/23 Spironolactone [Aldactone*] 25 mg PO DAILY 09/11/23 carvediloL [Coreg] 3.125 mg PO BID 09/11/23 - Past Medical/Surgical History Diabetic: No -: COPDon home oxygen -: Tobacco abuse -: Hypertension -: 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 - Family History Sister Medical History: Cancer, Other (see notes) Notes: lupus Brother Medical History: Kidney disease, Other (see notes) Notes: lupus Mother Medical History: Other (see notes) Notes: copd - Social History Smoking Status: Unknown if ever smoked Alcohol use: No CD- Drugs: No Caffeine use: No Place of Residence: Home Review of Systems is unable to be obtained Physical Examination Temp Pulse Resp BP Pulse Ox 98.3 F 95 H 20 131/65 90 L 09/14/23 11:56 09/14/23 11:56 09/14/23 11:56 09/14/23 11:56 09/14/23 11:56 General: Alert, Unresponsive HEENT: Scleral icterus Respiratory: Clear to auscultation bilaterally, Diminished, Expiratory wheezes Cardiovascular: No edema, Regular rate/rhythm, Normal S1 S2 Gastrointestinal: Normal bowel sounds, Soft and benign - Problems (1) COPD (chronic obstructive pulmonary disease) Current Visit: Yes Status: Acute Plan: Patient has a history of COPD gases satisfactory on 60% FiO2 be able to titrate his O2 down carbon dioxide level is normal patient is auto anticoagulated his microcytosis from his chronic renal failure patient's bilirubin is very elevated abnormal LFTs otherwise vital signs are satisfactory. CT scan reviewed is got bibasilar changes possible pneumonia with IV antibiotics can change to p.o. he does have Breztri at home No DVT CT of the abdomen No acute intra-abdominal or pelvic finding. Enlarged exophytic mass at the right hepatic lobe likely reflecting hepatocellular carcinoma. New mass at the caudate. Other areas of heterogeneity. Background of cirrhosis. Mild abdominopelvic ascites Overall prognosis very poor Qualifiers: Emphysema type: unspecified
--- NOTE | 2023-09-14 15:40 | RAD REPORT ---
EXAM DESCRIPTION: RAD - Chest Single View - 09/14/2023 3:20 pm CLINICAL HISTORY: follow up Chest pain. COMPARISON: Chest Single View dated 09/12/2023; Chest Single View dated 09/10/2023; Chest Single View dated 08/25/2022; Chest Single View dated 06/17/2022 FINDINGS: Portable technique limits examination quality. Mild bilateral pulmonary opacities are present, greater on the left likely representing pulmonary candelaria ma or infection. The findings appear stable since prior study. The heart is mildly enlarged in size. No displaced fractures. IMPRESSION: Mild CHF versus viral infection pattern is noted, unchanged since 09/12/2023.
[2023-09-14] MEDS: ARFORMOTEROL TARTRATE 15 MCG/2 ML VIAL.NEB NEB SCH (20:09)
[2023-09-14] MEDS: predniSONE 20 MG TAB PO SCH (20:43)
[2023-09-15] MEDS: LACTULOSE 20 GM/30 ML UCUP PO SCH (08:20)
[2023-09-15] MEDS: levoFLOXacin 750 MG TAB PO SCH (08:21)
[2023-09-15 08:50] VITALS: O2SAT 86
--- NOTE | 2023-09-15 09:38 | P.PN ---
Date of Service: 09/15/23 Subjective Date of Service: 09/15/23 Chief Complaint: Shortness of breath Subjective: Improved respiratory status Review of Systems 10-point ROS is otherwise unremarkable General: Weakness Eyes: Unremarkable ENT: Unremarkable Respiratory: Cough, Shortness of Breath, SOB with Exertion improved, "working with respiratory" Cardiovascular: Unremarkable Gastrointestinal: Constipation Genitourinary: Unremarkable Musculoskeletal: Unremarkable Integumentary: Unremarkable Neurological: Unremarkable Physical Examination - Vital Signs Temperature: 97.5 F Blood Pressure: 128/78 Pulse: 75 Respirations: 19 Pulse Ox (%): 95 on 2L N/C - Physical Exam General: Alert, Oriented x3, Mild distress HEENT: Atraumatic, Normocephalic, Scleral icterus Neck: Supple, 2+ carotid pulse no bruit Respiratory: improved movement, improved lower lobe engagement Cardiovascular: No edema Capillary refill: <2 Seconds Gastrointestinal: Normal bowel sounds, Soft and benign Musculoskeletal: No clubbing Integumentary: No rashes Neurological: Normal speech Lymphatics: No axilla or inguinal lymphadenopathy External genitalia: Deferred Assessment And Plan - Current Problems (Diagnosis) (1) COPD exacerbation Current Visit: No Status: Acute Plan: Pt off of BiPap, on oxygen via NC at 2L. SpO2 stable at 95%, no complaints of SOB Continue Methylprednisone, continue spot SpO2 monitoring. Bronchodilators. Add incentive spirometry, more frequent albuterol nebs, atrovent. Pt has home O2, will likely be discharged today (2) Hepatocellular carcinoma Current Visit: No Status: Acute Plan: Liver ultrasound perfomed. "IMPRESSION: 1. 6.3 x 5.9 cm right hepatic lobe mass could represent hepatocellular carcinoma. This has been seen on prior CT from 08/25/2022. 2. Mild volume of ascites." Continue f/u with oncology (3) Liver cirrhosis Current Visit: No Status: Acute Plan: Ammonia down and AMS resolved. Will decrease lactulose to BID. Continue xifaxan. monitor liver function Ammonia trend upward, will consider increasing Lactulose to BID again Qualifiers: Ascites presence: with ascites (4) Neutrophilic leukocytosis Current Visit: Yes Status: Acute Plan: Continue Zosyn and Rifaximin until return of blood cultures. (no growth at 48 hours) Dr. Douglass assessed yesterday and changed antibiotics to po levaquin. (5) Edema of extremity Current Visit: Yes Status: Acute Plan: Noted left upper extremity edema, US negative for DVT walking hallway with rollator with PT, likely home (to Son's home) today <Madeline Mcbride - Last Filed: 09/15/23 09:36> Pt seen and examined. I agree with the note by the DRAFTING LAYOUT MAN. Continue current therapy <Cyn Catherine - Last Filed: 09/15/23 17:31>
--- NOTE | 2023-09-15 09:40 | P.DS ---
Admission Date: 09/10/23 Discharge Date: 09/15/23 Comment: Pt has home O2, rollator, HH Reason for Admission: Shortness of breath Consultations: Dr. Douglass - Problems (1) COPD exacerbation Status: Acute (2) Hepatocellular carcinoma Status: Acute (3) Liver cirrhosis Status: Acute Qualifiers: Ascites presence: with ascites (4) Neutrophilic leukocytosis Status: Acute (5) Edema of extremity Status: Acute Brief History of Present Illness: 62-year-old male with history of COPD on home O2, chronic diastolic congestive heart failure, recently diagnosed liver cancer presents to the emergency department for shortness of breath. He reports 2 to 3 days of worsening dyspnea, increased oxygen requirement. Patient reports that at home he typically does not have to use his oxygen all the time, son is at bedside, reports worsening shortness of breath and confusion. Reports no cough, no reported chest pain, fever, nausea vomiting diarrhea rectal bleeding or vomiting blood. Plan to admit for pneumonia, acute hypoxic respiratory failure on BiPAP, pulmonology consult Hospital Course: Plan: Patient has a history of COPD, is auto anticoagulated, has microcytosis from his chronic renal failure. His bilirubin is very elevated with abnormal LFTs, mild abdominopelvic ascites, with history of hepatocellular carcinoma. He was i nitially very confused with elevated ammonia. Given Lactulose and Xifaxin. Ammonia levels have stabilized and pt is alert and oriented. Vital signs are now satisfactory. CT showed pneumonia, he was treated with IV antibiotics: is now tolerating po Levaquin, has Breztri at home. He has home health and home oxygen and is agreeable to discharge with follow up with Dr. Douglass, Hem/Onc, and PCP Overall prognosis very poor <Madeline Mcbride - Last Filed: 09/15/23 15:07> Admission Date: 09/10/23 Discharge Date: 09/16/23 Hospital Course: Pt seen and examined. I agree with the note by the [employer]Y CLEANING MACHINE OPERATOR. Ok to discharge. <Cyn Catherine - Last Filed: 09/16/23 15:34> Disposition: DC HOME/HOME HEALTH CARE Discharge Condition: FAIR Vital Signs/Physical Exam: Temp Pulse Resp BP Pulse Ox 97.6 F 99 H 24 H 136/80 85 L 09/15/23 08:00 09/15/23 08:00 09/15/23 08:00 09/15/23 08:00 09/15/23 08:00 Subjective Date of Service: 09/15/23 Chief Complaint: Shortness of breath Subjective: Improved respiratory status Review of Systems 10-point ROS is otherwise unremarkable General: Weakness Eyes: Unremarkable ENT: Unremarkable Respiratory: Cough, Shortness of Breath, SOB with Exertion improved, "working with respiratory", walked hallways with Rollater and O2, pt would like to go home Cardiovascular: Unremarkable Gastrointestinal: Constipation Genitourinary: Unremarkable Musculoskeletal: Unremarkable Integumentary: Unremarkable Neurological: Unremarkable Physical Examination - Vital Signs Temperature: 97.5 F Blood Pressure: 128/78 Pulse: 75 Respirations: 19 Pulse Ox (%): 95 on 2L N/C - Physical Exam General: Alert, Oriented x3 HEENT: Atraumatic, Normocephalic, Scleral icterus Neck: Supple, 2+ carotid pulse no bruit Respiratory: improved movement, improved lower lobe engagement, sitting up in bed today without complaint Cardiovascular: No edema Capillary refill: <2 Seconds Gastrointestinal: Normal bowel sounds, Soft and benign Musculoskeletal: No clubbing Integumentary: No rashes Neurological: Normal speech Lymphatics: No axilla or inguinal lymphadenopathy External genitalia: Deferred Laboratory Data at Discharge: WBC 5.60 thou/uL (4.3-10.9) 09/14/23 05:48 Hgb 12.1 g/dL (13.6-17.9) L 09/14/23 05:48 Hct 35.2 % (39.6-49.0) L 09/14/23 05:48 Plt Count 54 thou/uL (152-406) L D 09/14/23 05:48 PT 24.4 SECONDS (9.5-12.5) H 09/12/23 05:05 INR 2.27 09/12/23 05:05 APTT 35.9 SECONDS (24.3-36.9) 09/12/23 05:05 Sodium 134 mEq/L (136-145) L 09/14/23 05:48 Potassium 4.7 mEq/L (3.5-5.1) 09/14/23 05:48 BUN 26 mg/dL (7-18) H 09/14/23 05:48 Creatinine 0.54 mg/dL (0.70-1.30) L 09/14/23 05:48 Glucose 154 mg/dL (74-106) H 09/14/23 05:48 Magnesium 2.2 mg/dL (1.6-2.4) 09/14/23 05:48 Total Bilirubin 7.9 mg/dL (0.2-1.0) H 09/12/23 05:04 AST 84 U/L (15-37) H 09/12/23 05:04 ALT 57 U/L (16-61) 09/12/23 05:04 Alkaline Phosphatase 110 U/L (45-117) D 09/12/23 05:04 Lipase 116 U/L (13-75) H 09/12/23 05:04 <Mcbride,Madeline - Last Filed: 09/15/23 15:07> Vital Signs/Physical Exam: Temp Pulse Resp BP Pulse Ox 97.7 F 107 H 18 146/81 H 87 L 09/15/23 16:00 09/15/23 16:00 09/15/23 16:00 09/15/23 16:00 09/15/23 16:00 Laboratory Data at Discharge: WBC 5.60 thou/uL (4.3-10.9) 09/14/23 05:48 Hgb 12.1 g/dL (13.6-17.9) L 09/14/23 05:48 Hct 35.2 % (39.6-49.0) L 09/14/23 05:48 Plt Count 54 thou/uL (152-406) L D 09/14/23 05:48 PT 24.4 SECONDS (9.5-12.5) H 09/12/23 05:05 INR 2.27 09/12/23 05:05 APTT 35.9 SECONDS (24.3-36.9) 09/12/23 05:05 Sodium 134 mEq/L (136-145) L 09/14/23 05:48 Potassium 4.7 mEq/L (3.5-5.1) 09/14/23 05:48 BUN 26 mg/dL (7-18) H 09/14/23 05:48 Creatinine 0.54 mg/dL (0.70-1.30) L 09/14/23 05:48 Glucose 154 mg/dL (74-106) H 09/14/23 05:48 Magnesium 2.2 mg/dL (1.6-2.4) 09/14/23 05:48 Total Bilirubin 7.9 mg/dL (0.2-1.0) H 09/12/23 05:04 AST 84 U/L (15-37) H 09/12/23 05:04 ALT 57 U/L (16-61) 09/12/23 05:04 Alkaline Phosphatase 110 U/L (45-117) D 09/12/23 05:04 Lipase 116 U/L (13-75) H 09/12/23 05:04 <Cyn Catherine - Last Filed: 09/16/23 15:34> Diet: Low sodium Activity: Ad ivan <Madeline Mcbride - Last Filed: 09/15/23 15:07> <Cyn Catherine - Last Filed: 09/16/23 15:34> Home Medications: Aspirin [Aspirin EC 81 MG] 81 mg PO DAILY 09/11/23 Fluticasone/Umeclidin/Vilanter [Trelegy Ellipta 100-62.5-25] 1 inh IH BID 09/11/23 Ipratropium/Albuterol Sulfate [Iprat-Albut 0.5-3(2.5) mg/3 ml] 3 ml NEB QID PRN 09/11/23 Multivitamin 1 tab PO DAILY 09/11/23 Nicotine [Nicoderm*] 1 patch TD DAILY 09/11/23 Oxycodone HCl/Acetaminophen [Oxycodone-Acetaminophn 7.5-325] 1 tab PO BID 09/11/23 Spironolactone [Aldactone*] 25 mg PO DAILY 09/11/23 carvediloL [Coreg*] 3.125 mg PO BID 09/11/23 Lactulose [Cephulac*] 30 ml PO BID 30 Days #240 ml 09/15/23 Rifaximin [Xifaxan] 550 mg PO BID 30 Days #60 tab 09/15/23 levoFLOXacin [Levaquin*] 750 mg PO DAILY 5 Days #5 tab 09/15/23 predniSONE [Prednisone*] 20 mg PO BID 5 Days #10 tab 09/15/23 New Medications: Lactulose [Cephulac*] 30 ml PO BID 30 Days #240 ml levoFLOXacin [Levaquin*] 750 mg PO DAILY 5 Days #5 tab predniSONE [Prednisone*] 20 mg PO BID 5 Days #10 tab Rifaximin [Xifaxan] 550 mg PO BID 30 Days #60 tab Physician Discharge Instructions: Continue ad ivan activity. Take lactulose twice a day to control ammonia level. Continue other home meds. Follow up with PCP within 1 - 2 weeks Followup: Rosalina Sanz MD [Primary Care Provider] - 1-2 Weeks
[2023-09-15 16:33] VITALS: BP 146/81; TEMP 97.7
== END 2023-09-15 18:11 | disposition home health service (06) | DRG 871 ==
LOC: ER 12:23 → ERHOLD 13:41 → 2ND 15:46 → 3RD-ICU 17:18 → 4TH 09-13 11:55
PROVIDERS: ADMIT Hospitalist; ATTEND Hospitalist
PROC: 4A033R1 Measurement of Arterial Saturation, Peripheral, Percutaneous Approach (ICD-10-PCS; principal; 2023-09-10)
PROC: 5A09357 Assistance with Respiratory Ventilation, Less than 24 Consecutive Hours, Continuous Positive Airway Pressure (ICD-10-PCS; 2023-09-10)
PROC: 5A0935A Assistance with Respiratory Ventilation, Less than 24 Consecutive Hours, High Flow/Velocity Cannula (ICD-10-PCS; 2023-09-12)
DX: A41.9 Sepsis, unspecified organism (principal); G93.41 Metabolic encephalopathy; J18.9 Pneumonia, unspecified organism; J96.21 Acute and chronic respiratory failure with hypoxia; R65.21 Severe sepsis with septic shock; J44.0 Chronic obstructive pulmonary disease with (acute) lower respiratory infection; I50.32 Chronic diastolic (congestive) heart failure; J44.1 Chronic obstructive pulmonary disease with (acute) exacerbation; C22.0 Liver cell carcinoma; R18.8 Other ascites; I11.0 Hypertensive heart disease with heart failure; K76.82 Hepatic encephalopathy; D64.9 Anemia, unspecified; D69.6 Thrombocytopenia, unspecified; E87.5 Hyperkalemia; E78.00 Pure hypercholesterolemia, unspecified; K74.69 Other cirrhosis of liver; B18.2 Chronic viral hepatitis C; I25.10 Atherosclerotic heart disease of native coronary artery without angina pectoris; I25.2 Old myocardial infarction; Z79.02 Long term (current) use of antithrombotics/antiplatelets; Z79.52 Long term (current) use of systemic steroids; Z79.82 Long term (current) use of aspirin; Z99.81 Dependence on supplemental oxygen; Z91.013 Allergy to seafood; Z79.899 Other long term (current) drug therapy
CPT/HCPCS: 36415; 36600; 71045; 74177; 74230; 76705; 80048; 80053; 80076; 81001; 82140; 82248; 82805; 83605; 83690; 83735; 85025; 85610; 85730; 87040; 87804; 87807; 87811; 90471; 92526; 92611; 93005; 93971; 94640; 94660; 94760; 96374; 96375; 97110; 97116; 97161; 97530; 99285; J0696; J1940; J2543; J2920; J2930; J3010; J7050; J7512; J7605; J7613; J7644; P9047; Q2035; Q9967

== ENCOUNTER → 2023-09-25 | Emergency (ER) | payer OTHER ==
[~2023-09-25] MED LIST: ALBUMIN HUMAN 25% 100 ML IV ONE; ALBUTEROL 2.5 MG/3 ML NEB SOL ONE; CEFEPIME 2 GM VIAL ONE; D10W 250 ML IV ONE; D5 0.9 NS 1,000 ML IV ONE; FENTANYL CITR 100 MCG/2 ML ONE; IPRATROPIUM BROM 0.5MG/2.5ML ONE; LIDOCAINE VISCOUS 2% 10ML ORAL SOLN ONE; METRONIDAZOLE 500mg IVPB 500 MG/100 ML BAG IV ONE; NA CHLORIDE 0.9% 1,000 ML ONE; NA CHLORIDE 0.9% 100 ML ONE; NA CHLORIDE 0.9% 250 ML ONE; NA CHLORIDE 0.9% 500 ML ONE; NOREPINEPHRINE BITARTRATE/D5W 4 MG/250 ML BAG IV ONE; PANTOPRAZOLE 40 MG INJ ONE; SOD POLYSTYREN SUL 15 GM/60 ML UCUP ONE; VITAMIN K (ADULT) 10 MG/ML ONE
--- OUTSIDE RECORDS SUMMARY | 2023-09-25 06:34 | XMS REPORT | Continuity of Care Document ---
Author Name Unknown Address [address] [facility] [address] [place] [address] [facility] Address [address] [facility]. [address] [place] [address] Care Team Providers Care Fine [employer]el[employer] Sales Associate Name Role Phone Renae JIMENEZ Maribell Primary Care Physician [phone] CHRISTOPHER MARISCAL Attending Clinician Unavailable Doctor Unassigned, [place] Attending Clinician U Christopher Cho MD Attending Clinician [phone] ANA LI Attending Clinician Unavailable ANA LI Attending Clinician Unavailable RADIOLOGY Attending Clinician Unavailable Radiology Attending Clinician Unavailable KASIE PERSAUD Attending Clinician UnavailKasie Lloyd MD Attending Clinician [phone] Tavia Mariscal MD Attending Clinician [phone] Juan Guy MD Attending Clinician [phone] JUAN GUY Attending Clinician Unavailable Kelsie Valdez RN Attending Clinician UnaSally David Attending Clinician UnavailNaomie PAUL, Emily Attending Clinician [phone] Christine Black MD Attending Clinician [phone] Wily Araujo MD Attending Clinician +- [phone] WILY ARAUJO Attending Clinician CHRISTINE Reilly Attending Clinician Unavailable Viktoriya Perera Attending Clinician [phone] VIKTORIYA HERNÁNDEZ Attending Clinician Unavailable Pob, [facility] Attending Clinician Unavailabl e [facility] Attending Clinician Unavailable HETAL PAT Attending Clinician Unavailable [facility] Attending Clinician Unavail able Rodney Hetal JIMENEZ Attending Clinician [phone] Lab, [facility] Attending Clinician Unavailable CORAZON SERRANO Attending Clinician Unavailable LEX MEHTA Attending Clinician Unavailable Laila STEELE, Brigida Attending Clinician + [phone] Boyd Claros MD Attending Clinician [phone] Lex Mehta MD Attending Clinician [phone] Sarahi Victor MD Attending Clinician [phone] Nickie Davidson RN Attending Clinician Unavailable ARNOL CAREY Attending Clinician Unavailable Sheba Bhagat Attending Clinician [phone] Nader Cross MD Attending Clinician [phone] Arnol Carey MD Attending Clinician [phone] ANA LI Admitting Clinician Unavailable SHELBY SCHMITT Admitting Clinician KASIE Thomas Admitting Clinician UnavailJUAN Azul Admitting Clinician Unavailable Christine Black MD Admitting Clinician [phone] CHRISTINE BLACK Admitting Clinician Unavailable SARAHI VICTOR Admitting Clinician Unavailable Sarahi Victor MD Admitting Clinician [phone] ARNOL CAREY Admitting Clinician Unavailable Arnol Carey MD Admitting Clinician [phone] Payers Payer Name Policy Type Policy Number Effective Date Expirati on Date Source Problems Condition Name Condition Details Condition Category Status Onset Date Resolution Date Last Treatment Date Treating Clinician Comments Source Thrombocyt openia Thrombocyt openia Disease Active 2021-08 00:00: 00 [facility] Gastric varices Gastric varices Disease Active 2021-08 2-08 00:00: 00 [facility] Hepatocell ular carcinoma Hepatocell ular carcinoma Disease Active 2021-08 0-20 00:00: 00 [facility] 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 hepatitis C virus infection with cirrhosis Disease Active 2021-08 0-20 00:00: 00 [facility] Volume overload Volume overload Disease Active 5-18 00:00: 00 [facility] COPD with acute exacerbati on COPD with acute exacerbati on Disease Active 4-07 00:00: 00 [facility] Obesity (BMI 30-39.9) Obesity (BMI 30-39.9) Disease Active 4-06 00:00: 00 [facility] COPD exacerbati on COPD exacerbati on Disease Active 4-06 00:00: 00 [facility] Troponin I above reference range Troponin I above reference range Disease Active 4-06 00:00: 00 [facility] Cigarette smoker Cigarette smoker Disease Active 4-06 00:00: 00 [facility] Chest pain Chest pain Disease Active 4-05 00:00: 00 [facility] Allergies, Adverse Reactions, Alerts Allergy Name Allergy Type Status Severity Reaction(s) Onset Date Inactive Date Treating Clinician Comments Source Seafood/ Fish Propensi ty to adverse reaction s Active Rash 2018-08 2-17 00:00: 00 [facility] SEAFOOD/ FISH Food Active Rash 2018-08 217 00:00: 00 [facility] Social History Social Habit Start Date Stop Date Quantity Comments Source [facility] Alcohol intake 2023-07-11 00:00:00 2023-07-11 00:00:00 Ex-drinker (finding) [facility] History of Social function 2023-07-11 00:00:00 2023-07-11 00:00:00 [facility] Tobacco use and exposure 2023-04-07 00:00:00 2023-04-07 00:00:00 Smokeless tobacco non-user [facility] Exposure to SARS-CoV-2 (event) 2022-10-08 00:00:00 2022-10-18 07:11:00 Not sure [facility] Education - What is the highest level of school you have completed or the highest degree you have received? 2021-11-04 00:00:00 2021-11-04 00:00:00 9th grade [facility] History of tobacco use 2017-05-29 00:00:00 Passive smoker [facility] Sex Assigned At 1960 00:00:00 1960 00:00:00 [facility] Smoking Status Start Date Stop Date Source Ex-smoker 2023-04-07 00:00:00 2023-04-07 [facility] Ordered Medication Name Filled Medication Name Start Date Stop Date Current Medication? Ordering Clinician Indication Dosage Frequency Signature (SIG) Comments Components Source iopamidol (ISOVUE 370-500 mL) injection 100 mL 2022-08 19:00: 00 07-18 18:04 :00 No [id number] 100mL 100 mL, Intravenou s, ONCE, 1 dose, On Tue07/18/23 at 1300, Routine [facility] carvediloL 3.125 mg tablet 2022-08 00:00: 00 Yes [id number] 3.125mg Take 1 tablet by mouth in the morning and 1 tablet in the evening. Take with meals. [facility] carvediloL 3.125 mg tablet 2022-08 00:00: 00 Yes [id number] 3.125mg Take 1 tablet by mouth in the morning and 1 tablet in the evening. Take with meals. [facility] carvediloL 3.125 mg tablet 2022-08 00:00: 00 Yes [id number] 3.125mg Take 1 tablet by mouth in the morning and 1 tablet in the evening. Take with meals. [facility] carvediloL 3.125 mg tablet 2022-08 00:00: 00 Yes [id number] 3.125mg Take 1 tablet by mouth in the morning and 1 tablet in the evening. Take with meals. [facility] carvediloL 3.125 mg tablet 2022-08 00:00: 00 Yes [id number] 3.125mg Take 1 tablet by mouth in the morning and 1 tablet in the evening. Take with meals. [facility] carvediloL 3.125 mg tablet 2022-08 00:00: 00 Yes [id number] 3.125mg Take 1 tablet by mouth in the morning and 1 tablet in the evening. Take with meals. [facility] carvediloL 3.125 mg tablet 2022-08 00:00: 00 Yes [id number] 3.125mg Take 1 tablet by mouth in the morning and 1 tablet in the evening. Take with meals. [facility] NaCl 0.9% (NS) bolus infusion 1,000 mL 04-27 19:15: 00 04-27 21:07 :00 No 1000mL at 999 mL/hr, 1,000 mL, IV Infusion, ONCE, 1 dose, On Tue04/27/23 at 1415, LARRY [facility] heparin flush (PF) 2,000 units in 1000 mL NS RTU injection 04-22 15:08: 07 04-22 15:08 :07 No IV Push, PRN, Starting on Tue04/22/23 at 1008, Intra-op [facility] heparin flush (PF) 2,000 units in 1000 mL NS RTU injection 04-22 15:08: 07 04-22 15:08 :07 No IV Push, PRN, Starting on Tue04/22/23 at 1008, Intra-op [facility] lidocaine 1% (PF) (XYLOCAINE) injection 04-22 15:07: 23 04-22 15:07 :23 No PRN, Starting on Tue04/22/23 at 1007, Until Tue04/22/23 at 1007, Routine, Intra-op [facility] lidocaine 1% (PF) (XYLOCAINE) injection 04-22 15:07: 23 04-22 15:07 :23 No PRN, Starting on Tue04/22/23 at 1007, Until Tue04/22/23 at 1007, Routine, Intra-op [facility] iohexol (OMNIPAQUE 300-100 mL) injection 100 mL 04-22 14:45: 00 04-22 15:33 :00 No [id number] 100mL 100 mL, Injection, ONCE, 1 dose, On Tue04/22/23 at 0945, Routine [facility] iohexol (OMNIPAQUE 300-100 mL) injection 100 mL 04-22 14:45: 00 04-22 15:33 :00 No [id number] 100mL 100 mL, Injection, ONCE, 1 dose, On Tue04/22/23 at 0945, Routine [facility] yttrium Y-90 resin microsphere s injection 16.4 millicurie 04-22 14:30: 00 04-22 14:30 :00 No [id number] 16.4mCi 16.4 millicurie , Intravenou s, ONCE, 1 dose, On Tue04/22/23 at 0930, Routine [facility] tc 99m-albumin (DRAXIMAGE MAA) injection 3.1 millicurie 04-14 17:00: 00 04-14 17:00 :00 No [id number] 3.1mCi 3.1 millicurie , Intravenou s, ONCE, 1 dose, On Tue04/14/23 at 1200, Routine [facility] iopamidol (ISOVUE 300-100 mL) injection 100 mL 04-14 15:30: 00 04-14 16:43 :00 No [id number] 100mL 100 mL, Intravenou s, ONCE, 1 dose, On Tue04/14/23 at 1030, Routine [facility] iopamidol (ISOVUE 300-100 mL) injection 100 mL 04-14 15:30: 00 04-14 16:43 :00 No [id number] 100mL 100 mL, Intravenou s, ONCE, 1 dose, On Maribell 04/14/23 at 1030, Routine [facility] ceFAZolin (ANCEF) injection 04-14 14:38: 40 04-14 14:38 :40 No Slow IV Push, PRN, Starting on Maribell 04/14/23 at 0938, Until Discontinu ed, LARRY, Intra-op [facility] ceFAZolin (ANCEF) injection 04-14 14:38: 40 04-14 14:38 :40 No Slow IV Push, PRN, Starting on Maribell 04/14/23 at 0938, Until Discontinu ed, LARRY, Intra-op [facility] FENTanyl PF (SUBLIMAZE (PF)) injection 04-14 14:34: 29 04-14 15:52 :08 No Slow IV Push, PRN, Starting on Maribell 04/14/23 at 0934, Until Discontinu ed, Routine, Intra-op [facility] FENTanyl PF (SUBLIMAZE (PF)) injection 04-14 14:34: 29 04-14 15:52 :08 No Slow IV Push, PRN, Starting on Maribell 04/14/23 at 0934, Until Discontinu ed, Routine, Intra-op [facility] midazolam (VERSED) injection 04-14 14:34: 21 04-14 15:52 :03 No IV Push, PRN, Starting on Maribell 04/14/23 at 0934, Until Discontinu ed, Routine, Intra-op [facility] midazolam (VERSED) injection 04-14 14:34: 21 04-14 15:52 :03 No IV Push, PRN, Starting on Maribell 04/14/23 at 0934, Until Discontinu ed, Routine, Intra-op [facility] aspirin 81 mg chewable tablet 04-11 09:12: 29 Yes 81mg Take 1 tablet by mouth in the morning. [facility] aspirin 81 mg chewable tablet 04-11 09:12: 29 Yes 81mg Take 1 tablet by mouth in the morning. [facility] mg chewable tablet 2023-0 9-11 09:12: 29 Yes 81mg Take 1 tablet by mouth in the morning. [facility] aspirin 81 mg chewable tablet 2023-0 9-11 09:12: 29 Yes 81mg Take 1 tablet by mouth in the morning. [facility] aspirin 81 mg chewable tablet 2023-0 9-11 09:12: 29 Yes 81mg Take 1 tablet by mouth in the morning. [facility] aspirin 81 mg chewable tablet 2023-0 9-11 09:12: 29 Yes 81mg Take 1 tablet by mouth in the morning. [facility] aspirin 81 mg chewable tablet 2023-0 9-11 09:12: 29 Yes 81mg Take 1 tablet by mouth in the morning. [facility] aspirin 81 mg chewable tablet 2023-0 9-11 09:12: 29 Yes 81mg Take 1 tablet by mouth in the morning. [facility] aspirin 81 mg chewable tablet 2023-0 11 09:12: 29 Yes 81mg Take 1 tablet by mouth in the morning. [facility] aspirin 81 mg chewable tablet 2023-0 9-11 09:12: 29 Yes 81mg Take 1 tablet by mouth in the morning. [facility] aspirin 81 mg chewable tablet 2023-0 11 09:12: 29 Yes 81mg Take 1 tablet by mouth in the morning. [facility] aspirin 81 mg chewable tablet 2023-0 9-11 09:12: 29 Yes 81mg Take 1 tablet by mouth in the morning. [facility] aspirin 81 mg chewable tablet 2023-0 9-11 09:12: 29 Yes 81mg Take 1 tablet by mouth in the morning. [facility] aspirin 81 mg chewable tablet 2023-0 9-11 09:12: 29 Yes 81mg Take 1 tablet by mouth in the morning. [facility] aspirin 81 mg chewable tablet 2023-0 9-11 09:12: 29 Yes 81mg Take 1 tablet by mouth in the morning. [facility] aspirin 81 mg chewable tablet 2022-0 04-11 09:12: 29 Yes 81mg Take 1 tablet by mouth in the morning. [facility] aspirin 81 mg chewable tablet 2022-0 04-11 09:12: 29 Yes 81mg Take 1 tablet by mouth in the morning. [facility] aspirin 81 mg chewable tablet 2022-0 04-11 09:12: 29 Yes 81mg Take 1 tablet by mouth in the morning. [facility] TRELEGY ELLIPTA 100-62.5-25 mcg DsDv 2022-0 04-08 00:00: 00 Yes INHALE 1 PUFF BY MOUTH EVERY DAY [facility] TRELEGY ELLIPTA 100-62.5-25 mcg DsDv 2022-0 04-08 00:00: 00 Yes INHALE 1 PUFF BY MOUTH EVERY DAY [facility] TRELEGY ELLIPTA 100-62.5-25 mcg DsDv 2022-0 04-08 00:00: 00 Yes INHALE 1 PUFF BY MOUTH EVERY DAY [facility] TRELEGY ELLIPTA 100-62.5-25 mcg DsDv 2022-0 04-08 00:00: 00 Yes INHALE 1 PUFF BY MOUTH EVERY DAY [facility] TRELEGY ELLIPTA 100-62.5-25 mcg DsDv 2022-0 04-08 00:00: 00 Yes INHALE 1 PUFF BY MOUTH EVERY DAY [facility] TRELEGY ELLIPTA 100-62.5-25 mcg DsDv 2022-0 04-08 00:00: 00 Yes INHALE 1 PUFF BY MOUTH EVERY DAY [facility] TRELEGY ELLIPTA 100-62.5-25 mcg DsDv 3-0 04-08 00:00: 00 Yes INHALE 1 PUFF BY MOUTH EVERY DAY [facility] TRELEGY ELLIPTA 100-62.5-25 mcg DsDv 3-0 04-08 00:00: 00 Yes INHALE 1 PUFF BY MOUTH EVERY DAY [facility] TRELEGY ELLIPTA 100-62.5-25 mcg DsDv 3-0 04-08 00:00: 00 Yes INHALE 1 PUFF BY MOUTH EVERY DAY [facility] TRELEGY ELLIPTA 100-62.5-25 mcg DsDv 3-0 04-08 00:00: 00 Yes INHALE 1 PUFF BY MOUTH EVERY DAY [facility] TRELEGY ELLIPTA 100-62.5-25 mcg DsDv 3-0 04-08 00:00: 00 Yes INHALE 1 PUFF BY MOUTH EVERY DAY [facility] TRELEGY ELLIPTA 100-62.5-25 mcg DsDv 3-0 04-08 00:00: 00 Yes INHALE 1 PUFF BY MOUTH EVERY DAY [facility] TRELEGY ELLIPTA 100-62.5-25 mcg DsDv 3-0 04-08 00:00: 00 Yes INHALE 1 PUFF BY MOUTH EVERY DAY [facility] TRELEGY ELLIPTA 100-62.5-25 mcg DsDv 3-0 04-08 00:00: 00 Yes INHALE 1 PUFF BY MOUTH EVERY DAY [facility] TRELEGY ELLIPTA 100-62.5-25 mcg DsDv 3-0 04-08 00:00: 00 Yes INHALE 1 PUFF BY MOUTH EVERY DAY [facility] TRELEGY ELLIPTA 100-62.5-25 mcg DsDv 3-0 04-08 00:00: 00 Yes INHALE 1 PUFF BY MOUTH EVERY DAY [facility] TRELEGY ELLIPTA 100-62.5-25 mcg DsDv 3-0 04-08 00:00: 00 Yes INHALE 1 PUFF BY MOUTH EVERY DAY [facility] TRELEGY ELLIPTA 100-62.5-25 mcg DsDv 3-0 04-08 00:00: 00 Yes INHALE 1 PUFF BY MOUTH EVERY DAY [facility] aspirin 81 mg chewable tablet 2022-0 04-07 16:51: 35 Yes 81mg Take 1 tablet by mouth in the morning. [facility] aspirin 81 mg chewable tablet 2022-0 04-07 16:51: 35 Yes 81mg Take 1 tablet by mouth in the morning. [facility] aspirin 81 mg chewable tablet 2022-0 04-07 16:51: 35 Yes 81mg Take 1 tablet by mouth in the morning. [facility] aspirin 81 mg chewable tablet 04-07 16:51: 35 Yes 81mg Take 1 tablet by mouth in the morning. [facility] spironolact one (ALDACTONE) tablet 25 mg 04-07 14:00: 00 Yes 25mg 25 mg, Oral, DAILY, First dose on Maribell 04/07/23 at 0900, Until Discontinu ed, Routine [facility] aspirin chewable tablet 81 mg 04-07 14:00: 00 Yes 81mg 81 mg, Oral, DAILY, First dose on Maribell 04/07/23 at 0900, Until Discontinu ed, Routine [facility] enoxaparin (LOVENOX) injection 40 mg 04-07 14:00: 00 Yes 40mg 40 mg, Subcutaneo us, DAILY, First dose on Maribell 04/07/23 at 0900, Until Discontinu ed, Routine [facility] spironolact one (ALDACTONE) tablet 25 mg 04-07 14:00: 00 04-07 23:51 :39 No 25mg 25 mg, Oral, DAILY, First dose on Maribell 04/07/23 at 0900, Until Discontinu ed, Routine [facility] aspirin chewable tablet 81 mg 04-07 14:00: 00 04-07 23:51 :39 No 81mg 81 mg, Oral, DAILY, First dose on Tue04/07/23 at 0900, Until Discontinu ed, Routine [facility] enoxaparin (LOVENOX) injection 40 mg 04-07 14:00: 00 04-07 23:51 :39 No 40mg 40 mg, Subcutaneo us, DAILY, First dose on Tue04/07/23 at 0900, Until Discontinu ed, Routine [facility] magnesium sulfate in water 4 gram/50 mL (8 %) IV Piggyback 4 g 04-07 13:00: 00 04-07 16:01 :00 No 4g 4 g, IV Piggyback, at 25 mL/hr Administer over 120 Minutes, ONCE, 1 dose, On Maribell 04/07/23 at 0800, Routine [facility] magnesium sulfate in water 4 gram/50 mL (8 %) IV Piggyback 4 g 04-07 13:00: 00 04-07 16:01 :00 No 4g 4 g, IV Piggyback, at 25 mL/hr Administer over 120 Minutes, ONCE, 1 dose, On Tue04/07/23 at 0800, Routine [facility] oxyCODONE-a cetaminophe n (PERCOCET) 5-325 mg per tablet 1 tablet 04-07 06:08: 49 Yes 1{tbl} 1 tablet, Oral, Q8HPRN, Starting on Tue04/07/23 at 0108, Until Discontinu ed, Pain (scale 7-10) [facility] oxyCODONE-a cetaminophe n (PERCOCET) 5-325 mg per tablet 1 tablet 04-07 06:08: 49 04-07 23:51 :39 No 1{tbl} 1 tablet, Oral, Q8HPRN, Starting on Tue04/07/23 at 0108, Until Tue04/07/23 at 1851, Pain (scale 7-10) [facility] albuterol (VENTOLIN) inhaler 2 Puff 04-07 06:08: 35 Yes 2{puff} 2 Puff, Inhalation , Q6HPRN, Starting on Tue04/07/23 at 0108, Until Discontinu ed, Routine, Wheezing, Shortness of Breath [facility] albuterol (VENTOLIN) inhaler 2 Puff 04-07 06:08: 35 04-07 23:51 :39 No 2{puff} 2 Puff, Inhalation , Q6HPRN, Starting on Tue04/07/23 at 0108, Until Maribell 04/07/23 at 1851, Routine, Wheezing, Shortness of Breath [facility] acetaminoph en (TYLENOL) tablet 650 mg 04-07 05:14: 48 Yes 650mg 650 mg, Oral, Q6HPRN, Starting on Tue04/07/23 at 0014, Until Discontinu ed, Routine, Pain (scale 1-3) [facility] acetaminoph en (TYLENOL) tablet 650 mg 04-07 05:14: 48 04-07 23:51 :39 No 650mg 650 mg, Oral, Q6HPRN, Starting on Tue04/07/23 at 0014, Until Tue04/07/23 at 1851, Routine, Pain (scale 1-3) [facility] ondansetron (ZOFRAN (PF)) injection 4 mg 04-07 01:42: 18 Yes [id number] 4mg 4 mg, Slow IV Push, PRN, 1 dose, Starting on Tue04/06/23 at 2041, Until Discontinu ed, Routine, Nausea and Vomiting (N/V), IR Post Procedure [facility] FENTanyl PF (SUBLIMAZE (PF)) injection 25 mcg 04-07 01:42: 18 04-07 06:09 :18 No [id number] 25ug 25 mcg, Slow IV Push, Q5MIN PRN, 4 doses, Starting on Tue04/06/23 at 2041, Until Tue04/07/23 at 0109, Routine, Pain (scale 4-6), IR Post Procedure [facility] FENTanyl PF (SUBLIMAZE (PF)) injection 25 mcg 04-07 01:42: 18 04-07 06:09 :18 No [id number] 25ug 25 mcg, Slow IV Push, Q5MIN PRN, 4 doses, Starting on Tue04/06/23 at 2041, Until Tue04/07/23 at 0109, Routine, Pain (scale 4-6), IR Post Procedure [facility] ondansetron (ZOFRAN (PF)) injection 4 mg 04-07 01:42: 18 04-07 23:51 :39 No [id number] 4mg 4 mg, Slow IV Push, PRN, 1 dose, Starting on Tue04/06/23 at 2042, Until Tue04/07/23 at 1851, Routine, Nausea and Vomiting (N/V), IR Post Procedure [facility] aspirin 81 mg chewable tablet 04-07 01:09: 48 Yes 81mg Take 1 tablet by mouth in the morning. [facility] aspirin 81 mg chewable tablet 04-07 01:09: 48 Yes 81mg Take 1 tablet by mouth in the morning. [facility] aspirin 81 mg chewable tablet 04-07 01:09: 48 Yes 81mg Take 1 tablet by mouth in the morning. [facility] gabapentin 300 mg capsule 04-07 01:09: 48 04-07 00:00 :00 No 300mg Take 1 capsule by mouth in the morning and 1 capsule in the evening. [facility] gabapentin 300 mg capsule 04-07 01:09: 48 04-07 00:00 :00 No 300mg Take 1 capsule by mouth in the morning and 1 capsule in the evening. [facility] gabapentin 300 mg capsule 04-07 01:09: 48 04-07 00:00 :00 No 300mg Take 1 capsule by mouth in the morning and 1 capsule in the evening. [facility] gabapentin 300 mg capsule 04-07 01:09: 48 04-07 00:00 :00 No 300mg Take 1 capsule by mouth in the morning and 1 capsule in the evening. [facility] iopamidol (ISOVUE 300-500 mL) injection 260 mL 04-07 00:35: 39 04-07 00:36 :00 No [id number] 260mL 260 mL, Intravenou s, TITRATE - FOR PROCEDURE USE, 1 dose, Starting on Tue04/06/23 at 1935, Until Tue04/06/23 at 1936, Routine, Surgery/Pr ocedure [facility] iopamidol (ISOVUE 300-500 mL) injection 260 mL 04-07 00:35: 39 04-07 00:36 :00 No [id number] 260mL 260 mL, Intravenou s, TITRATE - FOR PROCEDURE USE, 1 dose, Starting on Tue04/06/23 at 1935, Until Tue04/06/23 at 1936, Routine, Surgery/Pr ocedure [facility] yttrium Y-90 resin microsphere s injection 22.3 millicurie 04-06 22:45: 00 04-06 22:45 :00 No [id number] 22.3mCi 22.3 millicurie , Intravenou s, ONCE, 1 dose, On Tue04/06/23 at 1745, Routine [facility] iopamidol (ISOVUE 370-500 mL) injection 70 mL 04-06 15:45: 00 04-06 15:38 :00 No [id number] 70mL 70 mL, Intravenou s, ONCE, 1 dose, On Tue04/06/23 at 1045, Routine [facility] iopamidol (ISOVUE 300-100 mL) injection 100 mL 04-01 19:00: 00 04-01 18:00 :00 No [id number] 100mL 100 mL, Intravenou s, ONCE, 1 dose, On Tue04/01/23 at 1400, Routine [facility] iopamidol (ISOVUE 300-100 mL) injection 100 mL 04-01 19:00: 00 04-01 18:00 :00 No [id number] 100mL 100 mL, Intravenou s, ONCE, 1 dose, On Tue04/01/23 at 1400, Routine [facility] midazolam (VERSED) injection 04-01 17:36: 34 Yes IV Push, PRN, Starting on Tue04/01/23 at 1236, Until Discontinu ed, Routine, Intra-op [facility] midazolam (VERSED) injection 04-01 17:36: 34 04-02 09:12 :49 No IV Push, PRN, Starting on Tue04/01/23 at 1236, Until 04/02/23 at 0412, Routine, Intra-op [facility] tc 99m-albumin (DRAXIMAGE MAA) injection 3.2 millicurie 04-01 17:30: 00 04-01 17:30 :00 No [id number] 3.2mCi 3.2 millicurie , Intravenou s, ONCE, 1 dose, On Tue04/01/23 at 1230, Routine [facility] FENTanyl PF (SUBLIMAZE (PF)) injection 04-01 14:26: 54 Yes Slow IV Push, PRN, Starting on Tue04/01/23 at 0926, Until Discontinu ed, Routine, Intra-op [facility] FENTanyl PF (SUBLIMAZE (PF)) injection 04-01 14:26: 54 04-02 09:12 :49 No Slow IV Push, PRN, Starting on Tue04/01/23 at 0926, Until 04/02/23 at 0412, Routine, Intra-op [facility] ceFAZolin (ANCEF) injection 04-01 14:11: 03 Yes Slow IV Push, PRN, Starting on Tue04/01/23 at 0911, Until Discontinu ed, LARRY, Intra-op [facility] ceFAZolin (ANCEF) injection 04-01 14:11: 03 04-02 09:12 :49 No Slow IV Push, PRN, Starting on Tue04/01/23 at 0911, Until 04/02/23 at 0412, LARRY, Intra-op [facility] mometasone/ formoterol (DULERA INHALE) 02-16 14:12: 23 02-16 00:00 :00 No Inhale. [facility] nicotine 14 mg/24 hr patch 01-20 00:00: 00 Yes USE DIRECTED ONCE DAILY [facility] nicotine 14 mg/24 hr patch 01-20 00:00: 00 Yes USE DIRECTED ONCE DAILY [facility] nicotine 14 mg/24 hr patch 01-20 00:00: 00 Yes USE DIRECTED ONCE DAILY [facility] nicotine 14 mg/24 hr patch 0 01-20 00:00: 00 Yes USE DIRECTED ONCE DAILY [facility] nicotine 14 mg/24 hr patch 0 01-20 00:00: 00 Yes USE DIRECTED ONCE DAILY [facility] nicotine 14 mg/24 hr patch 0 01-20 00:00: 00 Yes USE DIRECTED ONCE DAILY [facility] nicotine 14 mg/24 hr patch 0 01-20 00:00: 00 Yes USE DIRECTED ONCE DAILY [facility] nicotine 14 mg/24 hr patch 0 01-20 00:00: 00 04-07 00:00 :00 No USE DIRECTED ONCE DAILY [facility] nicotine 14 mg/24 hr patch 0 01-20 00:00: 00 04-07 00:00 :00 No USE DIRECTED ONCE DAILY [facility] nicotine 14 mg/24 hr patch 0 01-20 00:00: 00 04-07 00:00 :00 No USE DIRECTED ONCE DAILY [facility] nicotine 14 mg/24 hr patch 01-20 00:00: 00 04-07 00:00 :00 No USE DIRECTED ONCE DAILY [facility] gadobenate dimeglumine (MULTIHANCE -20 mL) injection 0.2 mL/kg 01-19 16:00: 00 01-19 15:46 :00 No [id number] .2mL/kg 0.2 mL/kg, Intravenou s, ONCE, 1 dose, On Tue01/19/23 at 1100, Routine [facility] spironolact one 25 mg tablet 01-03 00:00: 00 Yes [id number] 25mg Take 1 tablet by mouth in the morning. [facility] spironolact one 25 mg tablet 01-03 00:00: 00 Yes [id number] 25mg Take 1 tablet by mouth in the morning. [facility] spironolact one 25 mg tablet 01-03 00:00: 00 Yes [id number] 25mg Take 1 tablet by mouth in the morning. [facility] spironolact one 25 mg tablet 2023-0 605 00:00: 00 Yes [id number] 25mg Take 1 tablet by mouth in the morning. [facility] spironolact one 25 mg tablet 3-0 605 00:00: 00 Yes [id number] 25mg Take 1 tablet by mouth in the morning. [facility] spironolact one 25 mg tablet 3-0 605 00:00: 00 Yes [id number] 25mg Take 1 tablet by mouth in the morning. [facility] spironolact one 25 mg tablet 3-0 605 00:00: 00 Yes [id number] 25mg Take 1 tablet by mouth in the morning. [facility] spironolact one 25 mg tablet 3-0 01-03 00:00: 00 Yes [id number] 25mg Take 1 tablet by mouth in the morning. [facility] spironolact one 25 mg tablet 3-0 01-03 00:00: 00 Yes [id number] 25mg Take 1 tablet by mouth in the morning. [facility] spironolact one 25 mg tablet 3-0 01-03 00:00: 00 Yes [id number] 25mg Take 1 tablet by mouth in the morning. [facility] spironolact one 25 mg tablet 3-0 01-03 00:00: 00 Yes [id number] 25mg Take 1 tablet by mouth in the morning. [facility] spironolact one 25 mg tablet 3-0 05 00:00: 00 Yes [id number] 25mg Take 1 tablet by mouth in the morning. [facility] spironolact one 25 mg tablet 3-0 05 00:00: 00 Yes [id number] 25mg Take 1 tablet by mouth in the morning. [facility] spironolact one 25 mg tablet 3-0 605 00:00: 00 Yes [id number] 25mg Take 1 tablet by mouth in the morning. [facility] spironolact one 25 mg tablet 3-0 605 00:00: 00 Yes [id number] 25mg Take 1 tablet by mouth in the morning. [facility] spironolact one 25 mg tablet 2023-0 605 00:00: 00 Yes [id number] 25mg Take 1 tablet by mouth in the morning. [facility] spironolact one 25 mg tablet 2023-0 605 00:00: 00 Yes [id number] 25mg Take 1 tablet by mouth in the morning. [facility] spironolact one 25 mg tablet 2023-0 605 00:00: 00 Yes [id number] 25mg Take 1 tablet by mouth in the morning. [facility] spironolact one 25 mg tablet 2023-0 605 00:00: 00 Yes [id number] 25mg Take 1 tablet by mouth in the morning. [facility] spironolact one 25 mg tablet 2023-0 6 00:00: 00 Yes [id number] 25mg Take 1 tablet by mouth in the morning. [facility] spironolact one 25 mg tablet 3-0 6 00:00: 00 Yes [id number] 25mg Take 1 tablet by mouth in the morning. [facility] spironolact one 25 mg tablet 3-0 6 00:00: 00 Yes [id number] 25mg Take 1 tablet by mouth in the morning. [facility] spironolact one 25 mg tablet 2023-0 605 00:00: 00 Yes [id number] 25mg Take 1 tablet by mouth in the morning. [facility] spironolact one 25 mg tablet 2023-0 605 00:00: 00 Yes [id number] 25mg Take 1 tablet by mouth in the morning. [facility] spironolact one 25 mg tablet 2023-0 605 00:00: 00 Yes [id number] 25mg Take 1 tablet by mouth in the morning. [facility] spironolact one 25 mg tablet 2023-0 605 00:00: 00 Yes [id number] 25mg Take 1 tablet by mouth in the morning. [facility] spironolact one 25 mg tablet 2023-0 605 00:00: 00 Yes [id number] 25mg Take 1 tablet by mouth in the morning. [facility] spironolact one 25 mg tablet 2022-0 01-03 00:00: 00 Yes [id number] 25mg Take 1 tablet by mouth in the morning. [facility] spironolact one 25 mg tablet 2022-0 01-03 00:00: 00 Yes [id number] 25mg Take 1 tablet by mouth in the morning. [facility] spironolact one 25 mg tablet 2022-0 01-03 00:00: 00 Yes [id number] 25mg Take 1 tablet by mouth in the morning. [facility] spironolact one 25 mg tablet 2022-0 01-03 00:00: 00 Yes [id number] 25mg Take 1 tablet by mouth in the morning. [facility] spironolact one 25 mg tablet 2022-0 01-03 00:00: 00 Yes [id number] 25mg Take 1 tablet by mouth in the morning. [facility] spironolact one 25 mg tablet 2022-0 01-03 00:00: 00 Yes [id number] 25mg Take 1 tablet by mouth in the morning. [facility] spironolact one 25 mg tablet 2022-0 01-03 00:00: 00 Yes [id number] 25mg Take 1 tablet by mouth in the morning. [facility] spironolact one 25 mg tablet 0 01-03 00:00: 00 Yes [id number] 25mg Take 1 tablet by mouth in the morning. [facility] spironolact one 25 mg tablet 2022-0 01-03 00:00: 00 Yes [id number] 25mg Take 1 tablet by mouth in the morning. [facility] spironolact one 25 mg tablet 2022-0 01-03 00:00: 00 Yes [id number] 25mg Take 1 tablet by mouth in the morning. [facility] spironolact one 25 mg tablet 2022-0 01-03 00:00: 00 Yes [id number] 25mg Take 1 tablet by mouth in the morning. [facility] DULERA 100-5 mcg/actuati on inhaler 2022-0 4-28 00:00: 00 Yes INHALE 2 PUFFS TWICE A DAY FOR 30 DAYS [facility] DULERA 100-5 mcg/actuati on inhaler 0 11-26 00:00: 00 Yes INHALE 2 PUFFS TWICE A DAY FOR 30 DAYS [facility] DULERA 100-5 mcg/actuati on inhaler 0 11-26 00:00: 00 Yes INHALE 2 PUFFS TWICE A DAY FOR 30 DAYS [facility] DULERA 100-5 mcg/actuati on inhaler 0 11-26 00:00: 00 Yes INHALE 2 PUFFS TWICE A DAY FOR 30 DAYS [facility] DULERA 100-5 mcg/actuati on inhaler 0 11-26 00:00: 00 Yes INHALE 2 PUFFS TWICE A DAY FOR 30 DAYS [facility] DULERA 100-5 mcg/actuati on inhaler 0 11-26 00:00: 00 Yes INHALE 2 PUFFS TWICE A DAY FOR 30 DAYS [facility] DULERA 100-5 mcg/actuati on inhaler 0 11-26 00:00: 00 Yes INHALE 2 PUFFS TWICE A DAY FOR 30 DAYS [facility] DULERA 100-5 mcg/actuati on inhaler 0 11-26 00:00: 00 04-07 00:00 :00 No INHALE 2 PUFFS TWICE A DAY FOR 30 DAYS [facility] DULERA 100-5 mcg/actuati on inhaler 2022-0 11-26 00:00: 00 04-07 00:00 :00 No INHALE 2 PUFFS TWICE A DAY FOR 30 DAYS [facility] DULERA 100-5 mcg/actuati on inhaler 2022-0 11-26 00:00: 00 04-07 00:00 :00 No INHALE 2 PUFFS TWICE A DAY FOR 30 DAYS [facility] DULERA 100-5 mcg/actuati on inhaler 2022-0 11-26 00:00: 00 04-07 00:00 :00 No INHALE 2 PUFFS TWICE A DAY FOR 30 DAYS [facility] SPIRIVA RESPIMAT 1.25 mcg/actuati on Mist 0 11-25 00:00: 00 Yes 2{puff} Inhale 2 Puffs in the morning. [facility] SPIRIVA RESPIMAT 1.25 mcg/actuati on Mist 0 11-25 00:00: 00 Yes 2{puff} Inhale 2 Puffs in the morning. [facility] SPIRIVA RESPIMAT 1.25 mcg/actuati on Mist 0 11-25 00:00: 00 Yes 2{puff} Inhale 2 Puffs in the morning. [facility] SPIRIVA RESPIMAT 1.25 mcg/actuati on Mist 0 11-25 00:00: 00 Yes 2{puff} Inhale 2 Puffs in the morning. [facility] SPIRIVA RESPIMAT 1.25 mcg/actuati on Mist 2022-0 11-25 00:00: 00 Yes 2{puff} Inhale 2 Puffs in the morning. [facility] SPIRIVA RESPIMAT 1.25 mcg/actuati on Mist 0 11-25 00:00: 00 Yes 2{puff} Inhale 2 Puffs in the morning. [facility] SPIRIVA RESPIMAT 1.25 mcg/actuati on Mist 0 11-25 00:00: 00 Yes 2{puff} Inhale 2 Puffs in the morning. [facility] SPIRIVA RESPIMAT 1.25 mcg/actuati on Mist 0 11-25 00:00: 00 04-07 00:00 :00 No 2{puff} Inhale 2 Puffs in the morning. [facility] SPIRIVA RESPIMAT 1.25 mcg/actuati on Mist 0 11-25 00:00: 00 04-07 00:00 :00 No 2{puff} Inhale 2 Puffs in the morning. [facility] SPIRIVA RESPIMAT 1.25 mcg/actuati on Mist 0 11-25 00:00: 00 04-07 00:00 :00 No 2{puff} Inhale 2 Puffs in the morning. [facility] SPIRIVA RESPIMAT 1.25 mcg/actuati on Mist 4-27 00:00: 00 04-07 00:00 :00 No 2{puff} Inhale 2 Puffs in the morning. [facility] iopamidol (ISOVUE 300-500 mL) injection 300 mL 10-18 17:00: 00 10-18 16:10 :00 No [id number] 300mL 300 mL, Intravenou s, ONCE, 1 dose, On Tue10/18/22 at 1200, Routine [facility] iopamidol (ISOVUE 300-500 mL) injection 300 mL 10-18 17:00: 00 10-18 16:10 :00 No [id number] 300mL 300 mL, Intravenou s, ONCE, 1 dose, On Tue10/18/22 at 1200, Routine [facility] yttrium Y-90 resin microsphere s injection 35.4 millicurie 10-18 15:45: 00 10-18 15:35 :00 No [id number] 35.4mCi 35.4 millicurie , Intravenou s, ONCE, 1 dose, On Tue10/18/22 at 1045, Routine [facility] ondansetron (ZOFRAN (PF)) injection 10-18 15:13: 55 10-18 15:13 :55 No PRN, Starting on Tue10/18/22 at 1013, Until Discontinu ed, Routine, Intra-op [facility] ondansetron (ZOFRAN (PF)) injection 10-18 15:13: 55 10-18 15:13 :55 No PRN, Starting on Tue10/18/22 at 1013, Until Tue10/18/22 at 1013, Routine, Intra-op [facility] FENTanyl PF (SUBLIMAZE (PF)) injection 10-18 14:04: 00 10-18 15:39 :00 No Slow IV Push, PRN, Starting on Tue10/18/22 at 0904, Until Discontinu ed, Routine, Intra-op [facility] midazolam (VERSED) injection 10-18 14:04: 00 10-18 14:21 :00 No IV Push, PRN, Starting on Tue10/18/22 at 0904, Until Discontinu ed, Routine, Intra-op [facility] FENTanyl PF (SUBLIMAZE (PF)) injection 10-18 14:04: 00 10-18 15:39 :00 No Slow IV Push, PRN, Starting on Tue10/18/22 at 0904, Until Tue10/18/22 at 1039, Routine, Intra-op [facility] midazolam (VERSED) injection 10-18 14:04: 00 10-18 14:21 :00 No IV Push, PRN, Starting on Tue10/18/22 at 0904, Until Tue10/18/22 at 0921, Routine, Intra-op [facility] lidocaine 1% (PF) (XYLOCAINE) injection 10-18 13:52: 41 10-18 13:52 :41 No PRN, Starting on Tue10/18/22 at 0852, Until Discontinu ed, Routine, Intra-op [facility] lidocaine 1% (PF) (XYLOCAINE) injection 10-18 13:52: 41 10-18 13:52 :41 No PRN, Starting on Tue10/18/22 at 0852, Until Tue10/18/22 at 0852, Routine, Intra-op [facility] piperacilli n-tazobacta m (ZOSYN) 3.375 g in NaCl 0.9% (NS) 100 mL MINI-BAG 10-18 13:30: 00 10-18 14:17 :00 No [id number] 3.375g 3.375 g, IV Piggyback, ONCE, 1 dose, On Tue10/18/22 at 0830, Administer over 30 Minutes, 100 mL
Reas on for Anti-Infec tive: Surgical Prophylaxi s
Surgi reynaldo Prophylaxi s: Abdominal< br>Duratio n of therapy: within 24 hours of surgery [facility] piperacilli n-tazobacta m (ZOSYN) 3.375 g in NaCl 0.9% (NS) 100 mL MINI-BAG 10-18 13:30: 00 10-18 14:17 :00 No [id number] 3.375g 3.375 g, IV Piggyback, ONCE, 1 dose, On Tue10/18/22 at 0830, Administer over 30 Minutes, 100 mL
Reas on for Anti-Infec tive: Surgical Prophylaxi s
Surgi reynaldo Prophylaxi s: Abdominal< br>Duratio n of therapy: within 24 hours of surgery [facility] iopamidol (ISOVUE 300-500 mL) injection 350 mL 10-08 23:15: 00 10-08 22:25 :00 No [id number] 350mL 350 mL, Intravenou s, ONCE, 1 dose, On Tue10/08/22 at 1715, Routine [facility] iopamidol (ISOVUE 300-500 mL) injection 350 mL 10-08 23:15: 00 10-08 22:25 :00 No [id number] 350mL 350 mL, Intravenou s, ONCE, 1 dose, On Tue10/08/22 at 1715, Routine [facility] tc 99m-albumin (DRAXIMAGE MAA) injection 3.1 millicurie 10-08 17:00: 00 10-08 17:00 :00 No [id number] 3.1mCi 3.1 millicurie , Intravenou s, ONCE, 1 dose, On Tue10/08/22 at 1100, Routine [facility] FENTanyl PF (SUBLIMAZE (PF)) injection 10-08 14:52: 56 10-08 14:52 :56 No Slow IV Push, PRN, Starting on Tue10/08/22 at 0852, Until Tue10/08/22 at 0852, Routine, Intra-op [facility] FENTanyl PF (SUBLIMAZE (PF)) injection 2022-0 310 14:52: 56 10-08 14:52 :56 No Slow IV Push, PRN, Starting on Tue10/08/22 at 0852, Until Tue10/08/22 at 0852, Routine, Intra-op [facility] midazolam (VERSED) injection 2022-0 3-10 14:51: 41 10-08 14:51 :41 No IV Push, PRN, Starting on Tue10/08/22 at 0851, Until Tue10/08/22 at 0851, Routine, Intra-op [facility] midazolam (VERSED) injection 2022-0 3- 14:51: 41 10-08 14:51 :41 No IV Push, PRN, Starting on Tue10/08/22 at 0851, Until Tue10/08/22 at 0851, Routine, Intra-op [facility] spironolact one 100 mg tablet 2022-0 10-04 10:32: 06 10-04 00:00 :00 No 100mg Take 100 mg by mouth in the morning. [facility] spironolact one 100 mg tablet 2022-0 10-04 10:32: 10-04 00:00 :00 No 100mg Take 100 mg by mouth in the morning. [facility] spironolact one 25 mg tablet 2022-0 10-04 00:00: 00 Yes 25mg Take 1 tablet by mouth in the morning. [facility] spironolact one 25 mg tablet 3-0 10-04 00:00: 00 Yes 25mg Take 1 tablet by mouth in the morning. [facility] spironolact one 25 mg tablet 3-0 10-04 00:00: 00 Yes 25mg Take 1 tablet by mouth in the morning. [facility] spironolact one 25 mg tablet 3-0 10-04 00:00: 00 Yes 25mg Take 1 tablet by mouth in the morning. [facility] spironolact one 25 mg tablet 3-0 10-04 00:00: 00 Yes 25mg Take 1 tablet by mouth in the morning. [facility] spironolact one 25 mg tablet 3-0 3- 00:00: 00 Yes 25mg Take 1 tablet by mouth in the morning. [facility] spironolact one 25 mg tablet 2022-0 3 00:00: 00 Yes 25mg Take 1 tablet by mouth in the morning. [facility] spironolact one 25 mg tablet 2022-0 3- 00:00: 00 Yes 25mg Take 1 tablet by mouth in the morning. [facility] spironolact one 25 mg tablet 3-0 3 00:00: 00 Yes 25mg Take 1 tablet by mouth in the morning. [facility] spironolact one 25 mg tablet 2022-0 3 00:00: 00 Yes 25mg Take 1 tablet by mouth in the morning. [facility] spironolact one 25 mg tablet 2022-0 3 00:00: 00 Yes 25mg Take 1 tablet by mouth in the morning. [facility] spironolact one 25 mg tablet 2022-0 3 00:00: 00 Yes 25mg Take 1 tablet by mouth in the morning. [facility] spironolact one 25 mg tablet 2022-0 10-04 00:00: 00 Yes 25mg Take 1 tablet by mouth in the morning. [facility] spironolact one 25 mg tablet 2022-0 10-04 00:00: 00 Yes 25mg Take 1 tablet by mouth in the morning. [facility] spironolact one 25 mg tablet 3-0 10-04 00:00: 00 01-03 00:00 :00 No 25mg Take 1 tablet by mouth in the morning. [facility] spironolact one 25 mg tablet 3-0 10-04 00:00: 00 01-03 00:00 :00 No 25mg Take 1 tablet by mouth in the morning. [facility] tc 99m-medrona te (DRAXIMAGE MDP-25) injection 26.1 millicurie 08-25 16:30: 00 08-25 16:17 :00 No [id number] 26.1mCi 26.1 millicurie , Intravenou s, ONCE, 1 dose, On Tue08/25/22 at 1030, Routine [facility] gadobenate dimeglumine (MULTIHANCE -15 mL) injection 0.2 mL/kg 08-25 16:15: 00 08-25 16:06 :00 No [id number] .2mL/kg 0.2 mL/kg, Intravenou s, ONCE, 1 dose, On Tue08/25/22 at 1015, Routine [facility] aspirin 81 mg chewable tablet 2021-08 09:48: 25 Yes 81mg Take 81 mg by mouth daily. [facility] aspirin 81 mg chewable tablet 2021-08 09:48: 25 Yes 81mg Take 81 mg by mouth daily. [facility] aspirin 81 mg chewable tablet 2021-08 09:48: 25 Yes 81mg Take 81 mg by mouth daily. [facility] aspirin 81 mg chewable tablet 2021-08 09:48: 25 Yes 81mg Take 81 mg by mouth daily. [facility] aspirin 81 mg chewable tablet 2021-08 09:48: 25 Yes 81mg Take 81 mg by mouth daily. [facility] spironolact one 100 mg tablet 2021-08 09:48: 25 Yes 100mg Take 100 mg by mouth in the morning. [facility] aspirin 81 mg chewable tablet 2021-08 09:48: 25 Yes 81mg Take 81 mg by mouth daily. [facility] spironolact one 100 mg tablet 2021-08 09:48: 25 Yes 100mg Take 100 mg by mouth in the morning. [facility] aspirin 81 mg chewable tablet 2021-08 09:48: 25 Yes 81mg Take 81 mg by mouth daily. [facility] spironolact one 100 mg tablet 2021-08 09:48: 25 Yes 100mg Take 100 mg by mouth in the morning. [facility] aspirin 81 mg chewable tablet 2021-1 09-08 09:48: 25 Yes 81mg Take 81 mg by mouth daily. [facility] spironolact one 100 mg tablet 2021-09-08 09:48: 25 Yes 100mg Take 100 mg by mouth in the morning. [facility] aspirin 81 mg chewable tablet 2021-09-08 09:48: 25 Yes 81mg Take 81 mg by mouth daily. [facility] spironolact one 100 mg tablet 2021-1 09-08 09:48: 25 Yes 100mg Take 100 mg by mouth in the morning. [facility] aspirin 81 mg chewable tablet 2021-09-08 09:48: 25 Yes 81mg Take 81 mg by mouth daily. [facility] spironolact one 100 mg tablet 2021-09-08 09:48: 25 Yes 100mg Take 100 mg by mouth in the morning. [facility] aspirin 81 mg chewable tablet 2021-09-08 09:48: 25 Yes 81mg Take 81 mg by mouth daily. [facility] spironolact one 100 mg tablet 2021-09-08 09:48: 25 Yes 100mg Take 100 mg by mouth in the morning. [facility] aspirin 81 mg chewable tablet 2021-09-08 09:48: 25 Yes 81mg Take 81 mg by mouth daily. [facility] spironolact one 100 mg tablet 2021-09-08 09:48: 25 Yes 100mg Take 100 mg by mouth in the morning. [facility] aspirin 81 mg chewable tablet 2021-1 09-08 09:48: 25 Yes 81mg Take 81 mg by mouth daily. [facility] spironolact one 100 mg tablet 2021-1 09-08 09:48: 25 Yes 100mg Take 100 mg by mouth in the morning. [facility] aspirin 81 mg chewable tablet 2021-1 09-08 09:48: 25 Yes 81mg Take 81 mg by mouth daily. [facility] spironolact one 100 mg tablet 2021-09-08 09:48: 25 Yes 100mg Take 100 mg by mouth in the morning. [facility] aspirin 81 mg chewable tablet 2021-09-08 09:48: 25 Yes 81mg Take 81 mg by mouth daily. [facility] spironolact one 100 mg tablet 2021-09-08 09:48: 25 Yes 100mg Take 100 mg by mouth in the morning. [facility] aspirin 81 mg chewable tablet 2021-08 09:48: 25 Yes 81mg Take 81 mg by mouth daily. [facility] spironolact one 100 mg tablet 2021-1 09-08 09:48: 25 Yes 100mg Take 100 mg by mouth in the morning. [facility] aspirin 81 mg chewable tablet 2021-08 09:48: 25 Yes 81mg Take 81 mg by mouth daily. [facility] spironolact one 100 mg tablet 2021-08 09:48: 25 Yes 100mg Take 100 mg by mouth in the morning. [facility] aspirin 81 mg chewable tablet 2021-08 09:48: 25 Yes 81mg Take 81 mg by mouth daily. [facility] spironolact one 100 mg tablet 2021-08 09:48: 25 Yes 100mg Take 100 mg by mouth in the morning. [facility] aspirin 81 mg chewable tablet 2021-08 09:48: 25 Yes 81mg Take 81 mg by mouth daily. [facility] spironolact one 100 mg tablet 2021-08 09:48: 25 Yes 100mg Take 100 mg by mouth in the morning. [facility] aspirin 81 mg chewable tablet 2021-1 09-08 09:48: 25 Yes 81mg Take 81 mg by mouth daily. [facility] spironolact one 100 mg tablet 2021-09-08 09:48: 25 Yes 100mg Take 100 mg by mouth in the morning. [facility] aspirin 81 mg chewable tablet 2021-1 09-08 09:48: 25 Yes 81mg Take 81 mg by mouth daily. [facility] spironolact one 100 mg tablet 2021-08 09:48: 25 Yes 100mg Take 100 mg by mouth in the morning. [facility] aspirin 81 mg chewable tablet 2021-08 09:48: 25 Yes 81mg Take 81 mg by mouth daily. [facility] spironolact one 100 mg tablet 2021-08 09:48: 25 Yes 100mg Take 100 mg by mouth in the morning. [facility] aspirin 81 mg chewable tablet 2021-08 09:48: 25 Yes 81mg Take 81 mg by mouth daily. [facility] spironolact one 100 mg tablet 2021-08 09:48: 25 Yes 100mg Take 100 mg by mouth in the morning. [facility] aspirin 81 mg chewable tablet 2021-08 09:48: 25 Yes 81mg Take 81 mg by mouth daily. [facility] aspirin 81 mg chewable tablet 2021-08 09:48: 25 Yes 81mg Take 81 mg by mouth daily. [facility] aspirin 81 mg chewable tablet 2021-08 09:48: 25 Yes 81mg Take 81 mg by mouth daily. [facility] aspirin 81 mg chewable tablet 2021-08 09:48: 25 Yes 81mg Take 81 mg by mouth daily. [facility] aspirin 81 mg chewable tablet 2021-08 09:48: 25 Yes 81mg Take 81 mg by mouth daily. [facility] aspirin 81 mg chewable tablet 2021-08 09:48: 25 Yes 81mg Take 81 mg by mouth daily. [facility] aspirin 81 mg chewable tablet 2021-09-08 09:48: 25 Yes 81mg Take 81 mg by mouth daily. [facility] aspirin 81 mg chewable tablet 2021-08 09:48: 25 Yes 81mg Take 81 mg by mouth daily. [facility] aspirin 81 mg chewable tablet 2021-09-08 09:48: 25 Yes 81mg Take 81 mg by mouth daily. [facility] aspirin 81 mg chewable tablet 2021-08 09:48: 25 Yes 81mg Take 81 mg by mouth daily. [facility] ity [facility] aspirin 81 mg chewable tablet 2021-08 09:48: 25 Yes 81mg Take 81 mg by mouth daily. [facility] it[facility] aspirin 81 mg chewable tablet 2021-08 09:48: 25 Yes 81mg Take 81 mg by mouth daily. [facility] ity [facility] aspirin 81 mg chewable tablet 2021-09-08 09:48: 25 Yes 81mg Take 81 mg by mouth daily. [facility] it[facility] aspirin 81 mg chewable tablet 2021-09-08 09:48: 25 Yes 81mg Take 81 mg by mouth daily. [facility] it[facility] aspirin 81 mg chewable tablet 2021-08 09:48: 25 Yes 81mg Take 81 mg by mouth daily. [facility] 2021-08 09:48: 25 Yes 81mg Take 81 mg by mouth daily. [facility] aspirin 81 mg chewable tablet 2021-08 09:48: 25 Yes 81mg Take 81 mg by mouth daily. [facility] aspirin 81 mg chewable tablet 2021-08 09:48: 25 Yes 81mg Take 81 mg by mouth daily. [facility] aspirin 81 mg chewable tablet 2021-08 09:48: 25 Yes 81mg Take 81 mg by mouth daily. [facility] 2021-08 09:48: 25 Yes 81mg Take 81 mg by mouth daily. [facility] 2021-09-08 09:48: 25 Yes 81mg Take 81 mg by mouth daily. [facility] aspirin 81 mg chewable tablet 2021-08 09:48: 25 Yes 81mg Take 81 mg by mouth daily. [facility] 2021-09-08 09:48: 25 Yes 81mg Take 81 mg by mouth daily. [facility] mg [facility]able tablet 2021-08 09:48: 25 Yes 81mg Take 81 mg by mouth daily. [facility] TAKE 1 TABLET BY MOUTH ONCE DAILY 2021-08 00:00: 00 No aspirin 81 mg chewable tablet 2021-08 020 11:22: 41 Yes 81mg Take 81 mg by mouth daily. [facility] spironolact one 100 mg tablet 2021-08 0-20 11:22: 41 Yes 100mg Take 100 mg by mouth in the morning. [facility] aspirin 81 mg chewable tablet 2021-08 0-20 11:22: 41 Yes 81mg Take 81 mg by mouth daily. [facility] spironolact one 100 mg tablet 2021-0820 11:22: 41 Yes 100mg Take 100 mg by mouth in the morning. [facility] aspirin 81 mg chewable tablet 2021-08 020 11:22: 41 Yes 81mg Take 81 mg by mouth daily. [facility] spironolact one 100 mg tablet 2021-08 0-20 11:22: 41 Yes 100mg Take 100 mg by mouth in the morning. [facility] aspirin 81 mg chewable tablet 2021-08 020 11:22: 41 Yes 81mg Take 81 mg by mouth daily. [facility] spironolact one 100 mg tablet 2021-08 020 11:22: 41 Yes 100mg Take 100 mg by mouth in the morning. [facility] aspirin 81 mg chewable tablet 2021-08 020 11:22: 41 Yes 81mg Take 81 mg by mouth daily. [facility] spironolact one 100 mg tablet 2021-08 0-20 11:22: 41 Yes 100mg Take 100 mg by mouth in the morning. [facility] aspirin 81 mg chewable tablet 2021-08 0-20 11:22: 41 Yes 81mg Take 81 mg by mouth daily. [facility] spironolact one 100 mg tablet 2021-08 0-20 11:22: 41 Yes 100mg Take 100 mg by mouth in the morning. [facility] aspirin 81 mg chewable tablet 2021-08 11:22: 41 Yes 81mg Take 81 mg by mouth daily. [facility] spironolact one 100 mg tablet 2021-08 11:22: 41 Yes 100mg Take 100 mg by mouth in the morning. [facility] gabapentin 300 mg capsule 2021-08 11:21: 07 Yes 300mg Take 300 mg by mouth 2 (two) times daily. [facility] gabapentin 300 mg capsule 2021-08 11:21: 07 Yes 300mg Take 300 mg by mouth 2 (two) times daily. [facility] gabapentin 300 mg capsule 2021-08 11:21: 07 Yes 300mg Take 300 mg by mouth 2 (two) times daily. [facility] gabapentin 300 mg capsule 2021-08 11:21: 07 Yes 300mg Take 300 mg by mouth 2 (two) times daily. [facility] gabapentin 300 mg capsule 2021-08 11:21: 07 Yes 300mg Take 300 mg by mouth 2 (two) times daily. [facility] gabapentin 300 mg capsule 2021-08 11:21: 07 Yes 300mg Take 300 mg by mouth 2 (two) times daily. [facility] gabapentin 300 mg capsule 2021-08 11:21: 07 Yes 300mg Take 300 mg by mouth 2 (two) times daily. [facility] gabapentin 300 mg capsule 2021-08 11:21: 07 Yes 300mg Take 300 mg by mouth 2 (two) times daily. [facility] gabapentin 300 mg capsule 2021-08 11:21: 07 Yes 300mg Take 300 mg by mouth 2 (two) times daily. [facility] gabapentin 300 mg capsule 2021-08 11:21: 07 Yes 300mg Take 300 mg by mouth 2 (two) times daily. [facility] gabapentin 300 mg capsule 2021-08 11:21: 07 Yes 300mg Take 300 mg by mouth 2 (two) times daily. [facility] gabapentin 300 mg capsule 2021-08 11:21: 07 Yes 300mg Take 300 mg by mouth 2 (two) times daily. [facility] gabapentin 300 mg capsule 2021- 11:21: 07 Yes 300mg Take 300 mg by mouth 2 (two) times daily. [facility] gabapentin 300 mg capsule 2021- 11:21: 07 Yes 300mg Take 300 mg by mouth 2 (two) times daily. [facility] gabapentin 300 mg capsule 2021- 11:21: 07 Yes 300mg Take 300 mg by mouth 2 (two) times daily. [facility] gabapentin 300 mg capsule 2021- 11:21: 07 Yes 300mg Take 300 mg by mouth 2 (two) times daily. [facility] gabapentin 300 mg capsule 2021-08 11:21: 07 Yes 300mg Take 300 mg by mouth 2 (two) times daily. [facility] gabapentin 300 mg capsule 2021-08 11:21: 07 Yes 300mg Take 300 mg by mouth 2 (two) times daily. [facility] gabapentin 300 mg capsule 2021-08 11:21: 07 Yes 300mg Take 300 mg by mouth 2 (two) times daily. [facility] gabapentin 300 mg capsule 2021-08 11:21: 07 Yes 300mg Take 300 mg by mouth 2 (two) times daily. [facility] gabapentin 300 mg capsule 2021- 11:21: 07 Yes 300mg Take 300 mg by mouth 2 (two) times daily. [facility] gabapentin 300 mg capsule 2021- 11:21: 07 Yes 300mg Take 300 mg by mouth 2 (two) times daily. [facility] gabapentin 300 mg capsule 2021- 11:21: 07 Yes 300mg Take 300 mg by mouth 2 (two) times daily. [facility] gabapentin 300 mg capsule 2021- 11:21: 07 Yes 300mg Take 300 mg by mouth 2 (two) times daily. [facility] gabapentin 300 mg capsule 2021- 11:21: 07 Yes 300mg Take 300 mg by mouth 2 (two) times daily. [facility] gabapentin 300 mg capsule 2021- 0 11:21: 07 Yes 300mg Take 300 mg by mouth 2 (two) times daily. [facility] 2021-0820 11:21: 07 Yes 300mg Take 300 mg by mouth 2 (two) times daily. [facility] gabapentin 300 mg capsule 2021-08 11:21: 07 Yes 300mg Take 300 mg by mouth 2 (two) times daily. [facility] 2021-08 11:21: 07 Yes 300mg Take 300 mg by mouth 2 (two) times daily. [facility] gabapentin 300 mg capsule 2021-08 11:21: 07 Yes 300mg Take 300 mg by mouth 2 (two) times daily. [facility] gabapentin 300 mg capsule 2021-08 11:21: 07 Yes 300mg Take 300 mg by mouth 2 (two) times daily. [facility] gabapentin 300 mg capsule 2021-08 11:21: 07 Yes 300mg Take 300 mg by mouth 2 (two) times daily. [facility] gabapentin 300 mg capsule 2021-08 11:21: 07 Yes 300mg Take 300 mg by mouth 2 (two) times daily. [facility] gabapentin 300 mg capsule 2021- 11:21: 07 Yes 300mg Take 300 mg by mouth 2 (two) times daily. [facility] gabapentin 300 mg capsule 2021- 11:21: 07 Yes 300mg Take 300 mg by mouth 2 (two) times daily. [facility] gabapentin 300 mg capsule 2021- 11:21: 07 Yes 300mg Take 300 mg by mouth 2 (two) times daily. [facility] gabapentin 300 mg capsule 2021- 11:21: 07 Yes 300mg Take 300 mg by mouth 2 (two) times daily. [facility] gabapentin 300 mg capsule 2021- 11:21: 07 Yes 300mg Take 300 mg by mouth 2 (two) times daily. [facility] 2021- 0-20 11:21: 07 Yes 300mg Take 300 mg by mouth 2 (two) times daily. [facility] gabapentin 300 mg capsule 2021- 020 11:21: 07 Yes 300mg Take 300 mg by mouth 2 (two) times daily. [facility] 2021- 020 11:21: 07 Yes 300mg Take 300 mg by mouth 2 (two) times daily. [facility] gabapentin 300 mg capsule 2021-20 11:21: 07 Yes 300mg Take 300 mg by mouth 2 (two) times daily. [facility] gabapentin 300 mg capsule 2021- 11:21: 07 Yes 300mg Take 300 mg by mouth 2 (two) times daily. [facility] gabapentin 300 mg capsule 2021- 11:21: 07 Yes 300mg Take 300 mg by mouth 2 (two) times daily. [facility] gabapentin 300 mg capsule 2021- 11:21: 07 Yes 300mg Take 300 mg by mouth 2 (two) times daily. [facility] gabapentin 300 mg capsule 2021- 11:21: 07 Yes 300mg Take 300 mg by mouth 2 (two) times daily. [facility] gabapentin 300 mg capsule 2021- 11:21: 07 Yes 300mg Take 300 mg by mouth 2 (two) times daily. [facility] gabapentin 300 mg capsule 2021- 020 11:21: 07 Yes 300mg Take 300 mg by mouth 2 (two) times daily. [facility] gabapentin 300 mg capsule 2021- 020 11:21: 07 Yes 300mg Take 300 mg by mouth 2 (two) times daily. [facility] gabapentin 300 mg capsule 2021-20 11:21: 07 Yes 300mg Take 300 mg by mouth 2 (two) times daily. [facility] gabapentin 300 mg capsule 2021- 020 11:21: 07 Yes 300mg Take 300 mg by mouth 2 (two) times daily. [facility] gabapentin 300 mg capsule 2021-08 0-20 11:21: 07 Yes 300mg Take 300 mg by mouth 2 (two) times daily. [facility] gabapentin 300 mg capsule 2021-08 020 11:21: 07 Yes 300mg Take 300 mg by mouth 2 (two) times daily. [facility] gabapentin 300 mg capsule 2021-08 0-20 11:21: 07 Yes 300mg Take 300 mg by mouth 2 (two) times daily. [facility] mometasone/ formoterol (DULERA INHALE) 2021-08 0-20 11:19: 44 Yes Inhale. [facility] mometasone/ formoterol (DULERA INHALE) 2021-08 0 11:19: 44 Yes Inhale. [facility] mometasone/ formoterol (DULERA INHALE) 2021-08 0 11:19: 44 Yes Inhale. [facility] mometasone/ formoterol (DULERA INHALE) 2021-08 0- 11:19: 44 Yes Inhale. [facility] mometasone/ formoterol (DULERA INHALE) 2021-08 0- 11:19: 44 Yes Inhale. [facility] mometasone/ formoterol (DULERA INHALE) 2021-08 0-20 11:19: 44 Yes Inhale. [facility] mometasone/ formoterol (DULERA INHALE) 2021-08 0-20 11:19: 44 Yes Inhale. [facility] mometasone/ formoterol (DULERA INHALE) 2021-08 0-20 11:19: 44 Yes Inhale. [facility] mometasone/ formoterol (DULERA INHALE) 2021-08 0-20 11:19: 44 Yes Inhale. [facility] mometasone/ formoterol (DULERA INHALE) 2021-08 0-20 11:19: 44 Yes Inhale. [facility] mometasone/ formoterol (DULERA INHALE) 2021-08 0-20 11:19: 44 Yes Inhale. [facility] it[facility] mometasone/ formoterol (DULERA INHALE) 2021-08 0-20 11:19: 44 Yes Inhale. [facility] it[facility] mometasone/ formoterol (DULERA INHALE) 2021-08 0-20 11:19: 44 Yes Inhale. [facility] it[facility] mometasone/ formoterol (DULERA INHALE) 2021-08 0-20 11:19: 44 Yes Inhale. [facility] it[facility] mometasone/ formoterol (DULERA INHALE) 2021-08 0-20 11:19: 44 Yes Inhale. [facility] it[facility] mometasone/ formoterol (DULERA INHALE) 2021-08 0-20 11:19: 44 Yes Inhale. [facility] it[facility] mometasone/ formoterol (DULERA INHALE) 2021-08 0-20 11:19: 44 Yes Inhale. [facility] mometasone/ formoterol (DULERA INHALE) 2021-08 0-20 11:19: 44 Yes Inhale. [facility] it[facility] mometasone/ formoterol (DULERA INHALE) 2021-08 0-20 11:19: 44 Yes Inhale. [facility] it[facility] mometasone/ formoterol (DULERA INHALE) 2021-08 0-20 11:19: 44 Yes Inhale. [facility] it[facility] mometasone/ formoterol (DULERA INHALE) 2021-08 0-20 11:19: 44 Yes Inhale. [facility] mometasone/ formoterol (DULERA INHALE) 2021-08 0-20 11:19: 44 Yes Inhale. [facility] mometasone/ formoterol (DULERA INHALE) 2021-08 0-20 11:19: 44 Yes Inhale. [facility] it[facility] mometasone/ formoterol (DULERA INHALE) 2021-08 0-20 11:19: 44 Yes Inhale. [facility] it[facility] mometasone/ formoterol (DULERA INHALE) 2021-08 0-20 11:19: 44 Yes Inhale. [facility] mometasone/ formoterol (DULERA INHALE) 2021-08 0-20 11:19: 44 Yes Inhale. [facility] mometasone/ formoterol (DULERA INHALE) 2021-08 0-20 11:19: 44 Yes Inhale. [facility] it[facility] mometasone/ formoterol (DULERA INHALE) 2021-08 0-20 11:19: 44 Yes Inhale. [facility] it[facility] mometasone/ formoterol (DULERA INHALE) 2021-08 0- 11:19: 44 Yes Inhale. [facility] mometasone/ formoterol (DULERA INHALE) 2021-08 0- 11:19: 44 Yes Inhale. [facility] mometasone/ formoterol (DULERA INHALE) 2021-08 0-20 11:19: 44 Yes Inhale. [facility] mometasone/ formoterol (DULERA INHALE) 2021-08 0-20 11:19: 44 Yes Inhale. [facility] mometasone/ formoterol (DULERA INHALE) 2021-08 0-20 11:19: 44 Yes Inhale. [facility] mometasone/ formoterol (DULERA INHALE) 2021-08 0-20 11:19: 44 Yes Inhale. [facility] mometasone/ formoterol (DULERA INHALE) 2021-08 0-20 11:19: 44 Yes Inhale. [facility] mometasone/ formoterol (DULERA INHALE) 2021-08 0-20 11:19: 44 Yes Inhale. [facility] mometasone/ formoterol (DULERA INHALE) 2021-08 0-20 11:19: 44 Yes Inhale. [facility] mometasone/ formoterol (DULERA INHALE) 2021-08 0-20 11:19: 44 Yes Inhale. [facility] mometasone/ formoterol (DULERA INHALE) 2021-08 0-20 11:19: 44 Yes Inhale. [facility] mometasone/ formoterol (DULERA INHALE) 2021-08 0-20 11:19: 44 Yes Inhale. [facility] mometasone/ formoterol (DULERA INHALE) 2021-08 0-20 11:19: 44 Yes Inhale. [facility] mometasone/ formoterol (DULERA INHALE) 2021-08 0- 11:19: 44 Yes Inhale. [facility] mometasone/ formoterol (DULERA INHALE) 2021-08 0-20 11:19: 44 Yes Inhale. [facility] mometasone/ formoterol (DULERA INHALE) 2021-08 0- 11:19: 44 Yes Inhale. [facility] mometasone/ formoterol (DULERA INHALE) 2021-08 0-20 11:19: 44 Yes Inhale. [facility] mometasone/ formoterol (DULERA INHALE) 2021-08 0-20 11:19: 44 Yes Inhale. [facility] mometasone/ formoterol (DULERA INHALE) 2021-08 0-20 11:19: 44 Yes Inhale. [facility] oxyCODONE-a cetaminophe n 7.5-325 mg per tablet 2021-08 0-05 00:00: 00 Yes 1{tbl} Take 1 tablet by mouth in the morning and 1 tablet in the evening. [facility] oxyCODONE-a cetaminophe n 7.5-325 mg per tablet 2021-08 0-05 00:00: 00 Yes 1{tbl} Take 1 tablet by mouth in the morning and 1 tablet in the evening. [facility] oxyCODONE-a cetaminophe n 7.5-325 mg per tablet 2021-08 0-05 00:00: 00 Yes 1{tbl} Take 1 tablet by mouth in the morning and 1 tablet in the evening. [facility] oxyCODONE-a cetaminophe n 7.5-325 mg per tablet 2021-08 0 00:00: 00 Yes 1{tbl} Take 1 tablet by mouth in the morning and 1 tablet in the evening. [facility] oxyCODONE-a cetaminophe n 7.5-325 mg per tablet 2021-08 0 00:00: 00 Yes 1{tbl} Take 1 tablet by mouth every 8 (eight) hours as needed. [facility] oxyCODONE-a cetaminophe n 7.5-325 mg per tablet 2021-08 00:00: 00 Yes 1{tbl} Take 1 tablet by mouth every 8 (eight) hours as needed. [facility] oxyCODONE-a cetaminophe n 7.5-325 mg per tablet 2021-08 00:00: 00 Yes 1{tbl} Take 1 tablet by mouth every 8 (eight) hours as needed. [facility] oxyCODONE-a cetaminophe n 7.5-325 mg per tablet 2021-08 00:00: 00 Yes 1{tbl} Take 1 tablet by mouth every 8 (eight) hours as needed. [facility] oxyCODONE-a cetaminophe n 7.5-325 mg per tablet 2021-08 0 00:00: 00 Yes 1{tbl} Take 1 tablet by mouth every 8 (eight) hours as needed. [facility] oxyCODONE-a cetaminophe n 7.5-325 mg per tablet 2021-08 0 00:00: 00 Yes 1{tbl} Take 1 tablet by mouth every 8 (eight) hours as needed. [facility] oxyCODONE-a cetaminophe n 7.5-325 mg per tablet 2021-08 0 00:00: 00 Yes 1{tbl} Take 1 tablet by mouth every 8 (eight) hours as needed. [facility] oxyCODONE-a cetaminophe n 7.5-325 mg per tablet 2021-08 005 00:00: 00 Yes 1{tbl} Take 1 tablet by mouth every 8 (eight) hours as needed. [facility] oxyCODONE-a cetaminophe n 7.5-325 mg per tablet 2021-08 005 00:00: 00 Yes 1{tbl} Take 1 tablet by mouth every 8 (eight) hours as needed. [facility] oxyCODONE-a cetaminophe n 7.5-325 mg per tablet 2021-08 0 00:00: 00 Yes 1{tbl} Take 1 tablet by mouth every 8 (eight) hours as needed. [facility] oxyCODONE-a cetaminophe n 7.5-325 mg per tablet 2021-08 0 00:00: 00 Yes 1{tbl} Take 1 tablet by mouth every 8 (eight) hours as needed. [facility] oxyCODONE-a cetaminophe n 7.5-325 mg per tablet 2021-08 0 00:00: 00 Yes 1{tbl} Take 1 tablet by mouth every 8 (eight) hours as needed. [facility] oxyCODONE-a cetaminophe n 7.5-325 mg per tablet 2021-08 0 00:00: 00 Yes 1{tbl} Take 1 tablet by mouth every 8 (eight) hours as needed. [facility] oxyCODONE-a cetaminophe n 7.5-325 mg per tablet 2021-08 005 00:00: 00 Yes 1{tbl} Take 1 tablet by mouth every 8 (eight) hours as needed. [facility] oxyCODONE-a cetaminophe n 7.5-325 mg per tablet 2021-08 005 00:00: 00 Yes 1{tbl} Take 1 tablet by mouth every 8 (eight) hours as needed. [facility] oxyCODONE-a cetaminophe n 7.5-325 mg per tablet 2021-08 0-05 00:00: 00 Yes 1{tbl} Take 1 tablet by mouth every 8 (eight) hours as needed. [facility] oxyCODONE-a cetaminophe n 7.5-325 mg per tablet 2021-08 0 00:00: 00 Yes 1{tbl} Take 1 tablet by mouth every 8 (eight) hours as needed. [facility] oxyCODONE-a cetaminophe n 7.5-325 mg per tablet 2021-08 0 00:00: 00 Yes 1{tbl} Take 1 tablet by mouth every 8 (eight) hours as needed. [facility] oxyCODONE-a cetaminophe n 7.5-325 mg per tablet 2021-08 0 00:00: 00 Yes 1{tbl} Take 1 tablet by mouth every 8 (eight) hours as needed. [facility] oxyCODONE-a cetaminophe n 7.5-325 mg per tablet 2021-08 0 00:00: 00 Yes 1{tbl} Take 1 tablet by mouth every 8 (eight) hours as needed. [facility] oxyCODONE-a cetaminophe n 7.5-325 mg per tablet 2021-08 0 00:00: 00 Yes 1{tbl} Take 1 tablet by mouth every 8 (eight) hours as needed. [facility] oxyCODONE-a cetaminophe n 7.5-325 mg per tablet 2021-08 0 00:00: 00 Yes 1{tbl} Take 1 tablet by mouth every 8 (eight) hours as needed. [facility] oxyCODONE-a cetaminophe n 7.5-325 mg per tablet 2021-08 005 00:00: 00 Yes 1{tbl} Take 1 tablet by mouth every 8 (eight) hours as needed. [facility] oxyCODONE-a cetaminophe n 7.5-325 mg per tablet 2021-08 005 00:00: 00 Yes 1{tbl} Take 1 tablet by mouth every 8 (eight) hours as needed. [facility] oxyCODONE-a cetaminophe n 7.5-325 mg per tablet 2021-08 00:00: 00 Yes 1{tbl} Take 1 tablet by mouth every 8 (eight) hours as needed. [facility] oxyCODONE-a cetaminophe n 7.5-325 mg per tablet 2021-08 00:00: 00 Yes 1{tbl} Take 1 tablet by mouth in the morning and 1 tablet in the evening. [facility] oxyCODONE-a cetaminophe n 7.5-325 mg per tablet 2021-08 00:00: 00 Yes 1{tbl} Take 1 tablet by mouth in the morning and 1 tablet in the evening. [facility] oxyCODONE-a cetaminophe n 7.5-325 mg per tablet 2021-08 00:00: 00 Yes 1{tbl} Take 1 tablet by mouth in the morning and 1 tablet in the evening. [facility] oxyCODONE-a cetaminophe n 7.5-325 mg per tablet 2021-08 00:00: 00 Yes 1{tbl} Take 1 tablet by mouth in the morning and 1 tablet in the evening. [facility] oxyCODONE-a cetaminophe n 7.5-325 mg per tablet 2021-08 00:00: 00 Yes 1{tbl} Take 1 tablet by mouth in the morning and 1 tablet in the evening. [facility] oxyCODONE-a cetaminophe n 7.5-325 mg per tablet 2021-08 00:00: 00 Yes 1{tbl} Take 1 tablet by mouth in the morning and 1 tablet in the evening. [facility] oxyCODONE-a cetaminophe n 7.5-325 mg per tablet 2021-08 0 00:00: 00 Yes 1{tbl} Take 1 tablet by mouth in the morning and 1 tablet in the evening. [facility] oxyCODONE-a cetaminophe n 7.5-325 mg per tablet 2021-08 00:00: 00 Yes 1{tbl} Take 1 tablet by mouth in the morning and 1 tablet in the evening. [facility] oxyCODONE-a cetaminophe n 7.5-325 mg per tablet 2021-08 0 00:00: 00 Yes 1{tbl} Take 1 tablet by mouth in the morning and 1 tablet in the evening. [facility] oxyCODONE-a cetaminophe n 7.5-325 mg per tablet 2021-08 0 00:00: 00 Yes 1{tbl} Take 1 tablet by mouth in the morning and 1 tablet in the evening. [facility] oxyCODONE-a cetaminophe n 7.5-325 mg per tablet 2021-08 0 00:00: 00 Yes 1{tbl} Take 1 tablet by mouth in the morning and 1 tablet in the evening. [facility] [facility] oxyCODONE-a cetaminophe n 7.5-325 mg per tablet 2021-08 0 00:00: 00 Yes 1{tbl} Take 1 tablet by mouth in the morning and 1 tablet in the evening. [facility] oxyCODONE-a cetaminophe n 7.5-325 mg per tablet 2021-08 0 00:00: 00 Yes 1{tbl} Take 1 tablet by mouth in the morning and 1 tablet in the evening. [facility] oxyCODONE-a cetaminophe n 7.5-325 mg per tablet 2021-08 0 00:00: 00 Yes 1{tbl} Take 1 tablet by mouth in the morning and 1 tablet in the evening. [facility] oxyCODONE-a cetaminophe n 7.5-325 mg per tablet 2021-08 005 00:00: 00 Yes 1{tbl} Take 1 tablet by mouth in the morning and 1 tablet in the evening. [facility] oxyCODONE-a cetaminophe n 7.5-325 mg per tablet 2021-08 005 00:00: 00 Yes 1{tbl} Take 1 tablet by mouth in the morning and 1 tablet in the evening. [facility] oxyCODONE-a cetaminophe n 7.5-325 mg per tablet 2021-08 0 00:00: 00 Yes 1{tbl} Take 1 tablet by mouth in the morning and 1 tablet in the evening. [facility] oxyCODONE-a cetaminophe n 7.5-325 mg per tablet 2021-08 00:00: 00 Yes 1{tbl} Take 1 tablet by mouth in the morning and 1 tablet in the evening. [facility] oxyCODONE-a cetaminophe n 7.5-325 mg per tablet 2021-08 00:00: 00 Yes 1{tbl} Take 1 tablet by mouth in the morning and 1 tablet in the evening. [facility] oxyCODONE-a cetaminophe n 7.5-325 mg per tablet 2021-08 00:00: 00 Yes 1{tbl} Take 1 tablet by mouth in the morning and 1 tablet in the evening. [facility] oxyCODONE-a cetaminophe n 7.5-325 mg per tablet 2021-08 00:00: 00 Yes 1{tbl} Take 1 tablet by mouth in the morning and 1 tablet in the evening. [facility] oxyCODONE-a cetaminophe n 7.5-325 mg per tablet 2021-08 00:00: 00 Yes 1{tbl} Take 1 tablet by mouth in the morning and 1 tablet in the evening. [facility] oxyCODONE-a cetaminophe n 7.5-325 mg per tablet 2021-08 00:00: 00 Yes 1{tbl} Take 1 tablet by mouth in the morning and 1 tablet in the evening. [facility] oxyCODONE-a cetaminophe n 7.5-325 mg per tablet 2021-08 0 00:00: 00 Yes 1{tbl} Take 1 tablet by mouth in the morning and 1 tablet in the evening. [facility] oxyCODONE-a cetaminophe n 7.5-325 mg per tablet 2021-08 00:00: 00 Yes 1{tbl} Take 1 tablet by mouth in the morning and 1 tablet in the evening. [facility] oxyCODONE-a cetaminophe n 7.5-325 mg per tablet 2021-08 0 00:00: 00 Yes 1{tbl} Take 1 tablet by mouth in the morning and 1 tablet in the evening. [facility] oxyCODONE-a cetaminophe n 7.5-325 mg per tablet 2021-08 0 00:00: 00 Yes 1{tbl} Take 1 tablet by mouth in the morning and 1 tablet in the evening. [facility] oxyCODONE-a cetaminophe n 7.5-325 mg per tablet 2021-08 0 00:00: 00 Yes 1{tbl} Take 1 tablet by mouth in the morning and 1 tablet in the evening. [facility] oxyCODONE-a cetaminophe n 7.5-325 mg per tablet 2021-08 0 00:00: 00 Yes 1{tbl} Take 1 tablet by mouth in the morning and 1 tablet in the evening. [facility] oxyCODONE-a cetaminophe n 7.5-325 mg per tablet 2021-08 0 00:00: 00 Yes 1{tbl} Take 1 tablet by mouth in the morning and 1 tablet in the evening. [facility] oxyCODONE-a cetaminophe n 7.5-325 mg per tablet 2021-08 0 00:00: 00 Yes 1{tbl} Take 1 tablet by mouth in the morning and 1 tablet in the evening. [facility] oxyCODONE-a cetaminophe n 7.5-325 mg per tablet 2021-08 0 00:00: 00 Yes 1{tbl} Take 1 tablet by mouth in the morning and 1 tablet in the evening. [facility] oxyCODONE-a cetaminophe n 7.5-325 mg per tablet 2021-08 0 00:00: 00 Yes 1{tbl} Take 1 tablet by mouth in the morning and 1 tablet in the evening. [facility] oxyCODONE-a cetaminophe n 7.5-325 mg per tablet 2021-08 0 00:00: 00 Yes 1{tbl} Take 1 tablet by mouth in the morning and 1 tablet in the evening. [facility] oxyCODONE-a cetaminophe n 7.5-325 mg per tablet 2021-08 0 00:00: 00 Yes 1{tbl} Take 1 tablet by mouth in the morning and 1 tablet in the evening. [facility] oxyCODONE-a cetaminophe n 7.5-325 mg per tablet 2021-08 00:00: 00 Yes 1{tbl} Take 1 tablet by mouth in the morning and 1 tablet in the evening. [facility] oxyCODONE-a cetaminophe n 7.5-325 mg per tablet 2021-08 00:00: 00 Yes 1{tbl} Take 1 tablet by mouth in the morning and 1 tablet in the evening. [facility] oxyCODONE-a cetaminophe n 7.5-325 mg per tablet 2021-08 00:00: 00 Yes 1{tbl} Take 1 tablet by mouth in the morning and 1 tablet in the evening. [facility] oxyCODONE-a cetaminophe n 7.5-325 mg per tablet 2021-08 00:00: 00 Yes 1{tbl} Take 1 tablet by mouth in the morning and 1 tablet in the evening. [facility] oxyCODONE-a cetaminophe n 7.5-325 mg per tablet 2021-08 0 00:00: 00 Yes 1{tbl} Take 1 tablet by mouth in the morning and 1 tablet in the evening. [facility] oxyCODONE-a cetaminophe n 7.5-325 mg per tablet 2021-08 0 00:00: 00 Yes 1{tbl} Take 1 tablet by mouth in the morning and 1 tablet in the evening. [facility] oxyCODONE-a cetaminophe n 7.5-325 mg per tablet 2021-08 0 00:00: 00 Yes 1{tbl} Take 1 tablet by mouth in the morning and 1 tablet in the evening. [facility] oxyCODONE-a cetaminophe n 7.5-325 mg per tablet 2021-08 0 00:00: 00 Yes 1{tbl} Take 1 tablet by mouth in the morning and 1 tablet in the evening. [facility] oxyCODONE-a cetaminophe n 7.5-325 mg per tablet 2021-08 0 00:00: 00 Yes 1{tbl} Take 1 tablet by mouth in the morning and 1 tablet in the evening. [facility] oxyCODONE-a cetaminophe n 7.5-325 mg per tablet 2021-08 00:00: 00 Yes 1{tbl} Take 1 tablet by mouth in the morning and 1 tablet in the evening. [facility] oxyCODONE-a cetaminophe n 7.5-325 mg per tablet 2021-08 00:00: 00 Yes 1{tbl} Take 1 tablet by mouth in the morning and 1 tablet in the evening. [facility] oxyCODONE-a cetaminophe n 7.5-325 mg per tablet 2021-08 00:00: 00 Yes 1{tbl} Take 1 tablet by mouth in the morning and 1 tablet in the evening. [facility] oxyCODONE-a cetaminophe n 7.5-325 mg per tablet 2021-08 00:00: 00 Yes 1{tbl} Take 1 tablet by mouth in the morning and 1 tablet in the evening. [facility] oxyCODONE-a cetaminophe n 7.5-325 mg per tablet 2021-08 0 00:00: 00 Yes 1{tbl} Take 1 tablet by mouth in the morning and 1 tablet in the evening. [facility] oxyCODONE-a cetaminophe n 7.5-325 mg per tablet 2021-08 0 00:00: 00 Yes 1{tbl} Take 1 tablet by mouth in the morning and 1 tablet in the evening. [facility] TAKE 1 TABLET 3 TIMES DAILY NEEDED. 03-05 00:00: 00 No 10 TAKE 1 TABLET 3 TIMES DAILY NEEDED. 03-05 00:00: 00 No 10 TAKE 1 TABLET DAILY. 03-03 00:00: 00 No 50 TAKE 1 TABLET DAILY. 03-03 00:00: 00 No 50 TAKE 1 TABLET DAILY. 03-03 00:00: 00 No 50 spironolact one 100 mg tablet 12-18 00:00: 00 03-19 04:59 :00 No [id number] 100mg Take 1 tablet by mouth daily for 90 days. [facility] mometasone/ formoterol (DULERA INHALE) 12-17 21:29: 50 Yes Inhale. [facility] aspirin 81 mg chewable tablet 12-17 21:29: 50 Yes 81mg Take 81 mg by mouth daily. [facility] gabapentin 300 mg capsule 12-17 21:29: 50 Yes 300mg Take 300 mg by mouth 2 (two) times daily. [facility] mometasone/ formoterol (DULERA INHALE) 12-17 21:29: 50 Yes Inhale. [facility] aspirin 81 mg chewable tablet 12-17 21:29: 50 Yes 81mg Take 81 mg by mouth daily. [facility] gabapentin 300 mg capsule 12-17 21:29: 50 Yes 300mg Take 300 mg by mouth 2 (two) times daily. [facility] mometasone/ formoterol (DULERA INHALE) 12-17 21:29: 50 Yes Inhale. [facility] aspirin 81 mg chewable tablet 12-17 21:29: 50 Yes 81mg Take 81 mg by mouth daily. [facility] gabapentin 300 mg capsule 12-17 21:29: 50 Yes 300mg Take 300 mg by mouth 2 (two) times daily. [facility] lactulose (CEPHULAC) solution 15 mL 12-17 17:00: 00 Yes 15mL 15 mL, Oral, QID, First dose (after last modificati on) on Maribell 12/17/21 at 1200, Until Discontinu ed, Routine [facility] furosemide (LASIX) 40 mg tablet 12-17 14:49: 22 12-17 00:00 :00 No 40mg Take 40 mg by mouth every morning and evening. [facility] torsemide (SOAANZ) tablet 80 mg 12-17 14:00: 00 Yes 80mg 80 mg, Oral, DAILY, First dose on Tue12/17/21 at 0900, Until Discontinu ed, Routine [facility] Dose Unknown 12-17 00:00: 00 No Dose Unknown 12-17 00:00: 00 No Dose Unknown 12-17 00:00: 00 No lactulose 10 gram/15 mL solution 12-17 00:00: 00 03-18 04:59 :00 No [id number] 15mL Take 15 mL by mouth 4 (four) times daily for 90 days. [facility] furosemide 40 mg tablet 12-17 00:00: 00 03-18 04:59 :00 No [id number] 60mg Take 1.5 tablets by mouth every morning and evening for 90 days. [facility] carvediloL 3.125 mg tablet 12-17 00:00: 00 03-18 04:59 :00 No [id number] 3.125mg Take 1 tablet by mouth 2 (two) times daily with meals for 90 days. [facility] triamcinolo ne acetonide 0.1 % ointment 12-17 00:00: 00 01-17 04:59 :00 No [id number] Apply to area(s) 2 (two) times daily for 30 days. [facility] carvedilol 1.25 mg/mL oral suspension 12-17 00:00: 00 12-17 00:00 :00 No [id number] 3.125mg Take 2.5 mL by mouth 2 (two) times daily with meals for 90 days. [facility] enoxaparin (LOVENOX) injection 40 mg 12-16 22:00: 00 Yes 40mg 40 mg, Subcutaneo us, DAILY, First dose on Tue12/16/21 at 1700, Until Discontinu ed, Routine [facility] mupirocin (BACTROBAN OINT) 2 % skin ointment 12-16 19:00: 00 Yes [facility] lactulose (CEPHULAC) solution 15 mL 12-16 19:00: 00 12-17 14:29 :17 No 15mL 15 mL, Oral, TID, First dose (after last modificati on) on Tue12/16/21 at 1400, Until Discontinu ed, Routine [facility] torsemide (SOAANZ) tablet 60 mg 12-16 15:45: 00 12-16 15:50 :00 No 60mg 60 mg, Oral, ONCE NOW, 1 dose, On Tue12/16/21 at 1045, Routine [facility] triamcinolo ne acetonide (KENALOG) 0.1 % ointment 12-16 14:45: 00 Yes Topical, BID, First dose on Tue12/16/21 at 0945, Until Discontinu ed, Routine [facility] carvedilol (COREG) 1.25 mg/mL oral suspension 3.125 mg 12-16 14:30: 00 Yes 3.125mg 3.125 mg, Oral, BID MEALS, First dose on Tue12/16/21 at 0930, Until Discontinu ed, Routine [facility] spironolact one (ALDACTONE) tablet 100 mg 12-16 14:00: 00 Yes 100mg 100 mg, Oral, DAILY, First dose on Tue12/16/21 at 0900, Until Discontinu ed, Routine [facility] aspirin chewable tablet 81 mg 12-16 14:00: 00 Yes 81mg 81 mg, Oral, DAILY, First dose on Tue12/16/21 at 0900, Until Discontinu ed, Routine [facility] lactulose (CEPHULAC) solution 15 mL 12-16 14:00: 00 12-16 14:13 :06 No 15mL 15 mL, Oral, DAILY, First dose on Tue12/16/21 at 0900, Until Discontinu ed, Routine [facility] furosemide (LASIX) tablet 40 mg 12-16 14:00: 00 12-16 16:26 :55 No 40mg 40 mg, Oral, DAILY, First dose on Tue12/16/21 at 0900, Until Discontinu ed, Routine [facility] budesonide- formoteroL (SYMBICORT) 80-4.5 mcg/actuati on inhaler 2 Puff 12-16 13:00: 00 Yes 2{puff} 2 Puff, Inhalation , BID, First dose (after last modificati on) on Tue12/16/21 at 0800, Until Discontinu ed [facility] gabapentin (NEURONTIN) capsule 300 mg 12-16 13:00: 00 Yes 300mg 300 mg, Oral, BID, First dose on Tue12/16/21 at 0800, Until Discontinu ed, Routine [facility] ipratropium -albuteroL (DUONEB) 0.5 mg-3 mg(2.5 mg base)/3 mL nebulizer solution 3 mL 12-16 09:00: 00 Yes 3mL 3 mL, Inhalation , Q4H, First dose (after last modificati on) on Tue12/16/21 at 0400, Until Discontinu ed, Routine [facility] albuterol (PROVENTIL) 2.5 mg /3 mL (0.083 %) nebulizer solution 2.5 mg 12-16 08:29: 37 Yes 2.5mg 2.5 mg, Inhalation , Q6HPRN, Starting on Tue12/16/21 at 0329, Until Discontinu ed, Routine, Shortness of Breath, Wheezing [facility] acetaminoph en (TYLENOL) tablet 650 mg 12-16 08:02: 27 Yes 650mg 650 mg, Oral, Q6HPRN, Starting on Tue12/16/21 at 0302, Until Discontinu ed, Routine, Pain (scale 1-3) [facility] traMADoL (ULTRAM) tablet 50 mg 12-16 08:02: 27 12-18 08:01 :27 No 50mg 50 mg, Oral, Q8HPRN, Starting on Tue12/16/21 at 0302, Until Tue12/18/21 at 0301, Routine, Pain (scale 4-6) [facility] iohexol (OMNIPAQUE 350 BULK-100 mL) injection 80 mL 12-16 02:15: 00 12-16 02:15 :00 No [id number] 80mL 80 mL, Intravenou s, ONCE, 1 dose, On Tue12/15/21 at 2115, Routine [facility] furosemide (LASIX) injection 80 mg 12-16 02:00: 00 12-16 01:23 :00 No 80mg 80 mg, IV Push, ONCE, 1 dose, On Tue12/15/21 at 2100, LARRY [facility] aspirin tablet 325 mg 12-15 23:00: 00 12-15 22:47 :00 No 325mg 325 mg, Oral, ONCE, 1 dose, On Tue12/15/21 at 1800, STAT [facility] ipratropium -albuteroL (DUONEB) 0.5 mg-3 mg(2.5 mg base)/3 mL nebulizer solution 3 mL 12-15 21:48: 00 12-15 22:47 :00 No 3mL 3 mL, Inhalation , ONCE NOW, 1 dose, On Tue12/15/21 at 1700, LARRY [facility] sodium chloride (NS) injection 5 mL 12-15 21:28: 01 Yes 5mL 5 mL, Intravenou s, PRN, Starting on Tue12/15/21 at 1628, Until Discontinu ed, Routine, IV line flushing [facility] azithromyci n (ZITHROMAX) tablet 500 mg 11-06 13:00: 00 11-07 00:59 :00 No 500mg 500 mg, Oral, ONCE, 1 dose, On Tue11/06/21 at 0800, Routine
Reason for Anti-Infec tive: Empiric Therapy for Suspected Infection< br>Empiric Therapy Site: Respirator y
Durat ion of [facility]: [facility] /3 mL (0.083 %) nebulizer solution 11-06 00:00: 00 Yes [id number] 2.5mg Inhale 3 mL every 4 (four) hours as needed for Wheezing or Shortness of Breath. [facility] albuterol 2.5 mg /3 mL (0.083 %) nebulizer solution 11-06 00:00: 00 Yes [id number] 2.5mg Inhale 3 mL every 4 (four) hours as needed for Wheezing or Shortness of Breath. [facility] albuterol 2.5 mg /3 mL (0.083 %) nebulizer solution 11-06 00:00: 00 Yes [id number] 2.5mg Inhale 3 mL every 4 (four) hours as needed for Wheezing or Shortness of Breath. [facility] albuterol 2.5 mg /3 mL (0.083 %) nebulizer solution 11-06 00:00: 00 Yes [id number] 2.5mg Inhale 3 mL every 4 (four) hours as needed for Wheezing or Shortness of Breath. [facility] albuterol 2.5 mg /3 mL (0.083 %) nebulizer solution 11-06 00:00: 00 Yes [id number] 2.5mg Inhale 3 mL every 4 (four) hours as needed for Wheezing or Shortness of Breath. [facility].5 [facility] /3 mL (0.083 %) nebulizer solution 11-06 00:00: 00 Yes [id number] 2.5mg Inhale 3 mL every 4 (four) hours as needed for Wheezing or Shortness of Breath. [facility] albuterol 2.5 mg /3 mL (0.083 %) nebulizer solution 11-06 00:00: 00 Yes [id number] 2.5mg Inhale 3 mL every 4 (four) hours as needed for Wheezing or Shortness of Breath. [facility] albuterol 2.5 mg /3 mL (0.083 %) nebulizer solution 11-06 00:00: 00 Yes [id number] 2.5mg Inhale 3 mL every 4 (four) hours as needed for Wheezing or Shortness of Breath. [facility] albuterol 2.5 mg /3 mL (0.083 %) nebulizer solution 11-06 00:00: 00 Yes [id number] 2.5mg Inhale 3 mL every 4 (four) hours as needed for Wheezing or Shortness of Breath. [facility] albuterol 2.5 mg /3 mL (0.083 %) nebulizer solution 11-06 00:00: 00 Yes [id number] 2.5mg Inhale 3 mL every 4 (four) hours as needed for Wheezing or Shortness of Breath. [facility] albuterol 2.5 mg /3 mL (0.083 %) nebulizer solution 11-06 00:00: 00 Yes [id number] 2.5mg Inhale 3 mL every 4 (four) hours as needed for Wheezing or Shortness of Breath. [facility] albuterol 2.5 mg /3 mL (0.083 %) nebulizer solution 11-06 00:00: 00 Yes [id number] 2.5mg Inhale 3 mL every 4 (four) hours as needed for Wheezing or Shortness of Breath. [facility] albuterol 2.5 mg /3 mL (0.083 %) nebulizer solution 11-06 00:00: 00 Yes [id number] 2.5mg Inhale 3 mL every 4 (four) hours as needed for Wheezing or Shortness of Breath. [facility] albuterol 2.5 mg /3 mL (0.083 %) nebulizer solution 11-06 00:00: 00 Yes [id number] 2.5mg Inhale 3 mL every 4 (four) hours as needed for Wheezing or Shortness of Breath. [facility] albuterol 2.5 mg /3 mL (0.083 %) nebulizer solution 11-06 00:00: 00 Yes [id number] 2.5mg Inhale 3 mL every 4 (four) hours as needed for Wheezing or Shortness of Breath. [facility] albuterol 2.5 mg /3 mL (0.083 %) nebulizer solution 11-06 00:00: 00 Yes [id number] 2.5mg Inhale 3 mL every 4 (four) hours as needed for Wheezing or Shortness of Breath. [facility] albuterol 2.5 mg /3 mL (0.083 %) nebulizer solution 11-06 00:00: 00 Yes [id number] 2.5mg Inhale 3 mL every 4 (four) hours as needed for Wheezing or Shortness of Breath. [facility] albuterol 2.5 mg /3 mL (0.083 %) nebulizer solution 11-06 00:00: 00 Yes [id number] 2.5mg Inhale 3 mL every 4 (four) hours as needed for Wheezing or Shortness of Breath. [facility] albuterol 2.5 mg /3 mL (0.083 %) nebulizer solution 11-06 00:00: 00 Yes [id number] 2.5mg Inhale 3 mL every 4 (four) hours as needed for Wheezing or Shortness of Breath. [facility] albuterol 2.5 mg /3 mL (0.083 %) nebulizer solution 11-06 00:00: 00 Yes [id number] 2.5mg Inhale 3 mL every 4 (four) hours as needed for Wheezing or Shortness of Breath. [facility] albuterol 2.5 mg /3 mL (0.083 %) nebulizer solution 11-06 00:00: 00 Yes [id number] 2.5mg Inhale 3 mL every 4 (four) hours as needed for Wheezing or Shortness of Breath. [facility] albuterol 2.5 mg /3 mL (0.083 %) nebulizer solution 11-06 00:00: 00 Yes [id number] 2.5mg Inhale 3 mL every 4 (four) hours as needed for Wheezing or Shortness of Breath. [facility] albuterol 2.5 mg /3 mL (0.083 %) nebulizer solution 11-06 00:00: 00 Yes [id number] 2.5mg Inhale 3 mL every 4 (four) hours as needed for Wheezing or Shortness of Breath. [facility] albuterol 2.5 mg /3 mL (0.083 %) nebulizer solution 11-06 00:00: 00 Yes [id number] 2.5mg Inhale 3 mL every 4 (four) hours as needed for Wheezing or Shortness of Breath. [facility] albuterol 2.5 mg /3 mL (0.083 %) nebulizer solution 11-06 00:00: 00 Yes [id number] 2.5mg Inhale 3 mL every 4 (four) hours as needed for Wheezing or Shortness of Breath. [facility] albuterol 2.5 mg /3 mL (0.083 %) nebulizer solution 11-06 00:00: 00 Yes [id number] 2.5mg Inhale 3 mL every 4 (four) hours as needed for Wheezing or Shortness of Breath. [facility] albuterol 2.5 mg /3 mL (0.083 %) nebulizer solution 11-06 00:00: 00 Yes [id number] 2.5mg Inhale 3 mL every 4 (four) hours as needed for Wheezing or Shortness of Breath. [facility] albuterol 2.5 mg /3 mL (0.083 %) nebulizer solution 11-06 00:00: 00 Yes [id number] 2.5mg Inhale 3 mL every 4 (four) hours as needed for Wheezing or Shortness of Breath. [facility] albuterol 2.5 mg /3 mL (0.083 %) nebulizer solution 11-06 00:00: 00 Yes [id number] 2.5mg Inhale 3 mL every 4 (four) hours as needed for Wheezing or Shortness of Breath. [facility] albuterol 2.5 mg /3 mL (0.083 %) nebulizer solution 11-06 00:00: 00 Yes [id number] 2.5mg Inhale 3 mL every 4 (four) hours as needed for Wheezing or Shortness of Breath. [facility] albuterol 2.5 mg /3 mL (0.083 %) nebulizer solution 11-06 00:00: 00 Yes [id number] 2.5mg Inhale 3 mL every 4 (four) hours as needed for Wheezing or Shortness of Breath. [facility] albuterol 2.5 mg /3 mL (0.083 %) nebulizer solution 11-06 00:00: 00 Yes [id number] 2.5mg Inhale 3 mL every 4 (four) hours as needed for Wheezing or Shortness of Breath. [facility] albuterol 2.5 mg /3 mL (0.083 %) nebulizer solution 11-06 00:00: 00 Yes [id number] 2.5mg Inhale 3 mL every 4 (four) hours as needed for Wheezing or Shortness of Breath. [facility] albuterol 2.5 mg /3 mL (0.083 %) nebulizer solution 11-06 00:00: 00 Yes [id number] 2.5mg Inhale 3 mL every 4 (four) hours as needed for Wheezing or Shortness of Breath. [facility] albuterol 2.5 mg /3 mL (0.083 %) nebulizer solution 11-06 00:00: 00 Yes [id number] 2.5mg Inhale 3 mL every 4 (four) hours as needed for Wheezing or Shortness of Breath. [facility] albuterol 2.5 mg /3 mL (0.083 %) nebulizer solution 11-06 00:00: 00 Yes [id number] 2.5mg Inhale 3 mL every 4 (four) hours as needed for Wheezing or Shortness of Breath. [facility] albuterol 2.5 mg /3 mL (0.083 %) nebulizer solution 11-06 00:00: 00 Yes [id number] 2.5mg Inhale 3 mL every 4 (four) hours as needed for Wheezing or Shortness of Breath. [facility] albuterol 2.5 mg /3 mL (0.083 %) nebulizer solution 11-06 00:00: 00 Yes [id number] 2.5mg Inhale 3 mL every 4 (four) hours as needed for Wheezing or Shortness of Breath. [facility] albuterol 2.5 mg /3 mL (0.083 %) nebulizer solution 11-06 00:00: 00 Yes [id number] 2.5mg Inhale 3 mL every 4 (four) hours as needed for Wheezing or Shortness of Breath. [facility] albuterol 2.5 mg /3 mL (0.083 %) nebulizer solution 11-06 00:00: 00 Yes [id number] 2.5mg Inhale 3 mL every 4 (four) hours as needed for Wheezing or Shortness of Breath. [facility] albuterol 2.5 mg /3 mL (0.083 %) nebulizer solution 11-06 00:00: 00 Yes [id number] 2.5mg Inhale 3 mL every 4 (four) hours as needed for Wheezing or Shortness of Breath. [facility] albuterol 2.5 mg /3 mL (0.083 %) nebulizer solution 11-06 00:00: 00 Yes [id number] 2.5mg Inhale 3 mL every 4 (four) hours as needed for Wheezing or Shortness of Breath. [facility] albuterol 2.5 mg /3 mL (0.083 %) nebulizer solution 11-06 00:00: 00 Yes [id number] 2.5mg Inhale 3 mL every 4 (four) hours as needed for Wheezing or Shortness of Breath. [facility] albuterol 2.5 mg /3 mL (0.083 %) nebulizer solution 11-06 00:00: 00 Yes [id number] 2.5mg Inhale 3 mL every 4 (four) hours as needed for Wheezing or Shortness of Breath. [facility] [facility] albuterol 2.5 mg /3 mL (0.083 %) nebulizer solution 11-06 00:00: 00 Yes [id number] 2.5mg Inhale 3 mL every 4 (four) hours as needed for Wheezing or Shortness of Breath. [facility] albuterol 2.5 mg /3 mL (0.083 %) nebulizer solution 11-06 00:00: 00 Yes [id number] 2.5mg Inhale 3 mL every 4 (four) hours as needed for Wheezing or Shortness of Breath. [facility] albuterol 2.5 mg /3 mL (0.083 %) nebulizer solution 11-06 00:00: 00 Yes [id number] 2.5mg Inhale 3 mL every 4 (four) hours as needed for Wheezing or Shortness of Breath. [facility] albuterol 2.5 mg /3 mL (0.083 %) nebulizer solution 11-06 00:00: 00 Yes [id number] 2.5mg Inhale 3 mL every 4 (four) hours as needed for Wheezing or Shortness of Breath. [facility] ity [facility] albuterol 2.5 mg /3 mL (0.083 %) nebulizer solution 11-06 00:00: 00 Yes [id number] 2.5mg Inhale 3 mL every 4 (four) hours as needed for Wheezing or Shortness of Breath. [facility] albuterol 2.5 mg /3 mL (0.083 %) nebulizer solution 11-06 00:00: 00 Yes [id number] 2.5mg Inhale 3 mL every 4 (four) hours as needed for Wheezing or Shortness of Breath. [facility] albuterol 2.5 mg /3 mL (0.083 %) nebulizer solution 11-06 00:00: 00 Yes [id number] 2.5mg Inhale 3 mL every 4 (four) hours as needed for Wheezing or Shortness of Breath. [facility] albuterol 2.5 mg /3 mL (0.083 %) nebulizer solution 11-06 00:00: 00 Yes [id number] 2.5mg Inhale 3 mL every 4 (four) hours as needed for Wheezing or Shortness of Breath. [facility] [place] [facility] albuterol 2.5 mg /3 mL (0.083 %) nebulizer solution 11-06 00:00: 00 Yes [id number] 2.5mg Inhale 3 mL every 4 (four) hours as needed for Wheezing or Shortness of Breath. [facility] it[facility] albuterol 2.5 mg /3 mL (0.083 %) nebulizer solution 11-06 00:00: 00 Yes [id number] 2.5mg Inhale 3 mL every 4 (four) hours as needed for Wheezing or Shortness of Breath. [facility] albuterol 2.5 mg /3 mL (0.083 %) nebulizer solution 11-06 00:00: 00 Yes [id number] 2.5mg Inhale 3 mL every 4 (four) hours as needed for Wheezing or Shortness of Breath. [facility] it[facility] albuterol 2.5 mg /3 mL (0.083 %) nebulizer solution 11-06 00:00: 00 Yes [id number] 2.5mg Inhale 3 mL every 4 (four) hours as needed for Wheezing or Shortness of Breath. [facility] it[facility] albuterol 2.5 mg /3 mL (0.083 %) nebulizer solution 11-06 00:00: 00 Yes [id number] 2.5mg Inhale 3 mL every 4 (four) hours as needed for Wheezing or Shortness of Breath. [facility] albuterol 2.5 mg /3 mL (0.083 %) nebulizer solution 11-06 00:00: 00 Yes [id number] 2.5mg Inhale 3 mL every 4 (four) hours as needed for Wheezing or Shortness of Breath. [facility] albuterol 2.5 mg /3 mL (0.083 %) nebulizer solution 11-06 00:00: 00 Yes [id number] 2.5mg Inhale 3 mL every 4 (four) hours as needed for Wheezing or Shortness of Breath. [facility] albuterol 2.5 mg /3 mL (0.083 %) nebulizer solution 11-06 00:00: 00 Yes [id number] 2.5mg Inhale 3 mL every 4 (four) hours as needed for Wheezing or Shortness of Breath. [facility] albuterol 2.5 mg /3 mL (0.083 %) nebulizer solution 11-06 00:00: 00 Yes [id number] 2.5mg Inhale 3 mL every 4 (four) hours as needed for Wheezing or Shortness of Breath. [facility] albuterol 2.5 mg /3 mL (0.083 %) nebulizer solution 11-06 00:00: 00 Yes [id number] 2.5mg Inhale 3 mL every 4 (four) hours as needed for Wheezing or Shortness of Breath. [facility] albuterol 2.5 mg /3 mL (0.083 %) nebulizer solution 11-06 00:00: 00 Yes [id number] 2.5mg Inhale 3 mL every 4 (four) hours as needed for Wheezing or Shortness of Breath. [facility] albuterol 2.5 mg /3 mL (0.083 %) nebulizer solution 11-06 00:00: 00 Yes [id number] 2.5mg Inhale 3 mL every 4 (four) hours as needed for Wheezing or Shortness of Breath. [facility] albuterol 2.5 mg /3 mL (0.083 %) nebulizer solution 11-06 00:00: 00 Yes [id number] 2.5mg Inhale 3 mL every 4 (four) hours as needed for Wheezing or Shortness of Breath. [facility] albuterol 2.5 mg /3 mL (0.083 %) nebulizer solution 11-06 00:00: 00 Yes [id number] 2.5mg Inhale 3 mL every 4 (four) hours as needed for Wheezing or Shortness of Breath. [facility] [place] [facility] albuterol 2.5 mg /3 mL (0.083 %) nebulizer solution 11-06 00:00: 00 Yes [id number] 2.5mg Inhale 3 mL every 4 (four) hours as needed for Wheezing or Shortness of Breath. [facility] [place] [facility] albuterol 2.5 mg /3 mL (0.083 %) nebulizer solution 11-06 00:00: 00 Yes [id number] 2.5mg Inhale 3 mL every 4 (four) hours as needed for Wheezing or Shortness of Breath. [facility] albuterol 2.5 mg /3 mL (0.083 %) nebulizer solution 11-06 00:00: 00 Yes [id number] 2.5mg Inhale 3 mL every 4 (four) hours as needed for Wheezing or Shortness of Breath. [facility] albuterol 2.5 mg /3 mL (0.083 %) nebulizer solution 11-06 00:00: 00 Yes [id number] 2.5mg Inhale 3 mL every 4 (four) hours as needed for Wheezing or Shortness of Breath. [facility] albuterol 2.5 mg /3 mL (0.083 %) nebulizer solution 11-06 00:00: 00 Yes [id number] 2.5mg Inhale 3 mL every 4 (four) hours as needed for Wheezing or Shortness of Breath. [facility] albuterol 2.5 mg /3 mL (0.083 %) nebulizer solution 11-06 00:00: 00 Yes [id number] 2.5mg Inhale 3 mL every 4 (four) hours as needed for Wheezing or Shortness of Breath. [facility] albuterol 2.5 mg /3 mL (0.083 %) nebulizer solution 11-06 00:00: 00 Yes [id number] 2.5mg Inhale 3 mL every 4 (four) hours as needed for Wheezing or Shortness of Breath. [facility] albuterol 2.5 mg /3 mL (0.083 %) nebulizer solution 11-06 00:00: 00 Yes [id number] 2.5mg Inhale 3 mL every 4 (four) hours as needed for Wheezing or Shortness of Breath. [facility] albuterol 2.5 mg /3 mL (0.083 %) nebulizer solution 11-06 00:00: 00 Yes [id number] 2.5mg Inhale 3 mL every 4 (four) hours as needed for Wheezing or Shortness of Breath. [facility] albuterol 2.5 mg /3 mL (0.083 %) nebulizer solution 11-06 00:00: 00 Yes [id number] 2.5mg Inhale 3 mL every 4 (four) hours as needed for Wheezing or Shortness of Breath. [facility] albuterol 2.5 mg /3 mL (0.083 %) nebulizer solution 11-06 00:00: 00 Yes [id number] 2.5mg Inhale 3 mL every 4 (four) hours as needed for Wheezing or Shortness of Breath. [facility] albuterol 2.5 mg /3 mL (0.083 %) nebulizer solution 11-06 00:00: 00 Yes [id number] 2.5mg Inhale 3 mL every 4 (four) hours as needed for Wheezing or Shortness of Breath. [facility] albuterol 2.5 mg /3 mL (0.083 %) nebulizer solution 11-06 00:00: 00 Yes [id number] 2.5mg Inhale 3 mL every 4 (four) hours as needed for Wheezing or Shortness of Breath. [facility] albuterol 2.5 mg /3 mL (0.083 %) nebulizer solution 11-06 00:00: 00 Yes [id number] 2.5mg Inhale 3 mL every 4 (four) hours as needed for Wheezing or Shortness of Breath. [facility] albuterol 2.5 mg /3 mL (0.083 %) nebulizer solution 11-06 00:00: 00 Yes [id number] 2.5mg Inhale 3 mL every 4 (four) hours as needed for Wheezing or Shortness of Breath. [facility] albuterol 2.5 mg /3 mL (0.083 %) nebulizer solution 11-06 00:00: 00 Yes [id number] 2.5mg Inhale 3 mL every 4 (four) hours as needed for Wheezing or Shortness of Breath. [facility] ipratropium 0.02 % nebulizer solution 11-06 00:00: 00 12-16 00:00 :00 No [id number] .5mg Inhale 2.5 mL every 4 (four) hours as needed for Wheezing or Shortness of Breath. [facility] aspirin E.C. 325 mg EC tablet 11-06 00:00: 00 12-07 04:59 :00 No [id number] 325mg Take 1 tablet by mouth daily with breakfast for 30 days. [facility] cholecalcif tere, vitamin D3, 25 mcg (1,000 unit) tablet 11-06 00:00: 00 12-07 04:59 :00 No [id number] 2000U Take 2 tablets by mouth daily for 30 days. [facility] metoprolol succinate XL 25 mg 24 hr tablet 11-06 00:00: 00 12-07 04:59 :00 No [id number] 25mg Take 1 tablet by mouth daily for 30 days. [facility] aspirin E.C. 325 mg EC tablet 11-06 00:00: 00 12-07 04:59 :00 No [id number] 325mg Take 1 tablet by mouth daily with breakfast for 30 days. [facility] cholecalcif tere, vitamin D3, 25 mcg (1,000 unit) tablet 11-06 00:00: 00 12-07 04:59 :00 No [id number] 2000U Take 2 tablets by mouth daily for 30 days. [facility] metoprolol succinate XL 25 mg 24 hr tablet 11-06 00:00: 00 12-07 04:59 :00 No [id number] 25mg Take 1 tablet by mouth daily for 30 days. [facility] predniSONE 50 mg tablet 11-06 00:00: 00 11-10 04:59 :00 No [id number] 50mg Take 1 tablet by mouth every day at 1200 (noon) for 3 days. [facility] predniSONE 50 mg tablet 11-06 00:00: 00 11-10 04:59 :00 No [id number] 50mg Take 1 tablet by mouth every day at 1200 (noon) for 3 days. [facility] mometasone/ formoterol (DULERA INHALE) 11-05 18:48: 11 Yes Inhale. [facility] mometasone/ formoterol (DULERA INHALE) 11-05 18:48: 11 Yes Inhale. [facility] cholecalcif tere (vitamin D3) tablet 2,000 Units 11-05 15:00: 00 Yes 2000U 2,000 Units, Oral, DAILY, First dose on [place] 11/05/21 at 1000, Until Discontinu ed, Routine [facility] gabapentin 300 mg capsule 11-05 14:03: 11-05 00:00 :00 No 300mg Take 300 mg by mouth 2 (two) times daily. Unsure on dose [facility] ALBUTEROL INHALE 11-05 14:03: 11-05 00:00 :00 No Inhale. [facility] albuterol 90 mcg/actuati on inhaler 11-05 00:00: 00 Yes [id number] 2{puff} Inhale 2 Puffs every 6 (six) hours as needed for Wheezing or Shortness of Breath. [facility] albuterol 90 mcg/actuati on inhaler 11-05 00:00: 00 Yes [id number] 2{puff} Inhale 2 Puffs every 6 (six) hours as needed for Wheezing or Shortness of Breath. [facility] albuterol 90 mcg/actuati on inhaler 11-05 00:00: 00 Yes [id number] 2{puff} Inhale 2 Puffs every 6 (six) hours as needed for Wheezing or Shortness of Breath. [facility] albuterol 90 mcg/actuati on inhaler 11-05 00:00: 00 Yes [id number] 2{puff} Inhale 2 Puffs every 6 (six) hours as needed for Wheezing or Shortness of Breath. [facility] albuterol 90 mcg/actuati on inhaler 11-05 00:00: 00 Yes [id number] 2{puff} Inhale 2 Puffs every 6 (six) hours as needed for Wheezing or Shortness of Breath. [facility] albuterol 90 mcg/actuati on inhaler 11-05 00:00: 00 Yes [id number] 2{puff} Inhale 2 Puffs every 6 (six) hours as needed for Wheezing or Shortness of Breath. [facility] albuterol 90 mcg/actuati on inhaler 11-05 00:00: 00 Yes [id number] 2{puff} Inhale 2 Puffs every 6 (six) hours as needed for Wheezing or Shortness of Breath. [facility] albuterol 90 mcg/actuati on inhaler 11-05 00:00: 00 Yes [id number] 2{puff} Inhale 2 Puffs every 6 (six) hours as needed for Wheezing or Shortness of Breath. [facility] albuterol 90 mcg/actuati on inhaler 11-05 00:00: 00 Yes [id number] 2{puff} Inhale 2 Puffs every 6 (six) hours as needed for Wheezing or Shortness of Breath. [facility] albuterol 90 mcg/actuati on inhaler 11-05 00:00: 00 Yes [id number] 2{puff} Inhale 2 Puffs every 6 (six) hours as needed for Wheezing or Shortness of Breath. [facility] albuterol 90 mcg/actuati on inhaler 11-05 00:00: 00 Yes [id number] 2{puff} Inhale 2 Puffs every 6 (six) hours as needed for Wheezing or Shortness of Breath. [facility] albuterol 90 mcg/actuati on inhaler 11-05 00:00: 00 Yes [id number] 2{puff} Inhale 2 Puffs every 6 (six) hours as needed for Wheezing or Shortness of Breath. [facility] albuterol 90 mcg/actuati on inhaler 11-05 00:00: 00 Yes [id number] 2{puff} Inhale 2 Puffs every 6 (six) hours as needed for Wheezing or Shortness of Breath. [facility] albuterol 90 mcg/actuati on inhaler 11-05 00:00: 00 Yes [id number] 2{puff} Inhale 2 Puffs every 6 (six) hours as needed for Wheezing or Shortness of Breath. [facility] albuterol 90 mcg/actuati on inhaler 11-05 00:00: 00 Yes [id number] 2{puff} Inhale 2 Puffs every 6 (six) hours as needed for Wheezing or Shortness of Breath. [facility] albuterol 90 mcg/actuati on inhaler 11-05 00:00: 00 Yes [id number] 2{puff} Inhale 2 Puffs every 6 (six) hours as needed for Wheezing or Shortness of Breath. [facility] albuterol 90 mcg/actuati on inhaler 11-05 00:00: 00 Yes [id number] 2{puff} Inhale 2 Puffs every 6 (six) hours as needed for Wheezing or Shortness of Breath. [facility] albuterol 90 mcg/actuati on inhaler 11-05 00:00: 00 Yes [id number] 2{puff} Inhale 2 Puffs every 6 (six) hours as needed for Wheezing or Shortness of Breath. [facility] albuterol 90 mcg/actuati on inhaler 11-05 00:00: 00 Yes [id number] 2{puff} Inhale 2 Puffs every 6 (six) hours as needed for Wheezing or Shortness of Breath. [facility] albuterol 90 mcg/actuati on inhaler 11-05 00:00: 00 Yes [id number] 2{puff} Inhale 2 Puffs every 6 (six) hours as needed for Wheezing or Shortness of Breath. [facility] albuterol 90 mcg/actuati on inhaler 11-05 00:00: 00 Yes [id number] 2{puff} Inhale 2 Puffs every 6 (six) hours as needed for Wheezing or Shortness of Breath. [facility] albuterol 90 mcg/actuati on inhaler 11-05 00:00: 00 Yes [id number] 2{puff} Inhale 2 Puffs every 6 (six) hours as needed for Wheezing or Shortness of Breath. [facility] albuterol 90 mcg/actuati on inhaler 11-05 00:00: 00 Yes [id number] 2{puff} Inhale 2 Puffs every 6 (six) hours as needed for Wheezing or Shortness of Breath. [facility] albuterol 90 mcg/actuati on inhaler 11-05 00:00: 00 Yes [id number] 2{puff} Inhale 2 Puffs every 6 (six) hours as needed for Wheezing or Shortness of Breath. [facility] albuterol 90 mcg/actuati on inhaler 11-05 00:00: 00 Yes [id number] 2{puff} Inhale 2 Puffs every 6 (six) hours as needed for Wheezing or Shortness of Breath. [facility] albuterol 90 mcg/actuati on inhaler 11-05 00:00: 00 Yes [id number] 2{puff} Inhale 2 Puffs every 6 (six) hours as needed for Wheezing or Shortness of Breath. [facility] albuterol 90 mcg/actuati on inhaler 11-05 00:00: 00 Yes [id number] 2{puff} Inhale 2 Puffs every 6 (six) hours as needed for Wheezing or Shortness of Breath. [facility] albuterol 90 mcg/actuati on inhaler 11-05 00:00: 00 Yes [id number] 2{puff} Inhale 2 Puffs every 6 (six) hours as needed for Wheezing or Shortness of Breath. [facility] albuterol 90 mcg/actuati on inhaler 11-05 00:00: 00 Yes [id number] 2{puff} Inhale 2 Puffs every 6 (six) hours as needed for Wheezing or Shortness of Breath. [facility] albuterol 90 mcg/actuati on inhaler 11-05 00:00: 00 Yes [id number] 2{puff} Inhale 2 Puffs every 6 (six) hours as needed for Wheezing or Shortness of Breath. [facility] Budesonide 90 mcg/actuati on aerosol powder 11-05 00:00: 00 Yes [id number] 1{puff} Inhale 1 Puff every morning and evening. [facility] HYDROcodone -acetaminop hen 5-325 mg tablet 11-05 00:00: 00 Yes [id number] 1{tbl} Take 1 tablet by mouth every 6 (six) hours as needed for Pain (scale 4-6). Indication s: acute pain [facility] albuterol 90 mcg/actuati on inhaler 11-05 00:00: 00 Yes [id number] 2{puff} Inhale 2 Puffs every 6 (six) hours as needed for Wheezing or Shortness of Breath. [facility] albuterol 90 mcg/actuati on inhaler 11-05 00:00: 00 Yes [id number] 2{puff} Inhale 2 Puffs every 6 (six) hours as needed for Wheezing or Shortness of Breath. [facility] albuterol 90 mcg/actuati on inhaler 11-05 00:00: 00 Yes [id number] 2{puff} Inhale 2 Puffs every 6 (six) hours as needed for Wheezing or Shortness of Breath. [facility] albuterol 90 mcg/actuati on inhaler 11-05 00:00: 00 Yes [id number] 2{puff} Inhale 2 Puffs every 6 (six) hours as needed for Wheezing or Shortness of Breath. [facility] albuterol 90 mcg/actuati on inhaler 11-05 00:00: 00 Yes [id number] 2{puff} Inhale 2 Puffs every 6 (six) hours as needed for Wheezing or Shortness of Breath. [facility] albuterol 90 mcg/actuati on inhaler 11-05 00:00: 00 Yes [id number] 2{puff} Inhale 2 Puffs every 6 (six) hours as needed for Wheezing or Shortness of Breath. [facility] albuterol 90 mcg/actuati on inhaler 11-05 00:00: 00 Yes [id number] 2{puff} Inhale 2 Puffs every 6 (six) hours as needed for Wheezing or Shortness of Breath. [facility] albuterol 90 mcg/actuati on inhaler 11-05 00:00: 00 Yes [id number] 2{puff} Inhale 2 Puffs every 6 (six) hours as needed for Wheezing or Shortness of Breath. [facility] albuterol 90 mcg/actuati on inhaler 11-05 00:00: 00 Yes [id number] 2{puff} Inhale 2 Puffs every 6 (six) hours as needed for Wheezing or Shortness of Breath. [facility] albuterol 90 mcg/actuati on inhaler 11-05 00:00: 00 Yes [id number] 2{puff} Inhale 2 Puffs every 6 (six) hours as needed for Wheezing or Shortness of Breath. [facility] albuterol 90 mcg/actuati on inhaler 11-05 00:00: 00 Yes [id number] 2{puff} Inhale 2 Puffs every 6 (six) hours as needed for Wheezing or Shortness of Breath. [facility] albuterol 90 mcg/actuati on inhaler 11-05 00:00: 00 Yes [id number] 2{puff} Inhale 2 Puffs every 6 (six) hours as needed for Wheezing or Shortness of Breath. [facility] albuterol 90 mcg/actuati on inhaler 11-05 00:00: 00 Yes [id number] 2{puff} Inhale 2 Puffs every 6 (six) hours as needed for Wheezing or Shortness of Breath. [facility] albuterol 90 mcg/actuati on inhaler 11-05 00:00: 00 Yes [id number] 2{puff} Inhale 2 Puffs every 6 (six) hours as needed for Wheezing or Shortness of Breath. [facility] albuterol 90 mcg/actuati on inhaler 11-05 00:00: 00 Yes [id number] 2{puff} Inhale 2 Puffs every 6 (six) hours as needed for Wheezing or Shortness of Breath. [facility] albuterol 90 mcg/actuati on inhaler 11-05 00:00: 00 Yes [id number] 2{puff} Inhale 2 Puffs every 6 (six) hours as needed for Wheezing or Shortness of Breath. [facility] albuterol 90 mcg/actuati on inhaler 11-05 00:00: 00 Yes [id number] 2{puff} Inhale 2 Puffs every 6 (six) hours as needed for Wheezing or Shortness of Breath. [facility] albuterol 90 mcg/actuati on inhaler 11-05 00:00: 00 Yes [id number] 2{puff} Inhale 2 Puffs every 6 (six) hours as needed for Wheezing or Shortness of Breath. [facility] albuterol 90 mcg/actuati on inhaler 11-05 00:00: 00 Yes [id number] 2{puff} Inhale 2 Puffs every 6 (six) hours as needed for Wheezing or Shortness of Breath. [facility] Budesonide 90 mcg/actuati on aerosol powder 11-05 00:00: 00 Yes [id number] 1{puff} Inhale 1 Puff every morning and evening. [facility] albuterol 90 mcg/actuati on inhaler 11-05 00:00: 00 Yes [id number] 2{puff} Inhale 2 Puffs every 6 (six) hours as needed for Wheezing or Shortness of Breath. [facility] albuterol 90 mcg/actuati on inhaler 11-05 00:00: 00 Yes [id number] 2{puff} Inhale 2 Puffs every 6 (six) hours as needed for Wheezing or Shortness of Breath. [facility] albuterol 90 mcg/actuati on inhaler 11-05 00:00: 00 Yes [id number] 2{puff} Inhale 2 Puffs every 6 (six) hours as needed for Wheezing or Shortness of Breath. [facility] albuterol 90 mcg/actuati on inhaler 11-05 00:00: 00 Yes [id number] 2{puff} Inhale 2 Puffs every 6 (six) hours as needed for Wheezing or Shortness of Breath. [facility] albuterol 90 mcg/actuati on inhaler 11-05 00:00: 00 Yes [id number] 2{puff} Inhale 2 Puffs every 6 (six) hours as needed for Wheezing or Shortness of Breath. [facility] HYDROcodone -acetaminop hen 5-325 mg tablet 11-05 00:00: 00 Yes [id number] 1{tbl} Take 1 tablet by mouth every 6 (six) hours as needed for Pain (scale 4-6). Indication s: acute pain [facility] albuterol 90 mcg/actuati on inhaler 11-05 00:00: 00 Yes [id number] 2{puff} Inhale 2 Puffs every 6 (six) hours as needed for Wheezing or Shortness of Breath. [facility] albuterol 90 mcg/actuati on inhaler 11-05 00:00: 00 Yes [id number] 2{puff} Inhale 2 Puffs every 6 (six) hours as needed for Wheezing or Shortness of Breath. [facility] albuterol 90 mcg/actuati on inhaler 11-05 00:00: 00 Yes [id number] 2{puff} Inhale 2 Puffs every 6 (six) hours as needed for Wheezing or Shortness of Breath. [facility] albuterol 90 mcg/actuati on inhaler 11-05 00:00: 00 Yes [id number] 2{puff} Inhale 2 Puffs every 6 (six) hours as needed for Wheezing or Shortness of Breath. [facility] albuterol 90 mcg/actuati on inhaler 11-05 00:00: 00 Yes [id number] 2{puff} Inhale 2 Puffs every 6 (six) hours as needed for Wheezing or Shortness of Breath. [facility] albuterol 90 mcg/actuati on inhaler 11-05 00:00: 00 Yes [id number] 2{puff} Inhale 2 Puffs every 6 (six) hours as needed for Wheezing or Shortness of Breath. [facility] albuterol 90 mcg/actuati on inhaler 11-05 00:00: 00 Yes [id number] 2{puff} Inhale 2 Puffs every 6 (six) hours as needed for Wheezing or Shortness of Breath. [facility] albuterol 90 mcg/actuati on inhaler 11-05 00:00: 00 Yes [id number] 2{puff} Inhale 2 Puffs every 6 (six) hours as needed for Wheezing or Shortness of Breath. [facility] albuterol 90 mcg/actuati on inhaler 11-05 00:00: 00 Yes [id number] 2{puff} Inhale 2 Puffs every 6 (six) hours as needed for Wheezing or Shortness of Breath. [facility] albuterol 90 mcg/actuati on inhaler 11-05 00:00: 00 Yes [id number] 2{puff} Inhale 2 Puffs every 6 (six) hours as needed for Wheezing or Shortness of Breath. [facility] albuterol 90 mcg/actuati on inhaler 11-05 00:00: 00 Yes [id number] 2{puff} Inhale 2 Puffs every 6 (six) hours as needed for Wheezing or Shortness of Breath. [facility] albuterol 90 mcg/actuati on inhaler 11-05 00:00: 00 Yes [id number] 2{puff} Inhale 2 Puffs every 6 (six) hours as needed for Wheezing or Shortness of Breath. [facility] albuterol 90 mcg/actuati on inhaler 11-05 00:00: 00 Yes [id number] 2{puff} Inhale 2 Puffs every 6 (six) hours as needed for Wheezing or Shortness of Breath. [facility] albuterol 90 mcg/actuati on inhaler 11-05 00:00: 00 Yes [id number] 2{puff} Inhale 2 Puffs every 6 (six) hours as needed for Wheezing or Shortness of Breath. [facility] albuterol 90 mcg/actuati on inhaler 11-05 00:00: 00 Yes [id number] 2{puff} Inhale 2 Puffs every 6 (six) hours as needed for Wheezing or Shortness of Breath. [facility] albuterol 90 mcg/actuati on inhaler 11-05 00:00: 00 Yes [id number] 2{puff} Inhale 2 Puffs every 6 (six) hours as needed for Wheezing or Shortness of Breath. [facility] albuterol 90 mcg/actuati on inhaler 11-05 00:00: 00 Yes [id number] 2{puff} Inhale 2 Puffs every 6 (six) hours as needed for Wheezing or Shortness of Breath. [facility] albuterol 90 mcg/actuati on inhaler 11-05 00:00: 00 Yes [id number] 2{puff} Inhale 2 Puffs every 6 (six) hours as needed for Wheezing or Shortness of Breath. [facility] albuterol 90 mcg/actuati on inhaler 11-05 00:00: 00 Yes [id number] 2{puff} Inhale 2 Puffs every 6 (six) hours as needed for Wheezing or Shortness of Breath. [facility] albuterol 90 mcg/actuati on inhaler 11-05 00:00: 00 Yes [id number] 2{puff} Inhale 2 Puffs every 6 (six) hours as needed for Wheezing or Shortness of Breath. [facility] albuterol 90 mcg/actuati on inhaler 11-05 00:00: 00 Yes [id number] 2{puff} Inhale 2 Puffs every 6 (six) hours as needed for Wheezing or Shortness of Breath. [facility] albuterol 90 mcg/actuati on inhaler 11-05 00:00: 00 Yes [id number] 2{puff} Inhale 2 Puffs every 6 (six) hours as needed for Wheezing or Shortness of Breath. [facility] albuterol 90 mcg/actuati on inhaler 11-05 00:00: 00 Yes [id number] 2{puff} Inhale 2 Puffs every 6 (six) hours as needed for Wheezing or Shortness of Breath. [facility] albuterol 90 mcg/actuati on inhaler 11-05 00:00: 00 Yes [id number] 2{puff} Inhale 2 Puffs every 6 (six) hours as needed for Wheezing or Shortness of Breath. [facility] albuterol 90 mcg/actuati on inhaler 11-05 00:00: 00 Yes [id number] 2{puff} Inhale 2 Puffs every 6 (six) hours as needed for Wheezing or Shortness of Breath. [facility] albuterol 90 mcg/actuati on inhaler 11-05 00:00: 00 Yes [id number] 2{puff} Inhale 2 Puffs every 6 (six) hours as needed for Wheezing or Shortness of Breath. [facility] albuterol 90 mcg/actuati on inhaler 11-05 00:00: 00 Yes [id number] 2{puff} Inhale 2 Puffs every 6 (six) hours as needed for Wheezing or Shortness of Breath. [facility] albuterol 90 mcg/actuati on inhaler 11-05 00:00: 00 Yes [id number] 2{puff} Inhale 2 Puffs every 6 (six) hours as needed for Wheezing or Shortness of Breath. [facility] albuterol 90 mcg/actuati on inhaler 11-05 00:00: 00 Yes [id number] 2{puff} Inhale 2 Puffs every 6 (six) hours as needed for Wheezing or Shortness of Breath. [facility] albuterol 90 mcg/actuati on inhaler 11-05 00:00: 00 Yes [id number] 2{puff} Inhale 2 Puffs every 6 (six) hours as needed for Wheezing or Shortness of Breath. [facility] Budesonide 90 mcg/actuati on aerosol powder 11-05 00:00: 00 12-16 00:00 :00 No [id number] 1{puff} Inhale 1 Puff every morning and evening. [facility] HYDROcodone -acetaminop hen 5-325 mg tablet 11-05 00:00: 00 12-16 00:00 :00 No [id number] 1{tbl} Take 1 tablet by mouth every 6 (six) hours as needed for Pain (scale 4-6). Indication s: acute pain [facility] gabapentin 300 mg capsule 11-05 00:00: 00 12-06 04:59 :00 No [id number] 300mg Take 1 capsule by mouth 2 (two) times daily for 30 days. [facility] gabapentin 300 mg capsule 11-05 00:00: 00 12-06 04:59 :00 No [id number] 300mg Take 1 capsule by mouth 2 (two) times daily for 30 days. [facility] azithromyci n 500 mg tablet 11-05 00:00: 00 11-08 04:59 :00 No [id number] 500mg Take 1 tablet by mouth daily for 2 doses. [facility] azithromyci n 500 mg tablet 11-05 00:00: 00 11-08 04:59 :00 No [id number] 500mg Take 1 tablet by mouth daily for 2 doses. [facility] enoxaparin (LOVENOX) injection 30 mg 11-04 22:00: 00 Yes 30mg 30 mg, Subcutaneo us, DAILY, First dose on Tue11/04/21 at 1700, Until Discontinu ed, Routine [facility] sulfur hexafluorid e microsphr (LUMASON) injection 5 mL 11-04 17:45: 00 11-04 17:45 :00 No [id number] 5mL 5 mL, Intravenou s, ONCE, 1 dose, On Tue11/04/21 at 1245, Routine
committee member approving Restricted medication : ERIC ARANA [facility] predniSONE (DELTASONE) tablet 50 mg 11-04 17:00: 00 Yes 50mg 50 mg, Oral, QNOON, First dose on Tue11/04/21 at 1200, Until Discontinu ed, Routine [facility] morpHINE injection 2 mg 11-04 16:15: 00 11-04 15:22 :00 No 2mg 2 mg, Slow IV Push, ONCE, 1 dose, On Tue11/04/21 at 1115, Routine [facility] HYDROcodone -acetaminop hen (NORCO 5) 5-325 mg tablet 1 tablet 11-04 15:06: 46 Yes 1{tbl} 1 tablet, Oral, Q6HPRN, Starting on Tue11/04/21 at 1006, Until Discontinu ed, Routine, Pain (scale 4-6) [facility] metoprolol succinate XL (TOPROL XL) tablet 25 mg 11-04 14:00: 00 Yes 25mg 25 mg, Oral, DAILY, First dose on Tue11/04/21 at 0900, Until Discontinu ed, Routine [facility] azithromyci n (ZITHROMAX) 500 mg in [...] y
Durat ion of therapy: 7 days [facility] aspirin E.C. (ECOTRIN) tablet 325 mg 11-04 08:30: 00 Yes 325mg 325 mg, Oral, QAM WITH BREAKFAST, First dose on Tue11/04/21 at 0330, Until Discontinu ed, Routine [facility] budesonide (PULMICORT RESPULE) nebulizer solution 0.5 mg 11-04 08:00: 00 Yes .5mg 0.5 mg, Inhalation , BID, First dose on Tue11/04/21 at 0300, Until Discontinu ed, Routine [facility] ipratropium -albuteroL (DUONEB) 0.5 mg-3 mg(2.5 mg base)/3 mL nebulizer solution 3 mL 11-04 08:00: 00 Yes 3mL 3 mL, Inhalation , Q4H, First dose (after last reorder) on Tue11/04/21 at 0300, Until Discontinu ed, Routine [facility] gabapentin (NEURONTIN) capsule 300 mg 11-04 08:00: 00 Yes 300mg 300 mg, Oral, BID, First dose on Tue11/04/21 at 0300, Until Discontinu ed, Routine [facility] docusate (COLACE) capsule 100 mg 11-04 08:00: 00 Yes 100mg 100 mg, Oral, BID, First dose on Tue11/04/21 at 0300, Until Discontinu ed, Routine [facility] ondansetron (ZOFRAN (PF)) injection 4 mg 11-04 07:56: 12 Yes 4mg 4 mg, Slow IV Push, Q6HPRN, Starting on Tue11/04/21 at 0256, Until Discontinu ed, Routine, Nausea and Vomiting (N/V) [facility] ipratropium -albuteroL (DUONEB) 0.5 mg-3 mg(2.5 mg base)/3 mL nebulizer solution 3 mL 11-04 04:45: 00 11-04 03:59 :00 No 3mL 3 mL, Inhalation , ONCE, 1 dose, On Tue11/03/21 at 2345, Routine [facility] methylpredn isolone sod succ (SOLU-MEDRO L) injection 125 mg 11-04 04:45: 00 11-04 04:59 :00 No 125mg 125 mg, IV Piggyback, ONCE, 1 dose, On Tue11/03/21 at 2345, LARRY [facility] Dose Unknown - 00:00: 00 No Dose Unknown 28 00:00: 00 No Dulera 100 mcg-5 mcg/actuati on HFA aerosol inhaler 09-28 00:00: 00 No 2mcg/ac tuation Dulera 200 mcg-5 mcg/actuati on HFA aerosol inhaler 16 00:00: 00 No 1mcg/ac tuation Dose Unknown -16 00:00: 00 No prednisone 20 mg tablet -16 00:00: 00 No mg prednisone 20 mg tablet -16 00:00: 00 No mg Bromfed DM 2 mg-30 mg-10 mg/5 mL oral syrup 2-16 00:00: 00 No 5mg/5 mL Bromfed DM 2 mg-30 mg-10 mg/5 mL oral syrup -16 00:00: 00 No 5mg/5 mL Dulera 200 mcg-5 mcg/actuati on HFA aerosol inhaler -16 00:00: 00 No 1mcg/ac tuation Dose Unknown 0 2-16 00:00: 00 No prednisone 20 mg tablet 0 2-16 00:00: 00 No mg prednisone 20 mg tablet 0 2-16 00:00: 00 No mg Bromfed DM 2 mg-30 mg-10 mg/5 mL oral syrup 0 2-16 00:00: 00 No 5mg/5 mL Bromfed DM 2 mg-30 mg-10 mg/5 mL oral syrup 0 2-16 00:00: 00 No 5mg/5 mL Dulera 200 mcg-5 mcg/actuati on HFA aerosol inhaler 0 2-16 00:00: 00 No 1mcg/ac tuation Dulera 200 mcg-5 mcg/actuati on HFA aerosol inhaler 0 2-16 00:00: 00 No 1mcg/ac tuation prednisone 20 mg tablet 0 2-16 00:00: 00 No mg prednisone 20 mg tablet 0 2-16 00:00: 00 No mg Bromfed DM 2 mg-30 mg-10 mg/5 mL oral syrup 0 2-16 00:00: 00 No 5mg/5 mL Bromfed DM 2 mg-30 mg-10 mg/5 mL oral syrup 0 2-16 00:00: 00 No 5mg/5 mL benzonatate 100 mg capsule 0 2-13 00:00: 00 No mg Dose Unknown 0 2-13 00:00: 00 No benzonatate 100 mg capsule 0 2-13 00:00: 00 No mg Dose Unknown 0 2-13 00:00: 00 No benzonatate 100 mg capsule 0 2-13 00:00: 00 No mg albuterol sulfate 2.5 mg/3 mL (0.083 %) solution for nebulizatio n 0 2-13 00:00: 00 No /3 mL (0.083 %) prednisone 20 mg tablet 0 1-25 00:00: 00 No mg levofloxaci n 500 mg tablet 0 1-25 00:00: 00 No mg codeine 10 mg-guaifene sin 100 mg/5 mL oral liquid 08-25 00:00: 00 No mg/5 mL prednisone 20 mg tablet 08-25 00:00: 00 No mg levofloxaci n 500 mg tablet 08-25 00:00: 00 No mg codeine 10 mg-guaifene sin 100 mg/5 mL oral liquid 08-25 00:00: 00 No mg/5 mL prednisone 20 mg tablet 08-25 00:00: 00 No mg levofloxaci n 500 [...] No mg azithromyci n 250 mg tablet 18 00:00: 00 No mg promethazin e-DM 6.25 mg-15 mg/5 mL syrup 18 00:00: 00 No 5mg/5 mL hydrochloro thiazide 25 mg tablet 12 00:00: 00 No 1mg meloxicam 7.5 mg tablet 09-12 00:00: 00 No 1mg hydrochloro thiazide 25 mg tablet 09-12 00:00: 00 No 1mg meloxicam 7.5 mg tablet 09-12 00:00: 00 No 1mg hydrochloro thiazide 25 mg tablet 09-12 00:00: 00 No 1mg meloxicam 7.5 mg tablet 09-12 00:00: 00 No 1mg hydrochloro thiazide 25 mg tablet 2 00:00: 00 No 1mg meloxicam 7.5 mg tablet 2 00:00: 00 No 1mg prednisone 20 mg tablet 2 00:00: 00 No mg hydrochloro thiazide 25 mg tablet 2 00:00: 00 No 1mg meloxicam 7.5 mg tablet 2 00:00: 00 No 1mg prednisone 20 mg tablet 205 00:00: 00 No mg hydrochloro thiazide 25 mg tablet 2 00:00: 00 No 1mg meloxicam 7.5 mg tablet 2 00:00: 00 No 1mg prednisone 20 mg tablet 205 00:00: 00 No mg prednisone 20 mg tablet 10-11 00:00: 00 [...] 6 MO-64 YRS (FLUCELVAX) 2021-12-17 00:00:00 Completed [facility] Influenza Virus Vaccine Quad IM, Preserv and ABX Free 6 MO-64 YRS (FLUCELVAX) 2021-12-17 00:00:00 Completed [facility] Influenza Virus Vaccine Quad IM, Preserv and ABX Free 6 MO-64 YRS (FLUCELVAX) 2021-12-17 00:00:00 Completed [facility] Influenza Virus Vaccine Quad IM, Preserv and ABX Free 6 MO-64 YRS (FLUCELVAX) 2021-12-17 00:00:00 Completed [facility] Influenza Virus Vaccine Quad IM, Preserv and ABX Free 6 MO-64 YRS (FLUCELVAX) 2021-12-17 00:00:00 Completed [facility] Influenza Virus Vaccine Quad IM, Preserv and ABX Free 6 MO-64 YRS (FLUCELVAX) 2021-12-17 00:00:00 Completed [facility] Influenza Virus Vaccine Quad IM, Preserv and ABX Free 6 MO-64 YRS (FLUCELVAX) 2021-12-17 00:00:00 Completed [facility] Influenza Virus Vaccine Quad IM, Preserv and ABX Free 6 MO-64 YRS (FLUCELVAX) 2021-12-17 00:00:00 Completed [facility] Influenza Virus Vaccine Quad IM, Preserv and ABX Free 6 MO-64 YRS (FLUCELVAX) 2021-12-17 00:00:00 Completed [facility] Influenza Virus Vaccine Quad IM, Preserv and ABX Free 6 MO-64 YRS (FLUCELVAX) 2021-12-17 00:00:00 Completed [facility] Influenza Virus Vaccine Quad IM, Preserv and ABX Free 6 MO-64 YRS (FLUCELVAX) 2021-12-17 00:00:00 Completed [facility] Influenza Virus Vaccine Quad IM, Preserv and ABX Free 6 MO-64 YRS (FLUCELVAX) 2021-12-17 00:00:00 Completed [facility] Influenza Virus Vaccine Quad IM, Preserv and ABX Free 6 MO-64 YRS (FLUCELVAX) 2021-12-17 00:00:00 Completed [facility] Influenza Virus Vaccine Quad IM, Preserv and ABX Free 6 MO-64 YRS (FLUCELVAX) 2021-12-17 00:00:00 Completed [facility] Influenza Virus Vaccine Quad IM, Preserv and ABX Free 6 MO-64 YRS (FLUCELVAX) 2021-12-17 00:00:00 Completed [facility] Influenza Virus Vaccine Quad IM, Preserv and ABX Free 6 MO-64 YRS (FLUCELVAX) 2021-12-17 00:00:00 Completed [facility] Influenza Virus Vaccine Quad IM, Preserv and ABX Free 6 MO-64 YRS 2021-12-17 00:00:00 Completed [facility] Influenza Virus Vaccine Quad IM, Preserv and ABX Free 6 MO-64 YRS 2021-12-17 00:00:00 Completed [facility] Influenza Virus Vaccine Quad IM, Preserv and ABX Free 6 MO-64 YRS 2021-12-17 00:00:00 Completed [facility] Influenza Virus Vaccine Quad IM, Preserv and ABX Free 6 MO-64 YRS 2021-12-17 00:00:00 Completed [facility] Influenza Virus Vaccine Quad IM, Preserv and ABX Free 6 MO-64 YRS 2021-12-17 00:00:00 Completed [facility] Influenza Virus Vaccine Quad IM, Preserv and ABX Free 6 MO-64 YRS 2021-12-17 00:00:00 Completed [facility] Influenza Virus Vaccine Quad IM, Preserv and ABX Free 6 MO-64 YRS 2021-12-17 00:00:00 Completed [facility] Influenza Virus Vaccine Quad IM, Preserv and ABX Free 6 MO-64 YRS 2021-12-17 00:00:00 Completed [facility] Influenza Virus Vaccine Quad IM, Preserv and ABX Free 6 MO-64 YRS 2021-12-17 00:00:00 Completed [facility] Influenza Virus Vaccine Quad IM, Preserv and ABX Free 6 MO-64 YRS 2021-12-17 00:00:00 Completed [facility] Influenza Virus Vaccine Quad IM, Preserv and ABX Free 6 MO-64 YRS 2021-12-17 00:00:00 Completed [facility] Influenza Virus Vaccine Quad IM, Preserv and ABX Free 6 MO-64 YRS 2021-12-17 00:00:00 Completed [facility] Influenza Virus Vaccine Quad IM, Preserv and ABX Free 6 MO-64 YRS 2021-12-17 00:00:00 Completed [facility] Influenza Virus Vaccine Quad IM, Preserv and ABX Free 6 MO-64 YRS 2021-12-17 00:00:00 Completed [facility] Influenza Virus Vaccine Quad IM, Preserv and ABX Free 6 MO-64 YRS 2021-12-17 00:00:00 Completed [facility] Influenza Virus Vaccine Quad IM, Preserv and ABX Free 6 MO-64 YRS 2021-12-17 00:00:00 Completed [facility] Influenza Virus Vaccine Quad IM, Preserv and ABX Free 6 MO-64 YRS 2021-12-17 00:00:00 Completed [facility] Influenza Virus Vaccine Quad IM, Preserv and ABX Free 6 MO-64 YRS 2021-12-17 00:00:00 Completed [facility] Influenza Virus Vaccine Quad IM, Preserv and ABX Free 6 MO-64 YRS 2021-12-17 00:00:00 Completed [facility] Influenza Virus Vaccine Quad IM, Preserv and ABX Free 6 MO-64 YRS 2021-12-17 00:00:00 Completed [facility] Influenza Virus Vaccine Quad IM, Preserv and ABX Free 6 MO-64 YRS 2021-12-17 00:00:00 Completed [facility] Influenza Virus Vaccine Quad IM, Preserv and ABX Free 6 MO-64 YRS 2021-12-17 00:00:00 Completed [facility] Influenza Virus Vaccine Quad IM, Preserv and ABX Free 6 MO-64 YRS 2021-12-17 00:00:00 Completed [facility] Influenza Virus Vaccine Quad IM, Preserv and ABX Free 6 MO-64 YRS 2021-12-17 00:00:00 Completed [facility] Influenza Virus Vaccine Quad IM, Preserv and ABX Free 6 MO-64 YRS 2021-12-17 00:00:00 Completed [facility] Influenza Virus Vaccine Quad IM, Preserv and ABX Free 6 MO-64 2021-12-17 00:00:00 Completed [facility] Influenza Virus Vaccine Quad IM, Preserv and ABX Free 6 MO-64 YRS 2021-12-17 00:00:00 Completed [facility] Influenza Virus Vaccine Quad IM, Preserv and ABX Free 6 MO-64 YRS 2021-12-17 00:00:00 Completed [facility] Influenza Virus Vaccine Quad IM, Preserv and ABX Free 6 MO-64 YRS 2021-12-17 00:00:00 Completed [facility] Influenza Virus Vaccine Quad IM, Preserv and ABX Free 6 MO-64 YRS 2021-12-17 00:00:00 Completed [facility] Influenza Virus Vaccine Quad IM, Preserv and ABX Free 6 MO-64 YRS 2021-12-17 00:00:00 Completed [facility] Influenza Virus Vaccine Quad IM, Preserv and ABX Free 6 MO-64 YRS 2021-12-17 00:00:00 Completed [facility] Influenza Virus Vaccine Quad IM, Preserv and ABX Free 6 MO-64 YRS 2021-12-17 00:00:00 Completed [facility] Influenza Virus Vaccine Quad IM, Preserv and ABX Free 6 MO-64 YRS 2021-12-17 00:00:00 Completed [facility] Influenza Virus Vaccine Quad IM, Preserv and ABX Free MO-64 YRS 2021-12-17 00:00:00 Completed [facility] Influenza Virus Vaccine Quad IM, Preserv and ABX Free 6 MO-64 YRS 2021-12-17 00:00:00 Completed [facility] Influenza Virus Vaccine Quad IM, Preserv and ABX Free 6 MO-64 YRS 2021-12-17 00:00:00 Completed [facility] Influenza Virus Vaccine Quad IM, Preserv and ABX Free 6 MO-64 YRS 2021-12-17 00:00:00 Completed [facility] Influenza Virus Vaccine Quad IM, Preserv and ABX Free 6 MO-64 YRS 2021-12-17 00:00:00 Completed [facility] Influenza Virus Vaccine Quad IM, Preserv and ABX Free 6 MO-64 YRS 2021-12-17 00:00:00 Completed [facility] Influenza Virus Vaccine Quad IM, Preserv and ABX Free 6 MO-64 YRS 2021-12-17 00:00:00 Completed [facility] Influenza Virus Vaccine Quad IM, Preserv and ABX Free 6 MO-64 YRS 2021-12-17 00:00:00 Completed [facility] Influenza Virus Vaccine Quad IM, Preserv and ABX Free 6 MO-64 YRS 2021-12-17 00:00:00 Completed [facility] Influenza Virus Vaccine Quad IM, Preserv and ABX Free 6 MO-64 YRS 2021-12-17 00:00:00 Completed [facility] Influenza Virus Vaccine Quad IM, Preserv and ABX Free 6 MO-64 YRS 2021-12-17 00:00:00 Completed [facility] Influenza Virus Vaccine Quad IM, Preserv and ABX Free 6 MO-64 YRS 2021-12-17 00:00:00 Completed [facility] Influenza Virus Vaccine Quad IM, Preserv and ABX Free 6 MO-64 YRS 2021-12-17 00:00:00 Completed [facility] Influenza Virus Vaccine Quad IM, Preserv and ABX Free 6 MO-64 YRS 2021-12-17 00:00:00 Completed [facility] Influenza Virus Vaccine Quad IM, Preserv and ABX Free 6 MO-64 YRS 2021-12-17 00:00:00 Completed [facility] Influenza Virus Vaccine Quad IM, Preserv and ABX Free 6 MO-64 YRS 2021-12-17 00:00:00 Completed [facility] Influenza Virus Vaccine Quad IM, Preserv and ABX Free 6 MO-64 YRS 2021-12-17 00:00:00 Completed [facility] Influenza Virus Vaccine Quad IM, Preserv and ABX Free 6 MO-64 YRS 2021-12-17 00:00:00 Completed [facility] Influenza Virus Vaccine Quad IM, Preserv and ABX Free 6 MO-64 YRS 2021-12-17 00:00:00 Completed [facility] Influenza Virus Vaccine Quad IM, Preserv and ABX Free 6 MO-64 YRS (FLUCELVAX) Unknown Completed [facility] Influenza Virus Vaccine Quad IM, Preserv and ABX Free 6 MO-64 YRS (FLUCELVAX) Unknown Completed [facility] Influenza Virus Vaccine Quad IM, Preserv and ABX Free 6 MO-64 YRS (FLUCELVAX) Unknown Completed [facility] Influenza Virus Vaccine Quad IM, Preserv and ABX Free 6 MO-64 YRS (FLUCELVAX) Unknown Completed [facility] Influenza Virus Vaccine Quad IM, Preserv and ABX Free 6 MO-64 YRS (FLUCELVAX) Unknown Completed [facility] Influenza Virus Vaccine Quad IM, Preserv and ABX Free 6 MO-64 YRS (FLUCELVAX) Unknown Completed [facility] Influenza Virus Vaccine Quad IM, Preserv and ABX Free 6 MO-64 YRS (FLUCELVAX) Unknown Completed [facility] Influenza Virus Vaccine Quad IM, Preserv and ABX Free 6 MO-64 YRS (FLUCELVAX) Unknown Completed [facility] Influenza Virus Vaccine Quad IM, Preserv and ABX Free 6 MO-64 YRS (FLUCELVAX) Unknown Completed [facility] Influenza Virus Vaccine Quad IM, Preserv and ABX Free 6 MO-64 YRS (FLUCELVAX) Unknown Completed [facility] Influenza Virus Vaccine Quad IM, Preserv and ABX Free 6 MO-64 YRS (FLUCELVAX) Unknown Completed [facility] Influenza Virus Vaccine Quad IM, Preserv and ABX Free 6 MO-64 YRS (FLUCELVAX) Unknown Completed [facility] Influenza Virus Vaccine Quad IM, Preserv and ABX Free 6 MO-64 YRS (FLUCELVAX) Unknown Completed [facility] Vital Signs Vital Name Observation Time Observation Value Comments S ource Systolic blood pressure 2023-07-11 16:56:00 117 mm[Hg] [facility] Diastolic blood pressure 2023-07-11 16:56:00 76 mm[Hg] [facility] Heart rate 2023-07-11 16:56:00 97 /min [facility] Body temperature 2023-07-11 16:56:00 36.11 Lesley [facility] Body height 2023-07-11 16:56:00 180.3 cm [facility] Body weight 2023-07-11 16:56:00 90.22 kg [facility] BMI 2023-07-11 16:56:00 27.74 kg/m2 [facility] Oxygen saturation in Arterial blood by Pulse oximetry 2023-07-11 16:56:00 90 /min pt uses tank - this was w/room air no tank [facility] Systolic blood pressure 2023-04-27 21:00:00 143 mm[Hg] [facility] Diastolic blood pressure 2023-04-27 21:00:00 90 mm[Hg] [facility] Heart rate 2023-04-27 21:00:00 94 /min [facility] Body temperature 2023-04-27 21:00:00 36.89 Lesley [facility] Respiratory rate 2023-04-27 21:00:00 20 /min [facility] Oxygen saturation in Arterial blood by Pulse oximetry 2023-04-27 21:00:00 98 /min [facility] Systolic blood pressure 2023-04-22 21:00:00 165 mm[Hg] [facility] Diastolic blood pressure 2023-04-22 21:00:00 92 mm[Hg] [facility] Oxygen saturation in Arterial blood by Pulse oximetry 2023-04-22 21:00:00 93 /min [facility] Heart rate 2023-04-22 20:00:00 97 /min [facility] Respiratory rate 2023-04-22 18:41:00 20 /min [facility] Body temperature 2023-04-22 13:01:00 36.67 Lesley [facility] Systolic blood pressure 2023-04-14 18:15:00 107 mm[Hg] [facility] Diastolic blood pressure 2023-04-14 18:15:00 75 mm[Hg] [facility] Heart rate 2023-04-14 18:15:00 89 /min [facility] Oxygen saturation in Arterial blood by Pulse oximetry 2023-04-14 18:15:00 91 /min [facility] Respiratory rate 2023-04-14 18:00:00 16 /min [facility] Body temperature 2023-04-14 13:40:00 36.78 Lesley [facility] Systolic blood pressure 2023-04-11 14:11:00 139 mm[Hg] [facility] Diastolic blood pressure 2023-04-11 14:11:00 78 mm[Hg] [facility] Heart rate 2023-04-11 14:11:00 105 /min [facility] Body temperature 2023-04-11 14:11:00 37.22 Lesley [facility] Respiratory rate 2023-04-11 14:11:00 18 /min [facility] Body height 2023-04-11 14:11:00 180.3 cm [facility] Body weight 2023-04-11 14:11:00 89.948 kg [facility] BMI 2023-04-11 14:11:00 27.66 kg/m2 [facility] Oxygen saturation in Arterial blood by Pulse oximetry 2023-04-11 14:11:00 91 /min [facility] Systolic blood pressure 2023-04-07 17:04:00 113 mm[Hg] [facility] Diastolic blood pressure 2023-04-07 17:04:00 67 mm[Hg] [facility] Heart rate 2023-04-07 17:04:00 97 /min [facility] Body temperature 2023-04-07 17:04:00 36.56 Lesley [facility] Respiratory rate 2023-04-07 17:04:00 20 /min [facility] Oxygen saturation in Arterial blood by Pulse oximetry 2023-04-07 17:04:00 94 /min [facility] Body height 2023-04-06 16:09:00 180.3 cm [facility] Body weight 2023-04-06 16:09:00 90.266 kg [facility] BMI 2023-04-06 16:09:00 27.75 kg/m2 [facility] Systolic blood pressure 2023-01-03 14:23:00 121 mm[Hg] [facility] Diastolic blood pressure 2023-01-03 14:23:00 72 mm[Hg] [facility] Heart rate 2023-01-03 14:23:00 91 /min [facility] Body temperature 2023-01-03 14:23:00 35 Lesley [facility] Respiratory rate 2023-01-03 14:23:00 20 /min [facility] Body height 2023-01-03 14:23:00 180.3 cm [facility] Body weight 2023-01-03 14:23:00 90.402 kg [facility] BMI 2023-01-03 14:23:00 27.80 kg/m2 [facility] Oxygen saturation in Arterial blood by Pulse oximetry 2023-01-03 14:23:00 95 /min [facility] Systolic blood pressure 2022-10-08 13:30:00 134 mm[Hg] [facility] Diastolic blood pressure 2022-10-08 13:30:00 85 mm[Hg] [facility] Heart rate 2022-10-08 13:30:00 100 /min [facility] Body temperature 2022-10-08 13:30:00 36.94 Lesley [facility] Respiratory rate 2022-10-08 13:30:00 20 /min [facility] Body height 2022-10-08 13:30:00 180.3 cm [facility] Body weight 2022-10-08 13:30:00 92.987 kg [facility] BMI 2022-10-08 13:30:00 28.59 kg/m2 [facility] Oxygen saturation in Arterial blood by Pulse oximetry 2022-10-08 13:30:00 94 /min on 2 LNC [facility] Systolic blood pressure 2022-10-04 16:19:00 126 mm[Hg] [facility] Diastolic blood pressure 2022-10-04 16:19:00 83 mm[Hg] [facility] Heart rate 2022-10-04 16:19:00 112 /min [facility] Body temperature 2022-10-04 16:19:00 36.22 Lesley [facility] Body height 2022-10-04 16:19:00 180.3 cm [facility] Body weight 2022-10-04 16:19:00 93.078 kg [facility] BMI 2022-10-04 16:19:00 28.62 kg/m2 [facility] Oxygen saturation in Arterial blood by Pulse oximetry 2022-10-04 16:19:00 91 /min patient states he sometimes uses oxygen - liter 2, will provide roxygen concetrator. [facility] Systolic blood pressure 2022-07-08 15:46:00 129 mm[Hg] [facility] Diastolic blood pressure 2022-07-08 15:46:00 89 mm[Hg] [facility] Heart rate 2022-07-08 15:46:00 113 /min [facility] Body temperature 2022-07-08 15:46:00 36.72 Lesley [facility] Body height 2022-07-08 15:46:00 180.3 cm [facility] Body weight 2022-07-08 15:46:00 97.024 kg [facility] BMI 2022-07-08 15:46:00 29.83 kg/m2 [facility] Oxygen saturation in Arterial blood by Pulse oximetry 2022-07-08 15:46:00 90 /min [facility] Systolic blood pressure 2022-05-20 16:17:00 138 mm[Hg] [facility] Diastolic blood pressure 2022-05-20 16:17:00 85 mm[Hg] [facility] Heart rate 2022-05-20 16:17:00 104 /min [facility] Body temperature 2022-05-20 16:17:00 36.22 Lesley [facility] Body height 2022-05-20 16:17:00 180.3 cm [facility] Body weight 2022-05-20 16:17:00 96.344 kg [facility] BMI 2022-05-20 16:17:00 29.62 kg/m2 [facility] Oxygen saturation in Arterial blood by Pulse oximetry 2022-05-20 16:17:00 88 /min [facility] Heart rate 2021-12-18 00:28:00 85 /min [facility] Respiratory rate 2021-12-18 00:28:00 18 /min [facility] Oxygen saturation in Arterial blood by Pulse oximetry 2021-12-18 00:28:00 98 /min [facility] Systolic blood pressure 2021-12-17 22:10:00 116 mm[Hg] [facility] Diastolic blood pressure 2021-12-17 22:10:00 79 mm[Hg] [facility] Body temperature 2021-12-17 22:10:00 36.11 Lesley [facility] Body height 2021-12-16 09:25:00 180.3 cm [facility] Body weight 2021-12-16 09:25:00 106.958 kg [facility] BMI 2021-12-16 09:25:00 32.89 kg/m2 [facility] Respiratory rate 2021-11-05 21:30:00 20 /min [facility] Oxygen saturation in Arterial blood by Pulse oximetry 2021-11-05 21:30:00 93 /min [facility] Systolic blood pressure 2021-11-05 16:16:00 116 mm[Hg] [facility] Diastolic blood pressure 2021-11-05 16:16:00 71 mm[Hg] [facility] Heart rate 2021-11-05 16:16:00 95 /min [facility] Body temperature 2021-11-05 16:16:00 36.28 Lesley [facility] Body weight 2021-11-05 09:32:00 100.971 kg [facility] BMI 2021-11-05 09:32:00 31.05 kg/m2 [facility] Body height 2021-11-04 17:37:00 180.3 cm [facility] BP Systolic 2022-07-01 16:15:00 116 mm[Hg] BP [...] Date / Time Performed Performing Clinician Source REFERRAL- REQUEST/RESPONSE 2023-09-23 06:01:00 Doctor Unassigned, [facility]all [facility] ASSIGNMENT OF BENEFITS 2023-07-18 16:55:46 Docto r Unassigned, [facility]dall [facility] CONSENT/REFUSAL FOR DIAGNOSIS AND TREATMENT 2023-07-18 16:55:26 Doctor Unassigned, [facility]all [facility] EKG-12 LEAD 2023-04-27 20:34:21 Kasie Persaud [facility] URINALYSIS 2023-04-27 19:29:00 Kasie Persaud [facility] XR CHEST 1 VW 2023-04-27 18:42:00 [facility] 2023-04-27 18:32:00 Kasie Persaud [facility] LIPASE 2023-04-27 18:32:00 Kasie Persaud [facility] AMMONIA, PLASMA 2023-04-27 18:32:00 Kasie Persaud [facility] TROPONIN I 2023-04-27 18:32:00 Kasie Persaud [facility] COMP. METABOLIC PANEL ([id number]) 2023-04-27 18:32:00 Kasie Persaud [facility] CBC WITH DIFF 2023-04-27 18:32:00 Kasie Persaud [facility] COVID-19 (ID NOW RAPID TESTING) 2023-04-27 18:32:00 Kasie Persaud [facility] CONSENT/REFUSAL FOR DIAGNOSIS AND TREATMENT 2023-04-27 17:35:52 Doctor Unassigned, [facility]all [facility] IR EMBOLIZATION TUMORS ORGAN ISCHEMIA OR INFARCTION 2023-04-14 16:40:54 Demetrice [facility] MAGNESIUM 2023-04-07 08:11:00 Parth Bills [facility] COMP. METABOLIC PANEL ([id number]) 2023-04-07 08:11:00 Parth Bills [facility] CBC WITH DIFF 2023-04-07 08:11:00 Parth Bills [facility] PROTHROMBIN TIME / INR 2023-04-07 08:11:00 Negar Parth [facility] ACTIVATED PARTIAL THRMPLAS MARIAM 2023-04-07 08:11:00 Negar [facility] IR EMBOLIZATION TUMORS ORGAN ISCHEMIA OR INFARCTION 2023-04-07 00:35:05 Demetrice [facility] ABG+COOX+NA+K+GLU+CA2+ 2023-04-06 22:16:00 Marlon Black [facility] ABG+COOX+NA+K+GLU+CA2+ 2023-04-06 22:16:00 [facility] COMP. METABOLIC PANEL ([id number]) 2023-03-10 16:29:00 Jacinda [facility] CBC WITHOUT DIFF 2023-03-10 16:29:00 [facility] / [facility]R 2023-03-10 16:29:00 Jacinda [facility] MR ABDOMEN W WO CONTRAST 2023-01-19 16:02:00 Jefe Mariscal ed [facility] PATIENT FINANCIAL POLICY 2023-01-19 14:02:45 Doctor Unassigned, [facility] CONSENT/REFUSAL FOR DIAGNOSIS AND TREATMENT 2023-01-19 13:58:49 Doctor Unassigned, [facility] ASSIGNMENT OF BENEFITS 2023-01-19 13:58:33 Docto r Unassigned, [facility]dall [facility] IR EMBOLIZATION TUMORS ORGAN ISCHEMIA OR INFARCTION 2022-10-08 22:00:25 Christopher Mariscal [facility] MR ABDOMEN W WO CONTRAST 2022-08-25 16:15:00 Greg Mariscal [facility] CONSENT/REFUSAL FOR DIAGNOSIS AND TREATMENT 2022-08-25 14:03:55 Doctor Unassigned, [facility] ASSIGNMENT OF BENEFITS 2022-08-25 14:02:58 Docto r Unassigned, [facility]dall [facility] EXTERNAL PROVIDER RECORDS 2022-07-28 06:01:00 Do ctor Unassigned, [facility]all [facility] IRON PANEL 2022-05-20 18:03:00 Christopher Mariscal [facility] REFERRAL- REQUEST/RESPONSE 2022-05-04 05:01:00 Doctor Unassigned, [facility]all [facility] BASIC METABOLIC PANEL (NA, K, CL, CO2, GLUCOSE, BUN, CREATININE, CA) 2021-12-17 17:36:00 Javier Colbert [facility] BASIC METABOLIC PANEL (NA, K, CL, CO2, GLUCOSE, BUN, CREATININE, CA) 2021-12-17 00:18:00 Gianna Ayers [facility] HCV ANTIBODY 2021-12-16 22:26:00 Gianna Ayers [facility] US ABDOMEN LIMITED WITH DOPPLER 2021-12-16 10:43:58 Leia Flor [facility] CT ABDOMEN PELVIS WO CONTRAST 2021-12-16 06:10:43 Boyd Claros [facility] CT THORAX W CONTRAST 2021-12-16 02:02:00 Brigida Ulloa [facility] LIPASE 2021-12-15 22:37:00 Vincent, Sh[facility] TROPONIN I 2021-12-15 22:37:00 Gorge [facility] THYROID STIMULATING HORMONE 2021-12-15 22:37:00 Brigida Ulloa [facility] COMP. METABOLIC PANEL ([id number]) 2021-12-15 22:37:00 Jerod Pennington [facility] CBC WITH DIFF 2021-12-15 22:37:00 Jerod Pennington [facility] N-TERMINAL PRO-BNP 2021-12-15 22:37:00 Winifred Ulloa [facility] XR CHEST 2 VW 2021-12-15 22:22:00 Brigida Ulloa U [facility] MAGNESIUM 2021-11-05 16:31:00 Nader Cross [facility] COMP. METABOLIC PANEL ([id number]) 2021-11-05 16:31:00 [facility] LIPID PANEL ([id number])(TOTAL CHOLESTEROL, TRIGLYCERIDES, HDL) 2021-11-05 16:31:00 Jorge Fernández [facility] TROPONIN I 2021-11-05 09:50:00 Nader Cross [facility] FREE T4 2021-11-05 09:50:00 Jorge Fernández [facility] THYROID STIMULATING HORMONE 2021-11-05 09:50:00 Jorge Fernández [facility] N-TERMINAL PRO-BNP 2021-11-05 09:50:00 America [facility] TROPONIN I 2021-11-04 23:44:00 Nader Cross [facility] TRANSTHORACIC ECHO (TTE) COMPLETE W/ CONTRAST 2021-11-04 17:37:10 Nader Cross [facility] PHOSPHORUS 2021-11-04 12:05:00 Nader Cross [facility] URIC ACID 2021-11-04 12:05:00 Nader Cross [facility] MAGNESIUM 2021-11-04 12:05:00 Nader Cross [facility] TROPONIN I 2021-11-04 12:05:00 Nader Cross [facility] LIPID PANEL ([id number])(TOTAL CHOLESTEROL, TRIGLYCERIDES, HDL) 2021-11-04 12:05:00 Nader Cross [facility] VITAMIN B12, LEVEL 2021-11-04 08:48:00 Nader Cross [facility] TROPONIN I 2021-11-04 08:48:00 Nader Cross [facility] SEDIMENTATION RATE 2021-11-04 08:48:00 Nader Cross [facility] VITAMIN D, 25-OH 2021-11-04 08:48:00 Nader Cross [facility] PROCALCITONIN 2021-11-04 08:48:00 [facility] (IMMUNOASSAY) - COMPREHENSIVE DRUG SCREEN 2021-11-04 08:08:00 Nader Cross [facility] URINALYSIS 2021-11-04 08:08:00 Nader Cross [facility] URINE CULTURE 2021-11-04 08:08:00 Nader Cross [facility] UREA NITROGEN, URINE RANDOM 2021-11-04 08:08:00 America edmond [facility] SODIUM, URINE RANDOM 2021-11-04 08:08:00 John Paul Cross [facility] PROTEIN CREAT RATIO URINE RANDOM 2021-11-04 08:08:00 Nader Cross [facility] RESPIRATORY PANEL BY PCR 2021-11-04 08:08:00 America edmond [facility] COVID-19 (ID NOW RAPID TESTING) 2021-11-04 04:03:00 Sheba Lott [facility] LAB ONLY COVID INTERPRETATION 2021-11-04 04:03:00 Sheba Lott [facility] XR CHEST 1 VW 2021-11-04 02:57:00 Birgit Lemon [facility] ACUTE CARE ARTERIAL BLOOD GAS 2021-11-04 02:57:00 Birgit Lemon [facility] LIPASE 2021-11-04 02:45:00 Birgit Lemon [facility] TROPONIN I 2021-11-04 02:45:00 Birgit Lemon [facility] COMP. METABOLIC PANEL ([id number]) 2021-11-04 02:45:00 Birgit Lemon [facility] CBC WITH DIFF 2021-11-04 02:45:00 Birgit Lemon [facility] GLYCOSYLATED HEMOGLOBIN (A1C) 2021-11-04 02:45:00 Nader Cross [facility] PROTHROMBIN TIME / INR 2021-11-04 02:45:00 Aldair Lemon [facility] ACTIVATED PARTIAL THRMPLAS MARIAM 2021-11-04 02:45:00 Birgit Lemon [facility] HB ECG ROUTINE & RHYTHM STRIP 2021-11-04 02:13:29 Birgit Lemon [facility] NOTICE OF PRIVACY PRACTICES 2021-11-04 01:59:17 Doctor Unassigned, [facility] CONSENT/REFUSAL FOR DIAGNOSIS AND TREATMENT 2021-11-04 01:58:37 Doctor Unassigned, [facility] Plan of Care Planned Activity Planned Date Details Comments Source Goal Plan of Care Note [code = 09878-5] Goal Plan of Care Note [code = 37188-0] Goal Plan of Care Note [code = 26417-7] Goal Plan of Care Note [code = 89213-9] Goal Plan of Care Note [code = 14008-9] Goal Plan of Care Note [code = 99299-0] Goal Plan of Care Note [code = 99822-4] Goal Plan of Care Note [code = 53651-6] Goal Plan of Care Note [code = 79897-6] Goal Plan of Care Note [code = 99492-5] Goal Plan of Care Note [code = 07111-0] Goal Plan of Care Note [code = 96326-6] Goal Plan of Care Note [code = 98043-7] Goal Plan of Care Note [code = 82114-2] Goal Plan of Care Note [code = 22285-4] Goal Plan of Care Note [code = 53339-5] Goal Plan of Care Note [code = 54045-6] Goal Plan of Care Note [code = 60432-8] Goal Plan of Care Note [code = 69834-1] Goal Plan of Care Note [code = 89017-7] Goal Plan of Care Note [code = 78354-1] Goal Plan of Care Note [code = 01596-3] Goal Plan of Care Note [code = 16008-2] Goal Plan of Care Note [code = 03906-7] Goal Plan of Care Note [code = 76824-4] Goal Plan of Care Note [code = 75227-4] Goal Plan of Care Note [code = 28840-9] Goal Plan of Care Note [code = 98893-0] Goal Plan of Care Note [code = 89089-4] Goal Plan of Care Note [code = 39933-7] Goal Plan of Care Note [code = 80214-6] Goal Plan of Care Note [code = 16316-4] Goal Plan of Care Note [code = 33297-1] Goal Plan of Care Note [code = 20560-4] Goal Plan of Care Note [code = 05224-9] Goal Plan of Care Note [code = 28922-8] Goal Plan of Care Note [code = 98847-1] Goal Plan of Care Note [code = 83824-5] Goal Plan of Care Note [code = 81341-1] Goal Plan of Care Note [code = 05470-3] Goal Plan of Care Note [code = 89873-0] Goal Plan of Care Note [code = 43293-8] Goal Plan of Care Note [code = 21589-2] Goal Plan of Care Note [code = 21868-4] Goal Plan of Care Note [code = 59565-3] Goal Plan of Care Note [code = 60931-4] Goal Plan of Care Note [code = 95395-4] Goal Plan of Care Note [code = 51314-6] Goal Plan of Care Note [code = 38492-6] Goal Plan of Care Note [code = 43007-3] Goal Plan of Care Note [code = 15506-3] Goal Plan of Care Note [code = 78723-0] Goal Plan of Care Note [code = 57400-4] Goal Plan of Care Note [code = 57445-9] Encounters Start Date/Time End Date/Time Encounter Type Admission Type Attending Clinicians Care Facility Care Department Encounter ID Source 2023-09-23 00:00:00 2023-09-23 00:00:00 Orders Only Doctor Unassigned, [facility] 1..840.114 350.1.13.10 4.2.7.2.686 [id number] [facility] 2023-09-22 15:46:22 2023-09-22 15:46:22 Outpatient [facility] [id number] Feliciano Buchanan Miko 2023-08-24 14:02:01 2023-08-24 14:02:01 Outpatient [facility] [id number] Feliciano Buchanan Miko 2023-07-21 00:00:00 2023-07-21 00:00:00 Telephone Christopher Mariscal [facility] 1..840.114 350.1.13.10 4.2.7.2.686 [id number] [facility] 2023-07-20 00:00:00 2023-07-20 00:00:00 Telephone MariscalGreg leonhif [facility] 1.2.840.114 350.1.13.10 4.2.7.2.686 [id number] [facility] 2023-07-18 10:55:41 2023-07-18 23:59:00 Outpatient R ANA LI ASHLEY [facility] [id number] [facility] 2023-07-18 10:55:41 2023-07-18 23:59:00 Hospital Encounter Ana Li [facility] 1.2.840.114 350.1.13.10 4.2.7.2.686 [id number] [facility] 2023-07-11 10:30:00 2023-07-11 11:00:00 Office Visit Christopher Mariscal [facility] 1.0.114 350.1.13.10 4.2.7.2.686 [id number] [facility] 2023-07-11 10:30:00 2023-07-11 10:30:00 Outpatient R MARISCALGREG LEONHIF [facility] [id number] [facility] 2023-07-08 07:50:17 2023-07-08 23:59:00 Outpatient R RADIOLOGY [facility] [id number] [facility] 2023-07-08 07:50:17 2023-07-08 23:59:00 Hospital Encounter Radiology [facility] 1.2840.114 350.1.13.10 4.2.7.2.686 [id number] [facility] 2023-07-08 08:58:55 2023-07-08 08:58:[address] [facility] [id number] Feliciano Buchanan Miko 2023-07-04 09:51:59 2023-07-04 09:51:[address] [facility] [id number] Feliciano Crouch 2023-06-09 10:52:23 2023-06-09 10:52:[address] [facility] [id number] Feliciano Buchanan Miko 2023-04-27 12:49:00 2023-04-27 16:08:00 Emergency X KASIE PERSAUD [facility] [id number] [facility] 2023-04-27 12:49:00 2023-04-27 16:08:00 Emergency Kasie Persaud [facility] 1.840.114 350.1.13.10 4.2.7.2.686 [id number] [facility] 2023-04-27 00:00:00 2023-04-27 00:00:00 Case Management Tavia Mariscal [facility] 1.0.114 350.1.13.10 4.2.7.2.686 [id number] [facility] 2023-04-22 07:46:33 2023-04-22 23:59:00 Hospital Encounter [facility] 1.2.840.114 350.1.13.10 4.2.7.2.686 [id number] [facility] 2023-04-22 07:46:20 2023-04-22 23:59:00 Outpatient R JUAN GUY [facility] [id number] [facility] 2023-04-22 07:46:20 2023-04-22 23:59:00 Hospital Encounter [facility] 1..840.114 350.1.13.10 4.2.7.2.686 [id number] [facility] 2023-04-22 00:00:00 2023-04-22 00:00:00 Outpatient R BROOKS [facility] [id number] [facility] 2023-04-14 08:00:00 2023-04-14 23:59:00 Hospital Encounter Mayrajohnson JuanKelsie Cruz [facility] 1..840.114 350.1.13.10 4.2.7.2.686 [id number] [facility] 2023-04-14 07:23:44 2023-04-14 23:59:00 Outpatient R BROOKS [facility] [id number] [facility] 2023-04-14 07:23:57 2023-04-14 07:59:00 Outpatient R BROOKS [facility] [id number] [facility] 2023-04-14 07:23:57 2023-04-14 07:59:00 [facility] 1.2.840.114 350.1.13.10 4.2.7.2.686 [id number] [facility] 2023-04-11 10:30:00 2023-04-11 11:00:00 Office Visit Christopher Mariscal [facility] 1.2.840.114 350.1.13.10 4.2.7.2.686 [id number] [facility] 2023-04-11 10:30:00 2023-04-11 10:30:00 Outpatient R CHRISTOPHER MARISCAL [facility] [id number] [facility] 2023-04-08 11:13:27 2023-04-08 11:13:[address] [facility] [id number] Feliciano Crouch 2023-04-08 00:00:00 2023-04-08 00:00:00 Case Management [facility] 1.2.840.114 350.1.13.10 4.2.7.2.686 [id number] [facility] 2023-04-08 00:00:00 2023-04-08 00:00:00 Case Management [facility] 1.2.840.114 350.1.13.10 4.2.7.2.686 [id number] [facility] 2023-04-06 17:48:00 2023-04-07 15:20:00 Hospital Encounter Christine Black Michael [facility] 1.2.840.114 350.1.13.10 4.2.7.2.686 [id number] [facility] 2023-04-06 10:20:45 2023-04-07 15:20:00 Outpatient WILY CAMACHO [facility] [id number] [facility] 2023-04-06 10:01:24 2023-04-06 10:19:00 Hospital Encounter [facility] 1.2.840.114 350.1.13.10 4.2.7.2.686 [id number] [facility] 2023-04-06 07:57:16 2023-04-06 10:00:00 Hospital Encounter [facility] 1.2.840.114 350.1.13.10 4.2.7.2.686 [id number] [facility] 2023-04-06 07:56:55 2023-04-06 07:56:55 Hospital Encounter [facility] 1.2.840.114 350.1.13.10 4.2.7.2.686 [id number] [facility] 2023-04-04 00:00:00 2023-04-04 00:00:00 Case Management Demetrice [facility] 1.2.840.114 350.1.13.10 4.2.7.2.686 [id number] [facility] 2023-04-01 08:01:14 2023-04-01 23:59:00 Hospital Encounter Viktoriya Hernández [facility] 1.2.840.114 350.1.13.10 4.2.7.2.686 [id number] [facility] 2023-04-01 08:00:39 2023-04-01 08:00:39 Hospital Encounter Viktoriya Hernández [facility] 1.2.840.114 350.1.13.10 4.2.7.2.686 [id number] [facility] 2023-04-01 08:00:39 2023-04-01 08:00:39 Outpatient R VIKTORIYA HERNÁNDEZ 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 [id number] [place] [place] 2023-03-09 11:18:47 2023-03-09 11:18:[address] [facility] [facility] [address] [place] 2023-03-03 08:21:09 2023-03-03 08:21:09 Outpatient [facility] [address] [place] 2023-03-02 17:25:49 2023-03-02 17:25:[address] [facility] [address] [place] 2023-02-21 00:00:00 2023-02-21 00:00:00 Case Management [facility] .840.114 350.1.13.10 4.2.7.2.686 [id number] [facility] 2023-02-16 14:00:00 2023-02-16 15:00:00 Telemedici ne Visit [facility] 1.840.114 350.1.13.10 4.2.7.2.686 [id number] [facility] 2023-02-16 14:00:00 2023-02-16 14:00:00 Outpatient VIKTORIYA CARLSON [facility] [id number] Sharyn eliza [facility] 2023-02-11 00:00:00 2023-02-11 00:00:00 Telephone Mariscal, [facility] 1.0.114 350.1.13.10 4.2.7.2.686 [id number] [facility] 2023-02-11 00:00:00 2023-02-11 00:00:00 Telephone [facility] 1.0.114 350.1.13.10 4.2.7.2.686 [id number] [id number] [facility] 2023-02-09 13:19:34 2023-02-09 13:19:[address] [facility] [id number] 0712 Felician[address] F Miko 2023-02-01 00:00:00 2023-02-01 00:00:00 Case Management Mariscal, [facility] 1.0.114 350.1.13.10 4.2.7.2.686 [id number] [facility] 2023-01-19 08:59:09 2023-01-19 23:59:00 Outpatient MARLON TRINIDADALAN 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 [facility] 1.0.114 350.1.13.10 4.2.7.2.686 [id number] [facility] 2023-01-03 10:30:00 2023-01-03 11:00:00 Office Visit Christopher Mariscal [facility] 1.2.840.114 350.1.13.10 4.2.7.2.686 [id number] [id number] [facility] 2023-01-03 10:30:00 2023-01-03 10:30:00 Outpatient R LOIDA CHRISTOPHER [facility] [id number] [facility] 2022-11-12 00:00:00 2022-11-12 00:00:00 Outpatient R WAYNEMARLON CHOWDHURYALAN [facility] [id number] [facility] 2022-10-27 16:28:29 2022-10-27 16:28:[address] [facility] [id number] Fel[address]ouch 2022-10-18 07:16:21 2022-10-18 23:59:00 Hospital Encounter [facility] 1.2.840.114 350.1.13.10 4.2.7.2.686 [id number] [facility] 2022-10-18 07:15:30 2022-10-18 07:15:30 Hospital Encounter [facility] 1.2.840.114 350.1.13.10 4.2.7.2.686 [id number] [facility] 2022-10-18 07:14:49 2022-10-18 07:14:49 Hospital Encounter [facility] 1.2.840.114 350.1.13.10 4.2.7.2.686 [id number] [facility] 2022-10-18 07:14:13 2022-10-18 07:14:13 Hospital Encounter [facility] 1.2.840.114 350.1.13.10 4.2.7.2.686 [id number] [facility] 2022-10-18 07:13:05 2022-10-18 07:13:05 Outpatient R CHRISTINE BLACK [facility] [id number] [facility] 2022-10-18 07:13:05 2022-10-18 07:13:05 Hospital Encounter [facility] 1.2.840.114 350.1.13.10 4.2.7.2.686 [id number] [facility] 2022-10-12 00:00:00 2022-10-12 00:00:00 Case Management Tavia Mariscal [facility] 1.2.840.114 350.1.13.10 4.2.7.2.686 [id number] [facility] 2022-10-08 07:59:58 2022-10-08 23:59:00 Hospital Encounter [facility] 1.2840.114 350.1.13.10 4.2.7.2.686 [id number] [facility] 2022-10-08 06:56:12 2022-10-08 07:58:00 Outpatient R CHRISTOPHER MARISCAL [facility] [id number] [facility] 2022-10-08 06:56:12 2022-10-08 07:58:00 Hospital Encounter Christopher Mariscal [facility] 1.2.840.114 350.1.13.10 4.2.7.2.686 [id number] [facility] 2022-10-04 12:00:00 2022-10-04 23:59:00 Hospital Encounter Christopher Mariscal [facility] 1.2840.114 350.1.13.10 4.2.7.2.686 [id number] [facility] 2022-10-04 11:15:00 2022-10-04 11:30:00 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 Visit [facility] 1.2.840.114 350.1.13.10 4.2.7.2.686 [id number] [facility] 2022-10-04 10:00:00 2022-10-04 10:43:50 [id number] 2022-10-04 10:00:00 2022-10-04 10:43:50 Office Visit [facility] 1.2.840.114 350.1.13.10 4.2.7.2.686 [id number] [id number] [facility] 2022-09-29 00:00:00 2022-09-29 00:00:00 Telephone [facility] 1.2.840.114 350.1.13.10 4.2.7.2.686 [id number] [facility] 2022-09-28 00:00:00 2022-09-28 00:00:[address] [facility] 1.2.840.114 350.1.13.10 4.2.7.2.686 [id number] [facility] 2022-09-27 00:00:00 2022-09-27 00:00:00 Telephone [facility] 1.2.840.114 350.1.13.10 4.2.7.2.686 [id number] [facility] 2022-09-22 00:00:00 2022-09-22 00:00:00 Multidisci plinary Conference [facility] 1.2.840.114 350.1.13.10 4.2.7.2.686 [id number] [id number] [facility] 2022-09-10 09:58:10 2022-09-10 09:58:[address] [facility] 209 Fel[address]ouch 2022-09-03 14:37:41 2022-09-03 14:37:41 Outpatient [facility] 202 [address] 2022-09-03 00:00:00 2022-09-03 00:00:[address] Pat [facility] 1.2.840.114 350.1.13.10 4.2.7.2.686 [id number] [facility] 2022-09-01 00:00:00 2022-09-01 00:00:00 Outpatient R GREG MARISCALHIF [facility] [id number] [facility] 2022-08-25 08:12:03 2022-08-25 23:59:00 Outpatient R GREG MARISCALHIF [facility] [id number] [facility] 2022-08-25 08:12:03 2022-08-25 23:59:00 Hospital Encounter Greg Mariscalhif [facility] 1.2.840.114 350.1.13.10 4.2.7.2.686 [id number] [facility] 2022-08-25 08:04:40 2022-08-25 08:11:00 Hospital Encounter Greg Mariscalhif [facility] 1.2.840.114 350.1.13.10 4.2.7.2.686 [id number] [facility] 2022-08-25 08:04:17 2022-08-25 08:11:00 Hospital Encounter Loida Christopher [facility] 1.2.840.114 350.1.13.10 4.2.7.2.686 [id number] [facility] 2022-08-25 08:02:32 2022-08-25 08:03:00 Hospital Encounter Christopher Mariscal [facility] 1..114 350.1.13.10 4.2.7.2.686 [id number] [facility] 2022-08-25 00:00:00 2022-08-25 00:00:[address] Pat 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[facility] ..114 350.1.13.10 4.2.7.2.686 [id number] [facility] 2022-07-08 11:00:00 2022-07-08 11:30:00 Office Visit Greg Mariscalhif [facility] ..114 350.1.13.10 4.2.7.2.686 [id number] [facility] 2022-07-08 00:00:00 2022-07-08 00:00:00 [facility] 1.0.114 350.1.13.10 4.2.7.2.686 [id number] [id number] [facility] 2022-07-01 16:09:47 2022-07-01 16:09:47 Outpatient SFA [facility] [id number] 1201 Fel[address] Crouch 2022-07-01 00:00:00 2022-07-01 00:00:00 Outpatient Visit [id number]- [id number] 123-46f8-a [id number] [id number] 2022-06-30 00:00:00 2022-06-30 00:00:00 Telephone Christopher Mariscal [facility] [place] [facility] 1.2.840.114 350.1.13.10 4.2.7.2.686 [id number] [facility] 2022-06-30 00:00:00 2022-06-30 00:00:00 Telephone MariscalGregChristopher [facility] 1.2.840.114 350.1.13.10 4.2.7.2.686 [id number] [facility] 2022-06-28 00:00:00 2022-06-28 00:00:00 Telephone Greg Mariscalhif [facility] 1.2.840.114 350.1.13.10 4.2.7.2.686 [id number] [facility] 2022-06-08 00:00:00 2022-06-08 00:00:00 Telephone Greg Mariscalhif [facility] 1.2.840.114 350.1.13.10 4.2.7.2.686 [id number] [facility] 2022-06-03 00:00:00 2022-06-03 00:00:00 Outpatient R CHRISTOPHER MARISCAL [facility] [id number] [facility] 2022-06-01 00:00:00 2022-06-01 00:00:00 Telephone Greg Mariscalhif 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, [facility] Loida [facility] 1.2.840.114 350.1.13.10 4.2.7.2.686 [id number] [facility] 2022-05-20 11:30:00 2022-05-20 12:00:00 [facility] [place] [facility] 1.0.114 350.1.13.10 4.2.7.2.686 [id number] [facility] 2022-05-20 11:30:00 2022-05-20 11:30:00 Outpatient R CHRISTOPHER MARISCAL [facility] [id number] [facility] 2022-05-05 00:00:00 2022-05-05 00:00:00 Telephone Loida Christopher [facility] 1.0.114 350.1.13.10 4.2.7.2.686 [id number] [facility] 2022-05-04 00:00:00 2022-05-04 00:00:00 Orders Only Doctor Unassigned, Udall [facility] 1.2.840.114 350.1.13.10 4.2.7.2.686 [id number] [facility] 2022-04-07 00:00:00 2022-04-07 00:00:00 Outpatient Visit [id number]- [id number]-[id number] 640-4312-b [id number] 2022-03-03 00:00:00 2022-03-03 00:00:00 Outpatient Visit [id number] [id number] d8c0e5 2021-12-15 15:52:00 2021-12-17 21:23:00 Outpatient LEX SMITH [facility] JULIETTE [id number] [facility] 2021-12-15 15:52:00 2021-12-17 21:23:00 [facility] , Brigida Claros, Boyd Mehta, Lex Victor, [facility] 1.840.114 350.1.13.10 4.2.7.2.686 [id number] [facility] 2021-11-06 00:00:00 2021-11-06 00:00:00 Transition of Care Nickie Davidson RONALDO 1.0.114 350.1.13.10 4.2.7.2.686 [id number] [facility] 2021-11-03 21:06:00 2021-11-05 18:36:00 Outpatient X ARNLO CAREY [facility] JULIETTE [id number] [facility] 2021-11-03 21:06:00 2021-11-05 18:36:00 Hospital Encounter Sheba Lott, Arnol Page [facility] 1..114 350.1.13.10 4.2.7.2.686 [id number] [facility] Results Test Description Test Time Test Comments Results Result Co mments Source CREATINE [id number] 20:15:11* Test Item Value Reference Range Interpretation Comme nts CK (test code = 3745358718) 34 U/L 33-194 Lab Interpretation (test cod e = 96212-1) Normal [facility] WITH [id number] 20:03:43* Test Item Value Reference Range Interpretation [...] 34.8 g/dL 31.2-35.0 RDW-SD (test code = 40326-4) 48.6 fL 38.5-51.6 RDW-CV (test code = 788-0) 13.8 % 12.1-15.4 PLT (test code = 777-3) 86 See_Comment L [Automated messa ge] The system which generated this result transmitted reference range: 150 - 328 10*3/?L. The reference range was not used to interpret this result as normal/abnormal. MPV (test code = 89613-2) 9.6 fL 9.8-13.0 L NRBC/100 WBC (test code = 7156042595) 0.0 See_Comment [Automated me ssage] The system which generated this result transmitted reference range: 0.0 - 10.0 /100 WBCs. The reference range was not used to interpret this result as normal/abnormal. NRBC x10^3 (test code = 9755963534) See_Comment [Automated messa ge] The system which generated this result transmitted reference range: 10*3/?L. The reference range was not used to interpret this result as normal/abnormal. GRAN MAT (NEUT) % (test code = 770-8) 71.5 % IMM GRAN % (test code = 2009848488) 2.00 % LYMPH % (test code = 736-9) 3.3 % MONO % (test code = 5905-5) 18.6 % EOS % (test code = 713-8) 3.9 % BASO % (test code = 706-2) 0.7 % GRAN MAT x10^3(ANC) (test code = 4551067127) 3.27 10*3/uL 1.99-6.95 IMM GRAN x10^3 (test code = 4648973659) 0.09 10*3/uL 0.00-0.06 H LYMPH x10^3 (test code = 731-0) 0.15 10*3/uL 1.09-3.23 L MONO x10^3 (test code = 742-7) 0.85 10*3/uL 0.36-1.02 EOS x10^3 (test code = 711-2) 0.18 10*3/uL 0.06-0.53 BASO x10^3 (test code = 704-7) 0.03 10*3/uL 0.01-0.09 REACT LYMPHS (test code = 6947561444) Rare Lab Interpretation (test code = 64068-1) [facility]normal [id number] 19:18:40* Test Item Value Reference Range Interpretation Comme nts TROPONIN I (test code = 9486374982) 0.005 ng/mL <=0.034 TIFFANY (test code = [...] of biotin. Lab Interpretation (test code = 93332-0) Normal [facility]. METABOLIC PANEL (20999)2023-04-27 19:06:59* Test Item Value Reference Range Interpretation Comme nts NA (test code = 1304407005) 132 mmol/L 135-145 L K (test code = 1869982040) 4.1 mmol/L 3.5-5.0 CL (test code = 2201136256) 103 mmol/L 98-108 CO2 TOTAL (test code = 3311649059) 20 mmol/L 23-31 L AGAP (test code = 8983930222) 9 2-16 BUN (test code = 2782962240) 19 mg/dL 7-23 GLUCOSE (test code = 1202511916) 132 mg/dL 70-110 H CREATININE (test code = 6980531593) 0.45 mg/dL 0.60-1.25 L TOTAL BILI (test code = 7529713022) 2.0 mg/dL 0.1-1.1 H CALCIUM (test code = 5443272293) 8.5 mg/dL 8.6-10.6 L T PROTEIN (test code = 2004159549) 8.0 g/dL 6.3-8.2 ALBUMIN (test code = 3274828172) 3.5 g/dL 3.5-5.0 ALK PHOS (test code = 7864271295) 128 U/L 34-122 H ALTv (test code = 1742-6) 66 U/L 5-50 H AST(SGOT) (test code = 6380841960) 63 U/L 13-40 H eGFR (test code = 1624591969) 188.5 mL/min/1.73m2 TIFFANY (test code = TIFFANY) [...] imaging tests). Lab Interpretation (test code = 07657-7) [facility] 19:06:38* Test Item Value Reference Range Interpretation Comme nts LIPASE (test code = 1106935342) 295 U/L 0-220 H Lab Interpretation (test cod e = 41012-8) [facility]normal [facility], [id number] 18:59:18* Test Item Value Reference Range Interpretation Comme nts AMMONIA (test code = 1757492861) 57 umol/L 9-33 H Slight hemolysis Lab Interpretation (test code = 67885-0) [facility]normal [facility]+COOX+NA+K+GLU+CA2+2023-04-07 01:55:25* Test Item Value Reference Range Interpretation Comme nts PH (test code = 2) 7.38 7.35-7.45 PCO2 (test code = 0753228695) 44 See_Comment [Automated [employer]] The system which generated this result transmitted reference range: 35 - 45 mmHg. The reference range was not used to interpret this result as normal/abnormal. PO2 (test code = 1977971235) 141 See_Comment H [Automated [employer]] The system which generated this result transmitted reference range: 80 - 100 mmHg. The reference range was not used to interpret this result as normal/abnormal. HCO3 (test code = 4667666613) 25 See_Comment [Automated messa ge] The system which generated this result transmitted reference range: 22 - 26 mEq/L. The reference range was not used to interpret this result as normal/abnormal. BE (test code = 1583574115) -0.4 See_Comment [Automated messa ge] The system which generated this result transmitted reference range: -3.0 - 3.0 mEq/L. The reference range was not used to interpret this result as normal/abnormal. THB (test code = 8545377524) 14.8 g/dL 13.5-18.0 %O2HB (test code = 4892765893) 96.7 % 94.0-99.0 %COHB ART (test code = 8613103434) 2.0 % 0.0-1.5 H %METHB ART (test code = 1991846628) 0.2 % 0.4-1.5 L VOL%O2 ART (test code = 2637297197) 20.3 % 15.0-23.0 QUES NA (test code = 0150086366) 133 mmol/L 135-145 L K+ (test code = 2952316745) 5.7 mmol/L 3.5-5.0 H AC CA IONZ (test code = 2597968114) 4.40 mg/dL 4.50-5.30 L GLUCOSE (test code = 4632938497) 78 mg/dL 70-110 Lab Interpretation (test code = 44518-8) Abnormal [facility]+COOX+NA+K+GLU+CA2+2023-04-07 01:55:25* Test Item Value Reference Range Interpretation Comme nts PH (test code = 2) 7.38 7.35-7.45 PCO2 (test code = 6298736285) 44 See_Comment [Automated messa ge] The system which generated this result transmitted reference range: 35 - 45 mmHg. The reference range was not used to interpret this result as normal/abnormal. PO2 (test code = 4381385995) 141 See_Comment H [Automated messa ge] The system which generated this result transmitted reference range: 80 - 100 mmHg. The reference range was not used to interpret this result as normal/abnormal. HCO3 (test code = 3216299327) 25 See_Comment [Automated messa ge] The system which generated this result transmitted reference range: 22 - 26 mEq/L. The reference range was not used to interpret this result as normal/abnormal. BE (test code = 4967096283) -0.4 See_Comment [Automated messa ge] The system which generated this result transmitted reference range: -3.0 - 3.0 mEq/L. The reference range was not used to interpret this result as normal/abnormal. THB (test code = 5252505575) 14.8 g/dL 13.5-18.0 %O2HB (test code = 9926408559) 96.7 % 94.0-99.0 %COHB ART (test code = 9842185881) 2.0 % 0.0-1.5 H %METHB ART (test code = 1014694184) 0.2 % 0.4-1.5 L VOL%O2 ART (test code = 2070168153) 20.3 % 15.0-23.0 QUES NA (test code = 7708680854) 133 mmol/L 135-145 L K+ (test code = 6716646092) 5.7 mmol/L 3.5-5.0 H AC CA IONZ (test code = 0054945080) 4.40 mg/dL 4.50-5.30 L GLUCOSE (test code = 6354047921) 78 mg/dL 70-110 Lab Interpretation (test code = 38168-5) Abnormal [facility]2023-08-11 05:26:27* Test Item Value Reference Range Interpretation Comme nts TESTOSTERONE (test code = 2830) 1092 NG/DL 300-720 H UNLESS OTHERWISE INDICATED, ALL TESTING PERFORMED AT [facility] [address] [place] [address] DENTIST ATTENDANT: QUENTIN CARTER M.D. CLIA NUMBER [id number] [facility] [place]. [id number] FSH + LH [id number] 05:25:43* Test Item Value Reference Range Interpretation Comme nts FOLLICLE STIM HORMONE (test code = 2700) 11.7 IU/L 1.5-12.4 LUTEINIZING HORMONE (test co de = 2776) 12.5 IU/L 1.2-8.6 H [id number] 02:52:34* Test Item Value Reference Range Interpretation Comme nts TESTOSTERONE (test code = 2830) 1083 NG/DL 300-720 H UNLESS OTHERWISE INDICATED, ALL TESTING PERFORMED AT [facility] [address] [place] [address] DENTIST ATTENDANT: QUENTIN CARTER M.D. CLIA NUMBER [id number] [place]. [id number] HEPATITIS PANEL, [id number] 04:17:42* Test Item Value Reference Range Interpretation Comme nts HEPATITIS A IgM (test code = 88195) NON-REACTIVE NON-REACTIVE HEPATITIS B CORE IgM (test code = 4644) NON-REACTIVE NON-REACTIVE HEPATITIS B SURF AG (test code = 2739) NON-REACTIVE NON-REACTIVE HEPATITIS C ANTIBODY (test code = 4675) REACTIVE NON-REACTIVE A INTERPRETATION HEPATITIS A: (test code = 2552) (NOTE) Hepatitis A serology shows no evidence of acute hepatitis A. INTERPRETATION HEPATITIS B: (test code = 41395) (NOTE) Hepatitis B serology shows no evidence of acute hepatitis B andno indication of exposure to hepatitis B virus in the previous tucker eight months. INTERPRETATION HEPATITIS C: (test code = 26929) (NOTE) Hepatitis C serology is consistent with exposure to hepatitis Cvirus. The CDC recommends performing a supplemental confirmatory teston initial positive hepatitis C antibody tests. HCV PCR quantitativecan be used to confirm these results on a new sample (See MMWR, 2003;52 RR-3). HEMOGLOBIN [id number] 03:59:41* Test Item Value Reference Range Interpretation Comme [facility] HEMOGLOBIN A1c (test code = 95486) 5.1 % 4.2-5.6 UNLESS OTHERWISE INDICATED, ALL TESTING PERFORMED AT [facility] [address] [place] [id number] DENTIST ATTENDANT: QUENTIN CARTER M.D. CLIA NUMBER [id number] [place]. [id number] CBC W/AUTO DIFF WITH [id number] 03:32:08* Test Item Value Reference Range Interpretation Comme [facility] WBC (test code = 1001) 3.8 K/UL [...] = 1065) 0.0 /100 WBC'S See_Comment [Automated [employer]] The system which generated this result [...] 0.00-0.10 ABS NUCLEATED RBCS (test code = 64633) 0.00 K/UL 0.00-0.11 COMPREHENSIVE METABOLIC [id number] 03:29:01* Test Item Value Reference Range Interpretation Comme nts GLUCOSE (test code = 2217) 79 MG/DL 70-99 BUN (test code = 2208) 13 MG/DL 8-23 CREATININE (test code = 2214) 0.53 MG/DL 0.80-1.40 L eGFR (2020 CKD-EPI) (test code = 22349) 111 ML/MIN/1.73 >60 CALC BUN/CREAT (test code = 2234) 25 RATIO 6-28 SODIUM (test code = 2230) 136 MEQ/L 133-146 POTASSIUM (test code = 2227) 4.2 MEQ/L 3.5-5.4 CHLORIDE (test code = 2214) 101 MEQ/L 95-107 CARBON DIOXIDE (test code = 2205) 25 MEQ/L 19-31 CALCIUM (test code = 2208) 9.2 MG/DL 8.5-10.5 PROTEIN, TOTAL (test code = 2228) 7.7 G/DL 6.1-8.3 ALBUMIN (test code = 2200) 3.6 G/DL 3.5-5.2 CALC GLOBULIN (test code = 2239) 4.1 G/DL 1.9-3.7 H CALC A/G RATIO [...] = 2218) 73 U/L 5-50 H LIPID [id number] 03:29:01* Test Item Value Reference Range Interpretation Comme nts CHOLESTEROL (test code = 2209) 169 MG/DL <200 TRIGLYCERIDES (test code = 2231) 49 MG/DL <150 HDL CHOLESTEROL (test code = 2219) 63 MG/DL >39 CALC LDL CHOL (test code = 2236) 92 MG/DL <100 NOTE: CALCULATED LDL IS BASED ON [employer]-PITTS METHOD WHICHINCLUDES ADJUSTABLE TRIGLYCERIDE:VLDL CHOLESTEROL RATIO.THIS FACTOR VARIES BY MEASURED TRIGLYCERIDE AND NON-HDLCHOLESTEROL CONCENTRATIONS WITH INCREASED CALCULATED LDL SEENIN HIGHER TRIGLYCERIDE OR LOWER NON-HDL SPECIMENS. FOR MOREINFORMATION, SEE CLIENT ANNOUNCEMENT AT [email or web address] RATIO LDL/HDL (test code = 223) 1.46 RATIO <3.55 OCCULT BLD,FECAL,IMMUNOASSAY [id number] 11:08:20* Test Item Value Reference Range Interpretation Comme nts OCCULT BLD, FECAL (test code = 67522) NEGATIVE NEGATIVE [facility] has important pathology staff changes effective 09/29/2022. New pathology staff will provide uninterrupted, excellent patient care and clinical consultation. See URL: [email or web address]. UNLESS OTHERWISE INDICATED, ALL TESTING PERFORMED AT [facility] [address] [place] [address] CLIA: [id number], CAP: [id number] BASIC METABOLIC PANEL (NA, K, CL, CO2, GLUCOSE, BUN, CREATININE, CA)2021-12-17 18:59:33* Test Item Value Reference Range Interpretation Comme nts NA (test code = 2289537296) 138 mmol/L 135-145 K (test code = 8319379947) 4.2 mmol/L 3.5-5.0 CL (test code = 1626147575) 97 mmol/L 98-108 L CO2 TOTAL (test code = 4946283704) 38 mmol/L 23-31 H AGAP (test code = 4232027785) 2-16 BUN (test code = 7744912315) 16 mg/dL 7-23 GLUCOSE (test code = 5698605217) 71 mg/dL 70-110 CREATININE (test code = 4560630545) 0.65 mg/dL 0.60-1.25 CALCIUM (test code = 6389478382) 8.8 mg/dL 8.6-10.6 eGFR (test code = 1045109005) mL/min/1.73m2 TIFFANY (test code = TIFFANY) Association [...] imaging tests). Lab Interpretation (test code = 22387-3) Abnormal [facility] METABOLIC PANEL (NA, K, CL, CO2, GLUCOSE, BUN, CREATININE, CA)2021-12-17 01:21:47* Test Item Value Reference Range Interpretation Comme nts NA (test code = 5814439115) 135 mmol/L 135-145 K (test code = 7886610786) 3.7 mmol/L 3.5-5.0 CL (test code = 0785305631) 100 mmol/L 98-108 CO2 TOTAL (test code = 1905820773) 33 mmol/L 23-31 H AGAP (test code = 9294445859) 2-16 BUN (test code = 5142247828) 14 mg/dL 7-23 GLUCOSE (test code = 5700792618) 112 mg/dL 70-110 H CREATININE (test code = 9998969976) 0.65 mg/dL 0.60-1.25 CALCIUM (test code = 1816166937) 8.3 mg/dL 8.6-10.6 L eGFR (test code = 1937262264) mL/min/1.73m2 TIFFANY (test code = TIFFANY) Association [...] imaging tests). Lab Interpretation (test code = 23124-4) [facility]ics[facility] [id number] 00:35:35* Test Item Value Reference Range Interpretation Comme [facility] HCV Ab (test code = 90514-6) Positive HCV Semi-Quantitative (test code = 28783-6) TIFFANY (test code = TIFFANY) Positive for HCV antibody. This specimen has been reflexed to qualitative PCR test and submitted to [facility]. ?A report will be issued by that laboratory. ?If any questions, contact the Clinical Chemistry Director content assistant at [phone].APRI score < 0.5: Suggestive of little to no fibrosisAPRI score > 1.5: Suggestive of moderate to severe fibrosisAPRI score > 2.0: Highly suggestive of cirrhosis. [facility]ics[facility]ID STIMULATING [id number] 04:08:35 * Test Item Value Reference Range Interpretation Comme [facility] TSH (test code = 5487768157) See_Comment [Automated [employer]] The system which generated this result transmitted reference range: 0.45 - 4.70 mIU/L. The reference range was not used to interpret this result as normal/abnormal. Lab Interpretation (test code = 83470-0) Normal [facility]icsN-TERMINAL [id number] 01:35:18* Test Item Value Reference Range Interpretation Comme nts NT-proBNP (test code = 1935622451) 74 pg/mL See_Comment [Automated message] The system which generated this result transmitted reference range: <=125. The reference range was not used to interpret this result as normal/abnormal. TIFFANY (test code = TIFFANY) Biotin has been reported to cause a negative bias, interpret results relative to patient's use of biotin. Lab Interpretation (test code = 69726-3) Normal [facility]icsTROPONIN [id number] 00:16:20* Test Item Value Reference Range Interpretation Comments TROPONIN I (test code = 4215593582) 0.015 ng/mL See_Comment [Automated message] The system [...] of biotin. Lab Interpretation (test code = 64417-1) Normal [facility]. METABOLIC PANEL (41206)2021-12-15 23:32:43* Test Item Value Reference Range Interpretation Comme nts NA (test code = 1693630333) 134 mmol/L 135-145 L K (test code = 4051088148) 4.8 mmol/L 3.5-5.0 Slight hemolysis CL (test code = 5597452589) 99 mmol/L 98-108 CO2 TOTAL (test code = 3502200948) 28 mmol/L 23-31 AGAP (test code = 3308866409) 2-16 BUN (test code = 6701738196) 12 mg/dL 7-23 Slight hemolysis GLUCOSE (test code = 4866133210) 84 mg/dL 70-110 CREATININE (test code = 0397575458) 0.58 mg/dL 0.60-1.25 L TOTAL BILI (test code = 7307569887) 2.4 mg/dL 0.1-1.1 H CALCIUM (test code = 7882771541) 8.7 mg/dL 8.6-10.6 T PROTEIN (test code = 7505512971) 6.4 g/dL 6.3-8.2 ALBUMIN (test code = 4230971092) 3.4 g/dL 3.5-5.0 L ALK PHOS (test code = 3395151638) 101 U/L 34-122 Slight hemolysis ALTv (test code = 1742-6) 31 U/L 5-50 AST(SGOT) (test code = 7011023355) 60 U/L 13-40 H Slight hemolysis eGFR (test code = 5001707136) mL/min/1.73m2 TIFFANY (test code = TIFFANY) Association [...] imaging tests). Lab Interpretation (test code = 76971-9) Abnormal [facility] ClinicsLIPASE, [id number] 23:32:43* Test Item Value Reference Range Interpretation Comme nts LIPASE (test code = 4450735423) 155 U/L 0-220 Lab Interpretation (test cod e = 87248-9) Normal [facility]icsCBC WITH [id number] 23:10:57* Test Item Value Reference Range Interpretation Comme nts WBC (test code = 6690-2) See_Comment L [Automated [employer]] The system which generated this result transmitted reference range: 4.20 - 10.70 10*3/?L. The reference range was not used to interpret this result as normal/abnormal. RBC (test code = 789-8) See_Comment [Automated messa ge] The system which [...] 32.7 g/dL 31.2-35.0 RDW-SD (test code = 88779-2) 50.9 fL 38.5-51.6 RDW-CV (test code = 788-0) 14.6 % 12.1-15.4 PLT (test code = 777-3) See_Comment L [Automated [employer]] The system which generated this result transmitted reference range: 150 - 328 10*3/?L. The reference range was not used to interpret this result as normal/abnormal. MPV (test code = 00782-4) 9.5 fL 9.8-13.0 L IPF % (test code = 0848445095) 1.3 % 1.2-10.7 Platelet count measured by fluorescence method. NRBC/100 WBC (test code = 9752660905) See_Comment [Automated [employer] ssage] The system which generated this result transmitted reference range: 0.0 - 10.0 /100 WBCs. The reference range was not used to interpret this result as normal/abnormal. NRBC x10^3 (test code = 1592748526) <0.01 See_Comment [Automated [employer]] The system which generated this result transmitted reference range: 10*3/?L. The reference range was not used to interpret this result as normal/abnormal. GRAN MAT (NEUT) % (test code = 770-8) 55.2 % IMM GRAN % (test code = 8857472887) 1.00 % LYMPH % (test code = 736-9) 25.7 % MONO % (test code = 5905-5) 14.7 % EOS % (test code = 713-8) 2.9 % BASO % (test code = 706-2) 0.5 % GRAN MAT x10^3(ANC) (test code = 9567104079) 2.30 10*3/uL 1.99-6.95 IMM GRAN x10^3 (test code = 4033473153) 0.04 10*3/uL 0.00-0.06 LYMPH x10^3 (test code = 731-0) 1.07 10*3/uL 1.09-3.23 L MONO x10^3 (test code = 742-7) 0.61 10*3/uL 0.36-1.02 EOS x10^3 (test code = 711-2) 0.12 10*3/uL 0.06-0.53 BASO x10^3 (test code = 704-7) <0.03 0.01-0.09 Lab Interpretation (test code = 74563-0) Abnormal [facility] ClinicsLIPID PANEL (18321)(TOTAL CHOLESTEROL, TRIGLYCERIDES, HDL)2021-11-05 17:05:42* Test Item Value Reference Range Interpretation Comme nts CHOL (test code = 4352854850) 186 mg/dL 120-200 HDL (test code = 0301233266) 45 mg/dL >40 HDLC RATIO (test code = 7087537540) See_Comment [Automated [employer]] The system which generated this result transmitted reference range: <=5.0. The reference range was not used to interpret this result as normal/abnormal. TRIG (test code = 9953361521) 64 mg/dL 30-170 LDL CHOL (test code = 02811-4) 128 mg/dL See_Comment [Automated [employer]] The system which generated this result transmitted reference range: <=160. The reference range was not used to interpret this result as normal/abnormal. VLDL (test code = 1749725711) 13 mg/dL 5-60 Lab Interpretation (test code = 76290-7) Normal [facility]icsCOMP. METABOLIC PANEL (83070)2021-11-05 17:05:21* Test Item Value Reference Range Interpretation Comme nts NA (test code = 0777334494) 138 mmol/L 135-145 K (test code = 2018193255) 4.6 mmol/L 3.5-5.0 CL (test code = 7708788671) 104 mmol/L 98-108 CO2 TOTAL (test code = 5651580780) 30 mmol/L 23-31 AGAP (test code = 4342825946) 2-16 BUN (test code = 4481232994) 20 mg/dL 7-23 GLUCOSE (test code = 6755220610) 102 mg/dL 70-110 CREATININE (test code = 0682577479) 0.63 mg/dL 0.60-1.25 TOTAL BILI (test code = 6069945776) 1.2 mg/dL 0.1-1.1 H CALCIUM (test code = 0258270283) 9.0 mg/dL 8.6-10.6 T PROTEIN (test code = 2493158340) 6.6 g/dL 6.3-8.2 ALBUMIN (test code = 7594096669) 3.2 g/dL 3.5-5.0 L ALK PHOS (test code = 6753982778) 75 U/L 34-122 ALTv (test code = 1742-6) 35 U/L 5-50 AST(SGOT) (test code = 0465909961) 39 U/L 13-40 eGFR (test code = 9875580695) mL/min/1.73m2 TIFFANY (test code = TIFFANY) Association [...] imaging tests). Lab Interpretation (test code = 07844-0) Abnormal [facility]icsMAGNESIUM2022-04-07 17:05:21* Test Item Value Reference Range Interpretation Comme nts MAGNESIUM (test code = 0691071878) 1.9 mg/dL 1.7-2.4 Lab Interpretation (test cod e = 02820-4) Normal [facility] ClinicsTHYROID STIMULATING [id number] 12:35:38 * Test Item Value Reference Range Interpretation Comme nts TSH (test code = 4438800794) See_Comment [Automated [employer]] The system which generated this result transmitted reference range: 0.45 - 4.70 mIU/L. The reference range was not used to interpret this result as normal/abnormal. Lab Interpretation (test code = 92302-8) Normal [facility] ClinicsFR [id number] 12:22:17* Test Item Value Reference Range Interpretation Comme nts FREE T4 (test code = 7847942716) See_Comment [Automated [employer]] The system which generated this result transmitted reference range: 0.78 - 2.20 ng/dL:. The reference range was not used to interpret this result as normal/abnormal. Lab Interpretation (test code = 34925-2) Normal [facility] ClinicsTROPONIN [id number] 12:16:59* Test Item Value Reference Range Interpretation Comments TROPONIN I (test code = 8944923306) 0.026 ng/mL See_Comment [Automated message] The system [...] of biotin. Lab Interpretation (test code = 96103-9) Normal [facility]icsN-TERMINAL [id number] 12:13:58* Test Item Value Reference Range Interpretation Comme [facility] NT-proBNP (test code = 4883236973) 228 pg/mL See_Comment H [Automated message] The system which generated this result transmitted reference range: <=125. The reference range was not used to interpret this result as normal/abnormal. TIFFANY (test code = TIFFANY) Biotin has been reported to cause a negative bias, interpret results relative to patient's use of biotin. Lab Interpretation (test code = 23948-3) Abnormal [facility] ClinicsTransthoracic echo (TTE)2021-11-05 00:59:55* Test Item Value Reference Range Interpretation Comme nts LVIDD (test code = 0962711595) 4.50 cm IVS (test code = 6616685257) 1.10 cm Interventricular Septum Diastolic Thickness by 2D (test code = 6613111) 1.10 cm LVPWD (test code = 0503214899) 1.24 cm PW (test code = 4579798519) 1.24 cm 0.6-1.1 LVOT diameter (test code = 0125056805) 1.92 cm ACS (test code = 8867617935) 1.82 cm Ao root annulus (test code = 9861947615) 3.5 cm Ao root diam (test code = 2220067027) 3.50 cm Aortic root (test code = 2821681246) 3.5 cm LA size (test code = 6040433080) 4.6 cm E wave decelartion time (test code = 9443791674) 0.21 s MV Peak E Catherine (test code = 1923200258) 64.9 cm/s MV Peak A Catherine (test code = 2345703358) 83.8 cm/s E/A ratio (test code = 4873667530) ratio MV Prop V (test code = 0739452585) 65.80 cm/s Tapse (test code = 0854107929) 1.92 cm LVOT stroke volume (test code = 8303761788) 67.60 cm3 LVOT peak catherine (test code = 2316632779) 110.2 cm/s LVOT mn grad (test code = 1363363876) mmHg AV LVOT peak gradient (test code = 6889025768) mmHg LVOT peak VTI (test code = 5746462638) 23.3 cm LV V1 mean (test code = 0776020909) 62.80 cm/s Aortic valve mean velocity (test code = 7807059153) 129.2 cm/s Ao peak catherine (test code = 1341502806) 230.1 cm/s Ao VTI (test code = 9233514746) 39.0 cm AV area by cont VTI (test code = 3806251112) 1.7 cm2 AV area peak catherine (test code = 9321507567) 1.4 cm2 Ao max PG (test code = 8426024176) 21.20 mm[Hg] AV peak gradient (test code = 0100221973) mmHg AV valve area (test code = 4950331279) 1.73 cm2 AV mean gradient (test code = 6640028887) mmHg TR Peak Catherine (test code = 6420764235) 233.7 cm/s Triscuspid Valve Regurgitation Peak Gradient (test code = 3737560956) mmHg EF(Teich) (test code = 4786662224) 60.40 % LVIDS (test code = 3917778995) 3.10 cm FS (test code = 9317229195) 32 % EF - 2D (test code = 91539897) 60.40 % Radiology Study observation (narrative) (test code = 50012-8) TIFFANY (test code = TIFFANY) ?Left?Ventricle: Left [...] (99.8 kg) 2.23 sq meters 130/95 88 [facility] ClinicsTROPONIN [id number] 00:28:36* Test Item Value Reference Range Interpretation Comments TROPONIN I (test code = 0335430653) 0.015 ng/mL See_Comment [Automated message] The system [...] of biotin. Lab Interpretation (test code = 96926-4) Normal [facility] ClinicsVITAMIN D, [id number] 17:50:34* Test Item Value Reference Range Interpretation Comme nts VIT D 25OH (test code = 94582-0) 19 ng/mL 25-80 L TIFFANY (test code = TIFFANY) Deficiency: <20 ng/mLInsufficiency: 20-24 ng/mLOptimal: 25-80 ng/mL Lab Interpretation (test code = 32879-8) Abnormal [facility] ClinicsPROCALCITONIN2022-04-06 16:54:29* Test Item Value Reference Range Interpretation Comme [facility] Procalcitonin (test code = 6634580978) 0.03 ng/mL <0.07 TIFFANY (test code = [...] lung abscess/empyema. For further information please refer to:[email or web address] Lab Interpretation (test code = 92093-3) Normal [facility] ClinicsVITAMIN B12, [id number] 16:39:51* Test Item Value Reference Range Interpretation Comme nts VIT B12 (test code = 0001919378) 636 pg/mL 240-930 TIFFANY (test code = TIFFANY) Biotin has been reported to cause a positive bias, interpret results relative to patient's use of biotin. Lab Interpretation (test code = 25821-7) Normal [facility] ClinicsLIPID PANEL (22008)(TOTAL CHOLESTEROL, TRIGLYCERIDES, HDL)2021-11-04 15:21:56* Test Item Value Reference Range Interpretation Comme nts CHOL (test code = 9968865249) 183 mg/dL 120-200 HDL (test code = 2180432308) 40 mg/dL >40 L HDLC RATIO (test code = 3658680594) See_Comment [Automated [employer]] The system which generated this result transmitted reference range: <=5.0. The reference range was not used to interpret this result as normal/abnormal. TRIG (test code = 5642118624) 57 mg/dL 30-170 LDL CHOL (test code = 51060-0) 132 mg/dL See_Comment [Automated [employer]] The system which generated this result transmitted reference range: <=160. The reference range was not used to interpret this result as normal/abnormal. VLDL (test code = 6220406575) 11 mg/dL 5-60 Lab Interpretation (test code = 07006-1) Abnormal [facility] ClinicsMAGNESIUM2022-04-06 15:21:56* Test Item Value Reference Range Interpretation Comme nts MAGNESIUM (test code = 0551092968) 1.6 mg/dL 1.7-2.4 L Lab Interpretation (test cod e = 51450-8) Abnormal [facility] ClinicsPHOSPHORUS2022-04-06 15:21:36* Test Item Value Reference Range Interpretation Comme nts PHOSPHORUS (test code = 1322502836) 3.1 mg/dL 2.5-5.0 Lab Interpretation (test cod e = 13250-4) Normal [facility] ClinicsURIC [id number] 15:21:16* Test Item Value Reference Range Interpretation Comme nts URIC ACID (test code = 4928589109) 4.4 mg/dL 3.6-8.0 Lab Interpretation (test cod e = 50603-2) Normal [facility] ClinicsTROPONIN [id number] 13:34:13* Test Item Value Reference Range Interpretation Comments TROPONIN I (test code = 9948382962) 0.038 ng/mL See_Comment H [Automated message] The [...] of biotin. Lab Interpretation (test code = 52608-1) Abnormal [facility] ClinicsSEDIMENTATION [id number] 11:19:15* Test Item Value Reference Range Interpretation Comme nts ESR (test code = 9611055817) See_Comment [Automated messa ge] The system which generated this result transmitted reference range: 0 - 10 mm/HR. The reference range was not used to interpret this result as normal/abnormal. Lab Interpretation (test code = 29105-3) Normal [facility] [id number] 10:43:39* Test Item Value Reference Range Interpretation Comments TROPONIN I (test code = 0078589185) 0.037 ng/mL See_Comment H Hemolyzed specimen [Automated [...] of biotin. Lab Interpretation (test code = 48824-4) Abnormal [facility] ClinicsGLYCOSYLATED HEMOGLOBIN (A1C)2021-11-04 09:01:59* Test Item Value Reference Range Interpretation Comme nts HGB A1C (test code = 4548-4) 6.0 % 4.0-5.7 H TIFFANY (test code = TIFFANY) Reference RangesNormal: <5.7%Prediabetes: 5.7 - 6.4%Diabetes: > 6.5% Lab Interpretation (test code = 89388-0) Abnormal [facility] [id number] 03:17:54* Test Item Value Reference Range Interpretation Comments TROPONIN I (test code = 2621151114) 0.035 ng/mL See_Comment H [Automated message] The [...] of biotin. Lab Interpretation (test code = 69930-3) Abnormal [facility]. METABOLIC PANEL (06005)2021-11-04 03:06:14* Test Item Value Reference Range Interpretation Comme nts NA (test code = 7070027295) 136 mmol/L 135-145 K (test code = 9821806806) 4.4 mmol/L 3.5-5.0 CL (test code = 5773572428) 99 mmol/L 98-108 CO2 TOTAL (test code = 8794906923) 29 mmol/L 23-31 AGAP (test code = 5784289061) 2-16 BUN (test code = 2473058669) 22 mg/dL 7-23 GLUCOSE (test code = 0250267506) 164 mg/dL 70-110 H CREATININE (test code = 8757175161) 0.72 mg/dL 0.60-1.25 TOTAL BILI (test code = 7632533355) 1.8 mg/dL 0.1-1.1 H CALCIUM (test code = 3086043393) 9.3 mg/dL 8.6-10.6 T PROTEIN (test code = 4642102196) 7.5 g/dL 6.3-8.2 ALBUMIN (test code = 2810617721) 3.7 g/dL 3.5-5.0 ALK PHOS (test code = 7425283521) 98 U/L 34-122 ALTv (test code = 1742-6) 35 U/L 5-50 AST(SGOT) (test code = 8856213322) 48 U/L 13-40 H eGFR (test code = 9439577448) mL/min/1.73m2 TIFFANY (test code = TIFFANY) Association [...] imaging tests). Lab Interpretation (test code = 86017-5) Abnormal [facility] ClinicsLIPASE, [id number] 03:05:54* Test Item Value Reference Range Interpretation Comme nts LIPASE (test code = 5076186180) 253 U/L 0-220 H Lab Interpretation (test cod e = 40870-4) Abnormal [facility] ClinicsaPTT2022-04-06 03:03:13* Test Item Value Reference Range Interpretation Comme nts APTT Patient (test code = 3173-2) See_Comment [Automated message] The system which generated this result transmitted reference range: 23 - 38 Seconds. The reference range was not used to interpret this result as normal/abnormal. TIFFANY (test code = TIFFANY) The [facility] patient population mean normal value for aPTT is 30 seconds. Lab Interpretation (test code = 86834-5) Normal [facility] ClinicsPROTHROMBIN TIME / [id number] 03:01:34* Test Item Value Reference Range Interpretation Comme nts PROTIME PATIENT (test code = 5964-2) See_Comment H [Automated messa ge] The system which generated this result transmitted reference range: 12.0 - 14.7 Seconds. The reference range was not used to interpret this result as normal/abnormal. INR (test code = 6301-6) Normal INR <1.1; Warfarin Therapeutic range 2.0 to 3.0 or 2.5 to 3.5, depending upon the indications. Lab Interpretation (test code = 93489-6) Abnormal [facility] ClinicsCBC WITH [id number] 02:55:12* Test Item Value Reference Range Interpretation [...] 33.4 g/dL 31.2-35.0 RDW-SD (test code = 96416-8) 50.4 fL 38.5-51.6 RDW-CV (test code = 788-0) 14.8 % 12.1-15.4 PLT (test code = 777-3) See_Comment L [Automated messa ge] The system which generated this result transmitted reference range: 150 - 328 10*3/?L. The reference range was not used to interpret this result as normal/abnormal. MPV (test code = 62741-9) 10.3 fL 9.8-13.0 NRBC/100 WBC (test code = 1571646706) See_Comment [Automated [employer] ssage] The system which generated this result transmitted reference range: 0.0 - 10.0 /100 WBCs. The reference range was not used to interpret this result as normal/abnormal. NRBC x10^3 (test code = 3124800405) <0.01 See_Comment [Automated messa ge] The system which generated this result transmitted reference range: 10*3/?L. The reference range was not used to interpret this result as normal/abnormal. GRAN MAT (NEUT) % (test code = 770-8) 72.3 % IMM GRAN % (test code = 8851080754) 1.70 % LYMPH % (test code = 736-9) 16.5 % MONO % (test code = 5905-5) 8.2 % EOS % (test code = 713-8) 1.0 % BASO % (test code = 706-2) 0.3 % GRAN MAT x10^3(ANC) (test code = 2705197576) 7.35 10*3/uL 1.99-6.95 H IMM GRAN x10^3 (test code = 5967753511) 0.17 10*3/uL 0.00-0.06 H LYMPH x10^3 (test code = 731-0) 1.67 10*3/uL 1.09-3.23 MONO x10^3 (test code = 742-7) 0.83 10*3/uL 0.36-1.02 EOS x10^3 (test code = 711-2) 0.10 10*3/uL 0.06-0.53 BASO x10^3 (test code = 704-7) 0.03 10*3/uL 0.01-0.09 Lab Interpretation (test code = 92821-0) [facility]normal [facility] ClinicsNOTE: [ADDED]2017-09-14 00:00:00* Test Item Value Reference Range [...] TOTAL (test code = 2606) 0.82 NG/ML HEMOGLOBIN [id number] 00:00:00* Test Item Value Reference Range Interpretation Comme nts HEMOGLOBIN A1c (test code = 61202) 5.4 % HEMOGLOBIN [id number] 00:00:00* Test Item Value Reference Range Interpretation Comme nts HEMOGLOBIN A1c (test code = 66119) 5.4 % CBC W/AUTO [id number] 00:00:00* Test Item Value Reference Range Interpretation [...] code = 1015) 135 K/UL CBC W/AUTO [id number] 00:00:00* Test Item Value Reference Range Interpretation [...] code = 1015) 135 K/UL CBC W/AUTO [id number] 00:00:00* Test Item Value Reference Range Interpretation [...] code = 1015) 135 K/UL COMPREHENSIVE METABOLIC [id number] 00:00:00* Test Item Value Reference Range Interpretation Comme nts GLUCOSE (test code = 2217) 120 MG/DL BUN (test code = 2208) 22 MG/DL CREATININE (test code = 2214) 0.81 MG/DL eGFR AMER. (test cod e = 07104) 113 ML/MIN/1.73 eGFR NON- AMER. (test code = 15759) 97 ML/MIN/1.73 CALC BUN/CREAT (test code = [...] code = 2219) 47 U/L COMPREHENSIVE METABOLIC [id number] 00:00:00* Test Item Value Reference Range Interpretation Comme nts GLUCOSE (test code = 2217) 120 MG/DL BUN (test code = 2208) 22 MG/DL CREATININE (test code = 2214) 0.81 MG/DL eGFR AMER. (test cod e = 16579) 113 ML/MIN/1.73 eGFR NON- AMER. (test code = 80105) 97 ML/MIN/1.73 CALC BUN/CREAT (test code = [...] (test code = 2219) 47 U/L LIPID [id number] 00:00:00* Test Item Value Reference Range Interpretation Comme nts CHOLESTEROL (test code = 2210) 176 MG/DL TRIGLYCERIDES (test code = 2232) 55 MG/DL HDL CHOLESTEROL (test code = 2220) 73 MG/DL CALC LDL CHOL (test code = 2237) 92 MG/DL RISK RATIO LDL/HDL (test cod e = 2238) 1.26 RATIO LIPID [id number] 00:00:00* Test Item Value Reference Range Interpretation Comme nts CHOLESTEROL (test code = 2210) 176 MG/DL TRIGLYCERIDES (test code = 2232) 55 MG/DL HDL CHOLESTEROL (test code = 2220) 73 MG/DL CALC LDL CHOL (test code = 2237) 92 MG/DL RISK RATIO LDL/HDL (test cod e = 2238) 1.26 RATIO HEMOGLOBIN [id number] 00:00:00* Test Item Value Reference Range Interpretation Comme nts HEMOGLOBIN A1c (test code = 94565) 5.4 % HEMOGLOBIN [id number] 00:00:00* Test Item Value Reference Range Interpretation Comme nts HEMOGLOBIN A1c (test code = 11504) 5.4 % HEMOGLOBIN [id number] 00:00:00* Test Item Value Reference Range Interpretation Comme nts HEMOGLOBIN A1c (test code = 44106) 5.4 % CBC W/AUTO [id number] 00:00:00* Test Item Value Reference Range Interpretation [...] code = 1015) 135 K/UL CBC W/AUTO [id number] 00:00:00* Test Item Value Reference Range Interpretation [...] code = 1015) 135 K/UL CBC W/AUTO [id number] 00:00:00* Test Item Value Reference Range Interpretation [...] code = 1015) 135 K/UL COMPREHENSIVE METABOLIC [id number] 00:00:00* Test Item Value Reference Range Interpretation Comme nts GLUCOSE (test code = 2217) 120 MG/DL BUN (test code = 2208) 22 MG/DL CREATININE (test code = 2214) 0.81 MG/DL eGFR AMER. (test cod e = 68368) 113 ML/MIN/1.73 eGFR NON- AMER. (test code = 98872) 97 ML/MIN/1.73 CALC BUN/CREAT (test code = [...] code = 2219) 47 U/L COMPREHENSIVE METABOLIC [id number] 00:00:00* Test Item Value Reference Range Interpretation Comme nts GLUCOSE (test code = 2217) 120 MG/DL BUN (test code = 2208) 22 MG/DL CREATININE (test code = 2214) 0.81 MG/DL eGFR AMER. (test cod e = 10641) 113 ML/MIN/1.73 eGFR NON- AMER. (test code = 39690) 97 ML/MIN/1.73 CALC BUN/CREAT (test code = [...] (test code = 2219) 47 U/L LIPID [id number] 00:00:00* Test Item Value Reference Range Interpretation Comme nts CHOLESTEROL (test code = 2210) 176 MG/DL TRIGLYCERIDES (test code = 2232) 55 MG/DL HDL CHOLESTEROL (test code = 2220) 73 MG/DL CALC LDL CHOL (test code = 2237) 92 MG/DL RISK RATIO LDL/HDL (test cod e = 2238) 1.26 RATIO LIPID [id number] 00:00:00* Test Item Value Reference Range Interpretation Comme nts CHOLESTEROL (test code = 2210) 176 MG/DL TRIGLYCERIDES (test code = 2232) 55 MG/DL HDL CHOLESTEROL (test code = 2220) 73 MG/DL CALC LDL CHOL (test code = 2237) 92 MG/DL RISK RATIO LDL/HDL (test cod e = 2238) 1.26 RATIO HEMOGLOBIN [id number] 00:00:00* Test Item Value Reference Range Interpretation Comme nts HEMOGLOBIN A1c (test code = 31065) 5.4 % HEMOGLOBIN [id number] 00:00:00* Test Item Value Reference Range Interpretation Comme nts HEMOGLOBIN A1c (test code = 34470) 5.4 % CBC W/AUTO [id number] 00:00:00* Test Item Value Reference Range Interpretation [...] code = 1015) 135 K/UL CBC W/AUTO [id number] 00:00:00* Test Item Value Reference Range Interpretation [...] code = 1015) 135 K/UL COMPREHENSIVE METABOLIC [id number] 00:00:00* Test Item Value Reference Range Interpretation Comme nts GLUCOSE (test code = 2217) 120 MG/DL BUN (test code = 2208) 22 MG/DL CREATININE (test code = 2214) 0.81 MG/DL eGFR AMER. (test cod e = 58360) 113 ML/MIN/1.73 eGFR NON- AMER. (test code = 93185) 97 ML/MIN/1.73 CALC BUN/CREAT (test code = [...] (test code = 2219) 47 U/L LIPID [id number] 00:00:00* Test Item Value Reference Range Interpretation Comme nts CHOLESTEROL (test code = 2210) 176 MG/DL TRIGLYCERIDES (test code = 2232) 55 MG/DL HDL CHOLESTEROL (test code = 2220) 73 MG/DL CALC LDL CHOL (test code = 2237) 92 MG/DL RISK RATIO LDL/HDL (test cod e = 2238) 1.26 RATIO HEMOGLOBIN [id number] 00:00:00* Test Item Value Reference Range Interpretation Comme nts HEMOGLOBIN A1c (test code = 98141) 5.4 % URIC [id number] 00:00:00* Test Item Value Reference Range Interpretation Comme nts URIC ACID (test code = 2233) 4.6 MG/DL URIC [id number] 00:00:00* Test Item Value Reference Range Interpretation Comme nts URIC ACID (test code = 2233) 4.6 MG/DL URIC [id number] 00:00:00* Test Item Value Reference Range Interpretation Comme nts URIC ACID (test code = 2233) 4.6 MG/DL URIC [id number] 00:00:00* Test Item Value Reference Range Interpretation Comme nts URIC ACID (test code = 2233) 4.6 MG/DL URIC [id number] 00:00:00* Test Item Value Reference Range Interpretation Comme nts URIC ACID (test code = 2233) 4.6 MG/DL History and Physical Notes Date/Time Note Provider Source 2023-04-14 08:00:00 YDEm6BwNhli7x+QLPapFCvKBaRaAJDiG8+ //cdbnwD+bIBlR3wT7fHn4kgK6V32m1766 -09-14T08:00:00 INTERVENTIONAL RADIOLOGY HISTORY AND PHYSICALAttending: [facility]: [facility]: Joseph Sellers is a 63 year old [...] Resident: Tavia Mariscal Attestation Signer name: Christine Black I attest that I was present for [...] have reviewed and agree with the resident's note.80582-6Zkpdrrm and physical qtrcKF0293885Bmkry, Farhan1.2.840.518483.1.13.104.2.7. 2.323310QddabLewqqvXY8163-05-92V13 :03:18History and physical noteTXT1.2.840.351200.1.13.104.2.7 .2.637043|[id number] for patient sgje32892-9Sawldiy and physical noteLNRAD-VASCULAR & INTERVENTIONAL RADIOLOGYRAD-VASCULAR & INTERVENTIONAL RADIOLOGY[address] BcygSgptgzwkmXktzicjfnMOTZ41900498 01PFDNISCXTBPBSXILLNBCPZ0555-83-36 T15:03:181.2.840.655521.1.72.3.15| 1.2.840.957080.1.13.104.2.7.2.7278 [id number] RAD-VASCULAR & INTERVENTIONAL RADIOLOGY [facility] 2023-04-06 23:26:13 P6awT6btHZo3QCYRV0qliHoBiJz/QTUdqm 2o3YVxJGCLAXujcYcRWr0ZB4SGNEWO0081 -09-06T23:26:13 JEREMIAS [facility]: [facility] COMPLAINT: HCC s/p right [...] Angiogram of aorta (dissection protocol) imaging from [facility]. He was determined not to be [...] does not currently use drugs.Pt lives in [facility] and is independent in ADL but has a timekeeper supervisor which helps him with house chores and [...] stable. Anticipate discharge tomorrow. - Admit to [facility]- Basic admission labs - F/u CT Abd [...] patient's evaluation and management service. Parth Bills, [facility] of Internal MedicineY-3 | [place] Team ssociated attestation - Karen Keane MD - 04/07/2023 1:51 AM CDT After discussion with Dr. Jefe Hall, I examined this patient. I actively participated in the decision-making process and I agree with resident's note as written.Karen Keane M.D.Internal Medicine Chief Resident|Clinical Instructor 69307-1Uvfjbeh and physical ectmKV4322191Kzrhnyo, Sarah1.2.840.425364.1.13.104.2.7.2 .634646BqasxshBwnnyMT6879-16-81Y54 :51:08History and physical noteTXT1.2.840.226931.1.13.104.2.7 .2.935307|[id number] for patient ifhw73080-8Zcfgset and physical noteLNUTMB[address] GlqyQcgtuhwdxQmcbajnrgQASQ24154639 07XMUKYMRGCBTJENCRROWFIJ1335-35-61 T01:51:081.2.840.315096.1.72.3.15| 1.2.840.356333.1.13.104.2.7.2.7278 [id number] [facility] Procedure Notes Date/Time Note Provider Source 2023-04-14 08:00:00 t0TD9GO25R7aGz1LJyO+ ++YCOc3+n fVV+bq2xXBMewxj9a8Mvs3/hOdCwS eH4fko8813-85-31A89:00:00Form atting of this note might be different from the original..VASCULAR AND INTERVENTIONAL RADIOLOGY PROCEDURE NOTE Pre-procedure diagnosis: 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 Post-procedure diagnosis: Same. Procedure: Left HYDRAULIC SPINNER US guided access sheath placement ( CPT 96647, 16887)Proper hepatic artery catheterization and arteriogram (CPT 10676,17534)Left hepatic artery catheterization and arteriogram (CPT 01431,62481)MAA injection at the level of left hepatic arteries shared trunkLeft HYDRAULIC SPINNER arteriotomy hemostasis using manual compression. Anesthesia: IV fentanyl and IV versed.Local 1% lidocaine. Findings: Successful infusion of 3 mCi of Tech MAA at the level of left hepatic artery. Successful achievement of hemostasis at the left HYDRAULIC SPINNER arteriotomy using manual compression. Complications: None Condition: [...] have reviewed and agree with the resident's note.70996-4Nfjgzlgmv qnzxPJ9010542Zlamv, Farhan1.2.840.870790.1.13.104 .2.7.2.552922AtmutXdxmryOU017 10-07-13T17:20:48Procedure noteTXT1.2.840.790654.1.13.10 4.2.7.2.578243|[id number] ailable for patient naxc63152-5Cppzjmded noteLNRAD-VASCULAR & INTERVENTIONAL RADIOLOGYRAD-VASCULAR & INTERVENTIONAL RADIOLOGY[address]vestonTXTX[address] 1923554NQVFRMNEWVYFMHBKPDYNQL 5397-05-59D29:20:481.2.840.11 4350.1.72.3.15|1.2.840.595904 .1.13.104.2.7.2.727879_[id number] RAD-VASCULAR & INTERVENTIONAL RADIOLOGY [facility] Notes Date/Time Note Provider Source 2023-07-21 10:25:01 qp5ZsCz6hNls+vwv34AC mnTk4k5gkT pleltdIbuqx8JAkYXs0+p8+fzebuTs aDfO5980-31-86D27:25:01Formatt ing of this note might be different from the original.I called patient to relay answer to his question about carvedilol. Patient voiced understanding of the reason he is taking the medication. 65861-4Ffgqoileb encounter HnluUQ1010-85-46I68:26:27Telep beth encounter NoteTXT1.2.840.294368.1.13.104 .2.7.2.902985|[id number] lable for patient yfmr48965-3OhbiIORFCJYLKUEQvgn atted C-CDA narrative xafo746200063Lojjdww L Allen RN[address]vestonTXTX[address] 000122RUZIEDGLGGWABCEPRUTBXW25 23-07-21T10:26:271.2.840.67311 0.1.72.3.15|1.2.840.399999.1.1 3.104.2.7.2.727879_[id number] Wily Stovall RN [facility] 2023-07-21 09:02:54 3lhbwABPTfXJ1KHKeBac KvAVuz3dJ/ sA++KeG+AHpw/TwtfIB3wFmDJK+thai ZLL27349-75-09C20:02:54Formatt ing of this note might be different [...] PA-C 07/21/2023 9:03 AMDivision of Gastroenterology and HepatologyEast [facility] 31782-8Ymdjhqqvi encounter CophPZ7798-12-24G69:04:44Telep beth encounter NoteTXT1.2.840.369733.1.13.104 .2.7.2.835181|[id number] lable for patient ytss55293-2VegtDBQMDCLITIKLyhi atted C-CDA narrative textUT[address] FyweOnixruxtbDenzgqgutOBFV4171 845420QERZUIPNBXHDBLLFMXDUBM37 23-07-21T09:04:441.2.840.99149 0.1.72.3.15|1.2.840.810643.1.1 3.104.2.7.2.727879_[id number] [facility] 2023-07-20 14:34:08 yf5DMa0tYgWylnhnzd0E pymF+yzx/m xd+flzNXMozEbqdMT8WtTiCXQEtPeS UgYj3724-05-48K70:34:08Formatt ing of this note might be different from the original.Joseph Sellers is a 63 year old male pt is calling because he is concerned the the medication id for heat issues not GI.Please call pt to confirm the medication carvediloL 3.125 mg tabletPlease advise 59174-5Xwfkwunuj encounter GlvcKA3929-53-46M12:36:12Telep beth encounter NoteTXT1.2.840.175337.1.13.104 .2.7.2.625892|4044957753KXCmli lable for patient aiul01433-0LvlpUJGWTUNEHHOHxbc atted C-CDA narrative mzsv625179097Lotwfpq H Hollinger[address] CavgBeyenzchlAlixrvgbqTYVX0039 760533YKDYBRCQWUKSFDZKDOYIHT98 23-07-20T14:36:121.2.840.36569 0.1.72.3.15|1.2.840.479390.1.1 3.104.2.7.2.727879_[id number] Annabelle Gandhi [facility] 2023-04-07 15:20:00 IUsxy7/uGgRyF3HURY7f qNMbElEkX1 hW7u5jpEoTq79wZ+KL/ORqKH8F+UQC tgcq2326-38-26O42:20:00Formatt ing of this note might be different from the original.Patient given discharge instructions and verbalized understanding. IV removed with tip intact. Patient accompanied to private auto by family member. Patient in stable condition. 31872-5Xfira YmxxKI8180-44-72V18:39:32Nurse NoteTXT1.2.840.192718.1.13.104 .2.7.2.117006|2792725492SZZsgo lable for patient srhg38043-4GhsnTB104508037Mhof gretta Herrmann RN[address] MuhaXqbyuxehbZauknkmziZBCY3392 779351VDRXSUXPTVRLRBKWUDJFJV71 23-04-07T16:39:321.2.840.80197 0.1.72.3.15|1.2.840.160654.1.1 3.104.2.7.2.727879_[id number] Wei Herrmann RN [facility] 2023-04-07 14:52:24 Qx0mtdnLzKeMlbYshTn3 jPB3np606P J785yqhSONZjjhLBOyYaXSgN5J7YaQ 5VkA1600-56-91C57:52:24Formatt ing of this note might be different [...] by Wei Herrmann RNOutcome: Progressing as expected 69669-7Ogib of care sgbqAC2692-51-28M83:52:27Plan of care noteTXT1.2.840.751237.1.13.104 .2.7.2.841238|2427425568JPGbzo lable for patient kpjc74452-8KoblXIBPCMHYRE[address]TX[address] 934652ZWUSSJVDMMBXNKJWTAFIUX65 23-04-074:52:271.2.840.25860 0.1.72.3.15|1.2.840.507798.1.1 3.104.2.7.2.727879_[id number] [facility] 2023-04-07 12:39:18 C2ww08jHrjlkWN0nlG6U c8nte6P7ya v9+ZI8QfvEK3Sa6l9RBhv+nqGXXcYC R3345794-40-39N39:39:18Formatt ing of this note might be different from the original.Problem: PainGoal: Control of pain at or below patient's documented comfort goalOutcome: Progressing as expectedGoal: Reduction in pain sensationOutcome: Progressing as expected Problem: Urinary Elimination - ImpairedGoal: Return to baseline elimination patternOutcome: Progressing as expected Problem: Falls, Risk ofGoal: Absence of fallsOutcome: Progressing as expected 58107-2Seiz of care ezijNQ7011-34-98X74:39:28Plan of care noteTXT1.2.840.252540.1.13.104 .2.7.2.694601|5233478777CGDdub lable for patient ghqu03575-9PmkdGANNNBDZHV[address] StreetTXTX[address] 222211NQIPEHSHXTWRRWZHYQABDV13 23-04-07T12:39:281.2.840.57287 0.1.72.3.15|1.2.840.954013.1.1 3.104.2.7.2.727879_[id number] [facility] 2023-04-07 08:52:19 39C1hTulAhyw1t/J5Vbx nzIEd9WZrT UO/7W+x/muaCEUkPGgo44eixyGt051 mSf/9290-71-58W97:52:19Formatt ing of this note might be different from the original.Lott catheter removed per MD's order. Will continue to monitor UOP 68695-7Vqbta BurmYJ7224-71-45F03:53:26Nurse NoteTXT1.2.840.457447.1.13.104 .2.7.2.133389|2554219314SFAgza lable for patient csug87220-6JbwzBMMSNWPFBP[address] BzpoBswuvcqvhSjememcoaKCFR5216 388729XQWBBVPGEKLJQNGPBDIULC56 23-04-0708:53:261.2.840.02631 0.1.72.3.15|1.2.840.530745.1.1 3.104.2.7.2.727879_[id number] [facility] 2023-04-06 21:00:32 X8fF0RAJ2n82TtdA7Bn7 RD5nohIJEi /fNdkXTXwluLR9E8oM+H5rhrUHlOBp BoPS0711-62-51S54:00:32Summary : Post Y-90 Procedure @192 patient was taken by serafin from Procedure Room #5 to [facility] to be scanned. Patient remained intubated and under care of anesthesia team. @2009 Post scan, patient was extubated by anesthesia while still in [facility], patient tolerated extubation well, was able to speak and communicate with care team. @2034 patient was delivered to [facility] PACU escorted by anesthesia and IR nurse on monitor. Patient tolerated transfer well and was left under care of JEZ Newberry in PACU. 29476-1Atbjs OffxUU1929-90-79U20:06:14Nurse NoteTXT1.2.840.853202.1.13.104 .2.7.2.856343|2642876978EVDcxg lable for patient ytfi96435-8Ywhhi UpllXG593093394EkkfqKam Lopez RN[address]TX[address] 174935SCCSZLIJJMRTONNOWURBPS89 23-04-06:06:141.2.840.55866 0.1.72.3.15|1.2.840.819113.1.1 3.104.2.7.2.727879_[id number] Kam Lopez RN [facility] 2023-04-06 16:25:00 qtZE7QmI08+SIeogynZW fHEDXWZKV3 Zqp1h7zHUzczzYq3tHDz239q7I0oMN /t5s0843-24-04C60:25:00Formatt ing of this note might be different from the original.Pt and anesthesia in the room. Pt in care of anesthesia. See their notes for vital signs, medications, and other documentation. 37236-1Rtluk UsucIL2653-17-74X80:09:22Nurse NoteTXT1.2.840.267695.1.13.104 .2.7.2.112412|8267286138UGLuaf lable for patient qabv40964-8NurwVA301620240Vyl E Smith RN[address]TXTX[address] 711541EOJEUWMSIIOSMOJUCMFEDE76 23-04-067:09:221.2.840.21957 0.1.72.3.15|1.2.840.135532.1.1 3.104.2.7.2.727879_[id number] Suzan Pillai RN [facility] 2023-04-01 09:00:00 kMVGaHf2XZIO46cDWkrL CNEQjRa3yW m0WfdGl8Eve5Ct2vI084B4j9cC3HvN gjwi2400-04-75J25:00:00Formatt ing of this note might be different from the original.Pt vss. Right groin w/o hematoma. Dressing clean dry intact. Distal pulses palpable. 11778-3Jkgij VtftYV3639-13-29Q97:13:54Nurse NoteTXT1.2.840.102069.1.13.104 .2.7.2.425174|1629838686WQBljb lable for patient xvto17952-5FnwoQT359906091Sws E Smith RN[address]TX[address] 604951VEEOEJRCDYKWGFMPMMIFFM63 23-04-01T13:13:541.2.840.28400 0.1.72.3.15|1.2.840.449533.1.1 3.104.2.7.2.727879_[id number] Suzan Pillai RN [facility] 2023-03-10 11:00:00 3pTpb9eQ4GwrWxx3aSb0 ldEjSQ7TtG QIpYXiGfaO8ADvglx8dagnQR1BoOAK zCts3692-68-88R82:00:00Formatt ing of this note is different from [...] processed according to instructions and sent to [facility] laboratories per lab order on 03/10/2023: LT BLUE 1 SST 1 RED LAV 1 PPT DK GREEN (LiHep) DK GREEN (SodH) BETANCOURT DK BLUE (K2) DK BLUE (S) ACD Blood Culture NIPT/NTD 47749-9Ikwva CbvfLS8680-89-26H92:30:41Nurse NoteTXT1.2.840.755584.1.13.104 .2.7.2.557711|[id number] lable for patient lqpf19871-5Oqtsh NoteLNUT[address] NdkoUhxbdxenuXjnshmtunNXTO8612 770535CDLFWNDRVZBVPFWESNINXX98 23-03-101:30:411.2.840.19965 0.1.72.3.15|1.2.840.011243.1.1 3.104.2.7.2.727879_[id number] [facility]
--- NOTE | 2023-09-25 07:22 | ER ---
Nurse's Notes [facility] Name: Joseph Quach Age: 63 yrs Sex: Male : 1960 Arrival Date: 09/25/2023 Time: 06:24 Bed 8 Private MD: Diagnosis: History of falling;Altered mental status, unspecified;Encephalopathy, unspecified-Hepatic;Other ascites;Unspecified cirrhosis of liver-HEPATITIS C;Malignant neoplasm of liver, not specified as primary or secondary;Hypoglycemia, unspecified;Severe sepsis with septic shock;Hyperkalemia;Hypotension, unspecified;Abdominal tenderness Presentation: 09/25 06:34 Chief complaint: Patient states: "I stood up to go to the bedroom and I fell. I was jw7 able to catch myself so I didn't hit my head or loose consciousness. I did get dizzy when I stood up. Since I fell my stomach has started hurting and I'm short of breath". Care prior to arrival: None. Mechanism of Injury: Fall from standing position. Trauma event details: Injury occurred in the [facility], Injury occurred: at home. Injury occurred: September 25, 2023. 06:34 Acuity: AISLINN 2 jw7 06:34 Method Of Arrival: EMS: [facility] 06:46 Coronavirus screen: At this time, the client does not indicate any symptoms associated [facility] with coronavirus-19. Ebola Screen: No symptoms or risks identified at this time. Initial Sepsis Screen: Does the patient meet any 2 criteria? RR > 20 per min. Mean Arterial Pressure (MAP) < 65. HR > 90 bpm. Yes Does the patient have a suspected source of infection? No. Patient's initial sepsis screen is negative. Risk Assessment: Do you want to hurt yourself or someone else? Patient reports no desire to harm self or others. Onset of symptoms was September 25, 2023. Historical: - Allergies: 06:47 Fish Containing Products; jw7 - PMHx: 06:47 angina pectoris; cirrhosis of liver; COPD; High Cholesterol; Hypertensive disorder; jw7 Myocardial infarction; - Immunization history:: Adult Immunizations up to date, Client reports having NOT received the Covid vaccine. Pneumococcal vaccine is up to date, Flu vaccine is up to date. - Immunization history: Last tetanus immunization: < 10 years ago. - Social history:: Smoking status: Patient denies any tobacco usage or history of. Patient/guardian denies using alcohol, street drugs, IV drugs. - Family history:: not pertinent. Screenin:41 Abuse screen: Denies threats or abuse. Denies injuries from another. Tuberculosis jw7 screening: No symptoms or risk factors identified. 06:48 [facility] ED Fall Risk Assessment (Adult) History of falling in the last 3 months, jw7 including since admission Yes- physiologic fall (2 pts) Confusion or Disorientation No (0 pts) Intoxicated or Sedated No (0 pts) Impaired Gait Yes (1 pt) Mobility Assist Device Used Yes (1 pt) Altered Elimination Yes (1 pt) Score/Fall Risk Level 3 or more points = High Risk Oriented to surroundings, Maintained a safe environment, Educated pt \\T\\ family on fall prevention, incl call for assistance when getting out of bed, Assessed \\T\\ reinforced patient's understanding of fall precautions. Nutritional screening: No deficits noted. Primary Survey: 06:34 NO uncontrolled hemorrhage observed. A: Oxygen via nasal cannula at 3 liters per jw7 minute. Breathing/Chest: Respiratory effort: grunting, labored, Respiratory pattern: tachypnea, Chest inspection: symmetrical rise and fall of the chest. Circulation: No external hemorrhage present. Regular and strong central pulse, skin warm/dry/normal color. Disability Pupils are equal, round, reactive to light and accommodation. Client is alert. Exposure/Environment: All clothing and personal items were removed. Forensic evidence collection is not deemed to be indicated at this time. Items placed in patient belonging bag. There is no evidence of uncontrolled external bleeding. No obvious injuries are noted at this time. A warming method has been applied: A warm blanket has been provided to the patient. 07:00 Reassessment Breathing: Respiratory effort Grunting Labored Respiratory pattern jw7 Tachypnea Chest inspection Symmetrical Circulation: Heart rhythm Sinus rhythm Heart tones Present Pulses Palpable Color Other Jaundiced Temperature Warm Disability: Pupils Pupils are equal, round, reactive to light and accomodation. Alert. Assessment: 06:34 General: Appears distressed, uncomfortable, ill, obese, Behavior is calm, cooperative. jw7 Pain: Complains of pain in abdomen Pain does not radiate. Pain currently is 8 out of 10 on a pain scale. Quality of pain is described as sharp, Pain began suddenly, Is continuous. Neuro: Drew Agitation-Sedation Scale (RASS): 0 - Alert and Calm Level of Consciousness is awake, alert, obeys commands, Oriented to person, place, time, situation. EENT: No deficits noted. No signs and/or symptoms were reported regarding the EENT system. Cardiovascular: Capillary refill < 3 seconds Patient's skin is warm and dry. Respiratory: Airway is patent Trachea midline Respiratory effort is even, labored, Respiratory pattern is symmetrical, tachypnea. GI: Abdomen is round non-distended, Reports lower abdominal pain, upper abdominal pain. : No deficits noted. No signs and/or symptoms were reported regarding the genitourinary system. Derm: Skin is intact, is fragile, Skin is dry, Skin is jaundiced, Skin temperature is warm. Musculoskeletal: Circulation, motion, and sensation intact. Range of motion:. 07:20 General: Appears uncomfortable, ill, Behavior is cooperative, anxious. Pain: Complains ph of pain in abdomen. Neuro: Level of Consciousness is awake, alert, obeys commands, Oriented to person, place, time, situation. Cardiovascular: Capillary refill < 3 seconds in bilateral fingers Patient's skin is warm and dry. Rhythm is sinus tachycardia. Respiratory: Airway is patent Respiratory effort is labored, Respiratory pattern is tachypnea. GI: Abdomen is round distended, noted to have ascites, Reports lower abdominal pain, upper abdominal pain, Patient currently denies bloody stool, nausea, vomiting. : No signs and/or symptoms were reported regarding the genitourinary system. EENT: Sclera/Cornea jaundiced . Derm: Skin is fragile, is thin, Skin is dry, Skin is jaundiced, Skin temperature is warm. 08:30 Reassessment: Patient appears in no apparent distress at this time. Patient and/or ph family updated on plan of care and expected duration. Pain level reassessed. Patient is alert, oriented x 3, equal unlabored respirations, skin warm/dry/pink. 09:30 Reassessment: Patient appears in no apparent distress at this time. No changes from ph previously documented assessment. 11:30 Reassessment: Verbal consent for blood products from TSERING Quach Jr, received ph over the phone. 15:07 Reassessment: Patient appears in no apparent distress at this time. Patient and/or ph family updated on plan of care and expected duration. Pain level reassessed. Patient is alert, oriented x 3, equal unlabored respirations, skin warm/dry/pink. Pt c/o abdominal pain, Dr Campbell notified, verbal order received for Fentanyl IVP 25 mcg, see MAR. 16:17 Reassessment: Attempted to call report to [facility], receiving nurse unavailable ph and charge nurse could not take report. will call back. 16:50 Reassessment: Attempted to call report, receiving nurse stated that he was unable to ph accept pt on unit d/t pt receiving Levophed, pt requires ICU bed. 20:29 Reassessment: Patient appears in no apparent distress at this time. No changes from tm6 previously documented assessment. Patient and/or family updated on plan of care and expected duration. Pain level reassessed. Patient is alert, oriented x 3, equal unlabored respirations, skin warm/dry/pink. 21:03 Reassessment: report attempted. tm6 21:27 Reassessment: report given to Elizabeth STORY at [facility]. tm6 21:27 Reassessment: Patient appears in no apparent distress at this time. No changes from tm6 previously documented assessment. Patient and/or family updated on plan of care and expected duration. Pain level reassessed. Patient is alert, oriented x 3, equal unlabored respirations, skin warm/dry/pink. 21:55 Reassessment: patient clean and dry. report given to [facility]. tm6 Vital Signs: 06:41 BP 110 / 45; Pulse 102; Resp 26 S; Temp 98.7(O); Pulse Ox 97% on 3 lpm NC; Weight 87.09 jw7 kg; Height 5 ft. 11 in. ; Pain 8/10; 07:00 BP 81 / 54; Pulse 97; Resp 18; Pulse Ox 94% on 3 lpm NC; ph 07:15 BP 89 / 43; Pulse 102; Resp 24; Pulse Ox 91% on 3 lpm NC; ph 08:00 BP 79 / 46; Pulse 107; Resp 22; Pulse Ox 92% on 3 lpm NC; ph 08:30 BP 89 / 43; Pulse 102; Resp 24; Pulse Ox 93% on 3 lpm NC; ph 09:00 BP 80 / 48; Pulse 95; Resp 22; Pulse Ox 94% on 3 lpm NC; ph 09:30 BP 73 / 48; Pulse 94; Resp 24; Pulse Ox 95% on 3 lpm NC; ph 10:00 BP 78 / 52; Pulse 91; Resp 18; Pulse Ox 95% on 3 lpm NC; ph 10:40 BP 67 / 46; Pulse 91; Resp 24; Pulse Ox 98% on R/A; ph 11:15 BP 75 / 43; Pulse 90; Resp 24; Pulse Ox 91% on 3 lpm NC; ph 11:45 BP 68 / 46; Pulse 92; Resp 18; Pulse Ox 93% on 3 lpm NC; ph 12:15 BP 72 / 50; Pulse 89; Resp 22; Pulse Ox 92% on 3 lpm NC; ph 12:48 BP 77 / 47; Pulse 95; Resp 18; Pulse Ox 91% on 3 lpm NC; ph 13:15 BP 79 / 49; Pulse 94; Resp 22; Temp 97.4; Pulse Ox 91% on 3 lpm NC; ph 13:45 BP 84 / 51; Pulse 96; Resp 22; Pulse Ox 94% on 3 lpm NC; ph 14:06 BP 84 / 51; Pulse 96; Resp 18; Temp 97.4; Pulse Ox 91% on 3 lpm NC; ph 14:30 BP 84 / 57; Pulse 95; Resp 18; Pulse Ox 93% 3 lpm ; ph 14:56 BP 92 / 65; Pulse 93; Resp 18; Pulse Ox 92% on 2 lpm NC; ph 15:07 BP 92 / 61; Pulse 95; Resp 18; Pulse Ox 92% on 3 lpm NC; ph 15:47 BP 89 / 62; Pulse 97; Resp 18; Pulse Ox 93% on 3 lpm NC; ph 16:15 BP 97 / 63; Pulse 96; Resp 18; Pulse Ox 94% on 3 lpm NC; ph 16:45 BP 107 / 68; Pulse 98; Resp 22; Pulse Ox 95% on 3 lpm NC; ph 17:33 BP 102 / 68; Pulse 93; Resp 18; Pulse Ox 94% on 3 lpm NC; ph 18:35 BP 98 / 60; Pulse 96; Resp 18; Pulse Ox 93% on 3 lpm NC; ph 20:28 BP 96 / 66; Pulse 97; Resp 18; Pulse Ox 93% on 3 lpm NC; Pain 10/10; tm6 21:31 BP 106 / 69; Pulse 98; Resp 19; Pulse Ox 94% on 3 lpm NC; Pain 10/10; tm6 21:54 BP 116 / 77; Pulse 95; Resp 20; Pulse Ox 95% on 3 lpm NC; tm6 06:41 Body Mass Index 26.78 (87.09 kg, 180.34 cm) jw7 06:41 Pain Scale: Adult jw7 20:28 Pain Scale: Adult tm6 21:31 Pain Scale: Adult tm6 Blandford Coma Score: 06:41 Eye Response: spontaneous(4). Motor Response: obeys commands(6). Verbal Response: jw7 oriented(5). Total: 15. Trauma Score (Adult): 06:41 Eye Response: spontaneous(1); Verbal Response: oriented(1); Motor Response: obeys jw7 commands(2); Systolic BP: > 89 mm Hg(4); Respiratory Rate: 10 to 29 per min(4); Blandford Score: 15; Trauma Score: 12 ED Course: 06:25 Patient arrived in ED. jj6 06:26 Rajendra Jauregui MD is Attending Physician. rt 06:36 Triage completed. jw7 06:41 Patient has correct armband on for positive identification. Bed in low position. Call jw7 light in reach. Side rails up X2. Oxygen administration via nasal cannula \\T\\ 3L/min. Client placed on continuous cardiac and pulse oximetry monitoring. NIBP monitoring applied. 06:41 Oxygen administration via nasal cannula \\T\\ 3L/min Response to oxygen therapy: symptoms jw7 improved. 06:47 Arm band placed on. jw7 06:48 Thermoregulation: warm blanket given to patient. jw7 06:55 Chest Single View XRAY In Process Unspecified. EDMS 07:04 Attending Physician role handed off by Rajendra Jauregui MD angelo 07:04 Sohail Campbell MD is Attending Physician. angelo 07:54 CT Traumagram (Head C Spine CAP wo con) In Process Unspecified. EDMS 07:56 Yaneth Valentin, JEZ is Primary Nurse. ph 08:52 initiated a transfer with Uziel from the [facility]. eb 09:15 connected the it network administrator butadiene convertor operator for [facility] with Dr. Campbell for patient eb transfer consultation. 10:40 Inserted saline lock: 18 gauge in right EJ, using aseptic technique. ,using aseptic ph technique. by Dr Campbell. 13:00 Lott cath inserted, using sterile technique, 16 Fr., by mo, balloon inflated, to ph gravity drainage, urine specimen collected. 13:45 Assisted provider with central line placement. Set up central line tray. Triple lumen ph line placed in right femoral. Line placed by Sohail Campbell MD Placement verified by blood return, Dressed with Tegaderm, Blood was collected. Patient tolerated poorly. Before procedure, did Practitioner(s) obtain informed consent? Yes. Patient \\T\\ family education about procedure, CLABSI prevention and S/S of infection? Yes. Time-out/Briefing performed prior to start of procedure? Yes. Was handwashing/sanitizing done immediately prior to procedure? Yes. Was patient positioned to in a way to prevent air embolism? Yes. Was procedure site sterilized? Yes, with chlorhexidine. Was the site allowed to dry? Yes. Was local anesthetic and/or sedation utilized? Yes. During the procedure, did the Practitioner(s) maintain a sterile field? Yes. Were unused ports clamped during insertion? Yes. Was a 2nd qualified MD obtained after 3 unsuccessful insertion attempts? No. Was blood aspirated from each lumen? Yes. After the procedure, did the Practitioner(s) clean the site and apply a sterile dressing? Yes. 14:02 called [facility] for transfer update. talked to Ky and lacy sp stated still waiting on discharges for bed placement. 15:31 called [facility] for transfer update. talked to Olivia. stated sp cleaning a bed and will call back with approval. 15:54 UZIEL HENSLEY CALLED WITH ADMIN APPROVAL TO [facility] [address] FREYA OSBORN ACCEPTED PT. sp BED PC #[id number] REPORT NUMBER [phone] FAXED FACESHEET TO [phone]. 16:04 Patient transferred, IV remains in place. ph 16:30 Pelvis XRAY In Process Unspecified. EDMS 21:00 Notified ED physician of a critical lab result(s). All 4 blood cultures positive, gram vc1 negative rods. 21:56 Provided Education on: need for transfer. tm6 Administered Medications: 07:05 Drug: NS 0.9% IV 1000 ml IV at 1 bolus Per protocol; 1000 mL bolus Route: IV; Rate: 1 ph bolus; Site: right forearm; 07:10 Drug: Cefepime IVPB 2 grams IVPB at 200 ml/hr once over 30 mins; (mix in NS 100 mL) ph Route: IVPB; Rate: 200 ml/hr; Infused Over: 30 mins; Site: right forearm; 07:10 Drug: Pantoprazole IVP 40 mg IVP once Route: IVP; Site: right forearm; ph 08:10 Drug: fentaNYL (PF) IVP 50 mcg IVP once Route: IVP; Site: right femoral; ph 19:28 Follow up: Response: No adverse reaction ph 08:40 Drug: D10 in Water IVP 250 ml IVP once Route: IVP; Site: right antecubital; ph 10:00 Drug: NS 0.9% IV 1000 ml IV at 1 bolus Per protocol; 1000 mL bolus Route: IV; Rate: 1 ph bolus; Site: right forearm; 10:45 Follow up: Response: No adverse reaction; IV Status: Completed infusion ph 10:00 Drug: D5-NS IV 1000 ml IV at 125 ml/hr continuous Route: IV; Rate: 125 ml/hr; Site: ph right forearm; 19:31 Follow up: IV Status: Infusion continued upon transfer ph 10:30 Drug: Phytonadione Sub-Q 10 mg Sub-Q once Route: Sub-Q; Site: right lower abdomen; ph 10:38 Drug: Albuterol Inhalation 5 mg Inhalation once Route: Inhalation; ph 10:38 Drug: Albumin IVPB 25 grams 100 ml IVPB once; (Note: Albumin 25% concentration) Volume: ph 100 ml; Route: IVPB; Site: right jugular; 11:40 Follow up: Response: No adverse reaction; IV Status: Completed infusion ph 10:39 Drug: Ipratropium Inhalation Aerosol 0.5 mg Inhalation once Route: Inhalation; ph 11:07 Drug: NS 0.9% IV 500 ml IV at bolus once Route: IV; Rate: bolus; Site: right jugular; ph 11:30 Follow up: Response: No adverse reaction; IV Status: Completed infusion; IV Intake: ph 500ml 11:08 Drug: Kayexalate PO 30 grams PO once Route: PO; ph 14:05 Drug: Viscous Lidocaine Mucous Membrane Liquid (4 %) 5 ml Mucous Membrane once Route: ph Mucous Membrane; 19:30 Follow up: Response: No adverse reaction ph 14:25 Drug: metroNIDAZOLE IVPB 500 mg 100 ml IVPB at 200 ml/hr once over 30 mins Volume: 100 ph ml; Route: IVPB; Rate: 200 ml/hr; Infused Over: 30 mins; Site: right femoral; 15:00 Follow up: Response: No adverse reaction; IV Status: Completed infusion ph 14:30 Drug: Norepinephrine IV 0.1 mcg/kg/min IV at calculated rate See Administration ph Instructions; (Standard concentration 4 mg / 250 mL D5W); Recommended max rate 3 mcg/kg/min; Titrate 0.05 mcg/kg/min as often as every 5 minutes to achieve goal (see titration policy); Goal parameter MAP greater than 65 mmHg. {Note: started at 2 mcg/min.} Route: IV; Rate: calculated rate; Site: right femoral; 19:30 Follow up: Response: No adverse reaction; IV Status: Infusion continued upon transfer ph 15:09 Drug: fentaNYL (PF) IVP 25 mcg IVP once Route: IVP; Site: right forearm; ph 19:30 Follow up: Response: No adverse reaction ph 15:35 Drug: fentaNYL (PF) IVP 25 mcg IVP once Route: IVP; Site: right forearm; ph 19:30 Follow up: Response: No adverse reaction ph 16:10 Drug: fentaNYL (PF) IVP 25 mcg IVP once Route: IVP; Site: right forearm; ph 19:30 Follow up: Response: No adverse reaction ph 20:28 Drug: fentaNYL (PF) IVP 50 mcg IVP once Route: IVP; Site: Other; tm6 21:50 Drug: fentaNYL (PF) IVP 50 mcg IVP once Route: IVP; Site: Other; tm6 Medication: 07:00 VIS not applicable for this client. jw7 12:15 Blood products: FFP X 1 unit given. ph 13:30 Blood products: FFP X 1 unit given. ph Intake: 11:30 IV: 500ml; Total: 500ml. ph Outcome: 07:21 ER care complete, transfer ordered by MD. stephens 21:55 Transferred by ground EMS to [facility], [facility], tm6 21:55 Condition: stable 21:55 Instructed on the need for transfer, Demonstrated understanding of instructions, 21:56 Patient left the ED. tm6 Signatures: Dispatcher [employer] Sohail Thompson MD MD cha Pinkerton, Shawna sp Hall, Patricia, RN RN ph Anuja Ambrocio Jennifer jj6 Kyara Wick RN RN vc1 Abby Camarillo RN RN jw7 Rajednra Jauregui MD MD Peggy Oliva RN RN tm6 Corrections: (The following items were deleted from the chart) 10:39 10:39 D5-NS IV 1000 ml IV at 125 ml/hr in right forearm ph ph 15:56 11:30 Reassessment: Verbal consent from TSERING Quach Jr, received over the phone [facility]
--- NOTE | 2023-09-25 07:22 | EDPHYS ---
Physician Documentation [facility] Name: Joseph Quach Age: 63 yrs Sex: Male : 1960 Arrival Date: 09/25/2023 Time: 06:24 Bed 8 Private MD: ED Physician Sohail Campbell HPI: 09/25 06:35 This 63 yrs old Male presents to ER via Unassigned with complaints of Fall Injury. rt 06:35 Patient presents to the ED following fall. He states that he got up, felt lightheaded rt causing him to fall. Was too weak to get up. He states that he had worsening abdominal pain since the fall, denies hitting his head, no other acute injuries. Symptoms are moderate in severity, no other aggravating or elevating factors.. Historical: - Allergies: 06:47 Fish Containing Products; jw7 - PMHx: 06:47 angina pectoris; cirrhosis of liver; COPD; High Cholesterol; Hypertensive disorder; jw7 Myocardial infarction; - Immunization history:: Adult Immunizations up to date, Client reports having NOT received the Covid vaccine. Pneumococcal vaccine is up to date, Flu vaccine is up to date. - Immunization history: Last tetanus immunization: < 10 years ago. - Social history:: Smoking status: Patient denies any tobacco usage or history of. Patient/guardian denies using alcohol, street drugs, IV drugs. - Family history:: not pertinent. ROS: 06:35 Constitutional: Negative for fever, chills, and weight loss, Cardiovascular: Negative rt for chest pain, palpitations, and edema, Respiratory: Negative for shortness of breath, cough, wheezing, and pleuritic chest pain, MS/Extremity: Negative for injury and deformity, Skin: Negative for injury, rash, and discoloration, 06:35 Abdomen/GI: Positive for abdominal pain, Negative for vomiting, 06:35 Neuro: Positive for near syncope, weakness, Exam: 06:35 Constitutional: This is a well developed, well nourished patient who is awake, alert, rt and in no acute distress. Head/Face: Normocephalic, atraumatic. Chest/axilla: Normal chest wall appearance and motion. Nontender with no deformity. No lesions are appreciated. Cardiovascular: Regular rate and rhythm with a normal S1 and S2. No gallops, murmurs, or rubs. Normal PMI, no JVD. No pulse deficits. Respiratory: Lungs have equal breath sounds bilaterally, clear to auscultation and percussion. No rales, rhonchi or wheezes noted. No increased work of breathing, no retractions or nasal flaring. MS/ Extremity: Pulses equal, no cyanosis. Neurovascular intact. Full, normal range of motion. Neuro: Awake and alert, GCS 15, oriented to person, place, time, and situation. Cranial nerves II-XII grossly intact. Motor strength 5/5 in all extremities. Sensory grossly intact. Cerebellar exam normal. Normal gait. 06:35 Abdomen/GI: Mild distention, tenderness noted diffusely, no guarding, rebound, 06:35 Skin: Jaundice,. 09:58 ECG was reviewed by the Attending Physician. angelo Vital Signs: 06:41 BP 110 / 45; Pulse 102; Resp 26 S; Temp 98.7(O); Pulse Ox 97% on 3 lpm NC; Weight 87.09 jw7 kg; Height 5 ft. 11 in. ; Pain 8/10; 07:00 BP 81 / 54; Pulse 97; Resp 18; Pulse Ox 94% on 3 lpm NC; ph 07:15 BP 89 / 43; Pulse 102; Resp 24; Pulse Ox 91% on 3 lpm NC; ph 08:00 BP 79 / 46; Pulse 107; Resp 22; Pulse Ox 92% on 3 lpm NC; ph 08:30 BP 89 / 43; Pulse 102; Resp 24; Pulse Ox 93% on 3 lpm NC; ph 09:00 BP 80 / 48; Pulse 95; Resp 22; Pulse Ox 94% on 3 lpm NC; ph 09:30 BP 73 / 48; Pulse 94; Resp 24; Pulse Ox 95% on 3 lpm NC; ph 10:00 BP 78 / 52; Pulse 91; Resp 18; Pulse Ox 95% on 3 lpm NC; ph 10:40 BP 67 / 46; Pulse 91; Resp 24; Pulse Ox 98% on R/A; ph 11:15 BP 75 / 43; Pulse 90; Resp 24; Pulse Ox 91% on 3 lpm NC; ph 11:45 BP 68 / 46; Pulse 92; Resp 18; Pulse Ox 93% on 3 lpm NC; ph 12:15 BP 72 / 50; Pulse 89; Resp 22; Pulse Ox 92% on 3 lpm NC; ph 12:48 BP 77 / 47; Pulse 95; Resp 18; Pulse Ox 91% on 3 lpm NC; ph 13:15 BP 79 / 49; Pulse 94; Resp 22; Temp 97.4; Pulse Ox 91% on 3 lpm NC; ph 13:45 BP 84 / 51; Pulse 96; Resp 22; Pulse Ox 94% on 3 lpm NC; ph 14:06 BP 84 / 51; Pulse 96; Resp 18; Temp 97.4; Pulse Ox 91% on 3 lpm NC; ph 14:30 BP 84 / 57; Pulse 95; Resp 18; Pulse Ox 93% 3 lpm ; ph 14:56 BP 92 / 65; Pulse 93; Resp 18; Pulse Ox 92% on 2 lpm NC; ph 15:07 BP 92 / 61; Pulse 95; Resp 18; Pulse Ox 92% on 3 lpm NC; ph 15:47 BP 89 / 62; Pulse 97; Resp 18; Pulse Ox 93% on 3 lpm NC; ph 16:15 BP 97 / 63; Pulse 96; Resp 18; Pulse Ox 94% on 3 lpm NC; ph 16:45 BP 107 / 68; Pulse 98; Resp 22; Pulse Ox 95% on 3 lpm NC; ph 17:33 BP 102 / 68; Pulse 93; Resp 18; Pulse Ox 94% on 3 lpm NC; ph 18:35 BP 98 / 60; Pulse 96; Resp 18; Pulse Ox 93% on 3 lpm NC; ph 20:28 BP 96 / 66; Pulse 97; Resp 18; Pulse Ox 93% on 3 lpm NC; Pain 10/10; tm6 21:31 BP 106 / 69; Pulse 98; Resp 19; Pulse Ox 94% on 3 lpm NC; Pain 10/10; tm6 21:54 BP 116 / 77; Pulse 95; Resp 20; Pulse Ox 95% on 3 lpm NC; tm6 06:41 Body Mass Index 26.78 (87.09 kg, 180.34 cm) jw7 06:41 Pain Scale: Adult jw7 20:28 Pain Scale: Adult tm6 21:31 Pain Scale: Adult tm6 Luiz Coma Score: 06:41 Eye Response: spontaneous(4). Motor Response: obeys commands(6). Verbal Response: jw7 oriented(5). Total: 15. Trauma Score (Adult): 06:41 Eye Response: spontaneous(1); Verbal Response: oriented(1); Motor Response: obeys jw7 commands(2); Systolic BP: > 89 mm Hg(4); Respiratory Rate: 10 to 29 per min(4); Luiz Score: 15; Trauma Score: 12 Procedures: 10:30 Peripheral line: by aseptic technique a peripheral line was placed in the right angelo external jugular vein. 14:07 Central Line: the site was prepped with Betadine, in sterile fashion, a triple lumen [facility] catheter was inserted, in the right in 2 attempts. placement was verified, by blood return, the site was dressed with Tegaderm, using sterile technique, the patient tolerated the procedure, well. MDM: 06:27 Patient medically screened. rt 09:21 Differential diagnosis: abrasion, closed head injury, contusion, fracture, multiple angelo trauma, sprain, strain. Data reviewed: vital signs, nurses notes, EMS record, lab test result(s), EKG, radiologic studies, CT scan, plain films. Consideration of Admission/Observation Escalation of care including admission/observation considered. I considered the following discharge prescriptions or medication management in the emergency department Medications were administered in the Emergency Department. See MAR. Independent interpretation of the following test(s) in the Emergency Department EKG: See my EKG interpretation above. Test considered but Not performed: Ultrasound no abd usg. Historians other than the Patient: Family Member: son, well informed. Care significantly affected by the following chronic conditions: Hypertension, Congestive Heart Failure, Obesity, Cancer, Chronic Kidney Disease, Liver Disease, copd. Counseling: I had a detailed discussion with the patient and/or guardian regarding the historical points, exam findings, and any diagnostic results supporting the discharge/admit diagnosis, lab results, radiology results, the need to transfer to another facility, for higher level of care, [facility] does not immediately have the required specialist. 09/25 06:32 Order name: Blood Culture Adult (2) rt 09/25 06:32 Order name: CBC with Diff; Complete Time: 12:24 rt 09/25 06:32 Order name: CMP; Complete Time: 08:47 rt 09/25 06:32 Order name: Lactate w/ 2H reflex if indic.; Complete Time: 08:47 rt 09/25 06:32 Order name: Protime (+inr); Complete Time: 08:47 rt 09/25 06:32 Order name: Ptt, Activated; Complete Time: 08:47 rt 09/25 06:32 Order name: Urinalysis w/ reflexes; Complete Time: 17:53 rt 09/25 06:32 Order name: Lipase; Complete Time: 08:47 rt 09/25 06:32 Order name: NT PRO-BNP; Complete Time: 08:47 rt 09/25 06:32 Order name: Troponin HS; Complete Time: 08:47 rt 09/25 07:06 Order name: AMMONIA; Complete Time: 08:47 [facility] 09/25 08:18 Order name: Manual Differential; Complete Time: 12:24 EDMS 09/25 08:58 Order name: Bb Add On eb 09/25 09:04 Order name: T\T\S eb 09/25 09:20 Order name: Lactate w/ 2H reflex if indic.; Complete Time: 17:53 [facility] 09/25 10:17 Order name: Fresh Frozen Plasma [facility] 09/25 11:03 Order name: ABO/RH no charge; Complete Time: 12:24 [facility] 09/25 11:59 Order name: Lactate Sepsis 2 HR Follow-up; Complete Time: 12:24 EDMS 09/25 16:31 Order name: Glucose, Ancillary Testing; Complete Time: 17:53 [facility] 09/25 21:00 Order name: Gram Stain--Aerobic Bottle; Complete Time: 08:35 [facility] 09/25 21:00 Order name: Gram Stain--Anaerobic Bottle; Complete Time: 08:35 [facility] 09/25 21:05 Order name: Gram Stain--Aerobic Bottle [facility] 09/25 21:05 Order name: Gram Stain--Anaerobic Bottle [facility] 09/25 06:32 Order name: Chest Single View XRAY; Complete Time: 08:47 rt 09/25 07:07 Order name: CT Traumagram (Head C Spine CAP wo con); Complete Time: 08:47 [facility] 09/25 14:25 Order name: Pelvis XRAY; Complete Time: 17:53 [facility] 09/25 06:32 Order name: EKG; Complete Time: 06:33 rt 09/25 06:32 Order name: Accucheck; Complete Time: 07:41 rt 09/25 06:32 Order name: Cardiac monitoring; Complete Time: 06:49 rt 09/25 06:32 Order name: EKG - Nurse/Tech; Complete Time: 08:48 rt 09/25 06:32 Order name: IV Saline Lock - Large Bore; Complete Time: 07:41 rt 09/25 06:32 Order name: Labs collected and sent; Complete Time: 07:41 rt 09/25 06:32 Order name: O2 Per Protocol; Complete Time: 06:49 rt 09/25 06:32 Order name: O2 Sat Monitoring; Complete Time: 06:49 rt 09/25 06:32 Order name: Vital Signs; Complete Time: 06:49 rt 09/25 06:32 Order name: IV Saline Lock; Complete Time: 07:41 rt 09/25 07:06 Order name: IV Saline Lock - Large Bore; Complete Time: 08:49 [facility] 09/25 07:24 Order name: Labs - recollect needed: recollect all the blood/ hemolyzed per Courtney; eb Complete Time: 08:48 09/25 08:49 Order name: Lott; Complete Time: 15:09 [facility] 09/25 12:25 Order name: Central Line Kit; Complete Time: 12:38 angelo EC:58 Rate is 93 beats/min. Rhythm is regular. QRS [place] is Normal. CO interval is normal. QRS angelo interval is normal. QT interval is normal. No Q waves. T waves are Normal. No ST changes noted. Clinical impression: NSR w/ Non-specific ST/T Changes and No evidence of ischemia. Interpreted by me. Reviewed by me. Administered Medications: 07:05 Drug: NS 0.9% IV 1000 ml IV at 1 bolus Per protocol; 1000 mL bolus Route: IV; Rate: 1 ph bolus; Site: right forearm; 07:10 Drug: Cefepime IVPB 2 grams IVPB at 200 ml/hr once over 30 mins; (mix in NS 100 mL) ph Route: IVPB; Rate: 200 ml/hr; Infused Over: 30 mins; Site: right forearm; 07:10 Drug: Pantoprazole IVP 40 mg IVP once Route: IVP; Site: right forearm; ph 08:10 Drug: fentaNYL (PF) IVP 50 mcg IVP once Route: IVP; Site: right femoral; ph 19:28 Follow up: Response: No adverse reaction ph 08:40 Drug: D10 in Water IVP 250 ml IVP once Route: IVP; Site: right antecubital; ph 10:00 Drug: NS 0.9% IV 1000 ml IV at 1 bolus Per protocol; 1000 mL bolus Route: IV; Rate: 1 ph bolus; Site: right forearm; 10:45 Follow up: Response: No adverse reaction; IV Status: Completed infusion ph 10:00 Drug: D5-NS IV 1000 ml IV at 125 ml/hr continuous Route: IV; Rate: 125 ml/hr; Site: ph right forearm; 19:31 Follow up: IV Status: Infusion continued upon transfer ph 10:30 Drug: Phytonadione Sub-Q 10 mg Sub-Q once Route: Sub-Q; Site: right lower abdomen; ph 10:38 Drug: Albuterol Inhalation 5 mg Inhalation once Route: Inhalation; ph 10:38 Drug: Albumin IVPB 25 grams 100 ml IVPB once; (Note: Albumin 25% concentration) Volume: ph 100 ml; Route: IVPB; Site: right jugular; 11:40 Follow up: Response: No adverse reaction; IV Status: Completed infusion ph 10:39 Drug: Ipratropium Inhalation Aerosol 0.5 mg Inhalation once Route: Inhalation; ph 11:07 Drug: NS 0.9% IV 500 ml IV at bolus once Route: IV; Rate: bolus; Site: right jugular; ph 11:30 Follow up: Response: No adverse reaction; IV Status: Completed infusion; IV Intake: ph 500ml 11:08 Drug: Kayexalate PO 30 grams PO once Route: PO; ph 14:05 Drug: Viscous Lidocaine Mucous Membrane Liquid (4 %) 5 ml Mucous Membrane once Route: ph Mucous Membrane; 19:30 Follow up: Response: No adverse reaction ph 14:25 Drug: metroNIDAZOLE IVPB 500 mg 100 ml IVPB at 200 ml/hr once over 30 mins Volume: 100 ph ml; Route: IVPB; Rate: 200 ml/hr; Infused Over: 30 mins; Site: right femoral; 15:00 Follow up: Response: No adverse reaction; IV Status: Completed infusion ph 14:30 Drug: Norepinephrine IV 0.1 mcg/kg/min IV at calculated rate See Administration ph Instructions; (Standard concentration 4 mg / 250 mL D5W); Recommended max rate 3 mcg/kg/min; Titrate 0.05 mcg/kg/min as often as every 5 minutes to achieve goal (see titration policy); Goal parameter MAP greater than 65 mmHg. {Note: started at 2 mcg/min.} Route: IV; Rate: calculated rate; Site: right femoral; 19:30 Follow up: Response: No adverse reaction; IV Status: Infusion continued upon transfer ph 15:09 Drug: fentaNYL (PF) IVP 25 mcg IVP once Route: IVP; Site: right forearm; ph 19:30 Follow up: Response: No adverse reaction ph 15:35 Drug: fentaNYL (PF) IVP 25 mcg IVP once Route: IVP; Site: right forearm; ph 19:30 Follow up: Response: No adverse reaction ph 16:10 Drug: fentaNYL (PF) IVP 25 mcg IVP once Route: IVP; Site: right forearm; ph 19:30 Follow up: Response: No adverse reaction ph 20:28 Drug: fentaNYL (PF) IVP 50 mcg IVP once Route: IVP; Site: Other; tm6 21:50 Drug: fentaNYL (PF) IVP 50 mcg IVP once Route: IVP; Site: Other; tm6 Disposition Summary: 09/25/23 07:21 Transfer Ordered Notes: Transfer Location: [facility] angelo Reason: Higher level of care angelo Condition: Fair angelo Problem: new angelo Symptoms: have worsened angelo Accepting Physician: to [facility] liver team(09/25/23 21:56) tm6 Diagnosis - History of falling angelo - Altered mental status, unspecified angelo - Encephalopathy, unspecified - Hepatic angelo - Other ascites angelo - Unspecified cirrhosis of liver - HEPATITIS C angelo - Malignant neoplasm of liver, not specified as primary or secondary angelo - Hypoglycemia, unspecified angelo - Severe sepsis with septic shock angelo - Hyperkalemia angelo - Hypotension, unspecified angelo - Abdominal tenderness angelo Forms: - Medication Reconciliation Form angelo - SBAR form angelo Signatures: Dispatcher [employer] Sohail Thompson MD MD cha Hall, Patricia RN RN Anuja Huber Lacie, RN RN [email or web address] Abby Camarillo RN RN jw7 Rajendra Jauregui MD MD rt Severino Anaya MD MD ec2 Peggy Oliva RN RN tm6 Corrections: (The following items were deleted from the chart) 07:21 06:33 Abdomen Pelvis W Con+CT.RAD.BRZ ordered. EDMS EDMS 09: 07:21 to [facility] liver team angelo angelo 09: to [facility] angelo angelo : 10: to [facility] liver team angelo angelo : 10:32 to [facility] liver team [facility] 21: 12: to [facility] liver team [facility] tm6
[2023-09-25 08:14] LABS: Absolute Lymphocytes (CBC) 0.1 K/uL (0.7-4.9); Hematocrit 35.7 % (39.6-49.0); Lymphocytes % 1.6 % (15.3-44.8); MCV 110.2 fL (80-100); MPV 7.8 fL (7.6-11.3); Platelets 42 thou/uL (152-406); RBC Red Blood Cell Count 3.24 M/uL (4.33-5.43)
[2023-09-25 08:18] LABS: Protime INR 2.53
--- NOTE | 2023-09-25 08:29 | RAD REPORT ---
EXAM DESCRIPTION: CT - Head C Spine Cap Wo Con - 09/25/2023 7:52 am CLINICAL HISTORY: Head and neck injury with chest and abdominal pain status post fall TECHNIQUE: Computed axial tomography of head, neck, chest, abdomen and pelvis obtained. IV and oral contrast not requested. Coronal and sagittal reconstruction performed. All CT scans are performed using dose optimization technique as appropriate and may include automated exposure control or mA/KV adjustment according to patient size. COMPARISON: 2019 and 2021 FINDINGS: An intracranial bleed is not seen. The ventricles are normal in caliber. An extra-axial fluid collection is not noted. Fluid within the sinuses/mastoids is not seen. A cervical fracture is not seen. No dislocation is noted. The evaluation of mediastinum, lacho, vessels, solid organs and bowel are limited secondary to the lac k of contrast administration. A mediastinal hematoma is not noted. A pleural effusion is not seen. A lung contusion is not present. A 6 millimeter subpleural nodule left upper lobe. Mild left lower lobe atelectasis. Mild COPD The liver,spleen, pancreas, adrenals,kidneys and bladder do not demonstrate an acute traumatic injury Cirrhosis. 6.6 centimeter exophytic hepatic mass mildly enlarged. Mild splenomegaly. Varices. Small a mount of ascites Chronic marked compression fracture mid thoracic vertebral body IMPRESSION: No acute intracranial abnormality is seen. A cervical fracture is not visualized. If the patient continues to have symptoms to suggest intracran ial/spinal cord pathology MRI be recommended No acute traumatic abnormality involving the chest, abdomen or pelvis 6 millimeter subpleural left upper lobe nodule. Followup CT chest in 6-12 months recommended per Skye das guidelines Mild enlargement 6.6 centimeter hepatic mass probably neoplasm
[2023-09-25 08:31] LABS: Albumin 1.5 g/dL (3.4-5.0); Bilirubin Total 13.3 mg/dL (0.2-1.0); Potassium 5.4 mEq/L (3.5-5.1); Protein, Total 4.8 g/dL (6.4-8.2); Troponin High Sensitivity 19.1 pg/mL (<58.9)
--- NOTE | 2023-09-25 08:31 | RAD REPORT ---
EXAM DESCRIPTION: Lennie Single View09/25/2023 6:53 am CLINICAL HISTORY: Shortness of breath COMPARISON: September 2023 FINDINGS: Mild left lower lobe atelectasis without significant change The lungs appear clear of acute infiltrate. The heart is normal size
[2023-09-25 09:14] LABS: Blood Morphology Comment NOTED (NOT SEEN); Macrocytosis 2+; Platelet Estimate DECR; Teardrop Cell FEW
[2023-09-25 14:31] LABS: Specific Gravity 1.023 (1.005-1.030); Transitional Epithelial <5 /HPF (None Seen); Urine Bacteria <20 /HPF (<20); Urine Bilirubin 2+ (Negative); Urine Blood Negative (Negative); Urine Clarity Extremely Turbid (Clear); Urine Color Dark-Yellow (Yellow); Urine Glucose NEGATIVE (Negative); Urine Mucus 2+ /HPF (None Seen); Urine Protein 1+ (Negative); Urine RBC <5 /HPF (None Seen); Urine Urobilinogen 3+ (Normal)
--- NOTE | 2023-09-25 16:35 | RAD REPORT ---
EXAM DESCRIPTION: RAD - Pelvis - 09/25/2023 4:29 pm CLINICAL HISTORY: Pelvic pain status post injury FINDINGS: No fracture or dislocation is seen.
[2023-09-25 23:48] VITALS: TEMP 97.4
[2023-09-26 00:29] VITALS: BP 116/77; O2SAT 95
--- NOTE | 2023-09-26 14:32 | EKG ---
Test Date: 2023-09-25 Test Time: 08:17:38 [employer] Inspector: PH MEASUREMENT RESULTS: Intervals: Rate: 93 MA: 142 QRSD: 78 QT: 362 QTc: 450 [place]: P: 85 MA: 142 QRS: 69 T: 71 INTERPRETIVE STATEMENTS: Normal sinus rhythm T wave abnormality, consider anterior ischemia Abnormal ECG Compared to ECG 09/10/2023 12:40:41 Sinus tachycardia no longer present T-wave abnormality still present Possible ischemia still present Electronically Signed On 09-26-23 14:27:36 [employer]ACK MAKER by Wayne Jaramillo
== END ==
LOC: ER 06:24
PROC: 30233K1 Transfusion of Nonautologous Frozen Plasma into Peripheral Vein, Percutaneous Approach (ICD-10-PCS; principal; 2023-09-25)
PROC: 05HP33Z Insertion of Infusion Device into Right External Jugular Vein, Percutaneous Approach (ICD-10-PCS; 2023-09-25)
DX: K76.82 Hepatic encephalopathy (principal); A41.9 Sepsis, unspecified organism; R65.21 Severe sepsis with septic shock; R18.8 Other ascites; B19.20 Unspecified viral hepatitis C without hepatic coma; C22.9 Malignant neoplasm of liver, not specified as primary or secondary; E16.2 Hypoglycemia, unspecified; E87.5 Hyperkalemia; I95.9 Hypotension, unspecified; R10.819 Abdominal tenderness, unspecified site; Z91.81 History of falling; I10 Essential (primary) hypertension; J44.9 Chronic obstructive pulmonary disease, unspecified; Z91.013 Allergy to seafood; Z28.310 Unvaccinated for COVID-19
CPT/HCPCS: 93005; 87040 ×2; 85025; 81001; 36415; 82140; 86900; 86850; 87205 ×4; 85610; 86901; 82947; 83605 ×3; 85730; 84484; 83690; 80053; 83880; 70450; 71250; 72125; 71045; 72170; 36430; 36556; J3430; J7613; J7644; C9113; J3010 ×4; J0692; P9017 ×2; P9047; J7042 ×2; J7050; J7040; J7030 ×2; 51702; 87077; 87186; 96372; 99285